=== PATIENT | female | born 1990 | race Caucasian/White ===

== ENCOUNTER 2022-02-11 11:52 | Outpatient (CLI) | payer BC, SELFPAY | END 2022-02-11 11:53 | disposition home or self-care (01) | PROVIDERS: PCP Physician Assistant Medical; Visit Provider Physician Assistant | DX: Z87.59 Personal history of other complications of pregnancy, childbirth and the puerperium (principal) | CPT/HCPCS: 84702 ==

== ENCOUNTER 2022-02-16 14:00 | Outpatient (CLI) | payer BC, SELFPAY ==
--- NOTE | 2022-02-16 14:00 | CRLHL7_ITS ---
For Patients: As a result of the Cures Act, medical imaging exams and procedure reports are released immediately into your electronic medical record. You may view this report before your referring provider. If you have questions, please contact your health care provider. INDICATION: First trimester scan, establish dates. COMPARISON: None. TECHNIQUE: Real-time brewer-scale imaging of the pelvis was performed. FINDINGS: Sonographic imaging demonstrates a single living intrauterine gestation. The embryo demonstrates a regular cardiac rate measuring 158 beats per minute. The embryo`s crown-rump length measurement of 1.4 cm corresponds to a gestational age of 7 weeks 4 days with a sonographic due date of 10/01/2022. There is a normal-appearing yolk sac. There are no gross abnormalities noted within the embryo at this early state of development. The gestational sac has a normal appearance. There is a 4 x 4 x 2 millimeter perigestational hemorrhage. The amount of fluid within the sac appears appropriate for gestational age. The cervix is closed. The myometrium appears normal. The ovaries are of normal size. Corpus luteal cyst right ovary measuring 1.9 x 1.3 x 1.6 cm there are no suspicious fluid collections noted in the cul-de-sac. IMPRESSION: Single living intrauterine with sonographic gestational age 7 weeks 4 days and sonographic due date of 10/01/2022. Dictated by Jose Pruitt MD @ 02/17/2022 10:56:15 AM (Electronically Signed)
== END 2022-02-16 14:01 | disposition home or self-care (01) ==
LOC: US 14:01
PROVIDERS: PCP Physician Assistant Medical; Visit Provider Physician Assistant
DX: Z34.91 Encounter for supervision of normal pregnancy, unspecified, first trimester (principal); Z3A.01 Less than 8 weeks gestation of pregnancy
CPT/HCPCS: 76817

== ENCOUNTER 2022-02-16 15:55 | Outpatient (CLI) | payer BC, SELFPAY ==
[2022-02-16 21:13] LABS: Hepatitis B Surface Antigen* Negative (Negative)
[2022-02-16 21:22] LABS: HIV 1/2/P24 Combo Screen* Negative (Negative)
[2022-02-16 21:30] LABS: Hepatitis C Virus Antibody* Negative (Negative)
[2022-02-18 15:30] LABS: Varicella-Zoster Virus Ab, IgG 90.7 IV
[2022-02-18 15:34] LABS: Rubella Antibody IgG 26.7 IU/mL
[2022-02-18 20:11] LABS: Rapid Plasma Reagin (RPR) Non Reactive (Non Reactive)
--- OUTSIDE RECORDS SUMMARY | 2022-03-10 15:56 | XMS_ITS | Encounter Summary ---
:1990 Author Organization [facility] Address [address] [place] [address] Care Team Providers Name Role Phone No Ref-Primary, Physician Primary Care Provider [phone] Encounter Details Date Type Department Care Team Description 07/21/2019 Travel Social History Tobacco Use Types Packs/Day Years Used Date Never Smoker Sex Assigned at Date Recorded Not on file documented as of this encounter Plan of Treatment Not on filedocumented as of this encounter Visit Diagnoses Not on filedocumented in this encounter Care Teams Triage Nurse Relationship Specialty Start Date End Date No Ref-Primary, Physician PCP - General 07/21/19 documented as of this encounter
--- OUTSIDE RECORDS SUMMARY | 2022-03-10 15:56 | XMS_ITS | Encounter Summary ---
:1990 Author Organization [facility] Address [address] [address] Care Team Providers Name Role Phone Nemesio Rush Primary Care Provider Unavailable Reason for Visit Reason Comments Follow-up, NOS Encounter Details Date Type Department Care Team Description 12/21/2019 Telemedicine Specialty [facility] Ginna Gandhi, Savita roesophageal reflux [address] [facility]ILDA PECK disease with esophagitis Clinic [address] (Primary Dx) [address] [place], [place] [id number] Social History Tobacco Use Types Packs/Day Years Used Date Smoking Tobacco: Former Smokeless Tobacco: Never Alcohol Use Standard Drinks/Week Comments Yes 0.8 (1 standard drink = 0.6 oz pure alco hol) social, maybe once a month Alcohol Habits Answer Date Recorded How often do you have a drink containing Not asked alcohol? How many drinks containing alcohol do you Not asked have on a typical day when you are drinking? How often do you have six or more drinks on Not asked one occasion? Comment: social, maybe once a month 12/21/2019 Sex Assigned at Date Recorded Not on file documented as of this encounter Progress Notes Ginna Gandhi, MATILDA PECK - 12/21/2019 9:20 AM CDT DIGESTIVE CARE VIDEO VISIT NOTE Patient Name: Juliette Gaming Date: 12/21/2019 Primary Care Provider: Clinician [facility] CC: Follow up GERD, med refill SUBJECTIVE: 29 y.o. female with a history of GERD with esophagitis, depression and unspecified connective tissue disorder had a scheduled video visit today due to COVID-19 restrictions. Provider was in a private home office. Patient was in her living room with no other people present. Quality of video and audio was excellent. Patient has been on PPI ever since her upper endoscopy in 2017 in which she was found to have grade a esophagitis and no evidence of H pylori. She reports she currently takes her omeprazole daily in the morning before breakfast and only takes the 2nd dose if she is going to have high acid meal or if she has breakthrough symptoms. She reports that if she controls her diet, she rarely needs the 2nd dose. She has never attempted to wean to Pepcid and she denies any dysphagia, odynophagia or melena. Patient reports her joint symptoms started 1st before college and she is currently on Plaquenil. Consuelo uses NSAIDs and reports her joint pain is under good control between plaque 1 now and Tylenolalthough she did break her arm this past winter and had been on NSAIDs for short period of time. Patient does report she did need more PPI/2nd day dosing at that time. PAST MEDICAL HISTORY: Past Medical History: Diagnosis Date ??? Depression (HRC) ??? Dry mouth ??? Gastric reflux ??? Hypercholesterolemia ??? Joint disorder ??? Joint pain saw rheum, on plaquenil ??? Major depressive disorder, single episode, moderate (HRC) 02/07/2010 situational Past Surgical History: Procedure Laterality Date ??? COLONOSCOPY 2015 ??? EXTRACT, WISDOM/SINGLE TOOTH ??? UPPER GI ENDOSCOPY 2017 gastritis CURRENT MEDICATIONS: etonogestrel (NEXPLANON) 68 MG implant, Inject 68 mg subcutaneously continuous., Disp: , Rfl: fexofenadine (PATRICIA) 180 MG tablet, Take 180 mg by mouth daily as needed for Other., Disp: , Rfl: fluticasone (FLONASE) 50 MCG/ACT nasal solution, APPLY OR INSTILL 1 SPRAY INTO BOTH NOSTRILS DAILY.,Disp: 48 g, Rfl: 1 hydroxychloroquine (PLAQUENIL) 200 MG tablet, Take 1 Tablet by mouth daily. MUST HAVE PLAQUENIL EYE EXAM FOR FURTHER REFILLS, Disp: 90 Tablet, Rfl: 3 omeprazole (PRILOSEC) 20 MG capsule, TAKE 1 CAPSULE BY MOUTH TWICE DAILY BEFORE MEALS. TAKE 30 TO 60MINUTES BEFORE BREAKFAST AND EVENING MEAL., Disp: 180 Capsule, Rfl: 1 No current facility-administered medications on file as of 12/21/2019. ALLERGIES/SENSITIVITIES: No Known Allergies FAMILY HISTORY: No family history of GI diseases or malignancies. SOCIAL HISTORY: Tobacco use: Denies Alcohol use: Rare REVIEW OF SYSTEMS: GENERAL: Denies any unintentional weight loss, fevers, chills, dysphagia, odynphagia, melena or hematochezia. HEENT: Negative. CARDIAC: No chest pain or palpitations. PULMONARY: No shortness of breath or cough. MUSCULOSKELETAL: Chronic arthralgias DERMATOLOGIC: Denies any new skin rashes, juandice or pruritis. GENITOURINARY: Denies any dysuria, frequency, dark urine, hematuria or incontinence. NEUROLOGIC: Denies any headaches, weakness, focal numbness or confusion/altered mental status. GASTROINTESTINAL: See HPI ENDOCRINE: No thyroid or endocrine dysfunction known to patient. LYMPH: No bruising, bleeding or lymphadenopathy. PSYCHOLOGIC: No psychologic or psychiatric problems. Remainder of 12 point review of systems is otherwise negative. IMPRESSION: GERD Patient with history of significant GERD and evidence of grade a esophagitis on previous EGD reportsshe usually has good control of her acid reflux on once daily PPI only rarely needing to take the 2nd day dosing. She has never attempted to wean to Pepcid and she does attempt lifestyle modifications with decreased in spicy foods, citrus foods and limiting NSAIDs. We also discussed small frequent meals and not eating within a few hours of bedtime to also improve overall reflux. We discussed that attempting to wean to Pepcid would be ideal but if she hot as breakthrough reflux, would continue on once daily PPI. Would recommend she take calcium and vitamin-D while on PPI and have a yearly magnesium lab level checked. We did discuss the recent literature regarding PPI use under reason we would like to wean down to an H2 nora if possible. Patient is agreeable to above plan. She agrees to attempt to wean down to Pepcid and will be given a2 week prescription. If that works for her, will give her a prescription for Pepcid, if this does not work, go back to omeprazole. PLAN/RECOMMENDATIONS: 1. Trial of BID Pepcid. 2. Check a mag level. 3. Patient given the phone number to clinic for symptom update. If the Pepcid works will give her prescription for this, if not she can go back on omeprazole. 4. If she is going back on omeprazole, would recommend a daily calcium/vitamin-D supplement. 5. Reviewed antireflux precautions including avoiding spicy foods, chocolate, alcohol, caffeine and smoking. Discussed small frequent meals, no eating within three hours of bedtime and sleeping with the HOB slightly elevated. Total time of this video visit was 10 minutes in which greater than 50% of the visit was spent in counseling and coordination of care for GERD. Ginna Gandhi APRN. MATILDA [facility] [phone] documented in this encounter Plan of Treatment Not on filedocumented as of this encounter Visit Diagnoses Diagnosis Gastroesophageal reflux disease with eso phagitis - Primary documented in this encounter Care Teams Fur Vault Attendant Relationship Specialty Start Date End Date Victor Manuel Clinician PCP - General 11/22/[address] [place], [place] [address] documented as of this encounter
--- OUTSIDE RECORDS SUMMARY | 2022-03-10 15:56 | XMS_ITS | Encounter Summary ---
:1990 Author Organization [facility] Address [address], [place] [address] Care Team Providers Name Role Phone [facility], Clinician Primary Care Provider Unavailable Reason for Visit Reason Comments Video Visit Follow-up Encounter Details Date Type Department Care Team Description 12/11/2019 Telemedicine Tennyson Merlin Dacosta MD Undifferentiated connective tissue disea se (HRC); Rheumatology [address] [place] [address] High risk medication use [address] [place] [address] [phone] Social History Tobacco Use Types Packs/Day Years Used Date Smoking Tobacco: Former Smokeless Tobacco: Never Alcohol Use Standard Drinks/Week Comments Yes 0.8 (1 standard drink = 0.6 oz pure alco hol) soc Alcohol Habits Answer Date Recorded How often do you have a drink containing alcohol? Not asked How many drinks containing alcohol do you have on a typical Not asked day when you are drinking? How often do you have six or more drinks on one occasion? No t asked Comment: soc 05/26/2013 Sex Assigned at Date Recorded Not on file documented as of this encounter Progress Notes Merlin Dacosta MD - 12/11/2019 9:30 AM CDT Rheumatology Follow up Note This is a video visit. In the context of recent development with Coronavirus 19 the decision was made to schedule a video visit instead of an office visit. HPI: Juliette Gaming is a 29 y.o. female with medical history as stated below including history of undifferentiated connective tissue disease. Reviewing previous medical records, patient was previouslyseen by Dr. Winn in 2013 with a clinical presentation of generalized arthralgia, positive MELISSA and elevated inflammatory markers. She responded well to systemic prednisone and was started on [id number] mg twice daily which later on was lowered to 200 mg daily. Last time she was seen by Dr. Jiang and at that time it was felt that her disease was under control and stable. The decision was made to continue the Plaquenil 200 mg daily as a maintenance therapy. Patient is schedule today for follow-upa year and half later. She has been happy with the outcome so far from Plaquenil. Denies any skin rash, no sicca symptoms, no oral ulcers, no sun sensitivity, no Raynaud's phenomena. Sometimes morning stiffness lasting up to 1/2 hour. Does not take anything for pain. Denies any chest pain or shortnessof breath. ROS: Denies any fevers or chills. No chest pain or shortness of breath. No sicca symptoms, no oral ulcers, no Raynaud's phenomena. No skin rash, no sun sensitivity. The rest of review of systems is negative or as stated per history of present illness. Patient Active Problem List Diagnosis ??? Chronic rhinitis ??? Cough ??? Contraceptive surveillance ??? Insomnia ??? Abnormal TSH ??? Familial hyperlipidemia ??? Undifferentiated connective tissue disease (HRC) ??? Cervical cancer screening ??? High risk medication use Past Medical History: Diagnosis Date ??? Depression (HRC) ??? Dry mouth ??? Gastric reflux ??? Hypercholesterolemia ??? Joint disorder ??? Joint pain saw rheum, on plaquenil ??? Major depressive disorder, single episode, moderate (HRC) 02/07/2010 situational Past Surgical History: Procedure Laterality Date ??? COLONOSCOPY 2015 ??? EXTRACT, WISDOM/SINGLE TOOTH ??? UPPER GI ENDOSCOPY 2017 gastritis Outpatient Encounter Medications as of 12/11/2019 Medication Sig Dispense Refill ??? etonogestrel (NEXPLANON) 68 MG implant Inject 68 mg subcutaneously continuous. ??? fexofenadine (PATRICIA) 180 MG tablet Take 180 mg by mouth daily as needed for Other. ??? fluticasone (FLONASE) 50 MCG/ACT nasal solution APPLY OR INSTILL 1 SPRAY INTO BOTH NOSTRILS DAILY. 48 g 1 ??? hydroxychloroquine (PLAQUENIL) 200 MG tablet Take 1 Tablet by mouth daily. MUST HAVE PLAQUENIL EYE EXAM FOR FURTHER REFILLS 90 Tablet 3 ??? omeprazole (PRILOSEC) 20 MG capsule TAKE 1 CAPSULE BY MOUTH TWICE DAILY BEFORE MEALS. TAKE 30 TO60 MINUTES BEFORE BREAKFAST AND EVENING MEAL. 180 Capsule 1 ??? [DISCONTINUED] hydroxychloroquine (PLAQUENIL) 200 MG tablet Take 1 Tablet by mouth two times a day. MUST HAVE PLAQUENIL EYE EXAM FOR FURTHER REFILLS 60 Tablet 0 No facility-administered encounter medications on file as of 12/11/2019. No Known Allergies Social History Substance and Sexual Activity Alcohol Use Yes ??? Alcohol/week: 0.8 standard drinks ??? Types: 1 Standard drinks or equivalent per week Comment: soc Social History Tobacco Use Smoking Status Former Smoker Smokeless Tobacco Never Used EXAM General Appearance: Pleasant, alert, appropriate appearance for age. No acute distress HEENT Exam: Normocephalic, atraumatic, clear sclera. Neck Exam: Supple, no masses. Chest/Respiratory Exam: Patient breathing normally, no signs of distress. Musculoskeletal Exam: Normal muscle bulk. No signs of active synovitis visualized on video exam. No joint effusion. Full range of motion in all 4 extremities. Skin: no rash Neurologic Exam: Nonfocal, normal gross motor movement and coordination. No tremor. Lab: Lab Results Component Value Date WBC 6.9 04/19/2017 RBC 4.63 04/19/2017 Hemoglobin 12.1 04/19/2017 HCT 37.5 04/19/2017 MCV 81.0 04/19/2017 RDW 13.3 04/19/2017 Platelets 311 04/19/2017 Lab Results Component Value Date AST (SGOT) 27 02/23/2014 Lab Results Component Value Date Creatinine 0.69 05/03/2018 Assessment and Plan: Patient with longstanding history of undifferentiated connective tissue disease has been stable on current therapy with Plaquenil 200 mg daily. At this time there is a low suspicion for any active disease. The decision was made to continue current therapy of Plaquenil 200 mg daily since this has been beneficial for her. Recommend annual eye exam during the time on Plaquenil. Return to clinic in 1 year for follow-up or sooner if needed. Merlin Dacosta. Rheumatology [facility] documented in this encounter Plan of Treatment Not on filedocumented as of this encounter Visit Diagnoses Diagnosis Undifferentiated connective tissue disea se (HRC) Unspecified diffuse connective tissue di sease High risk medication use Encounter for long-term (current) use of other medications documented in this encounter Care Teams Insert Molding Operator Relationship Specialty Start Date End Date Victor Manuel, Clinician PCP - General 11/22/18 [address] [address] documented as of this encounter
--- OUTSIDE RECORDS SUMMARY | 2022-03-10 15:56 | XMS_ITS | Encounter Summary ---
:1990 Author Organization [facility] Address [address] [address] Care Team Providers Name Role Phone [facility], Clinician Primary Care Provider Unavailable Reason for Visit Reason Comments Refill omeprazole (PRILOSEC) 20 MG capsule [Pharmacy Med Name: OMEPRAZOLE 20MG CAPSULES] Encounter Details Date Type Department Care Team Description 05/12/2019 Refill [facility] [address] , Refill (omeprazole [facility] ENGLISH INSTRUCTOR, GAS CHECK PAD MAKER (PRILOSEC) 20 MG capsule [address] [Pharmacy Med Name: [place] [address] [place], [place] OMEPRAZOLE 20MG [phone] [id number] CAPSULES]) [phone] (Wo rk) Social History Tobacco Use Types Packs/Day Years [...] on file documented as of this encounter Nursing Notes Gwen Bear, MAGO - 10/10/2019 4:13 PM CDT PA approved for omeprazole (PRILOSEC) 20 MG capsule. Pharmacy notified. Omari Muhammad APRN, GAS CHECK PAD MAKER - 05/12/2019 2:17 PM CDT Please call Juliette to have labs drawn to make sure she does not have any deficiencies from omeprazole use. Thank you. Omari Muhammad APRN, MATILDA 05/12/2019, 2:17 PM Interface, Out Surescripts Prov Query - 05/12/2019 2:09 PM CDT omeprazole (PRILOSEC) 20 MG capsule [Pharmacy Med Name: OMEPRAZOLE 20MG CAPSULES] GERD / PUD - PPI's -> The requested sig has changed from the last order. -> Refill x 3 months (courtesy refill. overdue for an office visit and Mg Level check) -> Calculate quantity and refills manually. They could not be estimated due to missing or unreadable information. Last qualifying visit: 05/03/2018 (in [facility] GASTRO[facility] with OMARI MUHAMMAD) Next scheduled visit: None Last ordered by OMARI MUHAMMAD: 05/03/2018 (374 days ago) QTY: 180, Refills: 3, Sig: take 1 capsule by mouth two times a day before meals. take 30-60 minutes before breakfast and evening meal (changed) Mg Level: 2.5 mg/dL on 05/03/2018 Powered by Zendrive, Reference: [id number], 05/12/2019 2:09:16 PM CDT, Pool: Jb Sahni Care Team ([id number]) ERTY MANAGEMENT SPECIALIST Interface, Out [employer] Prov Query - 05/12/2019 2:09 PM CDT The following lab order(s) may be associated with the Result Note below: MAGNESIUM Notes Recorded by Chrissie Acharya LPN on 05/03/2018 at 2:07 PM Results letter sent. Chrissie Acharya LPN 05/03/2018, 2:07 PM ------ Notes Recorded by Omari Muhammad APRN, GAS CHECK PAD MAKER on 05/03/2018 at 1:16 PM Juliette, Your electrolyte and magnesium levels are normal. Your vitamin D level is quite low which could be contributing to joint and muscle pain. Please take vitamin D and calcium supplements as we discussed during your visit. Please call for further questions or concerns. Omari Muhammad APRN, GAS CHECK PAD MAKER 05/03/2018, 1:16 PM ERTY MANAGEMENT SPECIALIST documented in this encounter Plan of Treatment Not on filedocumented as of this encounter Visit Diagnoses Diagnosis Current use of proton pump inhibitor - P rimary Gastroesophageal reflux disease, esophag itis presence not specified documented in this encounter Care Teams Product Managent Intern Relationship Specialty Start Date End Date Victor Manuel, Nemesio PCP - General 11/22/[address] [place] [address] documented as of this encounter
--- OUTSIDE RECORDS SUMMARY | 2022-03-10 15:56 | XMS_ITS | Encounter Summary ---
:1990 Author Organization [facility] Address [address] [address] Care Team Providers Name Role Phone [facility], Clinician Primary Care Provider Unavailable Reason for Visit Reason Comments Refill omeprazole (PRILOSEC) 20 MG capsule [Pharmacy Med Name: OMEPRAZOLE 20MG CAPSULES] Encounter Details Date Type Department Care Team Description 03/16/2020 Refill [facility] [address] Muhammad , Refill (omeprazole [facility] PEST LOCATOR, REAL ESTATE ECONOMIST (PRILOSEC) 20 MG capsule [address] [Pharmacy Med Name: [place] [address] [place], [place] OMEPRAZOLE 20MG [phone] [id number] [address]ES]) [phone] (Wo rk) Social History Tobacco Use Types [...] documented as of this encounter Nursing Notes Rani Chacon RN - 03/21/2020 10:13 AM CDT Called patient to discuss refill for Omeprazole. Patient reports trying to wean off of the Omeprazole: tried it for a couple of weeks and took the Pepcid. She said that the Pepcid wears off after 8 hours. Patient restarted Omeprazole once daily and Pepcid at bedtime. Ginna Gandhi APRN, CNP is out of office this week. Will send refill encounter to Irina Martinez PA-C to review and refill if appropriate. Rani Chacon RN 03/21/2020, 10:21 AM Jory Sequeira RN - 03/18/2020 3:15 PM CDT Called patient, left message for patient to call the digestive care clinic and ask to speak to a nurse Patient is overdue for magnesium lab, Order placed for magnesium level Patient was to wean off of omeprazole and try two weeks of Pepcid to see if this works for her reflux per Ginna Gandhi APRN, CNP telemedicine note from 12/21/2019 Jory Sequeira RN 03/18/2020, 3:19 PM Telemedicine 12/21/2019 IMPRESSION: GERD Patient with history of significant GERD and evidence of grade a esophagitis on previous EGD reportsshe usually has good control of her acid reflux on once daily PPI only rarely needing to take the 2nd day dosing. ?? She has never attempted to wean to [...] down to an H2 nora if possible. ?? Patient is agreeable to above plan. She agrees to attempt to wean down to Pepcid and will be given a2 week prescription. If that works for her, will give her a prescription for Pepcid, if this does not work, go back to omeprazole. ?? PLAN/RECOMMENDATIONS: 1. Trial of BID Pepcid. 2. [...] and sleeping with the HOB slightly elevated. ? Total time of this video visit was 10 minutes in which greater than 50% of the visit was spent in counseling and coordination of care for GERD. ?? Ginna Gandhi APRN. REAL ESTATE ECONOMIST Interface, Out Surescripts Prov Query - 03/16/2020 3:28 AM CDT omeprazole (PRILOSEC) 20 MG capsule [Pharmacy Med Name: OMEPRAZOLE 20MG CAPSULES] GERD / PUD - PPI's -> The requested sig has changed from the last order. -> Mg Level is overdue (performed 23 months ago, required every 12 months) Last qualifying visit: 12/21/2019 (in [facility] GASTROENTEROLOGY with GINNA GANDHI) Next scheduled visit: None Last ordered by OMARI MUHAMMAD R: 05/12/2019 (309 days ago) QTY: 180, Refills: 1, Sig: take 1 capsule by mouth twice daily before meals. take 30 to 60 minutes before breakfast and evening meal. (changed) Mg Level: 2.5 mg/dL on 05/03/2018 Powered by [employer]orank, Reference: [id number], 03/16/2020 3:28:36 AM CDT, Pool: Jb Sahni Care Team ([id number]) Interface, Out [facility] Query - 03/16/2020 3:28 AM CDT The following lab order(s) may be associated with the Result Note below: MAGNESIUM Notes Recorded by Chrissie Acharya LPN on 05/03/2018 at 2:07 PM Results letter sent. Chrissie Acharya LPN 05/03/2018, 2:07 PM ------ Notes Recorded by Omari Muhammad APRN, REAL ESTATE ECONOMIST on 05/03/2018 at 1:16 PM Juliette, Your electrolyte and magnesium levels are normal. Your vitamin D level is quite low which could be contributing to joint and muscle pain. Please take vitamin D and calcium supplements as we discussed during your visit. Please call for further questions or concerns. Omari Muhammad APRN, MATILDA 05/03/2018, 1:16 PM documented in this encounter Plan of Treatment Not on filedocumented as of this encounter Visit Diagnoses Diagnosis Gastroesophageal reflux disease, esophag itis presence not specified documented in this encounter Care Teams Skin Lifter Bacon Relationship Specialty Start Date End Date Victor Manuel, Clinician PCP - General 11/22/18 [address] [place] [address] documented as of this encounter
--- OUTSIDE RECORDS SUMMARY | 2022-03-10 15:56 | XMS_ITS | Encounter Summary ---
:1990 Author Organization [place] Address [facility] [place] [address] Care Team Providers Name Role Phone Lazarus Galeas MD Primary Care Provider [phone] Reason for Visit Reason Comments Urgent Care Head Injury Patient reports got knocked on ice playing hockey yesterday, this am neck hurts worse than yesterday, head hurts the same. Denies loss of consciousness, denies numbne ss/tingling of extremities. Encounter Details Date Type Department Care Team Description 11/24/2009 Office Visit [facility] W, Head C ontusion (Primary Dx); Urgent Care Tana AKINS Neck Pain [address] [place] [address] Social History Tobacco Use Types Packs/Day Years Used Date Never Smoker Sex Assigned at Date Recorded Not on file documented as of this encounter Last Filed Vital Signs Vital Sign Reading Time Taken Comments Blood Pressure 106/65 11/24/2009 11:04 AM CDT Pulse 98 11/24/2009 11:04 AM CDT Temperature 36.4 ??C (97.6 ??F) 11/24/2009 11:04 AM CDT Respiratory Rate - - Oxygen Saturation - - Inhaled Oxygen Concentration - - Weight 53.5 kg (118 lb) 11/24/2009 11:04 AM CDT Height 158.8 cm (5' 2.5) 11/24/2009 11:04 AM CDT Body Mass Index 21.24 11/24/2009 11:04 AM CDT Body Mass Index Percentile 48.24 % 11/24/2009 11:04 AM C DT Growth Chart: CDC (Girls, 2-20 Years) documented in this encounter Progress Notes Fox Duarte - 11/24/2009 11:30 AM CDT HPI 19 year old female injured playing hockey yesterday. Patient was wearing a helmet when another player hit her causing her to fall backwards and hit the back of her head on the ice. Denies loss of consciousness, blurred vision, nausea or emesis. Patient states she has had a mild concussion in the past. Patient played only a little bit of the rest of the hockey game. Headache and neck pain persists today. Patient denies any amnesia or trouble concentrating. Headache and neck pain intensity if mild to moderate. Past Medical History: Denies chronic problem Review of Systems Constitutional: Negative. HENT: Positive for neck pain. Negative for hearing loss, ear pain, nosebleeds, congestion, sore throat and tinnitus. Eyes: Negative. Respiratory: Negative. Cardiovascular: Negative. Gastrointestinal: Negative. Negative for nausea and vomiting. Musculoskeletal: Positive for back pain. Skin: Negative. Neurological: Positive for headaches. Negative for dizziness, sensory change, focal weakness and loss of consciousness. All other systems reviewed and are negative. Physical Exam Nursing note and vitals reviewed. Constitutional: She is oriented to person, place, and time and well-developed, well-nourished, and in no distress. HENT: Head: Normocephalic. Right Ear: Tympanic membrane and ear canal normal. Left Ear: Tympanic membrane and ear canal normal. Nose: Nose normal. Mouth/Throat: Oropharynx is clear and moist. Mild local tenderness posterior skull. Eyes: Conjunctivae and extraocular motions are normal. Pupils are equal, round, and reactive to light. Neck: Normal range of motion. Neck supple. Bilateral paracervical and trapezius muscle tenderness with palpation. Cardiovascular: Normal rate and regular rhythm. Pulmonary/Chest: Effort normal and breath sounds normal. She exhibits no tenderness. Abdominal: Soft. Bowel sounds are normal. No tenderness. Musculoskeletal: Normal range of motion. Neurological: She is alert and oriented to person, place, and time. She has normal reflexes. No cranial nerve deficit. Skin: Skin is warm and dry. C-spine x-ray: within normal limits Assessment: Head contusion Neck/upper back strain Plan: Conservative cares. No physical exertion until at least 24 hours symptom free (neurologically). Warned of second impact syndrome. Follow up with primary MD if symptoms persist. Check official radiology report. If acutely worsens, to emergency department sooner. documented in this encounter Nursing Notes 11/24/2009 10:35 AM CDT >> FARA Thibodeaux Nov 24, 2009 11:06 AM Patient presents with: Urgent Care Head Injury - Patient reports got knocked on ice playing hockey yesterday, this am neck hurts worsethan yesterday, head hurts the same. Denies loss of consciousness, denies numbness/tingling of extremities. Initial BP 106/65 Pulse 98 Temp(Src) 97.6 ??F (36.4 ??C) (Oral) Ht 5' 2.5 (1.588 m) Wt 118 lb (53.524 kg) Estimated Body mass index is 21.24 kg/(m^2) as calculated from the following: Height as of this encounter: 5' 2.5(1.588 m). Weight as of this encounter: 118 lb(53.524 kg).. BP completed using cuff size: regular Fara Mcintosh RN documented in this encounter Plan of Treatment Not on filedocumented as of this encounter Procedures Procedure Name Priority Date/Time Associated Diagnosis Comme nts X-RAY CERV SPINE Routine 11/24/2009 Neck Pain Results for this 2-3 VIEWS procedure are i n the results section . documented in this encounter Results X-RAY CERV SPINE 2 VW (11/24/2009) Anatomical Region Laterality Modality Other Narrative This result has an attachment that is no t available. Fox Duarte MD GENERAL IMAGING documented in this encounter Visit Diagnoses Diagnosis Head contusion - Primary Contusion of face, scalp, and neck excep t eye(s) Neck pain Cervicalgia documented in this encounter Care Teams General Production Manager Relationship Specialty Start Date End Date Lazarus Galeas MD PCP - General 10/07/08 07/19/19 [id number] [facility] [place] [id number] documented as of this encounter
--- OUTSIDE RECORDS SUMMARY | 2022-03-10 15:56 | XMS_ITS | Clinical Summary ---
:1990 [facility] Address [address] [place] [address] Care Team Providers Name Role Phone Victor Manuel, Clinician Primary Care Provider Unavailable Source Comments You are receiving this document as you are listed as the primary care provider,follow-up provider, or the patient has been referred to you for consultation.This is in compliance with the Medicare and Medicaid EHR Incentive Program,which states Providers who transition their patient to another setting of careor provider of care or refers their patient to another provider of care shouldprovide summarycare record for each transition of care or referral. [facility] Allergies No known active allergies Medications Medication Sig Dispensed Refills Start Date End Date Status fexofenadine (PATRICIA) Take 180 mg by 0 Active 180 MG tablet mouth daily as needed for Other. fluticasone (FLONASE) 50 APPLY OR 48 g 1 03/22/2017 Active MCG/ACT nasal solution INSTILL 1 SPRAY INTO BOTH NOSTRILS DAILY. hydroxychloroquine Take 1 Tablet 90 Tablet 3 12/11/2019 Active (PLAQUENIL) 200 MG by mouth daily. tabletIndications: MUST HAVE Undifferentiated PLAQUENIL EYE connective tissue EXAM FOR disease (HRC), High risk FURTHER REFILLS medication use famotidine (PEPCID) 20 TAKE 1 TABLET 180 Tablet 3 01/11/2020 Active MG tablet BY MOUTH TWICE DAILY omeprazole (PRILOSEC) 20 Take 1 Capsule 90 Capsule 0 0 Active MG capsuleIndications: by mouth daily Gastroesophageal reflux before disease, esophagitis breakfast. presence not specified Active Problems Problem Noted Date High risk medication use 05/26/2018 Cervical cancer screening 04/07/2017 Overview: 2013 NILM 2017 ASCUS, HPV negative 26 y.o. Plan: annual Pap d/t Plaquenil rx Undifferentiated connective tissue disease 05/25/2016 Abnormal TSH 12/14/2013 Familial hyperlipidemia 12/14/2013 Insomnia 02/18/2011 Contraceptive surveillance 07/29/2010 Chronic rhinitis 12/23/2004 Cough 12/23/2004 Resolved Problems Problem Noted Date Resolved Date Major depressive disorder, single episode, moderate 02/08/20 10 10/08/2011 Hypercholesterolemia 12/14/2013 Immunizations Name Administration Dates Next Due 4vHPV (Gardasil) 11/18/2007, 07/13/2007, 05/05/2007 DTaP 02/23/1997, 02/12/1993, 01/10/1992, 1991, 1991 Flu Vac (3+ yrs) 05/23/2008 HepA Adult (19+ yrs) 12/14/2013 HepB, Unspecified Formulation 11/19/1995, 02/12/1993, 1991 Influenza IIV4 (Quadrivalent) 0.5mL 05/26/2018, 04/19/2017, 04/02/2015, ([id number]) 05/10/2014, 05/26/2013 Influenza Vaccine (3+years) ([facility] 04/22/2009 Clinic) Influenza, Unspecified Formulation 05/03/2011 MCV4 (Menactra) 05/05/2007 MMR 03/12/2004, 10/21/1992 OPV, Trivalent (Orimune or tOPV) 02/23/1997, 02/12/1993, 03/1992, 1991 Pfizer (Comirnaty) COVID-19, 12+ Yrs 09/10/2020, 08/20/2020 Purple Top Td 03/12/2004 Tdap 10/08/2011 Varicella 05/16/2009, 11/19/1995 Family History Medical History Relation Name Comments Anxiety Father Other Father Possible lactose intolerance Hyperlipidemia Mother Coronary Artery Disease Maternal Grandfather d [place] in his 40s Other Maternal Grandmother arthritis Alzheimer's Paternal Grandfather Asthma Paternal Grandfather Coronary Artery Disease Paternal Grandfather Glaucoma Paternal Grandmother Cancer, Breast Negative Family History Cancer, Colon Negative Family History Cancer, Ovary Negative Family History Macular Degeneration Negative Family History Retinal Detachment Negative Family History Relation Name Status Comments Father Alive Mother Alive Brother Alive Maternal Grandfather (Age 45) [place] Maternal Grandmother (Age ? age) pancre atic ca Paternal Grandfather Alive Paternal Grandmother Alive Social History Tobacco Use Types Packs/Day Years [...] Assigned at Date Recorded Not on file Last Filed Vital Signs Vital Sign Reading Time Taken Comments Blood Pressure 122/47 05/26/2018 8:32 AM CDT Pulse 90 05/26/2018 8:32 AM CDT Temperature 36.9 ??C (98.5 ??F) 05/03/2018 8:12 AM CDT Respiratory Rate 16 04/28/2017 8:46 AM CDT Oxygen Saturation 100% 07/29/2017 3:05 PM PHYSICAL THERAPY PROFESSOR Inhaled Oxygen Concentration - - Weight 90.3 kg (199 lb) 05/26/2018 8:32 AM CDT Height 160 cm (5' 3) 05/26/2018 8:32 AM CDT Body Mass Index 35.25 05/26/2018 8:32 AM CDT Plan of Treatment Health Maintenance Due Date Last Done Comments HIV Screening (Preventive 2007 Services) Pap 03/26/2018 03/26/2017, 05/26/2013 Adult Preventive Visit 03/26/2019 03/26/2017, 05/26/2013, 12/16/2011, Additional history exists COVID-19 Vaccine (3 - 02/07/2021 09/10/2020, 08/20/2020 Booster for Pfizer series) DTaP/Tdap/Td (7 - Tdap) 10/07/2021 10/08/2011, 03/12/2004, 03/12/2004, Additional history exists Influenza (#1) 2022 06/30/2021, 05/26/2018, 04/19/2017, Additional history exists Zoster/Shingles (1 of 2) 2041 HepB Completed 11/19/1995, 02/12/1993, 07/02/1992 IPV (Polio) Completed 02/23/1997, 02/12/1993, 1991, Additional history exists MCV4 Aged Out 05/05/2007 No longer eligib le based on patient 's age to complete this topic HepA Completed 12/14/2013, 11/21/2012 Hep C Screening (Preventive Completed 02/23/2014 Services) HPV Vaccine Completed 10/20/2021, 11/18/2007, 07/13/2007, Additional history exists Hib Aged Out No longer eligib le based on patient 's age to complete this topic Pneumococcal Aged Out No longer eligib le based on patient 's age to complete this topic Insurance Payer Benefit Subscriber ID Effective Phone Address Type Plan / Dates Group VICTOR MANUEL [facility] [id number] 2015-Pres C ommercial DENTAL PLAN [facility] ent DENTAL BC[facility] [id number] 2020-Pres [address] om[address] ent [id number] [place] [address] Care Teams Sr. Payroll Processor Relationship Specialty Start Date End Date Victor Manuel Clinician PCP - General 11/22/[address] [place] [address]
--- OUTSIDE RECORDS SUMMARY | 2022-03-10 15:56 | XMS_ITS | Encounter Summary ---
:1990 Author Organization [facility] Address [address] [place] [address] Care Team Providers Name Role Phone No Ref-Primary, Physician Primary Care Provider [phone] Reason for Referral Diagnostic Imaging CT Scan (Routine) - Closed Specialty Diagnoses / Procedures Referred By Contact Refer red To Contact Radiology. Diagnoses Fracture of left olecranon process Sandy Vanegas MD Ct Scan Procedures CT Elbow Left w/o Contrast [facility] [address] [facility] [address] [place] [phone] Fax: Referral ID Status Reason Start Date Expiration Date Visits Requ ested Visits Authorized [id number] Closed 07/20/2019 07/19/2020 1 1 UTER FORENSIC EXAMINER Reason for Visit Diagnostic Imaging CT Scan (Routine) - Closed Specialty Diagnoses / Procedures Referred By Contact Refer red To Contact Radiology. Diagnoses Fracture of left olecranon process Sandy Vanegas MD Ct Scan Procedures CT Elbow Left w/o Contrast [facility] [address] [facility] [address] [place] [phone] Fax: Referral ID Status Reason Start Date Expiration Date Visits Requ ested Visits Authorized [id number] Closed 07/20/2019 07/19/2020 1 1 Encounter Details Date Type Department Care Team Description 07/21/[address] [facility] Sandy Vanegas of left [facility] MD Lilia olecranon process [address] [place], [place] [facility] [address] [phone] [address] [place], [place] [id number] Social History Tobacco Use Types Packs/Day Years Used Date Never Smoker Sex Assigned at Date Recorded Not on file documented as of this encounter Medications at Time of Discharge Medication Sig Dispensed Refills Start Date End Date NEW MED control pill, 0 doesn't know name ondansetron (ZOFRAN ODT) Take 1 tablet (4 mg) 10 tablet 0 1 09/19/2018 4 MG ODT tab by mouth every 8 hours as needed for nausea oxyCODONE-acetaminophen Take 1-2 tablets by 12 tablet 0 (PERCOCET) 5-325 MG mouth every 4 hours tablet as needed for pain ibuprofen (ADVIL/MOTRIN) Take 1 tablet (600 60 tablet 0 08/18/2019 600 MG tablet mg) by mouth every 6 hours as needed for moderate pain or fever documented as of this encounter Plan of Treatment Not on filedocumented as of this encounter Procedures Procedure Name Priority Date/Time Associated Diagnosis Comme nts CT ELBOW LEFT W/O Routine 07/21/2019 8:12 AM Fracture of left Results for this CONTRAST COMPUTER FORENSIC EXAMINER olecranon process procedure are in the results section. documented in this encounter Results CT Elbow Left w/o Contrast (07/21/2019 8:12 AM COMPUTER FORENSIC EXAMINER) Anatomical Region Laterality Modality Left Elbow, SUBRAD CT MSK, UMP CT MSK, RAD CT Computed Tomography Specimen (Source) Anatomical Location Collection Method / Collectio n Time Received Time / Laterality Volume Impressions 07/21/2019 12:01 PM COMPUTER FORENSIC EXAMINER IMPRESSION: Redemonstrated are the transverse fracture at the base of the olecranon process which shows no sig nificant displacement, oblique fracture lateral epicondyle, mildly disp laced coronoid fracture, minimally displaced fracture lateral mar gin radial head. No significant change. 3-D reconstructions are provided. ALEXANDRU OATES MD Narrative 07/21/2019 12:01 [address] FORENSIC EXAMINER CT ELBOW LEFT WITHOUT CONTRAST 07/21/2019 8:12 AM HISTORY: Evaluate left elbow fracture. F racture of left olecranon process. TECHNIQUE: Axial scans were performed th rough the left elbow with 3-D reconstruction. Radiation dose for this scan was reduced using automated exposure control, adjustment o f the mA and/or kV according to patient size, or iterative reconstruc tion technique. COMPARISON: CT left elbow from 9. Procedure Note Alexandru Oates MD - 07/21/2019Formattin g of this note might be different from the original. CT ELBOW LEFT WITHOUT CONTRAST 9 8:12 AM HISTORY: Evaluate left elbow fracture. F racture of left olecranon process. TECHNIQUE: Axial scans were performed th rough the left elbow with 3-D reconstruction. Radiation dose for this scan was reduced using automated exposure control, adjustment o f the mA and/or kV according to patient size, or iterative reconstruc tion technique. COMPARISON: CT left elbow from 9. IMPRESSION: Redemonstrated are the trans verse fracture at the base of the olecranon process which shows no sig nificant displacement, oblique fracture lateral epicondyle, mildly disp laced coronoid fracture, minimally displaced fracture lateral mar gin radial head. No significant change. 3-D reconstructions are provided. ALEXANDRU OATES MD Sandy Vanegas MD IMG CT ORDERABLES documented in this encounter Visit Diagnoses Diagnosis Fracture of left olecranon process Closed fracture of olecranon process of ulna documented in this encounter Care Teams Print Producer Relationship Specialty Start Date End Date No Ref-Primary, Physician PCP - General 07/21/19 documented as of this encounter
--- OUTSIDE RECORDS SUMMARY | 2022-03-10 15:56 | XMS_ITS | Clinical Summary ---
:1990 Author Organization [place] Address [address] [place] [address] Care Team Providers Name Role Phone No Ref-Primary, Physician Primary Care Provider [phone] Allergies No known active allergies Medications Medication Sig Dispensed Refills Start Date End Date Status NEW MED control 0 Active pill, doesn't know name ondansetron (ZOFRAN Take 1 tablet (4 10 tablet 0 07/19/2019 Active ODT) 4 MG ODT tab mg) by mouth every 8 hours as needed for nausea oxyCODONE-acetaminophe Take 1-2 tablets 12 tablet 0 07/19/2019 Active n (PERCOCET) 5-325 MG by mouth every 4 tablet hours as needed for pain Social History Tobacco Use Types Packs/Day Years Used Date Never Smoker Sex Assigned at Date Recorded Not on file Last Filed Vital Signs Vital Sign Reading Time Taken Comments Blood Pressure 162/92 07/19/2019 1:30 PM MEDIA RELATIONS ASSOCIATE Pulse 97 07/19/2019 1:30 PM MEDIA RELATIONS ASSOCIATE Temperature 36.4 ??C (97.5 ??F) 07/19/2019 8:22 AM MEDIA RELATIONS ASSOCIATE Respiratory Rate 18 07/19/2019 12:30 PM MEDIA RELATIONS ASSOCIATE Oxygen Saturation 99% 07/19/2019 1:30 PM MEDIA RELATIONS ASSOCIATE Inhaled Oxygen Concentration - - Weight 87.2 kg (192 lb 3.2 oz) 07/19/2019 10:31 AM MEDIA RELATIONS ASSOCIATE Height 158.8 cm (5' 2.5) 11/24/2009 11:04 AM CDT Body Mass Index 34.59 11/24/2009 11:04 AM CDT Plan of Treatment Health Maintenance Due Date Last Done Comments ADVANCE CARE PLANNING 1991 ANNUAL REVIEW OF HM ORDERS 1991 PREVENTIVE CARE VISIT 1991 COVID-19 Vaccine (#1) 01/10/1992 DTAP/TDAP/TD IMMUNIZATION 2002 02/23/1997, 02/12/1993 , (6 - Tdap) 01/10/1992, Additional history exists HIV SCREENING 2006 HEPATITIS C SCREENING 2009 PAP 2012 PHQ-2 (once per calendar 08/02/2021 year) INFLUENZA VACCINE (#1) 2022 05/26/2018, 04/19/2017, 03/31/2016, Additional history exists HEPATITIS B IMMUNIZATION Completed 11/19/1995, 02/12/1993, 07/02/1992 IPV IMMUNIZATION Aged Out No longer eligi ble based on patient 's age to complete this topic MENINGITIS IMMUNIZATION Aged Out No longe r eligible based on patient 's age to complete this topic Pneumococcal Vaccine: Aged Out No longer eligible Pediatrics (0 to 5 Years) based on patient's age and At-Risk Patients (6 to to co mplete this topic 64 Years) Insurance Payer Benefit Plan / Subscriber ID Effective Dates Phone Addre ss Type Group BCBS [place] [id number] 2018-[place]elo [phone] [address] [address] Indemnity t 0 [place] [address] Care Teams Burlap Worker Relationship Specialty Start Date End Date No Ref-Primary, Physician PCP - General 07/21/19
--- OUTSIDE RECORDS SUMMARY | 2022-03-10 15:56 | XMS_ITS | Encounter Summary ---
:1990 Author Organization [facility] Address [address] [place] [address] Care Team Providers Name Role Phone [facility], Clinician Primary Care Provider Unavailable Reason for Visit Reason Comments SKIN LESION Left upper back mole has fal lamonte off, spot mid back possibly removed. Encounter Details Date Type Department Care Team Description 11/14/2021 Procedure Visit [facility] [address] IN LESION (Left Dermatology MD Oma upper back mole has [address] fal lamonte off, spot [address] back possibly [place], [place] re moved. ) [phone] Social History Tobacco Use Types Packs/Day Years [...] documented as of this encounter Progress Notes Ana Elder MD - 11/14/2021 11:15 AM CDT Chief Complaint Patient presents with ??? SKIN LESION Left upper back mole has fallen off, spot mid back possibly removed. History of Present Illness: Juliette Gaming is a 31 y.o. female here for follow- up, we had discussedremoving a mole on the left upper back, the spot has since fallen off and resolved entirely. She would like a mole on her right back removed today as it is intermittently irritated. Past Medical History: No history of skin cancer. She recently suffered a miscarriage. Medications: The patient has a current medication list which includes the following prescription(s): famotidine, fexofenadine, fluticasone propionate, hydroxychloroquine, and omeprazole. Allergies: The patient has No Known Allergies. Physical Exam: General: Well appearing female in no acute distress, alert and oriented x 3, normal affect. Skin: Noresidual nevus or seborrheic keratosis on the left upper back. On the right back there is an exophytic brown papule. Assessment and Plan: 1. Neoplasm of skin (HRC) Objective Right Upper Back: 8 mm brown papule. Shave removal (No CPT) Lesion diameter (cm): 0.8 Informed consent: discussed and consent obtained Timeout: patient name, date of , surgical site, and procedure verified Procedure prep: Patient was prepped and draped in usual sterile fashion Prep type: Isopropyl alcohol Anesthesia: the lesion was anesthetized in a standard fashion Anesthetic: 1% lidocaine w/ epinephrine 1-100,000 local infiltration Instrument used: flexible razor blade Hemostasis achieved with: pressure and aluminum chloride Outcome: patient tolerated procedure well Post-procedure details: sterile dressing applied and wound care instructions given Dressing type: petrolatum and bandage Specimen 1 - Surgical Path, Dermatology Clinical Impression: irritated nevus Return to clinic as needed, asked her to call if the lesion on the left back reoccurs. Ana Elder MD - 11/14/2021 11:15 AM CDT Please call with benign result, no further treatment needed. documented in this encounter Plan of Treatment Not on filedocumented as of this encounter Procedures Procedure Name Priority Date/Time Associated Comments Diagnosis EPIDERMAL / DERMAL Routine 11/14/2021 11:11 Neoplasm of skin R esults for this SHAVING AM CDT (HRC) procedure are i n the results section. SURGICAL PATHOLOGY, Routine 11/14/2021 11:11 Neoplasm of skin Results for this DERMATOLOGY AM CDT (HRC) procedure are i n the results section. documented in this encounter Results Shave removal (No CPT) (11/14/2021 11:11 AM CDT) Narrative EXTERNAL RESULTS - 11/14/2021 11:11 AM C DT Lesion diameter (cm): ??0.8 Informed consent: discussed and consent obtained ?? Timeout: patient name, date of , corey rgical site, and procedure verified ?? Procedure prep: ??Patient was prepped an d draped in usual sterile fashion Prep type: ??Isopropyl alcohol Anesthesia: the lesion was anesthetized in a standard fashion ?? Anesthetic: ??1% lidocaine w/ epinephrin e 1-100,000 local infiltration Instrument used: flexible razor blade ?? Hemostasis achieved with: pressure and a luminum chloride ?? Outcome: patient tolerated procedure wel l ?? Post-procedure details: sterile dressing applied and wound care instructions given ?? Dressing type: petrolatum and bandage ?? Ana Elder MD DERM PROCEDURE ORDERABLES Performing Organization Address City/State/ZIP Code Phon e Number EXTERNAL RESULTS Surgical Path, Dermatology (11/14/2021 11:11 AM CDT) Component Value Ref Test Analysis Performed At [facility] gist Range Method Time Signature Case Report Surgical Pathology Report ? Case: [id number] ? 11/20/2021 [facility] [address] Authorizing Provider: ??Ana Brush MD ? Collected: ? 11/14/2021 1111 ? 2:58 PM DERMATO LOGY Ordering Location: ? [facility] 3800 ? Received: ?11/14/2021 1348 ? CDT ? Dermatology ? Pathologist: ? Urmila Arita MD ? Specimen: ?Skin, Right U pper Back ? FINAL A. Skin, Right Upper Back, shave: 2021 [facility] 3800 Electronically DIAGNOSIS - Compound nevus, extending to the edges of the specimen. 2:58 PM DERMATOLOGY signed by CDT Urmila Arita MD on 11/20/2021 at 2:58 PM Clinical Clinical Impression: irritated nevus [facility] 3800 Information 2:58 PM DERMATOLOGY CDT Microscopic Microscopic 11/20/2021 [facility] 3800 Description examination is 2:58 PM DERMATOLOGY performed. CDT Special Stains A portion of the 11/20/2021 [facility] 380 0 technical 2:58 PM DERMATOLOGY staining was CDT performed at [facility], [address] [place] [address]. The professional interpretation was performed at [facility]. Gross A: 11/20/2021 [facility] 3800 Description Received in formalin, labele d with the patient's name and Skin, Right Upper Back is a 8 x 5 x 2 mm shave biopsy of skin. The specimen is marked with camelia ink, bisected, and submitted entirely in one cassette. NW 2:58 PM DERMATOLOGY CDT Embedded 11/20/2021 [facility] 3800 Images 2:58 PM DERMATOLOGY CDT Specimen Anatomical Collection Method Collection Time Receive d Time (Source) Location / / Volume Laterality Skin (Skin) 11/14/2021 11:11 11/14/2021 1:48 AM CDT PM CDT Comment: Clinical Impression: irritated nevus Ana Elder MD LAB PATHOLOGY Performing Organization Address City/State/ZIP Code Phon e Number [facility] [address] DERMATOLOGY [address] [place], [place] [address] documented in this encounter Visit Diagnoses Diagnosis Neoplasm of skin (HRC) - Primary Neoplasm of unspecified nature of bone, soft tissue, and skin documented in this encounter Care Teams Loss Prevention Agent Relationship Specialty Start Date End Date [facility], Clinician PCP - General 11/22/18 [address] [place] [address] documented as of this encounter
--- OUTSIDE RECORDS SUMMARY | 2022-03-10 15:56 | XMS_ITS | Encounter Summary ---
:1990 Author Organization [facility] Address [address], [place] [address] Care Team Providers Name Role Phone [facility], Clinician Primary Care Provider Unavailable Reason for Visit Reason Comments Refill Encounter Details Date Type Department Care Team Description 02/10/2021 Refill [place] [facility] Merlin Pearl MD Refill [id number] [employer] [facility] [address] [place] [address] [place] [address] [phone] (Wo rk) Social History Tobacco Use Types [...] documented as of this encounter Nursing Notes Allison Valencia LPN - 02/10/2021 3:59 PM CDT Last telemedicine visit dated 12/11/19; continue Plaquenil 200 mg/d. Last renewed same day. Patient was recommended to return to clinic in one year; no future appointment has been set. documented in this encounter Plan of Treatment Not on filedocumented as of this encounter Visit Diagnoses Diagnosis Undifferentiated connective tissue disea se (HRC) Unspecified diffuse connective tissue di sease High risk medication use Encounter for long-term (current) use of other medications documented in this encounter Care Teams Distributor Sales Consultant Relationship Specialty Start Date End Date Victor Manuel Clinician PCP - General 11/22/[address] [place] [address] documented as of this encounter
--- OUTSIDE RECORDS SUMMARY | 2022-03-10 15:56 | XMS_ITS | Encounter Summary ---
:1990 Author Organization [facility] Address [address] [place] [id number] Care Team Providers Name Role Phone Lazarus Galeas MD Primary Care Provider + [phone] Reason for Visit Reason Comments Fall Arm Injury Encounter Details Date Type Department Care Team Description [facility] of left elbow, initial e ncounter; [facility] Emergency Dep t [facility] Closed dislocation of left e lbow, initial encounter; [address] [place] Fall, initial encounter; [place], [place] [address] [place] d displaced fracture of head of left radius, initial encounter; [id number] EPI 100 Displaced fracture of lateral condyle of left humerus, initial encounter for closed fracture [phone] [place], [place] [id number] (Wo rk) Social History Tobacco Use Types Packs/Day Years Used Date Never Smoker Sex Assigned at Date Recorded Not on file documented as of this encounter Last Filed Vital Signs Vital Sign Reading Time Taken Comments Blood Pressure 162/92 07/19/2019 1:30 PM RN SUPPORT SERVICES Pulse 97 07/19/2019 1:30 PM RN [facility] Temperature 36.4 ??C (97.5 ??F) 07/19/2019 8:22 AM RN [facility]PPORT SERVICES Respiratory Rate 18 07/19/2019 12:30 PM RN SUPPORT SERVICES Oxygen Saturation 99% 07/19/2019 1:30 PM RN [facility]PPORT SERVICES Inhaled Oxygen Concentration - - Weight 87.2 kg (192 lb 3.2 oz) 07/19/2019 10:31 AM RN SUPPORT SERVICES Height - - Body Mass Index 34.59 11/24/2009 11:04 AM CDT documented in this encounter Discharge Instructions Discharge InstructionsRebel Brantley MD - 07/19/2019 11:59 AM CST Discharge Instructions Splint Care You had a splint put on today to help protect your injury and help it heal. Splints are used to treat things like strains, sprains, large cuts, and fractures (broken bones). Splints are temporary and are designed to allow for swelling. Be sure your splint is not too tight! If you splint is too tight, it may cause loss of blood supply.Signs of your splint being too tight include: your arm or leg hurting a lot more; your fingers or toes getting numb, cold, pale or blue; or your child is crying, fussing or seeming restless. Generally, every Emergency Department visit should have a follow-up clinic visit with either a primary or a specialty clinic/provider. Please follow-up as instructed by your emergency provider today. Return to the Emergency Department right away if: You have increased pain or pressure around the injury. You have numbness, tingling, or cool, pale, or blue toes or fingers past the injury. Your child is more fussy than normal, crying a lot, or restless. Your splint becomes soft, breaks, or is wet. Your splint begins to smell bad. Your splint is cutting into your skin. Home care: Keep the injured area above the level of your heart while laying or sitting down. This will help decrease the swelling and the pain. Keep the splint dry. Do not put objects down or inside the splint. If there is an elastic bandage (Jimbo?? wrap) holding the splint on this may be loosened slightly to relieve pressure or pain. If pain continues return to the Emergency Department right away. Do not remove your splint by yourself unless told to by your provider. Follow-up: Sometimes the splint put on in the Emergency Department needs to be changed once the swelling has gone down and a more permanent cast needs to be placed. This is usually done by a bone specialist provider (Orthopedist). Follow the instructions given to you by your provider today. If you were given a prescription for medicine here today, be sure to read all of the information (including the package insert) that comes with your prescription. This will include important information about the medicine, its side effects, and any warnings that you need to know about. The pharmacist who fills the prescription can provide more information and answer questions you may have about the medicine. If you have questions or concerns that the pharmacist cannot address, please call or return to the Emergency Department. Remember that you can always come back to the Emergency Department if you are not able to see your regular provider in the amount of time listed above, if you get any new symptoms, or if there is anything that worries you. Opioid Medication Information You have been given a prescription for an opioid (narcotic) pain medicine and/or have received a pain medicine while here in the Emergency Department. These medicines can make you drowsy or impaired. You must not drive, operate dangerous equipment, or engage in any other dangerous activities while taking these medications. If you drive while taking these medications, you could be arrested for drivingunder the influence (DUI). Do not drink any alcohol while you are taking these medications. Opioid pain medications can cause addiction. If you have a history of chemical dependency of any type, you are at a higher risk of becoming addicted to pain medications. Only take these prescribed medications to treat your pain when all other options have been tried. Take it for as short a time and asfew doses as possible. Store your pain pills in a secure place, as they are frequently stolen and provide a dangerous opportunity for children or visitors in your house to start abusing these powerful medications. We will not replace any lost or stolen medicine. If you do not finish your medication, it is a good idea to get rid of it but please do not flush it down the toilet. Please dispose of the remaining medication at a local pharmacy or law enforcement facility. The [place] [employer] has additional information on medication disposal: http s://www.reexaminer.[facility].la.us/living-green/hmgzkevp-ncuxdqid-xrytonmcdas. Many prescription pain medications contain Tylenol?? (acetaminophen), including Vicodin??, Tylenol #3??, Corona??, Lortab??, and Percocet??. You should not take any extra pills of Tylenol?? if you are using these prescription medications or you can get very sick. Do not ever take more than 3000 mg of acetaminophen in any 24 hour period. All opioids tend to cause constipation. Drink plenty of water and eat foods that have a lot of fiber, such as fruits, vegetables, prune juice, apple juice and high fiber cereal. Take a laxative if you don???t move your bowels at least every other day. Miralax??, Milk of Magnesia, Colace??, or Senna?? can be used to keep you regular. Discharge Instructions Procedural Sedation During your visit today you had Procedural Sedation which is the process used to give you medications in order to make you comfortable or relaxed while a painful or difficult procedure is performed. This might have been a wound repair, fracture reduction (???setting a broken bone?? ), relocation of a dislocated joint, or other procedure. The medications used for Procedural Sedation are generally very short-acting so you are being discharged at a time when it is most likely that the medications have completely left your body. It is possible that the medication could cause some persistent symptoms like nausea, drowsiness, dizziness, clumsiness/poor balance, or poor judgment. As a result, please do not drive, operate machinery/tools, ordo anything else that requires judgment or coordination for the rest of the day. This could include climbing ladders or other heights, swimming/bathing, exercising, bicycling, or other similar activities. If you are feeling back to normal, you may resume normal activities the following day. Generally, every Emergency Department visit should have a follow-up clinic visit with either a primary or a specialty clinic/provider. Please follow-up as instructed by your emergency provider today. Return to the Emergency Department right away if: You have difficulty breathing. Your friends or family feel that you are too sleepy/sedated. You have repeated vomiting. Home care: Do not drink alcohol or take sedating (sleeping) medications. Take pain medications only as instructed by your provider. Begin with a light diet (like clear liquids) and add more foods as your stomach tolerates. If you have vomiting, return to clear liquids. Follow-up: Follow-up was recommended based on the condition that you received Procedural Sedation for; follow-up according to the instructions you received from your provider today. If you were given a prescription for medicine here today, be sure to read all of the information (including the package insert) that comes with your prescription. This will include important information about the medicine, its side effects, and any warnings that you need to know about. The pharmacist who fills the prescription can provide more information and answer questions you may have about the medicine. If you have questions or concerns that the pharmacist cannot address, please call or return to the Emergency Department. Remember that you can always come back to the Emergency Department if you are not able to see your regular provider in the amount of time listed above, if you get any new symptoms, or if there is anything that worries you. SUPPORT SERVICES AttachmentsThe following attachments cannot be sent through Care Everywhere. Elbow Dislocation (Taiwanese)Elbow Fracture (Taiwanese)documented in this encounter Medications at Time of Discharge [...] or fever documented as of this encounter ED Notes Yvette Shaw - 07/19/2019 12:35 PM CST Pt ambulated to restroom. Steady on feet. SUPPORT SERVICES Ellen Regalado - 07/19/2019 10:50 AM CST Bed: ED32 Expected date: 07/19/19 Expected time: Means of arrival: Comments: RM19 Trell Alba RN - 07/19/2019 8:21 AM CST Pt arrives with L arm pain after fall this morning. Pt slipped on ice, fell forward down 3 steps andlanded on L arm. Pain in forearm and elbow, no obvious deformity. Pt placed in sling in triage for comfort. CMS intact. SUPPORT SERVICES Rebel Brantley MD - 07/19/2019 8:07 AM CSTAssociated Order(s): -Fracture History Chief Complaint: Fall and Arm Injury The history is provided by the patient. Juliette Gaming is a right-handed, 29 year old female who presents for evaluation of a left arm injury. This morning, the patient slipped on ice, fell down three stairs, and landed on her left arm. Shedid not hit her head. Since the fall, pain has been persistent in the left elbow. There is no pain in the humerus, forearm, chest, or abdomen but there is soreness in the shoulder and a scrape on the knee. She also denies any numbness. She has not eaten since yesterday. The patient also reports a history of nausea with narcotic pain medication. Allergies: No known drug allergies. Medications: The patient is currently on no regular medications. Past Medical History: The patient denies any significant past medical history. Past Surgical History: Endoscopy Dental extractions. Family History: No past pertinent family history. Social History: Marital Status: Single [1] Presents to the ED with fiance. Negative for tobacco use. Review of Systems Musculoskeletal: Left elbow pain Neurological: Negative for numbness. All other systems reviewed and are negative. Physical Exam Patient Vitals for the past 24 hrs: BP Temp Temp src Pulse Heart Rate Resp SpO2 Weight 07/19/19 1330 (!) 162/92 -- -- 97 -- -- 99 % -- 07/19/19 1315 (!) 162/87 -- -- -- -- -- -- -- 07/19/19 1230 (!) 156/84 -- -- 89 87 18 98 % -- 07/19/19 1206 -- -- -- -- 94 20 95 % -- 07/19/19 1205 -- -- -- -- -- 20 95 % -- 07/19/19 1205 (!) 151/89 -- -- 92 -- -- -- -- 07/19/19 1201 -- -- -- -- -- 20 97 % -- 07/19/19 1200 (!) 146/77 -- -- -- 100 22 95 % -- 07/19/19 1156 -- -- -- -- -- 18 97 % -- 07/19/19 1155 (!) 143/72 -- -- 86 83 -- 100 % -- 07/19/19 1150 (!) 143/65 -- -- 96 91 17 99 % -- 07/19/19 1149 -- -- -- -- -- 18 99 % -- 07/19/19 1145 139/62 -- -- 99 98 -- 99 % -- 07/19/19 1142 132/74 -- -- 97 98 25 99 % -- 07/19/19 1139 129/62 -- -- 100 98 25 96 % -- 07/19/19 1138 -- -- -- -- -- 16 -- -- 07/19/19 1138 -- -- -- -- 98 23 100 % -- 07/19/19 1136 (!) 144/80 -- -- 93 -- -- 93 % -- 07/19/19 1133 (!) 153/81 -- -- -- 100 16 94 % -- 07/19/19 1133 (!) 153/81 -- -- 100 105 15 100 % -- 07/19/19 1130 (!) 151/90 -- -- 99 85 24 -- -- 07/19/19 1122 -- -- -- -- -- -- 96 % -- 07/19/19 1119 (!) 154/76 -- -- -- 90 22 -- -- 07/19/19 1105 -- -- -- -- 85 18 -- -- 07/19/19 1103 (!) 149/76 -- -- 85 -- -- 100 % -- 07/19/19 1031 -- -- -- -- -- -- -- 87.2 kg (192 lb 3.2 oz) 07/19/19 0822 (!) 130/103 97.5 ??F (36.4 ??C) Temporal -- 91 18 100 % -- Physical Exam General: Resting comfortably on the gurney Head: The scalp, face, and head appear normal Eyes: The pupils are normal Conjunctivae and sclera appear normal ENT: The nose is normal Ears/pinnae are normal Neck: Normal range of motion CV: RRR Resp: Clear to ascultation bilaterally. MS: Left Elbow: The humerus is non-tender The olecranon is tender The lateral supracondylar regions is tender There is no obvious clinical effusion There is pain with Pronation and Supination There is pain with Flexion and Extension The radial head and neck are non-tender The proximal ulnar is non-tender and there is no step off Distal Hand Exam: The finger flexors (FDS/FDP) are intact The finger extensors are intact The thumb exam is normal, including: Adduction, abduction, flexion, extension, opposition There are no sensory deficits Median, Ulnar, and Radial nerve function is normal Radial artery pulsations are normal Capillary refill is normal Skin: No rash or lesions noted. Neuro: Speech is normal and fluent Psych: Awake. Alert. Normal affect. Appropriate interactions Emergency Department Course Imaging: Radiographic findings were communicated with the patient who voiced understanding of the findings. XR Elbow, 2 views, Left: There is a transverse fracture of the olecranon approximately 3 cm from its proximal end. There is a few millimeter of widening of the fracture line. There is also a small nondisplaced fracture along the radial aspect of the radial head involving the articular surface. A just over 1 cm bone fragment is seen adjacent to the lateral humeral condyle also representing a fracture. There is a large joint effusion. No other abnormality is noted, as per radiology. CT Elbow Left w/o IV contrast: Reduced left elbow dislocation with the following periarticular fractures: 1. Olecranon base nondisplaced fracture. 2. Coronoid process fracture. 3. Lateral epicondylar base fracture, minimally displaced, likely including the lateral collateral ligament attachment. Radiocapitellar alignment is grossly normal. 4. Radial head lateral margin minimally displaced fracture, as per radiology. [facility] -Fracture Date/Time: 07/19/2019 10:14 AM Performed by: Rebel Brantley MD Authorized by: Rebel Brantley MD ED EVALUATION: Assessment Time: 07/19/2019 10:14 AM I have performed an Emergency Department Evaluation including taking a history and physical examination, this evaluation will be documented in the electronic medical record for this ED encounter. Provisional Diagnosis: Left olecranon fracture and dislocation ASA Class: Class 1- healthy patient NPO Status: yes UNIVERSAL PROTOCOL Site Marked: NA Prior Images Obtained and Reviewed: Yes Required items: Required blood products, implants, devices and special equipment available Patient identity confirmed: Verbally with patient, arm band, provided demographic data and hospital-assigned identification number Patient was reevaluated immediately before administering moderate or deep sedation or anesthesia Confirmation Checklist: Patient's identity using two indicators, relevant allergies, procedure was appropriate and matched the consent or emergent situation and correct equipment/implants were available Time out: Immediately prior to the procedure a time out was called [place] Protocol: the [employer] [place] Protocol was followed Preparation: Patient was prepped and draped in usual sterile fashion INJURY Injury location: Elbow Elbow injury location: L elbow PRE PROCEDURE ASSESSMENT Neurological function: diminished Distal perfusion: normal Range of motion: reduced SEDATION Patient Sedated: Yes Sedation: Propofol Vital signs: Vital signs monitored during sedation ANESTHESIA (see MAR for exact dosages) Anesthesia method: None PROCEDURE DETAILS: Manipulation performed: yes Skeletal traction used: yes Reduction successful: yes X-ray confirmed reduction: yes Immobilization: Splint Splint type: Long arm Supplies used: Ortho-Glass POST PROCEDURE ASSESSMENT Neurological function: normal Distal perfusion: normal Range of motion: unchanged PROCEDURE Patient Tolerance: Patient tolerated the procedure well with no immediate complications Describe Procedure: Patient positioned in supine position. Procedural anesthesia was utilized, see above. The arm was grasped with the elbow maintained at 90 degrees. Gentle longitudinal traction was applied and the elbow was reduced back into the glenoid fossa. The neurovascular exam was normal before and after reduction attempt. The patient tolerated the procedure well, there were no complications. Length of time physician/provider present for 1:1 monitoring during sedation: 10 Long arm Splint Placement I placed a long arm orthoglass splint to the patient's left upper extremity after the above reduction. Afterwards, I checked and adjusted the fit to ensure proper positioning. Patient was more comfortable with splint in place. Sensation and circulation are intact after splint placement. Interventions: 0856 Ibuprofen, 800 mg, PO 1124 Zofran, 4 mg, IV injection 1134 Propofol, 90 mg, IV 1137 Propofol, 30 mg, IV 1300 NS 1L IV 1340 Percocet, 1 tablet, PO Emergency Department Course: Nursing notes and vitals reviewed. 0907: I performed an exam of the patient as documented above. The patient was sent for an elbow x-ray while in the emergency department, results above. 0944: I consulted with HECTOR Bone from [facility] orthopedics, regarding the patient's history and presentation here in the emergency department. 0946: I rechecked the patient and discussed the results of her workup thus far. 1010: I spoke with Jeana from ortho again regarding the plan for reduction. She recommends a CT afterwards. 1126: I performed the elbow reduction with the C-arm x-ray, as described in the above procedure note. This was successful. 1151: I updated the ortho team after the successful reduction. The patient was sent for an elbow CT while in the emergency department, results above. 1330: I rechecked the patient and discussed discharge instructions. Findings and plan explained to the Patient. Patient discharged home with instructions regarding supportive care, medications, and reasons to return. The importance of close follow-up was reviewed. The patient was prescribed ibuprofen, Percocet, and Zofran. I personally reviewed the imaging results with the Patient and answered all related questions prior to discharge. Impression & Plan Medical Decision Making: Patient is a 29-year-old female who presents after a fall with injury to her left elbow. She is right-hand dominant. Patient's elbow x-ray does show a transverse fracture of the olecranon. There is also a small nondisplaced fracture along the radial aspect of the radial head involving the articular berna face. There is a significant large joint effusion I suspect due to the intra- articular nature of theradial head fracture. There is also a 1 cm bone fragment seen adjacent to the lateral humeral condyle likely representing a fracture of the humerus. Ultimately, there appears to be a dislocation of that left elbow as well. I discussed the case with [facility] orthopedic Jeana Emery PA-C on behalfof Dr. Vanegas with hand orthopedics. We elected to move forward with a closed reduction and procedural sedation. Please see my notes. Successful closed reduction of the dislocated fractured left elbow. Patient placed in a long-arm splint per procedure note. Patient sent for CT imaging of the left elbow for preoperative planning. Likely follow-up in clinic tomorrow with Dr. Vanegas and likely surgeryas early as Wednesday. Will be sent home with pain medication and splint precautions. Patient was able to tolerate oral intake well prior to discharge. Discharged home in care of . Diagnosis: ICD-10-CM 1. Closed fracture of left elbow, initial encounter S42.402A 2. Closed dislocation of left elbow, initial encounter S53.105A 3. Fall, initial encounter W19.XXXA 4. Closed displaced fracture of head of left radius, initial encounter S52.122A 5. Displaced fracture of lateral condyle of left humerus, initial encounter for closed fracture S42.452A Disposition: discharged to home Discharge Medications: Discharge Medication List as of 07/19/2019 1:55 PM START taking these medications Details ibuprofen (ADVIL/MOTRIN) 600 MG tablet Take 1 tablet (600 mg) by mouth every 6 hours as needed for moderate pain or fever, Disp-60 tablet, R-0, Local Print ondansetron (ZOFRAN ODT) 4 MG ODT tab Take 1 tablet (4 mg) by mouth every 8 hours as needed for nausea, Disp-10 tablet, R-0, Local Print oxyCODONE-acetaminophen (PERCOCET) 5-325 MG tablet Take 1-2 tablets by mouth every 4 hours as neededfor pain, Disp-12 tablet, R-0, Local Print Scribe Disclosure: I, Valerie Brito, am serving as a scribe on 07/19/2019 at 9:38 AM to personally document services performed by Rebel Brantley MD based on my observations and the provider's statements to me. 07/19/2019 [facility] EMERGENCY DEPARTMENT Rebel Brantley MD 07/19/197 SUPPORT SERVICES documented in this encounter Plan of Treatment Not on filedocumented as of this encounter Procedures Procedure Name Priority Date/Time Associated Comments Diagnosis CT ELBOW LEFT W/O STAT 07/19/2019 1:32 PM Resu lts for this CONTRAST RN SUPPORT SERVICES procedure are i n the results section. XR SURGERY JANIS STAT 07/19/2019 11:47 AM Resul ts for this FLUORO LESS THAN 5 RN SUPPORT SERVICES procedure are in MIN W STILLS the results section. XR ELBOW LT 2 VW STAT 07/19/2019 9:34 AM Resul ts for this RN SUPPORT SERVICES procedure are i n the results section. ED ORTHOPEDIC INJURY Routine 07/19/2019 8:07 AM R esults for this TREATMENT - FRACTURE RN SUPPORT SERVICES procedu re are in the results section. documented in this encounter Results CT Elbow Left w/o Contrast (07/19/2019 1:32 PM RN SUPPORT SERVICES) Anatomical Region Laterality Modality Left Elbow, SUBRAD CT MSK, UMP CT MSK, RAD CT Computed Tomography Specimen (Source) Anatomical Location Collection Method / Collectio n Time Received Time / Laterality Volume Impressions 07/19/2019 2:54 PM RN SUPPORT SERVICES IMPRESSION: Reduced left elbow dislocation with the following periarticular fractures: 1. Olecranon base nondisplaced fracture. 2. Coronoid process fracture. 3. Lateral epicondylar base fracture, mi nimally displaced, likely including the lateral collateral ligamen t attachment. Radiocapitellar alignment is grossly normal. 4. Radial head lateral margin minimally displaced fracture. BLAYNE SANCHEZ MD Narrative 07/19/2019 2:[address] ELBOW LEFT WITHOUT CONTRAST July 19, 2019 1:32 PM HISTORY: Elbow trauma, fracture known or suspected, x-ray insufficient. Left elbow fracture/disloc ation, now reduced. Preoperative planning. COMPARISON: 07/19/2019 radiographs demon strating fracture/dislocation at the left elbow. TECHNIQUE: Radiation dose for this scan was reduced using automated exposure control, adjustment of the mA a nd/or kV according to patient size, or iterative reconstruction techni que. FINDINGS: Since the prior radiographs, t he elbow dislocation has been reduced. Multiple fractures are noted ab out the elbow. There is a transverse fracture at the base of the o lecranon process, minimally displaced. There is a fracture of the co racoid process, slightly distally displaced. There is also a frac ture at the base of the lateral malleolus likely including the l ateral collateral ligament attachment.There is also a minimally dis placed fracture along the lateral margin of the radial head. Howev er, radiocapitellar alignment appears to be grossly normal. Procedure Note Blayne Sanchez MD - 07/19/2019Formatt ing of this note might be different from the original. CT ELBOW LEFT WITHOUT CONTRAST July 19, 2019 1:32 PM HISTORY: Elbow trauma, fracture known or suspected, x-ray insufficient. Left elbow fracture/disloc ation, now reduced. Preoperative planning. COMPARISON: 07/19/2019 radiographs demon strating fracture/dislocation at the left elbow. TECHNIQUE: Radiation dose for this scan was reduced using automated exposure control, adjustment of the mA a nd/or kV according to patient size, or iterative reconstruction techni que. FINDINGS: Since the prior radiographs, t he elbow dislocation has been reduced. Multiple fractures are noted ab out the elbow. There is a transverse fracture at the base of the o lecranon process, minimally displaced. There is a fracture of the co racoid process, slightly distally displaced. There is also a frac ture at the base of the lateral malleolus likely including the l ateral collateral ligament attachment.There is also a minimally dis placed fracture along the lateral margin of the radial head. Howev er, radiocapitellar alignment appears to be grossly normal. IMPRESSION: Reduced left elbow dislocati on with the following periarticular fractures: 1. Olecranon base nondisplaced fracture. 2. Coronoid process fracture. 3. Lateral epicondylar base fracture, mi nimally displaced, likely including the lateral collateral ligamen t attachment. Radiocapitellar alignment is grossly normal. 4. Radial head lateral margin minimally displaced fracture. BLAYNE SANCHEZ MD Rebel Brantley MD IMG CT ORDERABLES XR Surgery JANIS L/T 5 Min Fluoro w Stills (07/19/2019 11:47 AM RN SUPPORT SERVICES) Anatomical Region Laterality Modality Abdomen/Pelvis Radio Fluoroscopy Specimen (Source) Anatomical Location Collection Method / Collectio n Time Received Time / Laterality Volume Impressions 07/19/2019 12:43 PM RN SUPPORT SERVICES IMPRESSION: Intraoperative fluoroscopic spot image of the elbow demonstrating multiple fractures. Refer to operative report for additional details. MEGHANN OTOOLE MD Narrative 07/19/2019 12:43 PM RN SUPPORT SERVICES SURGERY C-ARM FLUORO LESS THAN 5 MIN W STILLS July 19, 2019 11:47 AM HISTORY: Mini C-arm - left elbow. COMPARISON: X-ray 07/19/2019. Procedure Note Meghann Otoole MD - 07/19/2019F ormatting of this note might be different from the original. SURGERY C-ARM FLUORO LESS THAN 5 MIN W S TILLS July 19, 2019 11:47 AM HISTORY: Mini C-arm - left elbow. COMPARISON: X-ray 07/19/2019. IMPRESSION: Intraoperative fluoroscopic spot image of the elbow demonstrating multiple fractures. Refer to operative report for additional details. MEGHANN OTOOLE MD Rebel Brantley MD IMG DIAGNOSTIC IMAGING ORDER HOLLY Elbow XR, 2 views, left (07/19/2019 9:34 AM RN SUPPORT SERVICES) Anatomical Region Laterality Modality Elbow, Left Elbow Left Computed Radiography Specimen (Source) Anatomical Location Collection Method / Collectio n Time Received Time / Laterality Volume Impressions 07/19/2019 12:04 PM RN SUPPORT SERVICES IMPRESSION: There is a transverse fracture of the olecranon approximately 3 cm from its proximal end . There is a few millimeter of widening of the fracture line. There is also a small nondisplaced fracture along the radial aspect of the radial head involving the articular surface. A just over 1 cm bone fragment is seen adjacent to the lateral humeral condyle also represe nting a fracture. There is a large joint effusion. No other abnormali ty is noted. ZION JUAN MD Narrative 07/19/2019 12:04 PM RN SUPPORT SERVICES LEFT ELBOW TWO VIEWS ??07/19/2019 9:34 AM HISTORY: Pain, swelling, fall. COMPARISON: None. Procedure Note Zion Juan MD - 07/19/2019Fo rmatting of this note might be different from the original. LEFT ELBOW TWO VIEWS 07/19/2019 9:34 AM HISTORY: Pain, swelling, fall. COMPARISON: None. IMPRESSION: There is a transverse fractu re of the olecranon approximately 3 cm from its proximal end . There is a few millimeter of widening of the fracture line. There is also a small nondisplaced fracture along the radial aspect of the radial head involving the articular surface. A just over 1 cm bone fragment is seen adjacent to the lateral humeral condyle also represe nting a fracture. There is a large joint effusion. No other abnormali ty is noted. ZION JUAN MD Rebel Brantley MD IMG DIAGNOSTIC IMAGING ORDER [place]LLY -Fracture (07/19/2019 8:07 AM RN SUPPORT SERVICES) Narrative Rebel Brantley MD - 07/19/2019 8:07 AM CS T Rebel Brantley MD ? 07/19/2019 ??9:36 PM [facility] -Fracture Date/Time: 07/19/2019 10:14 AM Performed by: Rebel Brantley MD Authorized by: Rebel Brantley MD ED EVALUATION: ?Assessment Time: 07/19/2019 10:14 AM ??I have performed an Emergency Departm ent Evaluation including taking a history and physical examination, this e valuation will be documented in the electronic medical record for this E D encounter. ??Provisional Diagnosis: Left olecranon fracture and dislocation ??ASA Class: Class 1- healthy patient ??NPO Status: yes UNIVERSAL PROTOCOL Site Marked: NA Prior Images Obtained and Reviewed: ??Ye s Required items: Required blood products, implants, devices and special equipment available ?? Patient identity confirmed: ??Verbally w ith patient, arm band, provided demographic data and hospital-assigned i dentification number Patient was reevaluated immediately befo re administering moderate or deep sedation or anesthesia Confirmation Checklist: ??Patient's iden tity using two indicators, relevant allergies, procedure was appropriate and matched the consent or emergent situation and correct equipment/implants were available Time out: Immediately prior to the proce dure a time out was called ?? [place] Protocol: the Joint Commission [place] Protocol was followed ?? Preparation: Patient was prepped and jose manuel ped in usual sterile fashion ?? INJURY ?Injury location: ??Elbow ??Elbow injury location: ??L elbow PRE PROCEDURE ASSESSMENT ?Neurological function: diminished ?Distal perfusion: normal ?Range of motion: reduced ?? SEDATION Patient Sedated: Yes ?? Sedation: ??Propofol Vital signs: Vital signs monitored durin g sedation ?? ANESTHESIA (see MAR for exact dosages) ?Anesthesia method: ??None PROCEDURE DETAILS: ??Manipulation performed: yes ?Skeletal traction used: yes ?Reduction successful: yes ?X-ray confirmed reduction: yes ?Immobilization: ??Splint ??Splint type: ??Long arm ??Supplies used: ??Ortho-Glass POST PROCEDURE ASSESSMENT ?Neurological function: normal ?Distal perfusion: normal ?Range of motion: unchanged ?? PROCEDURE Patient Tolerance: ??Patient tolerated t he procedure well with no immediate complications Describe Procedure: Patient positioned i n supine position. ??Procedural anesthesia was utilized, see above. ??Th e arm was grasped with the elbow maintained at 90 degrees. ??Gentle longi tudinal traction was applied and the elbow was reduced back into the becca oid fossa. ??The neurovascular exam was normal before and after reduction at tempt. ??The patient tolerated the procedure well, there were no complicati ons. ?? Length of time physician/provider presen t for 1:1 monitoring during sedation: 10 Rebel Brantley MD PROCEDURE/MINOR SURGICAL ORD ERABLES documented in this encounter Visit Diagnoses Diagnosis Closed fracture of left elbow, initial e ncounter Closed dislocation of left elbow, initia l encounter Fall, initial encounter Closed displaced fracture of head of lef t radius, initial encounter Displaced fracture of lateral condyle of left humerus, initial encounter for closed fracture documented in this encounter Administered Medications Inactive Administered Medications - up to 3 most recent administrations Medication Order MAR Action Action Date Dose Rate Site 0.9% sodium chloride BOLUS New Bag 07/19/2019 1:00 PM RN SUPPORT SERVICES 1,000 mLs 1000 mL/hr Intravenous, 1,000 mL, ONCE, at 1,000 mL/hr, Administer over 1 Hours, On Wed07/19/19 at 1015, For 1 dose ibuprofen (ADVIL/MOTRIN) tablet 800 mg Given 07/19/2019 8:56 AM RN SUPPORT SERVICES 800 mg 800 mg, Oral, ONCE, On Wed07/19/19 at 0848, For 1 dose naloxone (NARCAN) injection 0.1-0.4 mg 0.1-0.4 mg, Intravenous, EVERY 2 MIN PRN , opioid reversal, Starting on Wed07/19/19 at 1013, For respiratory rate LESS than or EQUAL to 8. Partial reversal dose: 0.1 mg titrated q 2 minutes for Analgesia Si de Effects Monitoring Sedation Level of 3 (frequently drowsy, arousable, drifts to sleep during conversation).Full reversal dose: 0.4 mg bolus for Analgesia Side Effects Monitori ng Sedation Level of 4 (somnolent, minimal or no response to st imulation). For ordered IV doses 0.1-2mg give IVP. Give each 0.4mg over 15 second s in emergency situations. For non-emergent situations further dilute in 9mL of NS to facilitate t itration of response. ondansetron (ZOFRAN) 2 MG/ML injection Given 07/19/2019 11:24 AM RN SUPPORT SERVICES 4 mg Starting on Wed07/19/19 at 1119, For 1 dose, MS. NAKUL Aguilar : cabinet override Irritant. For ordered IV doses 0.1-4 mg, give IV Push undiluted over 2-5 minutes. oxyCODONE-acetaminophen (PERCOCET) 5-325 MG Given 07/02 1:40 PM RN SUPPORT SERVICES 1 tablet per tablet 1 tablet 1 tablet, Oral, ONCE, On Wed07/19/19 at 1335, For 1 dose, Maximum acetaminophen dose from all sources= 75 mg/kg/day not to exceed 4 grams propofol (DIPRIVAN) 200 MG/20ML injectio n Given 07/19/2019 11:34 AM RN SUPPORT SERVICES 90 mg Starting on Wed07/19/19 at 1051, For 1 dose, Yosiprabhu, MS. MOTA : cabinet override propofol (DIPRIVAN) injection 10 mg/mL v ial Given 07/19/2019 11:37 AM RN SUPPORT SERVICES 30 mg 9 mg (rounded from 8.72 mg = 0.1 mg/kg ? 87.2 kg), Intravenous, EVERY 1 MIN PRN, sedation, Starting on Wed07/19/19 at 1014, IV push every 30-60 seconds to maintain sedation. Provider must be present. For non-intubated patients follow propofol sedation policy. sodium chloride 0.9% infusion at 125 mL/hr, Intravenous, CONTINUOUS, A dminister after the bolus., Starting on Wed07/19/19 at 1115, Until Wed07/19/19 at 1614 documented in this encounter Active and Recently Administered Medications Times are shown in RN SUPPORT SERVICES. Scheduled Medication Order 07/17/2019 07/18/2019 07/19/2019 0.9% sodium chloride BOLUS (COMPLETED) 1300 (New Bag - Provider: Joselin Love RN)1340 (Stopped - Provider: Joselin Love RN) Intravenous, 1,000 mL, ONCE, at 1,000 mL /hr, Administer over 1 Hours, Wed07/19/19 at 1015, For 1 dose ibuprofen (ADVIL/MOTRIN) tablet 800 mg (COMPLETED) 0856 (Given - Provider: Kiley Lindquist RN) 800 mg, Oral, ONCE, Wed07/19/19 at 0848, For 1 dose oxyCODONE-acetaminophen (PERCOCET) 5-325 MG per tablet 1 tablet (COMPLETED) 1340 (Given - Provider: Joselin Love RN) 1 tablet, Oral, ONCE, Wed07/19/19 at 13 35, For 1 dose, Maximum acetaminophen dose from all sources= 75 mg/kg/day not to exceed 4 grams propofol (DIPRIVAN) injection 10 mg/mL vial 1015 (Canceled Entry - Provider: Orders Generic Provider - Comment: Automatically canceled at discontinue of medication order) 87 mg (rounded from 87.2 mg = 1 mg/kg ? 87.2 kg), Intravenous, ONCE, Wed07/19/19 at 1015, For 1 dose, Split dose into 20-40 mg increments and give IV push every 10 seconds until induction. Provider mu st be present. For non-intubated patients follow propofol sedati on policy. Continuous Medication Order 07/17/2019 07/18/2019 07/19/2019 sodium chloride 0.9% infusion 11 15 (Canceled Entry - Provider: Orders Generic Provider - Comment: Automatically canceled at discontinue of medication order) at 125 mL/hr, Intravenous, CONTINUOUS, A dminister after the bolus., Starting Wed07/19/19 at 1115, Until Wed07/19/19 at 1614 PRN Medication Order 07/17/2019 07/18/2019 07/19/2019 naloxone (NARCAN) injection 0.1-0.4 mg 0.1-0.4 mg, Intravenous, EVERY 2 MIN PRN , opioid reversal, Starting Wed07/19/19 at 1013, For respiratory rate LESS than or EQUAL to 8. Partial reversal dose: 0.1 mg titrated q 2 minutes for Analgesia S tania Effects Monitoring Sedation Level of 3 (frequently drowsy, arousable, drifts to sleep during conversation).Full reversal dose: 0.4 mg bolus for Analgesia Side Effects Monitoring Sedation Level of 4 (somnolent, minimal or no response to st imulation). For ordered IV doses 0.1-2mg give IVP. Give each 0.4mg over 15 seconds in emergency situations. For non- emergent situations further dilute in 9mL of NS to facilitate titration of response. propofol (DIPRIVAN) injection 10 mg/mL vial 1137 (Given - Provider: Lucie Crystal RN) 9 mg (rounded from 8.72 mg = 0.1 mg/kg ? 87.2 kg), Intravenous, EVERY 1 MIN PRN, Starting Wed07/19/19 at 1014, sedation, IV push every 30-60 seconds to maintain sedation. Provider must be present. For non-intubated patients follow propofol sedation policy. No Frequency Medication Order 07/17/2019 07/18/2019 07/19/2019 ondansetron (ZOFRAN) 2 MG/ML injection (COMPLETED) 1124 (Given - Provider: Lucie Crystal, MARIIA) Starting Wed07/19/19 at 1119, For 1 dos e, Lauren Jesus MOTA : cabinet override Irritant. For ordered IV doses 0.1-4 mg, give IV Push undiluted over 2-5 minutes. propofol (DIPRIVAN) 200 MG/20ML injection (COMPLETED) 1134 (Given - Provider: Lucie Crystal RN) Starting Wed07/19/19 at 1051, For 1 dose, MS. NAKUL Aguilar : cabin et override documented in this encounter Care Teams Chute Boss Relationship Specialty Start Date End Date Lazarus Galeas MD PCP - General 10/07/08 07/19/19 [address] [facility] [address] documented as of this encounter
--- OUTSIDE RECORDS SUMMARY | 2022-03-10 15:56 | XMS_ITS | Encounter Summary ---
:1990 Author Organization [facility] Address [address], [place] [address] Care Team Providers Name Role Phone [facility], Clinician Primary Care Provider Unavailable Reason for Visit Reason Comments Refill famotidine (PEPCID) 20 MG ta blet [Pharmacy Med Name: FAMOTIDINE 20MG TABLETS] Encounter Details Date Type Department Care Team Description 01/11/2020 Refill [facility] [address], Refill (famotidine [facility] CONGRESSIONAL ASSISTANT, HUMANITIES INSTRUCTOR (PEPCID) 20 MG tablet [address] [Pharmacy Med Name: [place] [address] [place], [place] FAMOTIDINE 20MG [phone] [id number] TABLETS]) [phone] (Wo rk) Social History Tobacco Use Types [...] documented as of this encounter Nursing Notes Nadia Garces RN - 01/11/2020 10:52 AM CDT Refilled per standing order protocol Nadia Garces RN 01/11/2020, 10:52 AM Interface, Out Granular Prov Query - 01/11/2020 3:30 AM CDT famotidine (PEPCID) 20 MG tablet [Pharmacy Med Name: FAMOTIDINE 20MG TABLETS] GERD / PUD - H2 Blockers & Carafate -> Refill x 12 months, qty: 180, refills: 3 (until due for an office visit) Last qualifying visit: 12/21/2019 (in [facility] with GINNA GANDHI) Next scheduled visit: None Last ordered by GINNA GANDHI: 12/21/2019 (21 days ago) QTY: 28, Refills: 0, Sig: take 1 tablet bymouth two times a day. (changed but equivalent) Powered by [employer], Reference: [id number], 01/11/2020 3:30:24 AM CDT, Pool: Oksana Chacko Care Team ([id number]) documented in this encounter Plan of Treatment Not on filedocumented as of this encounter Visit Diagnoses Not on filedocumented in this encounter Care Teams Uniform Maker Relationship Specialty Start Date End Date [facility], Clinician PCP - General 11/22/18 [address] [place] [address] documented as of this encounter
--- OUTSIDE RECORDS SUMMARY | 2022-03-10 15:56 | XMS_ITS | Encounter Summary ---
:1990 Author Organization [facility] Address [address], [place] [address] Care Team Providers Name Role Phone [facility], Clinician Primary Care Provider Unavailable Reason for Visit Reason Comments Refill Encounter Details Date Type Department Care Team Description 08/15/2019 Refill [facility] Patience Quiros MD Refill [address] [facility] [address] [place] [address] [place] [address] [phone] (Wo rk) Social History Tobacco Use Types [...] documented as of this encounter Nursing Notes Bethanie Trinh RN - 08/16/2019 10:20 AM CST Per Last eye exam 06-15-2018 No ophthalmoscopic evidence of ocular toxicity L SANDER Lee Ann Hodges LPN - 08/15/2019 12:16 PM CST Patient scheduled an appointment with Dr Dacosta 09-21-19 in 1V. She will schedule eye exam at [facility] this week.. L SANDER Bethanie Trinh, MARIIA - 08/15/2019 11:50 AM CST LV 05-26-2018 [facility] None Last eye exam 06-15-2018 Last office visit - to follow up in 1 year Nurse left message for patient to return call. Patient needs a [facility] and an eye exam L SANDER documented in this encounter Plan of Treatment Not on filedocumented as of this encounter Visit Diagnoses Diagnosis Undifferentiated connective tissue disea se (HRC) Unspecified diffuse connective tissue di sease High risk medication use Encounter for long-term (current) use of other medications documented in this encounter Care Teams Journal Box Inspector Relationship Specialty Start Date End Date [place] Manuel, Clinician PCP - General 11/22/[address] [address] documented as of this encounter
--- OUTSIDE RECORDS SUMMARY | 2022-03-10 15:56 | XMS_ITS | Encounter Summary ---
:1990 Author [facility] Address [address] [address] Care Team Providers Name Role Phone Needs Pcp, Assignment Primary Care Provider Reason for Visit Reason Comments Eye Exam Consult/Transfer Care (Routine) - Closed Specialty Diagnoses / Procedures Referred By Contact Refer red To Contact Diagnoses Undifferentiated connective tissue disease (HRC) High risk medication use Patience Jiang MD [address] [place] [address] Referral ID Status Reason Start Date Expiration Date Visits Requ ested Visits Authorized [id number] Closed 05/26/2018 08/25/2019 1 1 Encounter Details Date Type Department Care Team Description 06/15/2018 Office Visit Deep Bailey, Encounter for eye exam due to high risk medication (Primary Dx); Ophthalmology OD Long-term use of Plaquenil; [address] [address] [address] [facility]; [place] [address] [place], [place] Ptosis, congenital, bilatera l [phone] (Wo rk) Social History Tobacco Use Types [...] documented as of this encounter Progress Notes Deep Cisneros, OD - 06/15/2018 8:10 AM CST REVIEW: ?? Juliette presents for an eye exam to monitor for any adverse ocular changes associated with daily use of a high risk medication, Hydroxychloroquine (Plaquenil). Personally reviewed HPI notes, medical history, medications, and allergies GENERAL MEDICAL OBSERVATION: ?? Patient is alert, cooperative, pleasant, and appears basically healthy ASSESSMENT: No ophthalmoscopic evidence of ocular toxicity such as an abnormal appearance to the macular retinalpigmented epithelium associated with Hydroxychloroquine ?? Brief history: ?? Started March 2018, 400 mg/day for 3 years then 200 mg/day for the last year, cumulative dose: 515 grams ?? Last HVF and OCT: May 2017 - all normal findings ?? Essentially emmetropia In both eyes ?? 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 Discussed findings ?? Self monitor for changes as well as annual eye exams for look for asymptomatic changes ?? Order for both eyes: ?? HVF 10-2 ?? OCT: ?? Macula Cube [id number] ?? HD 1 line 100x ?? HD 21 line ?? Spectacle prescription not necessary, not recommended, and not writtent to patient ?? 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
--- OUTSIDE RECORDS SUMMARY | 2022-03-10 15:56 | XMS_ITS | Encounter Summary ---
:1990 Author Organization [facility] Address [address] [place] [address] Care Team Providers Name Role Phone [facility], Clinician Primary Care Provider Unavailable Reason for Visit Reason Comments SKIN LESION Back changing mole Encounter Details Date Type Department Care Team Description 09/25/2021 Office Visit [facility] [address], Jeb ltiple benign melanocytic nevi of upper and lower extremities and trunk (Primary Dx); Dermatology Lentigines; [address] orrheic keratosis; [address] [place] [address] [phone] (Wo rk) Social History Tobacco Use Types [...] encounter Progress Notes Ana Elder MD - 09/25/2021 8:30 AM CST Chief Complaint Patient presents with ??? SKIN LESION Back changing mole History of Present Illness: Juliette Gaming is a 31 y.o. female here for evaluation of a spot of concern on the left back. Last exam [address] Watkins. She has noticed that this mole is more irritated. She also has a long-standing nevus posterior to her left ear, no history of change. She requests askin cancer screening today. She is 8 weeks . Past Medical History: No history of skin cancer. Medications: The patient has a current medication list which includes the following prescription(s): famotidine, fexofenadine, fluticasone propionate, hydroxychloroquine, and omeprazole. Allergies: The patient has No Known Allergies. Physical Exam: General: Well appearing female in no acute distress, alert and oriented x 3, normal affect. Skin: Full exam today. notable findings include: - Brown, well demarcated, even-colored macules in photodistributed areas. - Bright red 1-3 mm papules are noted. - Scattered uniformly colored, bland, symmetrical brown macules and papules noted. No features specific for melanoma on exam today. - Brown, stuck-on appearing papules are visualized on the trunk. Left upper back with a exophytic 1 cm papule. Left postauricular region with uniform brown plaque, no heterogeneity noted. Assessment and Plan: 1. Sun damaged skin/chronic photodamage and benign skin lesions (nevi, angiomas, lentigines, seborrheic keratoses). Reviewed importance of OTC sunscreen, reviewed warning signs of skin cancer, return to clinic if anyconcerns. Reviewed lesions examined today appear benign. 2. Congenital nevus, left postauricular region. Asked her to monitor this for growth or change. 3. Symptomatic nevus, left upper back. Recommended shave removal with plain lidocaine. Will be rescheduled for her 2nd trimester of . Recommended skin cancer screening every 2-3 years. 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
--- OUTSIDE RECORDS SUMMARY | 2022-03-10 15:56 | XMS_ITS | Encounter Summary ---
:1990 Author Organization [facility] Address [address] [address] Care Team Providers Name Role Phone [facility], Clinician Primary Care Provider Unavailable Reason for Visit Reason Onset Date Comments Refill 08/12/2020 omeprazole (PRILOSEC ) 20 MG capsule Encounter Details Date Type Department Care Team Description 08/12/2020 Refill [facility] [address], Refill (omeprazole [facility] PA-Elisa (PRILOSEC) [address] capsule) [place] [address] [place], [place] [id number] (Wo rk) Social History Tobacco Use Types [...] documented as of this encounter Nursing Notes Interface, Out Surescripts Prov Query - 08/12/2020 9:25 AM CST omeprazole (PRILOSEC) 20 MG capsule GERD / PUD - PPI's -> Mg Level is overdue (performed 28 months ago, required every 12 months) Last qualifying visit: 12/21/2019 (in [facility] with PIPO GUZMÁN) Next scheduled visit: None Last ordered by SHANNON MARTINEZ J: 03/26/2020 (139 days ago) QTY: 90, Refills: 0, Sig: take 1 capsule by mouth daily before breakfast. (unchanged) Mg Level: 2.5 mg/dL on 05/03/2018 Powered by [employer], Reference: [id number], 08/12/2020 9:25:22 AM EMAIL ENGINEER, Pool: Juan Arevalo Care Team ([id number]) L ENGINEER Interface, Out Surescripts Prov Query - 08/12/2020 9:25 AM CST The following lab order(s) may be associated with the Result Note below: MAGNESIUM Notes Recorded by Chrissie Acharya LPN on 05/03/2018 at 2:07 PM Results letter sent. Chrissie Acharya LPN 05/03/2018, 2:07 PM ------ Notes Recorded by Kaitlyn Muhammad, BREAST TRIMMER, FLEXOGRAPHIC PRESS HELPER on 05/03/2018 at 1:16 PM Juliette, Your electrolyte and magnesium levels are normal. Your vitamin D level is quite low which could be contributing to joint and muscle pain. Please take vitamin D and calcium supplements as we discussed during your visit. Please call for further questions or concerns. Kaitlyn Muhammad APRN, FLEXOGRAPHIC PRESS HELPER 05/03/2018, 1:16 PM L ENGINEER documented in this encounter Plan of Treatment Not on filedocumented as of this encounter Visit Diagnoses Not on filedocumented in this encounter Care Teams Geotechnician Relationship Specialty Start Date End Date Victor Manuel Clinician PCP - General 11/22/[address] [place] [address] [place] [address] documented as of this encounter
--- OUTSIDE RECORDS SUMMARY | 2022-03-10 15:56 | XMS_ITS | Encounter Summary ---
:1990 Author Organization [facility] Address [address] [place] [address] Care Team Providers Name Role Phone Lazarus Galeas MD Primary Care Provider [phone] Encounter Details Date Type Department Care Team Description 07/19/2019 Travel Social History Tobacco Use Types Packs/Day Years Used Date Never Smoker Sex Assigned at Date Recorded Not on file documented as of this encounter Plan of Treatment Not on filedocumented as of this encounter Visit Diagnoses Not on filedocumented in this encounter Care Teams Funeral Pre Arrangement Counselor Relationship Specialty Start Date End Date Lazarus Galeas MD PCP - General 10/07/08 07/19/19 [address] [facility] [place] [address] documented as of this encounter
--- OUTSIDE RECORDS SUMMARY | 2022-03-10 15:56 | XMS_ITS | Encounter Summary ---
:1990 Author Organization [facility] Address [address], [place] [address] Care Team Providers Name Role Phone [facility], Clinician Primary Care Provider Unavailable Reason for Visit Reason Comments MONITORING HIGH-RISK MEDICATION Encounter Details Date Type Department Care Team Description 03/19/2020 Office Visit Rakesh Goldberg, Encounter for eye exam due to high risk medication (Primary Dx); Ophthalmology OD Ptosis, congenital, bilateral [address] [facility] [address] [place] [address] [address] [phone] [place] [address] (Wo rk) Social History Tobacco Use Types [...] documented as of this encounter Progress Notes Rakesh Purdy, OD - 03/19/2020 12:15 PM CDT General medical assessment: Patient is alert. Basically healthy. Assessment: ICD-10-CM 1. Encounter for eye exam due to high risk medication Z79.899 2. 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 Discussed findings with patient. 2. No Rx needed. 3. Return to clinic in 1 year(s) or as needed. HVF 10-2 and OCT tests next year. 1) Plaquenil use: No evidence of toxicity. 200 mg/day Started Started March 2015, 400 mg/day for 3 years then 200 mg/day for the past year Cumulative Dose: ~675 No kidney disease. No liver disease HVF - last 05/2017 sd-OCT - 05/2017 Fundus Autofluorescence - none She understands the low risk of retinal toxicity and the importance of continued monitoring. documented in this encounter Plan of Treatment Not on filedocumented as of this encounter Visit Diagnoses Diagnosis Encounter for eye exam due to high risk medication - Primary Ptosis, congenital, bilateral Congenital ptosis of eyelid documented in this encounter Care Teams Collection Officer Relationship Specialty Start Date End Date Victor Manuel Clinician PCP - General 11/22/18 [address] [facility] [address] [place], [place] [address] documented as of this encounter
--- OUTSIDE RECORDS SUMMARY | 2022-03-10 15:56 | XMS_ITS | Encounter Summary ---
:[address] [facility] Address [address] [address] Care Team Providers Name Role Phone Needs Pcp, Assignment Primary Care Provider Reason for Referral Consult/Transfer Care (Routine) - Closed Specialty Diagnoses / Procedures Referred By Contact Refer red To Contact Diagnoses Undifferentiated connective tissue disease (HRC) High risk medication use Patience Jiang MD [address] [place] [address] Referral ID Status Reason Start Date Expiration Date Visits Requ ested Visits Authorized [id number] Closed 05/26/2018 08/25/2019 1 1 Scheduling Instructions Your provider has recommended an appoint ment with [facility]. You may call [phone] to schedule your appoi ntment. If you do not schedule an appointment within the next 1 to 3 business days, we will call you. Reason for Visit Reason Comments CONSULT Encounter Details Date Type Department Care Team Description 05/26/2018 Initial Consult Patience Plummer Undiffer entiated connective tissue disease (HRC) (Primary Dx); Rheumatology MD Tanja Needs flu shot; [address] [place] [address] [facility] High [place] [address] [phone] Social History Tobacco Use Types Packs/Day Years [...] Pulse 90 05/26/2018 8:32 AM CDT Temperature - - Respiratory Rate - - Oxygen Saturation - - Inhaled Oxygen Concentration - - Weight 90.3 kg (199 lb) 05/26/2018 8:32 AM CDT Height 160 cm (5' 3) 05/26/2018 8:32 AM CDT Body Mass Index 35.25 05/26/2018 8:32 AM CDT documented in this encounter Patient Instructions Patient InstructionsPatience Jiang MD - 05/26/2018 8:45 AM CDT Update your eye exam. documented in this encounter Progress Notes Patience Jiang MD - 05/26/2018 8:45 AM CDT Rheumatology New Patient/Consult Note Referral: PATIENT SELF REFERRAL, [place] [address] Chief Complaint Patient presents with ??? CONSULT Additional concerns: HPI: The patient is a 27 y.o. 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 She was initially seen by Dr. Winn in January 2014. She was noted to have an elevated ESR about 40 and a positive MELISSA at that time. Her symptoms involved polyarthralgias without synovitis. There is no oral/nasal/genital ulceration, pleurisy, Raynaud's or photosensitivity. She was placed on prednisone 10 mg daily for a trial with benefit. This was subsequently tapered to 5 mg daily and hydroxychloroquine was started in March 2014. She also underwent a GI workup for IBS type symptoms. By May 2016,hydroxychloroquine was reduced to 200 mg daily given overall improvements with the formulation. Of note, at the time of her initial consultation, additional serologies were obtained and were normal including antibodies to Villarreal, Jami-1, SSA, SSB, SCL 70, double-stranded DNA and CCP. She reports today for establishment of care following Dr. Winn's [facility]. She states that she has done well since her last visit with rheumatology roughly a year ago. She admits that she is overdue for her eye exam. She is planning on having this updated in the coming weeks. She has continued on hydroxychloroquine 20 mg daily. She is tolerating the medication and denies any known side effects. She remains with some residual stiffness rather than pain about her wrists and knees predominantly. Symptoms are present in the morning for several minutes. Denies any interval flares of joint pain norany persistent swollen joints. In the interval period, she denies any new oral/nasal/genital ulcerations, pleurisy, Raynaud's phenomenon or photosensitivity. She is interested in getting the flu shot today. Rates her pain at a 1/10 today. Denies any interval changes to her health her symptoms otherwise. She lives in [place] with her boyfriend and dog. They are saving up for their own house. She is doing night school through [employer]. Her goal is to become a marriage and family counselor. 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 She enjoys walking her dog with her boyfriend and herfree time. She will consume alcohol on social occasions but otherwise does not consume alcohol. Denies any ongoing tobacco or drug use. Her brother has vitiligo and her father and paternal grandmother have osteoarthritis. Her mother lives in [place]. Her father lives locally. She has 1 biologic brother and several step siblings. Surgical history includes wisdom teeth removal. Patient Active Problem List Diagnosis ??? Chronic rhinitis ??? Cough ??? Contraceptive surveillance ??? Insomnia ??? Abnormal TSH (HRC) ??? Familial hyperlipidemia (HRC) ??? Undifferentiated connective tissue disease (HRC) ??? Cervical cancer screening Past Medical History: Diagnosis Date ??? Depression (HRC) ??? Dry mouth ??? Gastric reflux ??? Hypercholesterolemia ??? Joint disorder ??? Joint pain saw rheum, on plaquenil ??? Major depressive disorder, single episode, moderate (HRC) 02/07/2010 situational Past Surgical History: Procedure Laterality Date ??? COLONOSCOPY 2016 ??? EXTRACT, WISDOM/SINGLE TOOTH ??? UPPER GI ENDOSCOPY 2017 gastritis Outpatient Encounter Prescriptions as of 05/26/2018 Medication Sig Dispense Refill ??? etonogestrel (NEXPLANON) 68 MG implant Inject 68 mg subcutaneously continuous. ??? fexofenadine (PATRICIA) 180 MG tablet Take 180 mg by mouth daily as needed for Other. ??? fluticasone (FLONASE) 50 MCG/ACT nasal solution APPLY OR INSTILL 1 SPRAY INTO BOTH NOSTRILS DAILY. 48 g 1 ??? hydroxychloroquine (PLAQUENIL) 200 MG tablet TAKE 1 TAB BY MOUTH TWO TIMES A DAY. 180 Tab 1 ??? omeprazole (PRILOSEC) 20 MG capsule Take 1 Capsule by mouth two times a day before meals. Take 30-60 minutes before breakfast and evening meal 180 Capsule 3 No facility-administered encounter medications on file as of 05/26/2018. No Known Allergies History Alcohol Use ??? 0.5 oz/week ??? 1 Standard drinks or equivalent per week Comment: soc History Smoking Status ??? Former Smoker Smokeless Tobacco ??? Never Used ROS: Comprehensive review of systems form filled out by the patient for today's visit was reviewed, sent to SDOC, and is as noted above and/or notable for: EXAM Blood pressure 122/47, pulse 90, height 5' 3 (1.6 m), weight 199 lb (90.3 kg). General: NAD Eyes: Externally clear Mouth: Moist mucus membranes, no ulcers Lymph: No cervical or groin adenopathy was noted Chest: CTA Heart: RRR, no M/R/G Abdomen: BS present, soft, non-tender, no palpable HSM Musculoskeletal: All 4 limbs were examined. The joint exam was negative for synovitis, deformity, tenderness, deformity with the exception of: 0 tender and 0 swollen joints. Complete musculoskeletal exam performed and without appreciable synovitis, tenderness to palpation or reduced range of motion. Neurologic: Sensation and strength grossly intact throughout Cutaneous: no rashes Psych: affect normal Pain score & Rapid 3 score: see flow sheet if these were completed. Lab: Lab Results Component Value Date/Time WBC 6.9 04/19/2017 0854 RBC 4.63 04/19/2017 0854 Hemoglobin 12.1 04/19/2017 0854 HCT 37.5 04/19/2017 0854 MCV 81.0 04/19/2017 0854 RDW 13.3 04/19/2017 0854 Platelets 311 04/19/2017 0854 Lab Results Component Value Date/Time AST (SGOT) 27 02/23/2014 1340 Lab Results Component Value Date/Time Creatinine 0.69 05/03/2018 0840 See additional labs in HPI above. Imaging: None relevant for review. Assessment/Plan: 1. Undifferentiated connective tissue disease manifest with arthralgias, elevated inflammatory markers and MELISSA positivity of 1:160, in remission on hydroxychloroquine 200 mg daily 2. High risk medication use 3. Anxiety 4. GERD, improved on omeprazole 5. GI ulceration discovered in September 2017 Rapid 3 of 1.3 At today's visit with Juliette, we discussed her findings on exam and history suggestive of remission with the current regimen. This argues for continuing hydroxychloroquine at the reduced dose of 200 mgdaily. She agrees with this approach. She was reminded that she is due for her eye exam and we will refer her to ophthalmology. She was provided their number to schedule at her convenience. Given her recent finding of GI ulceration in September 2017, she was advised to use Tylenol for joint pain when needed. She does so rarely. We discussed the option update her laboratory evaluations today. However, she is doing quite well, she preferred to consider repeating them at her next visit or earlier as needed. This is reasonable. Anew prescription for hydroxychloroquine will be provided today. We will plan to see her in another year, earlier as needed. Will administer the flu shot today for health maintenance. Contact information for Katt Andrea PA-C, was given as she is available in [place] on Mondays,depending on my clinic availability. Return to clinic in 1 year, earlier as needed. Total time 40 minutes with over 21 minutes spent in patient education and counseling. Thank you for involving me in the care of your patient. I will continue to follow. Please do not hesitate to contact my office with any questions. This note created with voice recognition software and may contain typographical errors. documented in this encounter Plan of Treatment Scheduled Referrals Name Type Priority Associated Diagnoses Order S chedule Ophthalmology Referral Routine Undifferentiated Ordered: Consult-Adult/Peds connective tissue dise ase 05/26/2018 ([facility]) High risk medication use documented as of this encounter Visit Diagnoses Diagnosis Undifferentiated connective tissue disea se ([facility]) - Primary Unspecified diffuse connective tissue di sease Needs flu shot Need for prophylactic vaccination and in oculation against influenza High risk medication use Encounter for long-term (current) use of other medications documented in this encounter Care Teams Central Supply Tech Relationship Specialty Start Date End Date Needs Pcp, Assignment PCP - General 05/26/18 11/21/18 [place] [address] documented as of this encounter
--- OUTSIDE RECORDS SUMMARY | 2022-03-10 15:56 | XMS_ITS | Encounter Summary ---
:1990 Author Organization [facility] Address [address], [place] [address] Care Team Providers Name Role Phone [facility], Clinician Primary Care Provider Unavailable Reason for Visit Reason Comments Refill Encounter Details Date Type Department Care Team Description 11/07/2019 Refill [facility] Patience Quiros MD Refill [address] [facility] [address] [place] [address] [place] [address] [phone] (Wo rk) Social History Tobacco Use Types [...] documented as of this encounter Nursing Notes Zo Morgan - 12/06/2019 2:38 PM CDT Patient scheduled for 12/11/19 Melly Moreno - 11/27/2019 4:47 PM CDT LM for pt to return call. Katt Andrea PA-C - 11/23/2019 3:48 PM CDT Please see EAO response from initial refill request on 11/07/2019. Please call patient with this information again. Thank you. Ilene So - 11/23/2019 3:45 PM CDT Received another fax from pharmacy requesting a response to the request for Hyroxychloroquine. Please advise pharmacy with approval or denial. Melly Moreno - 11/08/2019 3:25 PM CDT LM for pt to return call. Libra Carrillo PA-C - 11/07/2019 10:02 AM CDT This patient agreed to appointment and eye exam back in August and did not follow through. It wouldbe reasonable to wait until her visit with Dr. Dacosta for refill of this medication so they can discuss eye exams and need for regular follow-up. If he has openings, it would be reasonable also to reschedule her for a phone/video consult SOONER since she has not yet seen Dr. Dacosta. You may need to check with him first documented in this encounter Plan of Treatment Not on filedocumented as of this encounter Visit Diagnoses Diagnosis Undifferentiated connective tissue disea se (HRC) Unspecified diffuse connective tissue di sease High risk medication use Encounter for long-term (current) use of other medications documented in this encounter Care Teams Cotton Farmworker Relationship Specialty Start Date End Date [facility], Clinician PCP - General 11/22/18 [address] [address] documented as of this encounter
--- OUTSIDE RECORDS SUMMARY | 2022-03-10 15:57 | XMS_ITS | Encounter Summary ---
:1990 [facility] Address [address] [address] Care Team Providers Name Role Phone Unavailable Primary Care Provider Unavailable Reason for Visit Reason Comments Refill fluticasone (FLONASE) 50 MCG /ACT nasal solution [Pharmacy Med Name: FLUTICASONE PROP 50 MCG SPRA Y] Encounter Details Date Type Department Care Team Description 08/31/2016 [facility] Marvin Alvarez, Quiana ll (fluticasone Practice SOLID SURFACE FABRICATOR, DNP (FLONASE) 50 MCG/ACT [address] nasal solution [place], [place] [address] [place] [address] [Pharmacy Med Name: [phone] (Wo rk) FLUTICASONE PROP 50 MCG SPRAY]) Social History Tobacco Use Types Packs/Day Years Used Date Smoking Tobacco: Former Smokeless Tobacco: Never Comments: only smoked occ Alcohol Use Standard Drinks/Week Comments Yes 0.8 [...] documented as of this encounter Nursing Notes Zandra Bartholomew RN - 09/01/2016 10:51 AM CST per standing order Zandra Bartholomew RN TS TRAINER Caden, Out Appiny Query - 08/31/2016 5:53 PM CST fluticasone (FLONASE) 50 MCG/ACT nasal solution [Pharmacy Med Name: FLUTICASONE PROP 50 MCG SPRAY] Protocol: Allergy - Nasal Steroids -> Refill x 3 months (courtesy refill. overdue for an office visit) -> Calculate quantity and refills manually. They could not be estimated due to missing or unreadable information. Last qualifying visit: 07/30/2015 (in Family Practice) Next scheduled visit: None Last ordered by MARVIN ALVAREZ M: 07/30/2015 (398 days ago) QTY: 16, Refills: 11, Sig: apply or instill 1 spray into both nostrils daily. (unchanged) Powered by [employer], Reference: [id number], 08/31/2016 5:53:22 PM SPORTS TRAINER, Pool: TAMEKA REFILL RN ([id number]) TS TRAINER documented in this encounter Plan of Treatment Not on filedocumented as of this encounter Visit Diagnoses Not on filedocumented in this encounter
--- OUTSIDE RECORDS SUMMARY | 2022-03-10 15:57 | XMS_ITS | Encounter Summary ---
:1990 Author Organization [facility] Address [address], [place] [address] Care Team Providers Name Role Phone Unavailable Primary Care Provider Unavailable Reason for Visit Reason Comments Refill ranitidine (ZANTAC) 150 MG t ablet [Pharmacy Med Name: RANITIDINE 150 MG TABLET] Encounter Details Date Type Department Care Team Description 07/02/2016 Refill [facility] [address] Elaine Shultz MD Refill (ranitidine [facility] [address] [facility] (ZANTAC) 150 MG tablet [address] [place] [address] [Pharmacy [place]: [place] [address] RANITIDINE 150 MG [phone] TABLET]) Social History Tobacco Use Types Packs/Day Years [...] documented as of this encounter Nursing Notes Edith Vázquez RN - 07/02/2016 8:47 AM CST per standing order Edith Vázquez RN DRILL OPERATOR HELPER Interface, Out [address] Query - 07/02/2016 1:28 AM CST ranitidine (ZANTAC) 150 MG tablet [Pharmacy Med Name: RANITIDINE 150 MG TABLET] Protocol: H2 Blockers -> Refill x 3 months (until due for an office visit) Last qualifying visit: 07/30/2015 (in Family Practice) Next scheduled visit: None Last ordered by ELAINE SHULTZ L: 04/08/2016 (85 days ago) QTY: 90, Refills: 1, Sig: take 1 tablet by mouth every morning. may take an additional dose at bedtime if needed (unchanged) Powered by [employer], Reference: [id number], 07/02/2016 1:28:57 AM CORE DRILL OPERATOR HELPER, Pool: TAMEKA BATISTA RN ([id number]) DRILL OPERATOR HELPER documented in this encounter Plan of Treatment Not on filedocumented as of this encounter Visit Diagnoses Not on filedocumented in this encounter
--- OUTSIDE RECORDS SUMMARY | 2022-03-10 15:57 | XMS_ITS | Encounter Summary ---
:1990 Author Organization [facility] Address [address], [place] [address] Care Team Providers Name Role Phone Unavailable Primary Care Provider Unavailable Reason for Visit Reason Comments ROUTINE HEALTH MAINTENANCE Encounter Details Date Type Department Care Team Description 03/26/2017 Office Visit [facility] Chaya Bautista P [facility] (Primary Dx); Obstetrics and MD Family planning, subdermal contraceptive checking/reinsertion/removal Gynecology [id number] [address] [place] [address] [id number] Social History Tobacco Use Types Packs/Day Years Used Date Smoking Tobacco: Some Days Smokeless Tobacco: Never Comments: social smoker Alcohol Use Standard Drinks/Week Comments Yes 0.8 [...] Sign Reading Time Taken Comments Blood Pressure 111/77 03/26/2017 10:32 AM CDT Pulse 78 03/26/2017 10:32 AM CDT Temperature - - Respiratory Rate - - Oxygen Saturation - - Inhaled Oxygen Concentration - - Weight 87.5 kg (193 lb) 03/26/2017 10:32 AM CDT Height 156.8 cm (5' 1.75) 03/26/2017 10:32 AM CDT Body Mass Index 35.59 03/26/2017 10:32 AM CDT documented in this encounter Patient Instructions Patient InstructionsCaroline Cantrell LPN - 03/26/2017 10:20 AM CDT Images from the original note were not included. Learning About Control: The Implant What is the implant? The implant is used to prevent . It's a thin gerda about the size of a matchstick that is inserted under the skin (subdermal) on the inside of your arm. The implant releases the hormone progestin to prevent . Progestin prevents in these ways: It thickens the mucus in the cervix. This makes it hard for sperm to travel into the uterus.It also thins the lining of the uterus, which makes it harder for a fertilized egg to attach to the uterus. Progestin can sometimes stop the ovaries from releasing an egg each month (ovulation). The implant prevents for 3 years. Once it is put in, you don't have to do anything else toprevent . The implant can only be inserted and removed by your doctor or another trained health professional. These procedures can be done in your doctor's office and only take a few minutes. Your doctor numbs the area and injects the implant under your skin. No cuts are made in your skin.To remove the implant, your doctor numbs the area, makes a small cut in the skin, and pulls the implant out. How well does it work? The implant works very well. Fewer than 1 woman out of 100 has an unplanned . Be sure to tell your doctor about any health problems you have or medicines you take. He or she can help you choose the control method that is right for you. What are the advantages of the implant? ?? The implant is one of the most effective methods of control. ?? It prevents for up to 3 years. You don't have to worry about control for this time. ?? It's safe to use while . ?? The implant doesn't contain estrogen. So you can use it if you don't want to take estrogen or can't take estrogen because you have certain health problems or concerns. ?? It may reduce heavy bleeding and cramping. ?? It's convenient. It is always providing control and cannot be seen. You don't need to remember to take a pill or get a shot. You don't have to interrupt sex to protect against . What are the disadvantages of the implant? ?? The implant doesn't protect against sexually transmitted infections (STIs), such as herpes or HIV/AIDS. If you aren't sure if your sex partner might have an STI, use a condom to protect against infection. ?? It may cause irregular periods, or you may have spotting between periods. You may also stop getting a period. Some women see having no period as an advantage. ?? It may cause mood changes, less interest in sex, or weight gain. ?? You have to see a doctor to have an implant inserted and removed. Where can you learn more? 1. Go to Pets are family too/[employer] or [employer]. 2. Enter F276 in the search box. Current as of: October 15, 2016 Content Version: 11.3 ?? [id number] [employer]. Well Visit, Ages 18 to 50: Care Instructions Your Care Instructions Physical exams can help you stay healthy. Your doctor has checked your overall health and may have suggested ways to take good care of yourself. He or she also may have recommended tests. At home, you can help prevent illness with healthy eating, regular exercise, and other steps. Follow-up care is a wolff part of your treatment and safety. Be sure to make and go to all appointments, and call your doctor if you are having problems. It's also a good idea to know your test results and keep a list of the medicines you take. How can you care for yourself at home? ?? Reach and stay at a healthy weight. This will lower your risk for many problems, such as obesity,diabetes, heart disease, and high blood pressure. ?? Get at least 30 minutes of physical activity on most days of the week. Walking is a good choice. You also may want to do other activities, such as running, swimming, cycling, or playing tennis or team sports. Discuss any changes in your exercise program with your doctor. ?? Do not smoke or allow others to smoke around you. If you need help quitting, talk to your doctor about stop-smoking programs and medicines. These can increase your chances of quitting for good. ?? Talk to your doctor about whether you have any risk factors for sexually transmitted infections (STIs). Having one sex partner (who does not have STIs and does not have sex with anyone else) is a good way to avoid these infections. ?? Use control if you do not want to have children at this time. Talk with your doctor about the choices available and what might be best for you. ?? Protect your skin from too much sun. When you're outdoors from 10 a.m. to 4 p.m., stay in the shade or cover up with clothing and a hat with a wide brim. Wear sunglasses that block UV rays. Even when it's cloudy, put broad-spectrum sunscreen (SPF 30 or higher) on any exposed skin. ?? See a dentist one or two times a year for checkups and to have your teeth cleaned. ?? Wear a seat belt in the car. ?? Drink alcohol in moderation, if at all. That means no more than 2 drinks a day for men and 1 drink a day for women. Follow your doctor's advice about when to have certain tests. These tests can spot problems early. For everyone ?? Cholesterol. Have the fat (cholesterol) in your blood tested after age 20. Your doctor will tell you how often to have this done based on your age, family history, or other things that can increase your risk for heart disease. ?? Blood pressure. Have your blood pressure checked during a routine doctor visit. Your doctor will tell you how often to check your blood pressure based on your age, your blood pressure results, and other factors. ?? Vision. Talk with your doctor about how often to have a glaucoma test. ?? Diabetes. Ask your doctor whether you should have tests for diabetes. ?? Colon cancer. Have a test for colon cancer at age 50. You may have one of several tests. If you are younger than 50, you may need a test earlier if you have any risk factors. Risk factors include whether you already had a precancerous polyp removed from your colon or whether your parent, brother, si ster, or child has had colon cancer. For women ?? Breast exam and mammogram. Talk to your doctor about when you should have a clinical breast exam and a mammogram. Medical experts differ on whether and how often women under 50 should have these tests. Your doctor can help you decide what is right for you. ?? Pap test and pelvic exam. Begin Pap tests at age 21. A Pap test is the best way to find cervical cancer. The test often is part of a pelvic exam. Ask how often to have this test. ?? Tests for sexually transmitted infections (STIs). Ask whether you should have tests for STIs. Youmay be at risk if you have sex with more than one person, especially if your partners do not wear condoms. For men ?? Tests for sexually transmitted infections (STIs). Ask whether you should have tests for STIs. Youmay be at risk if you have sex with more than one person, especially if you do not wear a condom. ?? Testicular cancer exam. Ask your doctor whether you should check your testicles regularly. ?? Prostate exam. Talk to your doctor about whether you should have a blood test (called a PSA test)for prostate cancer. Experts differ on whether and when men should have this test. Some experts suggest it if you are older than 45 and are -Honduran or have a father or brother who got prostatecancer when he was younger than 65. When should you call for help? Watch closely for changes in your health, and be sure to contact your doctor if you have any problems or symptoms that concern you. Where can you learn more? 1. Go to Pets are family too/[employer] or [employer]. 2. Enter P072 in the search box. Current as of: February 18, 2016 Content Version: 11.3 ?? [id number] [employer]. After insertion of Nexplanon, you might feel some mild soreness or tenderness at the insertion site.It should not last more than a day or two and should not interfere with you usual activities. If youhave pain or bleeding at the insertion site that does not resolve in a day or two, please call your clinic. Expect your menstrual periods to become irregular and unpredictable throughout the time you are using the Nexplanon. The device must be removed three years after insertion. It may be removed sooner if you wish. Please call your clinic at [facility] [address] [place], [place] [id number] Dept: [phone] Loc: [phone] if you notice signs of infection or have any concerns. documented in this encounter Progress Notes Chaya Bautista MD - 03/26/2017 10:20 AM CDT HPI Juliette Gaming is a 26 y.o. Para 0 woman who presents for preventive health examination. Current concerns: 1. Nexplanon due for removal by . Plan removal and replacement today. Menses are more spotting in the 3rd year of the Nexplanon, but nothing bad enough to d/c the method. Sexual activity: sexually active with male partner. Chlamydia (no units) Date Value 05/26/2013 Negative GC (N. gonorrhoeae) (no units) Date Value 05/26/2013 Negative Hemoglobin (g/dl) Date Value 02/23/2014 11.7 (L) Normal: 12-17 Contraception: Nexplanon. Calcium: 2 dairy/day and an ensure Exercise: Walking occasionally. Estimated body mass index is 35.59 kg/(m^2) as calculated from the following: Height as of this encounter: 5' 1.75 (1.568 m). Weight as of this encounter: 193 lb (87.5 kg). Screening Tests: Pap: 05/2013 NILM Declines gc/ct, no new partner for 6 years. The medical, surgical, social and family histories were reviewed and updated. ROS Eyes: negative Ears/Nose/Throat: negative Respiratory: negative Cardiovascular: negative Gastrointestinal: heartburn, abd pain Genitourinary: negative Musculoskeletal: joint pain, sees rheum Neurologic: negative Endocrine: negative Psychosocial: negative PE BP 111/77 Pulse 78 Ht 5' 1.75 (1.568 m) Wt 193 lb (87.5 kg) LMP 03/15/2017 BMI 35.59 kg/m2 General appearance: stated age, healthy, alert, in no distress, cooperative, smiling, well nourished, obese Oropharynx: negative Skin: Skin color, texture, turgor normal. No rashes or lesions. Neck: negative Lungs: Clear to auscultation without rales or rhonchi Heart: negative Breasts: Inspection negative. No nipple discharge or bleeding. No masses or tenderness Abdomen: Abdomen soft, non-tender without masses or organomegaly Legs: No edema Pelvic Examination:EGBUS within normal limits, vagina well rugated, normal cervix without lesions, polyps or tenderness, nulliparous os, uterus anteverted, uterus normal size, shape, consistency, no mass or tenderness and adnexa normal in size without mass or tenderness. ASSESMENT: Preventive evaluation and examination. Nexplanon removal and re-insertion PLAN: 1. Pap collected. Declines gc/ct. 2. Nexplanon removal/replacement, see note below. 3. RTC 1 yr and PRN. Reviewed: contraception/family planning, osteoporosis prevention and regular exercise. Chaya Bautista MD PROCEDURE Juliette Gaming is a 26 y.o. old female who presents for removal and reinsertion of the Nexplanon contraceptive gerda. She has been counseled regarding the risks, benefits and alternatives to Nexplanon. She has no contradictions to Nexplanon. Her questions have been answered. She wishes to proceed with the removal/reinsertion today. Pt has an active Nexplanon. The inner side of the left upper arm was painted with betadine and infiltrated with 2.5 ml of 0.5% marcaine. A skin incision was made at the distal end parallel to the gerda. The gerda was then grasped with a forcep and easily removed. The full Nexplanon tract was further infiltrated with an additional 2.5 ml of 0.5% marcaine. The new Nexplanon gerda was inserted according to the manufacturers instructionswithout complications. The gerda was palpable under the skin after the insertion. Skin glue and pressure dressing applied. Pt tolerated procedure with minimal discomfort. Juliette Gaming given post-insertion instructions. She understands that her menstrual periods are expected to become irregular and unpredictable throughout the time she is using the Nexplanon. She understands that the device must be removed at the end of three years and may be removed sooner if she wishes. She was instructed to call the clinic if signs of infection or with any other concerns. Chaya Bautista MD 03/26/2017, 11:01 AM documented in this encounter Plan of Treatment Not on filedocumented as of this encounter Procedures Procedure Name Priority Date/Time Associated Diagnosis Comme nts HPV, HIGH RISK Routine 03/26/2017 3:58 PM Results for this CDT procedure are i n the results section. PAP TEST, ROUTINE Routine 03/26/2017 3:58 PM Preventative heal th Results for this CDT care procedure are i n the results section. documented in this encounter Results HPV, High Risk (03/26/2017 3:58 PM CDT) Component Value Ref Test Analysis Performed At [facility] TagCash Range Method Time Signature HPV RESULT Negative NEG [facility] [place] [place] [facility] Comments (NOTE) [facility] [place] [place] The Jennifer HPV Test is a qualitative in vitro test for the detection LABORATORIES of Human Papillomavirus in [facility] patient specimens. The t est utilizes amplification of target DNA by Polymerase Chain Angela ction (PCR) and nucleic acid hybridization for the detection of 14 high-risk (HR) HPV types. The assay tests for high risk type s 16, 18, 31, 33, 35, 39, 45, 51, 52, 56, 58, 59, 66 and 68. Testing performed at: This test was developed and its performance characteristics determined by [facility]. ??It has not been cleared or approved by the U.S. Food and Drug Administration. ??The FDA has determined that such clearance or approval is not necessary. ??This test is used for clinical purposes. ??It should not be regar ded as investigational or for research. ??This laboratory is certif ied under the Clinical Laboratory Improvement Amendments of 1988 (CLIA -88) as qualified to perform high complexity testing. Specimen Anatomical Collection Method Collection Time Receive d Time (Source) Location / / Volume Laterality 03/26/2017 3:58 PM 7 4:01 CDT PM CDT Narrative [facility] [place] [place] [facility] - 04/09/2017 8:20 AM C DT Performed at [facility] , [address] [place] [id number] Chaya Bautista MD LAB_1 Performing Organization Address City/State/ZIP Code Phon e Number [facility] [phone] Pap Test, Routine (03/26/2017 3:58 PM CDT) Component Value Ref Test Analysis Performed At [facility] [employer] Development Method Time Signature Cytology, (NOTE) [facility] [place] [place] Pap Airworthiness Safety Inspector Cytology Report LABORATORI ES Patient Name: JULIETTE GAMING Taken: 03/26/2017 Received: 03/29/2017 Reported: 04/07/2017 Physician(s): CHAYA BAUTISTA ?Source of Specimen Pap Test, Routine Cervical/Endocervical: ?Specimen Adequacy ?Satisfactory for evaluation. ??Endocervical component present. ? Final Cytologic Interpretation/Result EPITHELIAL CELL ABNORMALITIES Atypical squamous cells, undetermined significance (ASC-US) . Human Papilloma Virus Ancillary Testing Specimen sent for HPV testing as requested by provider; sepa rate report to follow *Electronically Signed Out By* ? MD Yvette Mckee (ASCP) ? Pap Smear History Date of Last Menstrual Period: 03/15/2017 ?? Microscopic Description Microscopic examination is performed. [facility] Department of Pathology [address] [place] [address] ??[phone] Specimen Anatomical Collection Method Collection Time Receive d Time (Source) Location / / Volume Laterality 03/26/2017 3:58 PM 7 CDT 12:00 PM CDT Chaya Bautista MD LAB_1 Performing Organization Address City/State/ZIP Code Phon e Number [facility] [phone] documented in this encounter Visit Diagnoses Diagnosis Preventative health care - Primary Routine general medical examination at a health care facility Family planning, subdermal contraceptive checking/reinsertion/removal Surveillance of previously prescribed im plantable subdermal contraceptive documented in this encounter Administered Medications Inactive Administered Medications - up to 3 most recent administrations Medication Order MAR Action Action Date Dose Rate Site etonogestrel (NEXPLANON) Given 03/26/2017 11:28 AM CDT 68 mg Left Arm implant 68 mg 68 mg, Subcutaneous, ONCE, On Wed03/26/17 at 1130, For 1 dose documented in this encounter
--- OUTSIDE RECORDS SUMMARY | 2022-03-10 15:57 | XMS_ITS | Encounter Summary ---
:1990 Author Organization [facility] Address [address] [address] Care Team Providers Name Role Phone Unavailable Primary Care Provider Unavailable Reason for Visit Reason Comments Dental Conversion [facility] EDR to [place] convers ion Encounter Details Date Type Department Care Team Description 01/07/2017 Dental Conversion [facility] [place] [facility] Pedro Oconnor, Dentistry DDS [address] [place] [address] [place], [place] [address] Social History Tobacco Use Types Packs/Day Years [...] on file documented as of this encounter Discharge Summaries Interface, In Edr Dental Conversion - 05/07/2017 12:00 AM CDT EDR Pt Notes: prefers not to have 438 documented in this encounter Miscellaneous Notes Miscellaneous - Interface, In Edr Dental Conversion - 03/27/2008 12:00 AM CDT 03/27/2008: SNC/NS Notification: Can't get off work documented in this encounter Plan of Treatment Not on filedocumented as of this encounter Visit Diagnoses Not on filedocumented in this encounter
--- OUTSIDE RECORDS SUMMARY | 2022-03-10 15:57 | XMS_ITS | Encounter Summary ---
:1990 [facility] Address [address] [place] [address] Care Team Providers Name Role Phone Unavailable Primary Care Provider Unavailable Reason for Visit Reason Comments Plaquenil Check Pt here for annual exam due to plaquenil, MATT Dr. Travis, pt denies any changes in vision , no concerns with eyes, uses OTC allergy drops for itching and rednes s. Encounter Details Date Type Department Care Team Description 04/14/2016 Office Visit [facility] Tony Travis Inflam matory polyarthropathy (HRC) (Primary Dx); [facility] OD Long-term use of Plaquenil [address] [place] [address] [place], [place] [phone] [id number] Social History Tobacco Use Types Packs/Day Years [...] on file documented as of this encounter Patient Instructions Patient InstructionsTony Travis, OD - 04/14/2016 8:45 AM CDT Your eyes look healthy! Return in 1 year for 10-2 visual field and eye exam documented in this encounter Progress Notes Tony Travis, OD - 04/14/2016 8:59 AM CDT HPI Chief Complaint Patient presents with ??? Plaquenil Check Pt here for annual exam due to plaquenil, MATT Dr. Travis, pt denies any changes in vision, noconcerns with eyes, uses OTC allergy drops for itching and redness. 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 Tony Travis, AFTAB documented in this encounter Plan of Treatment Not on filedocumented as of this encounter Visit Diagnoses Diagnosis Inflammatory polyarthropathy (HRC) - Felicia webb Unspecified inflammatory polyarthropathy Long-term use of Plaquenil documented in this encounter
--- OUTSIDE RECORDS SUMMARY | 2022-03-10 15:57 | XMS_ITS | Encounter Summary ---
:1990 Author Organization Counts include 234 beds at the [facility] Address [address] [address] Care Team Providers Name Role Phone Unavailable Primary Care Provider Unavailable Reason for Referral Procedure/Equipment (Routine) - Closed Specialty Diagnoses / Procedures Referred By Contact Refer red To Contact Diagnoses Gastroesophageal reflux disease, esophagitis presence not specified Lorrie Bhat APRN, WOOD FENCE INSTALLER [address] [place] [address] Referral ID Status Reason Start Date Expiration Date Visits Requ ested Visits Authorized [id number] Closed 08/06/2016 11/05/2017 1 1 Scheduling Instructions Your provider [facility] You may call [phone] to schedule yo ur appointment. If you prefer, a oracle apex developer will contact you within the next 3 in days to assist you in setting up this appointment. We suggest you call your [employer] insurance company about your coverage and benefits for this appointment. GER OB Reason for Visit Reason Comments Revisit Encounter Details Date Type Department Care Team Description 08/06/2016 Office Visit [facility] Mian Bhat oesophageal reflux [address] [facility] Lorrie Soto APRN, diseas e, esophagitis Clinic WOOD FENCE INSTALLER presence not specified [address] (Primary Dx) [place] [address] [place], [place] [phone] [id number] Social History Tobacco Use Types Packs/Day Years [...] Sign Reading Time Taken Comments Blood Pressure 105/67 08/06/2016 8:37 AM MANAGER OB Pulse 78 08/06/2016 8:37 AM MANAGER OB Temperature 36.7 ??C (98 ??F) 08/06/2016 8:37 AM MANAGER OB Respiratory Rate - - Oxygen Saturation - - Inhaled Oxygen Concentration - - Weight 83 kg (183 lb) 08/06/2016 8:37 AM MANAGER OB Height 154.9 cm (5' 1) 08/06/2016 8:37 AM MANAGER OB Body Mass Index 34.58 08/06/2016 8:37 AM MANAGER OB documented in this encounter Patient Instructions Patient InstructionsLorrie Bhat APRN, MATILDA - 08/06/2016 9:03 AM MANAGER OB Stop Zantac Start Omeprazole---a prescription was sent to your pharmacy Stool test--start Omeprazole after you collect stool specimen Upper endoscopy if H pylori negative and symptoms persist Your follow up appointment with Dr. Stone Palacio is scheduled for November 06 at 11:00 am. Nothing to eat or drink after midnight. Must have a local [place] truck driver to drive you home. Follow up Your follow up appointment with Lorrie Ferrari NP is scheduled for November 13 at 8:20 am. If you have any questions or concerns, please call [facility] at [phone]. Lorrie Ferrari APRN, WOOD FENCE INSTALLER GER OB documented in this encounter Progress Notes Lorrie Bhat APRN, MATILDA - 08/06/2016 9:06 AM CST GASTROENTEROLOGY FOLLOWUP NOTE DATE OF SERVICE: 08/06/2016 Juliette Gaming is a 26 y.o. old female who is here for a follow-up appointment. HISTORY OF PRESENTING ILLNESS: I have seen her previously in 2013 regarding abdominal pain and diarrhea. She had a colonoscopy which was normal and random biopsies were unremarkable. Biopsies of the terminal ileum were also unremarkable. She reports that her bowel pattern is normal lately. She does not have any diarrhea or constipation. No hematochezia or melena. She does not have lower abdominal pain. Her bigger concern is ongoing heartburn and acid reflux. She has been taking Zantac 150 mg twice aday for the past couple of years and continues to have acid reflux/regurgitation on a daily basis. She has increased symptoms on an empty stomach and also while lying flat. She has mild dysphagia however this is not a new problem and drinking liquids with solids seems to help. She has epigastric pain which occurs on an empty stomach. She does not have any nausea or vomiting. She has not had any unintentional weight loss. Cinnamon seems to be a trigger. Fatty meats and also raw vegetables are triggers for increased reflux. She has not had any fevers or chills. She continues to follow with rheumatology for her inflammatory polyarthropathy. She is taking Plaquenil and a regular basis. She does not have any ongoing arthralgias. CRP has been normal. She takes nonsteroidal anti-inflammatory drugs on a rare basis. PMH/PSH: Unremarkable Social history she is single. 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 No tobacco use. Minimal alcohol use. Family history: Unremarkable REVIEW OF SYSTEMS: The remainder of complete review of systems is negative. MEDICATIONS: Patient has a current medication list which includes the following prescription(s): fluticasone, hydroxychloroquine, omeprazole, psyllium-calcium, and ranitidine. ALLERGIES: Review of patient's allergies indicates no known allergies. PHYSICAL EXAM: Patient is alert, awake, oriented and in no acute distress. BP 105/67 mmHg Pulse 78 Temp(Src) 98 ??F (36.7 ??C) (Tympanic) Ht 5' 1 (1.549 m) Wt 183 lb (83.008 kg) BMI 34.60 kg/m2 HEAD: Atraumatic EYES: Non-icteric NECK: Supple, no thyromegaly CHEST: Clear to auscultation CVS: Regular rate and rhythm ABDOMEN: Bowel sounds are normal. No abdominal bruit. Soft, non-tender, no organomegaly or mass palpable. SKIN: No obvious rashes. EXTREMITIES: No cyanosis, clubbing, edema or koilonychia on right and left upper extremity. No pre-tibial pitting edema. ASSESSMENT AND PLAN: 26 year old female with GERD. Persistent symptoms despite daily H2 nora. Will check stool for Helicobacter pylori antigen. We reviewed antireflux measures today. Recommend stopping Zantac and starting omeprazole but she was advised to wait on starting this until she collects her stool specimen. If Helicobacter pylori testing is positive, we will treat accordingly. If negative, and symptoms persist, recommend upper endoscopy for further evaluation. Of note, she reports that she had nausea and vomiting after her colonoscopy and felt it was related to medications. We will note this in her chart andshe may be given an antiemetic prior to her next procedure. She was scheduled for return visit to discuss response to treatment and results of testing. Lorrie Ferrari APRN, MATILDA 08/06/2016, 9:06 AM GER OB documented in this encounter Plan of Treatment Scheduled Referrals Name Type Priority Associated Diagnoses Order S chedule EGD (Endoscopy) Referral Routine Gastroesophageal reflux O rdered: 08/06/2016 disease, esophagitis presenc e not specified documented as of this encounter Results H. Pylori Antigen Feces (08/10/2016 8:26 AM MANAGER OB) Component Value Ref Test Analysis Performed At [facility] Range Method Time Signature H Pylori [facility] Result LABORATORIES H Pylori (NOTE) [facility] Result HELICOBACTER PYLORI AG, EIA, STOOL ?? LABORATORIES ?? MICRO NUMBER: ?[id number] TEST STATUS: ? FINAL SPECIMEN SOURCE: ?? STOOL SPECIMEN QUALITY: ??ADEQUATE RESULT: ?Not Detected ?Antimicrobials, proton pump in hibitors, and ?bismuth preparations inhibit H . pylori and ?ingestion up to two week s prior to testing may ?cause false negative results. If clinically ?indicated the test shoul d be repeated on a new ?specimen obtained two weeks after discontinuing ?treatment. Test performed at [facility] [address], [place] ??[address] Director: MELVA SOTO MD Specimen Anatomical Collection Method Collection Time Receive d Time (Source) Location / / Volume Laterality Stool specimen 08/10/2016 8:26 AM 017 8:30 (specimen) MANAGER OB AM MANAGER OB Lorrie Bower APRN, WOOD FENCE INSTALLER LAB_1 Performing Organization Address City/State/ZIP Code Phon e Number [facility] [phone] documented in this encounter Visit Diagnoses Diagnosis Gastroesophageal reflux disease, esophag itis presence not specified - Primary documented in this encounter
--- OUTSIDE RECORDS SUMMARY | 2022-03-10 15:57 | XMS_ITS | Encounter Summary ---
:1990 Author Organization [facility] Address [address] [place] [address] Care Team Providers Name Role Phone [facility], Clinician Primary Care Provider Unavailable Encounter Details Date Type Department Care Team Description 09/30/2016 Refill Order [facility] [address] Elaine Shultz MD [facility] [address] [place] [address] [place] [address] [phone] Social History Tobacco Use Types Packs/Day Years [...] documented as of this encounter Nursing Notes Trenton West CMA - 09/30/2016 7:52 AM CST Letter sent to pt. Trenton West CMA 09/30/2016, 7:52 AM NSICS ANALYST documented in this encounter Plan of Treatment Not on filedocumented as of this encounter Visit Diagnoses Diagnosis Encounter for long-term (current) use of medications - Primary Encounter for long-term (current) use of other medications documented in this encounter Care Teams Registered Dental Assistant Relationship Specialty Start Date End Date Nemesio Rush PCP - General 11/22/[address] [place] [address] documented as of this encounter
--- OUTSIDE RECORDS SUMMARY | 2022-03-10 15:57 | XMS_ITS | Encounter Summary ---
:1990 Author Organization [facility] Address [address], [place] [address] Care Team Providers Name Role Phone Unavailable Primary Care Provider Unavailable Reason for Visit Reason Comments Refill fluticasone (FLONASE) 50 MCG /ACT nasal solution Encounter Details Date Type Department Care Team Description 09/28/2017 Refill [place] Eduarda Guy MD Refill (fluticasone Practice [address] (FLONASE) 50 MCG/ACT [address] [place] [address] nasal solution ) [place], [place] [address] [phone] Social History Tobacco Use Types Packs/Day Years [...] documented as of this encounter Nursing Notes Sandra Ortega - 09/29/2017 3:41 PM CST Medication Refill - Overdue Visit Patient called back. She is no longer coming here for care (due to insurance coverage). She will contact pharmacy and set up an appt with a new PCP in her network. Please remove pended medication. Thank you, Sandra Ortega ORATE EXECUTIVE CHEF Sandra Ortega - 09/29/2017 3:40 PM CST Medication Refill - Overdue Visit Called patient, was: Unable to reach patient 1st call attempted. Left message to call back. Sandra Ortega ORATE EXECUTIVE CHEF Indira Gomez RN - 09/29/2017 2:28 PM CST Further Assistance Needed on Refill from Youth Services Specialist Patient is overdue for Office visit. A qualifying visit was not found within the last 2 years. Please call patient to schedule a Office Visit and document using .MIKAL. After attempting to schedule patient: Indira Gomez RN 09/29/2017, 2:28 PM Please route to: Clinician/Care Team [place]ron ORATE EXECUTIVE CHEF Caden, Matti Choiscriadam Prov Query - 09/28/2017 11:45 AM CST fluticasone (FLONASE) 50 MCG/ACT nasal solution [Pharmacy Med Name: FLUTICASONE PROP 50 MCG SPRAY] Allergy - Nasal Steroids -> A qualifying visit was not found within the last 2 years. Last qualifying visit: None Next scheduled visit: None Last ordered by SHRADDHA MATUTE L: 03/22/2017 (190 days ago) QTY: 48, Refills: 1, Sig: apply or instill 1 spray into both nostrils daily. (unchanged) Powered by [employer], Reference: [id number], 09/28/2017 11:45:41 AM CORPORATE EXECUTIVE CHEF, Pool: TAMEKA BATISTA RN ([id number]) ORATE EXECUTIVE CHEF documented in this encounter Plan of Treatment Not on filedocumented as of this encounter Visit Diagnoses Not on filedocumented in this encounter
--- OUTSIDE RECORDS SUMMARY | 2022-03-10 15:57 | XMS_ITS | Encounter Summary ---
:1990 Author Organization [facility] Address [address] [place] [address] Care Team Providers Name Role Phone Unavailable Primary Care Provider Unavailable Reason for Referral Dental (Routine) - Closed Specialty Diagnoses / Procedures Referred By Contact Refer red To Contact Diagnoses S/P skin biopsy Madison Kirk DDS [address] [place] [address] Referral ID Status Reason Start Date Expiration Date Visits Requ ested Visits Authorized [id number] Closed 06/04/2017 09/03/2018 1 1 Scheduling Instructions Your provider has recommended an appoint ment with an oral surgeon within [facility]. You may c all one of the clinics below to schedule an appointment. If you prefer, a ticket scheduler will contact you within the next 3 business days to assist you in setting up this ap pointment. [place] - [phone] [facility] [phone] [place] [phone] Reason for Visit Reason Comments Dental Hygiene hot and cold sensitivity lr premolar area Encounter Details Date Type Department Care Team Description 06/04/2017 Office Visit [place] Myranda Guido ental Hygiene (hot Dentistry I, RDH and cold sensitivity [address] [facility] lr premolar area) [place] [address] [phone] Social History Tobacco Use Types Packs/Day Years [...] Sign Reading Time Taken Comments Blood Pressure 107/65 06/04/2017 7:44 AM CDT Pulse 86 06/04/2017 7:44 AM CDT Temperature - - Respiratory Rate - - Oxygen Saturation - - Inhaled Oxygen Concentration - - Weight - - Height - - Body Mass Index - - documented in this encounter Patient Instructions Patient InstructionsMyranda Frankel I, [facility] - 06/04/2017 7:40 AM CDT Your next hygiene recall is due 06/04/2018 YOUR PERSONAL DENTAL RISK REPORT Caries (Tooth Decay) Risk Periodontal (Gum Disease) Risk Oral Cancer Risk High Moderate X Low This exam High Moderate Low X This exam Elevated Low X This exam Your risk level: Moderate Your risk level: Low Congratulations. The results of your dental risk assessment indicate you are at low risk for gum disease. Making healthy life style choices including brushing twice a day; daily flossing and not using tobacco should help you maintain this low risk. Your risk level: Low Congratulations. The results of your dental risk assessment indicate you are at low risk for oral cancer. Making healthy life style choices such as not using tobacco and low to moderate alcohol use should help you maintain this low risk. We look forward to seeing you at your next. Caries (Tooth Decay) Risk Periodontal (Gum Disease) Risk Oral Cancer Risk Your risk factors Your risk factors Your risk factors 1 to 2 caries in last 3 years How to reduce your risk Recall at 6-12 months Daily rinsing of fluoride product purchased at [facility] orother retail store Rinse with fluoride rinse once or twice daily at times other than when brushing Application of a concentrated fluoride product to the teeth in the clinic to assist in remineralization How to reduce your risk How to reduce your risk documented in this encounter Progress Notes Madison Kirk DDS - 06/04/2017 7:40 AM CDT ORAL LESION NOTE S: Patient's description of the lesion: unknown Time present: unknown Pain on 1-10 pain scale: 0 Bleeding: no Change in size: n/a Has it previously been biopsied: no O: Location: hard palate between 4-5 4 mm from gingival margin. Size: single, multiple single 3x3mm Color: skin colored Shape: circular Texture: pedunculated Border appearance: Associated cervical lymphadenopathy no Images made: no A: Differential Diagnosis: hpv P: Plan: OS referral for biopsy RECALL EXAM NOTE Chief Complaint Patient presents with ??? Dental Hygiene hot and cold sensitivity lr premolar area Chart Review ?? Reviewed health history, dental history, problem list, periodontal charting and radiographs with the patient Soft tissue, head and neck examination ?? Lips: normal ?? Tongue: normal ?? Palate: normal ?? Throat: normal ?? Floor of the mouth: normal ?? Mucosa: normal ?? Head and neck: normal TMD Evaluation ?? Palpation pain: none ?? Joint sounds: none ?? Pain with range of motion: none Occlusal examination unchanged Cosmetic concerns ?? Patient???s perception: acceptable ?? Dentist???s perception: acceptable Treatment Review and Follow-up ?? Dental Findings: were described to the patient and they did express understanding. ?? Treatment options and prognosis: were discussed ?? Informed patient consent: was obtained after all questions were answered. ?? Recommended Recall Examination: 6 months Recall prophy: 6 months ?? Planned Recall Examination: 12 months Recall prophy: 12 months Madison Kirk DDS 06/04/2017, 8:06 AM Myranda Frankel RDH - 06/04/2017 7:40 AM CDT PROPHY NOTE Collaborative Agreement: ?? Patient consents to have charting and prophylaxis by the dental hygienist performed with the understanding that this care is not a substitute for examination by a dentist. Presentation ?? Oral Hygiene: normal ?? Plaque: localized; moderate; supra-gingival ?? Calculus:localized; light; supra-gingival and mandibular anterior ?? Stain: none ?? Bleeding: none ?? Gingival tissue: normal ?? Mucogingival concerns: absent Activities ?? Treatment included: hand scale, essential selective polishing and flossed all contacts Patient Education ?? Discussion topics: diet modification and intraoral/perioral piercings Also discussed pain associate with clenching and grinding. Placed duraflor for sensitivity and for decalcification on #[address]. Remineralization counseling ?? Patient's readiness for change is: preparation ?? Caries risk factors to be addressed: sensitivity ?? Patient has not been compliant with previous recommendations to address caries risk ?? Reviewed: reviewed remineralization and reviewed diet ?? Procedures: applied fluoride ?? Today these health education materials were distributed: None ?? Prescriptions for pharmacy and/or over the counter products: OTC Fluoride ?? Follow up plan: Completed dental procedures in this visit There are no completed dental procedures in this visit. Myranda Frankel 06/04/2017, 11:30 AM documented in this encounter Plan of Treatment Scheduled Orders Name Type Priority Associated Order Schedule Diagnoses PROPHYLAXIS-ADULT Dental Procedures Routine 1 Occ urrences RECALL starting 2019 TOPICAL FLUORIDE Dental Procedures Routine 1 Occu rrences VARNISH starting 2019 PERIODIC ORAL Dental Procedures Routine 1 Occurre nces EVALUATION starting 2019 [id number] Dental Procedures Routine 1 Oc currences starting 2019 Scheduled Referrals Name Type Priority Associated Diagnoses Order S chedule Oral Surgery Consult Referral Routine S/P skin biopsy Orde red: 06/04/2017 documented as of this encounter Procedures Procedure Name Priority Date/Time Associated Diagnosis Comme nts PROPHYLAXIS-ADULT Routine 06/04/2017 11:32 AM Routine health RECALL CDT maintenance PERIODIC ORAL Routine 06/04/2017 11:32 AM Routine health EVALUATION CDT maintenance TOPICAL FLUORIDE Routine 06/04/2017 11:32 AM Routine health VARNISH CDT maintenance 18 O EXISTING SEALANT Routine 06/04/2017 7:52 AM E1 CDT 15 O EXISTING SEALANT Routine 06/04/2017 7:52 AM E1 CDT 31 O EXISTING SEALANT Routine 06/04/2017 7:51 AM E1 CDT 15 EXISTING SEALANT E1 Routine 08/23/2007 12:00 AM MARINE STEAM FITTER HELPER 31 EXISTING SEALANT E1 Routine 08/23/2007 12:00 AM MARINE STEAM FITTER HELPER 30 EXISTING SEALANT E1 Routine 08/23/2007 12:00 AM MARINE STEAM FITTER HELPER 2 EXISTING SEALANT E1 Routine 08/23/2007 12:00 AM MARINE STEAM FITTER HELPER 18 EXISTING SEALANT E1 Routine 08/23/2007 12:00 AM MARINE STEAM FITTER HELPER 14 EXISTING SEALANT E1 Routine 08/23/2007 12:00 AM MARINE STEAM FITTER HELPER 3 EXISTING SEALANT E1 Routine 08/23/2007 12:00 AM MARINE STEAM FITTER HELPER 19 O EXISTING COMPOSITE Routine 08/23/2007 12:00 AM FILLING MARINE STEAM FITTER HELPER documented in this encounter Visit Diagnoses Diagnosis S/P skin biopsy - Primary Routine health maintenance Routine general medical examination at a health care facility Visit for periodic health examination Unspecified general medical examination Dental caries on smooth surface limited to enamel Dental caries of smooth surface Disease of the oral soft tissues Other and unspecified diseases of the or al soft tissues Gingivitis, chronic, non-plaque induced Chronic gingivitis, non-plaque induced Caries of dentin Dental caries extending into dentine documented in this encounter
--- OUTSIDE RECORDS SUMMARY | 2022-03-10 15:57 | XMS_ITS | Encounter Summary ---
:1990 Author Organization [facility] Address [address] [place] [address] Care Team Providers Name Role Phone Unavailable Primary Care Provider Unavailable Reason for Visit Reason Comments Oral Surgical Services lesion consult, incidental f inding Dental (Routine) - Closed Specialty Diagnoses / Procedures Referred By Contact Refer red To Contact Diagnoses S/P skin biopsy Madison Kirk DDS [address] [place] [address] Referral ID Status Reason Start Date Expiration Date Visits Requ ested Visits Authorized [id number] Closed 06/04/2017 09/03/2018 1 1 Encounter Details Date Type Department Care Team Description 07/29/2017 Office Visit [facility] Brent Amos, Oral Surgical Services [address] light DDS (lesion consult, [place] [address] incidental finding) [phone] [place], [place] [id number] Social History Tobacco Use Types Packs/Day Years [...] Sign Reading Time Taken Comments Blood Pressure 119/68 07/29/2017 3:05 PM SAXOPHONE ASSEMBLER Pulse 75 07/29/2017 3:05 PM SAXOPHONE ASSEMBLER Temperature - - Respiratory Rate - - Oxygen Saturation 100% 07/29/2017 3:05 PM SAXOPHONE ASSEMBLER Inhaled Oxygen Concentration - - Weight - - Height - - Body Mass Index - - documented in this encounter Progress Notes Brent Amos, MATEUSZS - 07/29/2017 3:00 PM CST ORAL SURGERY CONSULT NOTE NAME: Juliette Gaming : 1990 DOS: 07/29/2017 REFERRAL: Madison Kirk PRIMARY PHYSICIAN: Elaine Shultz MD CHIEF COMPLAINT: Chief Complaint Patient presents with ??? Oral Surgical Services lesion consult ID: [id number] y.o. female, ASA 2 PAST MEDICAL HISTORY: Past Medical History: Diagnosis Date ??? Depression (HRC) ??? Dry mouth ??? Gastric reflux ??? Hypercholesterolemia ??? Joint disorder ??? Joint pain saw rheum, on plaquenil ??? Major depressive disorder, single episode, moderate (HRC) 02/07/2010 situational PROBLEM LIST: Patient Active Problem List Diagnosis ??? Chronic rhinitis ??? Cough ??? Contraceptive surveillance ??? Insomnia ??? Abnormal TSH (HRC) ??? Familial hyperlipidemia (HRC) ??? Undifferentiated connective tissue disease (HRC) ??? Cervical cancer screening MEDS: Outpatient Prescriptions as of 07/29/2017: etonogestrel (NEXPLANON) 68 MG implant Inject 68 mg subcutaneously continuous. Disp: Rfl: fexofenadine (PATRICIA) 180 MG tablet Take 180 mg by mouth daily as needed for Other. Disp: Rfl: fluticasone (FLONASE) 50 MCG/ACT nasal solution APPLY OR INSTILL 1 SPRAY INTO BOTH NOSTRILS DAILY. Disp: 48 g Rfl: 1 hydroxychloroquine (PLAQUENIL) 200 MG tablet TAKE 1 TAB BY MOUTH TWO TIMES A DAY. Disp: 180 Tab Rfl:2 omeprazole (PRILOSEC) 20 MG capsule Take 1 Cap by mouth two times a day before meals. Take 30-60 minutes before breakfast and evening meal Disp: 180 Cap Rfl: 3 No current facility-administered medications on file as of 07/29/2017. ALLERGIES: Review of patient's allergies indicates no known allergies. PAST SURGICAL HISTORY: Past Surgical History: Procedure Laterality Date ??? COLONOSCOPY 2016 ??? EXTRACT, WISDOM/SINGLE TOOTH ??? UPPER GI ENDOSCOPY 2017 gastritis -No surgical or anesthetic complications. (no family history of GA complications) SOCIAL HISTORY: 1. Tobacco: History Smoking Status ??? Former Smoker Smokeless Tobacco ??? Never Used 2. Alcohol: History Alcohol Use ??? 0.5 oz/week ??? 1 Standard drinks or equivalent per week Comment: soc 3. Drug use: History Drug Use No Vitals: 07/29/17 1505 BP: 119/68 Pulse: 75 EXAMINATION: -VITAL SIGNS:BP 119/68 Pulse 75 SpO2 100% ??? PAIN: 0/10 ??? HEENT: There is no cervical lymphadenopathy, masses, or trismus. There is no pain to palpation of the bilateral TMJs or muscles of mastication. -TMJ: The TMJs have normal range of motion and are without clicks, pops, or crepitus. ??? AIRWAY: Mallampati 1 ??? INTRAORALLY, the patient has good oral hygiene. The occlusion is in maximum intercuspation. The floor mouth is soft and nontender. There are no intraoral soft tissue lesions noted. The right palatal gingiva near teeth 4, 5 has a small 3-4 mm, pink, raised, round, soft lesion ASSESSMENT: Juliette Gaming is a 27 y.o. female, ASA 2, with fibroma right palatal area 4, 5. PLAN: Discussed with Juliette her treatment options including observation. Juliette has decided on leaving it as. CONSENT: Reviewed treatment options including no treatment. Risks associated with procedure were discussed with the patient including: Pain, swelling, bleeding, infection, damage to adjacent teeth/softtissue, need for additional procedures, and unforeseen complications. Questions were invited and answered and the patient elected to proceed with treatment as planned. Brent Amos DDS 07/29/2017, 4:51 PM This note was dictated with the aid of [employer]ged[employer] voice recognition software and may contain word substitution or spelling errors. Completed dental procedures in this visit There are no completed dental procedures in this visit. PHONE ASSEMBLER documented in this encounter Plan of Treatment Not on filedocumented as of this encounter Visit Diagnoses Diagnosis Fibroma - Primary Other benign neoplasm of connective and other soft tissue of unspecified site documented in this encounter
--- OUTSIDE RECORDS SUMMARY | 2022-03-10 15:57 | XMS_ITS | Encounter Summary ---
:1990 Author Organization [facility] Address [address] [place] [address] Care Team Providers Name Role Phone Unavailable Primary Care Provider Unavailable Encounter Details Date Type Department Care Team Description 04/19/2017 Telephone [facility] Orlando Lester MD [address] [place], [place] [address] Social History Tobacco Use Types Packs/Day Years Used Date Smoking Tobacco: Former Smokeless Tobacco: Never Comments: social smoker Alcohol [...] documented as of this encounter Nursing Notes Rajwinder Garcia LPN - 04/20/2017 8:28 AM CDT Spoke with patient and she verbalized understanding. Rajwinder Garcia LPN Shikha Son LPN - 04/20/2017 8:24 AM CDT Called and left message for client to return phone call. Awaiting return call. Shikha Son LPN Orlando Mckinley MD - 04/19/2017 3:37 PM CDT Blood tests normal Except inflammation tests. Still up sligthly, but better. No change in plans. TH documented in this encounter Plan of Treatment Not on filedocumented as of this encounter Visit Diagnoses Not on filedocumented in this encounter
--- OUTSIDE RECORDS SUMMARY | 2022-03-10 15:57 | XMS_ITS | Encounter Summary ---
:1990 [facility] Address [address] [place] [address] Care Team Providers Name Role Phone Unavailable Primary Care Provider Unavailable Encounter Details Date Type Department Care Team Description 08/10/2016 Lab Visit [facility] Gastroesophageal reflux [address] disease, [place] [address] not specified [phone] Social History Tobacco Use Types Packs/Day Years [...] documented as of this encounter Progress Notes Terri Knott, RN - 08/11/2016 3:52 PM SHOE SINGER Quick Note: Result letter mailed to patient. Terri Knott LPN 08/11/2016, 3:52 PM SINGER Lorrie Bhat, TAX SERVICES PROFESSIONAL, TRIMMING MACHINE SET UP OPERATOR - 08/11/2016 2:37 PM SHOE SINGER Quick Note: H pylori stool test is negative. Please continue to follow the recommendations as discussed in the clinic. Lorrie Ferrari APRN, MATILDA SINGER documented in this encounter Plan of Treatment Not on filedocumented as of this encounter Procedures Procedure Name Priority Date/Time Associated Diagnosis Comme nts H. PYLORI ANTIGEN Routine 08/10/2016 8:26 Gastroesophageal ref lux Results for this FECES AM SHOE SINGER disease, esophagitis procedu re are in presence not specified the r esults section. documented in this encounter Results H. Pylori Antigen Feces (08/10/2016 8:26 AM SHOE SINGER) Component Value Ref Test Analysis Performed At [facility] Range Method Time Signature H Pylori [facility] Result LABORATORIES H Pylori (NOTE) [facility] Result HELICOBACTER PYLORI AG, EIA, STOOL ?? LABORATORIES ?? MICRO NUMBER: ?[id number] TEST STATUS: ? FINAL SPECIMEN SOURCE: ?? STOOL SPECIMEN QUALITY: ??ADEQUATE RESULT: ?Not Detected ?Antimicrobials, proton pump in hibitors, and ?bismuth preparations inhibit H . pylori and ?ingestion up to two week s prior to testing may ?cause false negative results. If clinically ?indicated the test shoul d be repeated on a new ?specimen obtained two weeks after discontinuing ?treatment. Test performed at [facility] [address] ??[id number] Director: MELVA SOTO MD Specimen Anatomical Collection Method Collection Time Receive d Time (Source) Location / / Volume Laterality Stool specimen 08/10/2016 8:26 AM 017 8:30 (specimen) SHOE SINGER AM SHOE SINGER Lorrie Bower APRN, MATILDA LAB_1 Performing Organization Address City/State/ZIP Code Phon e Number [facility] [phone] documented in this encounter Visit Diagnoses Diagnosis Gastroesophageal reflux disease, esophag itis presence not specified documented in this encounter
--- OUTSIDE RECORDS SUMMARY | 2022-03-10 15:57 | XMS_ITS | Encounter Summary ---
:1990 Author Organization [facility] Address [address], [place] [address] Care Team Providers Name Role Phone Unavailable Primary Care Provider Unavailable Reason for Visit Reason Comments Refill Encounter Details Date Type Department Care Team Description 11/09/2016 Refill [facility] [address] Bower, Refill [facility] C T TECH, EDIPHONE OPERATOR [address] [place] [address] [place] [address] [phone] (Wo rk) Social History Tobacco Use Types [...] documented as of this encounter Nursing Notes Junie Acuna, RN - 11/09/2016 2:33 PM CDT Medication was refilled on 11/02/16. Called [facility] pharmacy,spoke to a pharmacy staff member who affirmed that it was indeed refilled on 11/02/16 and to disregard the request. Junie Acuna RN 11/09/2016, 2:33 PM documented in this encounter Plan of Treatment Not on filedocumented as of this encounter Visit Diagnoses Not on filedocumented in this encounter
--- OUTSIDE RECORDS SUMMARY | 2022-03-10 15:57 | XMS_ITS | Encounter Summary ---
:1990 Author Organization [facility] Address [address] [address] Care Team Providers Name Role Phone Unavailable Primary Care Provider Unavailable Reason for Visit Reason Comments Skin Check Encounter Details Date Type Department Care Team Description 07/09/2017 Office Visit [facility] Lexi Watkins Mult iple melanocytic nevi (Primary Dx); [address] [facility] MD Screening for malignant neoplasm of skin ; [address] [place] [address] [place] [phone] Social History Tobacco Use Types Packs/Day Years [...] as of this encounter Patient Instructions Patient InstructionsEvie Fischer LPN - 07/09/2017 12:45 PM CST I recommend diligent sun protection (including sunscreen SPF 30 or higher, hat, sunglasses, long sleeved clothing, avoidance of tanning beds, avoidance of sun between 10 am and 4 pm), monthly self skinexam, and return to clinic as needed for any new or changing growths. GE RELEASE MANAGER documented in this encounter Progress Notes Lexi Watkins MD - 07/09/2017 12:45 PM CST Subjective: Juliette Gaming is a 26 y.o. old female who presents for skin check Status: New Referred by: SELF, A REFERRAL Patient presents today to have her moles looked at. None are new or changing. None are symptomatic. She is careful with sun protection. No personal history of skin cancer or atypical nevi. She has noticed a skin tag on right axilla. Not symptomatic. Cutaneous ROS: History of blistering sunburns: no History of tanning bed use: no Sun protection habits: SPF Personal history of skin cancer: no History of other skin conditions: no PMH: has a past medical history of Depression (HRC); Dry mouth; Gastric reflux; Hypercholesterolemia; Joint disorder; Joint pain; and Major depressive disorder, single episode, moderate (HRC) (02/07/2010). Current Outpatient Prescriptions Medication Sig Dispense Refill ??? etonogestrel (NEXPLANON) [...] MOUTH TWO TIMES A DAY. 180 Tab 2 ??? omeprazole (PRILOSEC) 20 MG capsule Take 1 Cap by mouth two times a day before meals. Take 30-60minutes before breakfast and evening meal 180 Cap 3 No current facility-administered medications for this visit. Allergies: has No Known Allergies. Family history of melanoma: No. 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 Full skin examination was performed of the patient's scalp, face, neck, chest, abdomen, back, right and left upper extremities including the hands, buttocks, and right and left lower extremities including the feet. Examination of genitalia deferred. Laboy type II skin with minimal actinic damage. There are scattered evenly pigmented alexis-brown symmetric macules consistent with benign melanocytic nevi on the trunk and extremities, some with slight clinical atypia but uniform with respect to each other. There is a flesh-colored pedunculated papule consistent with a skin tag on the right axilla. Assessment/Plan: 1. Multiple melanocytic nevi 2. Skin cancer screening I recommend diligent sun protection (including sunscreen SPF 30 or higher, hat, sunglasses, long sleeved clothing, avoidance of tanning beds, avoidance of sun between 10 am and 4 pm), monthly self skinexam, and return to clinic as needed for any new or changing growths. The A,B,C,D,E's of melanoma were discussed in written and verbal form. 3. Skin tag, right axilla Currently asymptomatic. Discussed options for removal. Recommend observation This note was created using speech-recognition software and may contain unintended word substitutions. GE RELEASE MANAGER documented in this encounter Plan of Treatment Not on filedocumented as of this encounter Visit Diagnoses Diagnosis Multiple melanocytic nevi - Primary Screening for malignant neoplasm of skin Screening for malignant neoplasm of the skin Skin tag Unspecified hypertrophic and atrophic co ndition of skin documented in this encounter
--- OUTSIDE RECORDS SUMMARY | 2022-03-10 15:57 | XMS_ITS | Encounter Summary ---
:1990 Author Organization [facility] Address [address] [place] [address] Care Team Providers Name Role Phone Unavailable Primary Care Provider Unavailable Reason for Referral Consult/Transfer Care (Routine) - Closed Specialty Diagnoses / Procedures Referred By Contact Refer red To Contact Diagnoses Encounter for long-term (current) [place] [address] [address] [facility] [place] [address] 3 Referral ID Status Reason Start Date Expiration Date Visits Requ ested Visits Authorized [id number] Closed 03/19/2017 04/19/2017 1 1 Scheduling Instructions Your provider has recommended you to fol low up with your Primary Literacy Consultant. If you are currently seeing a [facility] provider for your primary care needs, a change management administrator will contact you within the nd xt 3 business days to assist you in setting up this appointment. To schedule your ap pointment you may call [phone]. We suggest you call your [employer] about your coverage and benefits for this service. Encounter Details Date Type Department Care Team Description 03/19/2017 Refill Order [facility] [place] Practice [address] [address] [place] [address] [place] [address] [phone] Social History Tobacco Use Types Packs/Day Years [...] of this encounter Nursing Notes Interface, Out Eco Cuizine Prov Query - 03/19/2017 9:12 AM CDT SCHEDULE THE FOLLOWING: - OFFICE VISIT BY: Now (Due as of 07/24/2016 for fluticasone (FLONASE) 50 MCG/ACT nasal solution) - LAST QUALIFYING VISIT IN FAMILY PRACTICE: 07/30/2015 - NEXT SCHEDULED VISIT: None - NEXT LAB APPOINTMENT: None We recently received a refill request on one of your medications. While reviewing your chart, we noticed that you are going to be due for a visit with your provider within the next 3 months. You can schedule your appointment online at [employer] or by calling the appointment center at the phone number listed above. Thank you for choosing [facility]. Lissy Renner RN [facility] Nurses Powered by [employer], Reference: [id number], 03/19/2017 9:12:50 AM CDT, Pool: TAMEKA BATISTA RN ([id number]) documented in this encounter Plan of Treatment Scheduled Referrals Name Type Priority Associated Diagnoses Order S donna Primary Care Follow-Up Referral Routine Encounter for long -term Ordered: 03/19/2017 (current) use of medications documented as of this encounter Visit Diagnoses Diagnosis Encounter for long-term (current) use of medications - Primary Encounter for long-term (current) use of other medications documented in this encounter
--- OUTSIDE RECORDS SUMMARY | 2022-03-10 15:57 | XMS_ITS | Encounter Summary ---
:1990 Author Organization [facility] Address [address] [place] [address] Care Team Providers Name Role Phone Unavailable Primary Care Provider Unavailable Encounter Details Date Type Department Care Team Description 05/04/2017 [facility] Visit [facility] Undi fferentiated connective [facility] tissue disease (HRC) [address] (Primary Dx) [place] [address] Social History Tobacco Use Types Packs/Day Years [...] documented as of this encounter Progress Notes Fara Crowell COA - 05/04/2017 8:16 AM CDT Visual Field: Visual Field 10-[address] Travis for DX undifferentiated connective tissue disease with high risk medication use performed by HERBERT Quiroga Patient currently taking the following drops: No drops No need to call with results - patient seeing provider today. HERBERT Quiroga documented in this encounter Plan of Treatment Not on filedocumented as of this encounter Visit Diagnoses Diagnosis Undifferentiated connective tissue disea se (HRC) - Primary Unspecified diffuse connective tissue di sease documented in this encounter
--- OUTSIDE RECORDS SUMMARY | 2022-03-10 15:57 | XMS_ITS | Encounter Summary ---
:1990 Author Organization [facility] Address [address] [place] [address] Care Team Providers Name Role Phone Unavailable Primary Care Provider Unavailable Reason for Visit Reason Onset Date Comments Refill 01/28/2017 OMEPRAZOLE Encounter Details Date Type Department Care Team Description 01/28/2017 Refill [facility] [address] Dex hBat (OMEPRAZOLE) [facility] Lorrie M, AGILE DEVELOPER, NUTRITION COUNSELOR [address] [place] [address] [place] [address] [phone] (Wo rk) Social History Tobacco Use Types [...] documented as of this encounter Nursing Notes Kiley Jacobsen - 02/16/2017 10:48 AM CDT Prior Authorization for Omeprazole 20mg has been approved through [employer]. Approval is granted for/until February 11, 2018 with approval number n/a. Patient has been contacted to inform them of PA approval and to determine their choice for receiving the prescription. Left voicemail message with patient to inform them of PA approval on 02/16/17. Kiley Ash RN - 01/28/2017 3:17 PM CDT Refilled per standing orders. Kiley Ash RN 01/28/2017, 3:18 PM Tien Cary LPN - 01/28/2017 11:27 AM CDT Last office visit: 11/13/2016 Next office visit: None Requested Medication: Omeprazole Last refill: 11/13/2016 #60 x2 refill Patient requests 90 day supply Notes from previous visit: 26-year-old female with gastroesophageal reflux disease. Recommend increasing omeprazole to twice a day. She may use Zantac as needed at bedtime. We reviewed antireflux measures. I have encouraged her to continue to follow closely and contact us in a couple of weeks with an update on her symptoms. Consider changing to a different PPI and esophageal manometry and pH study in the future. Routed to RN for Lorrie Ferrari NP for advisement per protocol. Tien Cary LPN 01/28/2017, 11:27 AM documented in this encounter Plan of Treatment Not on filedocumented as of this encounter Visit Diagnoses Not on filedocumented in this encounter
--- OUTSIDE RECORDS SUMMARY | 2022-03-10 15:57 | XMS_ITS | Encounter Summary ---
:1990 Author [facility] Address [address] [address] Care Team Providers Name Role Phone Unavailable Primary Care Provider Unavailable Reason for Visit Reason Comments Routine Eye Exam Pt here for routine eye exam , MATT 04/14/2016, DVA and NVA OU stable, Fatige/tired eyes OU at time s, No dryness, Generic Antihistamine/Redness Reliev er gtt OU prn Spring/Fall for itching/redness. Plaquenil Check Plaquenil 200 mg daily x 6 m onths, 400 mg x 1 year previously, pt taking for connective tissue disease Encounter Details Date Type Department Care Team Description 05/04/2017 Office Visit [facility] Tony Travis Undiff erentiated connective tissue disease (HRC) (Primary Dx); [address] [facility] OD Long-term use of Plaquenil; [address] Myopia of right eye; [place] [address] [place], [place] Regular astigmatism of left eye [phone] Social History Tobacco Use Types Packs/Day Years [...] this encounter Patient Instructions Patient InstructionsTony Travis, AFTAB - 05/04/2017 8:20 AM CDT Your eyes look healthy and stable. Use Ketotifen Fumarate drops twice daily during allergy season (Alaway and Zatidor are common brands) Return 1 year for 10-2,OCT, and eye exam documented in this encounter Progress Notes Tony Travis OD - 05/04/2017 2:01 PM CDT HPI Chief Complaint Patient presents with ??? Routine Eye Exam Pt here for routine eye exam, MATT 04/14/2016, DVA and NVA OU stable, Fatige/tired eyes OU at times,No dryness, Generic Antihistamine/Redness Reliever gtt OU prn Spring/Fall for itching/redness. ??? Plaquenil Check Plaquenil 200 mg daily x 6 months, 400 mg x 1 year previously, pt taking for connective tissue disease History Reviewed Today's rooming note, PMH, ROS, Family History, Social History, Surgical History, Meds, Allergies, Vitals and Relevant Results Patient displays normal affect and orientation with no signs of distress 10-2 OD: Reliable, no plaquenil defects OS: Reliable, no plaquenil defects Assessment 1) Undifferentiated connective tissue disease -plaquenil 2.29 mg/kg/day x 6 mo, double that dose for 1 year prior -low risk, no sign of toxicity 2) Myopia OD, Astigmatism OS Plan Spectacle Prescription given Return to clinic in 1 year(s) for HVF, OCT, eye exam. Tony Travis, AFTAB documented in this encounter Nursing Notes Fara Crowell COA - 05/04/2017 8:20 AM CDT Visual Field: Interpretation: 10-2 Performed by HERBERT Quiroga for dx undifferenticated connective tissue diease with high risk medication use documented in this encounter Plan of Treatment Not on filedocumented as of this encounter Visit Diagnoses Diagnosis Undifferentiated connective tissue disea se (HRC) - Primary Unspecified diffuse connective tissue di sease Long-term use of Plaquenil Myopia of right eye Myopia Regular astigmatism of left eye Regular astigmatism documented in this encounter
--- OUTSIDE RECORDS SUMMARY | 2022-03-10 15:57 | XMS_ITS | Encounter Summary ---
:1990 Author Organization [facility] Address [address] [place] [address] Care Team Providers Name Role Phone Victor Manuel Clinician Primary Care Provider Unavailable Encounter Details Date Type Department Care Team Description 11/06/2016 Consent for [facility] Department RH INFORM ED CONSENT Procedure/Treatment RECORD Social History Tobacco Use Types Packs/Day Years [...] on filedocumented in this encounter Care Teams Guyline Operator Relationship Specialty Start Date End Date Nemesio Rush PCP - General 11/22/[address] [place] [id number] documented as of this encounter
--- OUTSIDE RECORDS SUMMARY | 2022-03-10 15:57 | XMS_ITS | Encounter Summary ---
:1990 Author Organization [facility] Address [address] [address] Care Team Providers Name Role Phone Unavailable Primary Care Provider Unavailable Reason for Visit Reason Comments Refill hydroxychloroquine (PLAQUENI L) 200 MG tablet [Pharmacy Med Name: HYDROXYCHLOROQUINE 200 MG TA B] Encounter Details Date Type Department Care Team Description 03/01/2017 Refill [facility] [address] Orlando Mckinley (hydroxychloroquine Rheumatology [facility] MD Charles (PLAQUENIL) [address] [facility] [Pharmacy Med Name: [place] [address] HYDROXYCHLOROQUINE 200 MG [phone] TAB]) Social History Tobacco Use Types Packs/Day Years [...] Notes Interface, Out Surescripts Prov Query - 03/01/2017 12:38 AM CDT hydroxychloroquine (PLAQUENIL) 200 MG tablet [Pharmacy Med Name: HYDROXYCHLOROQUINE 200 MG TAB] Protocol: Hydroxychloroquine -> The requested medication was previously set to Print by an non-prescriber. -> Ensure the patient had an Eye Exam in the last 12 months. -> The requested sig has changed from the last order. -> Refill x 3 months (until due for an office visit) Last qualifying visit: 05/25/2016 (in Rheumatology) Next scheduled visit: 04/19/2017 (in Rheumatology) Last ordered by ORLANDO MCKINLEY: 05/25/2016 (280 days ago as Print on 05/25/2016 by ORLANDO MCKINLEY), Sig: take 1 tab by mouth daily. (changed) Powered by [employer], Reference: [id number], 03/01/2017 12:38:52 AM CDT, Pool: Arlen Perry Care Team ([id number]) documented in this encounter Plan of Treatment Not on filedocumented as of this encounter Visit Diagnoses Not on filedocumented in this encounter
--- OUTSIDE RECORDS SUMMARY | 2022-03-10 15:57 | XMS_ITS | Encounter Summary ---
:1990 Author Organization [facility] Address [address], [place] [address] Care Team Providers Name Role Phone Unavailable Primary Care Provider Unavailable Reason for Visit Reason Comments Refill hydroxychloroquine (PLAQUENI L) 200 MG tablet [Pharmacy Med Name: HYDROXYCHLOROQUINE 200 MG TA B] Encounter Details Date Type Department Care Team Description 06/04/2016 Refill [facility] [address] Mckinley (hydroxychloroquine Rhe[facility] MD Charles (PLAQUENIL) 200 MG tablet 401 [facility] [Pharmacy Med Name: [place] [address] HYDROXYCHLOROQUINE 200 MG [phone] TAB]) Social History Tobacco Use Types Packs/Day [...] Notes Interface, Out Surescripts Prov Query - 06/04/2016 5:46 PM CDT hydroxychloroquine (PLAQUENIL) 200 MG tablet [Pharmacy Med Name: HYDROXYCHLOROQUINE 200 MG TAB] Protocol: Hydroxychloroquine -> The patient is requesting refills too soon, the current prescription is due to run out on 05/20/2017. -> Ensure the patient had an Eye Exam in the last 12 months. -> Refill x 12 months (until due for an office visit) Last qualifying visit: 05/25/2016 (in Rheumatology) Next scheduled visit: None Last ordered by ORLANDO MCKINLEY M: 05/25/2016 (10 days ago) QTY: 90, Refills: 3, Sig: take 1 tab by mouth daily. (changed) Powered by [employer], Reference: [id number], 06/04/2016 5:46:21 PM CDT, Pool: Arlen Perry Care Team ([id number]) documented in this encounter Plan of Treatment Not on filedocumented as of this encounter Visit Diagnoses Not on filedocumented in this encounter
--- OUTSIDE RECORDS SUMMARY | 2022-03-10 15:57 | XMS_ITS | Encounter Summary ---
:1990 Author Organization [facility] Address [address] [place] [address] Care Team Providers Name Role Phone [facility], Clinician Primary Care Provider Unavailable Encounter Details Date Type Department Care Team Description 07/02/2016 [facility] 435 Elaine Shultz MD [facility] [address] [address]OPEZ [address] [place] [address] [place] [address] [phone] Social History Tobacco Use Types Packs/Day Years [...] encounter Nursing Notes [place] West CMA - 07/02/2016 8:40 AM CST Letter sent to pt. [place] West CMA 07/02/2016, 8:40 AM MAINTENANCE documented in this encounter Plan of Treatment Not on filedocumented as of this encounter Visit Diagnoses Diagnosis Encounter for long-term (current) use of medications - Primary Encounter for long-term (current) use of other medications documented in this encounter Care Teams Director [facility] Relationship Specialty Start Date End Date Nemesio Rush PCP - General 11/22/[address] [place] [address] documented as of this encounter
--- OUTSIDE RECORDS SUMMARY | 2022-03-10 15:57 | XMS_ITS | Encounter Summary ---
:1990 Author Organization [facility] Address [address], [place] [address] Care Team Providers Name Role Phone Unavailable Primary Care Provider Unavailable Reason for Visit Reason Comments Revisit Encounter Details Date Type Department Care Team Description 11/13/2016 Office Visit [facility] Mian Bhat oesophageal reflux [address] [facility] Lorrie Soto APRN, diseas e with esophagitis Clinic NOVELTY [employer] (Primary Dx) [address] [place] [address] [place], [place] [phone] Social History Tobacco Use Types Packs/Day Years [...] Sign Reading Time Taken Comments Blood Pressure 107/73 11/13/2016 8:14 AM CDT Pulse 80 11/13/2016 8:14 AM CDT Temperature 36.2 ??C (97.2 ??F) 11/13/2016 8:14 AM CDT Respiratory Rate 16 11/13/2016 8:14 AM CDT Oxygen Saturation - - Inhaled Oxygen Concentration - - Weight 83.9 kg (185 lb) 11/13/2016 8:14 AM CDT Height 156.2 cm (5' 1.5) 11/13/2016 8:14 AM CDT Body Mass Index 34.39 11/13/2016 8:14 AM CDT documented in this encounter Patient Instructions Patient InstructionsLorrie Bhat APRN, CNP - 11/13/2016 8:44 AM CDT Increase Omeprazole to two times a day. Take 30-60 minutes before breakfast and evening meal You may use Zantac as needed at bedtime Follow anti reflux measures Please contact us with an update in a couple weeks Call with questions or concerns [phone] option #3. Lorrie Ferrari APRN, CNP documented in this encounter Progress Notes Lorrie Bhat APRN, CNP - 11/13/2016 8:58 AM CDT GASTROENTEROLOGY FOLLOWUP NOTE DATE OF SERVICE: 11/13/2016 Juliette Gaming is a 26 y.o. old female who is here for a follow-up appointment regarding gastroesophageal reflux disease. HISTORY OF PRESENTING ILLNESS: She recently had an upper endoscopy and was noted to have esophagitis. Biopsies of the esophagus were unremarkable. Biopsies of the stomach showed chronic gastritis without activity, negative Helicobacter pylori and biopsies of the duodenum were unremarkable. She has been taking omeprazole once a day and finds that it does not work as well as Zantac. She has difficulty swallowing the capsule which is not a new problem for her. She breaks it opened instead. She reports that by dinnertime, medication seems to be wearing off and she has more problems with acid regurgitation/reflux. She is drinking a cold or cup of coffee usually once a day. Previously she was drinking 2-3 times a day. She is avoiding spicy foods and greasy foods. She also is avoiding overeating. No nausea or vomiting. No abdominal pain. No black or bloody stools. She is not losing weight. She does nottake nonsteroidal anti- inflammatory drugs. Helicobacter pylori antigen negative REVIEW OF SYSTEMS: Arthralgias are well-controlled with plaque were normal. The remainder of complete review of systems is negative. MEDICATIONS: Patient has a current medication list which includes the following prescription(s): fexofenadine, fluticasone, hydroxychloroquine, and omeprazole. ALLERGIES: Review of patient's allergies indicates no known allergies. PHYSICAL EXAM: Patient is alert, awake, oriented and in no acute distress. BP 107/73 mmHg Pulse 80 Temp(Src) 97.2 ??F (36.2 ??C) (Tympanic) Resp 16 Ht 5' 1.5 (1.562 m) Wt 185 lb (83.915 kg) BMI 34.39 kg/m2 HEAD: Atraumatic EYES: Non-icteric Results for orders placed or performed in visit on 12/16/11 HEMOGRAM/PLTS Result Value Ref Range WBC 5.0 4.0 - 11.0 k/ul RBC 4.20 4.0 - 5.2 M/ul Hemoglobin 11.7 (L) 12.0 - 16.0 g/dl HCT 35.7 (L) 36.0 - 46.0 % MCV 85.0 80 - 100 fl MCH 27.9 26 - 34 pg MCHC 32.8 32 - 36 g/dl RDW 12.7 11.5 - 14.5 % Platelets 285 150 - 450 k/ul Results for orders placed or performed in visit on 02/23/14 HEMOGRAM/PLTS/DIFF [3656] Result Value Ref Range WBC 8.6 4.0 - 11.0 k/ul RBC 4.21 4.0 - 5.2 M/ul Hemoglobin 11.7 (L) 12.0 - 16.0 g/dl HCT 35.4 (L) 36.0 - 46.0 % MCV 84.1 80 - 100 fl MCH 27.8 26 - 34 pg MCHC 33.1 32 - 36 g/dl RDW 12.9 11.5 - 14.5 % Platelets 353 150 - 450 k/ul PMN/Band 69 % Lymph 24 % Emmet 6 % Eos 1 % Baso 0 % PMN Absolute 5.9 1.8 - 7.7 k/ul Lymph Absolute 2.1 1.0 - 4.8 k/ul Emmet Absolute 0.5 0.1 - 0.7 k/ul Eos Absolute 0.1 0.0 - 0.5 k/ul Baso Absolute 0.0 0.0 - 0.2 k/ul Immature Gran 0 % Imm Gran Absolute 0.0 0 k/ul ASSESSMENT AND PLAN: 26-year-old female with gastroesophageal reflux disease. Recommend increasing omeprazole to twice a day. She may use Zantac as needed at bedtime. We reviewed antireflux measures. I have encouraged her to continue to follow closely and contact us in a couple of weeks with an update on her symptoms. Consider changing to a different PPI and esophageal manometry and pH study in the future. Lorrie Ferrari APRN, MATILDA 11/13/2016, 8:58 AM documented in this encounter Plan of Treatment Not on filedocumented as of this encounter Visit Diagnoses Diagnosis Gastroesophageal reflux disease with eso phagitis - Primary documented in this encounter
--- OUTSIDE RECORDS SUMMARY | 2022-03-10 15:57 | XMS_ITS | Encounter Summary ---
:1990 Author Organization [facility] Address [address], [place] [address] Care Team Providers Name Role Phone Unavailable Primary Care Provider Unavailable Reason for Visit Reason Comments Refill Encounter Details Date Type Department Care Team Description 11/01/2016 Refill [facility] [address] Oma Bhat, Refill [facility] IN HOME AIDE, ACCREDITED LEGAL SECRETARY [address] [place] [address] [place] [address] [phone] (Wo rk) Social History Tobacco Use Types [...] encounter Nursing Notes Nadia Garces RN - 11/02/2016 9:44 AM CDT Refill request for Prilosec Last OV 08/06/16 with Denise Bower Future appt 11/06/16 with Hakeem for EGD and 11/13/16 with Lorrie Bower ASSESSMENT AND PLAN: ?? 26 year old female with GERD.?? Persistent symptoms despite daily H2 nora.?? Will check stool forHelicobacter pylori antigen.?? We reviewed antireflux measures today.?? Recommend stopping Zantac and starting omeprazole but she was advised to wait on starting this until she collects her stool specimen.?? If Helicobacter pylori testing is positive, we will treat accordingly.?? If negative, and symptoms persist, recommend upper endoscopy for further evaluation.?? Of note, she reports that she had nausea and vomiting after her colonoscopy and felt it was related to medications.?? We will note this in her chart and she may be given an antiemetic prior to her next procedure.?? She was scheduled for return visit to discuss response to treatment and results of testing.?? Lorrie Ferrari, IN HOME AIDE, ACCREDITED LEGAL SECRETARY?? 08/06/2016, 9:06 AM Refilled Prilosec per S.O. Protocol Nadia Garces RN 11/02/2016, 9:46 AM documented in this encounter Plan of Treatment Not on filedocumented as of this encounter Visit Diagnoses Not on filedocumented in this encounter
--- OUTSIDE RECORDS SUMMARY | 2022-03-10 15:57 | XMS_ITS | Encounter Summary ---
:1990 [facility] Address [address] [address] Care Team Providers Name Role Phone Unavailable Primary Care Provider Unavailable Reason for Visit Reason Comments APPOINTMENT REQUEST Encounter Details Date Type Department Care Team Description 10/05/2017 Telephone [facility] 401 Marcia Medeiros APPOINTMENT REQUEST Rheumatology Clinic MD Letty [address] [place] [address]. [address] [place] [address] [place], [place] [phone] (Wo rk) Social History Tobacco Use Types [...] documented as of this encounter Nursing Notes Latoya Gamble CMA - 10/05/2017 11:43 AM CST Cancel error for TE. D PREVENTION ANALYST documented in this encounter Plan of Treatment Not on filedocumented as of this encounter Visit Diagnoses Not on filedocumented in this encounter
--- OUTSIDE RECORDS SUMMARY | 2022-03-10 15:57 | XMS_ITS | Encounter Summary ---
:1990 Author Organization [facility] Address [address] [address] Care Team Providers Name Role Phone Unavailable Primary Care Provider Unavailable Reason for Visit Reason Comments Refill ranitidine Encounter Details Date Type Department Care Team Description 11/21/2016 Refill [facility] 435 Elaine Matute MD Refill (ranitidine) [facility] [address] [address]OPE[address] [facility] [place] [address] [place] [address] [phone] Social History Tobacco Use Types Packs/Day Years [...] Notes Interface, Out Surescripts Prov Query - 11/21/2016 5:42 PM CDT raNITIdine (ZANTAC) 150 MG tablet [Pharmacy Med Name: RANITIDINE 150 MG TABLET] Protocol: H2 Blockers -> This medication was discontinued on 11/06/2016 by CIARAN QUINTANILLA -> An office visit is overdue (performed 16 months ago, required every 12 months). Last qualifying visit: 07/30/2015 (in Family Practice) Next scheduled visit: None Last ordered by ELAINE MATUTE L: 09/30/2016 (52 days ago) QTY: 90, Refills: 0, Sig: take 1 tablet by mouth every morning. may take an additional dose at bedtime if needed (unchanged) Powered by [employer], Reference: [id number], 11/21/2016 5:42:30 PM CDT, [place]: TAMEKA BATISTA RN ([id number]) documented in this encounter Plan of Treatment Not on filedocumented as of this encounter Visit Diagnoses Not on filedocumented in this encounter
--- OUTSIDE RECORDS SUMMARY | 2022-03-10 15:57 | XMS_ITS | Encounter Summary ---
:1990 Author Organization 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 [place], [place] [id number] Social History Tobacco Use Types Packs/Day [...] Sign Reading Time Taken Comments Blood Pressure 96/66 05/03/2018 8:12 AM CDT Pulse 82 05/03/2018 8:12 AM CDT Temperature 36.9 ??C (98.5 ??F) 05/03/2018 8:12 AM CDT Respiratory Rate - - Oxygen Saturation - - Inhaled Oxygen Concentration - - Weight 90.4 kg (199 lb 6.4 oz) 05/03/2018 8:12 AM CDT Height - - Body Mass Index 37.68 04/28/2017 8:46 AM CDT documented in this encounter Patient Instructions Patient InstructionsKaitlyn Muhammad APRN, CNP - 05/03/2018 8:00 AM CDT Please see lab for blood draw. Please continue to take omeprazole daily with second dose as needed. Please start taking calcium and vitamin D supplement daily while taking omeprazole. You can try Vitafusion calcium and vitamin D gummies if calcium and vitamin D upset your stomach. Please try to avoid NSAIDs such as ibuprofen, aspirin, or Aleve. If you cannot avoid them, please make sure you are taking them with food. Please follow up in 1 year. Please call for further questions or concerns. You have been placed on Kaitlyn Muhammad NP wait list for May 2019. When the schedule does becomeavailable a letter will be sent to you in the mail. If you have any questions please call, . Kaitlyn Muhammad APRN, CNP 05/03/2018, 8:28 AM If you have any questions or concerns, please call [facility] at [phone]. documented in this encounter Progress Notes Kaitlyn Muhammad APRN, CNP - 05/03/2018 8:00 AM CDT CHIEF COMPLAINT Juliette Gaming is a 27 y.o. female who presents for follow up of previous visit for GERD HISTORY OF PRESENT ILLNESS Juliette is a very pleasant 26 y.o. female who is here for follow up from a previous visit in April of 2017 for GERD. She was initially seen by Lorrie Beavers???cesario Bueno for her symptoms. At that timeshe was having symptoms of acid reflux including epigastric pain and mild difficulty swallowing. At the time of her previous follow up in October of 2016 she was on omeprazole once a day with zantac as needed and this was mildly controlling her symptoms but not at the desired level. She was especially noticing symptoms around dinnertime when the medication seemed to be wearing off. An upper endoscopy showed esophagitis as well as chronic gastritis. Biopsies were negative for h.pylori and otherwise unremarkable. With her follow up appointment in April Juliette reported feeling well. She stated her symptoms were much better controlled since increasing the frequency of omeprazole to twice a day. She was no longer experiencing reflux symptoms and only required the zantac when she forgot to take the omeprazole.She was not experiencing nausea, vomiting, reflux symptoms, diarrhea, constipation, unintentional weight loss, melena, or hematochezia. Following this visit, she was recommended to take omeprazole twice per day as well as calcium and vitamin D to prevent bone loss with halfway PPI use. Today Juliette states she is doing well. She had been able to wean herself down to omeprazole once perday shortly after her last visit. She had an episode back in September in which she had abdominal pain and was seen in urgent care. Her ultrasound was negative at that time and it was suspected pain wasfrom an ulcer. Juliette notes increased stress, coffee intake, and ibuprofen use at that time. She wasgiven carafate liquid and increased her omeprazole use to twice per day for about one month. Pain resolved and she was able to wean herself back to taking omeprazole once per day. She is currently taking omeprazole once per day with an occasional second dose for increased reflux symptoms. She has not been taking calcium or vitamin D because they upset her stomach. She is otherwise doing well with no other GI questions or concerns. Past Medical History: Diagnosis Date ??? Depression ([facility]) ??? Dry mouth ??? Gastric reflux ??? Hypercholesterolemia ??? Joint disorder ??? Joint pain saw rheum, on plaquenil ??? Major depressive disorder, single episode, moderate ([facility]) 02/07/2010 situational Past Surgical History: Procedure Laterality Date ??? COLONOSCOPY 2015 ??? EXTRACT, WISDOM/SINGLE TOOTH ??? UPPER GI ENDOSCOPY 2016 gastritis Family History Problem Relation Age of Onset ??? Hyperlipidemia Mother ??? Other Father Possible lactose intolerance ??? Anxiety Father ??? Glaucoma Paternal Grandmother ??? Coronary Artery Disease Paternal Grandfather ??? Alzheimer's Paternal Grandfather ??? Asthma Paternal Grandfather ??? Other Maternal Grandmother arthritis ??? Coronary Artery Disease Maternal Grandfather [place] in his 40s ??? Cancer, Breast Negative Family History ??? Cancer, Colon Negative Family History ??? Cancer, Ovary Negative Family History ??? Macular Degeneration Negative Family History ??? Retinal Detachment Negative Family History Social History Social History ??? Marital status: Significant Other/Partner Spouse name: N/A ??? Number of children: N/A ??? Years of education: N/A Occupational History ??? 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 Student Social History Main Topics ??? Smoking status: Former Smoker ??? Smokeless tobacco: Never Used ??? Alcohol use 0.5 oz/week 1 Standard drinks or equivalent per week Comment: soc ??? Drug use: No ??? Sexual activity: Yes Partners: Male control/ protection: Implant Comment: Nexplanon inserted 03/26/2017 Other Topics Concern ??? Not on file Social History Narrative Outpatient Medications Prior to Visit Medication Sig Dispense Refill ??? etonogestrel (NEXPLANON) [...] and evening meal 180 Cap 3 No facility-administered medications prior to visit. REVIEW OF SYSTEMS Skin: negative Eyes: negative Ears/Nose/Throat: negative Respiratory: negative Cardiovascular: negative Gastrointestinal: as stated in HPI, otherwise negative Genitourinary: negative Musculoskeletal: joint pain currently being worked up with rheumatology Neurologic: negative Psychiatric: negative Hematologic/Lymphatic/Immunologic: negative Endocrine: negative PHYSICAL EXAMINATION BP 96/66 Pulse 82 Temp 98.5 ??F (36.9 ??C) (Tympanic) Wt 199 lb 6.4 oz (90.4 kg) BMI 37.68 kg/m2 General appearance: stated age, healthy, alert, in no distress Skin: Skin color, texture, turgor normal. No rashes or lesions. Neck: negative, Neck supple. No adenopathy. Thyroid symmetric, normal size. Back: Back symmetric, no curvature. ROM normal. No CVA tenderness. Lungs: Clear to auscultation without rales or rhonchi, Good diaphragmatic excursion. Lungs clear. Heart: PMI normal. No lifts, heaves, or thrills. RRR. No murmurs, clicks or rubs Abdomen: Abdomen soft, non-tender without masses or organomegaly Extremities: Extremities normal. No deformities, edema, or skin discoloration Musculoskeletal: Spine ROM normal. Muscular strength intact. Peripheral pulses: radial=4/4, femoral=4/4, popliteal=4/4, dorsalis pedis=4/4, Neuro: Gait normal. Reflexes normal and symmetric. Sensation grossly intact. ASSESSMENT/PLAN GERD - improved Chronic gastritis Current use of PPI I am pleased to see Juliette is doing well. I suspect abdominal pain she experienced in September was secondary to an ulcer as she endorsed increased NSAID use, caffeine intake, and stress at that time, and her symptoms resolved with carafate and increasing omeprazole to twice per day. She was recommended to attempt to decrease NSAID use; however this may be difficult as she has joint pain for which sheis being worked up with rheumatology. She was told if she has to take NSAIDs to make sure she is taking them sparingly and with food. Labs were drawn to assess kidney function, magnesium, calcium, and vitamin D levels with halfway PPI use. She was told to try calcium and vitamin D gummies to see if this bothered her stomach less than the traditional supplements. She was asked to follow up in 1 yearand call for further questions or concerns. Kaitlyn Muhammad APRN, BUSINESS CENTER MANAGER 05/03/2018, 9:14 AM documented in this encounter Nursing Notes Fara Bennett - 05/03/2018 8:00 AM CDT Sent to [facility] through [facility], [place] [id number] Fara Bennett - 05/03/2018 8:00 AM CDT Per call to [employer] [facility] still in process, response expected by 05/23 Fara Bennett - 05/03/2018 8:00 AM CDT Prior Authorization for omeprazole 20 mg has been approved through [employer] insurance. Approval is granted for/until na with approval number na. Faxed the approval to the pharmacy with a note to call the patient when the medication is ready. documented in this encounter Plan of Treatment Not on filedocumented as of this encounter Results Magnesium (05/03/2018 8:40 AM CDT) athologist Signature Magnesium 2.5 1.6 - 2.6 [facility] mg/dl Specimen Anatomical Collection Method Collection Time Receive d Time (Source) Location / / Volume Laterality 05/03/2018 8:40 AM 8 8:41 CDT AM CDT Narrative [facility] - 05/03/2018 12:42 PM CDT Performed at [facility], [address] [place] [address] ??[id number] Kaitlyn Muhammad APRN, BUSINESS CENTER MANAGER LAB_1 Performing Organization Address City/State/ZIP Code Phon e Number [facility] [phone] (ABNORMAL) Vitamin D 25-Hydroxy, Total (05/03/2018 8:40 AM CDT) Analysis Performed At Patho logist Time Signature Vitamin 16 (L) 30 - 80 [facility] D,25-OH, Tot ng/mL [facility]IES Comment: Deficiency: ??< 20 ng/mL Insufficiency: ??20-29 ng/mL Optimum Level: ??30-80 ng/mL Possible Toxicity: > 80 ng/mL Specimen Anatomical Collection Method Collection Time Receive d Time (Source) Location / / Volume Laterality 05/03/2018 8:40 AM 8 8:41 CDT AM CDT Narrative [facility] - 05/03/2018 1:02 PM C DT Performed at [facility], [address] [place] [address] ??[id number] Kaitlyn Muhammad APRN, CNP LAB_1 Performing Organization Address [facility] Phon e Number [facility] [phone] Basic Metabolic Panel (05/03/2018 8:40 AM CDT) [facility] Signature Sodium 139 136 - 145 [facility] mmol/L [facility] Potassium 3.9 3.5 - 5.1 [facility] mmol/L [facility] Chloride 105 98 - 109 [facility] mmol/L [facility] CO2 26 20 - 29 [facility] mmol/L [facility] Anion Gap 8 7 - 16 [facility] (calc.) mmol/L [facility] Glucose 95 70 - 180 [facility] mg/dl [facility] Calcium 9.8 8.4 - 10.4 [facility] mg/dl [facility] BUN 10 7 - 26 [facility] mg/dl [facility] Creatinine 0.69 0.55 - [facility] 1.02 mg/dl [facility] GFR, Estimated >60 >60 [facility] ml/min/1.7 [facility] 3m2 GFR, Est., If >60 >60 [facility] Black ml/min/1.7 [facility] 3m2 Specimen Anatomical Collection Method Collection Time Receive d Time (Source) Location / / Volume Laterality 05/03/2018 8:40 AM 8 8:41 CDT AM CDT Narrative [facility] - 05/03/2018 12:42 PM CDT Performed at [facility], [address] [place] [address] ??[phone] Kaitlyn Muhammad APRN, CNP LAB_1 Performing Organization Address [facility] Phon e Number [facility] [phone] documented in this encounter Visit Diagnoses Diagnosis Gastroesophageal reflux disease, esophag itis presence not specified - Primary Chronic gastritis without bleeding, unsp ecified gastritis type Current use of proton pump inhibitor Gastroesophageal reflux disease, esophag itis presence not specified Chronic gastritis without bleeding, unsp ecified gastritis type documented in this encounter
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
--- OUTSIDE RECORDS SUMMARY | 2022-03-10 15:57 | XMS_ITS | Encounter Summary ---
:1990 Author Organization [facility] Address [address] [place] [address] Care Team Providers Name Role Phone Unavailable Primary Care Provider Unavailable Encounter Details Date Type Department Care Team Description 04/28/2017 Lab Visit [facility] Specialty Gas troesophageal reflux Center 435 Laborator y disease, esophagitis [address] presence not specified [place], [place] [id number] Social History Tobacco Use Types Packs/Day Years [...] documented as of this encounter Progress Notes Rani Chacon RN - 04/28/2017 3:42 PM CDT Result letter sent. Rani Chacon RN 04/28/2017, 3:42 PM Kaitlyn Mason APRN, LEAD ACCOUNTANT - 04/28/2017 1:55 PM CDT Juliette, Your vitamin D level is quite low. I recommend taking at least 800 to 1000 units of vitamin D3 per day and following up with your primary care provider in 3 months to monitor vitamin D levels. Please call for further questions or concerns. Kaitlyn Mason APRN, CNP 04/28/2017, 1:54 PM documented in this encounter Plan of Treatment Not on filedocumented as of this encounter Procedures Procedure Name Priority Date/Time Associated Diagnosis Comme nts VITAMIN D Routine 04/28/2017 9:13 Gastroesophageal reflux R esults for this 25-HYDROXY, TOTAL AM CDT disease, esophagitis pr ocedure are in presence not specified the r esults section. MAGNESIUM Routine 04/28/2017 9:13 Gastroesophageal reflux R esults for this AM CDT disease, esophagitis procedu re are in presence not specified the r esults section. documented in this encounter Results (ABNORMAL) Vitamin D 25-Hydroxy, Total (04/28/2017 9:13 AM CDT) Analysis Performed At Patho logist Time Signature Vitamin 17 (L) 30 - 80 [facility] D,25-OH, Tot ng/mL LABORATORIES Comment: Deficiency: ??< 20 ng/mL Insufficiency: ??20-29 ng/mL Optimum Level: ??30-80 ng/mL Possible Toxicity: > 80 ng/mL Specimen Anatomical Collection Method Collection Time Receive d Time (Source) Location / / Volume Laterality 04/28/2017 9:13 AM 7 9:21 CDT AM CDT Narrative [facility] - 04/28/2017 1:29 PM C DT Performed at [facility], [address] [place] [address] ??[id number] Kaitlyn Muhammad APRN, CNP LAB_1 Performing Organization Address City/State/ZIP Code Phon e Number [facility] [phone] Magnesium (04/28/2017 9:13 AM CDT) P athologist Signature Magnesium 2.3 1.6 - 2.6 [facility] mg/dl Specimen Anatomical Collection Method Collection Time Receive d Time (Source) Location / / Volume Laterality 04/28/2017 9:13 AM 7 9:21 CDT AM CDT Narrative [facility] - 04/28/2017 12:58 PM CDT Performed at [facility], [address] [place] [address] ??[id number] Kaitlyn Muhammad APRN, CNP LAB_1 Performing Organization Address City/State/ZIP Code Phon e Number [facility] [phone] documented in this encounter Visit Diagnoses Diagnosis Gastroesophageal reflux disease, esophag itis presence not specified documented in this encounter
--- OUTSIDE RECORDS SUMMARY | 2022-03-10 15:57 | XMS_ITS | Encounter Summary ---
:1990 Author Organization [facility] Address [address] [place] [address] Care Team Providers Name Role Phone Unavailable Primary Care Provider Unavailable Reason for Visit Reason Comments Refill raNITIdine (ZANTAC) 150 MG t ablet [Pharmacy Med Name: RANITIDINE 150 MG TABLET] Encounter Details Date Type Department Care Team Description 09/30/2016 Refill [facility] [address] Elaine Shultz MD Refill (raNITIdine [facility] [id number] JC SALDANA (ZANTAC) 150 MG tablet 435 [place] [address] [Pharmacy Med Name: [place] [address] RANITIDINE 150 MG [phone] TABLET]) Social History Tobacco Use Types Packs/Day [...] as of this encounter Nursing Notes Edith Ivan RN - 09/30/2016 9:14 AM CST per standing order Edith Ivan RN GOUGER Interface, Out Nitro PDF Query - 09/30/2016 1:40 AM CST raNITIdine (ZANTAC) 150 MG tablet [Pharmacy Med Name: RANITIDINE 150 MG TABLET] Protocol: H2 Blockers -> Refill x 3 months (courtesy refill. overdue for an office visit) -> Calculate quantity and refills manually. They could not be estimated due to missing or unreadable information. Last qualifying visit: 07/30/2015 (in Family Practice) Next scheduled visit: None Last ordered by ELAINE SHULTZ L: 07/02/2016 (90 days ago) QTY: 90, Refills: 0, Sig: take 1 tablet by mouth every morning. may take an additional dose at bedtime if needed (unchanged) Powered by [employer], Reference: [id number], 09/30/2016 1:40:51 AM ANNETTE, [place]: TAMEKA BATISTA RN ([id number]) GOUGER documented in this encounter Plan of Treatment Not on filedocumented as of this encounter Visit Diagnoses Not on filedocumented in this encounter
--- OUTSIDE RECORDS SUMMARY | 2022-03-10 15:57 | XMS_ITS | Encounter Summary ---
:1990 Author Organization [facility] Address [address] [address] Care Team Providers Name Role Phone Unavailable Primary Care Provider Unavailable Reason for Visit Reason Comments ROUTINE, FOLLOW-UP Encounter Details Date Type Department Care Team Description 05/25/2016 Office Visit [facility] Orlando Mckinley 401 Rhe[facility] [place] [facility] (Primary Dx) [address] [place] [address] Social History Tobacco Use Types Packs/Day [...] Sign Reading Time Taken Comments Blood Pressure 113/66 05/25/2016 8:21 AM CDT Pulse 85 05/25/2016 8:21 AM CDT Temperature - - Respiratory Rate - - Oxygen Saturation - - Inhaled Oxygen Concentration - - Weight 79.6 kg (175 lb 6.4 oz) 05/25/2016 8:21 AM CDT Height - - Body Mass Index 32.34 05/10/2014 1:41 PM CDT documented in this encounter Patient Instructions Patient InstructionsOrlando Mckinley MD - 05/25/2016 8:30 AM CDT Cut plaquenilHCQ to once a day Keep GI appt Return 6 months documented in this encounter Progress Notes Orlando Mckinley MD - 05/25/2016 9:12 AM CDT Patient comes today for follow-up of her ill-defined connective tissue process. She is had arthralgias never any synovitis. Serologically [place] but had slight elevations of sedimentation rate and CRP. She had nearly complete response to low-dose prednisone and we switched her to Plaquenil two years ago and she has had a good response she has no further arthralgias she feels good. She has had some various gastrointestinal complaints that a been partially worked up so far nothing defined but she missed a few appointments. She has an upcoming appointment scheduled. She has had no rashes no photosensitivity no pleuritic symptoms. Current Outpatient Prescriptions Medication Sig Dispense Refill ??? fluticasone (AKA FLONASE) 50 MCG/ACT nasal solution Apply or instill 1 [place] into both nostrils daily. 16 g 11 ??? hydroxychloroquine (PLAQUENIL) 200 MG tablet Take 1 Tab by mouth daily. 90 Tab 3 ??? Psyllium-Calcium (FIBER PLUS CALCIUM OR) ??? ranitidine (ZANTAC) 150 MG tablet TAKE 1 TABLET BY MOUTH EVERY MORNING. MAY TAKE AN ADDITIONAL DOSE AT BEDTIME IF NEEDED 90 Tab 1 No current facility-administered medications for this visit. Elbows wrists MCPs PIPs knees unremarkable she has no rashes oropharynx no lesions This juncture she is doing well on Plaquenil alone. We will taper her to one tablet daily. Recommended she keep her follow-up with gastroenterology. She could have a low-grade occult inflammatory boweldisease that might be associated with this. I will see her back in six months. She has had her flu shot documented in this encounter Plan of Treatment Not on filedocumented as of this encounter Visit Diagnoses Diagnosis Undifferentiated connective tissue disea se ([facility]) - Primary Unspecified diffuse connective tissue di sease documented in this encounter
--- OUTSIDE RECORDS SUMMARY | 2022-03-10 15:57 | XMS_ITS | Encounter Summary ---
:1990 Author Organization [facility] Address [address] [place] [address] Care Team Providers Name Role Phone Unavailable Primary Care Provider Unavailable Encounter Details Date Type Department Care Team Description 05/03/2018 Lab Visit [facility] Specialty Gas troesophageal reflux disease, esophagitis presence not specified; Center [address] Chronic gastritis without bl eeding, unspecified gastritis type [address] [place] [address] Social History Tobacco Use Types [...] documented as of this encounter Progress Notes Chrissie Acharya LPN - 05/03/2018 2:07 PM CDT Results letter sent. Chrissie Acharya LPN 05/03/2018, 2:07 PM Kaitlyn Muhammad, QA AUDITOR, CAN TENDER - 05/03/2018 1:16 PM CDT Juliette, Your electrolyte and magnesium levels are normal. Your vitamin D level is quite low which could be contributing to joint and muscle pain. Please take vitamin D and calcium supplements as we discussed during your visit. Please call for further questions or concerns. Kaitlyn Muhammad APRN, MATILDA 05/03/2018, 1:16 PM documented in this encounter Plan of Treatment Not on filedocumented as of this encounter Procedures Procedure Name Priority Date/Time Associated Diagnosis Comme nts VITAMIN D Routine 05/03/2018 8:40 Gastroesophageal reflux R esults for this 25-HYDROXY, TOTAL AM CDT disease, esophagitis pr ocedure are in presence not spe cified the results Chronic gastritis section. without bleeding, unspecified gastritis type BASIC METABOLIC Routine 05/03/2018 8:40 Gastroesophageal reflu x Results for this PANEL AM CDT disease, esophagitis procedu re are in presence not spe cified the results Chronic gastritis section. without bleeding, unspecified gastritis type MAGNESIUM Routine 05/03/2018 8:40 Gastroesophageal reflux R esults for this AM CDT disease, esophagitis procedu re are in presence not spe cified the results Chronic gastritis section. without bleeding, unspecified gastritis type documented in this encounter Results Magnesium (05/03/2018 8:40 AM CDT) athologist Signature Magnesium 2.5 1.6 - 2.6 [facility] mg/dl Specimen Anatomical Collection Method Collection Time Receive d Time (Source) Location / / Volume Laterality 05/03/2018 8:40 AM 8 8:41 CDT AM CDT Narrative [facility] - 05/03/2018 12:42 PM CDT Performed at [facility], [address] [place] [address] ??[id number] Kaitlyn Muhammad APRN, CNP LAB_1 Performing Organization Address City/State/ZIP Code Phon e Number [facility] [phone] (ABNORMAL) Vitamin D 25-Hydroxy, Total (05/03/2018 8:40 [...] 05/03/2018 1:02 PM C DT Performed at [facility], [address] [place] [address] ??[id number] Kaitlyn Muhammad APRN, CAN TENDER LAB_1 Performing Organization Address [facility] Phon e Number [facility] [phone] Basic Metabolic Panel (05/03/2018 8:40 AM CDT) Analysis Performed At Patho logist Time Signature Sodium 139 136 - 145 [...] - 05/03/2018 12:42 PM CDT Performed at [facility], [address] [place] [address] ??[id number] Kaitlyn Muhammad APRN CAN TENDER LAB_1 Performing Organization Address [facility] Phon e Number [facility] [phone] documented in this encounter Visit Diagnoses Diagnosis Gastroesophageal reflux disease, esophag itis presence not specified Chronic gastritis without bleeding, unsp ecified gastritis type documented in this encounter
--- OUTSIDE RECORDS SUMMARY | 2022-03-10 15:57 | XMS_ITS | Encounter Summary ---
:1990 [facility] Address [address] [place] [address] Care Team Providers Name Role Phone Unavailable Primary Care Provider Unavailable Reason for Visit Reason Comments Refill fluticasone (FLONASE) 50 MCG /ACT nasal solution [Pharmacy Med Name: FLUTICASONE PROP 50 MCG SPRA Y] Encounter Details Date Type Department Care Team Description 03/19/2017 [facility] Marvin Alvarez, Quiana ll (fluticasone Practice RECOVERY RN, DNP (FLONASE) 50 MCG/ACT [address] nasal solution [place], [place] [address] [place] [address] [Pharmacy Med Name: [phone] (Wo rk) FLUTICASONE PROP 50 MCG SPRAY]) [...] as of this encounter Nursing Notes Zandra James - 03/22/2017 9:45 AM CDT Medication Refill - Overdue Visit Called patient, was: successful in reaching patient We recently received a refill request on one of your medications. Your clinician would like to see you for a(n): office visit Patient declined to schedule due to: [facility] for [facility] 03/26 Please route to: Care Team Bayron Lola Jefferson RN - 03/19/2017 10:05 AM CDT Patient is overdue for office visit. Please call and schedule patient. Lola Jefferson RN Interface, Out Surescripts Prov Query - 03/19/2017 9:12 AM CDT fluticasone (FLONASE) 50 MCG/ACT nasal solution [Pharmacy Med Name: FLUTICASONE PROP 50 MCG SPRAY] Protocol: Allergy - Nasal Steroids -> An office visit is overdue (performed 20 months ago, required every 12 months). Last qualifying visit: 07/30/2015 (in Family Practice) Next scheduled visit: None Last ordered by MARVIN ALVAREZ M: 09/01/2016 (199 days ago) QTY: 48, Refills: 0, Sig: apply or instill 1 spray into both nostrils daily. (unchanged) Powered by [employer], Reference: [id number], 03/19/2017 9:12:50 AM Bayron REYES: TAMEKA BATISTA RN ([id number]) documented in this encounter Plan of Treatment Not on filedocumented as of this encounter Visit Diagnoses Not on filedocumented in this encounter
--- OUTSIDE RECORDS SUMMARY | 2022-03-10 15:57 | XMS_ITS | Encounter Summary ---
:1990 Author Organization [facility] Address [address], [place] [address] Care Team Providers Name Role Phone [facility], Clinician Primary Care Provider Unavailable Encounter Details Date Type Department Care Team Description 09/28/2017 Refill Order [facility] Eduarda Shultz MD [facility] [address] [address] [place] [address] [place], [place] [address] [phone] Social History Tobacco Use Types Packs/Day Years [...] encounter Nursing Notes Trenton West CMA - 09/30/2017 8:46 AM CST Reviewed and pt notified. Trenton West CMA 09/30/2017, 8:46 AM R HOUSE ENGINEER documented in this encounter Plan of Treatment Not on filedocumented as of this encounter Visit Diagnoses Diagnosis Encounter for long-term (current) use of medications - Primary Encounter for long-term (current) use of other medications documented in this encounter Care Teams Principle Industrial Hygienist Relationship Specialty Start Date End Date Nemesio Rush PCP - General 11/22/[address] [address] documented as of this encounter
--- OUTSIDE RECORDS SUMMARY | 2022-03-10 15:57 | XMS_ITS | Encounter Summary ---
:1990 Author Organization [facility] Address [address] [place] [address] Care Team Providers Name Role Phone Unavailable Primary Care Provider Unavailable Encounter Details Date Type Department Care Team Description 04/19/2017 Lab Visit Specialty Center Undiffer entiated connective Laboratory tissue disease (HRC) [address] [place] [address] Social History Tobacco Use Types [...] Name Priority Date/Time Associated Diagnosis Comme nts CREATININE / GFR Routine 04/19/2017 8:54 Undifferentiated Resu lts for this AM CDT connective tissue procedure are in disease (HR) the results section. COMPLETE BLOOD Routine 04/19/2017 8:54 Undifferentiated Result s for this COUNT-NO DIFF AM CDT connective tissue procedure are in disease (HRC) the results section. UA MICRO IF Routine 04/19/2017 8:54 Undifferentiated Results for this AM CDT connective tissue procedure are in disease (HRC) the results section. C-REACTIVE PROTEIN Routine 04/19/2017 8:54 Undifferentiated Re sults for this AM CDT connective tissue procedure are in disease (HRC) the results section. UA MICRO Routine 04/19/2017 8:54 Results for this AM CDT procedure are i n the results section. ESR Routine 04/19/2017 8:54 Undifferentiated Results for this AM CDT connective tissue procedure are in disease (HRC) the results section. documented in this encounter Results UA MICRO (04/19/2017 8:54 AM CDT) P athologist Signature RBC'S 4-7 0 - 3 /hpf [facility] WBC'S 3-5 0 - 5 /hpf [facility] Epith, Many /hpf [facility] Bact Many [facility] Casts 0 /lpf [facility] Specimen Anatomical Collection Method Collection Time Receive d Time (Source) Location / / Volume Laterality 04/19/2017 8:54 AM 7 8:57 CDT AM CDT [place] Mckinley MD LAB_1 Performing Organization Address City/State/ZIP Code Phon e Number [facility] [phone] (ABNORMAL) C-Reactive Protein (04/19/2017 8:54 AM CDT) Patholo gist Method Time Signature C-Reactive 1.2 (H) 0.0 - 0.7 [facility] mg/dL [facility] Comment: Note: results are expressed in mg/dL. Specimen Anatomical Collection Method Collection Time Receive d Time (Source) Location / / Volume Laterality 04/19/2017 8:54 AM 7 8:57 CDT AM CDT Narrative [facility] - 04/19/2017 12:48 PM CDT Performed at [facility], [address] [place] [address] ??[phone] [place] Mckinley MD LAB_1 Performing Organization Address City/State/ZIP Code Phon e Number [facility] [phone] (ABNORMAL) ESR (04/19/2017 8:54 AM CDT) P athologist Signature ESR 42 (H) 0 - 20 [facility] mm/hr Specimen Anatomical Collection Method Collection Time Receive d Time (Source) Location / / Volume Laterality 04/19/2017 8:54 AM 7 8:57 CDT AM CDT Narrative [facility] - 04/19/2017 3:14 PM C DT Performed at [facility], [address] [place] [address] ??[id number] [place] Mckinley MD LAB_1 Performing Organization Address [facility]/[facility] Phon e Number [facility] [phone] (ABNORMAL) UA Micro If (04/19/2017 8:54 AM CDT) [facility] gist Method Time Signature Urine Color Yellow [facility] Urine Clarity Hazy [facility] Sp Gr 1.025 1.005 - [facility] 1[facility]030 [facility] Leuk Sml (A) NEG [facility] Nitr Negative NEG [facility] pH 6.0 4.5 - 8.0 [facility] Prot Negative NEG mg/dl [facility] Gluc Negative NEG [facility] Ket Negative NEG [facility] Urob 0.2 0.2 - 1.0 [facility] EU/dl [facility] Bili Negative NEG [facility] Blood Sml (A) NEGTR [facility] Specimen Anatomical Collection Method Collection Time Receive d Time (Source) Location / / Volume Laterality 04/19/2017 8:54 AM 7 8:57 CDT AM CDT [place] Mckinley MD LAB_1 Performing Organization Address [facility] Phon e Number [facility] [phone] Creatinine / GFR (04/19/2017 8:54 AM CDT) Analysis Performed At [facility] logist Time Signature Creatinine 0.68 0.55 - [facility] 1.02 mg/dl [facility] GFR, Estimated >60 >60 [facility] ml/min/1.7 [facility] 3m2 GFR, Est., If >60 >60 [facility] Black ml/min/1.7 [facility] 3m2 Specimen Anatomical Collection Method Collection Time Receive d Time (Source) Location / / Volume Laterality 04/19/2017 8:54 AM 7 8:57 CDT AM CDT Narrative [facility] - 04/19/2017 12:48 PM CDT Performed at [facility], [address] [place] [address], [place] ??[phone] [place] Mckinley MD LAB_1 Performing Organization Address City/[facility]/ZIP Code Phon e Number [facility] [phone] Complete Blood Count-No Diff (04/19/2017 8:54 AM CDT) P athologist Signature WBC 6.9 4.0 - 11.0 [facility] k/ul RBC 4.63 4.0 - 5.2 [facility] M/ul Hemoglobin 12.1 12.0 - 16.0 [facility] g/dl HCT 37.5 36.0 - 46.0 [facility] % MCV 81.0 80 - 100 fl [facility] MCH 26.1 26 - 34 pg [facility] MCHC 32.3 32 - 36 [facility] g/dl RDW 13.3 11.5 - 14.5 [facility] % Platelets 311 150 - 450 [facility] k/ul Specimen Anatomical Collection Method Collection Time Receive d Time (Source) Location / / Volume Laterality 04/19/2017 8:54 AM 7 8:57 CDT AM CDT Narrative [facility] - 04/19/2017 1:12 PM C DT Performed at [facility], [address] [place] [address] ??[id number] [place] Mckinley MD LAB_1 Performing Organization Address City/[facility]/ZIP Code Phon e Number [facility] [phone] documented in this encounter Visit Diagnoses Diagnosis Undifferentiated connective tissue disea se (HRC) Unspecified diffuse connective tissue di sease documented in this encounter
--- OUTSIDE RECORDS SUMMARY | 2022-03-10 15:57 | XMS_ITS | Encounter Summary ---
:1990 Author Organization [facility] Address [address], [place] [address] Care Team Providers Name Role Phone Unavailable Primary Care Provider Unavailable Reason for Visit Reason Comments Revisit Encounter Details Date Type Department Care Team Description 04/28/2017 Office Visit [facility] Kaitlyn Muhammad oesophageal reflux disease, esophagitis presence not specified (Primary Dx); [address] [facility], TERRITORY SALES PROFESSIONAL, RECORD TESTER Current use of proton pump inhibitor Clinic [address] [place] [address] [phone] Social History Tobacco Use Types Packs/Day Years [...] Sign Reading Time Taken Comments Blood Pressure 112/82 04/28/2017 8:46 AM CDT Pulse 79 04/28/2017 8:46 AM CDT Temperature 37 ??C (98.6 ??F) 04/28/2017 8:46 AM CDT Respiratory Rate 16 04/28/2017 8:46 AM CDT Oxygen Saturation - - Inhaled Oxygen Concentration - - Weight 87.5 kg (193 lb) 04/28/2017 8:46 AM CDT Height 154.9 cm (5' 1) 04/28/2017 8:46 AM CDT Body Mass Index 36.47 04/28/2017 8:46 AM CDT documented in this encounter Patient Instructions Patient InstructionsKaitlyn Mason APRN, CNP - 04/28/2017 8:40 AM CDT Please see lab for blood draw. Please continue to take omeprazole twice a day and zantac as needed as previously prescribed. Please start taking calcium citrate and vitamin D to prevent bone loss with group home omeprazole use. Please follow up in 6 months and call for further questions or concerns. Your follow up appointment with Kaitlyn Mason NP is scheduled for WednesdayOctober 26 at 8:40 am. If your appointment needs to be cancel or reschedule please call [phone]. Kaitlyn Mason APRN, CNP 04/28/2017, 8:56 AM If you have any questions or concerns, please call [facility] at [phone]. documented in this encounter Progress Notes Kaitlyn Mason APRN, CNP - 04/28/2017 8:40 AM CDT CHIEF COMPLAINT Juliette Gaming is a 26 y.o. female who presents for follow up of previous visit for GERD on 11/13/16 HISTORY OF PRESENT ILLNESS Juliette is a very pleasant 26 y.o. female who is here for follow up from an office visit with Lorrie Hardin CNP from 11/13/16 for GERD. At that time she as having symptoms of acid reflux. She had also had epigastric pain and mild difficulty swallowing. At the time of her last follow up she was onomeprazole once a day with zantac as needed and this was mildly controlling her symptoms but not at the desired level. She was especially noticing symptoms around dinnertime when the medication seemed to be wearing off. An upper endoscopy showed esophagitis. Biopsies were negative for h.pylori and otherwise unremarkable. Today Juliette is feeling well. She states her symptoms are much better controlled since increasing the frequency of omeprazole to twice a day. She is no longer experiencing reflux symptoms and only requires the zantac when she forgets to take the omeprazole. She is not experiencing nausea, vomiting, reflux symptoms, diarrhea, constipation, unintentional weight loss, melena, or hematochezia. Past Medical History: Diagnosis Date ??? Hypercholesterolemia ??? Joint pain saw rheum, on plaquenil ??? Major depressive disorder, single episode, moderate (HRC) 02/07/2010 situational Past Surgical History: Procedure Laterality Date ??? COLONOSCOPY 2015 ??? EXTRACT, WISDOM/SINGLE TOOTH ??? UPPER GI ENDOSCOPY 2017 gastritis Family History Problem Relation Age of Onset ??? Hyperlipidemia Mother ??? Other Father Possible lactose intolerance ??? Anxiety Father ??? Coronary Artery Disease Paternal Grandfather ??? Alzheimer's Paternal Grandfather ??? Asthma Paternal Grandfather ??? Other Maternal Grandmother arthritis ??? Coronary Artery Disease Maternal Grandfather [place] in his 40s ??? Cancer, Breast Negative Family History ??? Cancer, Colon Negative Family History ??? Cancer, Ovary Negative Family History Outpatient Medications Prior to Visit Medication Sig [...] to visit. REVIEW OF SYSTEMS Skin: negative Respiratory: negative Cardiovascular: negative Gastrointestinal: as stated in HPI, otherwise negative Genitourinary: negative Musculoskeletal: negative Neurologic: negative Psychiatric: negative PHYSICAL EXAMINATION BP 112/82 Pulse 79 Temp 98.6 ??F (37 ??C) (Tympanic) Resp 16 Ht 5' 1 (1.549 m) Wt 193 lb (87.5 kg) BMI 36.47 kg/m2 General appearance: stated age, healthy, alert, in no distress Skin: Skin color, texture, turgor normal. No rashes or lesions. Neck: negative, Neck supple. No adenopathy. Thyroid symmetric, normal size. Lungs: Clear to auscultation without rales or rhonchi, Good diaphragmatic excursion. Lungs clear. Heart: PMI normal. No lifts, heaves, or thrills. RRR. No murmurs, clicks or rubs Abdomen: Abdomen soft, non-tender without masses or organomegaly Extremities: Extremities normal. No deformities, edema, or skin discoloration Musculoskeletal: Muscular strength intact. Peripheral pulses: negative Neuro: Gait normal. ASSESSMENT/PLAN GERD - well controlled Juliette states her symptoms are well controlled with omeprazole at twice a day. We discussed trying to wean her off this frequency, however Juliette feels so well at this point we decided to keep her on the current dose and frequency for another 6 months and discuss weaning at her 6 month follow up appointment. She was asked to take calcium citrate and vitamin D while she is on omeprazole to prevent bone loss. Magnesium and vitamin D levels were drawn to assess for deficiencies with group home PPI use. She was asked to follow up in 6 months and to call for further questions or concerns. Kaitlyn Mason APRN, MATILDA 04/28/2017, 9:21 AM documented in this encounter Plan of Treatment Not on filedocumented as of this encounter Results (ABNORMAL) Vitamin D 25-Hydroxy, [...] 04/28/2017 1:29 PM C DT Performed at [facility], [address] [place] [id number] Kaitlyn Muhammad APRN, CNP LAB_1 Performing Organization Address [facility] Phon e Number [facility] [phone] Magnesium (04/28/2017 9:13 AM CDT) athologist Signature Magnesium 2.3 1.6 - 2.6 [facility] mg/dl Specimen Anatomical Collection Method Collection Time Receive d Time (Source) Location / / Volume Laterality 04/28/2017 9:13 AM 7 9:21 CDT AM CDT Narrative [facility] - 04/28/2017 12:58 PM CDT Performed at [facility], [address] [place] [address] ??[id number] Kaitlyn Muhammad APRN, CNP LAB_1 Performing Organization Address [facility] Phon e Number [facility] [phone] documented in this encounter Visit Diagnoses Diagnosis Gastroesophageal reflux disease, esophag itis presence not specified - Primary Current use of proton pump inhibitor Gastroesophageal reflux disease, esophag itis presence not specified documented in this encounter
--- OUTSIDE RECORDS SUMMARY | 2022-03-10 15:57 | XMS_ITS | Encounter Summary ---
:1990 Author Organization [facility] Address [address], [place] [address] Care Team Providers Name Role Phone Unavailable Primary Care Provider Unavailable Reason for Visit Reason Comments Revisit SHOT,FLU Encounter Details Date Type Department Care Team Description 04/19/2017 Office Visit [facility] Orlando Mckinley ferentiated connective tissue disease (HRC) (Primary Dx); 401 Rheumatology MD Charles Encounter for immunization Clinic [address] [place] [address] Social History Tobacco Use Types [...] Sign Reading Time Taken Comments Blood Pressure 99/64 04/19/2017 8:24 AM CDT Pulse 83 04/19/2017 8:24 AM CDT Temperature - - Respiratory Rate 17 04/19/2017 8:24 AM CDT Oxygen Saturation - - Inhaled Oxygen Concentration - - Weight 88.5 kg (195 lb 3.2 oz) 04/19/2017 8:24 AM CDT Height - - Body Mass Index 35.99 03/26/2017 10:32 AM CDT documented in this encounter Patient Instructions Patient InstructionsOrlando Mckinley MD - 04/19/2017 8:00 AM CDT Blood tests today,, will call with results Continue plaquenil HCQ once a day See EYE Doctor for plaquenil checks Return [address] Medeiros documented in this encounter Progress Notes Orlando Mckinley MD - 04/19/2017 8:00 AM CDT Patient comes today for follow up of her low-grade undifferentiated connective tissue disease. She presented several years ago with symptoms suggestive of fibromyalgia but she did not have tender points. On repeating her sedimentation rate and CRP they are both further elevated from previous values nosedimentation rate over 40. Her serologies other than a nonspecific MELISSA were entirely unremarkable including IRVIN DNA rheumatoid factors.( She responded nicely to Plaquenil and we have left her on it and she is on once a day she states sheis basically asymptomatic she has had no further evolution of symptoms she has had no rashes photosensitivity. She said no pleurisy no hematologic problems Her intercurrent health has been unremarkable Current Outpatient Prescriptions Medication Sig Dispense Refill [...] No current facility-administered medications for this visit. Skin reveals no rash no periungual erythema, joints showed elbows wrists MCPs PIPs knees and ankles quiet no synovitis no edema. Chest is clear to auscultation Assessment mild undifferentiated process are stable now after several years. She is doing well so I will leave her on Plaquenil. Update eye exam. Update labs today. Return six months documented in this encounter Plan of Treatment Not on filedocumented as of this encounter Results (ABNORMAL) C-Reactive Protein (04/19/2017 8:54 AM CDT) [facility] Method Time Signature C-Reactive 1.2 (H) 0.0 - 0.7 [facility] Protein mg/dL LAB[facility]ATORIES Comment: Note: results are expressed in mg/dL. Specimen Anatomical Collection Method Collection Time Receive d Time (Source) Location / / Volume Laterality 04/19/2017 8:54 AM 7 8:57 CDT AM CDT Narrative [facility] - 04/19/2017 12:48 PM CDT Performed at [address] ??[id number] Orlando Mckinley MD LAB_1 Performing Organization Address City/[facility] Code Phon e Number [facility] [phone] (ABNORMAL) ESR (04/19/2017 8:54 AM CDT) athologist Signature ESR 42 (H) 0 - 20 [facility] mm/hr Specimen Anatomical Collection Method Collection Time Receive d Time (Source) Location / / Volume Laterality 04/19/2017 8:54 AM 7 8:57 CDT AM CDT Narrative [facility] - 04/19/2017 3:14 PM C DT Performed at [facility], [address] [place] [address] ??[id number] Orlando Mckinley MD LAB_1 Performing Organization Address City/[facility]/ZIP Code Phon e Number [facility] [phone] (ABNORMAL) UA Micro If (04/19/2017 8:54 AM CDT) [facility] Method Time Signature Urine Color Yellow [facility] [...] City/State/ZIP Code Phon e Number [facility] [phone] Creatinine / GFR (04/19/2017 8:54 AM CDT) Analysis Performed At Patho logist Time Signature Creatinine 0.68 0.55 - [facility] 1.02 mg/dl LAB[facility]IES GFR, Estimated >60 >60 [facility] ml/min/1.7 LABORATORIES 3m2 GFR, Est., If >60 >60 [facility] Black ml/min/1.7 LABORATORIES 3m2 Specimen Anatomical Collection Method Collection Time Receive d Time (Source) Location / / Volume Laterality 04/19/2017 8:54 AM 7 8:57 CDT AM CDT Narrative [facility] - 04/19/2017 12:48 PM CDT Performed at [facility], [address] [place] [address] ??[phone] Orlando Mckinley MD LAB_1 Performing Organization Address City/State/ZIP Code Phon e Number [facility] [phone] Complete Blood Count-No Diff (04/19/2017 8:54 AM [...] 04/19/2017 1:12 PM C DT Performed at [facility], [address] [place] [address] ??[id number] Orlando Mckinley MD LAB_1 Performing Organization Address City/State/ZIP Code Phon e Number [facility] [phone] documented in this encounter Visit Diagnoses Diagnosis Undifferentiated connective tissue disea se (HRC) - Primary Unspecified diffuse connective tissue di sease Encounter for immunization Need for other specified prophylactic va ccination against single bacterial disease Undifferentiated connective tissue disea se (HRC) Unspecified diffuse connective tissue di sease documented in this encounter
--- OUTSIDE RECORDS SUMMARY | 2022-03-10 15:57 | XMS_ITS | Encounter Summary ---
:1990 Author Organization [facility] Address [address] [address] Care Team Providers Name Role Phone Unavailable Primary Care Provider Unavailable Reason for Visit Reason Comments Refill hydroxychloroquine (PLAQUENI L) 200 MG tablet [Pharmacy Med Name: HYDROXYCHLOROQUINE 200 MG TA B] Encounter Details Date Type Department Care Team Description 12/13/2017 Refill [facility] 401 Orlando Mckinley (hydroxychloroquine Rheumatology Clinic MD Charles (PLAQUENIL) 200 MG tablet 401 [facility] [Pharmacy Med Name: [place] [address] HYDROXYCHLOROQUINE 200 MG [phone] TAB]) Social History Tobacco Use Types Packs/Day [...] Notes Interface, Out Surescripts Prov Query - 12/13/2017 1:19 AM CDT hydroxychloroquine (PLAQUENIL) 200 MG tablet [Pharmacy Med Name: HYDROXYCHLOROQUINE 200 MG TAB] Hydroxychloroquine -> Ensure the patient had an Eye Exam in the last 12 months. -> Refill x 6 months, qty: 180, refills: 1 (until due for an office visit) Last qualifying visit: 04/19/2017 (in Rheumatology) Next scheduled visit: None Last ordered by ORLANDO MCKINLEY M: 03/01/2017 (287 days ago) QTY: 180, Refills: 2, Sig: take 1 tab by mouth two times a day. (unchanged) Powered by [employer], Reference: [id number], 12/13/2017 1:19:13 AM CDT, Pool: Arlen Perry Care Team ([id number]) documented in this encounter Plan of Treatment Not on filedocumented as of this encounter Visit Diagnoses Not on filedocumented in this encounter
--- OUTSIDE RECORDS SUMMARY | 2022-03-10 15:58 | XMS_ITS | Encounter Summary ---
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 [place] [address] [place] [address] [phone] (Wo rk) Social History Tobacco Use Types [...] documented as of this encounter Nursing Notes Karen Gimenez RN - 03/18/2015 11:31 AM CDT PPI filled per standing order. Auto pharm escript refill request. Karen Gimenez RN 03/18/2015, 11:31 AM documented in this encounter Plan of Treatment Not on filedocumented as of this encounter Visit Diagnoses Not on filedocumented in this encounter
--- OUTSIDE RECORDS SUMMARY | 2022-03-10 15:58 | XMS_ITS | Encounter Summary ---
:1990 Author Organization [facility] Address [address] [place] [address] Care Team Providers Name Role Phone Unavailable Primary Care Provider Unavailable Reason for Visit Reason Comments Encounter Details Date Type Department Care Team Description 02/04/2015 Telephone [facility] 401 Orlando Mckinley MD Rheumatology Clinic [address] [place] [address] Social History Tobacco Use Types Packs/Day Years [...] documented as of this encounter Nursing Notes Kathya Alba LPN - 02/11/2015 9:14 AM CDT Message given to patient understanding was voiced. Kathya Alba LPN Zandra Gr LPN - 02/08/2015 10:10 AM CDT Message left to call back. Zandra Gr LPN Nova Broussard LPN - 02/06/2015 3:09 PM CDT Message left tor patient to call. Nova Broussard LPN Rajwinder Garcia LPN - 02/04/2015 4:00 PM CDT Left message for patient to return call. Rajwinder Garcia LPN Orlando Mckinley MD - 02/04/2015 3:53 PM CDT Labs overall look good, just one inflammatory test up, the other normal. Would not change plans based on this. TH documented in this encounter Plan of Treatment Not on filedocumented as of this encounter Visit Diagnoses Not on filedocumented in this encounter
--- OUTSIDE RECORDS SUMMARY | 2022-03-10 15:58 | XMS_ITS | Encounter Summary ---
:1990 Author Organization [facility] Address [address] [address] Care Team Providers Name Role Phone Unavailable Primary Care Provider Unavailable Reason for Visit Reason Comments Follow-up, NOS IMMUNIZATIONS Encounter Details Date Type Department Care Team Description 05/10/2014 Office [facility] Orlando Mckinley for immunization (Primary Dx); 401 Rheumatology MD Charles Unspecified inflammatory polyarthropathy Clinic [place] [address] [facility] [place] [address] Social History Tobacco Use Types [...] Sign Reading Time Taken Comments Blood Pressure 102/65 05/10/2014 1:41 PM CDT Pulse 83 05/10/2014 1:41 PM CDT Temperature - - Respiratory Rate - - Oxygen Saturation - - Inhaled Oxygen Concentration - - Weight 71.2 kg (157 lb) 05/10/2014 1:41 PM CDT Height 156.8 cm (5' 1.75) 05/10/2014 1:41 PM CDT Body Mass Index 28.95 05/10/2014 1:41 PM CDT documented in this encounter Patient Instructions Patient InstructionsOrlando Mckinley MD - 05/10/2014 1:50 PM CDT Continue plaquenil HCQ twice a day Continue taper of prednisone as planned Tylenol as needed Return 6 months documented in this encounter Progress Notes Orlando Mckinley MD - 05/10/2014 2:01 PM CDT Patient comes today for follow-up. She has had a seronegative arthralgia elevated sedimentation ratewith a question of inflammatory bowel disease currently under evaluation. We gave her a trial of prednisone she felt significantly better and now after two months of Plaquenil down to 5 mg of prednisone feeling definitely better as well. Her gastrointestinal evaluation is still in process. Current Outpatient Prescriptions Medication Sig ??? hydroxychloroquine (AKA PLAQUENIL) 200 MG tablet Take 1 Tab by mouth two times a day. ??? predniSONE (AKA DELTASONE) 5 MG tablet Take 5 mg by mouth daily. ??? Psyllium-Calcium (FIBER PLUS CALCIUM OR) ??? ranitidine (AKA ZANTAC) 150 MG tablet Take every morning. May take an additional dose at bedtimeif needed Elbows wrists MCPs PIPs unremarkable skin unremarkable. Continue Plaquenil continue prednisone taper. She will continue her gastrointestinal evaluation for inflammatory bowel disease. Return six months documented in this encounter Plan of Treatment Not on filedocumented as of this encounter Visit Diagnoses Diagnosis Encounter for immunization - Primary Need for other specified prophylactic va ccination against single bacterial disease 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
--- OUTSIDE RECORDS SUMMARY | 2022-03-10 15:58 | XMS_ITS | Encounter Summary ---
:1990 Author Organization [facility] Address [address] [place] [address] Care Team Providers Name Role Phone Unavailable Primary Care Provider Unavailable Encounter Details Date Type Department Care Team Description 02/27/2016 Notes/Orders [facility] Elaine Shultz, En counter for 401 Rheumatology long-term (current) Clinic [address] J[address] LOPEZ use of medications [address] (Primary Dx) [place] [address] [place], [place] [phone] Social History Tobacco Use Types Packs/Day Years [...] Notes Interface, Out Surescripts Prov Query - 02/27/2016 1:15 AM CDT SCHEDULE THE FOLLOWING: - OFFICE VISIT BY: Now (Due as of 01/26/2016 for hydroxychloroquine (AKA PLAQUENIL) 200 MG tablet) - LAST QUALIFYING VISIT IN RHEUMATOLOGY: 01/31/2015 - NEXT SCHEDULED VISIT: None - NEXT LAB APPOINTMENT: None Powered by [employer], Reference: [id number], 02/27/2016 1:15:49 AM CDT, Pool: Leslie Zendejasvladimir Montiel ([id number]) Y DUMP DRIVER documented in this encounter Plan of Treatment Not on filedocumented as of this encounter Visit Diagnoses Diagnosis Encounter for long-term (current) use of medications - Primary Encounter for long-term (current) use of other medications documented in this encounter
--- OUTSIDE RECORDS SUMMARY | 2022-03-10 15:58 | XMS_ITS | Encounter Summary ---
:1990 Author Organization [facility] Address [address] [place] [address] Care Team Providers Name Role Phone Victor Manuel Clinician Primary Care Provider Unavailable Encounter Details Date Type Department Care Team Description 05/28/2014 Consent for [facility] Department RH INFORM ED [...] on filedocumented in this encounter Care Teams Railroad Car Loader Relationship Specialty Start Date End Date Nemesio Rush PCP - General 11/22/[address] [place] [address] documented as of this encounter
--- OUTSIDE RECORDS SUMMARY | 2022-03-10 15:58 | XMS_ITS | Encounter Summary ---
:1990 Author Organization [facility] Address [address] [place] [address] Care Team Providers Name Role Phone Unavailable Primary Care Provider Unavailable Reason for Visit Reason Comments Consult, New Patient Dr. Winn referring Consult/Transfer Care (Routine) - Closed Specialty Diagnoses / Procedures Referred By Contact Refer red To Contact Orlando Mckinley M D [place] Referral ID Status Reason Start Date Expiration Date Visits Requ ested Visits Authorized [id number] Closed 03/05/2014 06/04/2015 1 1 Encounter Details Date Type Department Care Team Description 04/12/2014 [facility] Visit [facility] Zoey Bower, Abdom inal pain, generalized (Primary Dx); [facility] Lorrie M, PIANO PLAYER, Acid r eflux; Clinic ELECTRIC MOTOR CONTROL ASSEMBLER Elevated C-reactive protein (CRP); [address] [place] [address] [place], [place] [phone] [facility] Social History Tobacco Use Types Packs/Day Years [...] Sign Reading Time Taken Comments Blood Pressure 130/78 04/12/2014 12:52 PM CDT Pulse 84 04/12/2014 12:52 PM CDT Temperature 37.1 ??C (98.8 ??F) 04/12/2014 12:52 PM CDT Respiratory Rate - - Oxygen Saturation - - Inhaled Oxygen Concentration - - Weight 70.3 kg (155 lb) 04/12/2014 12:52 PM CDT Height 156.8 cm (5' 1.75) 04/12/2014 12:52 PM CDT Body Mass Index 28.58 04/12/2014 12:52 PM CDT documented in this encounter Patient Instructions Patient InstructionsLorrie Bhat APRN, CNP - 04/12/2014 1:34 PM CDT Please get your blood work done today 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 Follow up in clinic with Lorrie Hardin NP , scheduled on WednesdayJuly 04 at 11:15am [address] We will contact you with results and recommendations If you have any questions or concerns, please call the [facility] at [phone]. documented in this encounter Progress Notes Lorrie Bhat APRN, CNP - 04/12/2014 1:42 PM CDT GASTROENTEROLOGY CONSULT NOTE DATE OF SERVICE: 04/12/2014 HISTORY OF PRESENTING ILLNESS: Juliette Gaming is a 23 yr old female here for a consultation at the request of Dr. Orlando Mckinley for evaluation abdominal pain. She reports that since she was a baby,she had digestive issues. Her mom took her to see a senior audit manager when she was a child. There was no clear diagnosis apparently. She states that she would always cry after eating. She states that she always has had a sensitive stomach. She has acid reflux/regurgitation that has been going on for at least the last 6 months. She takes Tums and mints which do help some. She does not have dysphagia. She has abdominal pain, both upper and lower abdominal pain which is worse after eating. She has nausea, particularly on an empty stomach. She usually has one to 2 diarrhea stools per day. No bloody or black tarry stools. She has not had any unintentional weight loss. No fevers or chills. She is seeing rheumatology for joint pains, in her wrists, knees and ankles. She was diagnosed with undifferentiated connective tissue disease. She has recently been taking plaquenil and prednisone lately. Prednisone dose was as high as 10 mg per day. Currently she has tapered to 7.5 mg per day. She reports thather joint pains have improved significantly. She also believes that she is having less diarrhea and less abdominal pain. She indicates that she is lactose intolerance and generally avoids lactose but will occasionally use Lactaid if she consumes lactose. She has been aware of this for the past 3 years. She did get frequent canker sores as a child which she related to having braces. She has a history of elevated CRP, most recently 2.9 and elevated sedimentation rate, most recently 43, hemoglobin 11.7with a normal MCV. REVIEW OF SYSTEMS: The remainder of complete review of systems is negative. PAST MEDICAL HISTORY: The patient has a past medical history of Hypercholesterolemia and Major depressive disorder, single episode, moderate (02/07/2010). PAST SURGICAL HISTORY: has past surgical history that includes extract, wisdom/single tooth. MEDICATIONS: Patient has a current medication list which includes the following prescription(s): hydroxychloroquine, prednisone, psyllium-calcium, and ranitidine. ALLERGIES: Review of patient's allergies indicates no known allergies. SOCIAL HISTORY: She is single. She is currently living with her parents. She graduated from college last spring with a degree in psychology. 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 FAMILY HISTORY: No gastrointestinal related diseases or malignancies. Brother has vitiligo PHYSICAL EXAM: BP 130/78 Pulse 84 Temp(Src) 98.8 ??F (37.1 ??C) (Tympanic) Ht 5' 1.75 (1.568 m) Wt 155 lb (70.308 kg) BMI 28.60 kg/m2 LMP 03/13/2014 Pleasant female in no acute distress. HEENT: Anicteric sclera Pulmonary: Clear to auscultation. No crackles or rales noted. Cardiovascular: Regular rate and rhythm, no murmur or gallop noted. Abdomen: Soft, flat, non-tender to palpation. Normal bowel sounds. No hepatosplenomegaly. Psych: Normal speech, affect and memory. Neurologic: Grossly intact. Alert and oriented Extremity exam: No edema ASSESSMENT AND PLAN: 23-year-old female with abdominal pain, loose stools, possible IBS however withelevated CRP and sed rate and arthralgias, need to consider the possibility of underlying inflammatory bowel disease, more likely Crohn's disease. She is also having fairly significant acid reflux. Will check Helicobacter pylori and start her on Zantac. We will do blood testing for celiac disease. Consider EGD, colonoscopy or imaging such as CTE or MRE. We will contact her with lab results. Lorrie Ferrari CNP 04/12/2014, 1:42 PM documented in this encounter Plan of Treatment Not on filedocumented as of this encounter Results (ABNORMAL) IRON PROFILE (IRON,TIBC,%SAT.(CALC)) (04/12/2014 1:44 PM CDT) [facility] gist Method Time Signature Iron 76 37 - 170 [facility] mcg/dl [facility] TIBC 453 (H) 240 - 430 [facility] mcg/dl [facility] % Saturation, 17 15 - 50 % [facility] calc. [facility] Specimen Anatomical Collection Method Collection Time Receive d Time (Source) Location / / Volume Laterality 04/12/2014 1:44 PM 4 1:47 CDT PM CDT Narrative [facility] - 04/12/2014 8:05 PM C DT Performed at [facility], [address] [place] [phone] Lorrie Bower APRN, CNP LAB_1 Performing Organization Address City/State/ZIP Code Phon e Number [facility] [phone] FERRITIN (04/12/2014 1:44 PM CDT) athologist Signature Ferritin 20 10 - 120 [facility] ng/ml Specimen Anatomical Collection Method Collection Time Receive d Time (Source) Location / / Volume Laterality 04/12/2014 1:44 PM 4 1:47 CDT PM CDT Narrative [facility] - 04/12/2014 8:05 PM C DT Performed at [facility], [address] [place] [phone] Lorrie Bower APRN, MATILDA LAB_1 Performing Organization Address [facility] Phon e Number [facility] [phone] CELIAC DISEASE PANEL AND IGA(IF NEEDED) (04/12/2014 1:44 PM CDT) Component Value Ref Test Analysis Performed At [facility] [employer] Range Method Time Signature TTG 1 0 - 6 [facility] Antibody, U/mL LAB[facility]ATORIES IgA TTG IgA (NOTE) [facility] Interpreta. TTG IgA ? Interpretation LAB[facility]ATORIES VALUE ? of Test Results 0-6 ? Negative 7-10 ?Equivocal >10 ? Positive Specimen Anatomical Collection Method Collection Time Receive d Time (Source) Location / / Volume Laterality 04/12/2014 1:44 PM 4 1:47 CDT PM CDT Narrative [facility] - 04/13/2014 12:34 PM CDT Performed at [facility], [address] [place] [phone] Lorrie Bower APRN, MATILDA LAB_1 Performing Organization Address [facility] Phon e Number [facility] [phone] H. PYLORI IGG (04/12/2014 1:44 PM CDT) [facility] [employer] Method Time Signature H. pylori IgG Negative NEG [facility] Specimen Anatomical Collection Method Collection Time Receive d Time (Source) Location / / Volume Laterality 04/12/2014 1:44 PM 4 1:47 CDT PM CDT Narrative [facility] - 04/13/2014 3:02 PM C DT Performed at [facility], [address] [place] [address] ??[phone] Lorrie Bower APRN, ELECTRIC MOTOR CONTROL ASSEMBLER LAB_1 Performing Organization Address City/State/ZIP Code Phon e Number [facility] [phone] documented in this encounter Visit Diagnoses Diagnosis Abdominal pain, generalized - Primary Acid reflux Esophageal reflux Elevated C-reactive protein (CRP) Loose stools Abnormal feces documented in this encounter
--- OUTSIDE RECORDS SUMMARY | 2022-03-10 15:58 | XMS_ITS | Encounter Summary ---
:1990 [facility] Address [address], [place] [address] Care Team Providers Name Role Phone Unavailable Primary Care Provider Unavailable Reason for Visit Reason Comments Refill Encounter Details Date Type Department Care Team Description 02/17/2015 [facility]ill [facility] 401 Orlando Mckinley MD Refill Rheumatology Clinic [address] [place] [address] Social History Tobacco Use Types Packs/Day Years [...] Notes Interface, Out Surescripts Prov Query - 02/17/2015 1:57 PM CDT hydroxychloroquine (AKA PLAQUENIL) 200 MG tablet [Pharmacy Med Name: HYDROXYCHLOROQUINE 200 MG TAB] - WARNING: Ensure the patient had an Eye Exam in the last 12 months. - REFILL: 12 months (if warnings resolved) - PROTOCOL: Hydroxychloroquine - RATIONALE: This refill should last until the patient is due for an office visit. - LAST QUALIFYING VISIT IN RHEUMATOLOGY: 01/31/2015 - NEXT SCHEDULED VISIT IN RHEUMATOLOGY: 08/06/2015 - LAST REFILLED ON: 03/13/2014, QTY: 180, Refills: 3, Sig: take 1 tab by mouth two times a day. (unchanged) Powered by [employer], Reference: [id number], 02/17/2015 1:57:47 PM CDT, Pool: [facility] Team ([id number]) documented in this encounter Plan of Treatment Not on filedocumented as of this encounter Visit Diagnoses Not on filedocumented in this encounter
--- OUTSIDE RECORDS SUMMARY | 2022-03-10 15:58 | XMS_ITS | Encounter Summary ---
:1990 Author Organization [facility] Address [address] [place] [address] Care Team Providers Name Role Phone Unavailable Primary Care Provider Unavailable Encounter Details Date Type Department Care Team Description 02/23/2014 Orders Only [facility] Screening for thyroid disord er (Primary Dx); [address] [facility] [place]. S. Pain in joint, multiple site s [place], [place] [address] Social History Tobacco Use Types [...] Procedure Name Priority Date/Time Associated Comments Diagnosis ANTI SS-B (LA) Routine 02/23/2014 1:40 PM Pain in joint, Resul ts for this CDT multiple sites procedure are in the results section. ANTI SS-A (RO) Routine 02/23/2014 1:40 PM Pain in joint, Resul ts for this CDT multiple sites procedure are in the results section. CREATININE / GFR Routine 02/23/2014 1:40 PM Pain in joint, Res ults for this CDT multiple sites procedure are in the results section. ANTI-CCP AB Routine 02/23/2014 1:40 PM Pain in joint, Results for this CDT multiple sites procedure are in the results section. SM AND SM/GLUING CREW LEADER Routine 02/23/2014 1:40 PM Pain in joint, Result s for this ANTIBODIES CDT multiple sites procedure are in the results section. COMPLETE BLOOD Routine 02/23/2014 1:40 PM Pain in joint, Resul ts for this COUNT-W/DIFF CDT multiple sites procedure are in the results section. UA MICRO IF Routine 02/23/2014 1:40 PM Pain in joint, Results for this CDT multiple sites procedure are in the results section. RHEUMATOID FACTOR, Routine 02/23/2014 1:40 PM Pain in joint, R esults for this QUANT CDT multiple sites procedure are in the results section. DNA DOUBLE STRANDED Routine 02/23/2014 1:40 PM Pain in joint, Results for this ANTIBODY CDT multiple sites procedure are in the results section. AUTOABY TO JO1 AG Routine 02/23/2014 1:40 PM Pain in joint, Re sults for this CDT multiple sites procedure are in the results section. HEPATITIS C ANTIBODY, Routine 02/23/2014 1:40 PM Pain in joint , Results for this WITH REFLEX CDT multiple sites procedure are in the results section. AUTOABY TO SCL 70 AG Routine 02/23/2014 1:40 PM Pain in joint, Results for this CDT multiple sites procedure are in the results section. LYME ANTIBODY (REFLEX Routine 02/23/2014 1:40 PM Pain in joint , Results for this TO LYME CONFIRMATORY CDT multiple sites proce prettye are in PANEL) the results section. C-REACTIVE PROTEIN Routine 02/23/2014 1:40 PM Pain in joint, R esults for this CDT multiple sites procedure are in the results section. ALT (SGPT) Routine 02/23/2014 1:40 PM Pain in joint, Results for this CDT multiple sites procedure are in the results section. AST Routine 02/23/2014 1:40 PM Pain in joint, Results for this CDT multiple sites procedure are in the results section. CALCIUM Routine 02/23/2014 1:40 PM Pain in joint, Results for this CDT multiple sites procedure are in the results section. UA MICRO Routine 02/23/2014 1:40 PM Results f or this CDT procedure are i n the results section. ESR Routine 02/23/2014 1:40 PM Pain in joint, Results for this CDT multiple sites procedure are in the results section. documented in this encounter Results UA MICRO (02/23/2014 1:40 PM CDT) P athologist Signature RBC'S 0-3 0 - 3 /hpf [facility] WBC'S 0-2 0 - 5 /hpf [facility] Epith, Occ /hpf [facility] Squamous [facility] Bact Mod [facility] Casts 0 /lpf [facility] Specimen Anatomical Collection Method Collection Time Receive d Time (Source) Location / / Volume Laterality 02/23/2014 1:40 PM 4 1:53 CDT PM CDT Narrative [facility] - 02/23/2014 2:00 PM C DT Performed at [facility], [address] [place] [address] ??[phone] Orlando Mckinley MD LAB_1 Performing Organization Address City/State/ZIP Code Phon e Number [facility] [phone] DNA DOUBLE STRANDED ANTIBODY (02/23/2014 1:40 PM CDT) Component Value Ref Test Analysis Performed At Patholo gist Range Method Time Signature dsDNA 6 0 - 24 [facility] Antibody IU [facility] dsDNA Ab (NOTE) [facility] Interpreta. ds-DNA Ab ? Interpretation [facility] VALUE ? of Test Results 0-24 ?? IU ?Negative 25-30 ??IU ?Borderline Positive 30-60 ??IU ?Low Positive 60-200 IU ?Positive > 200 ??IU ?Strong Positive This is a test that requires interpretation by your provider and does not necessarily indicate that you have a specific disea se. Specimen Anatomical Collection Method Collection Time Receive d Time (Source) Location / / Volume Laterality 02/23/2014 1:40 PM 4 1:53 CDT PM CDT Narrative [facility] - 02/27/2014 2:39 PM C DT Performed at [facility], [address] [place] [address] ??[phone] Orlando Mckinley MD LAB_1 Performing Organization Address [facility]/ZIP Code Phon e Number [facility] [phone] RHEUMATOID FACTOR, QUANT(aka RFQ) [[id number]] (02/23/2014 1:40 PM CDT) P athologist Signature Quant. Rheum. <9 0 - 11 [facility] Factor IU/ml [facility] Specimen Anatomical Collection Method Collection Time Receive d Time (Source) Location / / Volume Laterality 02/23/2014 1:40 PM 4 1:53 CDT PM CDT Narrative [facility] - 02/23/2014 4:13 PM C DT Performed at [facility], [address] [place] [address] ??[phone] Orlando Mckinley MD LAB_1 Performing Organization Address [facility]/ZIP Code Phon e Number [facility] [phone] LYME ANTIBODY [[id number]] (02/23/2014 1:40 PM CDT) P athologist Signature Lyme Antibody 0.38 0 - 0.74 [facility] OD Ratio [facility] Comment: Negative Specimen Anatomical Collection Method Collection Time Receive d Time (Source) Location / / Volume Laterality 02/23/2014 1:40 PM 4 1:53 CDT PM CDT Narrative MG [facility] - 02/26/2014 12:08 PM CDT Performed at [facility], [address] [place] [address] ??[phone] Orlando Mckinley MD LAB_1 Performing Organization Address [facility]/ZIP Code Phon e Number [facility] [phone] ANTI SS-A (RO) (02/23/2014 1:40 PM CDT) Patholo gist Method Time Signature Anti-SSA (Ro) <0.3 0 - 6.9 [facility] result U/mL [facility] Anti-SSA (NOTE) [facility] Interpreta. Anti-SSA (Ro) ?Interpretation LAB[facility]IES VALUE ?of Test Results 0-6.9 ? Negative 7.0-10.0 ?Equivocal >10.0 ? Positive Specimen Anatomical Collection Method Collection Time Receive d Time (Source) Location / / Volume Laterality 02/23/2014 1:40 PM 4 1:53 CDT PM CDT Narrative [facility] - 02/26/2014 11:03 AM CDT Performed at [facility], [address] [place] [address] ??[phone] Orlando Mckinley MD LAB_1 Performing Organization Address [facility] Phon e Number [facility] [phone] ANTI SS-B (LA) (02/23/2014 1:40 PM CDT) [facility] Method Time Signature Anti-SSB (La) <0.3 0 - 6.9 [facility] Result U/mL [facility] Anti-SSB (NOTE) [facility] Interpreta. Anti-SSB (La) ?Interpretation LAB[facility]IES VALUE ?of Test Results 0-6.9 ? Negative 7.0-10.0 ?Equivocal >10.0 ? Positive Specimen Anatomical Collection Method Collection Time Receive d Time (Source) Location / / Volume Laterality 02/23/2014 1:40 PM 4 1:53 CDT PM CDT Narrative [facility] - 02/26/2014 11:03 AM CDT Performed at [facility], [address] [place] [address] ??[phone] Orlando Mckinley MD LAB_1 Performing Organization Address [facility] Phon e Number [facility] [phone] AUTOABY TO JO1 AG (02/23/2014 1:40 PM CDT) Component Value Ref Test Analysis Performed At [facility] Range Method Time Signature DAKOTA-1 Antibody <1.0 NEG [facility] Reference range: <1.0 NEG LABO RATORIES Unit: AI DAKOTA-1 Antibody (NOTE) [facility] Test performed at [facility] [address] ??[phone] Director: MELVA SOTO MD Specimen Anatomical Collection Method Collection Time Receive d Time (Source) Location / / Volume Laterality 02/23/2014 1:40 PM 4 1:53 CDT PM CDT Orlando Mckinley MD LAB_1 Performing Organization Address City/[facility] Code Phon e Number [facility] [phone] AUTOABY TO SCL 70 AG (02/23/2014 1:40 PM CDT) [facility] Method Time Signature SCL-70 Ab <1.0 NEG [facility] Reference range: <1.0 NEG LAB[facility]ATORIES Unit: AI SCL-70 Ab (NOTE) [facility] Test performed at [facility] [address] ??[phone] Director: MELVA OSTO MD Specimen Anatomical Collection Method Collection Time Receive d Time (Source) Location / / Volume Laterality 02/23/2014 1:40 PM 4 1:53 CDT PM CDT Orlando Mckinley MD LAB_1 Performing Organization Address [facility] Phon e Number [facility] [phone] SM AND SM/GLUING CREW LEADER ANTIBODIES (02/23/2014 1:40 PM CDT) Component Value Ref Test Analysis Performed At [facility] Range Method Time Signature Sm Antibody <1.0 NEG [facility] Reference range: <1.0 NEG LAB[facility] Unit: AI Sm/GLUING CREW LEADER <1.0 NEG [facility] Antibody Reference range: <1.0 NEG LAB[facility] Unit: AI Sm/GLUING CREW LEADER (NOTE) [facility] Antibody [facility] Test performed at [facility] [address] ??[phone] Director: MELVA SOTO MD Specimen Anatomical Collection Method Collection Time Receive d Time (Source) Location / / Volume Laterality 02/23/2014 1:40 PM 4 1:53 CDT PM CDT Orlando Mckinley MD LAB_1 Performing Organization Address City/[facility] Code Phon e Number [facility] [phone] (ABNORMAL) C-REACTIVE PROTEIN(aka CRP) [[id number]] (02/23/2014 1:40 PM CDT) Patholo gist Method Time Signature C-Reactive 2.9 (H) 0.0 - 0.9 [facility] Protein mg/dl [facility] Comment: Note: results are expressed in mg/dL. Specimen Anatomical Collection Method Collection Time Receive d Time (Source) Location / / Volume Laterality 02/23/2014 1:40 PM 4 1:53 CDT PM CDT Narrative [facility] - 02/23/2014 4:13 PM C DT Performed at [facility], [address] [place] [address] ??[phone] Orlando Mckinley MD LAB_1 Performing Organization Address [facility] Phon e Number [facility] [phone] CCP AB [[id number]] (02/23/2014 1:40 PM CDT) P athologist Signature Anti-CCP 1 0 - 6 U/ml [facility] Antibody [facility] Comment: INTERPRETATION OF RESULTS NEGATIVE ? <7 EQUIVOCAL ?7-10 POSITIVE ? >10 Specimen Anatomical Collection Method Collection Time Receive d Time (Source) Location / / Volume Laterality 02/23/2014 1:40 PM 4 1:53 CDT PM CDT Narrative [facility] - 02/26/2014 11:03 AM CDT Performed at [facility], [address] [place] [address] ??[phone] Orlando Mckinley MD LAB_1 Performing Organization Address City/[facility] Phon e Number [facility] [phone] CREATININE / GFR [[id number]] (02/23/2014 1:40 PM CDT) Analysis Performed At Patho logist Time Signature Creatinine 0.52 0.52 - [facility] 1.04 mg/dl LAB[facility] GFR, Estimated >60 >60 [facility] ml/min/1.7 LAB[facility] 3m2 GFR, Est., If >60 >60 [facility] Black ml/min/1.7 LAB[facility]ATORIES 3m2 Specimen Anatomical Collection Method Collection Time Receive d Time (Source) Location / / Volume Laterality 02/23/2014 1:40 PM 4 1:53 CDT PM CDT Narrative [facility] - 02/23/2014 4:13 PM C DT Performed at [facility], [address] [place] [address] ??[phone] Orlando Mckinley MD LAB_1 Performing Organization Address [facility]/ZIP Code Phon e Number [facility] [phone] CALCIUM [0109] (02/23/2014 1:40 PM CDT) athologist Signature Calcium 10.1 8.4 - 10.2 [facility] mg/dl Specimen Anatomical Collection Method Collection Time Receive d Time (Source) Location / / Volume Laterality 02/23/2014 1:40 PM 4 1:53 CDT PM CDT Narrative [facility] - 02/23/2014 4:13 PM C DT Performed at [facility], [address] [place] [address] ??[phone] Orlando Mckinley MD LAB_1 Performing Organization Address [facility] Phon e Number [facility] [phone] ALT (SGPT) [0129] (02/23/2014 1:40 PM CDT) athologist Signature ALT (SGPT) 20 0 - 69 U/L [facility] Specimen Anatomical Collection Method Collection Time Receive d Time (Source) Location / / Volume Laterality 02/23/2014 1:40 PM 4 1:53 CDT PM CDT Narrative [facility] - 02/23/2014 4:13 PM C DT Performed at [facility], [address] [place] [address] ??[phone] Orlando Mckinley MD LAB_1 Performing Organization Address City/[facility]/ZIP Code Phon e Number [facility] [phone] AST [0128] (02/23/2014 1:40 PM CDT) P athologist Signature AST (SGOT) 27 0 - 66 U/L [facility] Specimen Anatomical Collection Method Collection Time Receive d Time (Source) Location / / Volume Laterality 02/23/2014 1:40 PM 4 1:53 CDT PM CDT Narrative [facility] - 02/23/2014 4:13 PM C DT Performed at [facility], [address] [place] [address] ??[phone] Orlando Mckinley MD LAB_1 Performing Organization Address [facility] Phon e Number [facility] [phone] HEPATITIS C AB(aka ANTI-HCV) [[id number]] (02/23/2014 1:40 PM CDT) [facility] [employer] Method Time Signature Anti-HCV Negative (Non NEGNR [facility] Reactive) LABORATORIES Comment: Does Not Rule Out Infection wit h HCV Specimen Anatomical Collection Method Collection Time Receive d Time (Source) Location / / Volume Laterality 02/23/2014 1:40 PM 4 1:53 CDT PM CDT Narrative [facility] - 02/26/2014 12:15 PM CDT Performed at [facility], [address] [place] [address] ??[phone] Orlando Mckinley MD LAB_1 Performing Organization Address [facility] Phon e Number [facility] [phone] (ABNORMAL) UA MICRO IF [3307] (02/23/2014 1:40 PM CDT) [facility] Method Time Signature Urine Color Yellow [facility] Urine Clarity Clear [facility] Sp Gr 1.010 1.005 - [facility] 1.030 [facility] Leuk Tr (A) NEG [facility] Nitr Negative NEG [facility] pH 6.0 4.5 - 8.0 [facility] Prot Negative NEG mg/dl [facility] Gluc Negative NEG [facility] Ket Negative NEG [facility] Urob 0.2 0.2 - 1.0 [facility] EU/dl [facility] Bili Negative NEG [facility] Blood Tr (A) NEG [facility] Specimen Anatomical Collection Method Collection Time Receive d Time (Source) Location / / Volume Laterality 02/23/2014 1:40 PM 4 1:53 CDT PM CDT Narrative [facility] - 02/23/2014 1:59 PM C DT Performed at [facility], [address] [place] [address] ??[phone] Orlando Mckinley MD LAB_1 Performing Organization Address City/State/ZIP Code Phon e Number [facility] [phone] (ABNORMAL) HEMOGRAM/PLTS/DIFF [[id number]] (02/23/2014 1:40 PM CDT) [facility] Method Time Signature WBC 8.6 4.0 - [facility] 11.0 k/ul LAB[facility] RBC 4.21 4.0 - 5.2 [facility] M/ul [facility] Hemoglobin 11.7 (L) 12.0 - [facility] 16.0 g/dl [facility] HCT 35.4 (L) 36.0 - [facility] 46.0 % LAB[facility] MCV 84.1 80 - 100 [facility] fl [facility] MCH 27.8 26 - 34 [facility] pg [facility] MCHC 33.1 32 - 36 [facility] g/dl [facility] RDW 12.9 11.5 - [facility] 14.5 % LAB[facility] Platelets 353 150 - 450 [facility] k/ul [facility] PMN/Band 69 % [facility] Lymph 24 % [facility] Randall 6 % [facility] Eos 1 % [facility] Baso 0 % [facility] Neutrophil 5.9 1.8 - 7.7 [facility] Absolute k/ul [facility] Lymph Absolute 2.1 1.0 - 4.8 [facility] k/ul [facility] Randall Absolute 0.5 0.1 - 0.7 [facility] k/ul [facility] Eos Absolute 0.1 0.0 - 0.5 [facility] k/ul [facility] Baso Absolute 0.0 0.0 - 0.2 [facility] k/ul [facility] Immature Gran 0 % [facility] Imm Gran 0.0 0 k/ul [facility] Absolute [facility] Specimen Anatomical Collection Method Collection Time Receive d Time (Source) Location / / Volume Laterality 02/23/2014 1:40 PM 4 1:53 CDT PM CDT Narrative [facility] - 02/23/2014 3:50 PM C DT Performed at [facility], [address] [place] [address] ??[phone] Orlando Mckinley MD LAB_1 Performing Organization Address City/State/ZIP Code Phon e Number [facility] [phone] (ABNORMAL) ESR [0017] (02/23/2014 1:40 PM CDT) P athologist Signature ESR 43 (H) 0 - 20 [facility] mm/hr Specimen Anatomical Collection Method Collection Time Receive d Time (Source) Location / / Volume Laterality 02/23/2014 1:40 PM 4 1:53 CDT PM CDT Narrative [facility] - 02/23/2014 4:49 PM C DT Performed at [facility], [address] [place] [address] ??[phone] Orlando Mckinley MD LAB_1 Performing Organization Address City/State/ZIP Code Phon e Number [facility] [phone] documented in this encounter Visit Diagnoses Diagnosis Screening for thyroid disorder - Primary Pain in joint, multiple sites documented in this encounter
--- OUTSIDE RECORDS SUMMARY | 2022-03-10 15:58 | XMS_ITS | Encounter Summary ---
:1990 [facility] Address [address] [address] Care Team Providers Name Role Phone Unavailable Primary Care Provider Unavailable Reason for Visit Reason Comments Refill Encounter Details Date Type Department Care Team Description 07/28/2014 Refill [facility] [address] [place], [facility] BOARDING MOTHER, SHREDDING MACHINE KNIFE CHANGER [address] [place] [address] [place] [address] [phone] (Wo rk) Social History Tobacco Use Types [...] documented as of this encounter Nursing Notes Chrissie Paniagua LPN - 07/30/2014 8:11 AM CST Zantac refilled per protocol. Chrissie Paniagua LPN 07/30/2014 8:11 AM ER DIE CUTTING MACHINE OPERATOR documented in this encounter Plan of Treatment Not on filedocumented as of this encounter Visit Diagnoses Not on filedocumented in this encounter
--- OUTSIDE RECORDS SUMMARY | 2022-03-10 15:58 | XMS_ITS | Encounter Summary ---
:1990 Author Organization [facility] Address [address] [place] [address] Care Team Providers Name Role Phone Unavailable Primary Care Provider Unavailable Encounter Details Date Type Department Care Team Description 01/31/2015 [facility] Arthralgia [address] [place] [address] Social History Tobacco Use Types [...] Procedure Name Priority Date/Time Associated Comments Diagnosis ANTI-CCP AB Routine 01/31/2015 8:38 AM Arthralgia Results f or this CDT procedure are i n the results section. RHEUMATOID FACTOR, Routine 01/31/2015 8:38 AM Arthralgia Res ults for this QUANT CDT procedure are i n the results section. C-REACTIVE PROTEIN Routine 01/31/2015 8:38 AM Arthralgia Res ults for this CDT procedure are i n the results section. TSH, SENSITIVE (WITH Routine 01/31/2015 8:38 AM Arthralgia R esults for this REFLEX) CDT procedure are i n the results section. ESR Routine 01/31/2015 8:38 AM Arthralgia Results f or this CDT procedure are i n the results section. documented in this encounter Results CCP-AB (01/31/2015 8:38 AM CDT) athologist Signature Anti-CCP <1 0 - 6 U/ml [facility] Antibody [facility] Comment: INTERPRETATION OF RESULTS NEGATIVE ? <7 EQUIVOCAL ?7-10 POSITIVE ? >10 Specimen Anatomical Collection Method Collection Time Receive d Time (Source) Location / / Volume Laterality 01/31/2015 8:38 AM 5 8:43 CDT AM CDT Narrative [facility] - 02/04/2015 2:05 PM C DT Performed at [facility], [address] [place] [address] ??[phone] Orlando Mckinley MD LAB_1 Performing Organization Address City/[facility] Code Phon e Number [facility] [phone] RHEUMATOID FACTOR, QUANT (01/31/2015 8:38 AM CDT) athologist Signature Quant. Rheum. <9 0 - 11 [facility] Factor IU/ml [facility] Specimen Anatomical Collection Method Collection Time Receive d Time (Source) Location / / Volume Laterality 01/31/2015 8:38 AM 5 8:43 CDT AM CDT Narrative [facility] - 01/31/2015 1:19 PM C DT Performed at [facility], [address] [place] [address] ??[phone] Orlando Mckinley MD LAB_1 Performing Organization Address City/State/ZIP Code Phon e Number [facility] [phone] TSH, SENSITIVE with FT4, FT3 (if needed) (01/31/2015 8:38 AM CDT) athologist Signature TSH, with 2.293 0.300 - [facility] Reflex 5.000 LAB[facility]ATORIES uIU/ml Specimen Anatomical Collection Method Collection Time Receive d Time (Source) Location / / Volume Laterality 01/31/2015 8:38 AM 5 8:43 CDT AM CDT Narrative [facility] - 01/31/2015 1:31 PM C DT Performed at [facility], [address] [place] [address] ??[phone] Orlando Mckinley MD LAB_1 Performing Organization Address City/[facility] Phon e Number [facility] [phone] C-REACTIVE PROTEIN (01/31/2015 8:38 AM CDT) athologist Signature C-Reactive 0.8 0.0 - 0.9 [facility] Protein mg/dl [facility] Comment: Note: results are expressed in mg/dL. Specimen Anatomical Collection Method Collection Time Receive d Time (Source) Location / / Volume Laterality 01/31/2015 8:38 AM 5 8:43 CDT AM CDT Narrative [facility] - 01/31/2015 1:19 PM C DT Performed at [facility], [address] [place] [address] ??[phone] Orlando Mckinley MD LAB_1 Performing Organization Address [facility] [place] [facility] Phon e Number [facility] [phone] (ABNORMAL) ESR (01/31/2015 8:38 AM CDT) athologist Signature ESR 33 (H) 0 - 20 [facility] mm/hr Specimen Anatomical Collection Method Collection Time Receive d Time (Source) Location / / Volume Laterality 01/31/2015 8:38 AM 5 8:43 CDT AM CDT Narrative [facility] - 01/31/2015 2:59 PM C DT Performed at [facility], [address] [place] [address] ??[phone] Orlando Mckinley MD LAB_1 Performing Organization Address [facility] [place] [facility] Phon e Number [facility] [phone] documented in this encounter Visit Diagnoses Diagnosis Arthralgia Pain in joint, site unspecified documented in this encounter
--- OUTSIDE RECORDS SUMMARY | 2022-03-10 15:58 | XMS_ITS | Encounter Summary ---
:1990 [facility] Address [address] [place] [address] Care Team Providers Name Role Phone Unavailable Primary Care Provider Unavailable Reason for Visit Reason Comments EXAM,ROUTINE michelle 7 years ago, no DVA or N VA changes denies irritation and pain. Takes seasonal allergy OTC d rops. Plaquenil Check Had 10-2 today. on plaquenil for about a year. Consult/Transfer Care (Routine) - Closed Specialty Diagnoses / Procedures Referred By Contact Refer red To Contact Optometry Orlando Mckinley [facility] [place] [address] [place] [address] Phone: Fax: Referral ID Status Reason Start Date Expiration Date Visits Requ ested Visits Authorized [id number] Closed 01/31/2015 05/01/2016 1 1 Encounter Details Date Type Department Care Team Description 03/29/2015 Office Visit [facility] Tony Travis, Unspec ified inflammatory polyarthropathy (Primary Dx); [facility] Encounter for long-term (current) use of other medications [address] [address] [place], [place] [phone] Social History Tobacco Use Types Packs/Day Years [...] documented as of this encounter Progress Notes Tony Travis, OD - 03/29/2015 8:54 AM CDT HPI Chief Complaint Patient presents with ??? EXAM,ROUTINE michelle 7 years ago, no DVA or NVA changes denies irritation and pain. Takes seasonal allergy OTC drops. ??? Plaquenil Check Had 10-2 today. on plaquenil for about a year. History Reviewed Today's rooming note, PMH, ROS, Family History, Social History, Surgical History, Meds, Allergies, Vitals and Relevant Results Patient displays normal affect and orientation with no signs of distress Assessment 1) 400 mg Plaquenil X 1 yr for unspecified inflammatory polyarthropathy -no ocular side effects Plan Return to clinic in 1 year(s) for OCT and eye exam. RTC sooner with any vision change Tony Travis, AFTAB documented in this encounter Plan of Treatment Not on filedocumented as of this encounter Visit Diagnoses Diagnosis Unspecified inflammatory polyarthropathy ([facility]) - Primary Unspecified inflammatory polyarthropathy Encounter for long-term (current) use of other medications documented in this encounter
--- OUTSIDE RECORDS SUMMARY | 2022-03-10 15:58 | XMS_ITS | Encounter Summary ---
:1990 Author Organization [facility] Address [address] [place] [address] Care Team Providers Name Role Phone Unavailable Primary Care Provider Unavailable Reason for Visit Reason Comments Refill ranitidine (ZANTAC) 150 MG t ablet [Pharmacy Med Name: RANITIDINE 150 MG TABLET] Encounter Details Date Type Department Care Team Description 04/07/2016 Refill [facility] [address] Elaine Shultz MD Refill (ranitidine [facility] [address] JC SALDANA (ZANTAC) 150 MG tablet [address] [place] [address] [Pharmacy Med Name: [place] [address] RANITIDINE 150 MG [phone] TABLET]) Social History Tobacco Use Types Packs/Day [...] encounter Nursing Notes Zandra Bartholomew RN - 04/08/2016 9:40 AM CDT per standing order Zandra Bartholomew RN Interface, Out [employer] Query - 04/07/2016 1:26 PM CDT ranitidine (ZANTAC) 150 MG tablet [Pharmacy Med Name: RANITIDINE 150 MG TABLET] Protocol: H2 Blockers -> Refill x 6 months (until due for an office visit) Last qualifying visit: 07/30/2015 (in Family Practice) Next scheduled visit: None Last ordered: 09/30/2015 (190 days ago) QTY: 90, Refills: 3, Sig: take every morning. may take an additional dose at bedtime if needed (changed) Powered by [employer], Reference: [id number], 04/07/2016 1:26:12 PM CDT, Pool: TAMEKA BATISTA RN ([id number]) documented in this encounter Plan of Treatment Not on filedocumented as of this encounter Visit Diagnoses Not on filedocumented in this encounter
--- OUTSIDE RECORDS SUMMARY | 2022-03-10 15:58 | XMS_ITS | Encounter Summary ---
:1990 [facility] Address [address] [address] Care Team Providers Name Role Phone Unavailable Primary Care Provider Unavailable Reason for Visit Reason Comments CONSULT Nexplanon Encounter Details Date Type Department Care Team Description 04/05/2014 Office Visit [facility] Chaya Armando I nsertion of Obstetrics and MD implantable subdermal Gynecology [address] [address]OPEZ contraceptive (Primary [address] [place], [place] Dx) [place] [address] [phone] Social History Tobacco Use Types Packs/Day Years [...] as of this encounter Patient Instructions Patient InstructionsChaya Armando MD - 04/05/2014 1:18 PM CDT You may remove the brown wrap/bandage ~2PM on 04/06/14 and the small adhesive bandage ~2PM on 04/08/14. After insertion of Implanon or Nexplanon, you might feel some mild soreness or tenderness at the insertion site. It should not last more than a day or two and should not interfere with you usual activities. If you have pain or bleeding at the insertion site that does not resolve in a day or two, please call your clinic. Expect your menstrual periods to become irregular and unpredictable throughout the time you are using the Implanon or Nexplanon. The device must be removed three years after insertion. It may be removed sooner if you wish. 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 Was using OCP's at that time. Was seen by her PCP, who recommended an estrogen-free method for contraception. She was seen here and given options, was leaning toward Andreia, Nexplanon or depo provera. Was given 3mo more of her OCP until made a decision. Here today to discuss. Today, she has given it some thought and would like to get Nexplanon. We reviewed the r/b/a and common ae's of Nexplanon. She is currently on OCP's. Last IC was before her LMP. Currently, she has 1 or2 active pills left this pack. She is on no medications for her hyperlipidemia, but is on 2 meds forsome arthralgias, being evaluated by rheumatology. OBJECTIVE: Last menstrual period 03/13/2014. See procedure note below. >50% of the appt was spent in face to face counseling, total visit time was >15 min. ASSESSMENT: 23 yr old P0 with hyperlipidemia, to discuss alternative BC method PLAN: 1. Insert nexplanon, d/c OCP. See note below. Chaya Armando MD 04/05/2014, 12:58 PM Juliette Gaming, presents for insertion of the Nexplanon contraceptive gerda. She has been counseled regarding the risks, benefits and alternatives to Nexplanon. She has no contradictions to Nexplanon. Her questions have been answered. She signed the consent form and wishes to proceed with the insertiontoday. Pt is currently using oral contraceptives and has not missed any pills this month The inner side of the left upper arm was painted with betadine and infiltrated with 2.5 ml of 0.5% lidocaine. The Nexplanon gerda was inserted according to the manufacturers instructions without complications. The gerda was palpable under the skin after the insertion. Juliette Gaming was given post-insertion instructions. She understands that her menstrual periods are expected to become irregular and unpredictable throughout the time she is using the Nexplanon. She understands that the device must be removed at the end of three years and may be removed sooner if she wishes. She was instructed to return in 4-6 weeks for a follow up visit. Lot number [id number] Chaya Armando MD documented in this encounter Plan of Treatment Not on filedocumented as of this encounter Visit Diagnoses Diagnosis Insertion of implantable subdermal contr aceptive - Primary documented in this encounter
--- OUTSIDE RECORDS SUMMARY | 2022-03-10 15:58 | XMS_ITS | Encounter Summary ---
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
--- OUTSIDE RECORDS SUMMARY | 2022-03-10 15:58 | XMS_ITS | Encounter Summary ---
:1990 [facility] Address [address], [place] [address] Care Team Providers Name Role Phone Unavailable Primary Care Provider Unavailable Reason for Visit Reason Comments LAB RESULTS Discuss lab results that aliyah healy done in September. Encounter Details Date Type Department Care Team Description 12/14/2013 Office Visit Elaine López Fam ilichristine hyperlipidemia (Primary Dx); Practice Abnormal [facility] [address] [place] [address] [place] [phone] Social History Tobacco Use Types Packs/Day Years [...] Sign Reading Time Taken Comments Blood Pressure 120/80 12/14/2013 12:08 PM CDT Pulse 88 12/14/2013 12:08 PM CDT Temperature - - Respiratory Rate - - Oxygen Saturation - - Inhaled Oxygen Concentration - - Weight 68 kg (150 lb) 12/14/2013 12:08 PM CDT Height - - Body Mass Index 27.66 05/26/2013 10:49 AM CDT documented in this encounter Patient Instructions Patient Elaine Farrell MD - 12/14/2013 12:21 PM CDT Images from the original note were not included. High Cholesterol: After Your Visit Cholesterol is a type of fat in your blood. It is needed for many body functions, such as making newcells. Cholesterol is made by your body and also comes from food you eat. High cholesterol means that you have too much of the fat in your blood. LDL and HDL are part of your total cholesterol. LDL is the bad cholesterol that builds up inside the blood vessel tellez, making them too narrow. This reduces the flow of blood and can cause a heart attack or stroke. HDL is the good cholesterol that helps clear bad cholesterol from the body. You want your good cholesterol to be high and your bad cholesterol to be low. If you do this, you can reduce your chance of having a heart attack or a stroke. You can improve your cholesterol levels by eating less animal and trans fat and more vegetables. Getting regular exercise can also help. But for some people, cholesterol problems run in the family. If changes in diet and exercise don't improve your cholesterol levels, we will discuss using medicine. How can you care for yourself at home? ?? Eat a variety of foods every day. Good choices include fruits, vegetables, whole grains (like oatmeal), dried beans and peas, nuts and seeds, soy products (like tofu), and fat-free or low-fat dairy products. ?? Replace butter, margarine, and hydrogenated or partially hydrogenated oils with olive and canola oils. (Canola oil margarine without trans fat is fine.) ?? Replace red meat with fish, poultry, and soy protein (like tofu). ?? Limit processed and packaged foods like chips, crackers, and cookies. ?? Bake, broil, or steam foods instead of frying them. ?? Limit foods high in cholesterol, such as egg yolks. ?? Be physically active. Exercise increases your HDL, or good cholesterol level. Get at least 30 minutes of exercise on most days of the week. Walking is a good choice. You also may want to do other activities, such as running, swimming, cycling, or playing tennis or team sports. ?? Stay at a healthy weight or lose weight by making the changes in eating and physical activity presented above. Losing just a small amount of weight, even 5 to 10 pounds, can reduce your risk for having a heart attack or stroke. When should you call for help? Watch closely for changes in your health, and be sure to contact my care team if: ?? You need more help controlling your cholesterol. Where can you learn more? Go to ilab/[facility] and enter I865 in the search box. Last Revised: October 20, 2011 ?? [id number] [employer]. 05-14 Learning About High Cholesterol What is high cholesterol? Cholesterol is a type of fat in your blood. It is needed for many body functions, such as making newcells. Cholesterol is made by your body. It also comes from food you eat. There are different types of cholesterol. One type is LDL. This is the bad type. It builds up inside the blood vessel tellez and makes them too narrow. This reduces the flow of blood and can cause a heart attack or stroke. Another type is HDL. This is the good type. It helps clear bad cholesterol from the body. You want your HDL cholesterol to be high and your LDL cholesterol to be low. If you do this, you canreduce your chances of a heart attack or a stroke. High cholesterol has no symptoms. You may first find out that you have it when you are diagnosed with a problem caused by high cholesterol, such as a heart problem. How can you prevent high cholesterol? ?? Eat heart-healthy foods. ?? Eat fruits, vegetables, whole grains (like oatmeal), dried beans and peas, nuts and seeds, soy products (like tofu), and fat-free or low-fat dairy products. ?? Replace butter, margarine, and hydrogenated or partially hydrogenated oils with olive and canola oils. (Canola oil margarine without trans fat is fine.) ?? Replace red meat with fish, poultry, and soy protein (like tofu). ?? Limit processed and packaged foods like chips, crackers, and cookies. ?? Be active. Exercise can improve your cholesterol level. Get at least 30 minutes of exercise on most days of the week. Walking is a good choice. You also may want to do other activities, such as running, swimming, cycling, or playing tennis or team sports. ?? Stay at a healthy weight. ?? Don't smoke. Quitting smoking can help raise your good cholesterol. If you need help quitting, talk to your doctor about stop-smoking programs and medicines. These can increase your chances of quitting for good. How is high cholesterol treated? ?? Your doctor will suggest some lifestyle changes. For example, your doctor may ask you to eat healthy foods, quit smoking, lose weight, and be more active. ?? You may have to take medicine. Follow-up care is a wolff part of your treatment and safety. Be sure to make and go to all appointments, and call your doctor if you are having problems. It's also a good idea to know your test results and keep a list of the medicines you take. Where can you learn more? Go to ilab/[facility] and enter Q621 in the search box. Last Revised: September 21, 2012 ?? [id number] [employer]. Thyroid-Stimulating Hormone (TSH) Test: About This Test What is it? A thyroid-stimulating hormone (TSH) test is one of several blood tests used to check for thyroid gland problems. TSH causes the thyroid gland to make other important hormones that help control your body's metabolism. Why is this test done? This test is done to: ?? Find out whether the thyroid gland is working properly. ?? Find out if a problem with the thyroid is causing symptoms such as tiredness, weight gain, or weight loss. ?? Keep track of how well thyroid treatment is working. How can you prepare for the test? ?? In general, you don???t need to prepare before having this test. Your doctor may give you some specific instructions. What happens during the test? ?? A health professional takes a sample of your blood. What else should you know about the test? ?? This test may be done at the same time as tests to measure other thyroid hormones. ?? Your results will include an explanation of what a normal result is. This is called a reference range. It is just a guide. Your doctor will evaluate your results based on your health and other factors. This means that a value that falls outside the normal values listed may still be normal for you. How long does the test take? ?? The test will take a few minutes. What happens after the test? ?? You will probably be able to go home right away. ?? You can go back to your usual activities right away. Follow-up care is a wolff part of your treatment and safety. Be sure to make and go to all appointments, and call your doctor if you are having problems. It's also a good idea to keep a list of the medicines you take. Ask your doctor when you can expect to have your test results. Where can you learn more? Go to ilab/[facility] and enter K551 in the search box. Last Revised: December 16, 2012 ?? [id number] [employer]. Low Cholesterol, Low Saturated Fat, Low Total Fat Diet (Less than 300 milligrams cholesterol) CHOOSE AVOID Beverages ?? Coffee, tea, decaffeinated coffee, grain-based beverages ?? Skim milk including fluid, powdered and evaporated skim, skim buttermilk and chocolate skim milk made w/cocoa ?? Fruit juices & fruit drinks, vegetable juices, carbonated beverages ?? Whole milk and whole milk products, including fluids, condensed, evaporated and chocolate whole milk, 2% milk, 1 % milk ?? Malted milk, milkshakes, eggnogs Breads ?? Whole grain products are best ?? Most breads including enriched white bread, white, wheat, rye, raisin, oatmeal, Nepali, Belarusian and Rwandan muffin bread ?? Rwandan muffins, plain dinner rolls, hard rolls, hamburger and hot dog rolls ?? Saltines, matzo, michael crackers ?? Baked products and quick breads made with egg whites, egg substitutes or allowed whole eggs, skimmilk and allowed fats ?? Egg and cheese breads. Commercially prepared sweetrolls, donuts, muffins, biscuits, pancakes and waffles ?? Variety alliance party crackers, such as Ritz and HiHo's Cereals ?? Whole grain products are best ?? All cooked and dry cereals, except those omitted. ?? Use cereals containing OatBran (and no hydrogenated fats) frequently ?? Most commercially prepared granola cereals (read labels) ?? Cereals containing coconut. Cereals containing hydrogenated vegetable or animal fats. Desserts ?? Fruits of all kinds. Fruit ices, sherbets, gelatins, meringues, angelfood cake (including mixes) ?? Cakes, pies, cookies, frostings and puddings made with eggwhites, egg substitutes or allowed whole eggs; skim milk & allowed fats ?? Ice cream; ice milk ?? Commercially prepared cakes, pies, cookies, frostings, pudding or mixes for these products ?? Any dessert containing whole milk products, egg yolk, chocolate, coconut, saturated or hydrogenated vegetable and animal fats Fats ?? Polyunsaturated vegetable oils. Choose from the following oils: Canola, corn, cottonseed, safflower, sesame, soybean and sunflower oils Margarines prepared from the above oils or a combination of the above oils First ingredient on the label should be a liquid oil ?? Commercial mayonnaise or salad dressings, prepared from allowed oils without cheese or sour cream ?? Polyunsaturated cream substitutes. [place] and peanut oils may be used ?? Coconut, palm, palm kernel oils ?? Margarine made with unspecified fats ?? Margarine in which the first ingredient on the label is not an oil ?? Butter, lard, shortenings ?? Creams, including half & half, whipping and sour cream ?? Nondairy cream substitutes, both powered and liquid ?? Nondairy whipped toppings and nondairy sour cream substituted ?? Salad dressings made of unknown oils, sour cream or cheese Fruits ?? All fruits and fruit juices ?? None Meats/Meat Substitutes ?? Limit to 5-7 ounces of cooked meat per day. Choose from lean-appearing, easily trimmed beef, pork, ham, veal, zuleta, chicken, turkey, game hens ?? Freshwater and ocean fish. Shellfish, including clams, crab, lobster, oysters, scallops and shrimp ?? Three egg yolks per week ?? Peanut butter (non-hydrogenated preferred) DESIRED ?? Egg whites, commercial egg substitutes, containing no cholesterol ?? Soy protein meat substitutes ?? Dried peas and beans ?? Low fat, low cholesterol cheeses ?? Skim milk yogurt ?? Prime grade meats. Heavily marbled or fatty meats; hot dogs, sausage, olivo, lunch meats, 30% fat ground beef, goose or duck ?? Organ meats, including liver, kidney, sweetbreads, heart, brain ?? Pre-prepared frozen and canned meats and main dishes ?? More than three egg yolks per week ?? All cheese except those allowed ?? Whole and 2% milk yogurts Potatoes and Substitutes ?? All potatoes, rice, pasta prepared without fats ?? Commercially fried potatoes and pre-prepared products containing omitted fats, cream sauces and cheese sauces ?? Egg noodles Soups ?? Broth, boullion, dehydrated soups, homemade broth soups with fat removed ?? Homemade cream soups made with skim milk ?? All others Sweets (Use these foods in limited amounts) ?? Sugars and syrups ?? Pure sugar candy such as gumdrops, hard candy, jelly beans, marshmallows, non-chocolate mints ?? Jam, jelly, honey, marmalade ?? All candy containing chocolate, coconut, butter, hydrogenated fator buttered syrups Vegetables ?? Any fresh, canned or frozen vegetables ?? Vegetables commercially prepared in butter, cream or cheese sauces ?? Deep-fried vegetables Misc ?? All seasonings and condiments ?? Gravy made with fat-free broth ?? Cream sauces made with allowed ingredients ?? [place] ?? Use nuts in moderation, except those omitted ?? Gravy containing fat ?? Chocolate, chocolate substitutes ?? Coconut, macadamia nuts, cashews ?? Read labels for food containing saturated fats Special Notes: ?? Bake, broil, steam or stew all meets without the addition of fat. DO NOT MEDRANO FOODS! ?? Read labels. Avoid convenience foods containing greater than 5 gms of fat per serving ?? Avoid fast foods. ?? documented in this encounter Progress Notes Elaine Shultz MD - 12/14/2013 4:22 PM CDT This office note has been dictated. Elaine Shultz MD Elaine Shultz MD - 12/14/2013 12:00 AM CDT DATE OF SERVICE: 12/14/2013 SUBJECTIVE: This is a 23-year-old female present in the clinic today to discuss about her abnormal test results. 1. Hyperlipidemia. Has been diagnosed recently. The patient had a physical exam and her lipid has been checked which showed a significantly elevated LDL of 235, normal HDL, and triglyceride. Previously, her lipid profile has been checked back in 2011 and has been pretty much the same. She has a very strong family history of hyperlipidemia. Her mother has been diagnosed with hyperlipidemia at early age, too. The patient states that lately her diet was poor. She gained some weight, too. 2. Abnormal TSH level. Recently the patient's TSH level has been checked which has been mildly elevated, 6.1. Previous not available for review, never been done before. She is not aware about family history of thyroid disease. Generally feeling well. States that lately has weight gain, but her diet was poor, has a lot of stress in her life due to school. Otherwise, no other problem. PHYSICAL EXAM: Vital Signs: Blood pressure 120/80, heart rate 88. General: Not in acute distress. Overweight. Neck: Supple. Lungs: Clear bilaterally. Heart: Regular rhythm. Abdomen: Soft, nontender. No hepatosplenomegaly. Extremities: Lower extremities without any edema. ASSESSMENT AND PLAN: 23-year-old female with a few medical problems. 1. Hyperlipidemia. Discussed with the patient about abnormal test result. More likely familial. Discussed about treatment options which including treatment with lipid-lowering agent, diet, lifestyle modification, weight loss. The rogelio ent would like to discuss with her family first about the options, but definitely she will start with diet, lifestyle modification. Explained to the patient that more likely because of the familial hyperlipidemia she definitely will need treatment with statin. Recommend to check liver function test jeyson alexander. 2. Abnormal TSH level. Recommend check T3 and T4 today. Depending on what result we get, decide about next step. The patient is asymptomatic right now, may monitor closely. She understood, agreed with plan. Elaine Shultz MD GLK:tdm Dictated: 12/14/2013 16:25:25 Transcribed: 12/15/2013 07:01:06 Job: [id number] Doc: [id number] cc: documented in this encounter Plan of Treatment Not on filedocumented as of this encounter Results FREE T4 (12/14/2013 12:34 PM CDT) athologist Signature T4, Free 1.0 0.8 - 2.2 [facility] ng/dl Specimen Anatomical Collection Method Collection Time Receive d Time (Source) Location / / Volume Laterality 12/14/2013 12:34 12/14/2013 PM CDT 12:36 PM CDT Narrative [facility] - 12/14/2013 5:10 PM C DT Performed at [facility], [address] [place] [address] ??[id number] Elaine Shultz MD LAB_1 Performing Organization Address City/[facility] Phon e Number [facility] [phone] T3, FREE, SERUM (12/14/2013 12:34 PM CDT) athologist Signature T3,Free 4.5 2.8 - 5.2 [facility] pg/ml Specimen Anatomical Collection Method Collection Time Receive d Time (Source) Location / / Volume Laterality 12/14/2013 12:34 12/14/2013 PM CDT 12:36 PM CDT Narrative [facility] - 12/14/2013 5:10 PM C DT Performed at [facility], [address] [place] [address] ??[id number] Elaine Shultz MD LAB_1 Performing Organization Address City/[facility] Phon e Number [facility] [phone] ALT (SGPT) (12/14/2013 12:34 PM CDT) athologist Signature ALT (SGPT) 31 0 - 69 U/L [facility] Specimen Anatomical Collection Method Collection Time Receive d Time (Source) Location / / Volume Laterality 12/14/2013 12:34 12/14/2013 PM CDT 12:36 PM CDT Narrative [facility] - 12/14/2013 4:52 PM C DT Performed at [facility], [address] [place] [address] ??[id number] Elaine Shultz MD LAB_1 Performing Organization Address City/[facility]/ZIP Code Phon e Number [facility] [phone] AST (12/14/2013 12:34 PM CDT) athologist Signature AST (SGOT) 44 0 - 66 U/L [facility] Specimen Anatomical Collection Method Collection Time Receive d Time (Source) Location / / Volume Laterality 12/14/2013 12:34 12/14/2013 PM CDT 12:36 PM CDT Narrative [facility] - 12/14/2013 4:52 PM C DT Performed at [facility], [address] [place] [address] ??[id number] Elaine Shultz MD LAB_1 Performing Organization Address City/State/ZIP Code Phon e Number [facility] [phone] documented in this encounter Visit Diagnoses Diagnosis Familial hyperlipidemia - Primary Other and unspecified hyperlipidemia Abnormal TSH Other abnormal clinical finding Hypercholesterolemia Pure hypercholesterolemia Abnormal TSH Other abnormal clinical finding Screening, iron deficiency anemia Screening for iron deficiency anemia documented in this encounter
--- OUTSIDE RECORDS SUMMARY | 2022-03-10 15:58 | XMS_ITS | Encounter Summary ---
:1990 Author Organization [facility] Address [address], [place] [address] Care Team Providers Name Role Phone Unavailable Primary Care Provider Unavailable Reason for Visit Reason Comments Refill hydroxychloroquine (AKA PLAQ UENIL) 200 MG tablet [Pharmacy Med Name: HYDROXYCHLOROQUINE 200 MG TA B] Encounter Details Date Type Department Care Team Description 02/27/2016 Refill [facility] [address] (hydroxychloroquine [facility] MD Letty (AKA PLAQUENIL) [address] tablet [Pharmacy Med Name: [place] [address] [place], [place] HYDROXYCHLOROQUINE 200 MG [phone] [id number] TAB]) Social History Tobacco Use Types Packs/Day [...] documented as of this encounter Nursing Notes Shikha Son LPN - 03/03/2016 9:05 AM CDT Called and spoke c client. Client verbalizes understanding. Last visual field done 03/2015. Client will schedule f/u c Dr. Mckinley and opthalmology. Client transferred to appointment center to make future appointments. Please fill rx to listed pharmacy. Shikha Son LPN Shikha Son LPN - 02/27/2016 10:48 AM CDT Called and left message for client to return phone call. Awaiting return call. Shikha oSn LPN Ladi Linton MD - 02/27/2016 10:35 AM CDT She had not been seen for a year. She did not show to appt 08/06/2015. Is she still taking plaquenil? When was her last eye exam? She needs to schedule follow up with Dr. Mckinley first, and then I will refill the plaquenil. Ladi Linton MD Interface, Out Surescripts Prov Query - 02/27/2016 1:15 AM CDT hydroxychloroquine (AKA PLAQUENIL) 200 MG tablet [Pharmacy Med Name: HYDROXYCHLOROQUINE 200 MG TAB] - WARNING: Ensure the patient had an Eye Exam in the last 12 months. - REFILL: 3 months (if warnings resolved) - PROTOCOL: Hydroxychloroquine - RATIONALE: This is a courtesy refill. Patient is overdue for an office visit. This will be the last refill authorized by the protocol. - LAST QUALIFYING VISIT IN RHEUMATOLOGY: 01/31/2015 - NEXT SCHEDULED VISIT: None - LAST REFILLED ON: 05/27/2015, QTY: 180, Refills: 2, Sig: take 1 tab by mouth two times a day. (changed but equivalent) Powered by [employer], Reference: [id number], 02/27/2016 1:15:49 AM CDT, Pool: Leslietremaine Montiel ([id number]) documented in this encounter Plan of Treatment Not on filedocumented as of this encounter Visit Diagnoses Not on filedocumented in this encounter
--- OUTSIDE RECORDS SUMMARY | 2022-03-10 15:58 | XMS_ITS | Encounter Summary ---
:1990 [facility] Address [address] [address] Care Team Providers Name Role Phone Unavailable Primary Care Provider Unavailable Reason for Visit Reason Comments Encounter Details Date Type Department Care Team Description 02/27/2014 Telephone [facility] [address] Orlando Mckinley MD [facility] [address] [place] [address] Social History Tobacco Use Types Packs/Day Years [...] encounter Nursing Notes Shikha Son LPN - 02/27/2014 3:23 PM CDT Called and gave message to client. Client verbalizes understanding of message. Denies any questions or concerns at this time. Client transferred to appointment center to make future appointment. Shikha Son LPN Orlando Mckinley MD - 02/27/2014 3:15 PM CDT All the labs are normal, except the 2 non specific ones that suggest inflammation, but we dont see any. See me in next several weeks to discus.. TH documented in this encounter Plan of Treatment Not on filedocumented as of this encounter Visit Diagnoses Not on filedocumented in this encounter
--- OUTSIDE RECORDS SUMMARY | 2022-03-10 15:58 | XMS_ITS | Encounter Summary ---
:1990 Author [facility] Address [address] [place] [address] Care Team Providers Name Role Phone Unavailable Primary Care Provider Unavailable Reason for Visit Consult/Transfer Care (Routine) - Closed Specialty Diagnoses / Procedures Referred By Contact Refer red To Contact Optometry Orlando Mckinley [facility] [place] [address] [place] [address] Phone: Fax: Referral ID Status Reason Start Date Expiration Date Visits Requ ested Visits Authorized [id number] Closed 01/31/2015 05/01/2016 1 1 Encounter Details Date Type Department Care Team Description 03/29/2015 Office Visit [facility] [address] for long-term Ophthalmology Clinic (current) use of other [address] medications (Primary Dx) [place], [place] [phone] Social History Tobacco Use Types Packs/Day Years [...] documented as of this encounter Progress Notes Bria Prince COMT - 03/29/2015 8:15 AM CDT Visual Field: Visual Field 10-[address] Travis for DX plaquenil therapy performed by CHERISE Lomeli Patient currently taking the following drops: none No need to call with results - patient seeing provider today. CHERISE Lomeli documented in this encounter Plan of Treatment Scheduled Referrals Name Type Priority Associated Diagnoses Order [facility] OPTHALMOLOGY Referral Routine Ordered: 2014 documented as of this encounter Visit Diagnoses Diagnosis Encounter for long-term (current) use of other medications - Primary documented in this encounter
--- OUTSIDE RECORDS SUMMARY | 2022-03-10 15:58 | XMS_ITS | Encounter Summary ---
:1990 Author Organization [facility] Address [address] [place] [address] Care Team Providers Name Role Phone Unavailable Primary Care Provider Unavailable Reason for Visit Procedure/Equipment (Routine) - Closed Specialty Diagnoses / Procedures Referred By Contact Refer red To Contact Lorrie Bhat APRN, CNP [address] [place] [address] Referral ID Status Reason Start Date Expiration Date Visits Requ ested Visits Authorized [id number] Closed 05/01/2014 07/31/2015 1 1 Encounter Details Date Type Department Care Team Description 05/28/2014 Procedure Visit [facility] Christina Palacio, [facility] [address] [facility] [address] [place] [address] [address] [place], [place] [address] Social History Tobacco Use [...] documented as of this encounter Progress Notes Stone Palacio MD - 05/29/2014 3:27 PM CDT Quick Note: Normal biopsies from terminal ileum (last portion of small bowel) and colon. No evidence for Crohn's disease, ulcerative colitis or microscopic colitis. Rec: - RTC with PMD, Lorrie Hardin NP as scheduled Stone Palacio MD 05/29/2014, 3:27 PM Stone Palacio MD - 05/28/2014 3:42 PM CDT CC: Colonoscopy HPI: Patient here for colonoscopy. Patient has a history of Diarrhea. PMH: Reviewed PSH: Reviewed Social Hx: Reviewed Allergies: Reviewed Medications: Reviewed Family History: Reviewed (No history of colon cancer) Review of Systems: Pertinent ROS done. Exam: Alert, awake and oriented. Vitals: See Provation nursing notes. Head and Neck: Examined Chest: Clear to auscultation. No wheezes or rales. CVS: Regular, rate, rhythm. Abdomen: Abdomen soft, non-tender without masses or organomegaly. Extremities: Examined ASA: P2 A patient with mild systemic dz Plan: Colonoscopy Potential risks and complications of procedure have been discussed with patient. Stone Palacio MD 05/28/2014, 3:42 PM documented in this encounter Plan of Treatment Not on filedocumented as of this encounter Procedures Procedure Name Priority Date/Time Associated Diagnosis Comme nts COLONOSCOPY Routine 05/28/2014 3:47 PM Screen for colon Resul ts for this CDT cancer procedure are i n the results section . SURGICAL PATH Routine 05/28/2014 7:00 AM Screen for colon Resu lts for this CDT cancer procedure are i n the results section . documented in this encounter Results COLONOSCOPY [[id number]] (05/28/2014 3:47 PM CDT) Specimen (Source) Anatomical Collection Method Collection Time Re ceived Time Location / / Volume Laterality 05/28/2014 3:47 PM CDT Narrative [facility] - 05/28/2014 4:16 PM CDT Indications: ? Chronic diarrhea Providers: ? Stone king MD, Billy Martinez RN Referring MD: ?Elaine Swain ba, MD Medicines: ? Fentanyl IV 15 0 mcgs, Versed/Midazolam IV 3 mgs Complications: ? No immediate com plications. Estimated [...] to ? auscultat ion. CV Examination: normal. ? - ASA Gra de Assessment: II [...] re-assessed ? after the procedure. ? After I o btained informed consent, the scope was ? passed un lamar direct vision. Prior to sedation, ? patient i dentity and procedure was reverified. ? Throughou t the procedure, the patient's blood ? pressure, pulse, and oxygen saturations were ? monitored continuously. The Colonoscope was ? introduce d through the anus and advanced to the ? terminal ileum, with identification of the ? appendice al orifice and IC valve. The colonoscopy was ? performed without difficulty. The patient tolerated ? the proce dure well. The quality of the bowel ? preparati on was good. Findings: ? The terminal ileum appeared cherise l. Biopsies were taken with a cold ? forceps for histology. ? Normal mucosa was found in the en tire colon. Biopsies were taken with ? a cold forceps from the entire co quirino for evaluation of microscopic ? colitis. Impression: ?- The examined portion of the ileum was normal. ? Biopsied. ? - Normal mucosa in the entire examined colon. ? Biopsied. Recommendation: ?- High fiber t. ? - Await p athology results. ? - Return to referring physician as previously ? scheduled . Procedure Code(s): ?? --- Professional - -- ? 52850, Co lonoscopy, flexible, proximal to splenic ? flexure; with biopsy, single or multiple Diagnosis Code(s): ?? --- Professional - -- ? 787.91, D iarrhea CPT copyright 2013 [employer]. All rights reserved. The codes documented in this report are preliminary and upon hand loom weaver review may be revised to meet current complianc e requirements. Attending Participation: Stone Palacio MD 05/28/2014 4:16 PM Number of Addenda: 0 Note Initiated On: 05/28/2014 3:47 PM Procedure Note Stone Palacio MD - 05/28/2014Formatt ing of this note might be different from the original. Indications: Chronic diarrhea Providers: Stone Palacio MD, Billy Martinez RN Referring MD: Elaine Shultz MD Medicines: Fentanyl IV 150 mcgs, Versed/ Midazolam IV 3 mgs Complications: No immediate complication s. Estimated blood [...] Examination: clear to auscultation. CV Examination: normal. - ASA Grade Assessment: II - A [...] wa s re-assessed after the procedure. After I obtained informed consent, the scope was passed under direct vision. Prior to se dation, patient identity and procedure was reve rified. Throughout the procedure, the patient's blood pressure, pulse, and oxygen saturations were monitored continuously. The Colonoscope was introduced through the anus and advance d to the terminal ileum, with identification of the appendiceal orifice and IC valve. The c olonoscopy was performed without difficulty. The patie nt tolerated the procedure well. The quality of the bowel preparation was good. Findings: The terminal ileum appeared normal. Bio psies were taken with a cold forceps for histology. Normal mucosa was found in the entire c olon. Biopsies were taken with a cold forceps from the entire colon fo r evaluation of microscopic colitis. Impression: - The examined portion of th e ileum was normal. Biopsied. - Normal mucosa in the entire examined colon. Biopsied. Recommendation: - High fiber diet. - Await pathology results. - Return to referring physician as prev iously scheduled. Procedure Code(s): --- Professional --- 60988, Colonoscopy, flexible, proximal to splenic flexure; with biopsy, single or multipl e Diagnosis Code(s): --- Professional --- 787.91, Diarrhea CPT copyright 2013 [employer]. All rights reserved. The codes documented in this report are preliminary and upon hand loom weaver review may be revised to meet current complianc e requirements. Attending Participation: Stone Palacio MD 05/28/2014 4:16 PM Number of Addenda: 0 Note Initiated On: 05/28/2014 3:47 PM Stone Palacio MD DIGESTIVE CARE Performing Organization Address City/State/ZIP Code Phon e Number [facility] [place], [place] Surgical Path - Colonoscopy (05/28/2014 7:00 AM CDT) [facility] gist Method Time Signature Histology (NOTE) [facility] Final Report [facility] Patient Name: JULIETTE GAMING Taken: 05/28/2014 Received: 05/28/2014 Reported: 05/29/2014 Physician(s): STONE PALACIO ([id number]) ? Final Pathologic Diagnosis A. Terminal ileum, biopsy -- No diagnostic abnormality B. Colon, random, biopsy -- No diagnostic abnormality Electronically Signed Out By ? Libra Oscar MD ??([id number] ) Procedures/Addenda Clinical History Diarrhea Gross Description A. ??The specimen is received in formalin and labeled with t he patient's name and A. ??The specimen consists of a 0.2 cm alexis-white irregular shaped soft tissue fragment. ??The specimen is barbara tered and entirely submitted in one cassette. B. ??The specimen is received in formalin and labeled with t he patient's name and B. ??The specimen consists of six alexis-w ariana irregular soft tissue fragments averaging 0.1 cm. ??The spec imen is filtered and entirely submitted in one cassette. ??js jds/05/28/2014 Microscopic Description Microscopic examination is performed on two slides. ?? ejaa/05/29/2014 Libra Oscar MD ??([id number] ) [facility] Department of Pathology [address] [place] [address] ??[id number] Specimen Anatomical Collection Method Collection Time Receive d Time (Source) Location / / Volume Laterality COLON STRUCTURE / 05/28/2014 7:00 AM 05/03 6:19 Unknown CDT PM CDT COLON STRUCTURE / 05/28/2014 7:00 AM 05/03 6:19 Unknown CDT PM CDT Stone Palacio MD LAB_1 Performing Organization Address City/State/ZIP Code Phon e Number [address] [address] documented in this encounter Visit Diagnoses Diagnosis Screen for colon cancer - Primary Special screening for malignant neoplasm s, colon documented in this encounter
--- OUTSIDE RECORDS SUMMARY | 2022-03-10 15:58 | XMS_ITS | Encounter Summary ---
:1990 [facility] [address] [address] Care Team Providers Name Role Phone Unavailable Primary Care Provider Unavailable Reason for Visit Reason Comments Refill Encounter Details Date Type Department Care Team Description 09/03/2015 Refill [facility] [address] Juan Ramon Cole MD Refill [facility] [address] [place] [address] [place] [address] [phone] Social History Tobacco Use Types Packs/Day Years [...] Notes Interface, Out Surescripts Prov Query - 09/03/2015 1:06 PM CST hydroxychloroquine (AKA PLAQUENIL) 200 MG tablet [Pharmacy Med Name: HYDROXYCHLOROQUINE 200 MG TAB] - WARNING #1: The patient should have outstanding refills for this medication until 11/23/2015. - WARNING #2: Ensure the patient had an Eye Exam in the last 12 months. - REFILL: 6 months (if warnings resolved) - PROTOCOL: Hydroxychloroquine - RATIONALE: This refill should last until the patient is due for an office visit. - LAST QUALIFYING VISIT IN RHEUMATOLOGY: 01/31/2015 - NEXT SCHEDULED VISIT: None - LAST REFILLED ON: 05/27/2015, QTY: 180, Refills: 2, Sig: take 1 tab by mouth two times a day. (unchanged) Powered by [employer], Reference: [id number], 09/03/2015 1:06:26 PM Bayron BRYANT: Kelsey Sandoval Care Team ([id number]) TTE documented in this encounter Plan of Treatment Not on filedocumented as of this encounter Visit Diagnoses Not on filedocumented in this encounter
--- OUTSIDE RECORDS SUMMARY | 2022-03-10 15:58 | XMS_ITS | Encounter Summary ---
:1990 Author Organization [facility] Address [address] [address] Care Team Providers Name Role Phone Unavailable Primary Care Provider Unavailable Reason for Visit Reason Comments CONSULT Encounter Details Date Type Department Care Team Description 02/23/2014 Office Visit [place] Orlando Valle Pain in joint, multiple site s (Primary Dx); [address] Michael Soto MD Positive MELISSA (antinuclear antibody) [place], [place] [address] [address] [phone] Social History Tobacco Use Types Packs/Day Years [...] Sign Reading Time Taken Comments Blood Pressure 108/67 02/23/2014 1:14 PM CDT Pulse 86 02/23/2014 1:14 PM CDT Temperature - - Respiratory Rate - - Oxygen Saturation - - Inhaled Oxygen Concentration - - Weight 68.7 kg (151 lb 6.4 oz) 02/23/2014 1:14 PM CDT Height 156.8 cm (5' 1.75) 02/23/2014 1:14 PM CDT Body Mass Index 27.92 02/23/2014 1:14 PM CDT documented in this encounter Patient Instructions Patient InstructionsOrlando Mckinley MD - 02/23/2014 1:34 PM CDT Blood tests today Will call about 1 week with results documented in this encounter Progress Notes Orlando Mckinley MD - 02/23/2014 1:39 PM CDT Chief Complaint: The patient is sent by Dr. Elder Curtis for evaluation of arthralgias and positive antinuclear antibody Present Illness: Pleasant 23-year-old generally healthy woman who for the past four years has had arthralgias in wrists shoulders knees occasionally ankles. Worse with use better with rest. No particular morning stiffness. Has not noticed any swelling. Tends to wax and wane. Does not take anything forit. She does have some fatigability never feels refreshed this is been long- standing. No unusual headaches. Some slight patchiness of her stomach no menstrual cramps of significance She denies any other symptoms. Specifically she has no history of rash photosensitivity Raynauds pleurisy or pericarditis, bleeding or clotting disorders or miscarriages. No history of renal hematologic or neurologic disorder. 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 Norgestimate-Eth Estradiol (SPRINTEC 28) 0.25-35 MG-MCG tablet Take 1 Tab by mouth daily. ??? Psyllium-Calcium (FIBER PLUS CALCIUM OR) Allergies: No Known Allergies ROS: Except as above, the rest of a 10 point ROS is negative Exam: Ye moves about comfortably. Conjunctiva sclera unremarkable fundus unremarkable oropharynx adequate mucosal moisture no lymphadenopathy or sialadenopathy no thyromegaly. Chest clear auscultation. Skin reveals no rash no periungual erythema no psoriasiform lesions. Shoulders elbows wrists MCPs PIPs hips knees ankles full motion without synovitis. She is minimally hypermobile fingers but not the rest of elbows with the knees. Deep tendon reflexes are symmetric and brisk her strength is normal. Labs two years ago demonstrated negative rheumatoid factor but slight elevation of sedimentation rate and CRP. She has had recently a positive MELISSA 08/02/1958 Assessment: Low-grade arthralgias with normal exam. The MELISSA really does not correlate with any clinical symptoms. However given her complaints of previous elevated sedimentation rate and CRP and the lack of tender points we will go ahead and do some further laboratory evaluation. This has somewhat of a little fibromyalgia look however I will call her with results documented in this encounter Plan of Treatment Not on filedocumented as of this encounter Results DNA DOUBLE STRANDED ANTIBODY (02/23/2014 1:40 PM CDT) Component Value Ref Test Analysis Performed At [facility] Range Method Time Signature dsDNA 6 0 - 24 MG Antibody IU LABORATORIES dsDNA Ab (NOTE) [facility] Interpreta. ds-DNA Ab ? Interpretation LABORATORIES VALUE [...] PM 4 1:53 CDT PM CDT Narrative [facility] - 02/27/2014 2:39 PM C DT Performed at [facility], [address] [place] [address] ??[phone] Orlando Mckinley MD LAB_1 Performing Organization Address City/State/ZIP Code Phon e Number [facility]IES [phone] RHEUMATOID FACTOR, QUANT(aka RFQ) [3025] (02/23/2014 1:40 PM CDT) athologist Signature Quant. Rheum. <9 0 - 11 [facility] Factor IU/ml LABORATORIES Specimen Anatomical Collection Method Collection Time Receive d Time (Source) Location / / Volume Laterality 02/23/2014 1:40 PM 4 1:53 CDT PM CDT Narrative [facility] - 02/23/2014 4:13 PM C DT Performed at [facility], [address] [place] [address] ??[phone] Orlando Mckinley MD LAB_1 Performing Organization Address [facility] Phon e Number [facility] [phone] LYME ANTIBODY [0537] (02/23/2014 1:40 PM CDT) athologist Signature Lyme Antibody 0.38 0 - 0.74 [facility] OD Ratio LABORATORIES Comment: Negative Specimen Anatomical Collection Method Collection Time Receive d Time (Source) Location / / Volume Laterality 02/23/2014 1:40 PM 4 1:53 CDT PM CDT Narrative [facility] - 02/26/2014 12:08 PM CDT Performed at [facility], [address] [place] [address] ??[phone] Orlando Mckinley MD LAB_1 Performing Organization Address [facility] Phon e Number [facility] [phone] ANTI SS-A (RO) (02/23/2014 1:40 PM CDT) [facility] gist Method Time Signature Anti-SSA (Ro) <0.3 0 - 6.9 [facility] result U/mL LABORATORIES Anti-SSA (NOTE) [facility] Interpreta. Anti-SSA (Ro) ?Interpretation LABORATORIES VALUE ?of Test Results 0-6.9 ? Negative 7.0-10.0 ?Equivocal >10.0 ? Positive Specimen Anatomical Collection Method Collection Time Receive d Time (Source) Location / / Volume Laterality 02/23/2014 1:40 PM 4 1:53 CDT PM CDT Narrative [facility] - 02/26/2014 11:03 AM CDT Performed at [facility], [address] [place] [address] ??[phone] Orlando Mckinley MD LAB_1 Performing Organization Address [facility] Phon e Number [facility] [phone] ANTI SS-B (LA) (02/23/2014 1:40 PM CDT) [facility] Method Time Signature Anti-SSB (La) <0.3 0 - 6.9 [facility] Result U/mL LABORATORIES Anti-SSB (NOTE) [facility] Interpreta. Anti-SSB (La) ?Interpretation LABORATORIES VALUE ?of Test Results 0-6.9 ? Negative 7.0-10.0 ?Equivocal >10.0 ? Positive Specimen Anatomical Collection Method Collection Time Receive d Time (Source) Location / / Volume Laterality 02/23/2014 1:40 PM 4 1:53 CDT PM CDT Narrative [facility] - 02/26/2014 11:03 AM CDT Performed at [facility], [address] [place] [address] ??[phone] Orlando Mckinley MD LAB_1 Performing Organization Address City/[facility] Phon e Number [facility] [phone] AUTOABY TO JO1 AG (02/23/2014 1:40 PM CDT) Component Value Ref Test Analysis Performed At [facility] Range Method Time Signature DAKOTA-1 Antibody <1.0 NEG [facility] Reference range: <1.0 NEG LABO RATORIES Unit: AI DAKOTA-1 Antibody (NOTE) [facility] Test performed at [place] [address] ??[phone] Director: MELVA SOTO MD Specimen Anatomical Collection Method Collection Time Receive d Time (Source) Location / / Volume Laterality 02/23/2014 1:40 PM 4 1:53 CDT PM CDT Orlando Mckinley MD LAB_1 Performing Organization Address City/[facility]/ZIP Code Phon e Number [facility] [phone] AUTOABY TO SCL 70 AG (02/23/2014 1:40 PM CDT) [facility] Method Time Signature SCL-70 Ab <1.0 NEG [facility] Reference range: <1.0 NEG LABO RATORIES Unit: AI SCL-70 Ab (NOTE) [facility] Test performed at [place] [address] ??[phone] Director: MELVA SOTO MD Specimen Anatomical Collection Method Collection Time Receive d Time (Source) Location / / Volume Laterality 02/23/2014 1:40 PM 4 1:53 CDT PM CDT Orlando Mckinley MD LAB_1 Performing Organization Address [facility] Phon e Number [facility] [phone] SM AND SM/BOOTS AND SHOES SUPERVISOR ANTIBODIES (02/23/2014 1:40 PM CDT) Component Value Ref Test Analysis Performed At [facility] Range Method Time Signature Sm Antibody <1.0 NEG [facility] Reference range: <1.0 NEG LABO RATORIES Unit: AI Sm/BOOTS AND SHOES SUPERVISOR <1.0 NEG [facility] Antibody Reference range: <1.0 NEG LABO RATORIES Unit: AI Sm/BOOTS AND SHOES SUPERVISOR (NOTE) [facility] Antibody LAB[facility] Test performed at [place] [address] ??[phone] Director: MELVA SOTO MD Specimen Anatomical Collection Method Collection Time Receive d Time (Source) Location / / Volume Laterality 02/23/2014 1:40 PM 4 1:53 CDT PM CDT Orlando Mckinley MD LAB_1 Performing Organization Address City/[facility]/ZIP Code Phon e Number [facility] [phone] (ABNORMAL) C-REACTIVE PROTEIN(aka CRP) [0236] (02/23/2014 1:40 PM CDT) [facility] Method Time Signature C-Reactive 2.9 (H) 0.0 - 0.9 [facility] Protein mg/dl LABORATORIES Comment: Note: results are expressed in mg/dL. Specimen Anatomical Collection Method Collection Time Receive d Time (Source) Location / / Volume Laterality 02/23/2014 1:40 PM 4 1:53 CDT PM CDT Narrative [facility] - 02/23/2014 4:13 PM C DT Performed at [facility], [address] [place] [address] ??[phone] Orlando Mckinley MD LAB_1 Performing Organization Address [facility] Phon e Number [facility] [phone] CCP AB [4287] (02/23/2014 1:40 PM CDT) [...] - 02/26/2014 11:03 AM CDT Performed at [facility], [address] [place] [address] ??[phone] Orlando Mckinley MD LAB_1 Performing Organization Address [facility] Phon e Number [facility] [phone] CREATININE / GFR [3711] (02/23/2014 1:40 PM [...] 02/23/2014 4:13 PM C DT Performed at [facility], [address] [place] [address] ??[phone] Orlando Mckinley MD LAB_1 Performing Organization Address City/[facility]/ZIP Code Phon e Number [facility] [phone] CALCIUM [0109] (02/23/2014 1:40 PM CDT) P athologist Signature Calcium 10.1 8.4 - 10.2 [facility] mg/dl Specimen Anatomical Collection Method Collection Time Receive d Time (Source) Location / / Volume Laterality 02/23/2014 1:40 PM 4 1:53 CDT PM CDT Narrative [facility] - 02/23/2014 4:13 PM C DT Performed at [facility], [address] [place] [address] ??[phone] Orlando Mckinley MD LAB_1 Performing Organization Address [facility]/ZIP Code Phon e Number [facility] [phone] ALT (SGPT) [0129] (02/23/2014 1:40 PM CDT) athologist Signature ALT (SGPT) 20 0 - 69 U/L [facility] Specimen Anatomical Collection Method Collection Time Receive d Time (Source) Location / / Volume Laterality 02/23/2014 1:40 PM 4 1:53 CDT PM CDT Narrative [facility] - 02/23/2014 4:13 PM C DT Performed at [facility], [address] [place] [address] ??[phone] Orlando Mckinley MD LAB_1 Performing Organization Address City/[facility] Phon e Number [facility] [phone] AST [0128] (02/23/2014 1:40 PM CDT) athologist Signature AST (SGOT) 27 0 - 66 U/L [facility] Specimen Anatomical Collection Method Collection Time Receive d Time (Source) Location / / Volume Laterality 02/23/2014 1:40 PM 4 1:53 CDT PM CDT Narrative [facility] - 02/23/2014 4:13 PM C DT Performed at [facility], [address] [place] [address] ??[phone] Orlando Mckinley MD LAB_1 Performing Organization Address City/[facility]/ZIP Code Phon e Number [facility] [phone] HEPATITIS C AB(aka ANTI-HCV) [0982] (02/23/2014 1:40 PM CDT) [facility] Method Time Signature Anti-HCV Negative (Non NEGNR [facility] Reactive) LABORATORIES Comment: Does Not Rule Out Infection wit h HCV Specimen Anatomical Collection Method Collection Time Receive d Time (Source) Location / / Volume Laterality 02/23/2014 1:40 PM 4 1:53 CDT PM CDT Narrative [facility] - 02/26/2014 12:15 PM CDT Performed at [facility], [address] [place] [address] ??[phone] Orlando Mckinley MD LAB_1 Performing Organization Address [facility] Code Phon e Number [facility] [phone] (ABNORMAL) UA MICRO IF [3307] (02/23/2014 1:40 PM CDT) [facility] Method Time Signature Urine Color Yellow [...] 02/23/2014 1:59 PM C DT Performed at [facility], [address] [place] [address] ??[phone] Orlando Mckinley MD LAB_1 Performing Organization Address City/[facility]/ZIP Code Phon e Number [facility] [phone] (ABNORMAL) HEMOGRAM/PLTS/DIFF [3656] (02/23/2014 1:40 PM CDT) Patholo gist Method Time Signature WBC 8.6 4.0 - [...] [facility] Lymph 24 % [facility] Benson 6 % [facility] Eos 1 % [facility] Baso 0 % [facility] Neutrophil 5.9 1.8 - 7.7 [facility] Absolute k/ul LABORATORIES Lymph Absolute 2.1 1.0 - 4.8 [facility] k/ul LAB[facility] Benson Absolute 0.5 0.1 - 0.7 [facility] k/ul [...] 02/23/2014 3:50 PM C DT Performed at [facility], [address] [place] [address] ??[phone] Orlando Mckinley MD LAB_1 Performing Organization Address City/State/ZIP Code Phon e Number [facility] [phone] (ABNORMAL) ESR [0017] (02/23/2014 1:40 PM CDT) P athologist Signature ESR 43 (H) 0 - 20 [facility] mm/hr Specimen Anatomical Collection Method Collection Time Receive d Time (Source) Location / / Volume Laterality 02/23/2014 1:40 PM 4 1:53 CDT PM CDT Narrative MG LAB[facility]ATORIES - 02/23/2014 4:49 PM C DT Performed at [facility], [address] [place] [address] ??[phone] Orlando Mckinley MD LAB_1 Performing Organization Address City/State/ZIP Code Phon e Number [facility] [phone] documented in this encounter Visit Diagnoses Diagnosis Pain in joint, multiple sites - Primary Positive MELISSA (antinuclear antibody) Other and unspecified nonspecific immuno logical findings Screening for thyroid disorder - Primary Pain in joint, multiple sites documented in this encounter
--- OUTSIDE RECORDS SUMMARY | 2022-03-10 15:58 | XMS_ITS | Encounter Summary ---
:1990 Author Organization [facility] Address [address] [address] Care Team Providers Name Role Phone Unavailable Primary Care Provider Unavailable Reason for Visit Reason Onset Date Comments FYI 03/13/2014 Encounter Details Date Type Department Care Team Description 03/13/2014 Telephone [facility] [address] Orlando Mckinley MD [facility] [address] [place] [address] Social History Tobacco Use Types Packs/Day Years [...] encounter Nursing Notes Shikha Son LPN - 03/13/2014 11:27 AM CDT Called and spoke c client. Client verbalizes understanding. Requests rx be sent to listed pharmacy. Client will call appointment center at later time to schedule 4 month f/u appointment. 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 Twice a day,and cut prednisone by 1/2 tab in 3 weeks and every 3 weeks See me in 4 months. WHat pharmacy? TH Jessika Hermosillo - 03/13/2014 9:26 AM CDT Patient left message on phone that she was to call back and let the Dr know how he is doing after starting prednisone. He states it took away a lot of his pain but still having pain in shoulder. Statesit did not take away all of the pain. documented in this encounter Plan of Treatment Not on filedocumented as of this encounter Visit Diagnoses Not on filedocumented in this encounter
--- OUTSIDE RECORDS SUMMARY | 2022-03-10 15:58 | XMS_ITS | Encounter Summary ---
:1990 Author Organization [facility] Address [address] [place] [address] Care Team Providers Name Role Phone Unavailable Primary Care Provider Unavailable Reason for Referral Procedure/Equipment (Routine) - Closed Specialty Diagnoses / Procedures Referred By Contact Refer red To Contact Caio Bhat APRN, CNP [address] [place] [address] Referral ID Status Reason Start Date Expiration Date Visits Requ ested Visits Authorized [id number] Closed 05/01/2014 07/31/2015 1 1 Scheduling Instructions [facility] provider [facility] You may call [phone] to schedule yo ur appointment. If you prefer, a hearing healthcare practitioner will contact you within the next 3 busin ess days to assist you in setting up this appointment. Reason for Visit Reason Onset Date Comments RESULTS, TEST 04/26/2014 Encounter Details Date Type Department Care Team Description 04/26/2014 Telephone [facility] Oma Jaramillo RESULTS, TEST [facility] Soto C[facility] [address] [facility] [address] [place] [address] [place] [address] [phone] (Wo rk) Social History Tobacco Use Types [...] documented as of this encounter Nursing Notes Lashon Kwok RN - 05/01/2014 11:57 AM CDT Juliette called back, message relayed. - yes, zantac is helping - agreed to schedule the colonoscopy; call transferred to gi scheduling Lashon Kwok RN 05/01/2014 11:59 AM Caio Bhat APRN, MATILDA - 04/26/2014 4:47 PM CDT Called patient. Left message. All labs are normal. Recommend colonoscopy to evaluate for IBD. Also wondering how she has been doing with Zantac? Is it helping reflux? Caio Ferrari, MATILDA Lashon Kwok RN - 04/26/2014 2:47 PM CDT Pt had iron panel, ferritin, h pylori and celiac panel drawn on 04/12/14. Waiting for results note. Thanks. Lashon Kwok RN 04/26/2014 2:47 PM Fanny Mallory - 04/26/2014 11:48 AM CDT What test are you calling about: Lab results Who ordered it: caio mckeon [facility] done[facility] When did you have it done: 04-12-14 If a prescription is needed, would you like it filled at our [facility]??? pharmacy? no [[employer] Professional/Appt Center: Was the pharmacy entered into the Preferred Pharmacy field? Yes] Is it okay to leave detailed message on your voicemail? [phone] [[employer] Professional/Appt Center: If this call is after 3 p.m., communicate to patient: If we are not able to get back to you by the end of the day and your symptoms worsen please contact the Careline] [[employer] Professional: Inform patient that if they are active with online patient services they can receive their results online (only available for 12 years and younger and 18 years and older)] documented in this encounter Plan of Treatment Scheduled Referrals Name Type Priority Associated Diagnoses Order S chedule COLONOSCOPY-DIAGNOSTIC Referral Routine Order ed: 05/01/2014 documented as of this encounter Visit Diagnoses Not on filedocumented in this encounter
--- OUTSIDE RECORDS SUMMARY | 2022-03-10 15:58 | XMS_ITS | Encounter Summary ---
:1990 [facility] Address [address], [place] [address] Care Team Providers Name Role Phone Unavailable Primary Care Provider Unavailable Reason for Visit Reason Comments Ear Pain one week Encounter Details Date Type Department Care Team Description 07/30/2015 Office Visit Dayanara Dixon, Derik healy suppurative otitis media of right ear without spontaneous rupture of tympanic membrane, recurrence not specified (Primary Dx); Practice MARKETING DIRECTOR, DNP Acute serous otitis media of left ear, r ecurrence not specified [address] Rogelio Lloyd [place] [address] [place] [address] (Wo rk) Social History Tobacco Use Types [...] Sign Reading Time Taken Comments Blood Pressure 124/73 07/30/2015 8:16 AM ALLERGY SPECIALIST Pulse 81 07/30/2015 8:16 AM ALLERGY SPECIALIST Temperature 36.7 ??C (98.1 ??F) 07/30/2015 8:16 AM ALLERGY SPECIALIST Respiratory Rate - - Oxygen Saturation - - Inhaled Oxygen Concentration - - Weight 74.8 kg (165 lb) 07/30/2015 8:16 AM ALLERGY SPECIALIST Height - - Body Mass Index 30.42 05/10/2014 1:41 PM CDT documented in this encounter Patient Instructions Patient InstructionsDayanara Grubbs APRN, DNP - 07/30/2015 8:34 AM ALLERGY SPECIALIST - Take the antibiotic twice daily with food for 10 days - Use Flonase, 1 spray each nostril, daily - If still experiencing decreased hearing, fullness, or ear pain after completing antibiotic, returnto clinic RGY SPECIALIST documented in this encounter Progress Notes Dayanara Grubbs APRN, DNP - 07/30/2015 8:18 AM CST HISTORICAL: Chief Complaint Patient presents with ??? Ear Pain one week Concerns: URI Symptoms for 1 week(s) Are you having any of the following symptoms: Congestion? YES had a virus 1-2 weeks ago, those symptoms improving Dental pain? no Facial pain? no Headache? no Colored nasal discharge? no Ear pain - left? YES Ear pain - right? YES - worse on right than left Sore throat? YES drainage Fever? no Dizziness? no Cough? no Chest pain? no Short of breath? no Wheezing? no History Smoking status ??? Former Smoker Smokeless tobacco ??? Never Used Comment: only smoked occ Juliette Gaming is a 25 y.o. old female being evaluated today for bilateral ear pain, right > left. She had a viral URI 1-2 weeks ago with congestion, sore throat - these symptoms have mostly resolved, but ear pain has worsened. 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 Also notes some muffled hearing, fullness, and popping/crackling in ears.Denies drainage. Denies fever. Problem list, allergies, medication list reviewed and updated. OBSERVED: BP 124/73 mmHg Pulse 81 Temp(Src) 98.1 ??F (36.7 ??C) Wt 165 lb (74.844 kg) LMP (LMP Unknown) GENERAL: appears alert, oriented x4. No acute distress. Well-groomed and making appropriate eye contact. HEENT: Head is atraumatic. Eyes: PERRLA. Sclera white, conjunctiva pink. No drainage, crusting, or excessive tearing. Ears: L TM pearly brewer with visible bony landmarks, serous effusion noted. R TM pink, bulging, distorted light reflex - slight ecchymosis noted between 6:00 and 9:00 on TM. Nose: turbinates pink, no swelling or rhinorrhea. Facial and maxillary sinuses non-tender to palpation. Throat: Oropharynx pink, moist without tonsillar exudate or lesions. Tonsils +2 - +3. Good dentition. No submandibular, tonsillar, or cervical lymphadenopathy. CARDIOVASCULAR: regular rate and rhythm, normal S1 and S2 without murmur or click. No peripheral edema. Peripheral pulses +3 bilaterally. RESPIRATORY: Symmetric chest excursion, breathing non-labored. Clear to auscultation bilaterally, non-diminished, no wheezes or rales. ASSESSMENT/PLAN: ICD-10-CM 1. Acute suppurative otitis media of right ear without spontaneous rupture of tympanic membrane, recurrence not specified H66.001 amoxicillin (AKA AMOXIL) 500 MG capsule 2. Acute serous otitis media of left ear, recurrence not specified H65.02 fluticasone (AKA FLONASE) 50 MCG/ACT nasal solution - Amoxicillin for R TM. Bruising presumed from Q-tips - instructed her to stop using. - Flonase for congestion, serous effusion - Comfort measures at home - RTC if no improvement or if symptoms worsen See patient instructions for addnl details. Dayanara Grubbs APRN, DNP, 07/30/2015, 11:20 AM RGY SPECIALIST documented in this encounter Plan of Treatment Not on filedocumented as of this encounter Visit Diagnoses Diagnosis Acute suppurative otitis media of right ear without spontaneous rupture of tympanic membrane, recurrence not specified - [facility] Acute serous otitis media of left ear, r ecurrence not specified documented in this encounter
--- OUTSIDE RECORDS SUMMARY | 2022-03-10 15:58 | XMS_ITS | Encounter Summary ---
:1990 [facility] Address [address], [place] [address] Care Team Providers Name Role Phone Unavailable Primary Care Provider Unavailable Reason for Visit Reason Comments Refill Encounter Details Date Type Department Care Team Description 10/06/2014 Refill [facility] [address], Refill [facility] FLIGHT RADIO OPERATOR, PRODUCTION BOW MAKER [address] [place] [address] [place] [address] [phone] (Wo rk) Social History Tobacco Use Types [...] encounter Nursing Notes Chrissie Paniagua LPN - 10/08/2014 1:02 PM CDT Zantac refilled per protocol. Chrissie Paniagua LPN 10/08/2014 1:02 PM documented in this encounter Plan of Treatment Not on filedocumented as of this encounter Visit Diagnoses Not on filedocumented in this encounter
--- OUTSIDE RECORDS SUMMARY | 2022-03-10 15:58 | XMS_ITS | Encounter Summary ---
:1990 [facility] Address [address] [address] Care Team Providers Name Role Phone Unavailable Primary Care Provider Unavailable Reason for Visit Reason Comments Refill Encounter Details Date Type Department Care Team Description 05/27/2015 Refill [facility] [address] Juan Ramon Cole MD Refill [facility] [address] [place] [address] [place] [address] [phone] Social History Tobacco Use Types Packs/Day Years [...] Notes Interface, Out Surescripts Prov Query - 05/27/2015 1:08 AM CDT hydroxychloroquine (AKA PLAQUENIL) 200 MG tablet [Pharmacy Med Name: HYDROXYCHLOROQUINE 200 MG TAB] - WARNING: Ensure the patient had an Eye Exam in the last 12 months. - REFILL: 9 months (if warnings resolved) - PROTOCOL: Hydroxychloroquine - RATIONALE: This refill should last until the patient is due for an office visit. - LAST QUALIFYING VISIT IN RHEUMATOLOGY: 01/31/2015 - NEXT SCHEDULED VISIT IN RHEUMATOLOGY: 08/06/2015 - LAST REFILLED ON: 02/18/2015, QTY: 180, Refills: 0, Sig: take 1 tab by mouth two times a day. (unchanged) Powered by [employer]ome [id number], Reference: [id number], 05/27/2015 1:08:20 AM CDT, Pool: Kelsey Sandoval [facility] Team ([id number]) documented in this encounter Plan of Treatment Not on filedocumented as of this encounter Visit Diagnoses Not on filedocumented in this encounter
--- OUTSIDE RECORDS SUMMARY | 2022-03-10 15:58 | XMS_ITS | Encounter Summary ---
:1990 Author [facility] Address [address] [address] Care Team Providers Name Role Phone Unavailable Primary Care Provider Unavailable Reason for Visit Reason Comments Refill Encounter Details Date Type Department Care Team Description 09/30/2015 Refill [facility] [address] Lori Bedolla MD Ref[facility] [address] [place] [address] [place] [address] [phone] Social History Tobacco Use Types Packs/Day Years [...] documented as of this encounter Nursing Notes Yuliana Perez MD - 09/30/2015 11:25 AM CST Will send to her PCP. Yuliana Perez MD SION CONTROLLER Noelle Bryant RN - 09/30/2015 11:00 AM CST Unable to fill per standing orders, pt has not been seen at GI clinic since 2013 by Lorrie Ferrari NP Last visit ASSESSMENT AND PLAN: 23-year-old female with abdominal [...] We will contact her with lab results. -to GI MD buttonhole marker to review and advise. Noelle Bryant RN SION CONTROLLER documented in this encounter Plan of Treatment Not on filedocumented as of this encounter Visit Diagnoses Not on filedocumented in this encounter
--- OUTSIDE RECORDS SUMMARY | 2022-03-10 15:58 | XMS_ITS | Encounter Summary ---
:1990 Author Organization [facility] Address [address] [place] [address] Care Team Providers Name Role Phone Unavailable Primary Care Provider Unavailable Reason for Referral Consult/Transfer Care (Routine) - Closed Specialty Diagnoses / Procedures Referred By Contact Refer red To Contact Optometry Orlando Mckinley M D Aw [facility] [address] [place] [address] Phone: Fax: Referral ID Status Reason Start Date Expiration Date Visits Requ ested Visits Authorized [id number] Closed 01/31/2015 05/01/2016 1 1 Scheduling Instructions Your provider [facility] You may call [phone] to schedule your a ppointment. If you prefer, a fish farm manager will contact you within the next 3 business d ays to assist you in setting up this appointment. Reason for Visit Reason Comments Revisit Encounter Details Date Type Department Care Team Description 01/31/2015 Office Visit [facility] [address] Orlando Mckinley rthralgia (Primary Rheumatology Clinic MD Charles Dx) [address] [place] [address] Social History Tobacco Use Types Packs/Day Years [...] Sign Reading Time Taken Comments Blood Pressure 108/71 01/31/2015 8:18 AM CDT Pulse 78 01/31/2015 8:18 AM CDT Temperature - - Respiratory Rate 16 01/31/2015 8:18 AM CDT Oxygen Saturation - - Inhaled Oxygen Concentration - - Weight 70 kg (154 lb 6.4 oz) 01/31/2015 8:18 AM CDT Height - - Body Mass Index 28.47 05/10/2014 1:41 PM CDT documented in this encounter Patient Instructions Patient InstructionsOrlando Mckinley MD - 01/31/2015 8:30 AM CDT Blood tests today Stay on HCQplaquenil Tylenol if needed Continue good exercise Make EYE appt for plaquenil check Return 6 months documented in this encounter Progress Notes Orlando Mckinley MD - 01/31/2015 8:43 AM CDT Patient comes today for follow-up. She developed some polyarthralgia but never objective synovitis elevated sedimentation rate CRP negative serologies and response to steroid. We put her on Plaquenil the year ago and she does quite well. She is tapered herself off of prednisone. Less than 10 minutes of morning stiffness. She had some gastrointestinal complaints and lower gastrointestinal endoscopy was negative biopsies negative she has an upper scheduled but has not yet done that. Current Outpatient Prescriptions Medication Sig ??? hydroxychloroquine (AKA PLAQUENIL) 200 MG tablet Take 1 Tab by mouth two times a day. ??? Psyllium-Calcium (FIBER PLUS CALCIUM OR) ??? ranitidine (AKA ZANTAC) 150 MG tablet TAKE EVERY MORNING. MAY TAKE AN ADDITIONAL DOSE AT BEDTIMEIF NEEDED She doing some regular exercise since finds this helpful. Elbows wrists MCPs PIPs knees ankles without synovitis tender points negative no rashes no psoriasiform lesions. Polyarthralgia with elevated acute phase reactants doing better. We will update labs today continue Plaquenil Tylenol as needed. Return six months. documented in this encounter Plan of Treatment Scheduled Referrals Name Type Priority Associated Diagnoses Order S chedule OPTHALMOLOGY Referral Routine Ordered: 2014 documented as of this encounter Results CCP-AB (01/31/2015 8:38 AM [...] 02/04/2015 2:05 PM C DT Performed at [facility], [address] [place] [address] ??[id number] Orlando Mckinley MD LAB_1 Performing Organization Address City/[facility] [[email or web address]] Code Phon e Number [facility] [phone] RHEUMATOID FACTOR, QUANT (01/31/2015 8:38 AM CDT) athologist Signature Quant. Rheum. <9 0 - 11 [facility] Factor IU/ml LAB[facility] Specimen Anatomical Collection Method Collection Time Receive d Time (Source) Location / / Volume Laterality 01/31/2015 8:38 AM 5 8:43 CDT AM CDT Narrative [facility] - 01/31/2015 1:19 PM C DT Performed at [facility], [address] [place] [address] ??[id number] Orlando Mckinley MD LAB_1 Performing Organization Address City/[facility]/ZIP Code Phon e Number [facility] [phone] TSH, SENSITIVE with FT4, FT3 (if needed) (01/31/2015 8:38 AM CDT) athologist [facility] TSH, with 2.293 0.300 - [facility] Reflex 5.000 LABORATORIES uIU/ml Specimen Anatomical Collection Method Collection Time Receive d Time (Source) Location / / Volume Laterality 01/31/2015 8:38 AM 5 8:43 CDT AM CDT Narrative [facility] - 01/31/2015 1:31 PM C DT Performed at [facility], [address] [place] [address] ??[id number] Orlando Mckinley MD LAB_1 Performing Organization Address City/[facility] Phon e Number [facility] [phone] C-REACTIVE PROTEIN (01/31/2015 8:38 AM CDT) [facility] C-Reactive 0.8 0.0 - 0.9 [facility] Protein mg/dl LAB[facility]ATORIES Comment: Note: results are expressed in mg/dL. Specimen Anatomical Collection Method Collection Time Receive d Time (Source) Location / / Volume Laterality 01/31/2015 8:38 AM 5 8:43 CDT AM CDT Narrative [facility] - 01/31/2015 1:19 PM C DT Performed at [facility], [address] [place] [address] ??[id number] Orlando Mckinley MD LAB_1 Performing Organization Address [facility] Phon e Number [facility] [phone] (ABNORMAL) ESR (01/31/2015 8:38 AM CDT) athologist [facility] ESR 33 (H) 0 - 20 [facility] mm/hr Specimen Anatomical Collection Method Collection Time Receive d Time (Source) Location / / Volume Laterality 01/31/2015 8:38 AM 5 8:43 CDT AM CDT Narrative [facility] - 01/31/2015 2:59 PM C DT Performed at [facility], [address] [place] [address] ??[phone] Orlando Mckinley MD LAB_1 Performing Organization Address [facility] Phon e Number [facility] [phone] documented in this encounter Visit Diagnoses Diagnosis Arthralgia - Primary Pain in joint, site unspecified Arthralgia Pain in joint, site unspecified documented in this encounter
--- OUTSIDE RECORDS SUMMARY | 2022-03-10 15:58 | XMS_ITS | Encounter Summary ---
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 documented in this encounter Results TSH, SENSITIVE (WITH REFLEX)[0191] - Clinics ONLY (02/23/2014 1:40 PM CDT) athologist Signature TSH, with 2.366 0.300 - [facility] Reflex 5.000 LABORATORIES uIU/ml Specimen Anatomical Collection Method Collection Time Receive d Time (Source) Location / / Volume Laterality 02/23/2014 1:40 PM 4 1:59 CDT PM CDT Narrative [facility] - 02/23/2014 4:34 PM C DT Performed at [facility], [address] [place] [address] ??[id number] Marysol Vitale APRN, VB DEVELOPER LAB_1 Performing Organization Address City/State/ZIP Code Phon e Number [facility] [phone] documented in this encounter Visit Diagnoses Diagnosis Screening for thyroid disorder documented in this encounter
--- OUTSIDE RECORDS SUMMARY | 2022-03-10 15:58 | XMS_ITS | Encounter Summary ---
:1990 Author Organization [facility] Address [address], [place] [address] Care Team Providers Name Role Phone Unavailable Primary Care Provider Unavailable Reason for Referral Consult/Transfer Care (Routine) - Closed Specialty Diagnoses / Procedures Referred By Contact Refer red To Contact Orlando Mckinley M D [place] Referral ID Status Reason Start Date Expiration Date Visits Requ ested Visits Authorized [id number] Closed 03/05/2014 06/04/2015 1 1 Scheduling Instructions Your provider has recommended an appoint ment with [facility]. You may call [phone] to schedule yo ur appointment. If you prefer, a receptionist scheduler will contact you within the next 3 in days to assist you in setting up this appointment. Reason for Visit Reason Comments ROUTINE, FOLLOW-UP Encounter Details Date Type Department Care Team Description 03/05/2014 Office Visit Specialty Center Orlando Mckinley ferentiated 401 Rheumatology [facility] [place] (Primary Dx) [address] [place] [address] Social History Tobacco Use Types [...] Sign Reading Time Taken Comments Blood Pressure 100/58 03/05/2014 9:21 AM CDT Pulse 86 03/05/2014 9:21 AM CDT Temperature - - Respiratory Rate - - Oxygen Saturation - - Inhaled Oxygen Concentration - - Weight 68.7 kg (151 lb 6.4 oz) 03/05/2014 9:21 AM CDT Height - - Body Mass Index 27.92 02/23/2014 1:14 PM CDT documented in this encounter Patient Instructions Patient InstructionsOrlando Mckinley MD - 03/05/2014 9:39 AM CDT Prednisone 2 tabs every am Call me in 1 week with progress report Set up GI consultation Return visit 2 months documented in this encounter Progress Notes Orlando Mckinley MD - 03/05/2014 9:49 AM CDT Patient comes today for follow-up. We saw her for evaluation of polyarthralgias fatigability elevated sedimentation rate. Her complex was suggestive of fibromyalgia but she did not have tender points. On repeating her sedimentation rate and CRP they are both further elevated from previous values no sed imentation rate over 40. Her serologies other than a nonspecific MELISSA were entirely unremarkable including IRVIN DNA rheumatoid factors. Current Outpatient Prescriptions Medication Sig ??? Norgestimate-Eth Estradiol (SPRINTEC 28) 0.25-35 MG-MCG tablet Take 1 Tab by mouth daily. ??? predniSONE (AKA DELTASONE) 5 MG tablet Take 2 Tabs by mouth daily. ??? 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 She complains of some gastrointestinal symptoms little more suggestive of irritable bowel but one would wonder whether she could have some occult inflammatory bowel disease. Last for gastrointestinal evaluation. I put her on an empiric trial forone week of prednisone at 10 mg and she will call me in one week with a response. We could consider putting her on Plaquenil in the meantime if she has a positive response and I will see her back in two months. Discussed and answered questions. Total time 20 minutes all of which was spent counseling regarding care documented in this encounter Plan of Treatment Scheduled Referrals Name Type Priority Associated Diagnoses [facility] Referral Routine Ordered: CONSULT-ADULTS documented as of this encounter Visit Diagnoses Diagnosis Undifferentiated connective tissue disea se ([facility]) - Primary Unspecified diffuse connective tissue di sease documented in this encounter
--- OUTSIDE RECORDS SUMMARY | 2022-03-10 15:58 | XMS_ITS | Encounter Summary ---
:1990 Author Organization [facility] Address [address], [place] [address] Care Team Providers Name Role Phone Unavailable Primary Care Provider Unavailable Encounter Details Date Type Department Care Team Description 12/14/2013 Orders Only [facility] Hypercholesterolemia; [address] Abnormal TSH; Rogelio Lloyd [place] 5543 3 Screening, iron deficiency a nemia [phone] Social History Tobacco Use Types Packs/Day Years [...] documented as of this encounter Progress Notes Elaine Shultz MD - 12/15/2013 8:11 AM CDT Quick Note: Normal lab,recheck TSH AT 3 MONTH. ELAINE SHULTZ MD documented in this encounter Plan of Treatment Not on filedocumented as of this encounter Procedures Procedure Name Priority Date/Time Associated Diagnosis Comme nts HEMOGLOBIN, BLOOD Routine 12/14/2013 12:35 Screening, iron def iciency Results for this PM CDT anemia procedure are i n the results section. T3, FREE Routine 12/14/2013 12:34 Abnormal TSH Results for this PM CDT procedure are i n the results section. FREE T4 Routine 12/14/2013 12:34 Abnormal TSH Results for this PM CDT procedure are i n the results section. ALT (SGPT) Routine 12/14/2013 12:34 Hypercholesterolemia Res ults for this PM CDT procedure are i n the results section. AST Routine 12/14/2013 12:34 Hypercholesterolemia Res ults for this PM CDT procedure are i n the results section. documented in this encounter Results HEMOGLOBIN, BLOOD (12/14/2013 12:35 PM CDT) athologist Signature Hemoglobin 12.9 12.0 - 16.0 [facility] g/dl Specimen Anatomical Collection Method Collection Time Receive d Time (Source) Location / / Volume Laterality 12/14/2013 12:35 12/14/2013 PM CDT 12:36 PM CDT Narrative [facility] - 12/14/2013 3:46 PM C DT Performed at [facility], [address] [place] [address] ??[phone] Marysol Vitale APRN, MATILDA LAB_1 Performing Organization Address [facility] Phon e Number [facility] [phone] FREE T4 (12/14/2013 12:34 PM CDT) athologist Signature T4, Free 1.0 0.8 - 2.2 [facility] ng/dl Specimen Anatomical Collection Method Collection Time Receive d Time (Source) Location / / Volume Laterality 12/14/2013 12:34 12/14/2013 PM CDT 12:36 PM CDT Narrative [facility] - 12/14/2013 5:10 PM C DT Performed at [facility], [address] [place] [address] ??[phone] Elaine Shultz MD LAB_1 Performing Organization Address [facility]/ZIP Code Phon e Number [facility] [phone] T3, FREE, SERUM (12/14/2013 12:34 PM CDT) athologist Signature T3,Free 4.5 2.8 - 5.2 [facility] pg/ml Specimen Anatomical Collection Method Collection Time Receive d Time (Source) Location / / Volume Laterality 12/14/2013 12:34 12/14/2013 PM CDT 12:36 PM CDT Narrative [facility] - 12/14/2013 5:10 PM C DT Performed at [facility], [address] [place] [address] ??[phone] Elaine Shultz MD LAB_1 Performing Organization Address City/State/ZIP Code Phon e Number [facility] [phone] ALT (SGPT) (12/14/2013 12:34 PM CDT) athologist Signature ALT (SGPT) 31 0 - 69 U/L [facility] Specimen Anatomical Collection Method Collection Time Receive d Time (Source) Location / / Volume Laterality 12/14/2013 12:34 12/14/2013 PM CDT 12:36 PM CDT Narrative [facility] - 12/14/2013 4:52 PM C DT Performed at [facility], [address] [place] [address] ??[phone] Elaine Shultz MD LAB_1 Performing Organization Address City/[facility]/ZIP Code Phon e Number [facility] [phone] AST (12/14/2013 12:34 PM CDT) athologist Signature AST (SGOT) 44 0 - 66 U/L [facility] Specimen Anatomical Collection Method Collection Time Receive d Time (Source) Location / / Volume Laterality 12/14/2013 12:34 12/14/2013 PM CDT 12:36 PM CDT Narrative [facility] - 12/14/2013 4:52 PM C DT Performed at [facility], [address] [place] [address] ??[phone] Elaine Shultz MD LAB_1 Performing Organization Address City/State/ZIP Code Phon e Number [facility] [phone] documented in this encounter Visit Diagnoses Diagnosis Hypercholesterolemia Pure hypercholesterolemia Abnormal TSH Other abnormal clinical finding Screening, iron deficiency anemia Screening for iron deficiency anemia documented in this encounter
--- OUTSIDE RECORDS SUMMARY | 2022-03-10 15:59 | XMS_ITS | Encounter Summary ---
:1990 Author Organization [facility] Address [address] [place] [address] Care Team Providers Name Role Phone Unavailable Primary Care Provider Unavailable Encounter Details Date Type Department Care Team Description 03/19/2010 Emergency Room External to [facility], DYSURIA S UPRAPUBIC Provider DISCOMFORT Social History Tobacco Use Types Packs/Day Years Used Date Smoking Tobacco: Never Alcohol Use Standard Drinks/Week Comments No 0 (1 standard drink = 0.6 oz pure alcoho l) Sex Assigned at Date Recorded Not on file documented as of this encounter Progress Notes Interface, In Chrtscr And Scan - 04/12/2010 9:36 AM CDT documented in this encounter Plan of Treatment Not on filedocumented as of this encounter Visit Diagnoses Not on filedocumented in this encounter
--- OUTSIDE RECORDS SUMMARY | 2022-03-10 15:59 | XMS_ITS | Encounter Summary ---
:1990 Author [facility] Address [address] [place] [address] Care Team Providers Name Role Phone Justina Santiago MD Primary Care Provider Unavailable Encounter Details Date Type Department Care Team Description 03/07/2009 Emergency Room External to [facility], Provider ITCHING Social History Tobacco Use Types Packs/Day Years Used Date Smoking Tobacco: Never Alcohol Use Standard Drinks/Week Comments Not Asked 0 (1 standard drink = 0.6 oz pure alcoho l) Sex Assigned at Date Recorded Not on file documented as of this encounter Progress Notes Interface, In Chrtscr And Scan - 03/18/2009 2:53 PM CDT documented in this encounter Plan of Treatment Not on filedocumented as of this encounter Visit Diagnoses Not on filedocumented in this encounter Care Teams Head Animal Trainer Relationship Specialty Start Date End Date Justina Santiago MD PCP - General 04/25/07 02/03/10 documented as of this encounter
--- OUTSIDE RECORDS SUMMARY | 2022-03-10 15:59 | XMS_ITS | Encounter Summary ---
:1990 Author Organization [facility] Address [address] [address] Care Team Providers Name Role Phone Jack, Justina Kowalski MD Primary Care Provider Unavailable Reason for Visit Reason Comments IMMUNIZATIONS HPV #2 Encounter Details Date Type Department Care Team Description 07/13/2007 Office Visit [facility] Vac cination-Viral Department Disease (Primary Dx) [address] [place], [place] [address] Social History Tobacco Use Types Packs/Day Years Used Date Smoking Tobacco: Never Alcohol Use Standard Drinks/Week Comments Not Asked 0 (1 standard drink = 0.6 oz pure alcoho l) Sex Assigned at Date Recorded Not on file documented as of this encounter Progress Notes Zo Swan - 07/13/2007 8:50 AM CST Juliette Gaming here for injection(s). ordered per SO. See orders. Contraindications and side effects discussed with mother and patient mother and patient verbalized understanding of risks, possible side effects, and benefits of the injection and gave permission to administer the stated immunization(s). No precautions or contraindications noted. Tolerated injection well. See immunization/injection report for administration documentation. Zo Swan LPN 07/13/2007 8:50 AM AL LATHE OPERATOR documented in this encounter Plan of Treatment Not on filedocumented as of this encounter Visit Diagnoses Diagnosis Need for prophylactic vaccination and in oculation against other viral diseases(V04.89) - Primary Need for prophylactic vaccination and in oculation against other viral diseases documented in this encounter Care Teams Director Design Relationship Specialty Start Date End Date Justina Santiago MD PCP - General 04/25/07 02/03/10 documented as of this encounter
--- OUTSIDE RECORDS SUMMARY | 2022-03-10 15:59 | XMS_ITS | Encounter Summary ---
:1990 [facility] Address [address] [place] [address] Care Team Providers Name Role Phone Unavailable Primary Care Provider Unavailable Reason for Visit Reason Comments Refill Encounter Details Date Type Department Care Team Description 02/22/2013 Refill [facility] Samm Braden MD Refill Obstetrics and Gynec ology [address] [address] [place] [address] [place], [place] [address] [phone] Social History Tobacco Use Types Packs/Day Years Used Date Smoking Tobacco: Never Smokeless Tobacco: Never Alcohol Use Standard Drinks/Week Comments No 0 (1 standard drink = 0.6 oz pure alcoho l) Sex Assigned at Date Recorded Not on file documented as of this encounter Nursing Notes Tracy Weiss RN - 02/22/2013 2:40 PM CDT Telephone Information: RHM was due 12/12. Patient is advised to schedule RHM. Tracy Weiss RN documented in this encounter Plan of Treatment Not on filedocumented as of this encounter Visit Diagnoses Not on filedocumented in this encounter
--- OUTSIDE RECORDS SUMMARY | 2022-03-10 15:59 | XMS_ITS | Encounter Summary ---
:1990 Author Organization [facility] Address [address], [place] [address] Care Team Providers Name Role Phone Unavailable Primary Care Provider Unavailable Reason for Visit Reason Onset Date Comments REFERRAL REQUEST 10/13/2013 Encounter Details Date Type Department Care Team Description 10/13/2013 Telephone [facility] Marysol Vitale, REFERRAL REQUEST Obstetrics and Gynec ology CUTTING SUPERVISOR, TOOL [place]ITH [address] [place], [place] [address] Social History Tobacco Use Types [...] documented as of this encounter Nursing Notes Brooke Linder RN - 10/13/2013 8:52 AM CDT Pt needs orders for fasting lab work faxed to [phone]. Orders on chart per Evie Vitale. Faxed to number given by pt. Pt informed and given fax number to have results sent here. Brooke Linder RN 8:58 AM Javan Hightower - 10/13/2013 8:20 AM CDT What referral/order is being requested: Needing document stating needs labs done. Why is the referral/order needed: will not draw blood at [facility] unless pt has written documentation. Is it okay to leave detailed message on your voicemail? yes [Backend Python Developer/Appt Center: If this call is after 3 p.m., communicate to patient: If we are not able to get back to you by the end of the day and your symptoms worsen please contact the Careline] [Backend Python Developer: Please inform patient that a referral does not guarantee insurance coverage. Patients should call the member services number on the back of their insurance ID card to understand whatcoverage for the services they are requesting.] documented in this encounter Plan of Treatment Not on filedocumented as of this encounter Results TSH, SENSITIVE (WITH REFLEX)[0191] - Clinics ONLY (02/23/2014 1:40 PM CDT) athologist Signature TSH, with 2.366 0.300 - [facility]000 [facility] uIU/ml Specimen Anatomical Collection Method Collection Time Receive d Time (Source) Location / / Volume Laterality 02/23/2014 1:40 PM 4 1:59 CDT PM CDT Narrative [facility] - 02/23/2014 4:34 PM C DT Performed at [facility], [address] [place] [address] ??[phone] Marysol Vitale CUTTING SUPERVISOR, TOOL SMITH LAB_1 Performing Organization Address City/State/ZIP Code Phon e Number [facility] [phone] HEMOGLOBIN, BLOOD (12/14/2013 12:35 PM CDT) athologist Signature Hemoglobin 12.9 12.0 - 16.0 [facility] g/dl Specimen Anatomical Collection Method Collection Time Receive d Time (Source) Location / / Volume Laterality 12/14/2013 12:35 12/14/2013 PM CDT 12:36 PM CDT Narrative [facility] - 12/14/2013 3:46 PM C DT Performed at [facility], [address] [place] [address] ??[phone] Marysol Vitale APRN, CNP LAB_1 Performing Organization Address City/State/ZIP Code Phon e Number [facility] [phone] documented in this encounter Visit Diagnoses Diagnosis Hypercholesterolemia - Primary Pure hypercholesterolemia Screening for thyroid disorder Screening for diabetes mellitus Screening, iron deficiency anemia Screening for iron deficiency anemia Hypercholesterolemia Pure hypercholesterolemia Abnormal TSH Other abnormal clinical finding Screening, iron deficiency anemia Screening for iron deficiency anemia Screening for thyroid disorder documented in this encounter
--- OUTSIDE RECORDS SUMMARY | 2022-03-10 15:59 | XMS_ITS | Encounter Summary ---
:1990 Author Organization [facility] Address [address] [place] [address] Care Team Providers Name Role Phone Jack, Justina Kowalski MD Primary Care Provider Unavailable Encounter Details Date Type Department Care Team Description 07/13/2007 Orders Only [facility] Routine or Child [address] [facility] [place] [address] Social History Tobacco Use Types Packs/Day Years Used Date Smoking Tobacco: Never Alcohol Use Standard Drinks/Week Comments Not Asked 0 (1 standard drink = 0.6 oz pure alcoho l) Sex Assigned at Date Recorded Not on file documented as of this encounter Plan of Treatment Not on filedocumented as of this encounter Procedures Procedure Name Priority Date/Time Associated Diagnosis Comme nts COMPLETE BLOOD Routine 07/13/2007 7:42 AM Routine or Re sults for this COUNT-NO DIFF BUS DRIVER SUPERVISOR Child Health Check procedur e are in the results section. LIPID PANEL, FAST > Routine 07/13/2007 7:42 AM Routine or Results for this 12 HOUR BUS DRIVER SUPERVISOR Child Health Check procedure are in the results section. documented in this encounter Results (ABNORMAL) HEMOGRAM/PLTS (07/13/2007 7:42 AM BUS DRIVER SUPERVISOR) P athologist Signature WBC 5.5 4.0 - 11.0 [facility] k/ul RBC 4.30 4.1 - 5.1 [facility] M/ul Hemoglobin 11.4 (L) 12.0 - [facility] 16.0 g/dl HCT 35.6 (L) 36.0 - [facility] 46.0 % MCV 82.7 78 - 98 fl [facility] MCH 26.5 25 - 35 pg [facility] MCHC 32.1 32 - 36 % [facility] RDW 14.3 11.5 - [facility] 14.5 % Platelets 310 150 - 450 [facility] k/ul Specimen Anatomical Collection Method Collection Time Receive d Time (Source) Location / / Volume Laterality 07/13/2007 7:42 AM 7 7:43 BUS DRIVER SUPERVISOR AM BUS DRIVER SUPERVISOR Justina Santiago MD LAB_1 Performing Organization Address City/[facility] Phon e Number [facility] [phone] [facility] [address] [address] CHOLESTEROL LIPID PANEL FAST >12HR (07/13/2007 7:42 AM BUS DRIVER SUPERVISOR) P athologist Signature Cholesterol 198 <200 mg/dl [facility] Triglyceride 93 <200 mg/dl [facility] HDL 55 >35 mg/dl [facility] LDL, Calc. 124 mg/dl [facility] Hours Fasting 12 hours [facility] Specimen Anatomical Collection Method Collection Time Receive d Time (Source) Location / / Volume Laterality 07/13/2007 7:42 AM 7 7:43 BUS DRIVER SUPERVISOR AM BUS DRIVER SUPERVISOR Justina Santiago MD LAB_1 Performing Organization Address City/[facility] Phon e Number [facility] [phone] [facility] [address] [address] documented in this encounter Visit Diagnoses Diagnosis Routine infant or child health check documented in this encounter Care Teams Roofer Helper Vinyl Coating Relationship Specialty Start Date End Date Justina Santiago MD PCP - General 04/25/07 02/03/10 documented as of this encounter
--- OUTSIDE RECORDS SUMMARY | 2022-03-10 15:59 | XMS_ITS | Encounter Summary ---
:1990 Author [facility] Address [address] [address] Care Team Providers Name Role Phone Unavailable Primary Care Provider Unavailable Reason for Visit Reason Comments ROUTINE HEALTH MAINTENANCE Encounter Details Date Type Department Care Team Description 12/16/2011 Office Visit [facility] Marysol Vitale general medical examination at a health care facility (Primary Dx); Obstetrics and L, CISCO, MATILDA Screening exa mination for venereal disease; Gynecology Contraceptive surveillance [address] [place], [place] [address] Social History Tobacco Use Types Packs/Day Years Used Date Smoking Tobacco: Never Smokeless Tobacco: Never Alcohol Use Standard Drinks/Week Comments No 0 (1 standard drink = 0.6 oz pure alcoho l) Sex Assigned at Date Recorded Not on file documented as of this encounter Last Filed Vital Signs Vital Sign Reading Time Taken Comments Blood Pressure 128/62 12/16/2011 1:35 PM CDT Pulse 89 12/16/2011 1:35 PM CDT Temperature - - Respiratory Rate - - Oxygen Saturation - - Inhaled Oxygen Concentration - - Weight 61.7 kg (136 lb) 12/16/2011 1:35 PM CDT Height 154.9 cm (5' 1) 12/16/2011 1:35 PM CDT Body Mass Index 25.7 12/16/2011 1:35 PM CDT documented in this encounter Progress Notes Marysol Vitale APRN, MATILDA - 12/16/2011 1:52 PM CDT SUBJECTIVE: Juliette Gaming is an 21 yr woman who presents for a preventative exam. Menses are: regular and predictable Current contraception: oral contraceptives: combination History of abnormal Pap smear: no Family history of uterine or ovarian cancer: no History of abnormal mammogram: not applicable Family history of breast cancer: no Sexual activity:monogamous in a stable relationship-new x 8 months Calcium intake: adequate thru diet Exercise:exercises vigorously 5-7 times a week.training for a 5 K. Domestic Violence Concerns:denies any concern Review Of Systems Ears/Nose/Throat: negative Respiratory: negative Cardiovascular: elevated lipids Gastrointestinal: negative Genitourinary: negative Eyes: negative Endo: negative Heme: negative Muscular Skeletal: c/o joint pains in both knees and wrists for several yrs- worse lately/no swellingsxs Neuro: negative Psych: negative Skin: negative OBJECTIVE: BP 128/62 Pulse 89 Ht 5' 1 (1.549 m) Wt 136 lb (61.689 kg) BMI 25.70 kg/m2 LMP 11/30/2011 General appearance: stated age, healthy, alert, in no distress Skin: Skin color, texture, turgor normal. No rashes or lesions. Neck: Neck supple. No adenopathy. Thyroid symmetric, normal size. Lungs: clear to auscultation, no wheezes or rales Heart: PMI normal. No lifts, heaves, or thrills. RRR. No murmurs, clicks or rubs Breasts: Inspection negative. No nipple discharge or bleeding. No masses or tenderness Abdomen: Abdomen soft, non-tender without masses or organomegaly Pelvic: Pap test not done. Negative findings: external genitalia normal, Bartholin's glands, urethra, Woodway's glands negative, vaginal mucosa normal, cervix clear, normal sized uterus, adnexae negative. 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 Marysol Vitale CNP documented in this encounter Plan of Treatment Not on filedocumented as of this encounter Procedures Procedure Name Priority Date/Time Associated Diagnosis Comme nts CHLAMYDIA & GC (14 Routine 12/16/2011 3:33 PM Screening Res ults for this YEARS AND OLDER) CDT examination for procedur e are in venereal disease the results section. documented in this encounter Results CHLAMYDIA & GC (12/16/2011 3:33 PM CDT) P athologist Signature Chlamydia Negative [facility] Comment: Test Performed by Inside Sales Administrator Mediated Amplification GC (N. gonorrhoeae) Negative [facility] Comment: Test Performed by Inside Sales Administrator Mediated Amplification Source Cervix [facility] Specimen Anatomical Collection Method Collection Time Receive d Time (Source) Location / / Volume Laterality 12/16/2011 3:33 PM 2 3:34 CDT PM CDT Marysol Vitale APRN, CNP LAB_1 Performing Organization Address City/State/ZIP Code Phon e Number [facility] [phone] [address] documented in this encounter Visit Diagnoses Diagnosis Routine general medical examination at [facility] facility - Primary Routine general medical examination at a [facility] care facility Screening examination for venereal disea se Contraceptive surveillance Contraceptive surveillance, unspecified documented in this encounter
--- OUTSIDE RECORDS SUMMARY | 2022-03-10 15:59 | XMS_ITS | Encounter Summary ---
:1990 [facility] Address [address] [place] [address] Care Team Providers Name Role Phone Victor Manuel Clinician Primary Care Provider Unavailable Encounter Details Date Type Department Care Team Description 12/16/2011 Correspondence None Inactive, Provider MED EQU IPMENT PROOF OF DELIVERY Social History Tobacco Use Types Packs/Day Years Used Date Smoking Tobacco: Never Smokeless Tobacco: Never Alcohol Use Standard Drinks/Week Comments No 0 (1 standard drink = 0.6 oz pure alcoho l) Sex Assigned at Date Recorded Not on file documented as of this encounter Progress Notes Inactive, Provider - 12/16/2011 12:00 AM CDT documented in this encounter Plan of Treatment Not on filedocumented as of this encounter Visit Diagnoses Not on filedocumented in this encounter Care Teams Solution Mixer Relationship Specialty Start Date End Date Nemesio Rush PCP - General 11/22/[address] [place] [address] documented as of this encounter
--- OUTSIDE RECORDS SUMMARY | 2022-03-10 15:59 | XMS_ITS | Encounter Summary ---
:1990 Author [facility] Address [address] [place] [address] Care Team Providers Name Role Phone JackJustina grant MD Primary Care Provider Unavailable Reason for Visit Reason Comments SHOT,FLU Encounter Details Date Type Department Care Team Description 05/23/2008 Office Visit [facility] Need for Prophylactic [address] [place] [address] Inoculation Against [phone] Influenza (Prim jean Dx) Social History Tobacco Use Types Packs/Day Years Used Date Smoking Tobacco: Never Alcohol Use Standard Drinks/Week Comments Not Asked 0 (1 standard drink = 0.6 oz pure alcoho l) Sex Assigned at Date Recorded Not on file documented as of this encounter Nursing Notes 05/23/2008 8:20 AM CDT >> AYLEEN RAMÍREZ CMA WedMay 23, 2008 9:47 AM LABS DONE AYLEEN RAMÍREZ CMA 05/23/2008, 9:47 AM documented in this encounter Plan of Treatment Not on filedocumented as of this encounter Visit Diagnoses Diagnosis Need for prophylactic vaccination and in oculation against influenza - Primary documented in this encounter Care Teams Manager Hotel Relationship Specialty Start Date End Date Justina Santiago MD PCP - General 04/25/07 02/03/10 documented as of this encounter
--- OUTSIDE RECORDS SUMMARY | 2022-03-10 15:59 | XMS_ITS | Encounter Summary ---
:1990 Author Organization [employer] Address [address], [place] [address] Care Team Providers Name Role Phone Unavailable Primary Care Provider Unavailable Reason for Visit Reason Comments DEPRESSION follow up Encounter Details Date Type Department Care Team Description 02/25/2010 Office Visit Elaine López Maj or Depressive Practice MD Disorder, Single [address] Episode, Moderate [place], [place] [address] [address] (Primary Dx) [phone] [place] [address] (Wo rk) Social History Tobacco Use Types Packs/Day Years Used Date Smoking Tobacco: Never Alcohol Use Standard Drinks/Week Comments Not Asked 0 (1 standard drink = 0.6 oz pure alcoho l) Sex Assigned at Date Recorded Not on file documented as of this encounter Last Filed Vital Signs Vital Sign Reading Time Taken Comments Blood Pressure 100/60 02/25/2010 2:07 PM CDT Pulse 76 02/25/2010 2:07 PM CDT Temperature - - Respiratory Rate - - Oxygen Saturation - - Inhaled Oxygen Concentration - - Weight 53.5 kg (118 lb) 02/25/2010 2:07 PM CDT Height - - Body Mass Index - - documented in this encounter Progress Notes Elaine Shultz - 02/25/2010 2:24 PM CDT This office note has been dictated. Elaine Shultz MD Elaine Shultz - 02/25/2010 12:00 AM CDT This is an 19-year-old female present in the clinic today to follow up with her major depression. HISTORY OF PRESENT ILLNESS: The patient has been seen in the clinic back on February 06; at that time we started treatment with Zoloft. In the beginning, the patient has been a little bit drowsy, but after a while her side effect completely resolved. Because of no significant improvement with 25 mg, the patient doubled her dose approximately one week ago and currently she has been taking 50 mg. She still continued to follow up with a psychologist on a regular basis, which has been helpful. Overall she feels approximately 20% of the improvement. Her symptom became more mild. She still continued to get intermittent suicidal thoughts, but no plan. It seems right now she can manage her symptom better. She tries to keep her busy. PHYSICAL EXAM: Vital signs: Normal. Not in acute distress. Well groomed, answer to question appropriately. Denies any hallucination, delusion. Denies any suicidal thought or ideation. Judgment and insight intact. PHQ-9 score today is 8. ASSESSMENT AND PLAN: Fcqsnakg-beul-vuj female to follow up with major depression, moderate. 1. Will continue 50 mg of Zoloft and in 7 to 10 days may increase to 75 if no improvement. 2. Will continue to follow up with psychologist on a regular basis. 3. Should be seen immediately if suicidal thought or ideation will develop, otherwise follow up with us between two and three weeks. P / A tdy cc: documented in this encounter Plan of Treatment Not on filedocumented as of this encounter Visit Diagnoses Diagnosis Major depressive disorder, single episod e, moderate ([facility]) - Primary Major depressive disorder, single episod e, moderate documented in this encounter
--- OUTSIDE RECORDS SUMMARY | 2022-03-10 15:59 | XMS_ITS | Encounter Summary ---
:1990 Author Organization [facility] Address [address] [place] [address] Care Team Providers Name Role Phone Unavailable Primary Care Provider Unavailable Encounter Details Date Type Department Care Team Description 10/31/2013 Orders Only Rogelio Lloyd [facility] Marysol Vitale [facility] L, TRANSIT WORKER, DIAGNOSTIC ASSISTANT examination, [address] unspecified (Primary [place] [address] 3 Dx) [phone] Social History Tobacco Use Types Packs/Day Years [...] Name Priority Date/Time Associated Diagnosis Comme nts LIPID PANEL AND Routine 10/13/2013 9:24 AM Laboratory Result s for this DIRECT LDL(IF CDT examination, procedure are in NEEDED) unspecified the results section. LDL CHOLESTEROL, Routine 10/13/2013 9:24 AM Laboratory Resul ts for this DIRECT MEASURED CDT examination, procedure ar e in unspecified the results section. TSH, SENSITIVE Routine 10/13/2013 9:24 AM Laboratory Results for this CDT examination, procedure are i n unspecified the results section. HEMOGLOBIN, BLOOD Routine 10/13/2013 9:24 AM Laboratory Resu lts for this CDT examination, procedure are i n unspecified the results section. GLUCOSE - FASTING > Routine 10/13/2013 9:24 AM Laboratory Re sults for this 8 HRS FASTING CDT examination, procedure are in unspecified the results section. documented in this encounter Results (ABNORMAL) TSH, SENSITIVE (10/13/2013 9:24 AM CDT) athologist Signature TSH, Sensitive 6.10 (A) 0.34 - EXTERNAL 5.60 RESULTS MIU/ML Comment: PERFORMED AT [facility] [place], [place] Specimen (Source) Anatomical Collection Method Collection Time Re ceived Time Location / / Volume Laterality 10/13/2013 9:24 AM CDT Marysol Vitale APRN, MATILDA LAB_1 Performing Organization Address [facility]/ZIP Code Phon e Number EXTERNAL RESULTS (ABNORMAL) LIPID PANEL AND DIRECT LDL(IF NEEDED) (10/13/2013 9:24 AM CDT) athologist Signature Cholesterol 342 (A) 0.0 - 200.0 EXTERNAL MG/DL RESULTS Comment: PERFORMED AT [facility] [place], [place] Triglyceride 193 30.0 - 200.0 MG/DL EXTERNAL RESULTS Comment: PERFORMED AT [place], [place] HDL 68 (A) 40 - 60 MG/DL EXTERNAL RESULTS Comment: PERFORMED AT [place], [place] LDL, Calc. 235 (A) 0 - 99 MG/DL EXTERNAL RESULTS Comment: PERFORMED AT [place], [place] Specimen (Source) Anatomical Collection Method Collection Time Re ceived Time Location / / Volume Laterality 10/13/2013 9:24 AM CDT Marysol Vitale APRN, CNP LAB_1 Performing Organization Address City/[facility]/ZIP Code Phon e Number EXTERNAL RESULTS (ABNORMAL) LDL CHOLESTEROL, DIRECT MEASURED (10/13/2013 9:24 AM CDT) athologist Signature LDL, Direct 263 (A) 0 - 99 EXTERNAL MG/DL RESULTS Comment: PERFORMED AT [facility] [place], [place] Specimen (Source) Anatomical Collection Method Collection Time Re ceived Time Location / / Volume Laterality 10/13/2013 9:24 AM CDT Marysol Vitale APRN, CNP LAB_1 Performing Organization Address [facility] Phon e Number EXTERNAL RESULTS HEMOGLOBIN, BLOOD (10/13/2013 9:24 AM CDT) athologist Signature Hemoglobin 12.6 12.0 - 16.0 EXTERNAL GM/DL RESULTS Comment: PERFORMED AT [facility] [place], [place] Specimen (Source) Anatomical Collection Method Collection Time Re ceived Time Location / / Volume Laterality 10/13/2013 9:24 AM CDT Marysol Vitale APRN, CNP LAB_1 Performing Organization Address [facility] Phon e Number EXTERNAL RESULTS GLUCOSE - FASTING > 8 HRS FASTING (V77.1) (10/13/2013 9:24 AM CDT) athologist Signature Glucose 90 70 - 99 EXTERNAL MG/DL RESULTS Comment: PERFORMED AT [facility] [place], [place] Specimen (Source) Anatomical Collection Method Collection Time Re ceived Time Location / / Volume Laterality 10/13/2013 9:24 AM CDT Marysol Vitale APRN, CNP LAB_1 Performing Organization Address [facility] Phon e Number EXTERNAL RESULTS documented in this encounter Visit Diagnoses Diagnosis Laboratory examination, unspecified - Pr imary documented in this encounter
--- OUTSIDE RECORDS SUMMARY | 2022-03-10 15:59 | XMS_ITS | Encounter Summary ---
:1990 Author Organization [facility] Address [address], [place] [address] Care Team Providers Name Role Phone Unavailable Primary Care Provider Unavailable Reason for Visit Reason Comments ROUTINE HEALTH MAINTENANCE Encounter Details Date Type Department Care Team Description 05/26/2013 Office Visit [facility] Nlie Meraz general medical examination at health care facility (Primary Dx); Obstetrics and L, DROP WIRE BUILDER, STEM LEAD FORMER Screening for malignant neoplasm of the cervix; Gynecology Screening examination for ve nereal disease; [address] Elevated lipids [place], [place] [address] Social History Tobacco Use Types [...] Sign Reading Time Taken Comments Blood Pressure 110/60 05/26/2013 10:49 AM CDT Pulse - - Temperature - - Respiratory Rate - - Oxygen Saturation - - Inhaled Oxygen Concentration - - Weight 60.8 kg (134 lb) 05/26/2013 10:49 AM CDT Height 156.8 cm (5' 1.75) 05/26/2013 10:49 AM CDT Body Mass Index 24.71 05/26/2013 10:49 AM CDT documented in this encounter Progress Notes Nile Vitale, DROP WIRE BUILDER, STEM LEAD FORMER - 05/26/2013 10:58 AM CDT SUBJECTIVE: Juliette Gaming is an 22 yr woman who presents for a preventative exam. Menses are: regular and predictable Current contraception: oral contraceptives: combination History of abnormal Pap smear: not applicable Family history of uterine or ovarian cancer: no History of abnormal mammogram: not applicable Family history of breast cancer: no Sexual activity:monogamous in a stable relationship Calcium intake: adequate Exercise:does some activities which elevate heart rate several times a week. Domestic Violence Concerns:denies any concern Review Of Systems Ears/Nose/Throat: negative Respiratory: negative Cardiovascular: negative Gastrointestinal: negative Genitourinary: negative Eyes: negative Endo: negative Heme: negative Muscular Skeletal: cont'd ocass jt pain Neuro: negative Psych: negative Skin: negative OBJECTIVE: BP 110/60 Ht 5' 1.75 (1.568 m) Wt 134 lb (60.782 kg) BMI 24.72 kg/m2 LMP 05/21/2013 General appearance: stated age, healthy, alert, in no distress Skin: Skin color, texture, turgor normal. No rashes or lesions. Neck: negative Lungs: clear to auscultation, no wheezes or rales Heart: PMI normal. No lifts, heaves, or thrills. RRR. No murmurs, clicks or rubs Breasts: Inspection negative. No nipple discharge or bleeding. No masses or tenderness Abdomen: Abdomen soft, non-tender without masses or organomegaly Pelvic: Pap test done. Negative findings: external genitalia normal, Bartholin's glands, urethra, Bent's glands negative, vaginal mucosa normal, cervix clear, normal sized uterus, adnexae negative. Rectal Exam:rectal not indicated by age criteria and lack of symptoms ASSESSMENT: Satisfactory annual management liaison exam Pt had seen FP prov last yr for jt pain -+ MELISSA-was ref to rheumatology and hasn't been seen yet OCPs working well for BC-wishes to renew Elevated lipids 2011-see lab result PLAN: Pap smear Genprobe Pt will sched appt w a Regulation Supervisor as rec by Dr Shultz-gave #s Re:elevated lipids-quite high in 2011.Needs to RTC for fasting labs:lipids,tsh,fbs and rech hgb.If lipids cont to be very elevated will need to D/C ocps or would rec she see her PMD for mgt and control-therefore rx for OCPs renewed just x 3 months for now,giving her time to get back for labs and see PMD if elevated .[She states she goes to college in [place] and is diff to sched appt -will try for Dec when on break] UTD on vaccines Flu vaccine today RTC in one year for Preventative exam and call if concerns PE: Reviewed health maintenance including diet, regular exercise and periodic exams. Nile Vitale CNP Rajwinder Anne CMA - 05/26/2013 10:48 AM CDT Pre-visit planning Does patient want a senior courtroom clerk present during exam? No PARA 0000 Health Maintenance history: PAP SMEAR NEVER Health Maintenance history: GC CHLAMYDIA AGE 26 AND UNDER 12/2011 neg Health Maintenance history: LIPID SCREENING 10/2011 371/68 Trig 168 ldl 269 History of Abnormal Pap? No Immunizations up to date? Yes Tdap 10/08/11 Signature for DAFNE ESTEVEZ [] Today's visit: Chief Complaint Patient presents with ??? ROUTINE HEALTH MAINTENANCE Do you need any refills? Yes: ocp's PARA: Patient's last menstrual period was 05/21/2013. BP Readings from Last 1 Encounters: 12/16/11 127/73 Rajwinder Anne CMA documented in this encounter Plan of Treatment Not on filedocumented as of this encounter Procedures Procedure Name Priority Date/Time Associated Diagnosis Comme nts CHLAMYDIA & GC (14 Routine 05/26/2013 4:30 PM Screening Res ults for this YEARS AND OLDER) CDT examination for procedur e are in venereal disease the results section. PAP TEST, ROUTINE Routine 05/26/2013 4:30 PM Screening for Res ults for this CDT malignant neoplasm procedure are in of the cervix the results section. documented in this encounter Results CHLAMYDIA & GC (05/26/2013 4:30 PM CDT) P athologist Signature Source Cervix [facility] Chlamydia Negative NEG [facility] Comment: Test Performed by Recreational Vehicle Repairer Mediated Amplification GC (N. gonorrhoeae) Negative [facility] Comment: Test Performed by Recreational Vehicle Repairer Mediated Amplification Specimen Anatomical Collection Method Collection Time Receive d Time (Source) Location / / Volume Laterality 05/26/2013 4:30 PM 3 4:35 CDT PM CDT Narrative [facility] - 05/29/2013 2:20 PM C DT Performed at [facility], [address] [place] [address] ??[id number] Nile Vitale DROP WIRE BUILDER, STEM LEAD FORMER LAB_1 Performing Organization Address City/State/ZIP Code Phon e Number [facility] [phone] PAP TEST, ROUTINE (05/26/2013 4:30 PM CDT) Component Value Ref Test Analysis Performed At Patholo gist Range Method Time Signature Cytology (NOTE) [facility] Cytology Report [facility] Patient Name: JULIETTE GAMING Taken: 05/26/2013 Received: 05/29/2013 Reported: 06/08/2013 Physician(s): NILE VITALE ([id number]) ?Source of Specimen Pap Test, Routine Cervical/Endocervical: ?Specimen Adequacy ?Satisfactory for evaluation. ??Endocervical component present. ? Final Cytologic Interpretation/Result NEGATIVE FOR INTRAEPITHELIAL LESION OR MALIGNANCY (NILM) ?Other Cytologic Findings Inflammation Electronically Signed Out By ELISHA Johnson (ASCP) ELISHA Johnson (ASCP) ? Pap Smear History Date of Last Menstrual Period: 05/21/2013 ?? Microscopic Description Microscopic examination is performed. [facility] Department of Pathology [address] [place] [address] ??[id number] Specimen Anatomical Collection Method Collection Time Receive d Time (Source) Location / / Volume Laterality 05/26/2013 4:30 PM 3 9:22 CDT AM CDT Nile Vitale APRN, [facility]IL[facility] LAB_1 Performing Organization Address City/State/ZIP Code Phon e Number [facility] [phone] documented in this encounter Visit Diagnoses Diagnosis Routine general medical examination at [facility] facility - Primary Routine general medical examination at a [facility] facility Screening for malignant neoplasm of the cervix Screening examination for venereal disea se Elevated lipids ([facility]) Other and unspecified hyperlipidemia documented in this encounter
--- OUTSIDE RECORDS SUMMARY | 2022-03-10 15:59 | XMS_ITS | Encounter Summary ---
:1990 Author Organization [facility] Address [address], [place] [address] Care Team Providers Name Role Phone Unavailable Primary Care Provider Unavailable Reason for Visit Reason Comments Refill Encounter Details Date Type Department Care Team Description 12/09/2010 Refill [facility] Elaine Latham MD Refill [address] [facility] [address] [place], [place] [address] [address] [place] [address] [phone] (Wo rk) Social History Tobacco Use Types Packs/Day Years Used Date Smoking Tobacco: Never Alcohol Use Standard Drinks/Week Comments No 0 (1 standard drink = 0.6 oz pure alcoho l) Sex Assigned at Date Recorded Not on file documented as of this encounter Nursing Notes Zandra Bartholomew RN - 12/09/2010 1:13 PM CDTApproved Prescriptions: Disp Refills sertraline (AKA ZOLOFT) 50 MG tablet 135 [id number]: TAKE 1.5 TABLETS BY MOUTH DAILY.Authorizing Provider: ELAINE MATUTE User: ZANDRA BARTHOLOMEW Zandra Bartholomew RN - 12/09/2010 1:13 PM CDT Refilled per standing orders. Zandra Bartholomew R.N. documented in this encounter Plan of Treatment Not on filedocumented as of this encounter Visit Diagnoses Not on filedocumented in this encounter
--- OUTSIDE RECORDS SUMMARY | 2022-03-10 15:59 | XMS_ITS | Encounter Summary ---
:1990 Author Organization [facility] Address [address] [place] [address] Care Team Providers Name Role Phone Unavailable Primary Care Provider Unavailable Reason for Referral Consult/Transfer Care - Closed Specialty Diagnoses / Procedures Referred By Contact Refer red To Contact [place] [address] Referral ID Status Reason Start Date Expiration Date Visits Requ ested Visits Authorized [id number] Closed 12/23/2011 1 1 Scheduling Instructions [facility] provider [facility] You may call [phone] to schedule your a ppointment. If you prefer, a mascara molder will contact you within the next 3 business d ays to assist you in setting up this appointment. Reason for Visit Reason Onset Date Comments LAB RESULTS 12/22/2011 Encounter Details Date Type Department Care Team Description 12/22/2011 Telephone Rogelio Palma P Elaine Latham MD LAB RESULTS [id number] [address] [place] [address] [phone] (Wo rk) Social History Tobacco Use Types Packs/Day Years Used Date Smoking Tobacco: Never Smokeless Tobacco: Never Alcohol Use Standard Drinks/Week Comments No 0 (1 standard drink = 0.6 oz pure alcoho l) Sex Assigned at Date Recorded Not on file documented as of this encounter Nursing Notes Dafne Thornton LPN - 12/23/2011 4:05 PM CDT Notified pt. She would like a referral for Business Developer. She agrees to start Iron and recheck in 12 weeks. Dafne Thornton LPN - 12/22/2011 11:21 AM CDT Left message to return call. Dafne Thornton LPN - 12/22/2011 9:52 AM CDT Message copied by DAFNE THORNTON on WedDecember 22, 2011 9:52 AM ------ Message from: ELAINE MATUTE Created: WedDecember 21, 2011 10:26 AM Mildly abnormal labs,recommended Rheumatology consult and supplement with IRON 1T DAILY,RECHECK at 12 week. Elaine Matute MD documented in this encounter Plan of Treatment Scheduled Referrals Name Type Priority Associated Diagnoses Order [facility] RHEUMATOLOGY Referral Routine Ordered: 2011 CONSULT-ADULTS documented as of this encounter Visit Diagnoses Diagnosis Arthralgia - Primary Pain in joint, site unspecified documented in this encounter
--- OUTSIDE RECORDS SUMMARY | 2022-03-10 15:59 | XMS_ITS | Encounter Summary ---
:1990 Author Organization [facility] Address [address] [place] [address] Care Team Providers Name Role Phone Justina Santiago MD Primary Care Provider Unavailable Encounter Details Date Type Department Care Team Description 04/22/2009 [facility] Nursing [address] [place] [address] [id number] Social History Tobacco Use Types Packs/Day Years Used Date Smoking Tobacco: Never Alcohol Use Standard Drinks/Week Comments Not Asked 0 (1 standard drink = 0.6 oz pure alcoho l) Sex Assigned at Date Recorded Not on file documented as of this encounter Plan of Treatment Not on filedocumented as of this encounter Visit Diagnoses Not on filedocumented in this encounter Care Teams Floorleader Relationship Specialty Start Date End Date Justina Santiago MD PCP - General 04/25/07 02/03/10 documented as of this encounter
--- OUTSIDE RECORDS SUMMARY | 2022-03-10 15:59 | XMS_ITS | Encounter Summary ---
:1990 Author Organization [facility] Address [address] [place] [address] Care Team Providers Name Role Phone Justina Santiago MD Primary Care Provider Unavailable Reason for Visit Reason Onset Date Comments LAB TESTS, NOS 07/08/2007 Encounter Details Date Type Department Care Team Description 07/08/2007 Telephone Existence [facility] Justina Santiago MD LAB TESTS, NOS [address] [place], [place] [address] Social History Tobacco Use Types Packs/Day Years Used Date Smoking Tobacco: Never Alcohol Use Standard Drinks/Week Comments Not Asked 0 (1 standard drink = 0.6 oz pure alcoho l) Sex Assigned at Date Recorded Not on file documented as of this encounter Nursing Notes Ree [place] - 07/08/2007 2:24 PM CST Patient scheduled for a Lab Only Visit on 07/13/07 and the lab orders have . Please Cancel or Extend the existing orders if they are still needed. (Highlight the order, click on one of the following icons, Cancel or Extend) Place any new orders as Future orders. After modifying the Orders, please route this Telephone Encounter to the following pool:cn. OPEDIC MECHANIC documented in this encounter Plan of Treatment Not on filedocumented as of this encounter Visit Diagnoses Not on filedocumented in this encounter Care Teams Nautical Instrument Mechanic Relationship Specialty Start Date End Date Justina Santiago MD PCP - General 04/25/07 02/03/10 documented as of this encounter
--- OUTSIDE RECORDS SUMMARY | 2022-03-10 15:59 | XMS_ITS | Encounter Summary ---
:1990 Author Organization [facility] Address [address], [place] [address] Care Team Providers Name Role Phone Unavailable Primary Care Provider Unavailable Reason for Visit Reason Onset Date Comments Refill 05/27/2010 Encounter Details Date Type Department Care Team Description 05/27/2010 Refill [facility] Elaine Latham MD Refill [id number] [facility] [address] [place], [place] [address] [address] [place], [place] [id number] (Wo rk) Social History Tobacco Use Types Packs/Day Years Used Date Smoking Tobacco: Never Alcohol Use Standard Drinks/Week Comments No 0 (1 standard drink = 0.6 oz pure alcoho l) Sex Assigned at Date Recorded Not on file documented as of this encounter Nursing Notes Elaine Shultz - 05/27/2010 6:07 PM CDT Approved Prescriptions: Disp Refills sertraline (AKA ZOLOFT) 50 MG tablet 30 Tab 1 Sig: Take 1 Tab by mouth daily. Authorizing Provider: ELAINE SHULTZ Silvia Smith RN - 05/27/2010 5:23 PM CDT Pending Prescriptions: Disp Refills sertraline (AKA ZOLOFT) 50 MG tablet 30 Tab Sig: Take 1 Tab by mouth daily. Silvia Smith RN - 05/27/2010 5:23 PM CDT RN is unable to fill, because it does not meet medication refill standing order criteria. No Standing Orders Exist RN is unable to fill. Last office visit: 03-13-10 Please review for refill. Ayleen Blanca - 05/27/2010 8:46 AM CDT Last fill on 04/23/10 for a quantity of 30 documented in this encounter Plan of Treatment Not on filedocumented as of this encounter Visit Diagnoses Diagnosis Major depressive disorder, single episod e, moderate ([facility]) Major depressive disorder, single episod e, moderate documented in this encounter
--- OUTSIDE RECORDS SUMMARY | 2022-03-10 15:59 | XMS_ITS | Encounter Summary ---
:1990 [facility] Address [address], [place] [address] Care Team Providers Name Role Phone Unavailable Primary Care Provider Unavailable Reason for Visit Reason Comments Control Consult high cholesterol Encounter Details Date Type Department Care Team Description 12/14/2013 Office Visit [facility] Chaya Armando C ontraception (Primary Obstetrics and MD Dx) Gynecology [address] [place] [id number] [phone] Social History Tobacco Use Types Packs/Day Years [...] Sign Reading Time Taken Comments Blood Pressure 107/68 12/14/2013 1:04 PM CDT Pulse 84 12/14/2013 1:04 PM CDT Temperature - - Respiratory Rate - - Oxygen Saturation - - Inhaled Oxygen Concentration - - Weight 68.6 kg (151 lb 4 oz) 12/14/2013 1:04 PM CDT Height - - Body Mass Index 27.89 05/26/2013 10:49 AM CDT documented in this encounter Patient Instructions Patient InstructionsChaya Armando MD - 12/14/2013 1:27 PM CDT Call [phone] to schedule insertion of Nexplanon or Andreia. documented in this encounter Progress Notes Chaya Armando MD - 12/14/2013 1:12 PM CDT VIDEOGAME DESIGNER Office Note Chief Complaint: Needs to change control SUBJECTIVE: 23 yr old P0, recently dx with very high cholesterol. PCP recommended estrogen- free method. Currently on OCP's for contraception. Has never used any other form of contraception. She is interested in Nexplanon. Discussed r/b/a and common AE's of Nexplanon, as well as depo provera, Andreia and Mirena, andParagard. OBJECTIVE: BP 107/68 Pulse 84 Wt 151 lb 4 oz (68.607 kg) LMP 12/10/2013 >50% of the appt was spent in face to face counseling, total visit time was >25 min. ASSESSMENT: 23 yr old P0 needing change in contraception. PLAN: 1. Refill for 3mo given for OCP, until pt makes decision re: new control. 2. Pt wavering between Nexplanon and Andreia. Advised insertion can be done anytime in her cycle, and then stop the OCP after insertion. Chaya Armando MD 12/14/2013, 1:12 PM documented in this encounter Plan of Treatment Not on filedocumented as of this encounter Visit Diagnoses Diagnosis Contraception - Primary Unspecified contraceptive management documented in this encounter
--- OUTSIDE RECORDS SUMMARY | 2022-03-10 15:59 | XMS_ITS | Encounter Summary ---
:1990 [facility] Address [address] [place] [address] Care Team Providers Name Role Phone Jack, Justina Kowalski MD Primary Care Provider Unavailable Reason for Visit Reason Onset Date Comments COUGH 05/19/2009 Encounter Details Date Type Department Care Team Description 05/19/2009 Telephone Careline Unknown, Physician COUGH [address] [place], [place] [address] [place] [address] [phone] (Wo rk) Social History Tobacco Use Types Packs/Day Years Used Date Smoking Tobacco: Never Alcohol Use Standard Drinks/Week Comments Not Asked 0 (1 standard drink = 0.6 oz pure alcoho l) Sex Assigned at Date Recorded Not on file documented as of this encounter Nursing Notes Nico Gregory - 05/19/2009 6:57 PM CDT Mother has concern that child has flu like symptoms today She started feeling ill 2 days ago with a cough Fever was noted today, temp today is 99.8 with Ibuprofin She did not seem to have a fever yesterday she has body aches She is coughing a lot, c/o chest hurting when she coughs Like her muscles are sore Pain is in the sternal area,and was relieved by taking Ibuprofin In adults, emergency warning signs that need urgent medical attention include: ?? Acute respiratory distress noted with severe dyspnea and/or wheezing Temp > 103??F Pain or pressure in the chest or abdomen Sudden dizziness Sudden onset of confusion Severe or persistent vomiting Does patient have any of these symptoms? No. Does patient complain of having flu-like symptoms that improved but then returned with fever and worse cough? (Pneumonia usually develops later in the flu cycle. Patients will start to improve then relapse.) No. Is the patient experiencing a combination of at least 3 flu symptoms - either fever/chills and two or more of the following flu symptoms or NO fever/chills and 3 or more of the following flu symptoms? ?? Extreme fatigue Muscle aches Headache Cough Sore throat Yes. What is the date of onset? 05/17 Does patient have any of these underlying medical conditions? ?? Immunocompromised due to illness, medication, chemotherapy, or HIV/AIDS Asthma Chronic respiratory disease Diabetes Morbid obesity (BMI >40) Heart disease Neurologic disorder that would compromise respiratory function such as muscular dystrophy or ALS No. Home treatment is appropriate for patients with mild to moderate symptoms who are not in these risk groups. Patient has been advised of the following: ?? Increase fluid intake. Rest, rest, rest. Antipyretics for fever control and body aches. Warm salt water gargles for sore throat. ?? They are contagious until at least 24 hours after fever is gone without the use of antipyretics. To notify the clinic if their symptoms worsen, fail to improve, or improve but then return. Pt/caller instructed to call back or seek care for worsening symptoms, no improvement seen in 4 days, sx of dehydration, dyspnea, relapse of flu symptoms Caller understands and agrees with this plan Nico Gregory RN Leanne Zimmerman - 05/19/2009 6:34 PM CDT Does the patient currently have [employer] insurance? Yes Which care system is the patient affiliated with? [facility] Situation:pt has fever ,body aches and vomited yesterday. A nurse will call you back within the next hour. If you have not heard from a nurse, please feel free to call us back at [phone] and state that you are waiting for a callback. documented in this encounter Plan of Treatment Not on filedocumented as of this encounter Visit Diagnoses Not on filedocumented in this encounter Care Teams Aircraft Electrician Relationship Specialty Start Date End Date Justina Santiago MD PCP - General 04/25/07 02/03/10 documented as of this encounter
--- OUTSIDE RECORDS SUMMARY | 2022-03-10 15:59 | XMS_ITS | Encounter Summary ---
:1990 Author [facility] Address [address] [place] [address] Care Team Providers Name Role Phone Unavailable Primary Care Provider Unavailable Reason for Visit Reason Onset Date Comments QUESTIONS, GENERAL 10/10/2013 Encounter Details Date Type Department Care Team Description 10/10/2013 Telephone [email or web address] Unknown, Ph ysician QUESTIONS, GENERAL Obstetrics and Gynec ology [address] [address] [place], [place] [id number] [phone] (Wo rk) Social History Tobacco Use Types [...] documented as of this encounter Nursing Notes Marysol Vitale, CISCO, FLOUR DISTRIBUTOR - 10/17/2013 9:28 AM CDT Pt was called back-she needs to make appt w FP provider for abnl TSH[hypothyroid range] and elevatedlipids.Explained she needs to get her lipids managed to be able to continue OCPs-gave 3 mo for now to hold her and give enough time for appts.She will contact me after she has been to FP provider..Marysol Vitale NP 10/17/2013, 9:30 AM Brooke Linder RN - 10/13/2013 2:27 PM CDT TSH is 6.10 HBG is 12.6 Glucose is 90 Lipid Panel Cholesterol 342, HDL 68, Triglyceride 193, LDL 235, LDL direct 263. Pt is asking for OCP refill, please advise. Brooke Linder, RN 2:31 PM Tracy Weiss RN - 10/10/2013 2:38 PM CDT Patient is given our fax #. States she will be having blood drawn 10/12/13. Tracy Weiss, MARIIA Heather Purdy - 10/10/2013 2:23 PM CDT Patient would like to speak to his either provider or nurse Name of patient's provider: Marysol Vitale Summarize the patient's question or concern: PT WILL HAVE HER CHOLESTEROL CHECKED AT A CLINIC IN [place] AND THEN HAVE THE RESULTS SENT TO [facility] SO SHE CAN GET HER BC REFILLED Is it okay to leave detailed message on your voicemail? YES If after 3pm, can this wait until tomorrow? YES Heather Purdy documented in this encounter Plan of Treatment Not on filedocumented as of this encounter Visit Diagnoses Not on filedocumented in this encounter
--- OUTSIDE RECORDS SUMMARY | 2022-03-10 15:59 | XMS_ITS | Encounter Summary ---
:1990 Author Organization [facility] Address [address] [place] [address] Care Team Providers Name Role Phone Justina Santiago MD Primary Care Provider Unavailable Encounter Details Date Type Department Care Team Description 07/21/2007 Correspondence External to [facility] Social History Tobacco Use Types Packs/Day Years Used Date Smoking Tobacco: Never Alcohol Use Standard Drinks/Week Comments Not Asked 0 (1 standard drink = 0.6 oz pure alcoho l) Sex Assigned at Date Recorded Not on file documented as of this encounter Progress Notes GARTH OLIVAS PROVIDER - 07/21/2007 12:00 AM SAFETY ADVISOR documented in this encounter Plan of Treatment Not on filedocumented as of this encounter Visit Diagnoses Not on filedocumented in this encounter Care Teams Exhauster Relationship Specialty Start Date End Date Justina Santiago MD PCP - General 04/25/07 02/03/10 documented as of this encounter
--- OUTSIDE RECORDS SUMMARY | 2022-03-10 15:59 | XMS_ITS | Encounter Summary ---
:1990 Author Organization [facility] Address [address] [place] [address] Care Team Providers Name Role Phone Unavailable Primary Care Provider Unavailable Reason for Visit Reason Comments STOMACH PROBLEM noticed she get sick, bloate d after eating large amt of dairy Encounter Details Date Type Department Care Team Description 10/08/2011 Office Visit Paul Lopez MD Dairy product intolerance (Primary Dx); Practice [address] Bloating; [address] [facility] [address] Hypercholesterolemia; SLICK Francois [address] Vaccin for DTP [phone] (Wo rk) Social History Tobacco Use Types Packs/Day Years Used Date Smoking Tobacco: Never Smokeless Tobacco: Never Alcohol Use Standard Drinks/Week Comments No 0 (1 standard drink = 0.6 oz pure alcoho l) Sex Assigned at Date Recorded Not on file documented as of this encounter Last Filed Vital Signs Vital Sign Reading Time Taken Comments Blood Pressure 118/70 10/08/2011 10:08 AM UNIVERSITY ADMINISTRATIVE ASSISTANT Pulse 80 10/08/2011 10:08 AM UNIVERSITY ADMINISTRATIVE ASSISTANT Temperature - - Respiratory Rate - - Oxygen Saturation - - Inhaled Oxygen Concentration - - Weight 60.8 kg (134 lb) 10/08/2011 10:08 AM UNIVERSITY ADMINISTRATIVE ASSISTANT Height - - Body Mass Index 24.71 03/06/2010 4:05 PM CDT documented in this encounter Patient Instructions Patient Paul Solomon MD - 10/10/2011 3:54 PM CST Should you have any questions or concerns, please call my office at [phone], or have a follow-up visit to discuss further. Thank you for letting me serve you. Thank you for visiting [facility]. To contact the clinic directly, please call [phone]. To schedule the appointment(s), please call [phone] or online at [email or web address]. If you need urgent medical help after clinic hours or on weekends, please call: CareLine [phone], or call 911 if any life threatening condition. Paul Taveras MD ERSITY ADMINISTRATIVE ASSISTANT documented in this encounter Progress Notes Paul Taveras MD - 10/13/2011 12:53 AM CDT DATE OF SERVICE: 10/08/2011 SUBJECTIVE: The patient is a 21-year-old female in for lactose intolerance concern. She also had family history of high cholesterol. She is worried about high cholesterol and wants to check her current cholesterollevel. Patient told me for quite a while she has had abdominal bloating and then nausea after drink a big glass of milk or eat some ice cream. Sometimes she also complaining of itching along with those symptoms even. Because of that, she is worried about possible lactose intolerance. She wants some lab test to confirm she has this problem for not. She told me her father had trouble after drink milk. So she is worried that her father has lactose intolerance. She also told me a few of her family member was found to have high cholesterol. Because of that her mother asked her come here to have cholesterol checked. She did have cholesterol checked in 2006. That test showed her total cholesterol, LDL and triglyceride all normal at that time. At that time she was only 17 years old. Now she is 21. She knows high cholesterol is not good for people's heart and vessel. Patient also due for Tdap today. PLAN: 1. Her symptoms indicated most likely patient has dairy product intolerance. There is slight chance she may have allergy to milk. Because lactose intolerance mainly based on the clinical presentation. [facility] has eliminated lab test for this intolerance concern[facility], he confirmed that our system has no lab test for lactose intolerance available anymore. I explained to patient this kind of situation. I told her if she is really concerned about lactose intolerance, she should try a small amount milk every day and gradually desensitize the body and will increase her tolerance to dairy products. Unless she really has allergy to milk product then she should totally avoid dairy products. But as I said the chance for allergy probably is small. To rule out severe dairy product intolerance problem, I ordered CBC and metabolic panel to make sure she has no anemia, no electrolyte imbalance problem. Those results came back everything looks fine. Her glucose level normal 76, fasting. Hemoglobin 13.1. So the worst scenario for this patient likely is dairy product intolerance. 2. For cholesterol concern, I did order a fasting lipid profile for her. The result came back. Her total cholesterol 371, triglyceride 168, LDL 269, HDL of 68. The results did show patient has mixed hyperlipidemia. LDL 269 particularly concerning. I sent a message to patient and asked her to come backto discuss further about her cholesterol concern. I think she certainly should try diet control. Herweight is very high LDL number there is a chance she probably has genetic reason there. If that is the case, she certainly should benefit from early use of statin medicine to decrease her cholesterol and decrease the development of vascular disease in the future for her. 3. Offered Tdap immunization, accepted. Paul Taveras MD MS:clf/clr Paul Taveras MD - 10/10/2011 3:58 PM CST Chief Complaint Patient presents with ??? STOMACH PROBLEM noticed she get sick, bloated after eating large amt of dairy SUBJECTIVE: Please see the dictation for detail. Review of Systems: No fever, cough, short of breath. No chest pain or back pain. No diarrhea or constipation. No dysuria or urinary frequency change. No headache, nausea or vomiting. All other ROS unremarkable. Past Medical History Diagnosis Date ??? Hypercholesterolemia ??? Major depressive disorder, single episode, moderate 02/07/2010 Past Surgical History Procedure Date ??? Extract, wisdom/single tooth Patient Active Problem List Diagnoses Code ??? CHRONIC RHINITIS 472.0 ??? COUGH 786.2 ??? Contraceptive surveillance V25.40B ??? Insomnia 780.52A ??? Hypercholesterolemia 272.0H Allergy: Review of patient's allergies indicates no known allergies. Outpatient prescriptions prior to encounter Medication Sig Dispense Refill ??? Norgestimate-Eth Estradiol (SPRINTEC 28) 0.25-35 MG-MCG tablet Take 1 Tab by mouth daily. 84 Tab3 ??? sertraline (AKA ZOLOFT) 50 MG tablet TAKE 1.5 TABLETS BY MOUTH DAILY. 135 Tab 1 Family History Problem Relation Age of Onset ??? Other Father Possible lactose intolerance Family Status Relation Status Age ??? Mother Alive ??? Father Alive ??? Brother Alive History Social History ??? Marital Status: Single Spouse Name: N/A Number of Children: N/A ??? Years of Education: N/A Occupational History ??? Not on file. Social History Main Topics ??? Smoking status: Never Smoker ??? Smokeless tobacco: Never Used ??? Alcohol Use: No ??? Drug Use: No ??? Sexually Active: Yes -- Male partner(s) Other Topics Concern ??? Not on file Social History Narrative ??? No narrative on file OBJECTIVE: BP 118/70 Pulse 80 Wt 134 lb (60.782 kg) General appearance: Alert, NAD, cooperative Head: normal cephalic Eyes: PERRL, EOMs intact, conjunctiva clear bilaterally Ears: TMs clear with LR intact bilateral,Ext canals patent without inflammation bilateral Nose: normal Oropharynx: normal Neck: supple,without masses Chest: clear to auscultation without rales or wheezes,satisfactory aeration Cardiovascular: S1, S2 without murmur, RSR,normal pulses Abdomen: soft, without masses, distention or organomegaly,bowel sounds intact Back: Back symmetric, no curvature. ROM normal. No CVA tenderness. Extremities: free of edema Lymph: without significant adenopathy Skin: Skin color, texture, turgor normal, No rashes or lesions. Neuro:Gait normal. Reflexes normal and symmetric. Sensation grossly intact. Today or Recent Lab(s): Orders Only on 10/08/2011 Component Value Range Status ??? WBC (k/ul) 5.7 4.0-11.0 Final ??? RBC (M/ul) 4.75 4.0-5.2 Final ??? HGB (g/dl) 13.1 12.0-16.0 Final ??? HCT (%) 40.0 36.0-46.0 Final ??? MCV (fl) 84.0 80-100 Final ??? MCH (pg) 27.6 26-34 Final ??? MCHC (g/dl) 32.8 32-36 Final ??? RDW (%) 11.2* 11.5-14.5 Final ??? PLTS (k/ul) 326 150-450 Final ??? VITAMIN D, 25-OH, TOT (ng/mL) 21.3* 30-80 Final ??? CHOLESTEROL (mg/dl) 371* 0-199 Final ??? TRIGLYCERIDE (mg/dl) 168* 0-149 Final ? ? HDL (mg/dl) 68 >40- Final ??? LDL, CALC. (mg/dl) 269* 0-129 Final ??? NON HDL CHOL, CALC (mg/dl) 303 Final ??? HOURS FASTING (hours) 12 Final ??? ALT (SGPT) (U/L) 15 0-69 Final ??? AST (SGOT) (U/L) 22 0-55 Final ??? BUN (mg/dl) 16 7-20 Final ??? SODIUM (mmol/L) 136 135-145 Final ??? POTASSIUM (mmol/L) 4.5 3.5-5.3 Final ??? CHLORIDE (mmol/L) 102 95-106 Final ??? CO2 (mmol/L) 25 22-30 Final ??? GLUCOSE,FASTING (mg/dl) 76 70-100 Final ??? HOURS FASTING (hours) 12 Final ??? CREATININE (mg/dl) 0.58 0.52-1.04 Final ? ? GFR, ESTIMATED (ml/min/1.73m2) >60.0 >60- Final ? ? GFR EST IF (ml/min/1.73m2) >60.0 >60- Final ??? CALCIUM (mg/dl) 10.1 8.4-10.2 Final ??? ANION GAP (CALC.) (mmol/L) 9 7-16 Final ASSESSMENT/PLAN: Dairy product intolerance - Cancel: CELIAC DISEASE PANEL AND IGA(IF NEEDED); Future - HEMOGRAM/PLTS; Future - Cancel: GLUCOSE - FASTING > 8 HRS FASTING; Future - BASIC METABOLIC PANEL,FASTING; Future Bloating - HEMOGRAM/PLTS; Future - VITAMIN D 25-HYDROXY, TOTAL (V77.99); Future - ALT (SGPT); Future - AST; Future - BASIC METABOLIC PANEL,FASTING; Future Hypercholesterolemia - LIPID PANEL AND DIRECT LDL(IF NEEDED); Future Vaccin for dtp - Tdap 7+ Yrs, one dose only (V06.1) Paul Taveras MD (THIS IS PART OF THE VISITING NOTE FOR THIS VISIT, THE REST PLEASE SEE DICTATED NOTE FOR DETAIL) ERSITY ADMINISTRATIVE ASSISTANT documented in this encounter Plan of Treatment Not on filedocumented as of this encounter Results BASIC METABOLIC PANEL,FASTING (10/08/2011 11:07 AM UNIVERSITY ADMINISTRATIVE ASSISTANT) Analysis Performed At Patho logist Time Signature BUN 16 7 - 20 [facility] mg/dl Sodium 136 135 - 145 [facility] mmol/L Potassium 4.5 3.5 - 5.3 [facility] mmol/L Chloride 102 95 - 106 [facility] mmol/L CO2 25 22 - 30 [facility] mmol/L Glucose 76 70 - 100 [facility] mg/dl Hours Fasting 12 hours [facility] Creatinine 0.58 0.52 - [facility] 1.04 mg/dl GFR, Estimated >60.0 >60 [facility] ml/min/1.7 3m2 GFR, Est., If >60.0 >60 [facility] Black ml/min/1.7 3m2 Calcium 10.1 8.4 - 10.2 [facility] mg/dl Anion Gap 9 7 - 16 [facility] (calc.) mmol/L Specimen Anatomical Collection Method Collection Time Receive d Time (Source) Location / / Volume Laterality 10/08/2011 11:07 10/08/2011 AM UNIVERSITY ADMINISTRATIVE ASSISTANT 11:08 AM UNIVERSITY ADMINISTRATIVE ASSISTANT Paul Taveras MD LAB_1 Performing Organization Address City/State/ZIP Code Phon e Number [facility] [phone] [facility] [address] [address] AST (10/08/2011 11:07 AM UNIVERSITY ADMINISTRATIVE ASSISTANT) athologist Signature AST (SGOT) 22 0 - 55 U/L [facility] Specimen Anatomical Collection Method Collection Time Receive d Time (Source) Location / / Volume Laterality 10/08/2011 11:07 10/08/2011 AM UNIVERSITY ADMINISTRATIVE ASSISTANT 11:08 AM UNIVERSITY ADMINISTRATIVE ASSISTANT Paul Taveras MD LAB_1 Performing Organization Address [facility] Phon e Number [facility] [phone] [address] ALT (SGPT) (10/08/2011 11:07 AM UNIVERSITY ADMINISTRATIVE ASSISTANT) athologist Signature ALT (SGPT) 15 0 - 69 U/L [facility] Specimen Anatomical Collection Method Collection Time Receive d Time (Source) Location / / Volume Laterality 10/08/2011 11:07 10/08/2011 AM UNIVERSITY ADMINISTRATIVE ASSISTANT 11:08 AM UNIVERSITY ADMINISTRATIVE ASSISTANT Paul Taveras MD LAB_1 Performing Organization Address [facility] Phon e Number [facility] [phone] [address] (ABNORMAL) LIPID PANEL AND DIRECT LDL(IF NEEDED) (10/08/2011 11:07 AM UNIVERSITY ADMINISTRATIVE ASSISTANT) [facility] Method Time Signature Cholesterol 371 (H) 0 - 199 [facility] mg/dl Triglyceride 168 (H) 0 - 149 [facility] mg/dl HDL 68 >40 mg/dl [facility] LDL, Calc. 269 (H) 0 - 129 [facility] mg/dl Non HDL Chol, 303 mg/dl [facility] Calc Comment: Non HDLC goal is 30 mg/dl above the patient's desired LDLC goal. Hours Fasting 12 hours [facility] Specimen Anatomical Collection Method Collection Time Receive d Time (Source) Location / / Volume Laterality 10/08/2011 11:07 10/08/2011 AM UNIVERSITY ADMINISTRATIVE ASSISTANT 11:08 AM UNIVERSITY ADMINISTRATIVE ASSISTANT Paul Taveras MD LAB_1 Performing Organization Address [facility] Phon e Number [facility] [phone] [phone] (ABNORMAL) VITAMIN D 25-HYDROXY, TOTAL (V77.99) (10/08/2011 11:07 AM UNIVERSITY ADMINISTRATIVE ASSISTANT) [facility] gist Method Time Signature Vitamin 21.3 (L) 30 - 80 [facility] D,25-OH, Tot ng/mL Comment: Deficiency: ??< 20 ng/mL Insufficiency: ??20-29 ng/mL Optimum Level: ??30-80 ng/mL Possible Toxicity: > 80 ng/mL Performed at [facility] Specimen Anatomical Collection Method Collection Time Receive d Time (Source) Location / / Volume Laterality 10/08/2011 11:07 10/08/2011 AM UNIVERSITY ADMINISTRATIVE ASSISTANT 11:09 AM UNIVERSITY ADMINISTRATIVE ASSISTANT Paul Taveras MD LAB_1 Performing Organization Address [facility] Phon e Number [facility] [phone] [phone] (ABNORMAL) HEMOGRAM/PLTS (10/08/2011 11:07 AM UNIVERSITY ADMINISTRATIVE ASSISTANT) athologist Signature WBC 5.7 4.0 - 11.0 [facility] k/ul RBC 4.75 4.0 - 5.2 [facility] M/ul Hemoglobin 13.1 12.0 - [facility] 16.0 g/dl HCT 40.0 36.0 - [facility] 46.0 % MCV 84.0 80 - 100 [facility] fl MCH 27.6 26 - 34 pg [facility] MCHC 32.8 32 - 36 [facility] g/dl RDW 11.2 (L) 11.5 - [facility] 14.5 % Platelets 326 150 - 450 [facility] k/ul Specimen Anatomical Collection Method Collection Time Receive d Time (Source) Location / / Volume Laterality 10/08/2011 11:07 10/08/2011 AM UNIVERSITY ADMINISTRATIVE ASSISTANT 11:08 AM UNIVERSITY ADMINISTRATIVE ASSISTANT Paul Taveras MD LAB_1 Performing Organization Address [facility] Phon e Number [facility] [phone] [address] documented in this encounter Visit Diagnoses Diagnosis Dairy product intolerance - Primary Other specified intestinal malabsorption Bloating Flatulence, eructation, and gas pain Hypercholesterolemia Pure hypercholesterolemia Need for prophylactic vaccination with c ombined [id number] (DTP) vaccine documented in this encounter
--- OUTSIDE RECORDS SUMMARY | 2022-03-10 15:59 | XMS_ITS | Encounter Summary ---
:1990 Author Organization [facility] Address [address], [place] [address] Care Team Providers Name Role Phone Unavailable Primary Care Provider Unavailable Reason for Visit Reason Onset Date Comments Lab Orders Needed 10/04/2011 Encounter Details Date Type Department Care Team Description 10/04/2011 Telephone [facility] Eduarda Shultz MD Lab Orders Needed [facility] [address] [address] [place] [address] [place], [place] [address] [phone] Social History Tobacco Use Types Packs/Day Years Used Date Smoking Tobacco: Never Alcohol Use Standard Drinks/Week Comments No 0 (1 standard drink = 0.6 oz pure alcoho l) Sex Assigned at Date Recorded Not on file documented as of this encounter Nursing Notes Etelvina Reddy RN - 10/05/2011 3:03 PM CST Patient states she thinks she might be lactose intolerant and would like to find out. Patient notified she should schedule an appointment to be seen. Transferred to schedule. Etelvina Reddy RN IC TECHNICIAN Brisa Hooper - 10/05/2011 2:27 PM CST Pt returned call IC TECHNICIAN Etelvina Reddy, RN - 10/05/2011 8:34 AM CST Why is patient requesting these labs? Any symptoms? Left message to call back. Etelvina Reddy RN IC TECHNICIAN Jossy Mack - 10/04/2011 4:22 PM CST Referral/Order Request Questions: What referral/order is being requested?: GLUCOSE, LIPIDS, LACTOSE INTOLERANT, GLUTEN Why is the referral/order needed?: BLOOD TESTS Is it okay to leave detailed message on your voicemail?: YES If after 3pm, can this wait until tomorrow?: YES Pt told, A referral does not guarantee insurance coverage. Please call the member services number on the back of your insurance ID card to understand what coverage you will have for the services you are requesting. IC TECHNICIAN documented in this encounter Plan of Treatment Not on filedocumented as of this encounter Visit Diagnoses Not on filedocumented in this encounter
--- OUTSIDE RECORDS SUMMARY | 2022-03-10 15:59 | XMS_ITS | Encounter Summary ---
:[address] [facility] Address [address] [place] [address] Care Team Providers Name Role Phone Justina Santiago MD Primary Care Provider Unavailable Reason for Visit Reason Onset Date Comments Medication Questions 05/22/2009 [facility] Encounter Details Date Type Department Care Team Description 05/22/2009 Telephone [facility] Justina Santiago, Medication Questions [id number] Jani Gipson MD (BCP) [place], [place] [address] Social History Tobacco Use Types Packs/Day Years Used Date Smoking Tobacco: Never Alcohol Use Standard Drinks/Week Comments Not Asked 0 (1 standard drink = 0.6 oz pure alcoho l) Sex Assigned at Date Recorded Not on file documented as of this encounter Nursing Notes Jessika Astudillo - 05/22/2009 12:42 PM CDT parent informed of information below. Will call back if any other questions or concerns. Justina Santiago - 05/22/2009 10:47 AM CDT She should start them on the Wednesday after her next period starts. Take one every day and she will have her period when she is taking the last 7 pills which are a different color. When one pack is finished, start a new pack the next day. Zandra James - 05/22/2009 10:34 AM CDT Doesn't understand directions on how to take BCP- When to start them. Zandra James documented in this encounter Plan of Treatment Not on filedocumented as of this encounter Visit Diagnoses Not on filedocumented in this encounter Care Teams Title Insurance Sales Representative Relationship Specialty Start Date End Date Justina Santiago MD PCP - General 04/25/07 02/03/10 documented as of this encounter
--- OUTSIDE RECORDS SUMMARY | 2022-03-10 15:59 | XMS_ITS | Encounter Summary ---
:1990 Author Organization [facility] Address [address], [place] [address] Care Team Providers Name Role Phone Unavailable Primary Care Provider Unavailable Reason for Visit Reason Comments MEDICATION CHECK refill Encounter Details Date Type Department Care Team Description 07/29/2010 Office Visit Elaine López Maj or depressive disorder, single episode, moderate (Primary Dx); Practice MD Contraceptive surveillance [address] Rogelio Lloyd [facility] [address] [place] [phone] Social History Tobacco Use Types Packs/Day Years Used Date Smoking Tobacco: Never Alcohol Use Standard Drinks/Week Comments No 0 (1 standard drink = 0.6 oz pure alcoho l) Sex Assigned at Date Recorded Not on file documented as of this encounter Last Filed Vital Signs Vital Sign Reading Time Taken Comments Blood Pressure 104/54 07/29/2010 4:48 PM MICROSOFT ARCHITECT Pulse 80 07/29/2010 4:48 PM MICROSOFT ARCHITECT Temperature - - Respiratory Rate - - Oxygen Saturation - - Inhaled Oxygen Concentration - - Weight 58.5 kg (129 lb) 07/29/2010 4:48 PM MICROSOFT ARCHITECT Height - - Body Mass Index 23.79 03/06/2010 4:05 PM CDT documented in this encounter Progress Notes Elaine Shultz MD - 07/30/2010 10:53 AM MICROSOFT ARCHITECT DATE OF SERVICE: 07/29/2010 This is a 20-year-old female presenting in the clinic today to followup recurring depression and refill of contraception. PROBLEM 1: Major depression. The patient has been diagnosed with depression back in January. She has been seen in the clinic by me on several times and we started treatment with Zoloft. Unfortunately, the patient did not follow up with us because she moved to a different town for college. She has come back for vacation and right now and presents for followup. She states that lately she is feeling significantly better. No side effects from Zoloft. She still continues periodically has at times has some suicidal thoughts but she never will hurt herself. She has a lot of support from her friends and fromher family. Lately, the patient has not seen a counselor. In the past it has been pretty helpful. Denies any illicit drugs. No alcohol use. No smoking. PROBLEM 2: Contraception. The patient has been taking control since 2008. No side effects from the medication. She is sexually active with one partner right now. No Pap smear was done in the past. No STD. The patient denied any side effects from the control. PHYSICAL EXAMINATION: Vital signs: Normal. General: Answers to questions appropriately. Denied any hallucinations, delusions. Denied any suicidal plan right now. Occasionally gets some suicidal ideation. PHQ-9 score today is 10. ASSESSMENT AND PLAN: 20-year-old female with 2 medical concerns. 1. Major depression: Discussed in detail. I would recommend to increase the Zoloft from 50 to 75 mg in the next 2 weeks and if no improvement may consider doubling the dose. Also, encouraged to come back for counseling on a regular basis. Followup with us in approximately 4 weeks. 2. Contraception: I will refill the control for the patient. She will come back for Pap smearat age 22. Elaine Shultz MD GLK:bjr Dictated: 07/29/2010 17:10:41 Transcribed: 07/30/2010 08:46:13 Job: [id number] Doc: [id number] cc: OSOFT ARCHITECT Elaine Shultz MD - 07/29/2010 5:10 PM CST This office note has been dictated. Elaine Shultz MD OSOFT ARCHITECT documented in this encounter Plan of Treatment Not on filedocumented as of this encounter Visit Diagnoses Diagnosis Major depressive disorder, single episod e, moderate ([facility]) - Primary Major depressive disorder, single episod e, moderate Contraceptive surveillance Contraceptive surveillance, unspecified documented in this encounter
--- OUTSIDE RECORDS SUMMARY | 2022-03-10 15:59 | XMS_ITS | Encounter Summary ---
:1990 Author Organization [facility] Address [address], [place] [address] Care Team Providers Name Role Phone Unavailable Primary Care Provider Unavailable Reason for Visit Reason Comments BLEEDING, BREAKTHROUGH Encounter Details Date Type Department Care Team Description 03/06/2010 Office Visit [facility] Chaya Armando M etrorrhagia (Primary Obstetrics and MD Dx) Gynecology [address] [place], [place] [phone] Social History Tobacco Use Types Packs/Day Years Used Date Smoking Tobacco: Never Alcohol Use Standard Drinks/Week Comments No 0 (1 standard drink = 0.6 oz pure alcoho l) Sex Assigned at Date Recorded Not on file documented as of this encounter Last Filed Vital Signs Vital Sign Reading Time Taken Comments Blood Pressure 110/70 03/06/2010 4:05 PM CDT Pulse - - Temperature - - Respiratory Rate - - Oxygen Saturation - - Inhaled Oxygen Concentration - - Weight 52.6 kg (116 lb) 03/06/2010 4:05 PM CDT Height 156.8 cm (5' 1.75) 03/06/2010 4:05 PM CDT Body Mass Index 21.39 03/06/2010 4:05 PM CDT Body Mass Index Percentile 49.17 % 03/06/2010 4:05 PM CD T Growth Chart: CDC (Girls, 2-20 Years) documented in this encounter Progress Notes Chaya Armando - 03/06/2010 4:26 PM CDT ORTHOPEDIC RADIOLOGIC TECHNOLOGIST Office Note Chief Complaint: Intermenstrual bleeding on OCP's. SUBJECTIVE: 19 yr old P0 was seen by her cold press operator in 05/2009. She was requesting contraception at that time.She was having regular monthly menses. She was started on generic Alesse. Since starting the pill, she gets a normal period during the placebo week of pills, but also gets some dark brown bleeding/spott ing during the second week of pills. She gets cramping with that bleeding as well. Also, she c/o bloating and cramping during the placebo week of pills when she is menstruating. Denies any abdominal pain vaginal symptoms. She will be going to college later this month. OBJECTIVE: BP 110/70 Ht 5' 1.75 (1.568 m) Wt 116 lb (52.617 kg) LMP 03/05/2010 >50% of the appt was spent in face to face counseling, total visit time was >20 min. ASSESSMENT: 19 yr old P0 with IMB on OCP's. PLAN: 1. Will switch to a higher estrogen dose pill to decrease the mid cycle spotting. Advised there may be other side effects, such as nausea, breast tenderness, and cramping. 2. Advised use of ibuprofen and midol or pamprin during her period to ameliorate her sx of bloating and cramping during the placebo week. 3. Pt to f/u this May for refills and for RHM, either with the OB clinic or with her PCP. Chaya Armando MD 03/06/2010, 4:22 PM documented in this encounter Plan of Treatment Not on filedocumented as of this encounter Visit Diagnoses Diagnosis Metrorrhagia - Primary documented in this encounter
--- OUTSIDE RECORDS SUMMARY | 2022-03-10 15:59 | XMS_ITS | Encounter Summary ---
:1990 Author Organization [facility] Address [address] [place] [address] Care Team Providers Name Role Phone Unassigned, Provider Primary Care Provider Unavailable Encounter Details Date Type Department Care Team Description 07/16/2006 Correspondence None Unknown, Physici an CONSENT AND RELEASE [address] [place] [address] (Wo rk) Social History Tobacco Use Types Packs/Day Years Used Date Smoking Tobacco: Never Alcohol Use Standard Drinks/Week Comments Not Asked 0 (1 standard drink = 0.6 oz pure alcoho l) Sex Assigned at Date Recorded Not on file documented as of this encounter Progress Notes Unknown, Physician - 07/16/2006 12:00 AM 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
--- OUTSIDE RECORDS SUMMARY | 2022-03-10 15:59 | XMS_ITS | Encounter Summary ---
:1990 Author Organization [facility] Address [address] [address] Care Team Providers Name Role Phone Unavailable Primary Care Provider Unavailable Reason for Visit Reason Comments DEPRESSION Encounter Details Date Type Department Care Team Description 02/06/2010 Office Visit Elaine López, or Depressive Practice MD Disorder, Single [address] Episode, [place] [address] (Primary Dx) [phone] [place] [address] (Wo rk) Social History Tobacco Use Types Packs/Day Years Used Date Smoking Tobacco: Never Alcohol Use Standard Drinks/Week Comments Not Asked 0 (1 standard drink = 0.6 oz pure alcoho l) Sex Assigned at Date Recorded Not on file documented as of this encounter Last Filed Vital Signs Vital Sign Reading Time Taken Comments Blood Pressure 102/60 02/06/2010 11:14 AM CDT Pulse 88 02/06/2010 11:14 AM CDT Temperature - - Respiratory Rate - - Oxygen Saturation - - Inhaled Oxygen Concentration - - Weight 54.9 kg (121 lb) 02/06/2010 11:14 AM CDT Height - - Body Mass Index - - documented in this encounter Patient Instructions Patient InstructionsElaine Shultz - 02/06/2010 11:27 AM CDT Depression When you are depressed, your mood is sad and few things seem interesting or pleasurable. It can affect your appetite and contribute to weight loss or gain. You may sleep more or less. People with depression often feel restless and yet tired at the same time. Often, it is hard to concentrate or make decisions, especially the decision to get up and do something. Feelings of worthlessness, helplessness and guilt may be present. People with depression often feel like being by themselves and find it hardto be around others. Thoughts of are common, and you may even think about suicide. Treatment - Cognitive Behavioral Therapy (CBT) CBT focuses on current issues and the symptoms of depression versus focusing on a person???s past history. CBT for depression involves: ?? Increasing Activity Since a major feature of depression is feeling tired, passive, and without motivation, behavioral activation (or increasing activity) directly combats depression and the ways it has interfered with life. ?? Changing Depressed Thinking People with depression often have consistent patterns of thinking that contribute to depression. They also have ideas or rules, called ???core beliefs?? that keep them depressed. In CBT, the patient and therapist work together to identify depressive thinking. In therapynew, more effective ways of thinking are developed to help the patient successfully adapt. We call this ???cognitive restructuring?? . ?? Enhancing Problem-Solving Skills Depression often limits a person???s ability to see different solutions to life???s problems. Having unresolved problems adds to depression. This can lead to a downward spiral. Building on behavioral activation and cognitive restructuring, the patient and therapist begin to brainstorm possible solutions and learn specific problem-solving strategies. ?? Relapse Prevention Although someone may have recovered from depression, they are often at high risk for a relapse. Relapse prevention focuses on developing better self-awareness, specific skills, and a plan to maintain the improvements and intercept depression if it begins to return. Getting Help - If you believe you are suffering from depression, please contact the [facility] to schedule an appointment. documented in this encounter Progress Notes Elaine Shultz - 02/07/2010 9:45 AM CDT This office note has been dictated. Elaine Shultz MD Elaine Shultz - 02/06/2010 12:00 AM CDT This is an 19-year-old female present in the clinic today with the main concern of depression. HISTORY OF PRESENT ILLNESS: This, in general, a pretty healthy female states that in a long time she suffered from depression, which has been progressively getting worse in the last month. The patient has been seeing psychologist for several months right now, which has been helpful, but her psychologist recommended to discuss with her primary physician about the treatment for the worsening of depression. She states that in the last couple of weeks she is feeling more depressed, she is feeling down almost all the time, occasionally she got some suicidal thought, but the patient really does not have any plan. Usually, the thought is coming if she is alone at home. The patient states that it has been no more stress than usual. She graduated from the high school and she is planning to go to the college. The patient is not sure really what she wants to do. In general, she is pretty healthy. She does not smoke, no alcohol, no drug. She stays together with her family. Family has been supportive. She is very close with her mom. The patient denies any family history of depression. The patient is thinking that behavioral health consult has been helpful, but right now she needs a little bit more help to go through her depression. PHYSICAL EXAM: Normal. Not in acute distress. Well groomed, answers to question appropriately. Denies any hallucination, delusion. Denies any suicidal thought or ideation. Judgment and insight intact. PHQ-9 score today is 17. ASSESSMENT AND PLAN: Vnzpbkch-llju-pal female with major depression, moderate. 1. Had a long conversation about the treatment option. 2. Information about the crisis line was given. The patient should be seen immediately if suicidal thought or ideation. 3. Continue counseling on a regular basis. 4. We will start treatment with Zoloft 25 mg. After five-seven days if no improvement, the patient can double the dose. 5. Follow up with us in two weeks or any time if worsening or new symptom develops. More than 45 minutes spent with the patient, most of the time with counseling, answering of the question. A / P tdy cc: documented in this encounter Plan of Treatment Not on filedocumented as of this encounter Visit Diagnoses Diagnosis Major depressive disorder, single episod e, moderate ([facility]) - Primary Major depressive disorder, single episod e, moderate documented in this encounter
--- OUTSIDE RECORDS SUMMARY | 2022-03-10 15:59 | XMS_ITS | Encounter Summary ---
:1990 Author Organization [facility] Address [address] [place] [address] Care Team Providers Name Role Phone Unavailable Primary Care Provider Unavailable Reason for Visit Reason Comments MEDICATION CHECK follow up on Zoloft. LAB TESTS, NOS Pt due for Chlamydia MEDICATION CHECK refill pended Encounter Details Date Type Department Care Team Description 02/18/2011 Office Visit Elaine López Maj or depressive disorder, single episode, moderate (Primary Dx); Practice MD Screening for STDs (sexually transmitted diseases); [address] Contraceptive surveillance; [address] [place] [address] [address] [phone] [id number] Social History Tobacco Use Types Packs/Day Years Used Date Smoking Tobacco: Never Alcohol Use Standard Drinks/Week Comments No 0 (1 standard drink = 0.6 oz pure alcoho l) Sex Assigned at Date Recorded Not on file documented as of this encounter Last Filed Vital Signs Vital Sign Reading Time Taken Comments Blood Pressure 106/62 02/18/2011 1:40 PM CDT Pulse 80 02/18/2011 1:40 PM CDT Temperature - - Respiratory Rate - - Oxygen Saturation - - Inhaled Oxygen Concentration - - Weight 58.1 kg (128 lb) 02/18/2011 1:40 PM CDT Height - - Body Mass Index 23.6 03/06/2010 4:05 PM CDT documented in this encounter Patient Instructions Patient InstructionsElaine Shultz MD - 02/18/2011 1:54 PM CDT Sleeping Hygiene Your Personal Habits: Fix a bedtime and an awakening time. Do not be one of those patients who allows bedtime and awakening time to drift. The body gets used to falling asleep a a certain time, but only if this is relatively fixed. Even if you are retired or not working, this is an essential component of good sleeping habits. Avoid napping during the day. If you nap throughout the day, it is no wonder that you will not be able to sleep at night. The late afternoon for most people is a sleepy time. Many people will take a nap at that time. This is generally not a bad thing to do, provided you limit the nap to 30-45 minutes and can fall sleep well at night. Avoid alcohol 4-6 hours before bedtime. Many people believe that alcohol helps them sleep. While alcohol has an immediate sleep-inducing effect, a few hours later as the alcohol levels in your blood start to fall, there is a stimulant or wake-up effect. Avoid caffeine 4-6 hours before bedtime. This includes caffeinated beverages such as coffee, tea andmany sodas, as well as chocolate, so be careful. Avoid heavy, spicy, or sugary food 4-6 hours before bedtime. These can affect your ability to stay asleep. Exercise regularly, but not right before bed. Regular exercise, particularly in the afternoon, can help deepen sleep. Strenuous exercise within the 2 hours before bedtime, however, can decrease your ability to fall asleep. Your Sleeping Environment: Use comfortable bedding. Uncomfortable bedding can prevent good sleep. Evaluate whether or not this is a source of your problem, and make appropriate changes. Find a comfortable temperature setting for sleeping and keep the room well ventilated. If your bedroom is too cold or too hot, it can keep you awake. A cool (not cold) bedroom is often most conducive to sleep. Block out all distracting noise, and eliminate as much light as possible. [place] the bed for sleep and sex. Don't use the bed as an office, workroom or recreation room. Let your body know that the bed is associated with sleeping. Getting Ready For Bed: Try a light snack before bed. Warm milk and foods high in the amino acid tryptophan, such as bananas, may help you to sleep. Practice relaxation techniques before bed. Relaxation techniques such as yoga, deep breathing and others may help relieve anxiety and reduce muscle tension. Don't take your worries to bed. Leave your worries about job, scool, daily life, etc., behind when you go to bed. Some people find it useful to assign a worry period during he evening or late afternoon to deal with these issues. Establish a pre-sleep ritual. Pre-sleep rituals, such as a warm bath or a few minutes of reading, can help you sleep. Getting into your favorite sleeping position. If you don't fall asleep within 15-30 minutes, get up,go into another room, and read until sleepy. Getting Up in the Middle of the Night: Most people wake up one or two times a night for various reasons. If you find that you get up i nthemiddle of the night and cannot get back to sleep within 15-20 minutes, then do not remain in bed trying hard to sleep. Get out of bed. Leave the bedroom. Read, have a light snack, do some quite activity, or take a bath. You will generally find that you can get back to sleep 20 minutes or so later. Do not perform challenging or engaging activity such as office work, housework, etc. Do not watch television. A Word About Television: Many people fall asleep with the television on in their room. Watching television before bedtime is often a bad idea. Television is a very engaging medium that tends to keep people up. We generally recommend that the television not be on in the bedroom. At the appropriate bedtime, the TV should be turned off and the patient should go to sleep. Some people find that the radio helps them go to sleep. Since radio is a less engaging medium than TV, this is probably a good idea. Other Factors: Serveral physical factors are known to upset sleep. These include arthritis, acid reflux with heartburn, menstruation, headaches and hot flashes. Psychological and mental health problems like depression, anxiety and stress are often associated with sleeping difficulty. In many cases, difficulty staying asleep may be the only presenting sign of depression. A physician should be consulted about these issues to help determine the problem and the best treatment. Many medications can cause sleeplessness as a side effect. Ask your doctor or pharmacist if medications you are taking can lead to sleeplessness. To help overall improvement in sleep patterns, your doctor may prescribe sleep medications for short-term relief of a sleep problem. The decision to take sleeping aids is a medical one to be made in the context of your overall health picture. Always follow the advise of your physician and other healthcare professionals. The goal is to rediscover how to sleep naturally. documented in this encounter Progress Notes Elaine Shultz MD - 02/19/2011 9:49 PM CDT DATE OF SERVICE: 02/18/2011 SUBJECTIVE: This is a 20-year-old female present in the clinic today to discuss about several medical problems. 1. Major depression. The patient has been diagnosed with major depression for a long period of time, and the last time she had been seen in the clinic back in 07/2010. At that time we decided to increase her Zoloft. She is supposed to take 75 mg right now. She states that in the last several months she missed a lot of doses. Usually she has been taking it a couple times a week. The patient states that when she forgot to take her medication, she did not have any withdrawal symptoms. Generally, she is doing very well. Denied any suicidal thoughts or ideation. The patient is wondering about the possibility to discontinue taking her medication. She stays at home right now. It has been a little bit stressful, but she is planning to move into her own apartment in 1 month and go back to school and looking forward to it. Occasionally she drinks some alcohol. No drugs. No smoking. 2. Insomnia. Has a long history of insomnia. Since high school, the patient has been taking yvwd-uze-kvhwnvi melatonin, which seemed to help in the beginning, but lately it has not helped significantly. The patient usually goes to sleep at 6:00 or 5:00 a.m. and sleeps until 2:00 p.m. and often finds it very difficult to fall asleep. The patient never took any prescription medication for sleeping. 3. Contraception. The patient would like to get a refill of her Sprintec, which she has been takingon a regular basis without any side effects. The patient denied any abnormal vaginal bleeding or pain. Overall, feeling very well. PHYSICAL EXAMINATION: Vital Signs: Blood pressure 106/62. Heart rate 80. General: Not in acute distress. Psych: Well groomed. Answers to questions appropriately. Denied any hallucinations, delusions. Denied any suicidal thought or ideation. Judgment and insight intact. PHQ-9 score is 9 today. ASSESSMENT AND PLAN: 20-year-old female, followup with several medical problems. 1. Major depression. Because the patient missed multiple doses and no withdrawal symptoms, decided to discontinue the Zoloft and monitor her symptoms closely. If the patient became symptomatic, shouldcontact us immediately or follow up. Discussed with the patient about the high risk for reoccurrenceof depression. Should be seen soon if it reoccurs. 2. Insomnia. Discussed in detail about sleep hygiene. Information was given. Recommend to avoid anysleeping aids, except may get a trial of tghy-cpc-osrxgpk Tylenol PM or Aleve PM to regulate sleep cycle in the beginning. 3. Contraception. Refill of Sprintec. Recommend a Pap smear at age 22. Also will screen the patient for Chlamydia. Agreed with the plan. Elaine Shultz MD GLK:radha Dictated: 02/18/2011 14:17:05 Transcribed: 02/19/2011 09:21:10 Job: [id number] Doc: [id number] cc: Elaine Shultz MD - 02/18/2011 1:57 PM CDT This office note has been dictated. Elaine Shultz MD documented in this encounter Plan of Treatment Not on filedocumented as of this encounter Procedures Procedure Name Priority Date/Time Associated Diagnosis Comme nts CHLAMYDIA, URINE Routine 02/18/2011 2:01 PM Screening for STDs Results for this (14 YEARS AND CDT (sexually procedure are in OLDER) transmitted the results diseases) section. documented in this encounter Results CHLAMYDIA, URINE (02/18/2011 2:01 PM CDT) [facility] Method Time Signature C.trachomatis Negative [facility] , Urine Comment: Test Performed by Software Quality Engineer Mediated Amplification Specimen Anatomical Collection Method Collection Time Receive d Time (Source) Location / / Volume Laterality Urine specimen 02/18/2011 2:01 PM 011 2:04 (specimen) CDT PM CDT Elaine Shultz MD LAB_1 Performing Organization Address City/State/ZIP Code Phon e Number [facility] [phone] [facility] [address] [place] [id number] documented in this encounter Visit Diagnoses Diagnosis Major depressive disorder, single episod e, moderate ([facility]) - Primary Major depressive disorder, single episod e, moderate Screening for STDs (sexually transmitted diseases) Screening examination for venereal disea se Contraceptive surveillance Contraceptive surveillance, unspecified Insomnia Insomnia, unspecified documented in this encounter
--- OUTSIDE RECORDS SUMMARY | 2022-03-10 15:59 | XMS_ITS | Encounter Summary ---
:1990 Author Organization [facility] Address [address] [place] [address] Care Team Providers Name Role Phone Justina Santiago MD Primary Care Provider Unavailable Reason for Referral Specialty Diagnoses / Procedures Referred By Contact Refer red To Contact Justina Santiago MD [facility] [address] [place] [id number] Referral ID Status Reason Start Date Expiration Date Visits Requ ested Visits Authorized Reason for Visit Reason Comments WELL CHILD EXAM seen a while ago for back an d shoulder pain and it still bugs her from time to time. Encounter Details Date Type Department Care Team Description 05/05/2007 Office Visit Rogelio Lloyd Pediatri Justina Santiago, Routine Infant or Child Heal th Check (Primary Dx); [id number] Jani Gipson MD Vaccin 1 Bacteria NEC; SLICK [place] 5543 3 Need Vaccination-Viral Disea se; [phone] Back Pain Social History Tobacco Use Types Packs/Day Years Used Date Smoking Tobacco: Never Alcohol Use Standard Drinks/Week Comments Not Asked 0 (1 standard drink = 0.6 oz pure alcoho l) Sex Assigned at Date Recorded Not on file documented as of this encounter Last Filed Vital Signs Vital Sign Reading Time Taken Comments Blood Pressure 100/60 05/05/2007 3:00 PM CDT Pulse - - Temperature 36.6 ??C (97.9 ??F) 05/05/2007 3:00 PM CDT Respiratory Rate - - Oxygen Saturation - - Inhaled Oxygen Concentration - - Weight 46.3 kg (102 lb) 05/05/2007 3:00 PM CDT Height 154.3 cm (5' 0.75) 05/05/2007 3:00 PM CDT Body Mass Index 19.43 05/05/2007 3:00 PM CDT Body Mass Index Percentile 37.38 % 05/05/2007 3:00 PM CD T Growth Chart: [facility] (Girls, 2-20 Years) documented in this encounter Patient Instructions Patient Wbwyvjfjlnvm74/04/2007 3:01 PM CDT It has been a pleasure attending to Juliette's health maintenance needs today. documented in this encounter Progress Notes Justina Santiago - 05/05/2007 3:01 PM CDT S> Juliette Gaming is a 16 yr female who presents accompanied by her mother for routine childcare center director. PARENTAL/PATIENT CONCERNS: occasional back and shoulder pain, no known injury SCHOOL Name: [employer] Grade: 10th Success: b's SPORTS/RECREATION/ACTIVITIES Sports: hockey Exercise: sedentary habits Cardiovascular Risk: family history of high cholesterol: mom Extracurricular Activities: none Recreation/Hobbies/TV: 3 hours/day screen time I have reviewed and updated the family, past and surgical history. DAILY ACTIVITIES Nutrition: well balanced and varied diet, adequate milk intake Sleep: adequate sleep Dental Care: last dental visit within 6 months brushes daily DEVELOPMENTAL ASSESSMENT: FAMILY/RELATIONSHIPS/COMMUNITY Current Living Situation: lives with parent(s) Family: no problems identified Peer: sociable Abuse: absent Mental Health Issues: None Active Support/Resources: none ENVIRONMENTAL RISKS Tuberculosis Screening: Not indicated ----- REVIEW OF SYSTEMS: Detailed review of systems including constitutional, skin, eyes, ENT, resp, CVS, GI & , revealed no abnormality except as detailed above. Menstrual History (if applicable): menses monthly REQUIRED TESTING: Hemoglobin Prior Hgb: HGB (g/dl) Date Value 03/12/2004 13.4 Hemoglobin test required?: No. Kidney/Bladder Screening: Prior Urine: No results found for this basename: uleuk Urinalysis required?: No ----- O> BP 100/60 Temp (Src) 97.9 ??F (36.6 ??C) (Tympanic) Ht 5' 0.75 (1.543 m) Wt 102 lb (46.27 kg) Normal Abnormal GENERAL: X HEENT: Head: X Eyes/Nose: X Ears: X Mouth/Pharynx: X NECK: X LYMPHATICS: X LUNGS: X CV: X ABDOMEN: X : X MS: X NEURO: X SKIN: X VISION: Objective exam completed. No problems found. and Subjective assessment. No problems found Visual acuity screening: performed and documented in nurse's note. HEARING:Objective exam completed. No problems found. and Subjective assessment. No problems found Audiogram passed. JALEESA STAGING: BREASTS 4: areola and papilla form second mound above rest of breast PUBIC HAIR 4: adult-type hair, covers less area than adults, no spread to medial surface of A> Healthy young adolescent. Shoulder and back pain, referred to PT P> Per orders and patient instructions. Counseling: Immunizations: Discussed risks, benefits and side effects of immunizations given today. Social: peer pressure Parenting: increased autonomy in decision making Nutrition: age specific nutritional needs Play and communication: organized sports/regular exercise and appropriate use of TV/video games (total Screen Time) Health: sexual exploration Dental: Reinforced benefits of daily dental care. Emphasized need for annual dental exam by a licensed dentist Safety: no safety issues identified. Sexuality: the following issues were discussed: safe sex/abstinence education Follow-up: Next preventive health care visit in 2 years Justina Santiago - 05/05/2007 12:00 AM CDT documented in this encounter Nursing Notes 05/05/2007 3:00 PM CDT >> Jessika Astudillo CMA [facility] May 05, 2007 3:[address] Santiago has given the verbal ok to give immunizations to this patient. Please see immunization documentation for additional information. Jessika Astudillo CMA >> Jessika Astudillo CMA [facility] May 05, 2007 3:01 PM Eye exam: L: 20/ 20, R: 20/ 20 Lenses: NO documented in this encounter Plan of Treatment Not on filedocumented as of this encounter Results (ABNORMAL) HEMOGRAM/PLTS (07/13/2007 7:42 AM CONFIGURATOR) athologist Signature WBC 5.5 4.0 - 11.0 [facility] k/ul RBC 4.30 4.1 - 5.1 [facility] M/ul Hemoglobin 11.4 (L) 12.0 - [facility] 16.0 g/dl HCT 35.6 (L) 36.0 - [facility] 46.0 % MCV 82.7 78 - 98 fl [facility] MCH 26.5 25 - 35 pg [facility] MCHC 32.1 32 - 36 % [facility] RDW 14.3 11.5 - [facility] 14.5 % Platelets 310 150 - 450 [facility] k/ul Specimen Anatomical Collection Method Collection Time Receive d Time (Source) Location / / Volume Laterality 07/13/2007 7:42 AM 7 7:43 CONFIGURATOR AM CONFIGURATOR Justina Santiago MD LAB_1 Performing Organization Address City/[facility]/[place]IP [facility] Phon e Number [facility] [phone] [address] CHOLESTEROL LIPID PANEL FAST >12HR (07/13/2007 7:42 AM CONFIGURATOR) athologist Signature Cholesterol 198 <200 mg/dl [facility] Triglyceride 93 <200 mg/dl [facility] HDL 55 >35 mg/dl [facility] LDL, Calc. 124 mg/dl [facility] Hours Fasting 12 hours [facility] Specimen Anatomical Collection Method Collection Time Receive d Time (Source) Location / / Volume Laterality 07/13/2007 7:42 AM 7 7:43 CONFIGURATOR AM CONFIGURATOR Justina Santiago MD LAB_1 Performing Organization Address [facility] Phon e Number [facility] [phone] [facility] [address] [place] [phone] documented in this encounter Visit Diagnoses Diagnosis Routine or child health check - P rimary Need for other specified prophylactic va ccination against single bacterial disease Need for prophylactic vaccination and in oculation against other viral diseases(V04.89) Need for prophylactic vaccination and in oculation against other viral diseases Back pain Backache, unspecified documented in this encounter Care Teams Supervisor Solder Making Relationship Specialty Start Date End Date Justina Santiago MD PCP - General 04/25/07 02/03/10 documented as of this encounter
--- OUTSIDE RECORDS SUMMARY | 2022-03-10 15:59 | XMS_ITS | Encounter Summary ---
:1990 Author Organization [facility] Address [address] [address] Care Team Providers Name Role Phone Unassigned, Provider Primary Care Provider Unavailable Reason for Visit Reason Comments BACK PAIN, LOW no known injury. started chaka ting on wednesday. Encounter Details Date Type Department Care Team Description 02/25/2007 Office Visit Rogelio Lloyd Pediatri cs Justina Santiago, Back Pain (Primary Dx) [address] [place] [address] Social History Tobacco Use Types Packs/Day Years Used Date Smoking Tobacco: Never Alcohol Use Standard Drinks/Week Comments Not Asked 0 (1 standard drink = 0.6 oz pure alcoho l) Sex Assigned at Date Recorded Not on file documented as of this encounter Last Filed Vital Signs Vital Sign Reading Time Taken Comments Blood Pressure - - Pulse - - Temperature - - Respiratory Rate - - Oxygen Saturation - - Inhaled Oxygen Concentration - - Weight 46.3 kg (102 lb) 02/25/2007 2:20 PM CDT Height 154.9 cm (5' 1) 02/25/2007 2:20 PM CDT Body Mass Index 19.27 02/25/2007 2:20 PM CDT Body Mass Index Percentile 36.43 % 02/25/2007 2:20 PM CD T Growth Chart: [facility] (Girls, 2-20 Years) documented in this encounter Progress Notes Justina Santiago - 02/25/2007 2:47 PM CDT SUBJECTIVE: Juliette Gaming is a 16 yr female who presents today for evaluation of back pain. The pain started 4 day(s) ago, not associated with any specific event, but she has been taking a summer gym class and had hockey camp. Since then the pain comes and goes. The pain is located in the lower back without radiation. Associated symptoms include: none. Alleviating factors include: lying down and rest. Aggravating factors include: sitting and running. Psychosocial stressors include: none. OBJECTIVE: Normal features of the exam: gait normal, heel and toe walking intact, deep tendon reflexes at kneesand ankles +2, spine nontender to palpation, sacroiliac areas nontender, sensation intact at medial,dorsal, and lateral aspects of the feet, strength normal throughout and straight leg raising negative on both legs. Abnormal features of the exam: none. ASSESSMENT: Acute Low Back Pain PLAN: Back pain education given, back exercises recommended and ibuprofen. X-rays, CT, and MRI not indicated. Follow-up if worse or not improving. documented in this encounter Plan of Treatment Not on filedocumented as of this encounter Visit Diagnoses Diagnosis Back pain - Primary Backache, unspecified documented in this encounter Care Teams Child Abuse Worker Relationship Specialty Start Date End Date Unassigned, Provider PCP - General 05/05/00 04/24/[address] [place] [id number] documented as of this encounter
--- OUTSIDE RECORDS SUMMARY | 2022-03-10 15:59 | XMS_ITS | Encounter Summary ---
:1990 Author Organization [facility] Address [address], [place] [address] Care Team Providers Name Role Phone Unavailable Primary Care Provider Unavailable Reason for Visit Reason Comments MEDICATION CHECK Encounter Details Date Type Department Care Team Description 03/13/2010 Office Visit Elaine López, or Depressive Practice MD Disorder, [facility] [address] Episode, Mod[place] [address] [address] (Primary Dx) [phone] [place], [place] [address] (Wo rk) Social History Tobacco Use Types Packs/Day Years Used Date Smoking Tobacco: Never Alcohol Use Standard Drinks/Week Comments No 0 (1 standard drink = 0.6 oz pure alcoho l) Sex Assigned at Date Recorded Not on file documented as of this encounter Last Filed Vital Signs Vital Sign Reading Time Taken Comments Blood Pressure 110/66 03/13/2010 4:10 PM CDT Pulse 70 03/13/2010 4:10 PM CDT Temperature - - Respiratory Rate - - Oxygen Saturation - - Inhaled Oxygen Concentration - - Weight 53.6 kg (118 lb 4 oz) 03/13/2010 4:10 PM CDT Height - - Body Mass Index 21.8 03/06/2010 4:05 PM CDT Body Mass Index Percentile 54.15 % 03/13/2010 4:10 PM CD T Growth Chart: [facility] (Girls, 2-20 Years) documented in this encounter Progress Notes Elaine Shultz - 03/13/2010 4:56 PM CDT This office note has been dictated. Elaine Shultz MD Elaine Shultz - 03/13/2010 12:00 AM CDT This is an 19-year-old female present in the clinic today to follow up with her major depression. HISTORY OF PRESENT ILLNESS: This is an 19-year-old female has been seen in the clinic since February 06 when she has been diagnosed with major depression. We started treatment with Zoloft and she got a significant improvement. She has been taking 50 mg since last visit on February 25. She states that she is doing significantly better. Her PHQ-9 score today is 8. She still continued to get occasionally suicidal thought, but no plan. She follows up with a psychologist on a weekly basis. She feels more happy right now and her family member noticed a big difference. The patient states that next week she is going to [place] and she will start college and she is very excited about this and looking forward. She is not planning to come back here in maybe about one month. She is planning to find a psychologist and a physician over there. PHYSICAL EXAM: Vital signs: Normal. Not in acute distress. Well groomed, answer to question appropriately. Denies any hallucination, delusion. Got some suicidal thought, but no plan. PHQ-9 score is 8 today and CATHRYN-7 score today is 7. ASSESSMENT AND PLAN: [id number] female to follow up with major depression. 1. Discussed it. We will continue 50 mg of Zoloft. The patient will move to the different town right now. She will try to establish care over there with an M.D. and with a psychologist. Will call us immediately or should be seen immediately in the ER if worsening of the suicidal thought. Seems the patient understood, did agree with the plan. P / A tdy cc: documented in this encounter Plan of Treatment Not on filedocumented as of this encounter Visit Diagnoses Diagnosis Major depressive disorder, single episod e, moderate (HRC) - Primary Major depressive disorder, single episod e, moderate documented in this encounter
--- OUTSIDE RECORDS SUMMARY | 2022-03-10 15:59 | XMS_ITS | Encounter Summary ---
:1990 Author Organization [facility] Address [address] [place] [address] Care Team Providers Name Role Phone Unavailable Primary Care Provider Unavailable Encounter Details Date Type Department Care Team Description 10/08/2011 Orders Only [place] [facility] Dairy product intolerance; [address] Bloating; Rogelio Lloyd [place] [address] Hypercholesterolemia [phone] Social History Tobacco Use Types Packs/Day Years Used Date Smoking Tobacco: Never Smokeless Tobacco: Never Alcohol Use Standard Drinks/Week Comments No 0 (1 standard drink = 0.6 oz pure alcoho l) Sex Assigned at Date Recorded Not on file documented as of this encounter Plan of Treatment Not on filedocumented as of this encounter Procedures Procedure Name Priority Date/Time Associated Diagnosis Comme nts BASIC METABOLIC Routine 10/08/2011 11:07 Dairy product i ntolerance Results for this PANEL,FASTING AM BRAND EXECUTIVE Bloating procedure are in the results section. LIPID PANEL AND Routine 10/08/2011 11:07 Hypercholesterolemia Results for this DIRECT LDL(IF AM BRAND EXECUTIVE procedure are in NEEDED) the results section. VITAMIN D Routine 10/08/2011 11:07 Bloating Results for this 25-HYDROXY, TOTAL AM BRAND EXECUTIVE procedure are in the results section. COMPLETE BLOOD Waiting 10/08/2011 11:07 Dairy product i ntolerance Results for this COUNT-NO DIFF AM BRAND EXECUTIVE Bloating procedure are in the results section. ALT (SGPT) Routine 10/08/2011 11:07 Bloating Results for this AM BRAND EXECUTIVE procedure are i n the results section. AST Routine 10/08/2011 11:07 Bloating Results for this AM BRAND EXECUTIVE procedure are i n the results section. documented in this encounter Results BASIC METABOLIC PANEL,FASTING (10/08/2011 11:07 AM BRAND EXECUTIVE) Analysis Performed At Patho logist Time Signature [...] / Volume Laterality 10/08/2011 11:07 10/08/2011 AM BRAND EXECUTIVE 11:08 AM BRAND EXECUTIVE Paul Taveras MD LAB_1 Performing Organization Address [facility] Phon e Number [facility] [phone] [address] AST (10/08/2011 11:07 AM BRAND EXECUTIVE) athologist [facility] AST (SGOT) 22 0 - 55 U/L [facility] Specimen Anatomical Collection Method Collection Time Receive d Time (Source) Location / / Volume Laterality 10/08/2011 11:07 10/08/2011 AM BRAND EXECUTIVE 11:08 AM BRAND EXECUTIVE Paul Taveras MD LAB_1 Performing Organization Address [facility] Phon e Number [facility] [phone] [address] ALT (SGPT) (10/08/2011 11:07 AM BRAND EXECUTIVE) athologist Signature ALT (SGPT) 15 0 - 69 U/L [facility] Specimen Anatomical Collection Method Collection Time Receive d Time (Source) Location / / Volume Laterality 10/08/2011 11:07 10/08/2011 AM BRAND EXECUTIVE 11:08 AM BRAND EXECUTIVE Paul Taveras MD LAB_1 Performing Organization Address [facility] Phon e Number [facility] [employer] [phone] [facility] [address] [place] [phone] (ABNORMAL) LIPID PANEL AND DIRECT LDL(IF NEEDED) (10/08/2011 11:07 AM BRAND EXECUTIVE) [facility] Method Time Signature Cholesterol 371 (H) 0 - 199 [facility] mg/dl Triglyceride 168 (H) 0 - 149 [facility] mg/dl HDL 68 >40 mg/dl [facility] LDL, Calc. 269 (H) 0 - 129 [facility] mg/dl Non HDL Chol, 303 mg/dl [facility] Calc Comment: Non HDLC goal is 30 mg/dl above the patient's desired LDLC goal. Hours Fasting 12 hours [facility] Specimen Anatomical Collection Method Collection Time Receive d Time (Source) Location / / Volume Laterality 10/08/2011 11:07 10/08/2011 AM BRAND EXECUTIVE 11:08 AM BRAND EXECUTIVE Paul Taveras MD LAB_1 Performing Organization Address [facility] Phon e Number [facility] [employer] [phone] [address] (ABNORMAL) VITAMIN D 25-HYDROXY, TOTAL (V77.99) (10/08/2011 11:07 AM BRAND EXECUTIVE) [facility] Method Slick Signature Vitamin 21.3 (L) 30 - 80 [facility] D,25-OH, Tot ng/mL Comment: Deficiency: ??< 20 ng/mL Insufficiency: ??20-29 ng/mL Optimum Level: ??30-80 ng/mL Possible Toxicity: > 80 ng/mL Performed at [facility] Specimen Anatomical Collection Method Collection Time Receive d Time (Source) Location / / Volume Laterality 10/08/2011 11:07 10/08/2011 AM BRAND EXECUTIVE 11:09 AM BRAND EXECUTIVE Paul Taveras MD LAB_1 Performing Organization Address [facility] Phon e Number [facility] [employer] [phone] [address] (ABNORMAL) HEMOGRAM/PLTS (10/08/2011 11:07 AM BRAND EXECUTIVE) athologist Signature WBC 5.7 4.0 - 11.0 [facility] k/ul RBC 4.75 4.0 - 5.[address] [facility] M/ul Hemoglobin 13.1 12.0 - [facility] 16.0 g/dl HCT 40.0 36.0 - [facility] 46.0 % MCV 84.0 80 - 100 [facility] fl MCH 27.6 26 - 34 pg [facility] MCHC 32.8 32 - 36 [facility] g/dl RDW 11.2 (L) 11.5 - [facility] 14.5 % Platelets 326 150 - 450 [facility] k/ul Specimen Anatomical Collection Method Collection Time Receive d Time (Source) Location / / Volume Laterality 10/08/2011 11:07 10/08/2011 AM BRAND EXECUTIVE 11:08 AM BRAND EXECUTIVE Paul Taveras MD LAB_1 Performing Organization Address [facility] Phon e Number [facility] [employer] [phone] [phone] documented in this encounter Visit Diagnoses Diagnosis Dairy product intolerance Other specified intestinal malabsorption Bloating Flatulence, eructation, and gas pain Hypercholesterolemia Pure hypercholesterolemia documented in this encounter
--- OUTSIDE RECORDS SUMMARY | 2022-03-10 15:59 | XMS_ITS | Encounter Summary ---
:1990 [facility] Address [address] [place] [address] Care Team Providers Name Role Phone Unavailable Primary Care Provider Unavailable Reason for Visit Reason Comments JOINT PAIN knees and wrists. Labs Needed follow up on Vit D. Pt is du e for follow up cholest., but she is not fasting. Encounter Details Date Type Department Care Team Description 12/16/2011 Office Visit Elaine López, Carl hralgia (Primary Dx); Practice Abnormal laboratory test [address] [place]elio [place] [address] [place] [address] (Wo rk) Social History Tobacco Use Types Packs/Day Years Used Date Smoking Tobacco: Never Smokeless Tobacco: Never Alcohol Use Standard Drinks/Week Comments No 0 (1 standard drink = 0.6 oz pure alcoho l) Sex Assigned at Date Recorded Not on file documented as of this encounter Last Filed Vital Signs Vital Sign Reading Time Taken Comments Blood Pressure 127/73 12/16/2011 2:27 PM CDT Pulse 80 12/16/2011 2:27 PM CDT Temperature - - Respiratory Rate - - Oxygen Saturation - - Inhaled Oxygen Concentration - - Weight 60.8 kg (134 lb) 12/16/2011 2:27 PM CDT Height - - Body Mass Index 25.32 12/16/2011 1:35 PM CDT documented in this encounter Patient Instructions Patient InstructionsElaine Shultz, MD - 12/16/2011 2:44 PM CDT Images from the original note were not included. Arthritis: After Your Visit Your Care Instructions Arthritis, also called osteoarthritis, is a breakdown of the cartilage that cushions your joints. When the cartilage wears down, your bones rub against each other. This causes pain and stiffness. Many people have some arthritis as they age. Arthritis most often affects the joints of the spine, hands, hips, knees, or feet. You can take simple measures to protect your joints, ease your pain, and help you stay active. Follow-up care is a wolff part of your treatment and safety. Be sure to make and go to all appointments, and call your doctor if you are having problems. It???s also a good idea to know your test resultsand keep a list of the medicines you take. How can you care for yourself at home? ?? Stay at a healthy weight. Being overweight puts extra strain on your joints. ?? Talk to your doctor or physical therapist about exercises that will help ease joint pain. ?? Stretch. You may enjoy gentle forms of yoga to help keep your joints and muscles flexible. ?? Walk instead of jog. Other types of exercise that are less stressful on the joints include ridinga bicycle, swimming, or water exercise. ?? Lift weights. Strong muscles help reduce stress on your joints. Stronger thigh muscles, for example, take some of the stress off of the knees and hips. Learn the right way to lift weights so you do not make joint pain worse. ?? Take your medicines exactly as prescribed. Call your doctor if you think you are having a problemwith your medicine. ?? Take pain medicines exactly as directed. ?? If the doctor gave you a prescription medicine for pain, take it as prescribed. ?? If you are not taking a prescription pain medicine, ask your doctor if you can take an [id number] medicine. ?? Use a cane, crutch, walker, or another device if you need help to get around. These can help restyour joints. You also can use other things to make life easier, such as a higher toilet seat and padded handles on kitchen utensils. ?? Do not sit in low chairs, which can make it hard to get up. ?? Put heat or cold on your sore joints as needed. Use whichever helps you most. You also can take turns with hot and cold packs. ?? Apply heat 2 or 3 times a day for 20 to 30 minutes--using a heating pad, hot shower, or hot pack--to relieve pain and stiffness. ?? Put ice or a cold pack on your sore joint for 10 to 20 minutes at a time. Put a thin cloth between the ice and your skin. ?? Your doctor may suggest you try the supplements glucosamine and chondroitin. They are part of what makes up normal cartilage. Tell your doctor if you have diabetes, allergies to shellfish, or if youtake warfarin (Coumadin). When should you call for help? Call your doctor now or seek immediate medical care if: ?? You have sudden swelling, warmth, or pain in any joint. ?? You have joint pain and a fever or rash. ?? You have such bad pain that you cannot use a joint. Watch closely for changes in your health, and be sure to contact your doctor if: ?? You have mild joint symptoms that continue even with more than 6 weeks of care at home. ?? You have stomach pain or other problems with your medicine. Where can you learn more? Go to [employer] and enter Z807 in the search box. ?? [id number] [employer]. Content Version: 9.2.016345; Last Revised: November 10, 2010 Patellofemoral Pain Syndrome: After Your Visit Your Care Instructions Patellofemoral pain syndrome is pain in the front of the knee caused by overuse, weak thigh muscles (quadriceps), or a problem with the way the kneecap moves. Extra weight may also cause this syndrome.The patella is the kneecap, and the femur is the thighbone. Some people may have pain in the front of the knee from a condition called chondromalacia, in which the underside of the knee cartilage wearsdown and frays. Cartilage is a rubbery tissue that cushions joints. In some cases, the kneecap does not move, or track, in a normal way. You may have knee pain when yourun, walk down hills or steps, or do another activity. Sitting for a long time also can cause knee pain. Your knee pain may get better with medicines for pain and swelling and exercises to make your quadriceps stronger. Losing weight, if you need to, may also help with pain. Follow-up care is a wolff part of your treatment and safety. Be sure to make and go to all appointments, and call your doctor if you are having problems. It???s also a good idea to know your test resultsand keep a list of the medicines you take. How can you care for yourself at home? ?? Take anti-inflammatory medicines to reduce pain and swelling. These include ibuprofen (Advil, Motrin) and naproxen (Aleve). Read and follow all instructions on the label. ?? Rest and protect your knee. Take a break from activities that cause pain, such as long periods ofsitting or kneeling. ?? Put ice or a cold pack on your knee for 10 to 20 minutes after activity. Put a thin cloth betweenthe ice and your skin. ?? If your doctor recommends an elastic bandage, sleeve, or other type of support for your knee, wear it as directed. ?? If your knee is not swollen, you can put moist heat, a heating pad, or a warm cloth on your knee.After several days of rest, you can begin gentle exercise of your knee. ?? Reach and stay at a healthy weight. Being overweight puts stress on your knees. ?? Wear athletic shoes that offer good support, especially if you run. ?? Use shoe inserts, or orthotics, if they help reduce your knee pain. Many drugstores and shoe stores sell them. ?? See a physical therapist to learn more exercises and stretches to make your legs stronger. When should you call for help? Watch closely for changes in your health, and be sure to contact your doctor if: ?? Your knee pain does not get better or gets worse. Where can you learn more? Go to [employer] and enter U786 in the search box. ?? [id number] [employer]. Content Version: 9.2.523840; Last Revised: May 08, 2011 documented in this encounter Progress Notes Elaine Shultz MD - 12/16/2011 3:07 PM CDT This office note has been dictated. Elaine Shultz MD Elaine Shultz MD - 12/16/2011 12:00 AM CDT DATE OF SERVICE: 12/16/2011 CHIEF COMPLAINT: This is a 21-year-old female present in the clinic today with the main concern of joint pain. HISTORY OF THE PRESENT PROBLEM: This is a generally a pretty healthy female who states that in the last couple of months she has intermittent pain involving her both knees and both wrist area. Usually,it is aggravated by physical activity. The patient has had a lot of injuries in the past, she plays hockey. Denied any bone damage in the past. No swelling. No skin abnormalities. No morning stiffness.No fevers. No chills. No personal or family history of arthritis. The patient did not use any treatment for it. Denied any other symptoms. Generally, feeling well. Also, the patient has been diagnosed with low vitamin D level back in September and she started supplements with 2000 of vitamin D daily. Overall feeling well. PHYSICAL EXAMINATION: Vital Signs: Blood pressure 127/73, heart rate 80. General: Not in acute distress. Lungs: Clear bilaterally. Heart: Regular rhythm. Abdomen: Soft, nontender. No hepatosplenomegaly. Extremities: Exam of the lower extremities does not reveal any abnormalities. Exam of both wrists and both knees is unremarkable. Rest of the joint exam unremarkable. Skin Exam: Unremarkable too. ASSESSMENT AND PLAN: 21-year-old female with arthralgia, decrease of vitamin D level. 1. Arthralgia. Discussed about the differential diagnosis. To rule out systemic disease, recommend to check CBC, MELISSA, RF, C-reactive protein and sedimentation rate. Depending on what kind of results weget, we will contact the patient about further recommendation. May consider starting physical therapy and also ice, light activity. Information about patellofemoral syndrome was given to the patient. More likely, her pain in the knee is related to a femoral problem. Information about exercise was given too. Definitely, if worsening or new symptoms, should come back for reevaluation otherwise will contact us to get test results. 2. Regarding decrease of the vitamin D level, I think it is to early to recheck. Recommend to recheck around 12 weeks after the patient started to take the supplement. Agreed with the plan. Elaine Shultz MD GLK:kda Dictated: 12/16/2011 15:07:10 Transcribed: 12/17/2011 09:43:25 Job: [id number] Doc: [id number] cc: documented in this encounter Plan of Treatment Not on filedocumented as of this encounter Results (ABNORMAL) ESR (12/16/2011 2:57 PM CDT) P athologist Signature ESR 28 (H) 0 - 20 [facility] mm/hr Specimen Anatomical Collection Method Collection Time Receive d Time (Source) Location / / Volume Laterality 12/16/2011 2:57 PM 2 2:59 CDT PM CDT Elaine Shultz MD LAB_1 Performing Organization Address [facility] Phon e Number [facility] [employer] [phone] [address] (ABNORMAL) C-REACTIVE PROTEIN (12/16/2011 2:57 PM CDT) [facility] gist Method Time Signature C-Reactive 1.5 (H) 0.0 - 0.9 [facility] Protein mg/dl Comment: Note: results are expressed in mg/dL. Specimen Anatomical Collection Method Collection Time Receive d Time (Source) Location / / Volume Laterality 12/16/2011 2:57 PM 2 2:59 CDT PM CDT Elaine Shultz MD LAB_1 Performing Organization Address [facility] Phon e Number [facility] [employer] [phone] [phone] RHEUMATOID FACTOR, QUANT (12/16/2011 2:57 PM CDT) P athologist Signature Quant. Rheum. <9 0 - 11 [facility] Factor IU/ml Specimen Anatomical Collection Method Collection Time Receive d Time (Source) Location / / Volume Laterality 12/16/2011 2:57 PM 2 2:59 CDT PM CDT Elaine Shultz MD LAB_1 Performing Organization Address [facility] Phon e Number [facility] [phone] [phone] (ABNORMAL) MELISSA SCREEN (12/16/2011 2:57 PM CDT) [facility] gist Method Time Signature MELISSA Screen Positive NEG [facility] (A) Comment: This is a test that requires interpretat ion by your provider and does not necessarily indicate that you have a specific disease. Specimen Anatomical Collection Method Collection Time Receive d Time (Source) Location / / Volume Laterality 12/16/2011 2:57 PM 2 2:59 CDT PM CDT Elaine Shultz MD LAB_1 Performing Organization Address [facility] Phon e Number [facility] [phone] [address] (ABNORMAL) HEMOGRAM/PLTS (12/16/2011 2:57 PM CDT) athologist Signature WBC 5.0 4.0 - 11.0 [facility] k/ul RBC 4.20 4.0 - 5.2 [facility] M/ul Hemoglobin 11.7 (L) 12.0 - [facility] 16.0 g/dl HCT 35.7 (L) 36.0 - [facility] 46.0 % MCV 85.0 80 - 100 [facility] fl MCH 27.9 26 - 34 pg [facility] MCHC 32.8 32 - 36 [facility] g/dl RDW 12.7 11.5 - [facility] 14.5 % Platelets 285 150 - 450 [facility] k/ul Specimen Anatomical Collection Method Collection Time Receive d Time (Source) Location / / Volume Laterality 12/16/2011 2:57 PM 2 2:59 CDT PM CDT Elaine Shultz MD LAB_1 Performing Organization Address [facility] Phon e Number [facility] [phone] [address] VITAMIN D 25-HYDROXY, TOTAL (V77.99) (12/16/2011 2:57 PM CDT) athologist Signature Vitamin 31.3 30 - 80 [facility] D,25-OH, Tot ng/mL Comment: Deficiency: ??< 20 ng/mL Insufficiency: ??20-29 ng/mL Optimum Level: ??30-80 ng/mL Possible Toxicity: > 80 ng/mL Performed at [facility] Specimen Anatomical Collection Method Collection Time Receive d Time (Source) Location / / Volume Laterality 12/16/2011 2:57 PM 2 2:58 CDT PM CDT Elaine Shultz MD LAB_1 Performing Organization Address [facility] Phon e Number [facility] [employer] [phone] [address] documented in this encounter Visit Diagnoses Diagnosis Arthralgia - Primary Pain in joint, site unspecified Abnormal laboratory test Other abnormal clinical finding documented in this encounter
--- OUTSIDE RECORDS SUMMARY | 2022-03-10 15:59 | XMS_ITS | Encounter Summary ---
:1990 Author Organization [facility] Address [address] [facility] [place] [address] Care Team Providers Name Role Phone Unassigned, Provider Primary Care Provider Unavailable Reason for Visit Reason Comments Follow-up, NOS Concussion on 07/10/06 at hoc [employer] game, still BENDER, sensitive to sound and light Encounter Details Date Type Department Care Team Description 07/16/2006 Office Visit Rogelio Lloyd Family Alex Carrillo, Head Injury (Primary Practice MD Dx) [address] [place], [place] [address] [address] [place], [place] [phone] [id number] Social History Tobacco Use Types Packs/Day Years Used Date Smoking Tobacco: Never Alcohol Use Standard Drinks/Week Comments Not Asked 0 (1 standard drink = 0.6 oz pure alcoho l) Sex Assigned at Date Recorded Not on file documented as of this encounter Last Filed Vital Signs Vital Sign Reading Time Taken Comments Blood Pressure 96/60 07/16/2006 9:20 AM J[employer]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 She was knocked down and her helmuted head snapped back andstruck the ice on the occipital Area. She was not knocked unconscious but had immediate bad headache, and she may have some amnesia for events immediately following the injury. Since then she has not had nausea but continues to have a headache and light and sound sensitivity. No prior head injuries atall, and no history of meningitis or other Brain traumas or inflammation. OBJECTIVE: BP 96/60 Wt 102 lbs (46.267 kg) Alert awake and oriented, responds briskly and appropriately to questions follows all commands/requests without hesitaition. Cranil nn II-XII wnl including visual velez by confrontation Motor and sensory exams normal Romberg, tandem gait normal. TMS normal no blood behind drum ASSESSMENT: mild concussion, post-tramatic headache PLAN: May Do dry land conditioning , skating drills and other drills but avoid activities with risk of contact ie games and scrimmages until headache gone or until 2 weeks post injury. Letter written May take ibuprofen 400 mg po QID. Alex Carrillo MD OR WEB DEVELOPER documented in this encounter Plan of Treatment Not on filedocumented as of this encounter Visit Diagnoses Diagnosis Head injury - Primary Head injury, unspecified documented in this encounter Care Teams Grave Cleaner Relationship Specialty Start Date End Date Unassigned, Provider PCP - General 05/05/00 04/24/[address] [place] [id number] documented as of this encounter
--- OUTSIDE RECORDS SUMMARY | 2022-03-10 15:59 | XMS_ITS | Encounter Summary ---
:1990 Author Organization [facility] Address [address] [place] [address] Care Team Providers Name Role Phone Unavailable Primary Care Provider Unavailable Encounter Details Date Type Department Care Team Description 12/16/2011 Orders Only [place] [facility] [facility] Abnormal laboratory test; [address] [place] [address] Social History Tobacco Use Types Packs/Day Years Used Date Smoking Tobacco: Never Smokeless Tobacco: Never Alcohol Use Standard Drinks/Week Comments No 0 (1 standard drink = 0.6 oz pure alcoho l) Sex Assigned at Date Recorded Not on file documented as of this encounter Progress Notes Elaine Shultz MD - 12/21/2011 10:26 AM CDT Quick Note: Mildly abnormal labs,recommended Rheumatology consult and supplement with IRON 1T DAILY,RECHECK at 12 week. Elaine Shultz MD documented in this encounter Plan of Treatment Not on filedocumented as of this encounter Procedures Procedure Name Priority Date/Time Associated Comments Diagnosis VITAMIN D Routine 12/16/2011 2:57 PM Abnormal laboratory Re sults for this 25-HYDROXY, TOTAL CDT test procedure are in the results section. COMPLETE BLOOD Routine 12/16/2011 2:57 PM Arthralgia Results for this COUNT-NO DIFF CDT procedure are in the results section. RHEUMATOID FACTOR, Routine 12/16/2011 2:57 PM Arthralgia Res ults for this QUANT CDT procedure are i n the results section. C-REACTIVE PROTEIN Routine 12/16/2011 2:57 PM Arthralgia Res ults for this CDT procedure are i n the results section. MELISSA, QUANT (TITER) Routine 12/16/2011 2:57 PM Res ults for this CDT procedure are i n the results section. MELISSA SCREEN Routine 12/16/2011 2:57 PM Arthralgia Results f or this CDT procedure are i n the results section. ESR Routine 12/16/2011 2:57 PM Arthralgia Results f or this CDT procedure are i n the results section. documented in this encounter Results (ABNORMAL) MELISSA, QUANT (TITER) (12/16/2011 2:57 PM CDT) athologist Signature MELISSA Titer 1:160 (A) L160 [facility] Comment: Speckled Pattern This is a test that requires interpretat ion by your provider and does not necessarily indicate that you have a specific disease. Specimen Anatomical Collection Method Collection Time Receive d Time (Source) Location / / Volume Laterality 12/16/2011 2:57 PM 2 2:59 CDT PM CDT Elaine Shultz MD LAB_1 Performing Organization Address City/[facility] Phon e Number [facility] [employer] [phone] [phone] (ABNORMAL) ESR (12/16/2011 2:57 PM CDT) athologist Signature ESR 28 (H) 0 - 20 [facility] mm/hr Specimen Anatomical Collection Method Collection Time Receive d Time (Source) Location / / Volume Laterality 12/16/2011 2:57 PM 2 2:59 CDT PM CDT Elaine Shultz MD LAB_1 Performing Organization Address [facility] Phon e Number [facility] [employer] [phone] [facility] [address] [place] [phone] (ABNORMAL) C-REACTIVE PROTEIN (12/16/2011 2:57 PM CDT) [facility] Method Time Signature C-Reactive 1.5 (H) 0.0 - 0.9 [facility] Protein mg/dl Comment: Note: results are expressed in mg/dL. Specimen Anatomical Collection Method Collection Time Receive d Time (Source) Location / / Volume Laterality 12/16/2011 2:57 PM 2 2:59 CDT PM CDT Elaine Shultz MD LAB_1 Performing Organization Address [facility] Phon e Number [facility] [employer] [phone] [phone] RHEUMATOID FACTOR, QUANT (12/16/2011 2:57 PM CDT) athologist Signature Quant. Rheum. <9 0 - 11 [facility] Factor IU/ml Specimen Anatomical Collection Method Collection Time Receive d Time (Source) Location / / Volume Laterality 12/16/2011 2:57 PM 2 2:59 CDT PM CDT Elaine Shultz MD LAB_1 Performing Organization Address [facility] Phon e Number [facility] [employer] [phone] [phone] (ABNORMAL) MELISSA SCREEN (12/16/2011 2:57 PM CDT) [facility] Method Time Signature MELISSA Screen Positive [facility]G [facility] (A) Comment: This is a test that requires interpretat ion by your provider and does not necessarily indicate that you have a specific disease. Specimen Anatomical Collection Method Collection Time Receive d Time (Source) Location / / Volume Laterality 12/16/2011 2:57 PM 2 2:59 CDT PM CDT Elaine Shultz MD LAB_1 Performing Organization Address [facility] Phon e Number [facility] [employer] [phone] [phone] (ABNORMAL) HEMOGRAM/PLTS (12/16/2011 2:57 PM CDT) athologist Signature WBC 5.0 4.0 - 11.0 [facility] k/ul RBC 4.20 4.0 - 5.2 [facility] M/ul Hemoglobin 11.7 (L) 12.0 - [facility] 16.0 g/dl HCT 35.7 (L) 36.0 - [facility] 46.0 % MCV 85.0 80 - 100 [facility] fl MCH 27.9 26 - 34 pg [facility] MCHC 32.8 32 - 36 [facility] g/dl RDW 12.7 11.5 - [facility] 14.5 % Platelets 285 150 - 450 [facility] k/ul Specimen Anatomical Collection Method Collection Time Receive d Time (Source) Location / / Volume Laterality 12/16/2011 2:57 PM 2 2:59 CDT PM CDT Elaine Shultz MD LAB_1 Performing Organization Address [facility] Phon e Number [facility] [phone] [address] VITAMIN D 25-HYDROXY, TOTAL (V77.99) (12/16/2011 2:57 PM CDT) athologist Signature Vitamin 31.3 30 - 80 [facility] D,25-OH, Tot ng/mL Comment: Deficiency: ??< 20 ng/mL Insufficiency: ??20-29 ng/mL Optimum Level: ??30-80 ng/mL Possible Toxicity: > 80 ng/mL Performed at [facility] Specimen Anatomical Collection Method Collection Time Receive d Time (Source) Location / / Volume Laterality 12/16/2011 2:57 PM 2 2:58 CDT PM CDT Elaine Shultz MD LAB_1 Performing Organization Address [facility] Phon e Number [employer] [phone] [address] documented in this encounter Visit Diagnoses Diagnosis Abnormal laboratory test Other abnormal clinical finding Arthralgia Pain in joint, site unspecified documented in this encounter
--- OUTSIDE RECORDS SUMMARY | 2022-03-10 15:59 | XMS_ITS | Encounter Summary ---
:1990 Author Organization [facility] Address [address] [place] [address] Care Team Providers Name Role Phone Justina Santiago MD Primary Care Provider Unavailable Encounter Details Date Type Department Care Team Description 04/20/2009 Emergency [facility], [facility] Social History Tobacco Use Types Packs/Day Years Used Date Smoking Tobacco: Never Alcohol Use Standard Drinks/Week Comments Not Asked 0 (1 standard drink = 0.6 oz pure alcoho l) Sex Assigned at Date Recorded Not on file documented as of this encounter Progress Notes Interface, In Chrtscr And Scan - 05/02/2009 8:57 AM CDT documented in this encounter Plan of Treatment Not on filedocumented as of this encounter Visit Diagnoses Not on filedocumented in this encounter Care Teams Pearler Relationship Specialty Start Date End Date Justina Santiago MD PCP - General 04/25/07 02/03/10 documented as of this encounter
--- OUTSIDE RECORDS SUMMARY | 2022-03-10 15:59 | XMS_ITS | Encounter Summary ---
:1990 [facility] Address [address] [place] [address] Care Team Providers Name Role Phone Justina Santiago MD Primary Care Provider Unavailable Reason for Visit Reason Comments CONSULT birthcontrol consult. Encounter Details Date Type Department Care Team Description 05/16/2009 Office Visit Justina Pacheco, Contr ol (Primary Dx); Pediatrics Need for Prophylactic Vaccin ation and Inoculation Against Varicella; [address] Screening [place] [address] Social History Tobacco Use Types Packs/Day Years Used Date Smoking Tobacco: Never Alcohol Use Standard Drinks/Week Comments Not Asked 0 (1 standard drink = 0.6 oz pure alcoho l) Sex Assigned at Date Recorded Not on file documented as of this encounter Last Filed Vital Signs Vital Sign Reading Time Taken Comments Blood Pressure 114/58 05/16/2009 3:21 PM CDT Pulse - - Temperature - - Respiratory Rate - - Oxygen Saturation - - Inhaled Oxygen Concentration - - Weight 54 kg (119 lb) 05/16/2009 3:21 PM CDT Height - - Body Mass Index - - documented in this encounter Progress Notes Justina Santiago - 05/20/2009 4:26 PM CDT Juliette is here to discuss starting control pills. She is sexually active with a single partner. Her mother is aware that she is sexually active and agrees with her plan to start OCPs. She has consistently used condoms. No symptoms of STD. She is generally very healthy. She denies use of tobacco.LMP 3 weeks ago, normal. Alert teen in NAD HEENT: Eyes: PERRL, EOMI. conjunctivae clear. Nose: clear. Oropharynx: posterior pharynx clear, tonsils not enlarged, no exudate. mmm. Neck: supple without adenopathy. Lungs: CTA Heart: RRR without murmur Abd: soft without hepatosplenomegaly or mass IMP: 18 year old who desires oral contraceptives PLAN: Begin Alealan. Discussed use of OCPs UPT and urine chlamydia negative Follow up in 1 year, sooner prn. documented in this encounter Nursing Notes 05/16/2009 3:15 PM CDT >> Jessika Astudillo CMA [facility] May 16, 2009 3:[address] Santiago has given the verbal ok to give immunizations to this patient prior to immunizations beinggiven. Physician discussed risks, benefits and side effects of the immunizations given today. Ordershave been entered for documentation and billing purposes. Vaccine Information Sheets were handed to patient. Please see immunization documentation for additional information. Jessika Astudillo CMA documented in this encounter Plan of Treatment Not on filedocumented as of this encounter Procedures Procedure Name Priority Date/Time Associated Diagnosis Comme nts TEST Routine 05/16/2009 4:05 PM Screening Results for this (URINE) CDT procedure are i n the results section. CHLAMYDIA (14 YEARS Routine 05/16/2009 4:05 PM Screening Re sults for this AND OLDER) CDT procedure are i n the results section. documented in this encounter Results CHLAMYDIA (05/16/2009 4:05 PM CDT) P athologist Signature Chlamydia Negative NEG [facility] Comment: Test Performed by Precision Thread Grinder Operator Mediated Amplification Source Urine [facility] Specimen Anatomical Collection Method Collection Time Receive d Time (Source) Location / / Volume Laterality 05/16/2009 4:05 PM 9 4:09 CDT PM CDT Justina Santiago MD LAB_1 Performing Organization Address City/State/ZIP Code Phon e Number [facility] [employer] [facility] [phone] [phone] TEST (URINE) (05/16/2009 4:05 PM CDT) Component Value Ref Test Analysis Performed At [facility] Range Method Time Signature HCG, Urine Negative [facility] Negative = <25 mIU/ml If is suspected, suggest repeat in 48-72 hours or confirm results with a quantitative hCG test. Specimen Anatomical Collection Method Collection Time Receive d Time (Source) Location / / Volume Laterality Urine specimen 05/16/2009 4:05 PM 009 4:09 (specimen) CDT PM CDT Justina Santiago MD LAB_1 Performing Organization Address City/State/ZIP Code Phon e Number [facility] [phone] [phone] documented in this encounter Visit Diagnoses Diagnosis control - Primary Unspecified contraceptive management Need for prophylactic vaccination and in oculation against varicella Screening Screening for unspecified condition documented in this encounter Care Teams Tool Grinder Operator Relationship Specialty Start Date End Date Justina Santiago MD PCP - General 04/25/07 02/03/10 documented as of this encounter
--- OUTSIDE RECORDS SUMMARY | 2022-03-10 15:59 | XMS_ITS | Encounter Summary ---
:1990 [facility] Address [address] [place] [address] Care Team Providers Name Role Phone Unavailable Primary Care Provider Unavailable Reason for Visit Reason Comments Refill Encounter Details Date Type Department Care Team Description 10/15/2012 Refill [facility] Marysol Vitale APRN, Refill Obstetrics and Gynec ology [facility] [address] [place], [place] [address] Social History Tobacco Use Types Packs/Day Years Used Date Smoking Tobacco: Never Smokeless Tobacco: Never Alcohol Use Standard Drinks/Week Comments No 0 (1 standard drink = 0.6 oz pure alcoho l) Sex Assigned at Date Recorded Not on file documented as of this encounter Nursing Notes Renetta Braden MD - 10/15/2012 8:03 AM CDT 6 months supply sent. Renetta Braden MD documented in this encounter Plan of Treatment Not on filedocumented as of this encounter Visit Diagnoses Not on filedocumented in this encounter
--- OUTSIDE RECORDS SUMMARY | 2022-03-10 16:00 | XMS_ITS | Encounter Summary ---
:1990 Author Organization [facility] Address [address] [place] [address] Care Team Providers Name Role Phone Unassigned, Provider Primary Care Provider Unavailable Reason for Visit Reason Comments WELL CHILD EXAM Encounter Details Date Type Department Care Team Description 03/12/2004 Office Visit Rogelio Lloyd Pediatri Justina Rodriguez, ROUTINE CHILD HEALTH EXAM (P rimary Dx); [id number] Jani Gipson MD VACCINE [id number] ; Rogelio Lloyd [place] [address] VACCINE FOR TETANUS + DIPHTH ERIA [phone] Social History Tobacco Use Types Packs/Day Years Used Date Smoking Tobacco: Never Assessed Sex Assigned at Date Recorded Not on file documented as of this encounter Last Filed Vital Signs Vital Sign Reading Time Taken Comments Blood Pressure 100/60 03/12/2004 9:24 AM CDT Pulse 76 03/12/2004 9:24 AM CDT Temperature - - Respiratory Rate - - Oxygen Saturation - - Inhaled Oxygen Concentration - - Weight 36.4 kg (80 lb 3.2 oz) 03/12/2004 9:24 AM CDT Height 147.3 cm (4' 10) 03/12/2004 9:24 AM CDT Body Mass Index 16.76 03/12/2004 9:24 AM CDT Body Mass Index Percentile 23.36 % 03/12/2004 9:24 AM CD T Growth Chart: [facility] (Girls, 2-20 Years) documented in this encounter Patient Instructions Patient Kvoqydputzzg30/11/2004 9:00 AM CDT It has been a pleasure attending to your child's health maintenance needs today. documented in this encounter Progress Notes 03/12/2004 9:00 AM CDT S> Juilette Gaming is a 13 yr female who presents accompanied by her mother for routine care. History is obtained from mother. PARENTAL CONCERNS: absent Concerns about vision: None Concerns about hearing/speech: None ----- Patient's family history None on file Family history of visual abnormalities absent Family history of hearing disability or loss absent ----- HEALTH HISTORY Recent history of: Injury none Illness: none Surgery none Hospitalization: age 2 with dehydration Dental: Last dental visit within 6 months Brushes daily Cardiovascular Risk: none, family history of early cardiac (<50 for males, <65 for females), family history of high cholesterol: mother's family, mother's father of [place] age 42 Exercise: adequate} Recreation/Hobbies/TV: does not read daily Tobacco/Alcohol/Drugs: not asked Menstrual History (if applicable): not applicable Sexual Activity: not sexually active Self-Examination: Not discussed Current Living Situation: lives with both parents (nuclear family) Care After School: no adult supervision Environmental Risks: none. REQUIRED TESTING: Hemoglobin Prior Hgb: No results found for this basename: HGB Hemoglobin test required?: yes Tuberculosis Screening: High Risk factors: No risk factors Tb Test Required?: No Kidney/Bladder Screening: (If Leuk positive/negative, urinalysis was done on this date: No results found for this basename: ULEUK Urinalysis required? No Chlamydia Screening: Required: Deferred Domestic Violence Screenin. In the past year the patient has been hit, kicked, pushed or otherwise hurt or mistreated by someone important to her. (NO) 2. In the past year, has the patient has been insulted, threatened, felt afraid or humiliated by someone important to her. (NO) 3. If yes, how does this affect the child? 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 No problems identified. Eye: System reviewed. No problems identified Ears: System reviewed. No problems identified Nose: System reviewed. No concerns. Throat: System reviewed. No concerns. Skin: System reviewed. No concerns. C-V: System reviewed. No concerns., normal activity level Respiratory: System reviewed. No problems identified. GI: system reviewed. No problems identified. : system reviewed. No problems identified. Neuromuscular: System reviewed. No concerns. Miscellaneous: The rest of the complete review of systems was negative. ----- O> BP 100/60 Pulse 76 Ht 4' 10 (1.47m) Wt 80 lbs 3 oz (36.4kg) GENERAL: well-developed, well-nourished child who behaves age appropriately. SKIN: supple, free of lesions HEENT: Head: normocephalic Eyes: no abnormalities detected Ears: external canals and tympanic membranes free of lesions or abnormalities Nose: Nostrils patent without discharge, septum midline Mouth: mucosa without lesions, no dental abnormalities found Pharynx: posterior palate and posterior pharyngeal wall normal, tonsils present, not enlarged, no exudate, uvula normal NECK: normal, supple and thyroid normal size, non-tender, without nodularity CHEST: symmetric, no deformities LUNGS: clear to auscultation, no wheezes, no rales or ronchi CV: regular rate and rhythm, normal S1 and S2 without murmur or click ABDOMEN: soft, without masses, distention or organomegaly, bowel sounds intact : genitals not examined PELVIC EXAM: not performed or not indicated. MS: full range of motion, all joints no spinal abnormalities normal gait scoliosis screening passed NEURO: speech normal, mental status intact, gait normal, muscle tone normal VISION: Objective exam completed. No problems found. Visual acuity screening: performed and documented in nurse's note., Right 20/20-2 and Left 20/20-1 HEARING:Subective assessment. No problems found Rcik Breast Stage 3: breast mound enlarged; increased palpable glandular tissue A> Healthy Adolescent family history of high cholesterol and early [place] P> Per orders. will check cholesterol and hb today Counseling: Social: increased responsibility Parenting: positive input from family Nutrition: age specific nutritional needs , nutritious snacks and calcium intake Play and communication: organized sports/regular exercise Health: adequate rest at night and exercise Dental: Reinforced need for regular brushing and flossing. Safety: seat belts Follow-up: Next well-child visit in 2 years documented in this encounter Plan of Treatment Not on filedocumented as of this encounter Procedures Procedure Name Priority Date/Time Associated Diagnosis Comme nts HEMOGLOBIN, BLOOD Routine 03/12/2004 10:10 AM Routine Child He alth Results for this CDT Exam procedure are i n the results section. CHOLESTEROL, TOTAL Routine 03/12/2004 10:10 AM Routine Child H ealth Results for this AND HDL CDT Exam procedure are i n the results section. documented in this encounter Results HEMOGLOBIN, BLOOD (03/12/2004 10:10 AM CDT) athologist Signature Hemoglobin 13.4 12.0 - 16.0 [facility] g/dl Specimen Anatomical Collection Method Collection Time Receive d Time (Source) Location / / Volume Laterality 03/12/2004 10:10 03/12/2004 AM CDT 10:11 AM CDT Justina Santiago MD LAB_1 Performing Organization Address City/[facility]/ZIP [facility] Phon e Number [facility] [phone] [facility] [address] [place] [phone] (ABNORMAL) CHOLESTEROL, TOTAL AND HDL (03/12/2004 10:10 AM CDT) athologist Signature Cholesterol 222 (H) <200 mg/dl [facility] HDL 51 >35 mg/dl [facility] Specimen Anatomical Collection Method Collection Time Receive d Time (Source) Location / / Volume Laterality 03/12/2004 10:10 03/12/2004 AM CDT 10:11 AM CDT Justina Santiago MD LAB_1 Performing Organization Address [facility] Phon e Number [facility] [phone] [phone] documented in this encounter Visit Diagnoses Diagnosis Routine or child health check - P rimary Need for prophylactic vaccination with m [id number] (MMR) vaccine Need for Td vaccine Need for prophylactic vaccination with t etanus-diphtheria (Td) documented in this encounter Care Teams Product Evangelist Relationship Specialty Start Date End Date Unassigned, Provider PCP - General 05/05/00 04/24/[address] [place] [id number] documented as of this encounter
--- OUTSIDE RECORDS SUMMARY | 2022-03-10 16:00 | XMS_ITS | Encounter Summary ---
:1990 [facility] Address [address] [place] [address] Care Team Providers Name Role Phone Unassigned, Provider Primary Care Provider Unavailable Reason for Visit Reason Comments Sore Throat for a couple days, has heada jose and stomach ache for the last 2-3 days, no fever BACK PAIN, LOW has had lower back pain off and on for the last 2 months Encounter Details Date Type Department Care Team Description 10/31/2004 Office Visit Lyle Loredo, ACUTE URI NOS (Primary Dx); Practice MD ACUTE PHARYNGITIS(SORE THROAT); [address] [place] [address] [place], [place] [phone] [id number] Social History Tobacco Use Types Packs/Day Years Used Date Smoking Tobacco: Never Alcohol Use Standard Drinks/Week Comments Not Asked 0 (1 standard drink = 0.6 oz pure alcoho l) Sex Assigned at Date Recorded Not on file documented as of this encounter Last Filed Vital Signs Vital Sign Reading Time Taken Comments Blood Pressure - - Pulse - - Temperature 36.1 ??C (97 ??F) 10/31/2004 1:35 PM CUPOLA MELTING SUPERVISOR Respiratory Rate - - Oxygen Saturation - - Inhaled Oxygen Concentration - - Weight 40.8 kg (90 lb) 10/31/2004 1:35 PM CUPOLA MELTING SUPERVISOR Height - - Body Mass Index - - documented in this encounter Progress Notes 10/31/2004 1:20 PM CUPOLA MELTING SUPERVISOR SUBJECTIVE: Juliette Gaming is a 14 yr old female who presents with concerns about upper respiratory infection symptoms. Symptoms include congestion, sore throat and headache and stomach ache. Onset 3 day(s), unchanged since that time. currently menstruating. PMH, social history, current medications and allergies are reviewed. OBJECTIVE: Temp (Src) 97 (Oral) Wt 90 lbs (40.8kg) General appearance: stated age, healthy, alert, in no distress Ears: R TM - WNL: pearly, giang with good light reflex, L TM - WNL: pearly, giang with good light reflex Nose: normal Oropharynx: normal Neck: supple and no adenopathy Lungs: clear to auscultation without any rales or rhonchi bilaterally Heart: regular rate and rhythm back exam is neg for abnls incl neg scoliosis screen rst neg ASSESSMENT: Acute URI back pain PLAN: Discussed with patient etiology of URI or common cold is most likely viral and doesn't require antibiotics. They are advised that symptoms of an uncomplicated URI can last up to 7-10 days. I recommended: 1) Symptomatic treatment with fluids, vaporizer, acetaminophen or ibuprofen for pain/fever if tolerated. 2) OTC cold medications (if tolerated). 3) Recheck as needed for persistence, worsening, appearance of new symptoms within the next week. 4) Discontinue smoking (if applicable). 5) Frequent hand washing. Patient/family verbalizes understanding of plan. Lyle Orozco MD documented in this encounter Nursing Notes 10/31/2004 1:20 PM CST >> LYLE OROZCO 10/31/2004 1:55 pm if rst is neg can go Lyle Orozco MD documented in this encounter Plan of Treatment Not on filedocumented as of this encounter Procedures Procedure Name Priority Date/Time Associated Diagnosis Comme nts STREP GRP A, RAPID Waiting 10/31/2004 1:38 PM Acute Res ults for this SCREEN CUPOLA MELTING SUPERVISOR Pharyngitis(Sore procedure a re in Throat) the results section. documented in this encounter Results STREP GRP A, RAPID SCREEN (10/31/2004 1:38 PM CUPOLA MELTING SUPERVISOR) [facility] Method Time Signature Patient Home None [employer] Phone # Patient Work None [facility] # Grp A Rapid Negative [facility]G [facility] Screen Grp A Culture Negative [facility]G [facility] Final Specimen Anatomical Collection Method Collection Time Receive d Time (Source) Location / / Volume Laterality 10/31/2004 1:38 PM 5 1:39 CUPOLA MELTING SUPERVISOR PM CUPOLA MELTING SUPERVISOR Lyle Orozco MD LAB_1 Performing Organization Address City/State/ZIP Code Phon e Number [facility] [phone] [facility] [address] [phone] documented in this encounter Visit Diagnoses Diagnosis Acute upper respiratory infections of un specified site - Primary Acute pharyngitis Backache, unspecified documented in this encounter Care Teams Mediation Commissioner Relationship Specialty Start Date End Date Unassigned, Provider PCP - General 05/05/00 04/24/07 [address] [place] [address] documented as of this encounter
--- OUTSIDE RECORDS SUMMARY | 2022-03-10 16:00 | XMS_ITS | Encounter Summary ---
:1990 Author Organization [facility] Address [address] [place] [address] Care Team Providers Name Role Phone Unassigned, Provider Primary Care Provider Unavailable Reason for Visit Reason Onset Date Comments QUESTIONS, GENERAL 07/12/2006 Encounter Details Date Type Department Care Team Description 07/12/2006 Telephone Rogelio Lloyd Family Unknown, Phys ician QUESTIONS, field return repairer [address] [address] [facility] [place] [phone] (Wo rk) Social History Tobacco Use Types Packs/Day Years Used Date Smoking Tobacco: Never Alcohol Use Standard Drinks/Week Comments Not Asked 0 (1 standard drink = 0.6 oz pure alcoho l) Sex Assigned at Date Recorded Not on file documented as of this encounter Nursing Notes Chrissie Perez - 07/12/2006 4:49 PM CST Pt received head injury at hockey game on Sat.07/10/06. Not seen by anyone except by medical management trainer of hockey team. No loss of consciousness. No lump on head. Dull head ache that is controlled with OTC Ibuprofen. Some sensitivity to light. Juliette is out of hockey practice or games for 1 week. Discussed with Dad head injury guidelines per nurse guidelines and Dad denies any STAT symptoms. Discussed with Dad symptoms of worsening head injury and Dad voices understanding of these. Call or return to clinic prn if these symptoms worsen, fail to improve as anticipated, or if new symptoms develop. Chrissie Perez RN ETIC COUNSELOR Pebbles Ashton - 07/12/2006 3:50 PM CST Daughter was injured in a hockey game,Sat 07-10-06; she had grade 1 concussion. Has questions ?? ETIC COUNSELOR documented in this encounter Plan of Treatment Not on filedocumented as of this encounter Visit Diagnoses Not on filedocumented in this encounter Care Teams Forestry Technical Officer Relationship Specialty Start Date End Date Unassigned, Provider PCP - General 05/05/00 04/24/[address] [place] [address] documented as of this encounter
--- OUTSIDE RECORDS SUMMARY | 2022-03-10 16:00 | XMS_ITS | Encounter Summary ---
:1990 Author Organization [facility] Address [address], [place] [address] Care Team Providers Name Role Phone Unassigned, Provider Primary Care Provider Unavailable Reason for Visit Reason Comments CONSULT allergy Encounter Details Date Type Department Care Team Description 12/23/2004 Office Visit [facility] DEYANIRA Willis RHINITIS; [address] Michael Gilmore MD COUGH [place], [place] [address] Social History Tobacco Use Types Packs/Day Years Used Date Smoking Tobacco: Never Alcohol Use Standard Drinks/Week Comments Not Asked 0 (1 standard drink = 0.6 oz pure alcoho l) Sex Assigned at Date Recorded Not on file documented as of this encounter Last Filed Vital Signs Vital Sign Reading Time Taken Comments Blood Pressure 108/56 12/23/2004 2:19 PM CDT Pulse 84 12/23/2004 2:19 PM CDT Temperature - - Respiratory Rate - - Oxygen Saturation - - Inhaled Oxygen Concentration - - Weight 41.2 kg (90 lb 12.8 oz) 12/23/2004 2:19 PM CDT Height 151.1 cm (4' 11.5) 12/23/2004 2:19 PM CDT Body Mass Index 18.03 12/23/2004 2:19 PM CDT Body Mass Index Percentile 35.84 % 12/23/2004 2:19 PM CD T Growth Chart: [facility] (Girls, 2-20 Years) documented in this encounter Progress Notes 12/23/2004 2:30 PM CDT AUTHOR: MANDO WILLIS ALLERGY EVALUATION (NEW PATIENT) SUBJECTIVE: This 14 y/o, w/f, who was born in and has lived in [place], was apparently self- referred to our allergy clinic for the evaluation of her nasal problem. She is here with her mother today. Her history was obtained via her mother. The onset of her problem was about 5 years ago. From the beginning it has been perennial with spring exacerbation. Her main problem (chief complaint) is nasal congestion, which is accompanied by sarah-orbital pain. She denies itchy nose, sneezing and ocular symptoms such as itchy and watery eyes. She also complains of plugged ears. There seems to be no apparent precipitating factor for her problem. In the past Flonase was somewhat effective but it no longer worked. Sudafed and Tylenol work to some extent. She has been coughing with some SOB. Exercise and sometimes cold air and laughing trigger coughing.The problem is mild. R.O.S.: Constitutional; no fever, chills or weight loss. Eyes; no itchy or watery eyes. ENT; occasional plugging. GI; no nausea or vomiting. CV; no chest pain or cyanosis. ; no burning or frequency. M/S; no joint pain, redness or swelling. Integument; no itchy or dry skin. Neuro; no tremor or dizziness. Endo; no hot flashes or excessive sweating. No known drug allergy. No chronic illness such as diabetes mellitus or seizure disorder. No major operation. Family History: negative for hay fever, bronchial asthma and atopic dermatitis. Environment: The patient has lived in the present house apartment for 4 years. It is equipped with a forced air heating system and a central air conditioner. There is a carpet, feather pillows and a regular mattress in the bedroom. Animals: one dog. Her father also has dogs. She does not develop any immediate reaction on exposure to animals. Social History: There is no one who smokes in the house. OBJECTIVE: BP 108/56 Pulse 84 Ht 4' 11.5 (1.51m) Wt 90 lbs 13 oz (41.2kg) General Appearance; in no acute distress, alert Eyes; conjunctivae clear, LASHAUN ENT; nose showed slightly swollen nasal membranes with a small amount of clear discharge, throat noinjection or swelling, neck supple with no tenderness, mass or thyromegaly, ears TM intact with normal light reflection Lung; clear without wheezing, rales or rhonchi and with good breath sound Heart; S1 plus S2 without murmur Abdomen; flat, soft, no tenderness, no organomegaly Heme/Lymph; no lymphadenopathy in cervical area Skin; warm and well-perfused. Neuro; speech normal, mental status intact, muscle tone normal Psych; no sign of hyperactivity Allergy Skin Test: prick test; negative to all allergens applied with a positive histamine control. intradermal skin test; negative to dust mite(DF), dust mite(DP), mixed trees and mixed mold with a negative diluent control. ASSESSMENT: Problem 1. Chronic rhinitis. Her problem is non-allergic. Her history is not strongly suggestive ofallergic rhinitis and Today's skin test was negative. Drastic weather changes and other non-specificirritants may trigger her problem. Problem 2. Cough. Her history is suggestive of airway hyperresponsiveness. The problem is mild enough to require no medication at this time. PLAN: 1. Sudafed p.r.n. 2. Benadryl p.r.n. It is warned that conventional antihistamines may cause drowsiness. 3. Nasonex 2 sprays to each nostril once a day. 4. RTC p.r.n. or if coughing gets worse. Mando Willis MD 6:38 PM 12/23/2004 Mando Willis - 12/23/2004 12:00 AM CDT documented in this encounter Nursing Notes 12/23/2004 2:30 PM CDT >> ALISA THORNTON 12/23/2004 2:55 pm Allergy skin testing done Completed per physician's orders. Alisa Thornton, RN 2:55 PM 12/23/2004 >> SHIRLEY TURNER 12/23/2004 2:20 pm Juliette Gaming is here today for Allergy Department visit. Phone #: [phone]. Spirometry/Peakflow done-NO. No current outpatient prescriptions on file. Shirley Turner LPN, 2:19 PM, 12/23/2004 documented in this encounter Plan of Treatment Not on filedocumented as of this encounter Visit Diagnoses Diagnosis Chronic rhinitis Cough documented in this encounter Care Teams Therapeutic Specialist Relationship Specialty Start Date End Date Unassigned, Provider PCP - General 05/05/00 04/24/[address] [place] [address] documented as of this encounter
--- OUTSIDE RECORDS SUMMARY | 2022-03-10 16:00 | XMS_ITS | Encounter Summary ---
:1990 Author Organization [facility] Address [address] [place] [address] Care Team Providers Name Role Phone Unassigned, Provider Primary Care Provider Unavailable Encounter Details Date Type Department Care Team Description 05/10/2006 Correspondence [place] Justina Santiago, PHYSICAL EXAM/ [facility] [address] [place], [place] [address] Social History Tobacco Use Types Packs/Day Years Used Date Smoking Tobacco: Never Alcohol Use Standard Drinks/Week Comments Not Asked 0 (1 standard drink = 0.6 oz pure alcoho l) Sex Assigned at Date Recorded Not on file documented as of this encounter Progress Notes Justina Santiago - 05/10/2006 12:00 AM CDT documented in this encounter Plan of Treatment Not on filedocumented as of this encounter Visit Diagnoses Not on filedocumented in this encounter Care Teams Underwriting Technician Relationship Specialty Start Date End Date Unassigned, Provider PCP - General 05/05/00 04/24/07 [address] [place] [address] documented as of this encounter
--- OUTSIDE RECORDS SUMMARY | 2022-03-10 16:00 | XMS_ITS | Encounter Summary ---
:1990 Author Organization [facility] Address [address] [place] [address] Care Team Providers Name Role Phone Unassigned, Provider Primary Care Provider Unavailable Encounter Details Date Type Department Care Team Description 12/23/2004 Correspondence None Hp Viviana, Provider consent to release Social History Tobacco Use Types Packs/Day Years Used Date Smoking Tobacco: Never Alcohol Use Standard Drinks/Week Comments Not Asked 0 (1 standard drink = 0.6 oz pure alcoho l) Sex Assigned at Date Recorded Not on file documented as of this encounter Progress Notes Dax Michelle, Provider - 12/23/2004 12:00 AM CDT documented in this encounter Plan of Treatment Not on filedocumented as of this encounter Visit Diagnoses Not on filedocumented in this encounter Care Teams Environmental Research Scientist Relationship Specialty Start Date End Date Unassigned, Provider PCP - General 05/05/00 04/24/[address] [place] [address] documented as of this encounter
--- OUTSIDE RECORDS SUMMARY | 2022-03-10 16:00 | XMS_ITS | Encounter Summary ---
:1990 Author Organization [facility] Address [address] [place] [address] Care Team Providers Name Role Phone Unassigned, Provider Primary Care Provider Unavailable Reason for Visit Reason Comments FEVER ABDOMINAL PAIN Encounter Details Date Type Department Care Team Description 09/17/2000 Telephone Careline Ayleen Barker, FEVER; ABDOMINAL PAIN [address] Leanne Pérez, RN [place], [place] [address] [facility] [phone] [place] [address] Social History Tobacco Use Types Packs/Day Years Used Date Smoking Tobacco: Never Assessed Sex Assigned at Date Recorded Not on file documented as of this encounter Nursing Notes 09/17/2000 11:59 PM TRANSMISSION AND COORDINATION ENGINEER >> LEANNE BARKER WedSep 17, 2000 5:23 PM >> COMPLETED ON WedSep 17, 2000 5:42 PM >> CALL RECEIVED. Contact: merna maya [phone] TRIAGE REFERENCE: FEVER - PEDS CNG (c) 1998 STAT SX PED FEVER: can arouse, not confused or hyperirritable,, no resp. distress or stiff neck, nopurpura, none per guideline ASSESSMENT: duration (onset today, 0700 today temp was 102 orally. temp unknown now, have been tylen ol- last tylenol given was 12;30pm today. ), other symptoms: cough , nasal drainage, - no wheezing o r s/sx resp diff or distress, stomach ache- generalized, tender to the touch, no urinary sx, slightback pain, I & O (fluid intake today total is 10 oz, urination total today is 2 times- last vo id was 12; 30pm. no diarrhea). sore throat, able to swallow, slight dizziness. no rash. no diff walking. pt alert and interactive. PMH: (healthy, not diabetic) Current meds: (none) Med Allergies: (nkda) Weight: ( unknown) plan: 5:[address] frandy berrios - NO SUB DOC, as screen writer advised pt eval tonite, and mom wou ld like [facility] eval tonite 5:[address] berrios cb and VO = pt eval at [facility] tonite 5:41 PM cb to mom and informed of VO per dr. berrios. mom wants to bring pt to [facility]. note faxed to same. documented in this encounter Plan of Treatment Not on filedocumented as of this encounter Visit Diagnoses Not on filedocumented in this encounter Care Teams Shift Production Supervisor Relationship Specialty Start Date End Date Unassigned, Provider PCP - General 05/05/00 04/24/[address] [place] [address] documented as of this encounter
--- OUTSIDE RECORDS SUMMARY | 2022-03-10 16:00 | XMS_ITS | Encounter Summary ---
:1990 Author Organization [facility] Address [address] [place] [address] Care Team Providers Name Role Phone Unassigned, Provider Primary Care Provider Unavailable Reason for Visit Reason Onset Date Comments INJURY, NOS 07/14/2006 head Encounter Details Date Type Department Care Team Description 07/14/2006 Telephone Access [facility], Justina Kowalski MD IN [facility], NOS (head) Practice [address] [place], [place] [address] Social History Tobacco Use Types Packs/Day Years Used Date Smoking Tobacco: Never Alcohol Use Standard Drinks/Week Comments Not Asked 0 (1 standard drink = 0.6 oz pure alcoho l) Sex Assigned at Date Recorded Not on file documented as of this encounter Nursing Notes Jessika Astudillo - 07/16/2006 8:07 AM CST She still has a headache and sensitive to sound. The symptoms are getting less. Got conflicting advice from trainers at school. One said she should stay off ice until she has no sx, other states that headache is normal and that she can go on the ice for short time. Patient transferred to switchboard receptionist to set up appt. SIZER Jessika Astudillo - 07/15/2006 2:31 PM CST Left message to call back. SIZER Jessika Astudillo - 07/14/2006 5:01 PM CST Left message to call back. SIZER Justina Santiago - 07/14/2006 4:54 PM CST She does not need to come in if she is free of symptoms. SIZER Eliza Malik - 07/14/2006 9:07 AM CST Recieved a mild concussion on Sat. In hockey. Does she need to come in. Eliza Malik SIZER documented in this encounter Plan of Treatment Not on filedocumented as of this encounter Visit Diagnoses Not on filedocumented in this encounter Care Teams Tooling Specialist Relationship Specialty Start Date End Date Unassigned, Provider PCP - General 05/05/00 04/24/[address] [place] [address] documented as of this encounter
--- OUTSIDE RECORDS SUMMARY | 2022-03-10 16:00 | XMS_ITS | Encounter Summary ---
:1990 Author Organization [facility] Address [address] [place] [address] Care Team Providers Name Role Phone Unavailable Primary Care Provider Unavailable Reason for Visit Reason Comments Dysphagia SORE THROAT,NURSE Encounter Details Date Type Department Care Team Description 06/16/1998 Telephone Careline Kristal Fuentes Dysphagia; SORE [address] L, WARDROBE CONSULTANT, SAILING OFFICER THROAT,NURSE [place], [place] [address] [phone] [place] [address] Social History Tobacco Use Types Packs/Day Years Used Date Smoking Tobacco: Never Assessed Sex Assigned at Date Recorded Not on file documented as of this encounter Nursing Notes 06/16/1998 11:59 PM GASTROENTEROLOGY TEACHER >> KRISTAL FUENTES 06/16/1998 10:14 am 10:14 AM okay to go to [facility] per Dr. Suarez, mom told >> CALL RECEIVED. Contact: [phone] mom mac >> KRISTAL FUENTES 06/16/1998 10:06 am STAT SX: no breathing difficulty and can swallow; onset was gradual ASSESSMENT: Duration (1d), dysphagia (y), symptoms: (swollen tonsils and throat red), fever (n), hx of strep: (n), exposure to strept: (n), cold sx: (n). tries not to swallow because painful, drinking fluids, swallowed fruit 10:[address] Suarez documented in this encounter Plan of Treatment Not on filedocumented as of this encounter Visit Diagnoses Not on filedocumented in this encounter
--- OUTSIDE RECORDS SUMMARY | 2022-03-10 16:00 | XMS_ITS | Encounter Summary ---
:1990 Author Organization [facility] Address [address] [place] [address] Care Team Providers Name Role Phone Unassigned, Provider Primary Care Provider Unavailable Encounter Details Date Type Department Care Team Description 03/12/2004 Correspondence None Unknown, Physici an IMMUNIZATIONS [address] [place], [place] [address] (Wo rk) Social History Tobacco Use Types Packs/Day Years Used Date Smoking Tobacco: Never Assessed Sex Assigned at Date Recorded Not on file documented as of this encounter Progress Notes Unknown, Physician - 03/12/2004 12:00 AM CDT documented in this encounter Plan of Treatment Not on filedocumented as of this encounter Visit Diagnoses Not on filedocumented in this encounter Care Teams Log Rafter Relationship Specialty Start Date End Date Unassigned, Provider PCP - General 05/05/00 04/24/07 [address] [place] [address] documented as of this encounter
== END 2022-02-16 15:56 | disposition home or self-care (01) ==
LOC: NFLDREF 15:56
PROVIDERS: PCP Physician Assistant Medical; Visit Provider Physician Assistant
DX: Z34.91 Encounter for supervision of normal pregnancy, unspecified, first trimester (principal); Z3A.01 Less than 8 weeks gestation of pregnancy
CPT/HCPCS: 86592; 86703; 86762; 86787; 86803; 86850; 86900; 86901; 87086; 87340; 87491

== ENCOUNTER 2022-04-17 16:44 | Outpatient (CLI) | payer BC, SELFPAY ==
--- OUTSIDE RECORDS SUMMARY | 2022-04-17 16:47 | XMS_ITS | Clinical Summary ---
:1991 Author [facility] Address [address] [place] [address] Care Team Providers Name Role Phone Victor [...] for each transition of care or referral. [facility] Allergies No known active allergies Medications Medication [...] Influenza IIV4 (Quadrivalent) 0.5mL 05/26/2018, 04/19/2017, 04/02/2015, ([id number]) 05/10/2014, 05/26/2013 Influenza Vaccine (3+years) ([place] [...] Mother Coronary Artery Disease Maternal Grandfather d [place] in his 40s Other Maternal Grandmother arthritis Alzheimer's Paternal Grandfather Asthma Paternal Grandfather Coronary Artery Disease Paternal Grandfather Glaucoma Paternal Grandmother Cancer, Breast Negative Family History Cancer, Colon Negative Family History Cancer, Ovary Negative Family History Macular Degeneration Negative Family History Retinal Detachment Negative Family History Relation Name Status Comments Father Alive Mother Alive Brother Alive Maternal Grandfather (Age 45) [place] Maternal Grandmother (Age ? age) pancre atic [...] CDT Oxygen Saturation 100% 07/29/2017 3:05 PM ADOBE MAKER Inhaled Oxygen Concentration - - Weight 90.3 [...] Type Plan / Dates Group VICTOR MANUEL [facility] [id number] 2015-Pres C ommercial DENTAL PLAN [facility] ent DENTAL BCBS [facility] [id number] 2020-Pres [address] ommercial 1 ent [address] [place] [address] Care Teams Change Director Relationship Specialty Start Date End Date Victor Manuel Clinician PCP - General 11/22/[address] [place] [address]
--- OUTSIDE RECORDS SUMMARY | 2022-04-17 16:47 | XMS_ITS | Encounter Summary ---
:1990 Author Organization [facility] Address [address], [place] [address] Care Team Providers Name Role Phone [facility], Clinician Primary Care Provider Unavailable Reason for Visit Reason Onset Date Comments Refill 08/12/2020 omeprazole (PRILOSEC ) 20 MG capsule Encounter Details Date Type Department Care Team Description 08/12/2020 Refill [facility] [address], Refill (omeprazole [facility] PA-Elisa (PRILOSEC) [address] capsule) [place] [address] [place], [place] [id number] (Wo rk) Social History Tobacco Use Types [...] Level: 2.5 mg/dL on 05/03/2018 Powered by [employer], Reference: [id number], 08/12/2020 9:25:22 AM HOTEL ASSOCIATE, Pool: Juan Arevalo Care Team ([id number]) L ASSOCIATE Interface, Out Surescripts Prov Query - 08/12/2020 9:25 AM CST The following lab order(s) may be associated with the Result Note below: MAGNESIUM Notes Recorded by Chrissie Acharya LPN on 05/03/2018 at 2:07 PM Results letter sent. Chrissie Acharya LPN 05/03/2018, 2:07 PM ------ Notes Recorded by Kaitlyn Muhammad, OPERATIONAL RISK MANAGER, ART PSYCHOTHERAPIST OR THERAPIST on 05/03/2018 at 1:16 PM Juliette, Your electrolyte and magnesium levels are normal. Your vitamin D level is quite low which could be contributing to joint and muscle pain. Please take vitamin D and calcium supplements as we discussed during your visit. Please call for further questions or concerns. Kaitlyn Muhammad APRN, ART PSYCHOTHERAPIST OR THERAPIST 05/03/2018, 1:16 PM L ASSOCIATE documented in this encounter Plan of Treatment Not on filedocumented as of this encounter Visit Diagnoses Not on filedocumented in this encounter Care Teams Customs Compliance Director Relationship Specialty Start Date End Date Victor Manuel Clinician PCP - General 11/22/[address] [place] [address] [place] [address] documented as of this encounter
--- OUTSIDE RECORDS SUMMARY | 2022-04-17 16:47 | XMS_ITS | Encounter Summary ---
:1990 Author Organization [facility] Address [address] [address] Care Team Providers Name Role Phone [facility], Clinician Primary Care Provider Unavailable Reason for Visit Reason Comments MONITORING HIGH-RISK MEDICATION Encounter Details Date Type Department Care Team Description 03/19/2020 Office Visit Rakesh Goldberg, Encounter for eye exam due to high risk medication (Primary Dx); Ophthalmology OD Ptosis, congenital, bilateral [address] [facility] [address] [place] [address] [address] [phone] [place] [address] (Wo rk) Social History Tobacco [...] eyelid documented in this encounter Care Teams Staff Development Educator Relationship Specialty Start Date End Date Victor Manuel Clinician PCP - General 11/22/[address] [address] [place], [place] [address] documented as of this encounter
--- OUTSIDE RECORDS SUMMARY | 2022-04-17 16:47 | XMS_ITS | Encounter Summary ---
:1990 Author Organization [facility] Address [address] [address] Care Team Providers Name Role Phone [facility], Clinician Primary Care Provider Unavailable Reason for Visit Reason Comments Refill famotidine (PEPCID) 20 MG ta blet [Pharmacy Med Name: FAMOTIDINE 20MG TABLETS] Encounter Details Date Type Department Care Team Description 01/11/2020 Refill [facility] [address], Refill (famotidine [facility] PERINATAL TECH, AGING ROOM HAND (PEPCID) 20 MG tablet [address] [Pharmacy [place] Name: [place] [address] [place], [place] FAMOTIDINE 20MG [phone] [id number] TABLETS]) [phone] (Wo rk) Social History Tobacco Use Types [...] Garces RN 01/11/2020, 10:52 AM Interface, Out [employer] Prov Query - 01/11/2020 3:30 AM CDT [...] a day. (changed but equivalent) Powered by [employer], Reference: [id number], 01/11/2020 3:30:24 AM CDT, Pool: Oksana Chacko Care Team ([id number]) documented in this encounter Plan of Treatment Not on filedocumented as of this encounter Visit Diagnoses Not on filedocumented in this encounter Care Teams Middle [employer] French Teacher Relationship Specialty Start Date End Date [facility], Clinician PCP - General 11/22/18 [address] [place] [address] documented as of this encounter
--- OUTSIDE RECORDS SUMMARY | 2022-04-17 16:47 | XMS_ITS | Encounter Summary ---
:1990 Author Organization [facility] Address [address] [address] Care Team Providers Name Role Phone [facility], Clinician Primary Care Provider Unavailable Reason for Visit Reason Comments Refill Encounter Details Date Type Department Care Team Description 08/15/2019 Refill [facility] Patience Quiros MD Refill [address] [facility] [address] [place] [address] [place] [address] [phone] (Wo rk) Social History Tobacco Use Types [...] 06-15-2018 No ophthalmoscopic evidence of ocular toxicity CRIB SUPERVISOR Lee Ann Hodges LPN - 08/15/2019 12:16 PM CST Patient scheduled an appointment with Dr Dacosta 09-21-19 in 1V. She will schedule eye exam at [facility] this week.. CRIB SUPERVISOR Bethanie Trinh, MARIIA - 08/15/2019 11:50 AM CST LV 05-26-2018 FV None Last eye exam 06-15-2018 Last office visit - to follow up in 1 year Nurse left message for patient to return call. Patient needs a FV and an eye exam CRIB SUPERVISOR documented in this encounter Plan of Treatment Not on filedocumented as of this encounter Visit Diagnoses Diagnosis Undifferentiated connective tissue disea se (HRC) Unspecified diffuse connective tissue di sease High risk medication use Encounter for long-term (current) use of other medications documented in this encounter Care Teams Interactive Developer Relationship Specialty Start Date End Date Victor Manuel, Clinician PCP - General 11/22/18 [address] [place] [address] documented as of this encounter
--- OUTSIDE RECORDS SUMMARY | 2022-04-17 16:47 | XMS_ITS | Encounter Summary ---
:1990 Author [facility] Address [address], [place] [address] Care Team Providers Name Role Phone Unavailable Primary Care Provider Unavailable Reason for Visit Reason Comments APPOINTMENT REQUEST Encounter Details Date Type Department Care Team Description 10/05/2017 Telephone Specialty Center [address] Marcia Medeiros APPOINTMENT REQUEST Rheumatology Clinic MD Letty [address] [place] [address]. [address] [place] [address] [place], [place] [phone] (Wo rk) Social History Tobacco Use Types [...] 11:43 AM CST Cancel error for TE. EKEEPER/LAUNDRY ASSISTANT documented in this encounter Plan of Treatment Not on filedocumented as of this encounter Visit Diagnoses Not on filedocumented in this encounter
--- OUTSIDE RECORDS SUMMARY | 2022-04-17 16:47 | XMS_ITS | Encounter Summary ---
:1990 Author Organization [facility] Address [address], [place] [address] Care Team Providers Name Role Phone Unavailable Primary Care Provider Unavailable Reason for Visit Reason Comments Refill hydroxychloroquine (PLAQUENI L) 200 MG tablet [Pharmacy Med Name: HYDROXYCHLOROQUINE 200 MG TA B] Encounter Details Date Type Department Care Team Description 12/13/2017 Refill [facility] 401 Orlando Mckinley (hydroxychloroquine Rheumatology Clinic MD Charles (PLAQUENIL) 200 MG tablet 401 [facility] [Pharmacy Med Name: [place] [address] HYDROXYCHLOROQUINE 200 MG [phone] TAB]) Social History Tobacco Use Types Packs/Day [...] two times a day. (unchanged) Powered by [employer], Reference: [id number], 12/13/2017 1:19:13 AM CDT, Pool: Arlen Perry Care Team ([id number]) documented in this encounter Plan of Treatment Not on filedocumented as of this encounter Visit Diagnoses Not on filedocumented in this encounter
--- OUTSIDE RECORDS SUMMARY | 2022-04-17 16:47 | XMS_ITS | Encounter Summary ---
:1990 Author Organization [facility] Address [address] [place] [address] Care Team Providers Name Role Phone Unavailable Primary Care Provider Unavailable Encounter Details Date Type Department Care Team Description 05/03/2018 Lab Visit [facility] Specialty Gas troesophageal reflux disease, esophagitis presence not specified; Center [address] Laborator y Chronic gastritis without bl eeding, unspecified gastritis type [address] [place] [address] Social History Tobacco Use Types [...] Acharya LPN 05/03/2018, 2:07 PM Kaitlyn Muhammad, ACID STRENGTH INSPECTOR, PERFORMANCE MAKEUP ARTIST - 05/03/2018 1:16 PM CDT Juliette, Your [...] - 05/03/2018 12:42 PM CDT Performed at [facility], [address] [place] [address] ??[id number] Kaitlyn Muhammad APRN, CNP LAB_1 Performing Organization Address City/State/ZIP Code Phon e Number [facility] [phone] (ABNORMAL) Vitamin D 25-Hydroxy, Total (05/03/2018 8:40 [...] 05/03/2018 1:02 PM C DT Performed at [facility], [address] [place] [address] ??[id number] Kaitlyn Muhammad APRN, PERFORMANCE MAKEUP ARTIST LAB_1 Performing Organization Address [facility] Phon e Number [facility] [phone] Basic Metabolic Panel (05/03/2018 8:40 AM CDT) [...] - 05/03/2018 12:42 PM CDT Performed at [facility], [address] [place] [address] ??[id number] Kaitlyn Muhammad APRN PERFORMANCE MAKEUP ARTIST LAB_1 Performing Organization Address [facility] Phon e Number [facility] [phone] documented in this encounter Visit Diagnoses Diagnosis Gastroesophageal reflux disease, esophag itis presence not specified Chronic gastritis without bleeding, unsp ecified gastritis type documented in this encounter
--- OUTSIDE RECORDS SUMMARY | 2022-04-17 16:47 | XMS_ITS | Encounter Summary ---
:1990 Author Organization [facility] Address [address] [place] [address] Care Team Providers Name Role Phone [facility], Clinician Primary Care Provider Unavailable Reason for Visit Reason Comments SKIN LESION Left upper back mole has fal lamonte off, spot mid back possibly removed. Encounter Details Date Type Department Care Team Description 11/14/2021 Procedure Visit [facility] [address] [place] LESION (Left Dermatology MD Oma upper back mole has [address] [place] fal lamonte off, spot mid [address] back possibly [place], [place] re moved. ) [id number] Social History Tobacco Use Types Packs/Day Years [...] Value Ref Test Analysis Performed At [facility] gist Range Method Time Signature Case Report Surgical Pathology Report ? Case: [id number] ? 11/20/2021 [facility] [address] Authorizing Provider: ??Ana Brush MD ? Collected: ? 11/14/2021 1111 ? 2:58 PM DERMATO LOGY Ordering Location: ? [facility] 3800 ? Received: ?11/14/2021 1348 ? CDT ? Dermatology ? Pathologist: ? Urmila Arita MD ? Specimen: ?Skin, Right U pper Back ? FINAL A. Skin, Right Upper Back, shave: 2021 [facility] 3800 Electronically DIAGNOSIS - Compound nevus, extending to the edges of the specimen. 2:58 PM DERMATOLOGY signed by CDT Urmila Arita MD on 11/20/2021 at 2:58 PM Clinical Clinical Impression: irritated nevus [facility] 3800 Information 2:58 PM DERMATOLOGY CDT Microscopic Microscopic 11/20/2021 [facility] 3800 Description examination is 2:58 PM DERMATOLOGY performed. CDT Special Stains A portion of the 11/20/2021 [facility] 380 0 technical 2:58 PM DERMATOLOGY staining was CDT performed at [facility], [address] [place] [address]. The professional interpretation was performed at [facility]. Gross A: 11/20/2021 [facility] 3800 Description Received in formalin, labele d with the patient's name and Skin, Right Upper Back is a 8 x 5 x 2 mm shave biopsy of skin. The specimen is marked with camelia ink, bisected, and submitted entirely in one cassette. 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
--- OUTSIDE RECORDS SUMMARY | 2022-04-17 16:47 | XMS_ITS | Encounter Summary ---
:1990 Author Organization [facility] Address [address], [place] [address] Care Team Providers Name Role Phone [facility], Clinician Primary Care Provider Unavailable Reason for Visit Reason Comments Refill omeprazole (PRILOSEC) 20 MG capsule [Pharmacy Med Name: OMEPRAZOLE 20MG CAPSULES] Encounter Details Date Type Department Care Team Description 05/12/2019 Refill [facility] 435 Omari Muhammad R , Refill (omeprazole [facility] FUSE CUP EXPANDER, CHIP MACHINE OPERATOR (PRILOSEC) 20 MG capsule [address] [Pharmacy Med Name: [place] [address] [place], [place] OMEPRAZOLE 20MG [phone] CAPSULES]) [phone] (Wo rk) Social History Tobacco Use Types [...] MG capsule. Pharmacy notified. Omari Muhammad APRN, CHIP MACHINE OPERATOR - 05/12/2019 2:17 PM CDT Please call [...] Level: 2.5 mg/dL on 05/03/2018 Powered by [employer], Reference: [id number], 05/12/2019 2:09:16 PM CDT, Pool: Jb Sahni Care Team ([id number]) IAL COLLECTIONS LIBRARIAN Interface, Out [employer] Prov Query - 05/12/2019 2:09 PM CDT The following lab order(s) may be associated with the Result Note below: MAGNESIUM Notes Recorded by Chrissie Acharya LPN on 05/03/2018 at 2:07 PM Results letter sent. Chrissie Acharya LPN 05/03/2018, 2:07 PM ------ Notes Recorded by Omari Muhammad APRN, CHIP MACHINE OPERATOR on 05/03/2018 at 1:16 PM Juliette, Your electrolyte and magnesium levels are normal. Your vitamin D level is quite low which could be contributing to joint and muscle pain. Please take vitamin D and calcium supplements as we discussed during your visit. Please call for further questions or concerns. Omari Muhammad APRN, CHIP MACHINE OPERATOR 05/03/2018, 1:16 PM IAL COLLECTIONS LIBRARIAN documented in this encounter Plan of Treatment Not on filedocumented as of this encounter Visit Diagnoses Diagnosis Current use of proton pump inhibitor - P rimary Gastroesophageal reflux disease, esophag itis presence not specified documented in this encounter Care Teams Stationary Boiler Fireman Relationship Specialty Start Date End Date Victor Manuel, Nemesio PCP - General 11/22/18 [address] [place] [address] documented as of this encounter
--- OUTSIDE RECORDS SUMMARY | 2022-04-17 16:47 | XMS_ITS | Encounter Summary ---
:1990 [facility] Address [address], [place] [address] Care Team Providers Name Role Phone Needs Pcp, Assignment Primary Care Provider Reason for Referral Consult/Transfer Care (Routine) - Closed Specialty Diagnoses / Procedures Referred By Contact Refer red To Contact Diagnoses Undifferentiated connective tissue disease (HRC) High risk medication use Patience Jiang MD [address] [place] [address] Referral ID Status Reason Start Date Expiration Date Visits Requ ested Visits Authorized [id number] Closed 05/26/2018 08/25/2019 1 1 Scheduling Instructions Your provider has recommended an appoint ment with Amina Reed [facility]. You may call [phone] to schedule your appoi ntment. If you do not schedule an appointment within the next 1 to 3 business days, we will call you. Reason for Visit Reason Comments CONSULT Encounter Details Date Type Department Care Team Description 05/26/2018 Initial Consult Patience Plummer Undiffer entiated connective tissue disease (HRC) (Primary Dx); Rheumatology MD Tanja Needs flu shot; [address] [facility] High [place] [address] [phone] Social History Tobacco Use Types Packs/Day Years [...] New Patient/Consult Note Referral: PATIENT SELF REFERRAL, [place] [address] Chief Complaint Patient presents with ??? CONSULT [...] for establishment of care following Dr. Winn's half-way. She states that she has done well [...] health her symptoms otherwise. She lives in [place] with her boyfriend and dog. They are saving up for their own house. She is doing night school through [employer]. Her goal is to become a marriage and family counselor. 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 She enjoys walking her dog with her boyfriend and herfree time. She will consume alcohol on social occasions but otherwise does not consume alcohol. Denies any ongoing tobacco or drug use. Her brother has vitiligo and her father and paternal grandmother have osteoarthritis. Her mother lives in [place]. Her father lives locally. She has 1 [...] was given as she is available in [place] on Mondays,depending on my clinic availability. Return [...] Ordered: Consult-Adult/Peds connective tissue dise ase 05/26/2018 ([facility]) High risk medication use documented as of this encounter Visit Diagnoses Diagnosis Undifferentiated connective tissue disea se ([facility]) - Primary Unspecified diffuse connective tissue di sease Needs flu shot Need for prophylactic vaccination and in oculation against influenza High risk medication use Encounter for long-term (current) use of other medications documented in this encounter Care Teams Fuel Yard Operator Relationship Specialty Start Date End Date Needs Pcp, Assignment PCP - General 05/26/18 11/21/18 [place] [address] documented as of this encounter
--- OUTSIDE RECORDS SUMMARY | 2022-04-17 16:47 | XMS_ITS | Encounter Summary ---
:1990 Author [facility] Address [address] [address] Care Team Providers Name Role Phone Needs Pcp, Assignment Primary Care Provider Reason for Visit Reason Comments Eye Exam Consult/Transfer Care (Routine) - Closed Specialty Diagnoses / Procedures Referred By Contact Refer red To Contact Diagnoses Undifferentiated connective tissue disease (HRC) High risk medication use Patience Jiang MD [address] [place] [address] Referral ID Status Reason Start Date Expiration Date Visits Requ ested Visits Authorized [id number] Closed 05/26/2018 08/25/2019 1 1 Encounter Details Date Type Department Care Team Description 06/15/2018 Office Visit Deep Bailey, Encounter for eye exam due to high risk medication (Primary Dx); Ophthalmology OD Long-term use of Plaquenil; [address] [address] [address] Emmetropia; [place] [address] [place], [place] Ptosis, congenital, bilatera l [phone] (Wo rk) Social History Tobacco Use Types [...] HVF 10-2 ?? OCT: ?? Macula Cube [id number] ?? HD 1 line 100x ?? HD 21 line ?? Spectacle prescription not necessary, not recommended, and not writtent to patient ?? Return for comprehensive eye and Hydroxychloroquine eye health assessment in 1 year or as needed DER MACHINE KNIFE SETTER documented in this encounter Plan of Treatment Not on filedocumented as of this encounter Visit Diagnoses Diagnosis Encounter for eye exam due to high risk medication - Primary Long-term use of Plaquenil Emmetropia Screening for other eye conditions Ptosis, congenital, bilateral Congenital ptosis of eyelid documented in this encounter Care Teams Oven Builder Relationship Specialty Start Date End Date Needs Pcp, Assignment PCP - General 05/26/18 11/21/18 [place] [address] documented as of this encounter
--- OUTSIDE RECORDS SUMMARY | 2022-04-17 16:47 | XMS_ITS | Encounter Summary ---
:1990 Author Organization [facility] Address [address] [address] Care Team Providers Name Role Phone [facility], Clinician Primary Care Provider Unavailable Reason for Visit Reason Comments Video Visit Follow-up Encounter Details Date Type Department Care Team Description 12/11/2019 Telemedicine [place] Merlin Dacosta MD Undifferentiated connective tissue disea se (HRC); Rheumatology [address] [place] [address] High risk medication use [address] [place] [address] [phone] Social History Tobacco Use Types Packs/Day Years [...] to systemic prednisone and was started on [id number] mg twice daily which later on was [...] or sooner if needed. Merlin Dacosta. Rheumatology [facility] documented in this encounter Plan of Treatment Not on filedocumented as of this encounter Visit Diagnoses Diagnosis Undifferentiated connective tissue disea se (HRC) Unspecified diffuse connective tissue di sease High risk medication use Encounter for long-term (current) use of other medications documented in this encounter Care Teams Marine Transport Professionals Relationship Specialty Start Date End Date Victor Manuel, Clinician PCP - General 11/22/[address] [address] documented as of this encounter
--- OUTSIDE RECORDS SUMMARY | 2022-04-17 16:47 | XMS_ITS | Encounter Summary ---
:1990 Author Organization [facility] Address [address] [place] [address] Care Team Providers Name Role Phone [facility], Clinician Primary Care Provider Unavailable Reason for Visit Reason Comments SKIN LESION Back changing mole Encounter Details Date Type Department Care Team Description 09/25/2021 Office Visit [facility] [address], Jeb ltiple benign melanocytic nevi of upper and lower extremities and trunk (Primary Dx); Dermatology Lentigines; [address] Jin orrheic keratosis; [address] [place] [address] [phone] (Wo rk) Social History Tobacco Use Types [...] Recommended skin cancer screening every 2-3 years. UP WORKER documented in this encounter Plan of Treatment Not on filedocumented as of this encounter Visit Diagnoses Diagnosis Multiple benign melanocytic nevi of uppe r and lower extremities and trunk - Primary Lentigines Other dyschromia Seborrheic keratosis Other seborrheic keratosis [place] hemangioma Nevus, non-neoplastic documented in this encounter Care Teams Director River Restoration Relationship Specialty Start Date End Date Victor Manuel, Clinician PCP - General 11/22/[address] [address] documented as of this encounter
--- OUTSIDE RECORDS SUMMARY | 2022-04-17 16:48 | XMS_ITS | Encounter Summary ---
:1990 Author Organization [facility] Address [address], [place] [address] Care Team Providers Name Role Phone Unavailable Primary Care Provider Unavailable Reason for Visit Reason Comments Refill Encounter Details Date Type Department Care Team Description 11/01/2016 Refill [facility] [address] Oma Bhat, Refill [facility] SHOE HANDLER, PROGRAMS ASSISTANT [address] [place] [address] [place] [address] [phone] (Wo rk) Social History Tobacco Use Types [...] treatment and results of testing.?? Lorrie Ferrari, SHOE HANDLER, PROGRAMS ASSISTANT?? 08/06/2016, 9:06 AM Refilled Prilosec per S.O. Protocol Nadia Garces RN 11/02/2016, 9:46 AM documented in this encounter Plan of Treatment Not on filedocumented as of this encounter Visit Diagnoses Not on filedocumented in this encounter
--- OUTSIDE RECORDS SUMMARY | 2022-04-17 16:48 | XMS_ITS | Encounter Summary ---
:1990 Author Organization [facility] Address [address], [place] [address] Care Team Providers Name Role Phone Unavailable Primary Care Provider Unavailable Reason for Visit Reason Comments Revisit Encounter Details Date Type Department Care Team Description 04/28/2017 Office Visit [facility] Kaitlyn Muhammad oesophageal reflux disease, esophagitis presence not specified (Primary Dx); [address] [facility], [facility] ADVISORS, GLOBAL HUMAN RESOURCES DIRECTOR Current use of proton pump inhibitor Clinic [address] [place] [phone] Social History Tobacco Use Types Packs/Day Years [...] vitamin D to prevent bone loss with penitentiary omeprazole use. Please follow up in 6 months and call for further questions or concerns. Your follow up appointment with Kaitlyn Mason NP is scheduled for WednesdayOctober 26 at 8:40 am. If your appointment needs to be cancel or reschedule please call [phone]. Kaitlyn Mason APRN, CNP 04/28/2017, 8:56 AM If you have any questions or concerns, please call [facility] at [phone]. documented in this encounter Progress Notes Kaitlyn [...] were drawn to assess for deficiencies with penitentiary PPI use. She was asked to follow [...] 04/28/2017 1:29 PM C DT Performed at [facility], [address] [place] [address] ??[id number] Kaitlyn Muhammad APRN, CNP LAB_1 Performing Organization Address [facility] Phon e Number [facility] [phone] Magnesium (04/28/2017 9:13 AM CDT) athologist Signature Magnesium 2.3 1.6 - 2.6 [facility] mg/dl Specimen Anatomical Collection Method Collection Time Receive d Time (Source) Location / / Volume Laterality 04/28/2017 9:13 AM 7 9:21 CDT AM CDT Narrative [facility] - 04/28/2017 12:58 PM CDT Performed at [facility], [address] [place] [address] ??[id number] Kaitlyn Muhammad APRN, CNP LAB_1 Performing Organization Address [facility] Phon e Number [facility] [phone] documented in this encounter Visit Diagnoses Diagnosis Gastroesophageal reflux disease, esophag itis presence not specified - Primary Current use of proton pump inhibitor Gastroesophageal reflux disease, esophag itis presence not specified documented in this encounter
--- OUTSIDE RECORDS SUMMARY | 2022-04-17 16:48 | XMS_ITS | Encounter Summary ---
:1990 Author Organization [facility] Address [address] [place] [address] Care Team Providers Name Role Phone Unavailable Primary Care Provider Unavailable Encounter Details Date Type Department Care Team Description 04/19/2017 Lab Visit Special[facility] Center Undiffer entiated connective Laboratory tissue disease (HRC) [address] [place] [address] Social History Tobacco Use Types [...] City/State/ZIP Code Phon e Number [facility] [phone] (ABNORMAL) C-Reactive Protein (04/19/2017 8:54 AM CDT) Patholo gist Method Time Signature C-Reactive 1.2 (H) 0.0 - 0.7 [facility] Protein mg/dL LAB[facility]ATORIES Comment: Note: results are expressed in mg/dL. Specimen Anatomical Collection Method Collection Time Receive d Time (Source) Location / / Volume Laterality 04/19/2017 8:54 AM 7 8:57 CDT AM CDT Narrative [facility] - 04/19/2017 12:48 PM CDT Performed at [facility], [address] [place] [address] ??[phone] Orlando Mckinley MD LAB_1 Performing Organization Address City/State/ZIP Code Phon e Number [facility] [phone] (ABNORMAL) ESR (04/19/2017 8:54 AM CDT) P athologist Signature ESR 42 (H) 0 - 20 [facility] mm/hr Specimen Anatomical Collection Method Collection Time Receive d Time (Source) Location / / Volume Laterality 04/19/2017 8:54 AM 7 8:57 CDT AM CDT Narrative [facility] - 04/19/2017 3:14 PM C DT Performed at [facility], [address] [place] [address] ??[id number] Orlando Mckinley MD LAB_1 Performing Organization Address [facility] Phon e Number [facility] [phone] (ABNORMAL) UA Micro If (04/19/2017 8:54 AM CDT) [facility] gist Method Time Signature Urine Color Yellow [...] Orlando Mckinley MD LAB_1 Performing Organization Address [facility] Phon e Number [facility] [phone] Creatinine / GFR (04/19/2017 8:54 AM CDT) Analysis Performed At [facility] logist Time Signature Creatinine 0.68 0.55 - [facility] 1.02 mg/dl LABORATORIES GFR, Estimated >60 >60 [facility] ml/min/1.7 LABORATORIES 3m2 GFR, Est., If >60 >60 [facility] Black ml/min/1.7 LABORATORIES 3m2 Specimen Anatomical Collection Method Collection Time Receive d Time (Source) Location / / Volume Laterality 04/19/2017 8:54 AM 7 8:57 CDT AM CDT Narrative [facility] - 04/19/2017 12:48 PM CDT Performed at [facility], [address] [place] [address], [place] ??[address] Orlando Mckinley MD LAB_1 Performing Organization Address City/[facility]/ZIP Code Phon e Number [facility] [phone] Complete Blood Count-No Diff (04/19/2017 8:54 AM [...] 04/19/2017 1:12 PM C DT Performed at [facility], [address] [place] [address] ??[address] Orlando Mckinley MD LAB_1 Performing Organization Address City/[facility]/ZIP Code Phon e Number [facility] [phone] documented in this encounter Visit Diagnoses Diagnosis Undifferentiated connective tissue disea se (HRC) Unspecified diffuse connective tissue di sease documented in this encounter
--- OUTSIDE RECORDS SUMMARY | 2022-04-17 16:48 | XMS_ITS | Encounter Summary ---
:1990 Author Organization [facility] Address [address] [place] [address] Care Team Providers Name Role Phone Unavailable Primary Care Provider Unavailable Reason for Visit Reason Comments Refill raNITIdine (ZANTAC) 150 MG t ablet [Pharmacy Med Name: RANITIDINE 150 MG TABLET] Encounter Details Date Type Department Care Team Description 09/30/2016 Refill [facility] 435 Elaine Shultz MD Refill (raNITIdine [facility] [address] [address] SALDA[address] (ZANTAC) 150 MG tablet 435 [place] [address] [Pharmacy Med Name: [place] [address] RANITIDINE 150 MG [phone] TABLET]) Social History Tobacco Use Types Packs/Day [...] CST per standing order Edith Ivan RN INED RAILWAY OPERATOR Interface, Out [email or web address] Query - 09/30/2016 1:40 AM CST raNITIdine [...] at bedtime if needed (unchanged) Powered by [employer], Reference: [id number], 09/30/2016 1:40:51 AM ANNETTE, [place]: TAMEKA BATISTA RN ([id number]) INED RAILWAY OPERATOR documented in this encounter Plan of Treatment Not on filedocumented as of this encounter Visit Diagnoses Not on filedocumented in this encounter
--- OUTSIDE RECORDS SUMMARY | 2022-04-17 16:48 | XMS_ITS | Encounter Summary ---
:1990 Author Organization [facility] Address [address], [place] [address] Care Team Providers Name Role Phone Unavailable Primary Care Provider Unavailable Reason for Visit Reason Comments Refill hydroxychloroquine (PLAQUENI L) 200 MG tablet [Pharmacy Med Name: HYDROXYCHLOROQUINE 200 MG TA B] Encounter Details Date Type Department Care Team Description 03/01/2017 Refill [facility] 401 Orlando Mckinley (hydroxychloroquine Rheumatology [facility] MD Charles (PLAQUENIL) 200 MG tablet 401 [facility] [Pharmacy Med Name: [place] [address] HYDROXYCHLOROQUINE 200 MG [phone] TAB]) Social History Tobacco Use Types Packs/Day [...] tab by mouth daily. (changed) Powered by [employer], Reference: [id number], 03/01/2017 12:38:52 AM CDT, Pool: Arlen Perry Care Team ([id number]) documented in this encounter Plan of Treatment Not on filedocumented as of this encounter Visit Diagnoses Not on filedocumented in this encounter
--- OUTSIDE RECORDS SUMMARY | 2022-04-17 16:48 | XMS_ITS | Encounter Summary ---
:1990 Author Organization [facility] Address [address] [place] [address] Care Team Providers Name Role Phone Unavailable Primary Care Provider Unavailable Encounter Details Date Type Department Care Team Description 04/28/2017 Lab Visit [facility] Specialty Gas troesophageal reflux Center 435 Laborator y disease, esophagitis [address] presence not specified [place], [place] [id number] Social History Tobacco Use Types Packs/Day Years [...] RN 04/28/2017, 3:42 PM Kaitlyn Mason APRN, SLICER MACHINE OPERATOR - 04/28/2017 1:55 PM CDT Juliette, Your [...] PM C DT Performed at [facility], [address] [place] [address] ??[address] Kaitlyn Muhammad APRN, CNP LAB_1 Performing Organization Address City/State/ZIP Code Phon e Number [facility] [phone] Magnesium (04/28/2017 9:13 AM CDT) P athologist Signature Magnesium 2.3 1.6 - 2.6 [facility] mg/dl Specimen Anatomical Collection Method Collection Time Receive d Time (Source) Location / / Volume Laterality 04/28/2017 9:13 AM 7 9:21 CDT AM CDT Narrative [facility] - 04/28/2017 12:58 PM CDT Performed at [facility], [address] [place] [address] ??[address] Kaitlyn Muhammad APRN, CNP LAB_1 Performing Organization Address City/State/ZIP Code Phon e Number [facility] [phone] documented in this encounter Visit Diagnoses Diagnosis Gastroesophageal reflux disease, esophag itis presence not specified documented in this encounter
--- OUTSIDE RECORDS SUMMARY | 2022-04-17 16:48 | XMS_ITS | Encounter Summary ---
:1990 Author Organization [facility] Address [address] [place] [address] Care Team Providers Name Role Phone Unavailable Primary Care Provider Unavailable Reason for Visit Procedure/Equipment (Routine) - Closed Specialty Diagnoses / Procedures Referred By Contact Refer red To Contact Diagnoses Gastroesophageal reflux disease, esophagitis presence not specified Lorrie Bhat, BOAT HOIST OPERATOR, DISSOLVER OPERATOR [address] [place] [address] Referral ID Status Reason Start Date Expiration Date Visits Requ ested Visits Authorized [id number] Closed 08/06/2016 11/05/2017 1 1 Encounter Details Date Type Department Care Team Description 11/06/2016 Procedure Visit [facility] Christina Palacio, Center Gastroenterol tomer AKINS 435 [facility] [address] [place] [address] [address] [place], [place] [address] Social History Tobacco Use [...] in this encounter Results GI UPPER ENDOSCOPY [[id number]] (11/06/2016 12:05 PM CDT) Specimen (Source) Anatomical [...] Code(s): ?? --- Professional - -- ? 75791, Es ophagogastroduodenoscopy, flexible, ? transoral ; with biopsy, single or multiple Diagnosis Code(s): ?? --- Professional - -- ? K21.0, Ga stro-esophageal reflux disease with ? esophagit is ? R10.13, E pigastric pain ? R13.10, D ysphagia, unspecified ? R12, Hear tburn ? R19.7, Di arrhea, unspecified CPT copyright 2016 [employer]. All rights reserved. The codes documented in this report are preliminary and upon contract processor review may be revised to meet current [...] pathology results. Procedure Code(s): --- Professional --- 75947, Esophagogastroduodenoscopy, flex ible, transoral; with biopsy, single or multi ple Diagnosis Code(s): --- Professional --- K21.0, Gastro-esophageal reflux disease with esophagitis R10.13, Epigastric pain R13.10, Dysphagia, unspecified R12, Heartburn R19.7, Diarrhea, unspecified CPT copyright 2016 [employer]. All rights reserved. The codes documented in this report are preliminary and upon contract processor review may be revised to meet current complianc e requirements. Attending Participation: Stone Palacio MD 11/06/2016 12:45:19 PM Number of Addenda: 0 Note Initiated On: 11/06/2016 12:05 PM Stone Palacio MD DIGESTIVE CARE Performing Organization Address City/State/ZIP Code Phon e Number GI (PROVATION) GI (PROVATION) [place], [place] Surgical Path - Endoscopy (11/06/2016 7:00 AM CDT) [facility] gist Method Time Signature Histology (NOTE) [...] hours, and not longer than 72 hours. [facility]2/11/06/2016 Microscopic Description Microscopic examination performed. [facility]11/09/2016 Brisa Crabtree MD [facility] Department of Pathology [address] [place] [address] ??[phone] Specimen Anatomical Collection Method Collection Time Receive [...] Organization Address City/State/ZIP Code Phon e Number [address] [address] documented in this encounter Visit Diagnoses Diagnosis Dysphagia, unspecified type [R13.10] - P rimary documented in this encounter Administered Medications Inactive Administered Medications - up to 3 most recent administrations Medication Order MAR Action Action Date Dose Rate Site eimxapoa-ylvllhdsfv-yfchazdgds Given 11/06/2016 12:30 PM CDT 2 S prays (EXACTACAIN,CETACAINE) 2-2-14 % spray 1-2 [place] 1-2 [place], Topical, PRN WITH PROCEDURES, Pain, Starting on [...]
--- OUTSIDE RECORDS SUMMARY | 2022-04-17 16:48 | XMS_ITS | Encounter Summary ---
:1990 Author Organization [facility] Address [address] [place] [address] Care Team Providers Name Role Phone Unavailable Primary Care Provider Unavailable Reason for Visit Reason Onset Date Comments Refill 01/28/2017 OMEPRAZOLE Encounter Details Date Type Department Care Team Description 01/28/2017 Refill [facility] 435 Dex Bhat (OMEPRAZOLE) [facility] Lorrie M, SUPERVISOR PURIFICATION, TINNER HELPER [address] [place] [address] [place] [address] [phone] (Wo rk) Social History Tobacco Use Types [...] for Omeprazole 20mg has been approved through [employer]. Approval is granted for/until February 11, 2018 [...]
--- OUTSIDE RECORDS SUMMARY | 2022-04-17 16:48 | XMS_ITS | Encounter Summary ---
:1990 Author Organization [facility] Address [address] [place] [address] Care Team Providers Name Role Phone Unavailable Primary Care Provider Unavailable Reason for Referral Consult/Transfer Care (Routine) - Closed Specialty Diagnoses / Procedures Referred By Contact Refer red To Contact Diagnoses Encounter for long-term (current) [place] [address] [address] [facility] [place] [address] Referral ID Status Reason Start Date Expiration Date Visits Requ ested Visits Authorized [id number] Closed 03/19/2017 04/19/2017 1 1 Scheduling Instructions Your provider has recommended you to fol low up with your Primary Mold Filler And Drainer. If you are currently seeing a [facility] provider for your primary care needs, a private eye will contact you within the ma xt 3 business days to assist you in setting up this appointment. To schedule your ap pointment you may call [phone]. We suggest you call your [employer] about your coverage and benefits for this service. Encounter Details Date Type Department Care Team Description 03/19/2017 Refill Order [place] [facility] [place] Practice [address] [address] [address] [place] [address] [place] [address] [phone] Social History Tobacco Use Types Packs/Day Years [...] of this encounter Nursing Notes Interface, Out [employer] Prov Query - 03/19/2017 9:12 AM CDT [...] You can schedule your appointment online at [employer] or by calling the appointment center at the phone number listed above. Thank you for choosing [employer]. Lissy Renner RN [facility] Refill Center Nurses Powered by [employer], Reference: [id number], 03/19/2017 9:12:50 AM CDT, Pool: TAMEKA BATISTA RN ([id number]) documented in this encounter Plan of Treatment [...]
--- OUTSIDE RECORDS SUMMARY | 2022-04-17 16:48 | XMS_ITS | Encounter Summary ---
:1990 Author [facility] Address [address] [address] Care Team Providers Name Role Phone Unavailable [...] [address] Myopia of right eye; [place] [address] [place] Regular astigmatism of left eye [phone] Social History Tobacco Use Types Packs/Day Years [...]
--- OUTSIDE RECORDS SUMMARY | 2022-04-17 16:48 | XMS_ITS | Encounter Summary ---
:1990 Author Organization [facility] Address [address] [place] [address] Care Team Providers Name Role Phone Unavailable Primary Care Provider Unavailable Reason for Referral Dental (Routine) - Closed Specialty Diagnoses / Procedures Referred By Contact Refer red To Contact Diagnoses S/P skin biopsy Madison Kirk DDS [address] [place] [address] Referral ID Status Reason Start Date Expiration Date Visits Requ ested Visits Authorized [id number] Closed 06/04/2017 09/03/2018 1 1 Scheduling Instructions Your provider has recommended an appoint ment with an oral surgeon within [facility] Clinics. You may c all one of the clinics below to schedule an appointment. If you prefer, a medical scheduler will contact you within the next 3 business days to assist you in setting up this ap pointment. [place] - [phone] [facility] [phone] [place] [phone] Reason for Visit Reason Comments Dental Hygiene hot and cold sensitivity lr premolar area Encounter Details Date Type Department Care Team Description 06/04/2017 Office Visit [facility] Myranda Guido ental Hygiene (hot Dentistry I, RDH and cold sensitivity [address] [facility] lr premolar area) [place] [address] [phone] Social History Tobacco Use Types Packs/Day Years [...] encounter Patient Instructions Patient InstructionsMyranda Frankel I, [facility] - 06/04/2017 7:40 AM CDT Your next [...] Routine 1 Occurre nces EVALUATION starting 2019 [id number] Dental Procedures Routine 1 Oc currences starting [...] EXISTING SEALANT E1 Routine 08/23/2007 12:00 AM STUDENT SERVICES COUNSELOR 31 EXISTING SEALANT E1 Routine 08/23/2007 12:00 AM STUDENT SERVICES COUNSELOR 30 EXISTING SEALANT E1 Routine 08/23/2007 12:00 AM STUDENT SERVICES COUNSELOR 2 EXISTING SEALANT E1 Routine 08/23/2007 12:00 AM STUDENT SERVICES COUNSELOR 18 EXISTING SEALANT E1 Routine 08/23/2007 12:00 AM STUDENT SERVICES COUNSELOR 14 EXISTING SEALANT E1 Routine 08/23/2007 12:00 AM STUDENT SERVICES COUNSELOR 3 EXISTING SEALANT E1 Routine 08/23/2007 12:00 AM STUDENT SERVICES COUNSELOR 19 O EXISTING COMPOSITE Routine 08/23/2007 12:00 AM FILLING STUDENT SERVICES COUNSELOR documented in this encounter Visit Diagnoses Diagnosis [...]
--- OUTSIDE RECORDS SUMMARY | 2022-04-17 16:48 | XMS_ITS | Encounter Summary ---
:1990 Author Organization [facility] Address [address] [place] [address] Care Team Providers Name Role Phone Unavailable Primary Care Provider Unavailable Reason for Visit Reason Comments Refill fluticasone (FLONASE) 50 MCG /ACT nasal solution [Pharmacy Med Name: FLUTICASONE PROP 50 MCG SPRA Y] Encounter Details Date Type Department Care Team Description 03/19/2017 [facility] Marvin Alvarez, Quiana ll (fluticasone Practice SIGHTSEEING GUIDE, DNP (FLONASE) 50 MCG/ACT [address] [address] [address] nasal solution [place], [place] [address] [place] [address] [Pharmacy Med Name: [phone] (Wo rk) FLUTICASONE PROP 50 MCG SPRAY]) [...] due to: Already has an appt [facility] 03/26 Please route to: Care Team Bayron [...] into both nostrils daily. (unchanged) Powered by [employer], Reference: [id number], 03/19/2017 9:12:50 AM [place] REYES: TAMEKA BATISTA RN ([id number]) documented in this encounter Plan of Treatment Not on filedocumented as of this encounter Visit Diagnoses Not on filedocumented in this encounter
--- OUTSIDE RECORDS SUMMARY | 2022-04-17 16:48 | XMS_ITS | Encounter Summary ---
:1990 Author Organization [facility] Address [address] [place] [address] Care Team Providers Name Role Phone Victor [...] on filedocumented in this encounter Care Teams Electronic Design Engineer Relationship Specialty Start Date End Date Nemesio Rush PCP - General 11/22/[address] [place] [address] documented as of this encounter
--- OUTSIDE RECORDS SUMMARY | 2022-04-17 16:48 | XMS_ITS | Encounter Summary ---
:1990 Author Organization [facility] Address [address] [address] Care Team Providers Name Role Phone Unavailable Primary Care Provider Unavailable Reason for Visit Reason Comments Skin Check Encounter Details Date Type Department Care Team Description 07/09/2017 Office Visit Specialty Center Lexi Watkins Mult iple melanocytic nevi (Primary Dx); 401 Dermatology Clin ic MD Screening for malignant neoplasm of skin ; [address] [place] [address] [place], [place] [phone] [address] Social History Tobacco Use Types Packs/Day Years [...] needed for any new or changing growths. OARD INSTRUMENT REPAIRER documented in this encounter Progress Notes Lexi [...] history of melanoma: No. 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 OARD INSTRUMENT REPAIRER documented in this encounter Plan of Treatment Not on filedocumented as of this encounter Visit Diagnoses Diagnosis Multiple melanocytic nevi - Primary Screening for malignant neoplasm of skin Screening for malignant neoplasm of the skin Skin tag Unspecified hypertrophic and atrophic co ndition of skin documented in this encounter
--- OUTSIDE RECORDS SUMMARY | 2022-04-17 16:48 | XMS_ITS | Encounter Summary ---
:1990 [facility] Address [address] [address] Care Team Providers Name Role Phone Unavailable Primary Care Provider Unavailable Reason for Visit Reason Comments Ear Pain one week Encounter Details Date Type Department Care Team Description 07/30/2015 Office Visit Dayanara Dixon, Derik healy suppurative otitis media of right ear without spontaneous rupture of tympanic membrane, recurrence not specified (Primary Dx); Practice WARP TRUCKER, DNP Acute serous otitis media of left ear, r ecurrence not specified [address] [place] [address] [place] [address] (Wo rk) Social History Tobacco Use Types [...] Comments Blood Pressure 124/73 07/30/2015 8:16 AM CARPET REPAIRER Pulse 81 07/30/2015 8:16 AM CARPET REPAIRER Temperature 36.7 ??C (98.1 ??F) 07/30/2015 8:16 AM CARPET REPAIRER Respiratory Rate - - Oxygen Saturation - - Inhaled Oxygen Concentration - - Weight 74.8 kg (165 lb) 07/30/2015 8:16 AM CARPET REPAIRER Height - - Body Mass Index 30.42 05/10/2014 1:41 PM CDT documented in this encounter Patient Instructions Patient InstructionsDayanara Grubbs APRN, DNP - 07/30/2015 8:34 AM CARPET REPAIRER - Take the antibiotic twice daily with food for 10 days - Use Flonase, 1 spray each nostril, daily - If still experiencing decreased hearing, fullness, or ear pain after completing antibiotic, returnto clinic ET REPAIRER documented in this encounter Progress Notes Dayanara [...] Dayanara Grubbs APRN, DNP, 07/30/2015, 11:20 AM ET REPAIRER documented in this encounter Plan of Treatment Not on filedocumented as of this encounter Visit Diagnoses Diagnosis Acute suppurative otitis media of right ear without spontaneous rupture of tympanic membrane, recurrence not specified - [facility] Acute serous otitis media of left ear, r ecurrence not specified documented in this encounter
--- OUTSIDE RECORDS SUMMARY | 2022-04-17 16:48 | XMS_ITS | Encounter Summary ---
:1990 Author Organization [facility] Address [address] [place] [address] Care Team Providers Name Role Phone [facility], Clinician Primary Care Provider Unavailable Encounter Details Date Type Department Care Team Description 09/30/2016 Refill Order [facility] 435 Elaine Shultz MD [facility] [address] [address] [place] [address] [place] [address] [phone] Social History Tobacco Use Types Packs/Day Years [...] pt. [place] CMA 09/30/2016, 7:52 AM N ENGINEER documented in this encounter Plan of Treatment Not on filedocumented as of this encounter Visit Diagnoses Diagnosis Encounter for long-term (current) use of medications - Primary Encounter for long-term (current) use of other medications documented in this encounter Care Teams Wheat Inspector Relationship Specialty Start Date End Date Nemesio Rush PCP - General 11/22/18 [address] [place] [address] documented as of this encounter
--- OUTSIDE RECORDS SUMMARY | 2022-04-17 16:48 | XMS_ITS | Encounter Summary ---
:1990 Author [facility] Address [address] [place] [address] Care Team Providers Name Role Phone Unavailable Primary Care Provider Unavailable Encounter Details Date Type Department Care Team Description 08/10/2016 Lab Visit [facility] Gastroesophageal reflux [address] disease, [place] [address] not specified [phone] Social History Tobacco Use Types Packs/Day Years [...] Terri Knott, RN - 08/11/2016 3:52 PM FLOODPLAIN MANAGER Quick Note: Result letter mailed to patient. Terri Knott LPN 08/11/2016, 3:52 PM DPLAIN MANAGER Lorrie Bhat, RADIO REPAIRMAN, ROLLER HAND - 08/11/2016 2:37 PM FLOODPLAIN MANAGER Quick Note: H pylori stool test is negative. Please continue to follow the recommendations as discussed in the clinic. Lorrie Ferrari APRN, MATILDA DPLAIN MANAGER documented in this encounter Plan of Treatment Not on filedocumented as of this encounter Procedures Procedure Name Priority Date/Time Associated Diagnosis Comme nts H. PYLORI ANTIGEN Routine 08/10/2016 8:26 Gastroesophageal ref lux Results for this FECES AM FLOODPLAIN MANAGER disease, esophagitis procedu re are in presence not specified the r esults section. documented in this encounter Results H. Pylori Antigen Feces (08/10/2016 8:26 AM FLOODPLAIN MANAGER) Component Value Ref Test Analysis Performed At [facility] Range Method Time Signature H Pylori [facility] Result LABORATORIES H Pylori (NOTE) [facility] Result HELICOBACTER PYLORI AG, EIA, STOOL ?? LABORATORIES ?? MICRO NUMBER: ?[id number] TEST STATUS: ? FINAL SPECIMEN SOURCE: ?? STOOL SPECIMEN QUALITY: ??ADEQUATE RESULT: ?Not Detected ?Antimicrobials, proton pump in hibitors, and ?bismuth preparations inhibit H . pylori and ?ingestion up to two week s prior to testing may ?cause false negative results. If clinically ?indicated the test shoul d be repeated on a new ?specimen obtained two weeks after discontinuing ?treatment. Test performed at [facility] [address] ??[id number] Director: MELVA SOTO MD Specimen Anatomical Collection Method Collection Time Receive d Time (Source) Location / / Volume Laterality Stool specimen 08/10/2016 8:26 AM 017 8:30 (specimen) FLOODPLAIN MANAGER AM FLOODPLAIN MANAGER Lorrie Bower APRN, MATILDA LAB_1 Performing Organization Address City/State/ZIP Code Phon e Number [facility] [phone] documented in this encounter Visit Diagnoses Diagnosis Gastroesophageal reflux disease, esophag itis presence not specified documented in this encounter
--- OUTSIDE RECORDS SUMMARY | 2022-04-17 16:48 | XMS_ITS | Encounter Summary ---
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 (Primary Dx) [place] [address] Social History Tobacco Use Types Packs/Day Years [...]
--- OUTSIDE RECORDS SUMMARY | 2022-04-17 16:48 | XMS_ITS | Encounter Summary ---
:1990 Author Organization [facility] Address [address], [place] [address] Care Team Providers Name Role Phone Unavailable Primary Care Provider Unavailable Reason for Visit Reason Comments ROUTINE, FOLLOW-UP Encounter Details Date Type Department Care Team Description 05/25/2016 Office Visit Specialty Center Orlando Mckinley 401 Rheumatology MMD connective tissue disease Clinic [place] ([facility]) (Primary Dx) [address] [place] [address] Social History Tobacco Use Types [...] is had arthralgias never any synovitis. Serologically [place] but had slight elevations of sedimentation rate [...] MCG/ACT nasal solution Apply or instill 1 [place] into both nostrils daily. 16 g 11 [...]
--- OUTSIDE RECORDS SUMMARY | 2022-04-17 16:48 | XMS_ITS | Encounter Summary ---
:1990 Author Organization [facility] Address [address] [address] Care Team Providers Name Role Phone Unavailable Primary Care Provider Unavailable Reason for Referral Procedure/Equipment (Routine) - Closed Specialty Diagnoses / Procedures Referred By Contact Refer red To Contact Diagnoses Gastroesophageal reflux disease, esophagitis presence not specified Lorrie Bhat APRN, HEAVY MOBILE EQUIPMENT REPAIRER [address] [place] [address] Referral ID Status Reason Start Date Expiration Date Visits Requ ested Visits Authorized [id number] Closed 08/06/2016 11/05/2017 1 1 Scheduling Instructions Your provider has recommended an appoint ment with [facility]. You may call [phone] to schedule yo ur appointment. If you prefer, a scheduler conveyor will contact you within the next 3 in days to assist you in setting up this appointment. We suggest you call your [employer] insurance company about your coverage and benefits for this appointment. ENT CONSUMER MARKETER Reason for Visit Reason Comments Revisit Encounter Details Date Type Department Care Team Description 08/06/2016 [facility] Visit [facility] Mian Bhat oesophageal reflux [address] [facility] Lorrie Soto APRN, diseas e, esophagitis Clinic HEAVY MOBILE EQUIPMENT REPAIRER presence not specified [address] (Primary Dx) [place] [address] [place], [place] [phone] Social History Tobacco Use Types Packs/Day Years [...] Comments Blood Pressure 105/67 08/06/2016 8:37 AM PATIENT CONSUMER MARKETER Pulse 78 08/06/2016 8:37 AM PATIENT CONSUMER MARKETER Temperature 36.7 ??C (98 ??F) 08/06/2016 8:37 AM PATIENT CONSUMER MARKETER Respiratory Rate - - Oxygen Saturation - - Inhaled Oxygen Concentration - - Weight 83 kg (183 lb) 08/06/2016 8:37 AM PATIENT CONSUMER MARKETER Height 154.9 cm (5' 1) 08/06/2016 8:37 AM PATIENT CONSUMER MARKETER Body Mass Index 34.58 08/06/2016 8:37 AM PATIENT CONSUMER MARKETER documented in this encounter Patient Instructions Patient InstructionsLorrie Bhat APRN, MATILDA - 08/06/2016 9:03 AM PATIENT CONSUMER MARKETER Stop Zantac Start Omeprazole---a prescription was sent to your pharmacy Stool test--start Omeprazole after you collect stool specimen Upper endoscopy if H pylori negative and symptoms persist Your follow up appointment with Dr. Stone Palacio is scheduled for November 06 at 11:00 am. Nothing to eat or drink after midnight. Must have a catering driver to drive you home. Follow up Your follow up appointment with Lorrie Ferrari NP is scheduled for November 13 at 8:20 am. If you have any questions or concerns, please call [facility] at [phone]. Lorrie Ferrari APRN, HEAVY MOBILE EQUIPMENT REPAIRER ENT CONSUMER MARKETER documented in this encounter Progress Notes Lorrie [...] is single. 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 Pylori Antigen Feces (08/10/2016 8:26 AM PATIENT CONSUMER MARKETER) Component Value Ref Test Analysis Performed At [facility] Range Method Time Signature H Pylori [facility] Result LABORATORIES H Pylori (NOTE) [facility] Result HELICOBACTER PYLORI AG, EIA, STOOL ?? LABORATORIES ?? MICRO NUMBER: ?[id number] TEST STATUS: ? FINAL SPECIMEN SOURCE: ?? STOOL SPECIMEN QUALITY: ??ADEQUATE RESULT: ?Not Detected ?Antimicrobials, proton pump in hibitors, and ?bismuth preparations inhibit H . pylori and ?ingestion up to two week s prior to testing may ?cause false negative results. If clinically ?indicated the test shoul d be repeated on a new ?specimen obtained two weeks after discontinuing ?treatment. Test performed at [email or web address] [address], [place] ??[id number] Director: MELVA SOTO MD Specimen Anatomical Collection Method Collection Time Receive d Time (Source) Location / / Volume Laterality Stool specimen 08/10/2016 8:26 AM 017 8:30 (specimen) PATIENT CONSUMER MARKETER AM PATIENT CONSUMER MARKETER Lorrie Bower APRN, HEAVY MOBILE EQUIPMENT REPAIRER LAB_1 Performing Organization Address City/State/ZIP Code Phon e Number [facility] [phone] documented in this encounter Visit Diagnoses Diagnosis Gastroesophageal reflux disease, esophag itis presence not specified - Primary documented in this encounter
--- OUTSIDE RECORDS SUMMARY | 2022-04-17 16:48 | XMS_ITS | Encounter Summary ---
:1990 Author Organization [facility] Address [address], [place] [address] Care Team Providers Name Role Phone Unavailable Primary Care Provider Unavailable Reason for Visit Reason Comments Refill ranitidine Encounter Details Date Type Department Care Team Description 11/21/2016 Refill [facility] 435 Elaine Matute MD Refill (ranitidine) [facility] [address] [address] [facility] [place] [address] [place] [address] [phone] Social History Tobacco Use Types Packs/Day Years [...] at bedtime if needed (unchanged) Powered by [employer], Reference: [id number], 11/21/2016 5:42:30 PM CDT, Bayron: TAMEKA BATISTA RN ([id number]) documented in this encounter Plan of Treatment Not on filedocumented as of this encounter Visit Diagnoses Not on filedocumented in this encounter
--- OUTSIDE RECORDS SUMMARY | 2022-04-17 16:48 | XMS_ITS | Encounter Summary ---
:1990 Author Organization [facility] Address [address] [place] [address] Care Team Providers Name Role Phone Unavailable [...] [place] [address] [place] [address] [place], [place] [phone] Social History Tobacco Use Types Packs/Day Years [...]
--- OUTSIDE RECORDS SUMMARY | 2022-04-17 16:48 | XMS_ITS | Encounter Summary ---
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 [place] [address] [place], [place] [phone] Social History Tobacco Use Types Packs/Day Years [...] couple weeks Call with questions or concerns [phone] option #3. Lorrie Ferrari APRN, CNP documented [...] k/ul PMN/Band 69 % Lymph 24 % [place] 6 % Eos 1 % Baso 0 % PMN Absolute 5.9 1.8 - 7.7 k/ul Lymph Absolute 2.1 1.0 - 4.8 k/ul [place] Absolute 0.5 0.1 - 0.7 k/ul Eos [...]
--- OUTSIDE RECORDS SUMMARY | 2022-04-17 16:48 | XMS_ITS | Encounter Summary ---
:1990 Author Organization [facility] Address [address] [place] [address] Care Team Providers Name Role Phone Unavailable Primary Care Provider Unavailable Reason for Visit Reason Comments Refill ranitidine (ZANTAC) 150 MG t ablet [Pharmacy Med Name: RANITIDINE 150 MG TABLET] Encounter Details Date Type Department Care Team Description 04/07/2016 [facility]ill [facility] 435 Elaine Shultz MD Refill (ranitidine [facility] [address] [address] SALDANA (ZANTAC) 150 MG tablet [address] [place] [address] [Pharmacy Med Name: [place] [address] RANITIDINE 150 MG [phone] TABLET]) Social History Tobacco Use Types Packs/Day [...] standing order Zandra Bartholomew RN Interface, Out [employer] Query - 04/07/2016 1:26 PM CDT ranitidine [...] at bedtime if needed (changed) Powered by [employer], Reference: [id number], 04/07/2016 1:26:12 PM CDT, Pool: TAMEKA BATISTA RN ([id number]) documented in this encounter Plan of Treatment Not on filedocumented as of this encounter Visit Diagnoses Not on filedocumented in this encounter
--- OUTSIDE RECORDS SUMMARY | 2022-04-17 16:48 | XMS_ITS | Encounter Summary ---
:1990 Author Organization [facility] Address [address], [place] [address] Care Team Providers Name Role Phone Unavailable [...] [address] tablet [Pharmacy Med Name: [place] [address] [place] HYDROXYCHLOROQUINE 200 MG [phone] TAB]) Social History Tobacco Use Types Packs/Day [...] call. Awaiting return call. Shikha Son LPN Ladi Linton MD - 02/27/2016 10:35 [...] a day. (changed but equivalent) Powered by [employer] (formerly [employer]), Reference: [id number], 02/27/2016 1:15:49 AM CDT, Pool: Leslietremaine Montiel ([id number]) documented in this encounter Plan of Treatment Not on filedocumented as of this encounter Visit Diagnoses Not on filedocumented in this encounter
--- OUTSIDE RECORDS SUMMARY | 2022-04-17 16:48 | XMS_ITS | Encounter Summary ---
:1990 Author Organization [facility] Address [address] [address] Care Team Providers Name Role Phone Unavailable Primary Care Provider Unavailable Reason for Visit Reason Comments ROUTINE HEALTH MAINTENANCE Encounter Details Date Type Department Care Team Description 03/26/2017 Office Visit [facility] Chaya Bautista P [facility] (Primary Dx); Obstetrics and MD Family planning, subdermal contraceptive checking/reinsertion/removal Gynecology [address] [address] [place] [phone] Social History Tobacco Use Types Packs/Day Years [...] can you learn more? 1. Go to WeWork/Wandera or XYverify/Stamplay. 2. Enter F276 in the search box. Current as of: October 15, 2016 Content Version: 11.3 ?? [phone] [employer], Industry Dive. Well Visit, Ages 18 to 50: Care [...] you are older than 45 and are -Citizen Of [place] or have a father or brother who got prostatecancer when he was younger than 65. When should you call for help? Watch closely for changes in your health, and be sure to contact your doctor if you have any problems or symptoms that concern you. Where can you learn more? 1. Go to WeWork/Wandera or XYverify/Todacelllibrary. 2. Enter P072 in the search box. Current as of: February 18, 2016 Content Version: 11.3 ?? [phone] [employer], Incorporated. After insertion of Nexplanon, you might [...] you wish. Please call your clinic at [facility] Obstetrics And Gynecology [address] [place], [place] [address] Dept: [phone] Loc: [phone] if you notice signs of infection or [...] Component Value Ref Test Analysis Performed At [facility] [employer] Range Method Time Signature HPV RESULT Negative NEG [facility] Comments (NOTE) [facility] The Jennifer HPV Test is a qualitative [...] developed and its performance characteristics determined by [facility]. ??It has not been cleared or approved [...] PM 7 4:01 CDT PM CDT Narrative [facility] - 04/09/2017 8:20 AM C DT Performed at [facility] , [address] [place] [address] Chaya Bautista MD LAB_1 Performing Organization Address City/State/ZIP Code Phon e Number [facility] [phone] Pap Test, Routine (03/26/2017 3:58 PM CDT) Component Value Ref Test Analysis Performed At [facility] [employer] Method Time Signature Cytology, (NOTE) [facility] Pap Product Development Scientist Cytology Report LABORATORI ES Patient Name: JULIETTE [...] ?? Microscopic Description Microscopic examination is performed. [facility] Department of Pathology [address] [place] [id number] Specimen Anatomical Collection Method Collection Time Receive d Time (Source) Location / / Volume Laterality 03/26/2017 3:58 PM 7 CDT 12:00 PM CDT Chaya Bautista MD LAB_1 Performing Organization Address City/State/ZIP Code Phon e Number [facility] [phone] documented in this encounter Visit Diagnoses Diagnosis [...]
--- OUTSIDE RECORDS SUMMARY | 2022-04-17 16:48 | XMS_ITS | Encounter Summary ---
:1990 Author Organization [facility] Address [address] [place] [address] Care Team Providers Name Role Phone [facility], Clinician Primary Care Provider Unavailable Encounter Details Date Type Department Care Team Description 07/02/2016 Refill [facility] 435 Elaine Shultz MD [facility] [address] [address] [place] [address] [place] [address] [phone] Social History Tobacco Use Types Packs/Day Years [...] pt. [place] CMA 07/02/2016, 8:40 AM LOPMENTAL WRITING INSTRUCTOR documented in this encounter Plan of Treatment Not on filedocumented as of this encounter Visit Diagnoses Diagnosis Encounter for long-term (current) use of medications - Primary Encounter for long-term (current) use of other medications documented in this encounter Care Teams Graphic Production Artist Relationship Specialty Start Date End Date Nemesio Rush PCP - General 11/22/[address] [place] [address] documented as of this encounter
--- OUTSIDE RECORDS SUMMARY | 2022-04-17 16:48 | XMS_ITS | Encounter Summary ---
:1990 Author Organization [facility] Address [address], [place] [address] Care Team Providers Name Role Phone Unavailable Primary Care Provider Unavailable Reason for Visit Reason Comments Revisit SHOT,FLU Encounter Details Date Type Department Care Team Description 04/19/2017 Office Visit [facility] Orlando Mckinley ferentiated connective tissue disease (HRC) (Primary Dx); 401 Rheumatology MD Charles Encounter for immunization Clinic [address] [place] [address] Social History Tobacco Use Types [...] (ABNORMAL) C-Reactive Protein (04/19/2017 8:54 AM CDT) [facility] Method Time Signature C-Reactive 1.2 (H) 0.0 - 0.7 [facility] Protein mg/dL LABORATORIES Comment: Note: results are expressed in mg/dL. Specimen Anatomical Collection Method Collection Time Receive d Time (Source) Location / / Volume Laterality 04/19/2017 8:54 AM 7 8:57 CDT AM CDT Narrative [facility] - 04/19/2017 12:48 PM CDT Performed at [address] ??[address] Orlando Mckinley MD LAB_1 Performing Organization Address City/[facility] Code Phon e Number [facility] [phone] (ABNORMAL) ESR (04/19/2017 8:54 AM CDT) athologist Signature ESR 42 (H) 0 - 20 [facility] mm/hr Specimen Anatomical Collection Method Collection Time Receive d Time (Source) Location / / Volume Laterality 04/19/2017 8:54 AM 7 8:57 CDT AM CDT Narrative [facility] - 04/19/2017 3:14 PM C DT Performed at [facility], [address] [place] [address] ??[address] Orlando Mckinley MD LAB_1 Performing Organization Address City/[facility]/ZIP Code Phon e Number [facility] [phone] (ABNORMAL) UA Micro If (04/19/2017 8:54 AM CDT) [facility] Method Time Signature Urine Color Yellow [...] City/State/ZIP Code Phon e Number [facility] [phone] Creatinine / GFR (04/19/2017 8:54 AM CDT) [...] - 04/19/2017 12:48 PM CDT Performed at [facility], [address] [place] [address] ??[address] Orlando Mckinley MD LAB_1 Performing Organization Address City/State/ZIP Code Phon e Number [facility] [phone] Complete Blood Count-No Diff (04/19/2017 8:54 AM [...] 04/19/2017 1:12 PM C DT Performed at [facility], [address] [place] [address] ??[address] Orlando Mckinley MD LAB_1 Performing Organization Address City/State/ZIP Code Phon e Number [facility] [phone] documented in this encounter Visit Diagnoses Diagnosis Undifferentiated connective tissue disea se (HRC) - Primary Unspecified diffuse connective tissue di sease Encounter for immunization Need for other specified prophylactic va ccination against single bacterial disease Undifferentiated connective tissue disea se (HRC) Unspecified diffuse connective tissue di sease documented in this encounter
--- OUTSIDE RECORDS SUMMARY | 2022-04-17 16:48 | XMS_ITS | Encounter Summary ---
:1990 Author Organization [facility] Address [address] [place] [address] Care Team Providers Name Role Phone Unavailable Primary Care Provider Unavailable Encounter Details Date Type Department Care Team Description 02/27/2016 Notes/Orders [facility] Elaine Shultz, En counter for 401 Rheumatology long-term (current) Clinic [address] [address] use of medications [address] (Primary Dx) [place] [address] [place], [place] [phone] Social History Tobacco Use Types Packs/Day Years [...] - NEXT LAB APPOINTMENT: None Powered by [employer], Reference: [id number], 02/27/2016 1:15:49 AM CDT, Pool: Leslie Zendejasvladimir Montiel ([id number]) PROCESSING TECHNICIAN documented in this encounter Plan of Treatment Not on filedocumented as of this encounter Visit Diagnoses Diagnosis Encounter for long-term (current) use of medications - Primary Encounter for long-term (current) use of other medications documented in this encounter
--- OUTSIDE RECORDS SUMMARY | 2022-04-17 16:48 | XMS_ITS | Encounter Summary ---
:1990 Author Organization [facility] Address [address], [place] [address] Care Team Providers Name Role Phone Unavailable Primary Care Provider Unavailable Reason for Visit Reason Comments Refill fluticasone (FLONASE) 50 MCG /ACT nasal solution Encounter Details Date Type Department Care Team Description 09/28/2017 Refill [place] Eduarda Guy MD Refill (fluticasone Practice [address] (FLONASE) 50 MCG/ACT [address] [place] [address] nasal solution ) [place] [address] [phone] Social History Tobacco Use Types Packs/Day Years [...] remove pended medication. Thank you, Sandra Ortega R WINDER Sandra Ortega - 09/29/2017 3:40 PM CST Medication Refill - Overdue Visit Called patient, was: Unable to reach patient 1st call attempted. Left message to call back. Sandra Ortega R WINDER Indira Gomez RN - 09/29/2017 2:28 PM CST Further Assistance Needed on Refill from Operations Examiner Patient is overdue for Office visit. A qualifying visit was not found within the last 2 years. Please call patient to schedule a Office Visit and document using .MIKAL. After attempting to schedule patient: Indira Gomez RN 09/29/2017, 2:28 PM Please route to: Clinician/Care Team Bayron R WINDER Caden, Matti Choiscriadam Prov Query - 09/28/2017 [...] into both nostrils daily. (unchanged) Powered by [employer], Reference: [id number], 09/28/2017 11:45:41 AM PAPER WINDER, Pool: TAMEKA BATISTA RN ([id number]) R WINDER documented in this encounter Plan of Treatment Not on filedocumented as of this encounter Visit Diagnoses Not on filedocumented in this encounter
--- OUTSIDE RECORDS SUMMARY | 2022-04-17 16:48 | XMS_ITS | Encounter Summary ---
:1990 Author Organization [facility] Address [address], [place] [address] Care Team Providers Name Role Phone Unavailable Primary Care Provider Unavailable Reason for Visit Reason Comments Refill hydroxychloroquine (PLAQUENI L) 200 MG tablet [Pharmacy Med Name: HYDROXYCHLOROQUINE 200 MG TA B] Encounter Details Date Type Department Care Team Description 06/04/2016 [facility]ill [facility] 401 Orlando Mckinley (hydroxychloroquine Rheumatology Clinic MD Charles (PLAQUENIL) 200 MG tablet 401 [facility] [Pharmacy Med Name: [place] [address] HYDROXYCHLOROQUINE 200 MG [phone] TAB]) Social History Tobacco Use Types Packs/Day [...] tab by mouth daily. (changed) Powered by [employer], Reference: [id number], 06/04/2016 5:46:21 PM CDT, Pool: Arlen Perry Care Team ([id number]) documented in this encounter Plan of Treatment Not on filedocumented as of this encounter Visit Diagnoses Not on filedocumented in this encounter
--- OUTSIDE RECORDS SUMMARY | 2022-04-17 16:48 | XMS_ITS | Encounter Summary ---
:[address] [facility] [facility] Address [address] [address] Care Team Providers Name Role Phone Unavailable Primary Care Provider Unavailable Reason for Visit Reason Comments Refill Encounter Details Date Type Department Care Team Description 09/03/2015 Refill [facility] 401 Juan Ramon Cole MD Refill Rheumatology Clinic [address] [place] [address] [place] [address] [phone] Social History Tobacco Use Types Packs/Day Years [...] two times a day. (unchanged) Powered by [employer], Reference: [id number], 09/03/2015 1:06:26 PM Bayron BRYANT: Kelsey Sandoval Care Team ([id number]) TTE documented in this encounter Plan of Treatment Not on filedocumented as of this encounter Visit Diagnoses Not on filedocumented in this encounter
--- OUTSIDE RECORDS SUMMARY | 2022-04-17 16:48 | XMS_ITS | Encounter Summary ---
:1990 Author Organization [email or web address] Address [address] [place] [address] Care Team Providers Name Role Phone Unavailable Primary Care Provider Unavailable Encounter Details Date Type Department Care Team Description 04/19/[address] [facility] Orlando Lester MD [address] [place], [place] [address] Social History Tobacco Use Types [...]
--- OUTSIDE RECORDS SUMMARY | 2022-04-17 16:49 | XMS_ITS | Encounter Summary ---
:1990 Author Organization [facility] Address [address] [place] [address] Care Team Providers Name Role Phone Unavailable [...] Optometry Orlando Mckinley M D [facility] [address] [place] [address] Phone: Fax: Referral ID Status Reason Start Date Expiration Date Visits Requ ested Visits Authorized [id number] Closed 01/31/2015 05/01/2016 1 1 Encounter Details Date Type Department Care Team Description 03/29/2015 Office Visit [facility] Tony Travis, Unspec ified inflammatory polyarthropathy (Primary Dx); 401 Optometry Clinic OD Encounter for long-term (current) use of other medications [address] [place] [address] [place], [place] [phone] Social History Tobacco Use Types Packs/Day Years [...]
--- OUTSIDE RECORDS SUMMARY | 2022-04-17 16:49 | XMS_ITS | Encounter Summary ---
:1990 Author Organization [facility] Address [address] [place] [address] Care Team Providers Name Role Phone Unavailable Primary Care Provider Unavailable Reason for Visit Reason Comments Encounter Details Date Type Department Care Team Description 02/04/2015 Telephone Specialty Center 401 Orlando Mckinley MD Rheumatology Clinic [address] [place] [address] Social History Tobacco Use Types Packs/Day Years [...]
--- OUTSIDE RECORDS SUMMARY | 2022-04-17 16:49 | XMS_ITS | Encounter Summary ---
:1990 Author Organization [facility] Address [address] [place] [address] Care Team Providers Name Role Phone Unavailable Primary Care Provider Unavailable Encounter Details Date Type Department Care Team Description 01/31/2015 Orders Only Specialty Center Laboratory Arthralgia [address] [place] [address] Social History Tobacco Use Types [...] 02/04/2015 2:05 PM C DT Performed at [facility], [address] [place] [address] ??[phone] Orlando Mckinley MD LAB_1 Performing Organization Address City[facility] Code Phon e Number [facility] [phone] RHEUMATOID FACTOR, QUANT (01/31/2015 8:38 AM CDT) athologist Signature Quant. Rheum. <9 0 - 11 [facility] Factor IU/ml [facility] Specimen Anatomical Collection Method Collection Time Receive d Time (Source) Location / / Volume Laterality 01/31/2015 8:38 AM 5 8:43 CDT AM CDT Narrative [facility] - 01/31/2015 1:19 PM C DT Performed at [facility], [address] [place] [address] ??[phone] Orlando Mckinley MD LAB_1 Performing Organization Address City/State/ZIP Code Phon e Number [facility] [phone] TSH, SENSITIVE with FT4, FT3 (if needed) (01/31/2015 8:38 AM CDT) athologist Signature TSH, with 2.293 0.300 - [facility] Reflex 5.000 [facility] uIU/ml Specimen Anatomical Collection Method Collection Time Receive d Time (Source) Location / / Volume Laterality 01/31/2015 8:38 AM 5 8:43 CDT AM CDT Narrative [facility] - 01/31/2015 1:31 PM C DT Performed at [facility], [address] [place] [address] ??[phone] Orlando Mckinley MD LAB_1 Performing Organization Address [facility] [place] Phon e Number [facility] [phone] C-REACTIVE PROTEIN (01/31/2015 8:38 AM CDT) athologist Signature C-Reactive 0.8 0.0 - 0.9 [facility] Protein mg/dl [facility] Comment: Note: results are expressed in mg/dL. Specimen Anatomical Collection Method Collection Time Receive d Time (Source) Location / / Volume Laterality 01/31/2015 8:38 AM 5 8:43 CDT AM CDT Narrative [facility] - 01/31/2015 1:19 PM C DT Performed at [facility], [address] [place] [address] ??[phone] Orlando Mckinley MD LAB_1 Performing Organization Address [facility] [place] Phon e Number [facility] [phone] (ABNORMAL) ESR (01/31/2015 8:38 AM CDT) athologist Signature ESR 33 (H) 0 - 20 [facility] mm/hr Specimen Anatomical Collection Method Collection Time Receive d Time (Source) Location / / Volume Laterality 01/31/2015 8:38 AM 5 8:43 CDT AM CDT Narrative [facility] - 01/31/2015 2:59 PM C DT Performed at [facility], [address] [place] [address] ??[phone] Orlando Mckinley MD LAB_1 Performing Organization Address [facility] [place] Phon e Number [facility] [phone] documented in this encounter Visit Diagnoses Diagnosis Arthralgia Pain in joint, site unspecified documented in this encounter
--- OUTSIDE RECORDS SUMMARY | 2022-04-17 16:49 | XMS_ITS | Encounter Summary ---
:1990 Author Organization [facility] Address [address] [address] Care Team Providers Name Role Phone Unavailable Primary Care Provider Unavailable Reason for Visit Reason Comments Follow-up, NOS IMMUNIZATIONS Encounter Details Date Type Department Care Team Description 05/10/2014 Office Visit Specialty Center Orlando Mckinley for immunization (Primary Dx); 401 Rheumatology MD Charles Unspecified inflammatory polyarthropathy Clinic [place] 401 [facility] [place] [address] Social History Tobacco Use Types [...]
--- OUTSIDE RECORDS SUMMARY | 2022-04-17 16:49 | XMS_ITS | Encounter Summary ---
:1990 Author Organization [facility] Address [address] [place] [address] Care Team Providers Name Role Phone Unavailable Primary Care Provider Unavailable Reason for Referral Procedure/Equipment (Routine) - Closed Specialty Diagnoses / Procedures Referred By Contact Refer red To Contact Caio Bhat APRN, CNP [address] [place] [address] Referral ID Status Reason Start Date Expiration Date Visits Requ ested Visits Authorized [id number] Closed 05/01/2014 07/31/2015 1 1 Scheduling Instructions Your provider [facility]. You may call [phone] to schedule yo ur appointment. If you prefer, a production planner scheduler will contact you within the next 3 busin ess days to assist you in setting up this appointment. Reason for Visit Reason Onset Date Comments RESULTS, TEST 04/26/2014 Encounter Details Date Type Department Care Team Description 04/26/2014 Telephone [facility] Oma Jaramillo RESULTS, TEST [facility] CISCO Soto C[facility] [address] [place] [address] [place] [address] [phone] (Wo rk) Social History Tobacco Use Types [...] would you like it filled at our [facility]??? pharmacy? no [Rotoprinter/Appt Center: Was the pharmacy entered into the Preferred Pharmacy field? Yes] Is it okay to leave detailed message on your voicemail? [phone] [Rotoprinter/Appt Center: If this call is after 3 p.m., communicate to patient: If we are not able to get back to you by the end of the day and your symptoms worsen please contact the Careline] [Rotoprinter: Inform patient that if they are active [...]
--- OUTSIDE RECORDS SUMMARY | 2022-04-17 16:49 | XMS_ITS | Encounter Summary ---
:1990 Author Organization [facility] Address [address] [address] Care Team Providers Name Role Phone Unavailable Primary Care Provider Unavailable Reason for Visit Reason Comments Refill Encounter Details Date Type Department Care Team Description 03/18/2015 Refill [facility] 435 ZoeyOma Jackson, Refill [facility] SOAP GRINDER, TECHNICAL OPERATIONS SPECIALIST [address] [place] [address] [place] [address] [phone] (Wo rk) Social History Tobacco Use Types [...]
--- OUTSIDE RECORDS SUMMARY | 2022-04-17 16:49 | XMS_ITS | Encounter Summary ---
:1990 Author [facility] Address [address] [address] Care Team Providers Name Role Phone Unavailable Primary Care Provider Unavailable Reason for Visit Reason Comments Refill Encounter Details Date Type Department Care Team Description 05/27/2015 Refill [facility] 401 Juan Ramon Cole MD Refill Rheumatology Clinic [address] [place] [address] [place] [address] [phone] Social History Tobacco Use Types Packs/Day Years [...] two times a day. (unchanged) Powered by [employer], Reference: [id number], 05/27/2015 1:08:20 AM CDT, Pool: Kelsey Sandoval [facility] Team ([id number]) documented in this encounter Plan of Treatment Not on filedocumented as of this encounter Visit Diagnoses Not on filedocumented in this encounter
--- OUTSIDE RECORDS SUMMARY | 2022-04-17 16:49 | XMS_ITS | Encounter Summary ---
:1990 Author Organization [facility] Address [address], [place] [address] Care Team Providers Name Role Phone Unavailable Primary Care Provider Unavailable Reason for Referral Consult/Transfer Care (Routine) - Closed Specialty Diagnoses / Procedures Referred By Contact Refer red To Contact Orlando Mckinley M D [place] Referral ID Status Reason Start Date Expiration Date Visits Requ ested Visits Authorized [id number] Closed 03/05/2014 06/04/2015 1 1 Scheduling Instructions Your provider has recommended an appoint ment with [facility]. You may call [phone] to schedule yo ur appointment. If you prefer, a home care scheduler will contact you within the next 3 in days to assist you in setting up this appointment. Reason for Visit Reason Comments ROUTINE, FOLLOW-UP Encounter Details Date Type Department Care Team Description 03/05/2014 Office Visit Specialty Center Orlando Mckinley ferentiated 401 Rheumatology MD Charles connective tissue disease Clinic [place] (Primary Dx) [address] [place] [address] Social History Tobacco Use Types [...] Name Type Priority Associated Diagnoses [facility] Referral Routine Ordered: CONSULT-ADULTS documented as of this encounter Visit Diagnoses Diagnosis Undifferentiated connective tissue disea se (HRC) - Primary Unspecified diffuse connective tissue di sease documented in this encounter
--- OUTSIDE RECORDS SUMMARY | 2022-04-17 16:49 | XMS_ITS | Encounter Summary ---
:1990 Author Organization [facility] Address [address] [place] [address] Care Team Providers Name Role Phone Unavailable Primary Care Provider Unavailable Reason for Visit Procedure/Equipment (Routine) - Closed Specialty Diagnoses / Procedures Referred By Contact Refer red To Contact Lorrie Bhat APRN, CNP [address] [place] [address] Referral ID Status Reason Start Date Expiration Date Visits Requ ested Visits Authorized [id number] Closed 05/01/2014 07/31/2015 1 1 Encounter Details Date Type Department Care Team Description 05/28/2014 Procedure Visit [facility] Specialty Christina Palacio, Center Gastroenter[facility] tomer AKINS [address] [facility] [address] [place] [address] [address] [place], [place] [address] Social History Tobacco Use [...] . documented in this encounter Results COLONOSCOPY [[id number]] (05/28/2014 3:47 PM CDT) Specimen (Source) Anatomical [...] Code(s): ?? --- Professional - -- ? 09878, Co lonoscopy, flexible, proximal to splenic ? flexure; with biopsy, single or multiple Diagnosis Code(s): ?? --- Professional - -- ? 787.91, D iarrhea CPT copyright 2013 [employer]. All rights reserved. The codes documented in this report are preliminary and upon automotive window tinter review may be revised to meet current [...] iously scheduled. Procedure Code(s): --- Professional --- 36803, Colonoscopy, flexible, proximal to splenic flexure; with biopsy, single or multipl e Diagnosis Code(s): --- Professional --- 787.91, Diarrhea CPT copyright 2013 [employer]. All rights reserved. The codes documented in this report are preliminary and upon automotive window tinter review may be revised to meet current complianc e requirements. Attending Participation: Stone Palacio MD 05/28/2014 4:16 PM Number of Addenda: 0 Note Initiated On: 05/28/2014 3:47 PM Stone Palacio MD DIGESTIVE CARE Performing Organization Address City/State/ZIP Code Phon e Number GI (PROVATION) GI (PROVATION) [place], [place] Surgical Path - Colonoscopy (05/28/2014 7:00 AM CDT) [facility] gist Method Time Signature Histology (NOTE) [facility] Final Report [facility] Patient Name: JULIETTE GAMING Taken: 05/28/2014 Received: 05/28/2014 Reported: 05/29/2014 Physician(s): STONE PALACIO ([id number]) ? Final Pathologic Diagnosis A. Terminal ileum, biopsy -- No diagnostic abnormality B. Colon, random, biopsy -- No diagnostic abnormality Electronically Signed Out By ? Libra Oscar MD ??([id number] ) Procedures/Addenda Clinical History Diarrhea Gross Description [...] two slides. ?? ejaa/05/29/2014 Libra Oscar MD ??([id number] ) [facility] Department of Pathology [address] [place] [address] ??[id number] Specimen Anatomical Collection Method Collection Time Receive d Time (Source) Location / / Volume Laterality COLON STRUCTURE / 05/28/2014 7:00 AM 05/03 6:19 Unknown CDT PM CDT COLON STRUCTURE / 05/28/2014 7:00 AM 05/03 6:19 Unknown CDT PM CDT Stone Palacio MD LAB_1 Performing Organization Address City/State/ZIP Code Phon e Number [address] [address] documented in this encounter Visit Diagnoses Diagnosis Screen for colon cancer - Primary Special screening for malignant neoplasm s, colon documented in this encounter
--- OUTSIDE RECORDS SUMMARY | 2022-04-17 16:49 | XMS_ITS | Encounter Summary ---
:1990 Author Organization [facility] Address [address] [place] [address] Care Team Providers Name Role Phone Unavailable Primary Care Provider Unavailable Reason for Referral Consult/Transfer Care (Routine) - Closed Specialty Diagnoses / Procedures Referred By Contact Refer red To Contact Optometry Orlando Mckinley M D Aw Optometry [address] [place] [address] Phone: Fax: Referral ID Status Reason Start Date Expiration Date Visits Requ ested Visits Authorized [id number] Closed 01/31/2015 05/01/2016 1 1 Scheduling Instructions Your provider [facility]. You may call [phone] to schedule your a ppointment. If you prefer, a zig zag stitcher will contact you within the next 3 business d ays to assist you in setting up this appointment. Reason for Visit Reason Comments Revisit Encounter Details Date Type Department Care Team Description 01/31/2015 Office Visit [facility] 401 Orlando Mckinley rthralgia (Primary Rheumatology Clinic MD Charles Dx) [address] [place] [address] Social History Tobacco Use Types Packs/Day Years [...] 02/04/2015 2:05 PM C DT Performed at [facility], [address] [place] [address] ??[phone] Orlando Mckinley MD LAB_1 Performing Organization Address City/[facility] Code Phon e Number [facility] [phone] RHEUMATOID FACTOR, QUANT (01/31/2015 8:38 AM CDT) athologist Signature Quant. Rheum. <9 0 - 11 [facility] Factor IU/ml [facility] Specimen Anatomical Collection Method Collection Time Receive d Time (Source) Location / / Volume Laterality 01/31/2015 8:38 AM 5 8:43 CDT AM CDT Narrative [facility] - 01/31/2015 1:19 PM C DT Performed at [facility], [address] [place] [address] ??[address] Orlando Mckinley MD LAB_1 Performing Organization Address City/[facility]/ZIP Code Phon e Number [facility] [phone] TSH, SENSITIVE with FT4, FT3 (if needed) (01/31/2015 8:38 AM CDT) athologist [facility] TSH, with 2.293 0.300 - [facility] Reflex 5.000 [facility] uIU/ml Specimen Anatomical Collection Method Collection Time Receive d Time (Source) Location / / Volume Laterality 01/31/2015 8:38 AM 5 8:43 CDT AM CDT Narrative [facility] - 01/31/2015 1:31 PM C DT Performed at [facility], [address] [place] [address] ??[phone] Orlando Mckinley MD LAB_1 Performing Organization Address City/[facility] Phon e Number [facility] [phone] C-REACTIVE PROTEIN (01/31/2015 8:38 AM CDT) [place] C-Reactive 0.8 0.0 - 0.9 [facility] Protein mg/dl [facility] Comment: Note: results are expressed in mg/dL. Specimen Anatomical Collection Method Collection Time Receive d Time (Source) Location / / Volume Laterality 01/31/2015 8:38 AM 5 8:43 CDT AM CDT Narrative [facility] - 01/31/2015 1:19 PM C DT Performed at [facility], [address] [place] [address] ??[phone] Orlando Mckinley MD LAB_1 Performing Organization Address [facility] Phon e Number [facility] [phone] (ABNORMAL) ESR (01/31/2015 8:38 AM CDT) athologist [facility] ESR 33 (H) 0 - 20 [facility] mm/hr Specimen Anatomical Collection Method Collection Time Receive d Time (Source) Location / / Volume Laterality 01/31/2015 8:38 AM 5 8:43 CDT AM CDT Narrative [facility] - 01/31/2015 2:59 PM C DT Performed at [facility], [address] [place] [address] ??[phone] Orlando Mckinley MD LAB_1 Performing Organization Address [facility] Phon e Number [facility] [phone] documented in this encounter Visit Diagnoses Diagnosis Arthralgia - Primary Pain in joint, site unspecified Arthralgia Pain in joint, site unspecified documented in this encounter
--- OUTSIDE RECORDS SUMMARY | 2022-04-17 16:49 | XMS_ITS | Encounter Summary ---
:1990 Author Organization [facility] Address [address] [place] [address] Care Team Providers Name Role Phone Victor [...] on filedocumented in this encounter Care Teams Advanced Nursing Professor Relationship Specialty Start Date End Date Nemesio Rush PCP - General 11/22/[address] [place] [address] documented as of this encounter
--- OUTSIDE RECORDS SUMMARY | 2022-04-17 16:49 | XMS_ITS | Encounter Summary ---
:1990 Author [facility] Address [address], [place] [address] Care Team Providers Name Role Phone Unavailable Primary Care Provider Unavailable Reason for Visit Reason Comments CONSULT Nexplanon Encounter Details Date Type Department Care Team Description 04/05/2014 Office Visit [facility] Chaya Armando I nsertion of Obstetrics and MD implantable subdermal Gynecology [address] [address] contraceptive (Primary [address] [place], [place] Dx) [place] [address] [phone] Social History Tobacco Use Types Packs/Day Years [...] Armando MD - 04/05/2014 12:58 PM CDT ADVERTISING COPY WRITER Office Note Chief Complaint: Discuss control SUBJECTIVE: [...] for a follow up visit. Lot number [id number] Chaya Armando MD documented in this encounter Plan of Treatment Not on filedocumented as of this encounter Visit Diagnoses Diagnosis Insertion of implantable subdermal contr aceptive - Primary documented in this encounter
--- OUTSIDE RECORDS SUMMARY | 2022-04-17 16:49 | XMS_ITS | Encounter Summary ---
:1990 Author [facility] Address [address], [place] [address] Care Team Providers Name Role Phone Unavailable Primary Care Provider Unavailable Reason for Visit Reason Comments Refill Encounter Details Date Type Department Care Team Description 10/06/2014 Refill [facility] [address] Jackson, Refill [facility] HAND DRILLER, BUSINESS PROCESS LEAD [address] [place] [address] [place] [address] [phone] (Wo rk) Social History Tobacco Use Types [...]
--- OUTSIDE RECORDS SUMMARY | 2022-04-17 16:49 | XMS_ITS | Encounter Summary ---
:1990 [facility] Address [address] [place] [address] Care Team Providers Name Role Phone Unavailable Primary Care Provider Unavailable Reason for Visit Consult/Transfer Care (Routine) - Closed Specialty Diagnoses / Procedures Referred By Contact Refer red To Contact Optometry Orlando Mckinley M D Aw Optometry [place] [address] [place] [address] Phone: Fax: Referral ID Status Reason Start Date Expiration Date Visits Requ ested Visits Authorized [id number] Closed 01/31/2015 05/01/2016 1 1 Encounter Details Date Type Department Care Team Description 03/29/2015 Office Visit Specialty Center [address] unter for long-term Ophthalmology Clinic (current) use of other [address] medications (Primary Dx) [place], [place] [phone] Social History Tobacco Use Types Packs/Day Years [...] Name Type Priority Associated Diagnoses Order S [facility] OPTHALMOLOGY Referral Routine Ordered: 2014 documented as of this encounter Visit Diagnoses Diagnosis Encounter for long-term (current) use of other medications - Primary documented in this encounter
--- OUTSIDE RECORDS SUMMARY | 2022-04-17 16:49 | XMS_ITS | Encounter Summary ---
:1990 Author Organization [facility] Address [address] [place] [address] Care Team Providers Name Role Phone Victor Manuel Clinician Primary Care Provider Unavailable Encounter Details Date Type Department Care Team Description 08/26/2014 Emergency Room External to [facility], Provider EAR PAIN Social History [...] on filedocumented in this encounter Care Teams Summer Intern Relationship Specialty Start Date End Date Nemesio Rush PCP - General 11/22/18 [address] [facility] [address] [place] [address] documented as of this encounter
--- OUTSIDE RECORDS SUMMARY | 2022-04-17 16:50 | XMS_ITS | Encounter Summary ---
:1990 [facility] Address [address] [address] Care Team Providers Name Role Phone Unavailable Primary Care Provider Unavailable Encounter Details Date Type Department Care Team Description 12/14/2013 Orders Only [place] [facility] Hypercholesterolemia; [address] Abnormal TSH; Rogelio [place] [address] Screening, iron deficiency a nemia [phone] Social History Tobacco Use Types Packs/Day Years [...] 12/14/2013 PM CDT 12:36 PM CDT Narrative [facility] - 12/14/2013 3:46 PM C DT Performed at [facility], [address] [place] [address] ??[phone] Marysol Vitale APRN, MATILDA LAB_1 Performing Organization Address [facility] Phon e Number [facility] [phone] FREE T4 (12/14/2013 12:34 PM CDT) athologist Signature T4, Free 1.0 0.8 - 2.2 [facility] ng/dl Specimen Anatomical Collection Method Collection Time Receive d Time (Source) Location / / Volume Laterality 12/14/2013 12:34 12/14/2013 PM CDT 12:36 PM CDT Narrative [facility] - 12/14/2013 5:10 PM C DT Performed at [facility], [address] [place] [address] ??[phone] Elaine Shultz MD LAB_1 Performing Organization Address [facility]/ZIP Code Phon e Number [facility] [phone] T3, FREE, SERUM (12/14/2013 12:34 PM CDT) athologist Signature T3,Free 4.5 2.8 - 5.2 [facility] pg/ml Specimen Anatomical Collection Method Collection Time Receive d Time (Source) Location / / Volume Laterality 12/14/2013 12:34 12/14/2013 PM CDT 12:36 PM CDT Narrative [facility] - 12/14/2013 5:10 PM C DT Performed at [facility], [address] [place] [address] ??[phone] Elaine Shultz MD LAB_1 Performing Organization Address City/State/ZIP Code Phon e Number [facility] [phone] ALT (SGPT) (12/14/2013 12:34 PM CDT) athologist Signature ALT (SGPT) 31 0 - 69 U/L [facility] Specimen Anatomical Collection Method Collection Time Receive d Time (Source) Location / / Volume Laterality 12/14/2013 12:34 12/14/2013 PM CDT 12:36 PM CDT Narrative [facility] - 12/14/2013 4:52 PM C DT Performed at [facility], [address] [place] [address] ??[phone] Elaine Shultz MD LAB_1 Performing Organization Address City/[facility]/ZIP Code Phon e Number [facility] [phone] AST (12/14/2013 12:34 PM CDT) athologist Signature AST (SGOT) 44 0 - 66 U/L [facility] Specimen Anatomical Collection Method Collection Time Receive d Time (Source) Location / / Volume Laterality 12/14/2013 12:34 12/14/2013 PM CDT 12:36 PM CDT Narrative [facility] - 12/14/2013 4:52 PM C DT Performed at [facility], [address] [place] [address] ??[phone] Elaine Shultz MD LAB_1 Performing Organization Address City/State/ZIP Code Phon e Number [facility] [phone] documented in this encounter Visit Diagnoses Diagnosis Hypercholesterolemia Pure hypercholesterolemia Abnormal TSH Other abnormal clinical finding Screening, iron deficiency anemia Screening for iron deficiency anemia documented in this encounter
--- OUTSIDE RECORDS SUMMARY | 2022-04-17 16:50 | XMS_ITS | Encounter Summary ---
:1990 Author Organization [facility] Address [address] [place] [address] Care Team Providers Name Role Phone Unavailable Primary Care Provider Unavailable Reason for Visit Reason Onset Date Comments QUESTIONS, GENERAL 10/10/2013 Encounter Details Date Type Department Care Team Description 10/10/2013 Telephone [facility] Hybrid Security Unknown, Ph ysician QUESTIONS, GENERAL Obstetrics and Gynec ology [address] [address] [address] [place], [place] [address] [phone] (Wo rk) Social History Tobacco Use Types [...] this encounter Nursing Notes Marysol Vitale, CISCO, ELECTRIC SHAVER MECHANIC - 10/17/2013 9:28 AM CDT Pt was [...] HER CHOLESTEROL CHECKED AT A CLINIC IN [place] AND THEN HAVE THE RESULTS SENT TO [...]
--- OUTSIDE RECORDS SUMMARY | 2022-04-17 16:50 | XMS_ITS | Encounter Summary ---
:1990 [facility] Address [address] [place] [address] Care Team Providers Name Role Phone Victor [...] on filedocumented in this encounter Care Teams Casting And Curing Operator Relationship Specialty Start Date End Date Nemesio Rush PCP - General 11/22/[address] [address] documented as of this encounter
--- OUTSIDE RECORDS SUMMARY | 2022-04-17 16:50 | XMS_ITS | Encounter Summary ---
:1990 Author Organization [facility] Address [address] [address] Care Team Providers Name Role Phone Unavailable Primary Care Provider Unavailable Reason for Visit Reason Comments ROUTINE HEALTH MAINTENANCE Encounter Details Date Type Department Care Team Description 12/16/2011 Office Visit [facility] Marysol Vitale general medical examination at a health care facility (Primary Dx); Obstetrics and L, CISCO, MATILDA Screening exa mination for venereal disease; Gynecology Contraceptive surveillance [address] [place], [place] [address] Social History Tobacco Use Types Packs/Day Years [...] findings: external genitalia normal, Bartholin's glands, urethra, Miguel Barrera's glands negative, vaginal mucosa normal, cervix clear, normal sized uterus, adnexae negative. 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 gonorrhoeae) Negative [facility] Comment: Test Performed by Code Enforcement Officer Mediated Amplification Source Cervix [facility] Specimen Anatomical Collection Method Collection Time Receive d Time (Source) Location / / Volume Laterality 12/16/2011 3:33 PM 2 3:34 CDT PM CDT Marysol Vitale APRN, CNP LAB_1 Performing Organization Address City/State/ZIP Code Phon e Number [facility] [phone] [address] documented in this encounter Visit Diagnoses Diagnosis Routine general medical examination at [facility] facility - Primary Routine general medical examination at a [facility] facility Screening examination for venereal disea se Contraceptive surveillance Contraceptive surveillance, unspecified documented in this encounter
--- OUTSIDE RECORDS SUMMARY | 2022-04-17 16:50 | XMS_ITS | Encounter Summary ---
:1990 Author Organization [facility] Address [address], [place] [address] Care Team Providers Name Role Phone Unavailable Primary Care Provider Unavailable Reason for Visit Reason Comments Encounter Details Date Type Department Care Team Description 02/27/2014 Telephone [facility] [address] Orlando Mckinley MD [facility] [address] [place] [address] Social History Tobacco Use Types Packs/Day Years [...]
--- OUTSIDE RECORDS SUMMARY | 2022-04-17 16:50 | XMS_ITS | Encounter Summary ---
:1990 [facility] Address [address], [place] [address] Care Team Providers Name Role Phone Unavailable Primary Care Provider Unavailable Reason for Visit Reason Comments Control Consult high cholesterol Encounter Details Date Type Department Care Team Description 12/14/2013 Office Visit [facility] Chaya Armando C ontraception (Primary Obstetrics and MD Dx) Gynecology [address] [place] [address] [phone] Social History Tobacco Use Types Packs/Day Years [...] MD - 12/14/2013 1:27 PM CDT Call [phone] to schedule insertion of Nexplanon or Andreia. documented in this encounter Progress Notes Chaya Armando MD - 12/14/2013 1:12 PM CDT LACING STRING CUTTER Office Note Chief Complaint: Needs to change [...]
--- OUTSIDE RECORDS SUMMARY | 2022-04-17 16:50 | XMS_ITS | Encounter Summary ---
:1990 Author [facility] Address [address] [place] [address] Care Team Providers Name Role Phone Unavailable Primary Care Provider Unavailable Encounter Details Date Type Department Care Team Description 03/19/2010 Emergency Room External to [facility], DYSURIA S UPRAPUBIC Provider DISCOMFORT Social [...]
--- OUTSIDE RECORDS SUMMARY | 2022-04-17 16:50 | XMS_ITS | Encounter Summary ---
:1990 Author Organization [facility] Address [address] [place] [address] Care Team Providers Name Role Phone Unavailable Primary Care Provider Unavailable Encounter Details Date Type Department Care Team Description 10/08/2011 Orders Only [facility] Dairy product intolerance; [address] Bloating; [place] [address] Hypercholesterolemia [phone] Social History Tobacco Use Types Packs/Day Years [...] i ntolerance Results for this PANEL,FASTING AM FUND DIRECTOR Bloating procedure are in the results section. LIPID PANEL AND Routine 10/08/2011 11:07 Hypercholesterolemia Results for this DIRECT LDL(IF AM FUND DIRECTOR procedure are in NEEDED) the results section. VITAMIN D Routine 10/08/2011 11:07 Bloating Results for this 25-HYDROXY, TOTAL AM FUND DIRECTOR procedure are in the results section. COMPLETE BLOOD Waiting 10/08/2011 11:07 Dairy product i ntolerance Results for this COUNT-NO DIFF AM FUND DIRECTOR Bloating procedure are in the results section. ALT (SGPT) Routine 10/08/2011 11:07 Bloating Results for this AM FUND DIRECTOR procedure are i n the results section. AST Routine 10/08/2011 11:07 Bloating Results for this AM FUND DIRECTOR procedure are i n the results section. documented in this encounter Results BASIC METABOLIC PANEL,FASTING (10/08/2011 11:07 AM FUND DIRECTOR) Analysis Performed At Patho logist Time Signature [...] / Volume Laterality 10/08/2011 11:07 10/08/2011 AM FUND DIRECTOR 11:08 AM FUND DIRECTOR Paul Taveras MD LAB_1 Performing Organization Address [facility] Phon e Number [facility] [phone] [address] AST (10/08/2011 11:07 AM FUND DIRECTOR) athologist [facility] AST (SGOT) 22 0 - 55 U/L [facility] Specimen Anatomical Collection Method Collection Time Receive d Time (Source) Location / / Volume Laterality 10/08/2011 11:07 10/08/2011 AM FUND DIRECTOR 11:08 AM FUND DIRECTOR Paul Taveras MD LAB_1 Performing Organization Address [facility] Phon e Number [facility] [phone] [address] ALT (SGPT) (10/08/2011 11:07 AM FUND DIRECTOR) athologist Signature ALT (SGPT) 15 0 - 69 U/L [facility] Specimen Anatomical Collection Method Collection Time Receive d Time (Source) Location / / Volume Laterality 10/08/2011 11:07 10/08/2011 AM FUND DIRECTOR 11:08 AM FUND DIRECTOR Paul Taveras MD LAB_1 Performing Organization Address [facility] Phon e Number [facility] [place] [phone] [facility] [address] [place] [address] (ABNORMAL) LIPID PANEL AND DIRECT LDL(IF NEEDED) (10/08/2011 11:07 AM FUND DIRECTOR) [facility] Method Time Signature Cholesterol 371 (H) 0 - 199 [email or web address] mg/dl Triglyceride 168 (H) 0 - 149 [facility] mg/dl HDL 68 >40 mg/dl [facility] LDL, Calc. 269 (H) 0 - 129 [email or web address] mg/dl Non HDL Chol, 303 mg/dl [facility] Calc Comment: Non HDLC goal is 30 mg/dl above the patient's desired LDLC goal. Hours Fasting 12 hours [facility] Specimen Anatomical Collection Method Collection Time Receive d Time (Source) Location / / Volume Laterality 10/08/2011 11:07 10/08/2011 AM FUND DIRECTOR 11:08 AM FUND DIRECTOR Paul Taveras MD LAB_1 Performing Organization Address [facility] Phon e Number [facility] [place] [phone] [address] (ABNORMAL) VITAMIN D 25-HYDROXY, TOTAL (V77.99) (10/08/2011 11:07 AM FUND DIRECTOR) [facility] Method [place] Signature Vitamin 21.3 (L) 30 - 80 [facility] D,25-OH, Tot ng/mL Comment: Deficiency: ??< 20 ng/mL Insufficiency: ??20-29 ng/mL Optimum Level: ??30-80 ng/mL Possible Toxicity: > 80 ng/mL Performed at [facility] Specimen Anatomical Collection Method Collection Time Receive d Time (Source) Location / / Volume Laterality 10/08/2011 11:07 10/08/2011 AM FUND DIRECTOR 11:09 AM FUND DIRECTOR Paul Taveras MD LAB_1 Performing Organization Address [facility] Phon e Number [facility] [place] [phone] [address] (ABNORMAL) HEMOGRAM/PLTS (10/08/2011 11:07 AM FUND DIRECTOR) athologist Signature WBC 5.7 4.0 - 11.0 [facility] k/ul RBC 4.75 4.0 - 5.2 [facility] M/ul Hemoglobin 13.1 12.0 - [facility] 16.0 g/dl HCT 40.0 36.0 - [facility] 46.0 % MCV 84.0 80 - 100 [facility] fl MCH 27.6 26 - 34 pg [facility] MCHC 32.8 32 - 36 [facility] g/dl RDW 11.2 (L) 11.5 - [facility] 14.5 % Platelets 326 150 - 450 [facility] k/ul Specimen Anatomical Collection Method Collection Time Receive d Time (Source) Location / / Volume Laterality 10/08/2011 11:07 10/08/2011 AM FUND DIRECTOR 11:08 AM FUND DIRECTOR Paul Taveras MD LAB_1 Performing Organization Address 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
--- OUTSIDE RECORDS SUMMARY | 2022-04-17 16:50 | XMS_ITS | Encounter Summary ---
:1990 Author Organization [facility] Address [address] [address] Care Team Providers Name Role Phone Unavailable Primary Care Provider Unavailable Reason for Visit Reason Comments MEDICATION CHECK Encounter Details Date Type Department Care Team Description 03/13/2010 Office Visit Elaine López, or Depressive Practice MD Disorder, [facility] [address] Episode, Moderate [place] [address] [address] (Primary Dx) [phone] [place], [place] [address] (Wo rk) Social History Tobacco Use Types [...] that next week she is going to [place] and she will start college and she [...] score today is 7. ASSESSMENT AND PLAN: Cvovilwr-twig-ilm female to follow up with major depression. [...]
--- OUTSIDE RECORDS SUMMARY | 2022-04-17 16:50 | XMS_ITS | Encounter Summary ---
:1990 Author Organization [facility] Address [address] [place] [address] Care Team Providers Name Role Phone Unavailable Primary Care Provider Unavailable Reason for Visit Reason Comments STOMACH PROBLEM noticed she get sick, bloate d after eating large amt of dairy Encounter Details Date Type Department Care Team Description 10/08/2011 Office Visit Paul Lopez MD Dairy product intolerance (Primary Dx); Practice [address] Bloating; [address] [facility] [address] Hypercholesterolemia; SLICK [place] [address] [place] Vaccin for DTP [phone] (Wo rk) Social History Tobacco Use Types Packs/Day Years Used Date Smoking Tobacco: Never Smokeless Tobacco: Never Alcohol Use Standard Drinks/Week Comments No 0 (1 standard drink = 0.6 oz pure alcoho l) Sex Assigned at Date Recorded Not on file documented as of this encounter Last Filed Vital Signs Vital Sign Reading Time Taken Comments Blood Pressure 118/70 10/08/2011 10:08 AM MICROFILM EQUIPMENT INSPECTOR Pulse 80 10/08/2011 10:08 AM MICROFILM EQUIPMENT INSPECTOR Temperature - - Respiratory Rate - - Oxygen Saturation - - Inhaled Oxygen Concentration - - Weight 60.8 kg (134 lb) 10/08/2011 10:08 AM MICROFILM EQUIPMENT INSPECTOR Height - - Body Mass Index 24.71 03/06/2010 4:05 PM CDT documented in this encounter Patient Instructions Patient Paul Solomon MD - 10/10/2011 3:54 PM CST Should you have any questions or concerns, please call my office at [phone], or have a follow-up visit to discuss further. Thank you for letting me serve you. Thank you for visiting [facility]. To contact the clinic directly, please call [phone]. To schedule the appointment(s), please call [phone] or online at [email or web address] If you need urgent medical help after clinic hours or on weekends, please call: CareLine [phone], or call 911 if any life threatening condition. Paul Taveras MD OFILM EQUIPMENT INSPECTOR documented in this encounter Progress Notes Paul [...] intolerance mainly based on the clinical presentation. [facility] has eliminated lab test for this intolerance concern. [facility], he confirmed that our [...] REST PLEASE SEE DICTATED NOTE FOR DETAIL) OFILM EQUIPMENT INSPECTOR documented in this encounter Plan of Treatment Not on filedocumented as of this encounter Results BASIC METABOLIC PANEL,FASTING (10/08/2011 11:07 AM MICROFILM EQUIPMENT INSPECTOR) Analysis Performed At Patho logist Time Signature [...] / Volume Laterality 10/08/2011 11:07 10/08/2011 AM MICROFILM EQUIPMENT INSPECTOR 11:08 AM MICROFILM EQUIPMENT INSPECTOR Paul Taveras MD LAB_1 Performing Organization Address City/State/ZIP Code Phon e Number [facility] [phone] [facility] [address] [address] AST (10/08/2011 11:07 AM MICROFILM EQUIPMENT INSPECTOR) athologist Signature AST (SGOT) 22 0 - 55 U/L [facility] Specimen Anatomical Collection Method Collection Time Receive d Time (Source) Location / / Volume Laterality 10/08/2011 11:07 10/08/2011 AM MICROFILM EQUIPMENT INSPECTOR 11:08 AM MICROFILM EQUIPMENT INSPECTOR Paul Taveras MD LAB_1 Performing Organization Address [facility] Phon e Number [employer] [phone] [address] ALT (SGPT) (10/08/2011 11:07 AM MICROFILM EQUIPMENT INSPECTOR) athologist Signature ALT (SGPT) 15 0 - 69 U/L [facility] Specimen Anatomical Collection Method Collection Time Receive d Time (Source) Location / / Volume Laterality 10/08/2011 11:07 10/08/2011 AM MICROFILM EQUIPMENT INSPECTOR 11:08 AM MICROFILM EQUIPMENT INSPECTOR Paul Taveras MD LAB_1 Performing Organization Address [facility] Phon e Number [employer] [phone] [address] (ABNORMAL) LIPID PANEL AND DIRECT LDL(IF NEEDED) (10/08/2011 11:07 AM MICROFILM EQUIPMENT INSPECTOR) [facility] Method Time Signature Cholesterol 371 (H) 0 - 199 [facility] mg/dl Triglyceride 168 (H) 0 - 149 [facility] mg/dl HDL 68 >40 mg/dl [facility] LDL, Calc. 269 (H) 0 - 129 [facility] mg/dl Non HDL Chol, 303 mg/dl [facility] Calc Comment: Non HDLC goal is 30 mg/dl above the patient's desired LDLC goal. Hours Fasting 12 hours [facility] Specimen Anatomical Collection Method Collection Time Receive d Time (Source) Location / / Volume Laterality 10/08/2011 11:07 10/08/2011 AM MICROFILM EQUIPMENT INSPECTOR 11:08 AM MICROFILM EQUIPMENT INSPECTOR Paul Taveras MD LAB_1 Performing Organization Address [facility] Phon e Number [employer] [phone] [phone] (ABNORMAL) VITAMIN D 25-HYDROXY, TOTAL (V77.99) (10/08/2011 11:07 AM MICROFILM EQUIPMENT INSPECTOR) [facility] gist Method Time Signature Vitamin 21.3 (L) 30 - 80 [facility] D,25-OH, Tot ng/mL Comment: Deficiency: ??< 20 ng/mL Insufficiency: ??20-29 ng/mL Optimum Level: ??30-80 ng/mL Possible Toxicity: > 80 ng/mL Performed at [facility] Specimen Anatomical Collection Method Collection Time Receive d Time (Source) Location / / Volume Laterality 10/08/2011 11:07 10/08/2011 AM MICROFILM EQUIPMENT INSPECTOR 11:09 AM MICROFILM EQUIPMENT INSPECTOR Paul Taveras MD LAB_1 Performing Organization Address [facility] Phon e Number [facility] [phone] [phone] (ABNORMAL) HEMOGRAM/PLTS (10/08/2011 11:07 AM MICROFILM EQUIPMENT INSPECTOR) athologist Signature WBC 5.7 4.0 - 11.0 [facility] k/ul RBC 4.75 4.0 - 5.2 [facility] M/ul Hemoglobin 13.1 12.0 - [facility] 16.0 g/dl HCT 40.0 36.0 - [facility] 46.0 % MCV 84.0 80 - 100 [facility] fl MCH 27.6 26 - 34 pg [facility] MCHC 32.8 32 - 36 [facility] g/dl RDW 11.2 (L) 11.5 - [facility] 14.5 % Platelets 326 150 - 450 [facility] k/ul Specimen Anatomical Collection Method Collection Time Receive d Time (Source) Location / / Volume Laterality 10/08/2011 11:07 10/08/2011 AM MICROFILM EQUIPMENT INSPECTOR 11:08 AM MICROFILM EQUIPMENT INSPECTOR Paul Taveras MD LAB_1 Performing Organization Address [facility] Phon e Number [facility] [phone] [address] documented in this encounter Visit Diagnoses Diagnosis Dairy product intolerance - Primary Other specified intestinal malabsorption Bloating Flatulence, eructation, and gas pain Hypercholesterolemia Pure hypercholesterolemia Need for prophylactic vaccination with c ombined zftywfgftp-qabjutv-myrohtkzh (DTP) vaccine documented in this encounter
--- OUTSIDE RECORDS SUMMARY | 2022-04-17 16:50 | XMS_ITS | Encounter Summary ---
:1990 [facility] Address [address] [place] [address] Care Team Providers Name Role Phone Unavailable Primary Care Provider Unavailable Reason for Visit Reason Comments JOINT PAIN knees and wrists. Labs Needed follow up on Vit D. Pt is du e for follow up cholest., but she is not fasting. Encounter Details Date Type Department Care Team Description 12/16/2011 Office Visit Elaine López, Carl hralgia (Primary Dx); Practice Abnormal laboratory test [address] [place] [address] [place] [address] (Wo rk) Social History Tobacco Use Types [...] your doctor if you can take an xnyi-izd-vifkwfo medicine. ?? Use a cane, crutch, walker, [...] Where can you learn more? Go to [employer] and enter Z807 in the search box. ?? [id number] [employer]. Content Version: 9.2.540350; Last Revised: November 10, 2010 Patellofemoral Pain [...] Where can you learn more? Go to [employer] and enter U786 in the search box. ?? [phone] [employer]. Content Version: 9.2.388808; Last Revised: May 08, 2011 documented in [...] Dictated: 12/16/2011 15:07:10 Transcribed: 12/17/2011 09:43:25 Job: [id number] Doc: [id number] cc: documented in this encounter Plan of Treatment Not on filedocumented as of this encounter Results (ABNORMAL) ESR (12/16/2011 2:57 PM CDT) P athologist Signature ESR 28 (H) 0 - 20 [facility] mm/hr Specimen Anatomical Collection Method Collection Time Receive d Time (Source) Location / / Volume Laterality 12/16/2011 2:57 PM 2 2:59 CDT PM CDT Elaine Shultz MD LAB_1 Performing Organization Address [facility] Phon e Number [facility] [employer] [phone] [address] (ABNORMAL) C-REACTIVE PROTEIN (12/16/2011 2:57 PM CDT) [facility] gist Method Time Signature C-Reactive 1.5 (H) 0.0 - 0.9 [facility] Protein mg/dl Comment: Note: results are expressed in mg/dL. Specimen Anatomical Collection Method Collection Time Receive d Time (Source) Location / / Volume Laterality 12/16/2011 2:57 PM 2 2:59 CDT PM CDT Elaine Shultz MD LAB_1 Performing Organization Address [facility] Phon e Number [facility] [employer] [phone] [phone] RHEUMATOID FACTOR, QUANT (12/16/2011 2:57 PM CDT) P athologist Signature Quant. Rheum. <9 0 - 11 [facility] Factor IU/ml Specimen Anatomical Collection Method Collection Time Receive d Time (Source) Location / / Volume Laterality 12/16/2011 2:57 PM 2 2:59 CDT PM CDT Elaine Shultz MD LAB_1 Performing Organization Address [facility] Phon e Number [facility] [phone] [phone] (ABNORMAL) MELISSA SCREEN (12/16/2011 2:57 PM CDT) [facility] gist Method Time Signature MELISSA Screen Positive [facility] (A) Comment: This is a test that requires interpretat ion by your provider and does not necessarily indicate that you have a specific disease. Specimen Anatomical Collection Method Collection Time Receive d Time (Source) Location / / Volume Laterality 12/16/2011 2:57 PM 2 2:59 CDT PM CDT Elaine Shultz MD LAB_1 Performing Organization Address [facility] Phon e Number [facility] [phone] [address] (ABNORMAL) HEMOGRAM/PLTS (12/16/2011 2:57 PM CDT) athologist Signature WBC 5.0 4.0 - 11.0 [facility] k/ul RBC 4.20 4.0 - 5.2 [facility] M/ul Hemoglobin 11.7 (L) 12.0 - [facility] 16.0 g/dl HCT 35.7 (L) 36.0 - [facility] 46.0 % MCV 85.0 80 - 100 [facility] fl MCH 27.9 26 - 34 pg [facility] MCHC 32.8 32 - 36 [facility] g/dl RDW 12.7 11.5 - [facility] 14.5 % Platelets 285 150 - 450 [facility] k/ul Specimen Anatomical Collection Method Collection Time Receive d Time (Source) Location / / Volume Laterality 12/16/2011 2:57 PM 2 2:59 CDT PM CDT Elaine Shultz MD LAB_1 Performing Organization Address [facility] Phon e Number [facility] [phone] [address] VITAMIN D 25-HYDROXY, TOTAL (V77.99) (12/16/2011 2:57 PM CDT) athologist Signature Vitamin 31.3 30 - 80 [facility] D,25-OH, Tot ng/mL Comment: Deficiency: ??< 20 ng/mL Insufficiency: ??20-29 ng/mL Optimum Level: ??30-80 ng/mL Possible Toxicity: > 80 ng/mL Performed at [facility] Specimen Anatomical Collection Method Collection Time Receive d Time (Source) Location / / Volume Laterality 12/16/2011 2:57 PM 2 2:58 CDT PM CDT Elaine Shultz MD LAB_1 Performing Organization Address [facility] Phon e Number [facility] [employer] [phone] [address] documented in this encounter Visit Diagnoses Diagnosis Arthralgia - Primary Pain in joint, site unspecified Abnormal laboratory test Other abnormal clinical finding documented in this encounter
--- OUTSIDE RECORDS SUMMARY | 2022-04-17 16:50 | XMS_ITS | Encounter Summary ---
:1990 Author Organization [facility] Address [address] [place] [address] Care Team Providers Name Role Phone Unavailable Primary Care Provider Unavailable Encounter Details Date Type Department Care Team Description 12/16/2011 Orders Only [place] [facility] Abnormal laboratory test; [address] Arthral[place], [place] [address] Social History Tobacco Use Types Packs/Day [...] Elaine Shultz MD LAB_1 Performing Organization Address [facility] Phon e Number [facility] [employer] [phone] [address] (ABNORMAL) ESR (12/16/2011 2:57 PM CDT) athologist Signature ESR 28 (H) 0 - 20 [facility] mm/hr Specimen Anatomical Collection Method Collection Time Receive d Time (Source) Location / / Volume Laterality 12/16/2011 2:57 PM 2 2:59 CDT PM CDT Elaine Shultz MD LAB_1 Performing Organization Address [facility] Phon e Number [facility] [employer] [phone] [facility] [address] [place] [address] (ABNORMAL) C-REACTIVE PROTEIN (12/16/2011 2:57 PM CDT) [facility] Method Time Signature C-Reactive 1.5 (H) 0.0 - 0.9 [facility] Protein mg/dl Comment: Note: results are expressed in mg/dL. Specimen Anatomical Collection Method Collection Time Receive d Time (Source) Location / / Volume Laterality 12/16/2011 2:57 PM 2 2:59 CDT PM CDT Elaine Shultz MD LAB_1 Performing Organization Address [facility] Phon e Number [facility] [employer] [phone] [address] RHEUMATOID FACTOR, QUANT (12/16/2011 2:57 PM CDT) athologist Signature Quant. Rheum. <9 0 - 11 [facility] Factor IU/ml Specimen Anatomical Collection Method Collection Time Receive d Time (Source) Location / / Volume Laterality 12/16/2011 2:57 PM 2 2:59 CDT PM CDT Elaine Shultz MD LAB_1 Performing Organization Address [facility] Phon e Number [facility] [employer] [phone] [address] (ABNORMAL) MELISSA SCREEN (12/16/2011 2:57 PM CDT) [facility] Method Time Signature MELISSA Screen Positive NEG [facility] (A) Comment: This is a test that requires interpretat ion by your provider and does not necessarily indicate that you have a specific disease. Specimen Anatomical Collection Method Collection Time Receive d Time (Source) Location / / Volume Laterality 12/16/2011 2:57 PM 2 2:59 CDT PM CDT Elaine Shultz MD LAB_1 Performing Organization Address [facility] Phon e Number [facility] [employer] [phone] [address] (ABNORMAL) HEMOGRAM/PLTS (12/16/2011 2:57 PM [...] Elaine Shultz MD LAB_1 Performing Organization Address [facility] Phon e Number [employer] [phone] [address] VITAMIN D 25-HYDROXY, TOTAL (V77.99) (12/16/2011 2:57 PM CDT) athologist Signature Vitamin 31.3 30 - 80 [facility] D,25-OH, Tot ng/mL Comment: Deficiency: ??< 20 ng/mL Insufficiency: ??20-29 ng/mL Optimum Level: ??30-80 ng/mL Possible Toxicity: > 80 ng/mL Performed at [facility] Specimen Anatomical Collection Method Collection Time Receive d Time (Source) Location / / Volume Laterality 12/16/2011 2:57 PM 2 2:58 CDT PM CDT Elaine Shultz MD LAB_1 Performing Organization Address [facility] Phon e Number [employer] [phone] [address] documented in this encounter Visit Diagnoses Diagnosis Abnormal laboratory test Other abnormal clinical finding Arthralgia Pain in joint, site unspecified documented in this encounter
--- OUTSIDE RECORDS SUMMARY | 2022-04-17 16:50 | XMS_ITS | Encounter Summary ---
:1990 Author Organization [facility] Address [address] [place] [address] Care Team Providers Name Role Phone Unavailable Primary Care Provider Unavailable Reason for Visit Reason Comments MEDICATION CHECK follow up on Zoloft. LAB TESTS, NOS Pt due for Chlamydia MEDICATION CHECK refill pended Encounter Details Date Type Department Care Team Description 02/18/2011 Office Visit Elaine López Maj or depressive disorder, single episode, moderate (Primary Dx); Practice MD Screening for STDs (sexually transmitted diseases); [address] [address] [address] Contraceptive surveillance; [address] [facility] [address] [address] [phone] Social History Tobacco Use Types Packs/Day Years [...] and eliminate as much light as possible. Braymer the bed for sleep and sex. Don't [...] high school, the patient has been taking mhuq-rzd-mhraufq melatonin, which seemed to help in the [...] aids, except may get a trial of dnug-dmp-wtgpsrt Tylenol PM or Aleve PM to regulate sleep cycle in the beginning. 3. Contraception. Refill of Sprintec. Recommend a Pap smear at age 22. Also will screen the patient for Chlamydia. Agreed with the plan. Elaine Shultz MD GLK:radha Dictated: 02/18/2011 14:17:05 Transcribed: 02/19/2011 09:21:10 Job: [id number] Doc: [id number] cc: Elaine Shultz MD - 02/18/2011 1:57 [...] Results CHLAMYDIA, URINE (02/18/2011 2:01 PM CDT) [facility] Method Time Signature C.trachomatis Negative NEG [facility] , Urine Comment: Test Performed by [employer] Civil [employer] Mediated Amplification Specimen Anatomical Collection Method Collection Time Receive d Time (Source) Location / / Volume Laterality Urine specimen 02/18/2011 2:01 PM 011 2:04 (specimen) CDT PM CDT Elaine Shultz MD LAB_1 Performing Organization Address City/State/ZIP Code Phon e Number [facility] [phone] [facility] [address] [place] [address] documented in this encounter Visit Diagnoses Diagnosis Major depressive disorder, single episod e, moderate ([facility]) - Primary Major depressive disorder, single episod e, moderate Screening for STDs (sexually transmitted diseases) Screening examination for venereal disea se Contraceptive surveillance Contraceptive surveillance, unspecified Insomnia Insomnia, unspecified documented in this encounter
--- OUTSIDE RECORDS SUMMARY | 2022-04-17 16:50 | XMS_ITS | Encounter Summary ---
:1990 Author Organization [facility] Address [address] [place] [address] Care Team Providers Name Role Phone Unavailable Primary Care Provider Unavailable Reason for Visit Reason Comments Refill Encounter Details Date Type Department Care Team Description 10/15/2012 Refill [facility] Marysol Vitale APRN, Refill Obstetrics and Gynec ology [facility] [address] [place], [place] [address] Social History Tobacco Use Types [...]
--- OUTSIDE RECORDS SUMMARY | 2022-04-17 16:50 | XMS_ITS | Encounter Summary ---
:1990 Author Organization [facility] Address [address] [address] Care Team Providers Name Role Phone Unavailable Primary Care Provider Unavailable Reason for Visit Reason Onset Date Comments Lab Orders Needed 10/04/2011 Encounter Details Date Type Department Care Team Description 10/04/2011 Telephone [facility] Eduarda Shultz MD Lab Orders Needed [facility] [address] [address] [place] [address] [place], [place] [address] [phone] Social History Tobacco Use Types Packs/Day Years [...] seen. Transferred to schedule. Etelvina Reddy RN NO SLOT SUPERVISOR Brisa Hooper - 10/05/2011 2:27 PM CST Pt returned call NO SLOT SUPERVISOR Etelvina Reddy, RN - 10/05/2011 8:34 AM CST Why is patient requesting these labs? Any symptoms? Left message to call back. Etelvina Reddy RN NO SLOT SUPERVISOR Jossy Mack - 10/04/2011 4:22 PM CST [...] have for the services you are requesting. NO SLOT SUPERVISOR documented in this encounter Plan of Treatment Not on filedocumented as of this encounter Visit Diagnoses Not on filedocumented in this encounter
--- OUTSIDE RECORDS SUMMARY | 2022-04-17 16:50 | XMS_ITS | Encounter Summary ---
:1990 Author [facility] Address [address] [place] [address] Care Team Providers Name Role Phone Unavailable Primary Care Provider Unavailable Reason for Visit Reason Comments Refill Encounter Details Date Type Department Care Team Description 02/22/2013 Refill [facility] Samm Braden MD Refill Obstetrics and Gynec ology [address] [address] [place] [address] [place], [place] [address] [phone] Social History Tobacco Use Types Packs/Day Years [...]
--- OUTSIDE RECORDS SUMMARY | 2022-04-17 16:50 | XMS_ITS | Encounter Summary ---
:1990 Author Organization [facility] Address [address], [place] [address] Care Team Providers Name Role Phone Unavailable Primary Care Provider Unavailable Reason for Visit Reason Comments LAB RESULTS Discuss lab results that aliyah healy done in September. Encounter Details Date Type Department Care Team Description 12/14/2013 Office Visit Elaine López Fam ilichristine hyperlipidemia (Primary Dx); Practice Abnormal TSH [address] [place] [address] [address] [phone] Social History Tobacco Use Types Packs/Day Years [...] Where can you learn more? Go to [employer] and enter I865 in the search box. Last Revised: October 20, 2011 ?? [phone] [employer]. 05-14 Learning About High Cholesterol What is [...] Where can you learn more? Go to [employer] and enter Q621 in the search box. Last Revised: September 21, 2012 ?? [phone] [employer]. Thyroid-Stimulating Hormone (TSH) Test: About This [...] Where can you learn more? Go to [employer] and enter K551 in the search box. Last Revised: December 16, 2012 ?? 9816-3497 [employer]. Low Cholesterol, Low Saturated Fat, Low [...] white bread, white, wheat, rye, raisin, oatmeal, Azeri, Vietnamese and Haitian muffin bread ?? Haitian muffins, plain dinner rolls, hard rolls, hamburger and hot dog rolls ?? Saltines, matzo, michael crackers ?? Baked products and quick breads made with egg whites, egg substitutes or allowed whole eggs, skimmilk and allowed fats ?? Egg and cheese breads. Commercially prepared sweetrolls, donuts, muffins, biscuits, pancakes and waffles ?? Variety libertarian crackers, such as Ritz and HiHo's Cereals [...] or sour cream ?? Polyunsaturated cream substitutes. [place] and peanut oils may be used ?? [...] Cream sauces made with allowed ingredients ?? Dickinson ?? Use nuts in moderation, except those [...] Dictated: 12/14/2013 16:25:25 Transcribed: 12/15/2013 07:01:06 Job: [id number] Doc: [id number] cc: documented in this encounter Plan of [...] 12/14/2013 5:10 PM C DT Performed at [facility], [address] [place] [address] ??[id number] Elaine Shultz MD LAB_1 Performing Organization Address City/[facility] Phon e Number [facility] [phone] T3, FREE, SERUM (12/14/2013 12:34 PM CDT) athologist Signature T3,Free 4.5 2.8 - 5.2 [facility] pg/ml Specimen Anatomical Collection Method Collection Time Receive d Time (Source) Location / / Volume Laterality 12/14/2013 12:34 12/14/2013 PM CDT 12:36 PM CDT Narrative [facility] - 12/14/2013 5:10 PM C DT Performed at [facility], [address] [place] [address] ??[id number] Elaine Shultz MD LAB_1 Performing Organization Address [facility] Phon e Number [facility] [phone] ALT (SGPT) (12/14/2013 12:34 PM CDT) athologist Signature ALT (SGPT) 31 0 - 69 U/L [facility] Specimen Anatomical Collection Method Collection Time Receive d Time (Source) Location / / Volume Laterality 12/14/2013 12:34 12/14/2013 PM CDT 12:36 PM CDT Narrative [facility] - 12/14/2013 4:52 PM C DT Performed at [facility], [address] [place] [address] ??[id number] Elaine Shultz MD LAB_1 Performing Organization Address City/[facility]/ZIP Code Phon e Number [facility] [phone] AST (12/14/2013 12:34 PM CDT) athologist Signature AST (SGOT) 44 0 - 66 U/L [facility] Specimen Anatomical Collection Method Collection Time Receive d Time (Source) Location / / Volume Laterality 12/14/2013 12:34 12/14/2013 PM CDT 12:36 PM CDT Narrative [facility] - 12/14/2013 4:52 PM C DT Performed at [facility], [address] [place] [address] ??[id number] Elaine Shultz MD LAB_1 Performing Organization Address City/State/ZIP Code Phon e Number [facility] [phone] documented in this encounter Visit Diagnoses Diagnosis Familial hyperlipidemia - Primary Other and unspecified hyperlipidemia Abnormal TSH Other abnormal clinical finding Hypercholesterolemia Pure hypercholesterolemia Abnormal TSH Other abnormal clinical finding Screening, iron deficiency anemia Screening for iron deficiency anemia documented in this encounter
--- OUTSIDE RECORDS SUMMARY | 2022-04-17 16:50 | XMS_ITS | Encounter Summary ---
:1990 Author Organization [email or web address] Address [address], [place] [address] Care Team Providers Name Role Phone Unavailable Primary Care Provider Unavailable Reason for Visit Reason Comments Refill Encounter Details Date Type Department Care Team Description 12/09/2010 Refill [facility] Elaine Latham MD Refill [address] [facility] [address] [place], [place] [address] [address] [place] [address] [phone] (Wo rk) Social History Tobacco Use Types Packs/Day Years Used Date Smoking Tobacco: Never Alcohol Use Standard Drinks/Week Comments No 0 (1 standard drink = 0.6 oz pure alcoho l) Sex Assigned at Date Recorded Not on file documented as of this encounter Nursing Notes Zandra Bartholomew RN - 12/09/2010 1:13 PM CDTApproved Prescriptions: Disp Refills sertraline (AKA ZOLOFT) 50 MG tablet 135 [id number]: TAKE 1.5 TABLETS BY MOUTH DAILY.Authorizing Provider: ELAINE MATUTE User: ZANDRA BARTHOLOMEW Zandra Bartholomew RN - 12/09/2010 1:13 PM CDT Refilled per standing orders. Zandra Bartholomew R.N. documented in this encounter Plan of Treatment Not on filedocumented as of this encounter Visit Diagnoses Not on filedocumented in this encounter
--- OUTSIDE RECORDS SUMMARY | 2022-04-17 16:50 | XMS_ITS | Encounter Summary ---
:1990 Author Organization [facility] Address [address] [place] [address] Care Team Providers Name Role Phone Unavailable Primary Care Provider Unavailable Encounter Details Date Type Department Care Team Description 02/23/2014 Orders Only [facility] Screening for thyroid disord er (Primary Dx); [address] [facility] Pain in joint, multiple site s [place], [place] [address] Social History Tobacco Use Types [...] are in the results section. SM AND SM/LOCOMOTIVE SUPERVISOR Routine 02/23/2014 1:40 PM Pain in joint, [...] 02/23/2014 2:00 PM C DT Performed at [facility], [address] [place] [address] ??[phone] Orlando Mckinley MD LAB_1 Performing Organization Address City/State/ZIP Code Phon e Number [facility] [phone] DNA DOUBLE STRANDED ANTIBODY (02/23/2014 1:40 PM [...] 02/27/2014 2:39 PM C DT Performed at [facility], [address] [place] [address] ??[phone] Orlando Mckinley MD LAB_1 Performing Organization Address [facility]/ZIP Code Phon e Number [facility] [phone] RHEUMATOID FACTOR, QUANT(aka RFQ) [3025] (02/23/2014 1:40 PM CDT) P athologist Signature Quant. Rheum. <9 0 - 11 [facility] Factor IU/ml LABORATORIES Specimen Anatomical Collection Method Collection Time Receive d Time (Source) Location / / Volume Laterality 02/23/2014 1:40 PM 4 1:53 CDT PM CDT Narrative [facility] - 02/23/2014 4:13 PM C DT Performed at [facility], [address] [place] [address] ??[phone] Orlando Mckinley MD LAB_1 Performing Organization Address [facility]/ZIP Code Phon e Number [facility] [phone] LYME ANTIBODY [[id number]] (02/23/2014 1:40 PM CDT) P athologist Signature Lyme Antibody 0.38 0 - 0.74 [facility] OD Ratio LAB[facility]ATOR[facility] Comment: Negative Specimen Anatomical Collection Method Collection Time Receive d Time (Source) Location / / Volume Laterality 02/23/2014 1:40 PM 4 1:53 CDT PM CDT Narrative MG LAB[facility]ATOR[facility] - 02/26/2014 12:08 PM CDT Performed at [facility], [address] [place] [address] ??[phone] Orlando Mckinley MD LAB_1 Performing Organization Address [facility]/ZIP Code Phon e Number [facility] [phone] ANTI SS-A (RO) (02/23/2014 1:40 PM CDT) [...] PM 4 1:53 CDT PM CDT Narrative [facility] - 02/26/2014 11:03 AM CDT Performed at [facility], [address] [place] [address] ??[phone] Orlando Mckinley MD LAB_1 Performing Organization Address [facility] Phon e Number [facility] [phone] ANTI SS-B ([place]) (02/23/2014 1:40 PM CDT) [facility] Method Time Signature Anti-SSB ([place]) <0.3 0 - 6.9 [facility] Result U/mL LABORATORIES Anti-SSB (NOTE) [facility] Interpreta. Anti-SSB ([place]) ?Interpretation LABORATORIES VALUE ?of Test Results 0-6.9 ? Negative 7.0-10.0 ?Equivocal >10.0 ? Positive Specimen Anatomical Collection Method Collection Time Receive d Time (Source) Location / / Volume Laterality 02/23/2014 1:40 PM 4 1:53 CDT PM CDT Narrative [facility] - 02/26/2014 11:03 AM CDT Performed at [facility], [address] [place] [address] ??[phone] Orlando Mckinley MD LAB_1 Performing Organization Address [facility] Phon e Number [facility] [phone] AUTOABY TO JO1 AG (02/23/2014 1:40 PM CDT) Component Value Ref Test Analysis Performed At [facility] Range Method Time Signature DAKOTA-1 Antibody <1.0 NEG [facility] Reference range: <1.0 NEG LABO RATORIES Unit: AI DAKOTA-1 Antibody (NOTE) [facility] Test performed at [facility] [address] ??[phone] Director: MELVA SOTO MD Specimen Anatomical Collection Method Collection Time Receive d Time (Source) Location / / Volume Laterality 02/23/2014 1:40 PM 4 1:53 CDT PM CDT Orlando Mckinley MD LAB_1 Performing Organization Address City/[facility] Code Phon e Number [facility] [phone] AUTOABY TO SCL 70 AG (02/23/2014 1:40 PM CDT) [facility] Method Time Signature SCL-70 Ab <1.0 NEG [facility] Reference range: <1.0 NEG LABO RATORIES Unit: AI SCL-70 Ab (NOTE) [facility] Test performed at [facility] [address] ??[phone] Director: MELVA SOTO MD Specimen Anatomical Collection Method Collection Time Receive d Time (Source) Location / / Volume Laterality 02/23/2014 1:40 PM 4 1:53 CDT PM CDT Orlando Mckinley MD LAB_1 Performing Organization Address [facility] Phon e Number [facility] [phone] SM AND SM/LOCOMOTIVE SUPERVISOR ANTIBODIES (02/23/2014 1:40 PM CDT) Component Value Ref Test Analysis Performed At [facility] Range Method Time Signature Sm Antibody <1.0 NEG [facility] Reference range: <1.0 NEG LABO RATORIES Unit: AI Sm/LOCOMOTIVE SUPERVISOR <1.0 NEG [facility] Antibody Reference range: <1.0 NEG LABO RATORIES Unit: AI Sm/LOCOMOTIVE SUPERVISOR (NOTE) [facility] Antibody [facility] Test performed at [facility] [address] ??[phone] Director: MELVA SOTO MD Specimen Anatomical Collection Method Collection Time Receive d Time (Source) Location / / Volume Laterality 02/23/2014 1:40 PM 4 1:53 CDT PM CDT Orlando Mckinley MD LAB_1 Performing Organization Address City/[facility] Code Phon e Number [facility] [phone] (ABNORMAL) C-REACTIVE PROTEIN(aka CRP) [[id number]] (02/23/2014 1:40 [...] 02/23/2014 4:13 PM C DT Performed at [facility], [address] [place] [address] ??[phone] Orlando Mckinley MD LAB_1 Performing Organization Address [facility] Phon e Number [facility] [phone] CCP AB [4287] (02/23/2014 1:40 PM CDT) [...] - 02/26/2014 11:03 AM CDT Performed at [facility], [address] [place] [address] ??[address] Orlando Mckinley MD LAB_1 Performing Organization Address City/[facility] Phon e Number [facility] [phone] CREATININE / GFR [3711] (02/23/2014 1:40 PM [...] 02/23/2014 4:13 PM C DT Performed at [facility], [address] [place] [address] ??[phone] Orlando Mckinley MD LAB_1 Performing Organization Address [facility]/ZIP Code Phon e Number [facility] [phone] CALCIUM [0109] (02/23/2014 1:40 PM CDT) athologist Signature Calcium 10.1 8.4 - 10.2 [facility] mg/dl Specimen Anatomical Collection Method Collection Time Receive d Time (Source) Location / / Volume Laterality 02/23/2014 1:40 PM 4 1:53 CDT PM CDT Narrative [facility] - 02/23/2014 4:13 PM C DT Performed at [facility], [address] [place] [address] ??[phone] Orlando Mckinley MD LAB_1 Performing Organization Address [facility] Phon e Number [facility] [phone] ALT (SGPT) [0129] (02/23/2014 1:40 PM CDT) athologist Signature ALT (SGPT) 20 0 - 69 U/L [facility] Specimen Anatomical Collection Method Collection Time Receive d Time (Source) Location / / Volume Laterality 02/23/2014 1:40 PM 4 1:53 CDT PM CDT Narrative [facility] - 02/23/2014 4:13 PM C DT Performed at [facility], [address] [place] [address] ??[phone] Orlando Mckinley MD LAB_1 Performing Organization Address City/[facility]/ZIP Code Phon e Number [facility] [phone] AST [0128] (02/23/2014 1:40 PM CDT) P athologist Signature AST (SGOT) 27 0 - 66 U/L [facility] Specimen Anatomical Collection Method Collection Time Receive d Time (Source) Location / / Volume Laterality 02/23/2014 1:40 PM 4 1:53 CDT PM CDT Narrative [facility] - 02/23/2014 4:13 PM C DT Performed at [facility], [address] [place] [address] ??[address] Orlando Mckinley MD LAB_1 Performing Organization Address [facility] Phon e Number [facility] [phone] HEPATITIS C AB(aka ANTI-HCV) [0982] (02/23/2014 1:40 PM CDT) [facility] Method Time Signature Anti-HCV Negative (Non NEGNR [facility] Reactive) LABORATORIES Comment: Does Not Rule Out Infection wit h HCV Specimen Anatomical Collection Method Collection Time Receive d Time (Source) Location / / Volume Laterality 02/23/2014 1:40 PM 4 1:53 CDT PM CDT Narrative [facility] - 02/26/2014 12:15 PM CDT Performed at [facility], [address] [place] [address] ??[phone] Orlando Mckinley MD LAB_1 Performing Organization Address [facility] Phon e Number [facility] [phone] (ABNORMAL) UA MICRO IF [3307] (02/23/2014 1:40 PM CDT) [facility] Method Time Signature Urine Color Yellow [...] 02/23/2014 1:59 PM C DT Performed at [facility], [address] [place] [address] ??[address] Orlando Mckinley MD LAB_1 Performing Organization Address City/State/ZIP Code Phon e Number [facility] [phone] (ABNORMAL) HEMOGRAM/PLTS/DIFF [3656] (02/23/2014 1:40 PM CDT) [facility] Method Time Signature WBC 8.6 4.0 - [...] [facility] Lymph 24 % [facility] [place] 6 % [facility] Eos 1 % [facility] Baso 0 % [facility] Neutrophil 5.9 1.8 - 7.7 [facility] Absolute k/ul LAB[facility]ATORIES Lymph Absolute 2.1 1.0 - 4.8 [facility] k/ul [facility] [place] Absolute 0.5 0.1 - 0.7 [facility] k/ul [...] 02/23/2014 3:50 PM C DT Performed at [facility], [address] [place] [address] ??[phone] Orlando Mckinley MD LAB_1 Performing Organization Address City/State/ZIP Code Phon e Number [facility] [phone] (ABNORMAL) ESR [0017] (02/23/2014 1:40 PM CDT) P athologist Signature ESR 43 (H) 0 - 20 [facility] mm/hr Specimen Anatomical Collection Method Collection Time Receive d Time (Source) Location / / Volume Laterality 02/23/2014 1:40 PM 4 1:53 CDT PM CDT Narrative [facility] - 02/23/2014 4:49 PM C DT Performed at [facility], [address] [place] [address] ??[address] Orlando Mckinlye MD LAB_1 Performing Organization Address City/State/ZIP Code Phon e Number [facility] [phone] documented in this encounter Visit Diagnoses Diagnosis Screening for thyroid disorder - Primary Pain in joint, multiple sites documented in this encounter
--- OUTSIDE RECORDS SUMMARY | 2022-04-17 16:50 | XMS_ITS | Encounter Summary ---
:1990 Author Organization [facility] Address [address] [place] [address] Care Team Providers Name Role Phone Unavailable Primary Care Provider Unavailable Encounter Details Date Type Department Care Team Description 10/31/2013 Orders Only Rogelio Lloyd [facility] Marysol Vitale [facility] L, MOWING MACHINE OPERATOR, PROFESSIONAL FIGHTER examination, [address] unspecified (Primary SLICK [place] 5543 3 Dx) [phone] Social History Tobacco Use Types Packs/Day Years [...] EXTERNAL 5.60 RESULTS MIU/ML Comment: PERFORMED AT [facility] [place], [place] Specimen (Source) Anatomical Collection Method Collection Time Re ceived Time Location / / Volume Laterality 10/13/2013 9:24 AM CDT Marysol Vitale APRN, MATILDA LAB_1 Performing Organization Address [facility]/ZIP Code Phon e Number EXTERNAL RESULTS (ABNORMAL) LIPID PANEL AND DIRECT LDL(IF NEEDED) (10/13/2013 9:24 AM CDT) athologist Signature Cholesterol 342 (A) 0.0 - 200.0 EXTERNAL MG/DL RESULTS Comment: PERFORMED AT [facility] [place], [place] Triglyceride 193 30.0 - 200.0 MG/DL EXTERNAL RESULTS Comment: PERFORMED AT [place], [place] HDL 68 (A) 40 - 60 MG/DL EXTERNAL RESULTS Comment: PERFORMED AT [place], [place] LDL, Calc. 235 (A) 0 - 99 MG/DL EXTERNAL RESULTS Comment: PERFORMED AT [place], [place] Specimen (Source) Anatomical Collection Method Collection Time Re ceived Time Location / / Volume Laterality 10/13/2013 9:24 AM CDT Marysol Vitale APRN, CNP LAB_1 Performing Organization Address City/[facility]/ZIP Code Phon e Number EXTERNAL RESULTS (ABNORMAL) LDL CHOLESTEROL, DIRECT MEASURED (10/13/2013 9:24 AM CDT) athologist Signature LDL, Direct 263 (A) 0 - 99 EXTERNAL MG/DL RESULTS Comment: PERFORMED AT [facility] [place], [place] Specimen (Source) Anatomical Collection Method Collection Time Re ceived Time Location / / Volume Laterality 10/13/2013 9:24 AM CDT Marysol Vitale APRN, CNP LAB_1 Performing Organization Address [facility] Phon e Number EXTERNAL RESULTS HEMOGLOBIN, BLOOD (10/13/2013 9:24 AM CDT) athologist Signature Hemoglobin 12.6 12.0 - 16.0 EXTERNAL GM/DL RESULTS Comment: PERFORMED AT [facility] [place], [place] Specimen (Source) Anatomical Collection Method Collection Time Re ceived Time Location / / Volume Laterality 10/13/2013 9:24 AM CDT Marysol Vitale APRN, CNP LAB_1 Performing Organization Address [facility] Phon e Number EXTERNAL RESULTS GLUCOSE - FASTING > 8 HRS FASTING (V77.1) (10/13/2013 9:24 AM CDT) athologist Signature Glucose 90 70 - 99 EXTERNAL MG/DL RESULTS Comment: PERFORMED AT [facility] [place], [place] Specimen (Source) Anatomical Collection Method Collection Time Re ceived Time Location / / Volume Laterality 10/13/2013 9:24 AM CDT Marysol Vitale APRN, CNP LAB_1 Performing Organization Address [facility] Phon e Number EXTERNAL RESULTS documented in this encounter Visit Diagnoses Diagnosis Laboratory examination, unspecified - Pr imary documented in this encounter
--- OUTSIDE RECORDS SUMMARY | 2022-04-17 16:50 | XMS_ITS | Encounter Summary ---
:1990 Author Organization [facility] Address [address], [place] [address] Care Team Providers Name Role Phone Unavailable Primary Care Provider Unavailable Reason for Visit Reason Comments ROUTINE HEALTH MAINTENANCE Encounter Details Date Type Department Care Team Description 05/26/2013 Office Visit [facility] Nile Meraz general medical examination at health care facility (Primary Dx); Obstetrics and L, WHITE SUGAR BOILER, DATA ANALYTICS ARCHITECT Screening for malignant neoplasm of the cervix; Gynecology Screening examination for ve nereal disease; [address] Elevated lipids [place], [place] [address] Social History Tobacco Use Types [...] in this encounter Progress Notes Nile Vitale, WHITE SUGAR BOILER, DATA ANALYTICS ARCHITECT - 05/26/2013 10:58 AM CDT SUBJECTIVE: Juliette [...] findings: external genitalia normal, Bartholin's glands, urethra, [place]'s glands negative, vaginal mucosa normal, cervix clear, normal sized uterus, adnexae negative. Rectal Exam:rectal not indicated by age criteria and lack of symptoms ASSESSMENT: Satisfactory annual complaint analyst exam Pt had seen FP prov last yr for jt pain -+ MELISSA-was ref to rheumatology and hasn't been seen yet OCPs working well for BC-wishes to renew Elevated lipids 2011-see lab result PLAN: Pap smear Genprobe Pt will sched appt w a Statistical Modeler as rec by Dr Shultz-gave #s Re:elevated [...] .[She states she goes to college in [place] and is diff to sched appt -will try for Dec when on break] UTD on vaccines Flu vaccine today RTC in one year for Preventative exam and call if concerns PE: Reviewed health maintenance including diet, regular exercise and periodic exams. Nile Vitale CNP Rajwinder Anne CMA - 05/26/2013 10:48 AM CDT Pre-visit planning Does patient want a clean room technician present during exam? No PARA 0000 Health [...] PM CDT) P athologist Signature Source Cervix [facility] Chlamydia Negative NEG [facility] Comment: Test Performed by [facility] Mediated Amplification GC (N. gonorrhoeae) Negative NEG [facility] AT[facility] Comment: Test Performed by [facility] Mediated Amplification Specimen Anatomical Collection Method Collection Time Receive d Time (Source) Location / / Volume Laterality 05/26/2013 4:30 PM 3 4:35 CDT PM CDT Narrative [facility] - 05/29/2013 2:20 PM C DT Performed at [facility], [address] [place] [address] ??[phone] Nile Vitale WHITE SUGAR BOILER, DATA ANALYTICS ARCHITECT LAB_1 Performing Organization Address City/State/ZIP Code Phon e Number [facility] [phone] PAP TEST, ROUTINE (05/26/2013 4:30 PM CDT) Component Value Ref Test Analysis Performed At Patholo gist Range Method Time Signature Cytology (NOTE) [facility] [employer] Bi Consultant Cytology Report LABORATORI ES Patient Name: JULIETTE GAMING Taken: 05/26/2013 Received: 05/29/2013 Reported: 06/08/2013 Physician(s): NILE VITALE ([id number]) ?Source of Specimen Pap Test, Routine Cervical/Endocervical: ?Specimen Adequacy ?Satisfactory for evaluation. ??Endocervical component present. ? Final Cytologic Interpretation/Result NEGATIVE FOR INTRAEPITHELIAL LESION OR MALIGNANCY (NILM) ?Other Cytologic Findings Inflammation Electronically Signed Out By ELISHA Johnson (ASCP) ELISHA Johnson (ASCP) ? Pap Smear History Date of Last Menstrual Period: 05/21/2013 ?? Microscopic Description Microscopic examination is performed. [facility] Department of Pathology [address] [place] [address] ??[id number] Specimen Anatomical Collection Method Collection Time Receive d Time (Source) Location / / Volume Laterality 05/26/2013 4:30 PM 3 9:22 CDT AM CDT Nile Vitale APRN, MATILDA LAB_1 Performing Organization Address City/State/ZIP Code Phon e Number [facility] [phone] documented in this encounter Visit Diagnoses Diagnosis Routine general medical examination at [facility] facility - Primary Routine general medical examination at a [facility] facility Screening for malignant neoplasm of the cervix Screening examination for venereal disea se Elevated lipids (HRC) Other and unspecified hyperlipidemia documented in this encounter
--- OUTSIDE RECORDS SUMMARY | 2022-04-17 16:50 | XMS_ITS | Encounter Summary ---
:1990 Author Organization [facility] Address [address], [place] [address] Care Team Providers Name Role Phone Unavailable Primary Care Provider Unavailable Reason for Visit Reason Comments CONSULT Encounter Details Date Type Department Care Team Description 02/23/2014 Office Visit [place] Orlando Valle Pain in joint, multiple site s (Primary Dx); [address] 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 ds-DNA Ab ? Interpretation LABORATORIES VALUE [...] PM 4 1:53 CDT PM CDT Narrative [facility]IES - 02/27/2014 2:39 PM C DT Performed at [facility], [address] [place] [address] ??[phone] Orlando Mckinley MD LAB_1 Performing Organization Address City/State/ZIP Code Phon e Number [facility] [phone] RHEUMATOID FACTOR, QUANT(aka RFQ) [[id number]] (02/23/2014 1:40 PM CDT) athologist Signature Quant. Rheum. <9 0 - 11 [facility] Factor IU/ml LABORATORIES Specimen Anatomical Collection Method Collection Time Receive d Time (Source) Location / / Volume Laterality 02/23/2014 1:40 PM 4 1:53 CDT PM CDT Narrative [facility] - 02/23/2014 4:13 PM C DT Performed at [facility], [address] [place] [address] ??[phone] Orlando Mckinley MD LAB_1 [address] [facility] Phon e Number [facility] [phone] LYME ANTIBODY [[id number]] (02/23/2014 1:40 PM CDT) athologist Signature Lyme Antibody 0.38 0 - 0.74 [facility] OD Ratio LABORATORIES Comment: Negative Specimen Anatomical Collection Method Collection Time Receive d Time (Source) Location / / Volume Laterality 02/23/2014 1:40 PM 4 1:53 CDT PM CDT Narrative [facility] - 02/26/2014 12:08 PM CDT Performed at [facility], [address] [place] [address] ??[phone] Orlando Mckinley MD LAB_1 Performing Organization Address [facility] Phon e Number [facility] [phone] ANTI SS-A (RO) (02/23/2014 1:40 PM CDT) [facility] gist Method Time Signature Anti-SSA (Ro) <0.3 0 - 6.9 [facility] result U/mL LABORATORIES Anti-SSA (NOTE) [facility] Interpreta. Anti-SSA (Ro) ?Interpretation LABORATORIES VALUE ?of Test Results 0-6.9 ? Negative 7.0-10.0 ?Equivocal >10.0 ? Positive Specimen Anatomical Collection Method Collection Time Receive d Time (Source) Location / / Volume Laterality 02/23/2014 1:40 PM 4 1:53 CDT PM CDT Narrative [facility] [place] - 02/26/2014 11:03 AM CDT Performed at [facility], [address] [place] [address] ??[phone] Orlando Mckinley MD LAB_1 Performing Organization Address [facility] Phon e Number [facility] [phone] ANTI SS-B (LA) (02/23/2014 1:40 PM CDT) [facility] Method Time Signature Anti-SSB (La) <0.3 0 - 6.9 [facility] Result U/mL LABORATORIES Anti-SSB (NOTE) [facility] Interpreta. Anti-SSB ([place]) ?Interpretation LABORATORIES VALUE ?of Test Results 0-6.9 ? Negative 7.0-10.0 ?Equivocal >10.0 ? Positive Specimen Anatomical Collection Method Collection Time Receive d Time (Source) Location / / Volume Laterality 02/23/2014 1:40 PM 4 1:53 CDT PM CDT Narrative [facility] [place] - 02/26/2014 11:03 AM CDT Performed at [facility], [address] [place] [address] ??[phone] Orlando Mckinley MD LAB_1 Performing Organization Address City/[facility] Phon e Number [facility] [phone] AUTOABY TO JO1 AG (02/23/2014 1:40 PM CDT) Component Value Ref Test Analysis Performed At [facility] Range Method Time Signature DAKOTA-1 Antibody <1.0 NEG [facility] Reference range: <1.0 NEG LABO RATORIES Unit: AI DAKOTA-1 Antibody (NOTE) [facility] Test performed at [facility] [employer] [address] ??[id number] Director: MELVA SOTO MD Specimen Anatomical Collection Method Collection Time Receive d Time (Source) Location / / Volume Laterality 02/23/2014 1:40 PM 4 1:53 CDT PM CDT Orlando Mckinley MD LAB_1 Performing Organization Address City/[facility]/ZIP Code Phon e Number [facility] [phone] AUTOABY TO SCL 70 AG (02/23/2014 1:40 PM CDT) [facility] Method Time Signature SCL-70 Ab <1.0 NEG [facility] Reference range: <1.0 NEG LABO RATORIES Unit: AI SCL-70 Ab (NOTE) [facility] Test performed at [facility] [address] ??[id number] Director: MELVA SOTO MD Specimen Anatomical Collection Method Collection Time Receive d Time (Source) Location / / Volume Laterality 02/23/2014 1:40 PM 4 1:53 CDT PM CDT Orlando Mckinley MD LAB_1 Performing Organization Address [facility] Phon e Number [facility] [phone] SM AND SM/ASSISTANT MAINTENANCE MANAGER ANTIBODIES (02/23/2014 1:40 PM CDT) Component Value Ref Test Analysis Performed At [facility] Range Method Time Signature Sm Antibody <1.0 NEG [facility] Reference range: <1.0 NEG LABO RATORIES Unit: AI Sm/ASSISTANT MAINTENANCE MANAGER <1.0 NEG [facility] Antibody Reference range: <1.0 NEG LABO RATORIES Unit: AI Sm/ASSISTANT MAINTENANCE MANAGER (NOTE) [facility] Antibody LAB[facility]ATORIES Test performed at [facility] [address] ??[phone] Director: MELVA SOTO MD Specimen Anatomical Collection Method Collection Time Receive d Time (Source) Location / / Volume Laterality 02/23/2014 1:40 PM 4 1:53 CDT PM CDT Orlando Mckinley MD LAB_1 Performing Organization Address City/[facility]/ZIP Code Phon e Number [facility] [phone] (ABNORMAL) C-REACTIVE PROTEIN(aka CRP) [[id number]] (02/23/2014 1:40 PM CDT) [facility] Method Time Signature C-Reactive 2.9 (H) 0.0 - 0.9 [facility] Protein mg/dl LABORATORIES Comment: Note: results are expressed in mg/dL. Specimen Anatomical Collection Method Collection Time Receive d Time (Source) Location / / Volume Laterality 02/23/2014 1:40 PM 4 1:53 CDT PM CDT Narrative [facility] - 02/23/2014 4:13 PM C DT Performed at [facility], [address] [place] [address] ??[phone] Orlando Mckinley MD LAB_1 Performing Organization Address [facility] Phon e Number [facility] [phone] CCP AB [4287] (02/23/2014 1:40 PM CDT) [...] - 02/26/2014 11:03 AM CDT Performed at [facility], [address] [place] [address] ??[phone] Orlando Mckinley MD LAB_1 Performing Organization Address [facility] Phon e Number [facility] [phone] CREATININE / GFR [3711] (02/23/2014 1:40 PM [...] 02/23/2014 4:13 PM C DT Performed at [facility], [address] [place] [address] ??[phone] Orlando Mckinley MD LAB_1 Performing Organization Address City/[facility]/ZIP Code Phon e Number [facility] [phone] CALCIUM [0109] (02/23/2014 1:40 PM CDT) P athologist Signature Calcium 10.1 8.4 - 10.2 [facility] mg/dl Specimen Anatomical Collection Method Collection Time Receive d Time (Source) Location / / Volume Laterality 02/23/2014 1:40 PM 4 1:53 CDT PM CDT Narrative [facility] - 02/23/2014 4:13 PM C DT Performed at [facility], [address] [place] [address] ??[phone] Orlando Mckinley MD LAB_1 Performing Organization Address [facility]/ZIP Code Phon e Number [facility] [phone] ALT (SGPT) [0129] (02/23/2014 1:40 PM CDT) athologist Signature ALT (SGPT) 20 0 - 69 U/L [facility] Specimen Anatomical Collection Method Collection Time Receive d Time (Source) Location / / Volume Laterality 02/23/2014 1:40 PM 4 1:53 CDT PM CDT Narrative [facility] - 02/23/2014 4:13 PM C DT Performed at [facility], [address] [place] [address] ??[phone] Orlando Mckinley MD LAB_1 Performing Organization Address City/[facility] Phon e Number [facility] [phone] AST [0128] (02/23/2014 1:40 PM CDT) athologist Signature AST (SGOT) 27 0 - 66 U/L [facility] Specimen Anatomical Collection Method Collection Time Receive d Time (Source) Location / / Volume Laterality 02/23/2014 1:40 PM 4 1:53 CDT PM CDT Narrative [facility] - 02/23/2014 4:13 PM C DT Performed at [facility], [address] [place] [address] ??[phone] Orlando Mckinley MD LAB_1 Performing Organization Address City/[facility]/ZIP Code Phon e Number [facility] [phone] HEPATITIS C AB(aka ANTI-HCV) [0982] (02/23/2014 1:40 PM CDT) [facility] Method Time Signature Anti-HCV Negative (Non NEGNR [facility] Reactive) LABORATORIES Comment: Does Not Rule Out Infection wit h HCV Specimen Anatomical Collection Method Collection Time Receive d Time (Source) Location / / Volume Laterality 02/23/2014 1:40 PM 4 1:53 CDT PM CDT Narrative [facility] - 02/26/2014 12:15 PM CDT Performed at [facility], [address] [place] [address] ??[phone] Orlando Mckinley MD LAB_1 Performing Organization Address [facility] Code Phon e Number [facility] [phone] (ABNORMAL) UA MICRO IF [3307] (02/23/2014 1:40 PM CDT) [facility] Method Time Signature Urine Color [...] 02/23/2014 1:59 PM C DT Performed at [facility], [address] [place] [address] ??[phone] Orlando Mckinley MD LAB_1 Performing Organization Address City/[facility]/ZIP Code Phon e Number [facility] [phone] (ABNORMAL) HEMOGRAM/PLTS/DIFF [3656] (02/23/2014 1:40 PM CDT) [...] [facility] Lymph 24 % [facility] Yates 6 % [facility] Eos 1 % [facility] Baso 0 % [facility] Neutrophil 5.9 1.8 - 7.7 [facility] Absolute k/ul LABORATORIES Lymph Absolute 2.1 1.0 - 4.8 [facility] k/ul LABORATORIES Yates Absolute 0.5 0.1 - 0.7 [facility] k/ul [...] 02/23/2014 3:50 PM C DT Performed at [facility], [address] [place] [address] ??[phone] Orlando Mckinley MD LAB_1 Performing Organization Address City/State/ZIP Code Phon e Number [facility] [phone] (ABNORMAL) ESR [0017] (02/23/2014 1:40 PM CDT) P athologist Signature ESR 43 (H) 0 - 20 [facility] mm/hr Specimen Anatomical Collection Method Collection Time Receive d Time (Source) Location / / Volume Laterality 02/23/2014 1:40 PM 4 1:53 CDT PM CDT Narrative MG LABORATORIES - 02/23/2014 4:49 PM C DT Performed at [facility], [address] [place] [address] ??[phone] Orlando Mckinley MD LAB_1 Performing Organization Address City/State/ZIP Code Phon e Number [facility] [phone] documented in this encounter Visit Diagnoses Diagnosis Pain in joint, multiple sites - Primary Positive MELISSA (antinuclear antibody) Other and unspecified nonspecific immuno logical findings Screening for thyroid disorder - Primary Pain in joint, multiple sites documented in this encounter
--- OUTSIDE RECORDS SUMMARY | 2022-04-17 16:50 | XMS_ITS | Encounter Summary ---
:1990 [facility] Address [address] [place] [address] Care Team Providers Name Role Phone Unavailable Primary Care Provider Unavailable Encounter Details Date Type Department Care Team Description 02/23/2014 Notes/Orders [facility] Marysol Vitale for thyroid Obstetrics and L, MARKETING PLANNER, GROUP CIO disorder Gynecology [address] [place], [place] [address] Social History Tobacco Use Types [...] 02/23/2014 4:34 PM C DT Performed at [facility], [address] [place] [address] ??[phone] Marysol Vitale APRN, GROUP CIO LAB_1 Performing Organization Address City/State/ZIP Code Phon e Number [facility] [phone] documented in this encounter Visit Diagnoses Diagnosis Screening for thyroid disorder documented in this encounter
--- OUTSIDE RECORDS SUMMARY | 2022-04-17 16:50 | XMS_ITS | Encounter Summary ---
:1990 Author Organization [facility] Address [address], [place] [address] Care Team Providers Name Role Phone Unavailable Primary Care Provider Unavailable Reason for Visit Reason Onset Date Comments REFERRAL REQUEST 10/13/2013 Encounter Details Date Type Department Care Team Description 10/13/2013 Telephone [facility] Marysol Vitale, REFERRAL REQUEST Obstetrics and Gynec ology PERFORMANCE INSTRUCTOR, DIESEL SERVICE APPRENTICE [address] [place], [place] [address] Social History Tobacco Use Types [...] orders for fasting lab work faxed to [phone]. Orders on chart per Evie Vitale. Faxed to number given by pt. Pt informed and given fax number to have results sent here. Brooke Linder RN 8:58 AM Javan Hightower - 10/13/2013 8:20 AM CDT What referral/order is being requested: Needing document stating needs labs done. Why is the referral/order needed: will not draw blood at [facility] unless pt has written documentation. Is it okay to leave detailed message on your voicemail? yes [[facility]/Appt Center: If this call is after 3 p.m., communicate to patient: If we are not able to get back to you by the end of the day and your symptoms worsen please contact the Careline] [[employer] Desk: Please inform patient that a referral does [...] 02/23/2014 4:34 PM C DT Performed at [facility], [address] [place] [address] ??[phone] Marysol Vitale PERFORMANCE INSTRUCTOR, DIESEL SERVICE APPRENTICE LAB_1 Performing Organization Address City/State/ZIP Code Phon e Number [facility] [phone] HEMOGLOBIN, BLOOD (12/14/2013 12:35 PM CDT) athologist Signature Hemoglobin 12.9 12.0 - 16.0 [facility] g/dl Specimen Anatomical Collection Method Collection Time Receive d Time (Source) Location / / Volume Laterality 12/14/2013 12:35 12/14/2013 PM CDT 12:36 PM CDT Narrative [facility] - 12/14/2013 3:46 PM C DT Performed at [facility], [address] [place] [address] ??[phone] Marysol Vitale APRN, CNP LAB_1 Performing Organization Address City/State/ZIP Code Phon e Number [facility] [phone] documented in this encounter Visit Diagnoses Diagnosis Hypercholesterolemia - Primary Pure hypercholesterolemia Screening for thyroid disorder Screening for diabetes mellitus Screening, iron deficiency anemia Screening for iron deficiency anemia Hypercholesterolemia Pure hypercholesterolemia Abnormal TSH Other abnormal clinical finding Screening, iron deficiency anemia Screening for iron deficiency anemia Screening for thyroid disorder documented in this encounter
--- OUTSIDE RECORDS SUMMARY | 2022-04-17 16:50 | XMS_ITS | Encounter Summary ---
:[address] [address] Address [address], [place] [address] Care Team Providers Name Role Phone Unavailable Primary Care Provider Unavailable Reason for Visit Reason Comments MEDICATION CHECK refill Encounter Details Date Type Department Care Team Description 07/29/2010 Office Visit Elaine López Maj or depressive disorder, single episode, moderate (Primary Dx); Practice MD Contraceptive surveillance [address] Rogelio Lloyd [facility] [address] [place] [phone] Social History Tobacco Use Types Packs/Day Years Used Date Smoking Tobacco: Never Alcohol Use Standard Drinks/Week Comments No 0 (1 standard drink = 0.6 oz pure alcoho l) Sex Assigned at Date Recorded Not on file documented as of this encounter Last Filed Vital Signs Vital Sign Reading Time Taken Comments Blood Pressure 104/54 07/29/2010 4:48 PM COAT OPERATOR Pulse 80 07/29/2010 4:48 PM COAT OPERATOR Temperature - - Respiratory Rate - - Oxygen Saturation - - Inhaled Oxygen Concentration - - Weight 58.5 kg (129 lb) 07/29/2010 4:48 PM COAT OPERATOR Height - - Body Mass Index 23.79 03/06/2010 4:05 PM CDT documented in this encounter Progress Notes Elaine Shultz MD - 07/30/2010 10:53 AM COAT OPERATOR DATE OF SERVICE: 07/29/2010 This is a [...] Dictated: 07/29/2010 17:10:41 Transcribed: 07/30/2010 08:46:13 Job: [id number] Doc: [id number] cc: OPERATOR Elaine Shultz MD - 07/29/2010 5:10 PM CST This office note has been dictated. Elaine Shultz MD OPERATOR documented in this encounter Plan of Treatment Not on filedocumented as of this encounter Visit Diagnoses Diagnosis Major depressive disorder, single episod e, moderate ([facility]) - Primary Major depressive disorder, single episod e, moderate Contraceptive surveillance Contraceptive surveillance, unspecified documented in this encounter
--- OUTSIDE RECORDS SUMMARY | 2022-04-17 16:51 | XMS_ITS | Encounter Summary ---
:1990 Author Organization [facility] Address [address] [place] [address] Care Team Providers Name Role Phone Jack, Justina Kowalski MD Primary Care Provider Unavailable Encounter Details Date Type Department Care Team Description 07/13/2007 Orders Only [facility] Routine or Child [address] [employer] Health [place] [address] Social History Tobacco Use Types [...] or Re sults for this COUNT-NO DIFF CELLULAR EQUIPMENT REPAIRER Child Health Check procedur e are in the results section. LIPID PANEL, FAST > Routine 07/13/2007 7:42 AM Routine or Results for this 12 HOUR CELLULAR EQUIPMENT REPAIRER Child Health Check procedure are in the results section. documented in this encounter Results (ABNORMAL) HEMOGRAM/PLTS (07/13/2007 7:42 AM CELLULAR EQUIPMENT REPAIRER) P athologist Signature WBC 5.5 4.0 - 11.0 [facility] k/ul RBC 4.30 4.1 - 5.1 [facility] M/ul Hemoglobin 11.4 (L) 12.0 - [facility] 16.0 g/dl HCT 35.6 (L) 36.0 - [facility] 46.0 % MCV 82.7 78 - 98 fl [facility] MCH 26.5 25 - 35 pg [facility] MCHC 32.1 32 - 36 % [facility] RDW 14.3 11.5 - [facility] 14.5 % Platelets 310 150 - 450 [facility] k/ul Specimen Anatomical Collection Method Collection Time Receive d Time (Source) Location / / Volume Laterality 07/13/2007 7:42 AM 7 7:43 CELLULAR EQUIPMENT REPAIRER AM CELLULAR EQUIPMENT REPAIRER Justina Santiago MD LAB_1 Performing Organization Address City/[facility] Phon e Number [facility] [phone] [facility] [address] [address] CHOLESTEROL LIPID PANEL FAST >12HR (07/13/2007 7:42 AM CELLULAR EQUIPMENT REPAIRER) P athologist Signature Cholesterol 198 <200 mg/dl [facility] Triglyceride 93 <200 mg/dl [facility] HDL 55 >35 mg/dl [facility] LDL, Calc. 124 mg/dl [facility] Hours Fasting 12 hours [facility] Specimen Anatomical Collection Method Collection Time Receive d Time (Source) Location / / Volume Laterality 07/13/2007 7:42 AM 7 7:43 CELLULAR EQUIPMENT REPAIRER AM CELLULAR EQUIPMENT REPAIRER Justina Santiago MD LAB_1 Performing Organization Address City/[facility] Phon e Number [facility] [phone] [facility] [address] [address] documented in this encounter Visit Diagnoses Diagnosis Routine infant or child health check documented in this encounter Care Teams Scrap Metal Processing Worker Relationship Specialty Start Date End Date Justina Santiago MD PCP - General 04/25/07 02/03/10 documented as of this encounter
--- OUTSIDE RECORDS SUMMARY | 2022-04-17 16:51 | XMS_ITS | Encounter Summary ---
:1990 Author Organization [facility] Address [address] [place] [address] Care Team Providers Name Role Phone Justina [...] on filedocumented in this encounter Care Teams Director Of Event Sales Relationship Specialty Start Date End Date Justina Santiago MD PCP - General 04/25/07 02/03/10 documented as of this encounter
--- OUTSIDE RECORDS SUMMARY | 2022-04-17 16:51 | XMS_ITS | Encounter Summary ---
:1990 [facility] Address [address] [place] [address] Care Team Providers Name Role Phone Unassigned, Provider Primary Care Provider Unavailable Encounter Details Date Type Department Care Team Description 05/10/2006 Correspondence [place] Justina Santiago, PHYSICAL EXAM/ [facility] [address] [place], [place] [address] Social History Tobacco Use Types [...] on filedocumented in this encounter Care Teams Internal Wholesaler Relationship Specialty Start Date End Date Unassigned, Provider PCP - General 05/05/00 04/24/07 [address] [place] [address] documented as of this encounter
--- OUTSIDE RECORDS SUMMARY | 2022-04-17 16:51 | XMS_ITS | Encounter Summary ---
:1990 Author Organization [facility] Address [address], [place] [address] Care Team Providers Name Role Phone Unavailable Primary Care Provider Unavailable Reason for Visit Reason Comments DEPRESSION Encounter Details Date Type Department Care Team Description 02/06/2010 Office Visit Elaine López, or Depressive Practice MD Disorder, Single [address] Episode, Mod[place], [place] [address] [address] (Primary Dx) [phone] [place] [address] (Wo rk) Social History Tobacco Use Types [...] are suffering from depression, please contact the [facility] to schedule an appointment. documented in this [...] score today is 17. ASSESSMENT AND PLAN: [id number] female with major depression, moderate. 1. Had [...] Major depressive disorder, single episod e, moderate ([facility]) - Primary Major depressive disorder, single episod e, moderate documented in this encounter
--- OUTSIDE RECORDS SUMMARY | 2022-04-17 16:51 | XMS_ITS | Encounter Summary ---
:1990 Author Organization [facility] Address [address] [place] [address] Care Team Providers Name Role Phone Justina Santiago MD Primary Care Provider Unavailable Encounter Details Date Type Department Care Team Description 04/22/2009 [facility] Nursing [address] [place] [address] [id number] Social History Tobacco Use Types Packs/Day Years Used Date Smoking Tobacco: Never Alcohol Use Standard Drinks/Week Comments Not Asked 0 (1 standard drink = 0.6 oz pure alcoho l) Sex Assigned at Date Recorded Not on file documented as of this encounter Plan of Treatment Not on filedocumented as of this encounter Visit Diagnoses Not on filedocumented in this encounter Care Teams Coater Hand Relationship Specialty Start Date End Date Justina Santiago MD PCP - General 04/25/07 02/03/10 documented as of this encounter
--- OUTSIDE RECORDS SUMMARY | 2022-04-17 16:51 | XMS_ITS | Encounter Summary ---
:1990 Author Organization [facility] Address [address] [place] [address] Care Team Providers Name Role Phone Justina Santiago MD Primary Care Provider Unavailable Reason for Visit Reason Onset Date Comments LAB TESTS, NOS 07/08/2007 Encounter Details Date Type Department Care Team Description 07/08/2007 Telephone [facility] Justina Santiago MD LAB [place] [address] [employer] [place], [place] [address] Social History Tobacco Use Types [...] this Telephone Encounter to the following pool:cn. ITY SYSTEM MANAGER documented in this encounter Plan of Treatment Not on filedocumented as of this encounter Visit Diagnoses Not on filedocumented in this encounter Care Teams Msws Relationship Specialty Start Date End Date Justina Santiago MD PCP - General 04/25/07 02/03/10 documented as of this encounter
--- OUTSIDE RECORDS SUMMARY | 2022-04-17 16:51 | XMS_ITS | Encounter Summary ---
:1990 Author Organization [facility] Address [address] [place] [address] Care Team Providers Name Role Phone Justina [...] GARTH OLIVAS PROVIDER - 07/21/2007 12:00 AM SPRING FORGER documented in this encounter Plan of Treatment Not on filedocumented as of this encounter Visit Diagnoses Not on filedocumented in this encounter Care Teams Certified Orthoptist Relationship Specialty Start Date End Date Justina Santiago MD PCP - General 04/25/07 02/03/10 documented as of this encounter
--- OUTSIDE RECORDS SUMMARY | 2022-04-17 16:51 | XMS_ITS | Encounter Summary ---
:1991 Author Organization [facility] Address [address] [place] [address] Care Team Providers Name Role Phone Unassigned, Provider Primary Care Provider Unavailable Reason for Visit Reason Onset Date Comments QUESTIONS, GENERAL 07/12/2006 Encounter Details Date Type Department Care Team Description 07/12/2006 Telephone Rogelio Lloyd Family Unknown, Phys ician QUESTIONS, neonatal social worker [address] [address] [email or web address] [place] [phone] (Wo rk) Social History Tobacco Use Types [...] Sat.07/10/06. Not seen by anyone except by assistive technology trainer of hockey team. No loss of [...] if new symptoms develop. Chrissie Perez RN BRIM IRONER Pebbles Ashton - 07/12/2006 3:50 PM CST Daughter was injured in a hockey game,Sat 07-10-06; she had grade 1 concussion. Has questions ?? BRIM IRONER documented in this encounter Plan of Treatment Not on filedocumented as of this encounter Visit Diagnoses Not on filedocumented in this encounter Care Teams Aircraft Landing Gear Inspector Relationship Specialty Start Date End Date Unassigned, Provider PCP - General 05/05/00 04/24/[address] [place] [address] documented as of this encounter
--- OUTSIDE RECORDS SUMMARY | 2022-04-17 16:51 | XMS_ITS | Encounter Summary ---
:1990 Author [facility] Address [address] [place] [address] Care Team Providers Name Role Phone Justina Santiago MD Primary Care Provider Unavailable Reason for Visit Reason Comments CONSULT birthcontrol consult. Encounter Details Date Type Department Care Team Description 05/16/2009 Office Visit Justina Pacheco, Contr ol (Primary Dx); Pediatrics Need for Prophylactic Vaccin ation and Inoculation Against Varicella; [address] [place] [address] Social History Tobacco Use Types Packs/Day [...] 3:15 PM CDT >> Jessika Astudillo CMA [facility] May 16, 2009 3:[address] Santiago [...] Negative [facility] Comment: Test Performed by Wrecking Crane Engine Operator Mediated Amplification Source Urine [facility] Specimen Anatomical Collection Method Collection Time Receive d Time (Source) Location / / Volume Laterality 05/16/2009 4:05 PM 9 4:09 CDT PM CDT Justina Santiago MD LAB_1 Performing Organization Address City/State/ZIP Code Phon e Number [facility] [phone] [phone] TEST (URINE) (05/16/2009 4:05 PM CDT) Component Value Ref Test Analysis Performed At [facility] Range Method Time Signature HCG, Urine Negative [facility] Negative = <25 mIU/ml If is suspected, suggest repeat in 48-72 hours or confirm results with a quantitative hCG test. Specimen Anatomical Collection Method Collection Time Receive d Time (Source) Location / / Volume Laterality Urine specimen 05/16/2009 4:05 PM 009 4:09 (specimen) CDT PM CDT Justina Santiago MD LAB_1 Performing Organization Address City/State/ZIP Code Phon e Number [facility] [phone] [phone] documented in this encounter Visit Diagnoses Diagnosis control - Primary Unspecified contraceptive management Need for prophylactic vaccination and in oculation against varicella Screening Screening for unspecified condition documented in this encounter Care Teams Marine Structural Designer Relationship Specialty Start Date End Date Justina Santiago MD PCP - General 04/25/07 02/03/10 documented as of this encounter
--- OUTSIDE RECORDS SUMMARY | 2022-04-17 16:51 | XMS_ITS | Encounter Summary ---
:1990 Author Organization [facility] Address [address] [address] Care Team Providers Name Role Phone Jack, Justina Kowalski MD Primary Care Provider Unavailable Reason for Visit Reason Comments IMMUNIZATIONS HPV #2 Encounter Details Date Type Department Care Team Description 07/13/2007 Office Visit [facility] Need Vac cination-Viral Department Disease (Primary Dx) [address] [place], [place] [address] Social History Tobacco Use Types [...] documentation. Zo Swan LPN 07/13/2007 8:50 AM ICIAN EXECUTIVE documented in this encounter Plan of Treatment Not on filedocumented as of this encounter Visit Diagnoses Diagnosis Need for prophylactic vaccination and in oculation against other viral diseases(V04.89) - Primary Need for prophylactic vaccination and in oculation against other viral diseases documented in this encounter Care Teams Slaughterer Religious Ritual Relationship Specialty Start Date End Date Justina Santiago MD PCP - General 04/25/07 02/03/10 documented as of this encounter
--- OUTSIDE RECORDS SUMMARY | 2022-04-17 16:51 | XMS_ITS | Encounter Summary ---
:1990 Author [facility] Address [address] [place] [address] Care Team Providers Name Role Phone Justina Santiago MD Primary Care Provider Unavailable Reason for Visit Reason Onset Date Comments Medication Questions 05/22/2009 [facility] Encounter Details Date Type Department Care Team Description 05/22/2009 Telephone [place] Pediatri cs Justina Santiago, Medication Questions [address] Jani Gipson MD (BCP) [place], [place] [address] Social History Tobacco Use Types [...] on filedocumented in this encounter Care Teams Crossword Puzzle Maker Relationship Specialty Start Date End Date Justina Santiago MD PCP - General 04/25/07 02/03/10 documented as of this encounter
--- OUTSIDE RECORDS SUMMARY | 2022-04-17 16:51 | XMS_ITS | Encounter Summary ---
:1990 Author Organization [facility] Address [address] [place] [address] Care Team Providers Name Role Phone Unassigned, Provider Primary Care Provider Unavailable Encounter Details Date Type Department Care Team Description 07/16/2006 Correspondence None Unknown, Physici an CONSENT AND RELEASE [address] [place] [address] (Wo rk) Social History Tobacco Use Types Packs/Day Years Used Date Smoking Tobacco: Never Alcohol Use Standard Drinks/Week Comments Not Asked 0 (1 standard drink = 0.6 oz pure alcoho l) Sex Assigned at Date Recorded Not on file documented as of this encounter Progress Notes Unknown, Physician - 07/16/2006 12:00 AM PERFORATOR OPERATOR documented in this encounter Plan of Treatment Not on filedocumented as of this encounter Visit Diagnoses Not on filedocumented in this encounter Care Teams Senior Statistical Programmer Relationship Specialty Start Date End Date Unassigned, Provider PCP - General 05/05/00 04/24/07 [address] [place] [address] documented as of this encounter
--- OUTSIDE RECORDS SUMMARY | 2022-04-17 16:51 | XMS_ITS | Encounter Summary ---
:1990 Author Organization [facility] Address [address] [place] [address] Care Team Providers Name Role Phone Justina Santiago MD Primary Care Provider Unavailable Reason for Referral Specialty Diagnoses / Procedures Referred By Contact Refer red To Contact Justina Santiago MD [facility] [address] [place] [address] Referral ID Status Reason Start Date Expiration [...] or Child Heal th Check (Primary Dx); [address] Jani Gipson MD Vaccin 1 Bacteria NEC; [place] [address] Need Vaccination-Viral Disea se; [phone] Back Pain Social History Tobacco Use Types [...] 05/05/2007 3:00 PM CD T Growth Chart: [facility] (Girls, 2-20 Years) documented in this encounter Patient Instructions Patient Vybubannnqsr56/04/2007 3:01 PM CDT It has been a pleasure attending to Juliette's health maintenance needs today. documented in this encounter Progress Notes Justina Santiago - 05/05/2007 3:01 PM CDT S> Juliette Gaming is a 16 yr female who presents accompanied by her mother for routine child and adolescent psychologist. PARENTAL/PATIENT CONCERNS: occasional back and shoulder pain, no known injury SCHOOL Name: [employer] Grade: 10th Success: b's SPORTS/RECREATION/ACTIVITIES Sports: hockey [...] 3:00 PM CDT >> Jessika Astudillo CMA [facility] May 05, 2007 3:[address] Santiago has given the verbal ok to give immunizations to this patient. Please see immunization documentation for additional information. Jessika Astudillo CMA >> Jessika Astudillo CMA [facility] May 05, 2007 3:01 PM Eye exam: L: 20/ 20, R: 20/ 20 Lenses: NO documented in this encounter Plan of Treatment Not on filedocumented as of this encounter Results (ABNORMAL) HEMOGRAM/PLTS (07/13/2007 7:[address] TH[address] ORDER TAKER) athologist Signature WBC 5.5 4.0 - 11.0 [facility] k/ul RBC 4.30 4.1 - 5.1 [facility] M/ul Hemoglobin 11.4 (L) 12.0 - [facility] 16.0 g/dl HCT 35.6 (L) 36.0 - [facility] 46.0 % MCV 82.7 78 - 98 fl [facility] MCH 26.5 25 - 35 pg [facility] MCHC 32.1 32 - 36 % [facility] RDW 14.3 11.5 - [facility] 14.5 % Platelets 310 150 - 450 [facility] k/ul Specimen Anatomical Collection Method Collection Time Receive d Time (Source) Location / / Volume Laterality 07/13/2007 7:42 AM 7 7:43 DRIVE THRU ORDER TAKER AM DRIVE THRU ORDER TAKER Justina Santiago MD LAB_1 Performing Organization Address City/[facility]/ZIP [facility] Phon e Number We [phone] [phone] CHOLESTEROL LIPID PANEL FAST >12HR (07/13/2007 7:[address] ORDER TAKER) athologist Signature Cholesterol 198 <200 mg/dl [facility] Triglyceride 93 <200 mg/dl [facility] HDL 55 >35 mg/dl [facility] LDL, Calc. 124 mg/dl [facility] Hours Fasting 12 hours [facility] Specimen Anatomical Collection Method Collection Time Receive d Time (Source) Location / / Volume Laterality 07/13/2007 7:42 AM 7 7:43 DRIVE THRU ORDER TAKER AM DRIVE THRU ORDER TAKER Justina Santiago MD LAB_1 Performing Organization Address [facility] Phon e Number We [phone] [facility] [address] [place] [phone] documented in this encounter Visit Diagnoses Diagnosis Routine or child health check - P rimary Need for other specified prophylactic va ccination against single bacterial disease Need for prophylactic vaccination and in oculation against other viral diseases(V04.89) Need for prophylactic vaccination and in oculation against other viral diseases Back pain Backache, unspecified documented in this encounter Care Teams Flexo Operator Relationship Specialty Start Date End Date Justina Santiago MD PCP - General 04/25/07 02/03/10 documented as of this encounter
--- OUTSIDE RECORDS SUMMARY | 2022-04-17 16:51 | XMS_ITS | Encounter Summary ---
:1990 Author [facility] Address [address] [place] [address] Care Team Providers Name Role Phone Justina Santiago MD Primary Care Provider Unavailable Encounter Details Date Type Department Care Team Description 03/07/2009 Emergency Room External to [facility], Provider ITCHING Social History Tobacco Use [...] on filedocumented in this encounter Care Teams Beer Still Runner Compounder Relationship Specialty Start Date End Date Justian Santiago MD PCP - General 04/25/07 02/03/10 documented as of this encounter
--- OUTSIDE RECORDS SUMMARY | 2022-04-17 16:51 | XMS_ITS | Encounter Summary ---
:1990 Author [facility] Address [address] [place] [address] Care Team Providers Name Role Phone Jack, Justina Kowalski MD Primary Care Provider Unavailable Reason for Visit Reason Onset Date Comments COUGH 05/19/2009 Encounter Details Date Type Department Care Team Description 05/19/2009 Telephone [facility] Unknown, Physician COUGH [address] [place], [place] [address] [place] [address] [phone] (Wo rk) Social History Tobacco Use Types [...] care system is the patient affiliated with? [facility] Situation:pt has fever ,body aches and vomited yesterday. A nurse will call you back within the next hour. If you have not heard from a nurse, please feel free to call us back at [phone] and state that you are waiting for a callback. documented in this encounter Plan of Treatment Not on filedocumented as of this encounter Visit Diagnoses Not on filedocumented in this encounter Care Teams User Interface Artist Relationship Specialty Start Date End Date Justina Santiago MD PCP - General 04/25/07 02/03/10 documented as of this encounter
--- OUTSIDE RECORDS SUMMARY | 2022-04-17 16:51 | XMS_ITS | Encounter Summary ---
:1990 Author Organization [facility] Address [address] [place] [address] Care Team Providers Name Role Phone Unassigned, [...] on filedocumented in this encounter Care Teams Lard Maker Relationship Specialty Start Date End Date Unassigned, Provider PCP - General 05/05/00 04/24/[address] [place] [address] documented as of this encounter
--- OUTSIDE RECORDS SUMMARY | 2022-04-17 16:51 | XMS_ITS | Encounter Summary ---
:[address] [facility] Address [address], [place] [address] Care Team Providers Name Role Phone Unassigned, Provider Primary Care Provider Unavailable Reason for Visit Reason Comments BACK PAIN, LOW no known injury. started chaka ting on wednesday. Encounter Details Date Type Department Care Team Description 02/25/2007 Office Visit [facility] Pediatri cs Justina Santiago, Back Pain (Primary Dx) [address] [address] [place] [place] [address] Social History Tobacco Use Types [...] 02/25/2007 2:20 PM CD T Growth Chart: [facility] (Girls, 2-20 Years) documented in this [...] unspecified documented in this encounter Care Teams Ed Physicians Relationship Specialty Start Date End Date Unassigned, Provider PCP - General 05/05/00 04/24/[address] [place] [address] documented as of this encounter
--- OUTSIDE RECORDS SUMMARY | 2022-04-17 16:51 | XMS_ITS | Encounter Summary ---
:1990 Author Organization [facility] Address [address] [place] [address] Care Team Providers Name Role Phone Unassigned, Provider Primary Care Provider Unavailable Reason for Visit Reason Onset Date Comments INJURY, NOS 07/14/2006 head Encounter Details Date Type Department Care Team Description 07/14/2006 Telephone ETC Education Family Jack, Justina Kowalski MD IN [facility], NOS (head) Practice [address] [place], [place] [address] Social History Tobacco Use Types [...] ice for short time. Patient transferred to studio receptionist to set up appt. LE APPLICATION ENGINEER Jessika Astudillo - 07/15/2006 2:31 PM CST Left message to call back. LE APPLICATION ENGINEER Jessika Astudillo - 07/14/2006 5:01 PM CST Left message to call back. LE APPLICATION ENGINEER Justina Santiago - 07/14/2006 4:54 PM CST She does not need to come in if she is free of symptoms. LE APPLICATION ENGINEER Eliza Malik - 07/14/2006 9:07 AM CST Recieved a mild concussion on Sat. In hockey. Does she need to come in. Eliza Malik LE APPLICATION ENGINEER documented in this encounter Plan of Treatment Not on filedocumented as of this encounter Visit Diagnoses Not on filedocumented in this encounter Care Teams Quality Worker Relationship Specialty Start Date End Date Unassigned, Provider PCP - General 05/05/00 04/24/[address] [place] [address] documented as of this encounter
--- OUTSIDE RECORDS SUMMARY | 2022-04-17 16:51 | XMS_ITS | Encounter Summary ---
:1990 Author Organization Counts include 234 beds at the [facility] Address [address], [place] [address] Care Team Providers Name Role Phone Unassigned, Provider Primary Care Provider Unavailable Reason for Visit Reason Comments CONSULT allergy Encounter Details Date Type Department Care Team Description 12/23/2004 Office Visit [facility] DEYANIRA Willis RHINITIS; [address] Michael Gilmore MD COUGH [place], [place] [address] Social History Tobacco Use Types [...] 12/23/2004 2:19 PM CD T Growth Chart: [facility] (Girls, 2-20 Years) documented in this encounter Progress Notes 12/23/2004 2:30 PM CDT AUTHOR: MANDO WILLIS ALLERGY EVALUATION (NEW PATIENT) SUBJECTIVE: This 14 y/o, w/f, who was born in and has lived in [place], was apparently self- referred to our allergy [...] today for Allergy Department visit. Phone #: [phone]. Spirometry/Peakflow done-NO. No current outpatient prescriptions on file. Shirley Turner LPN, 2:19 PM, 12/23/2004 documented in this encounter Plan of Treatment Not on filedocumented as of this encounter Visit Diagnoses Diagnosis Chronic rhinitis Cough documented in this encounter Care Teams Bridge Painter Helper Relationship Specialty Start Date End Date Unassigned, Provider PCP - General 05/05/00 04/24/[address] [place] [address] documented as of this encounter
--- OUTSIDE RECORDS SUMMARY | 2022-04-17 16:51 | XMS_ITS | Encounter Summary ---
:1990 Author Organization [facility] Address [address] [place] [address] Care Team Providers Name Role Phone Unassigned, [...] (Primary Dx); Practice MD ACUTE PHARYNGITIS(SORE THROAT); [address] [place] [address] [place], [place] [phone] Social History Tobacco Use Types Packs/Day Years [...] 36.1 ??C (97 ??F) 10/31/2004 1:35 PM DISTRIBUTION ASSOCIATE Respiratory Rate - - Oxygen Saturation - - Inhaled Oxygen Concentration - - Weight 40.8 kg (90 lb) 10/31/2004 1:35 PM DISTRIBUTION ASSOCIATE Height - - Body Mass Index - - documented in this encounter Progress Notes 10/31/2004 1:20 PM DISTRIBUTION ASSOCIATE SUBJECTIVE: Juliette Gaming is a 14 yr [...] PM Acute Res ults for this SCREEN DISTRIBUTION ASSOCIATE Pharyngitis(Sore procedure a re in Throat) the results section. documented in this encounter Results STREP GRP A, RAPID SCREEN (10/31/2004 1:38 PM DISTRIBUTION ASSOCIATE) [facility] Method Time Signature Patient Home None [employer] Phone # Patient Work None [facility] Phone # Grp A Rapid Negative NEG [facility] Screen Grp A Culture Negative NEG [facility] Final Specimen Anatomical Collection Method Collection Time Receive d Time (Source) Location / / Volume Laterality 10/31/2004 1:38 PM 5 1:39 DISTRIBUTION ASSOCIATE PM DISTRIBUTION ASSOCIATE Lyle Orozco MD LAB_1 Performing Organization Address City/State/ZIP Code Phon e Number [facility] [phone] [facility] [address] [phone] documented in this encounter Visit Diagnoses Diagnosis Acute upper respiratory infections of un specified site - Primary Acute pharyngitis Backache, unspecified documented in this encounter Care Teams Checking Clerk Relationship Specialty Start Date End Date Unassigned, Provider PCP - General 05/05/00 04/24/07 [address] [place] [address] documented as of this encounter
--- OUTSIDE RECORDS SUMMARY | 2022-04-17 16:51 | XMS_ITS | Encounter Summary ---
:1990 Author Organization [facility] Address [address], [place] [address] Care Team Providers Name Role Phone Unavailable Primary Care Provider Unavailable Reason for Visit Reason Comments BLEEDING, BREAKTHROUGH Encounter Details Date Type Department Care Team Description 03/06/2010 Office Visit [facility] Chaya Armando M etrorrhagia (Primary Obstetrics and MD Dx) Gynecology [address] [address] [place], [place] [address] [phone] Social History Tobacco Use Types Packs/Day Years [...] Chaya Armando - 03/06/2010 4:26 PM CDT RECEIVING DOCK CHECKER Office Note Chief Complaint: Intermenstrual bleeding on OCP's. SUBJECTIVE: 19 yr old P0 was seen by her manhole stripper in 05/2009. She was requesting contraception at [...]
--- OUTSIDE RECORDS SUMMARY | 2022-04-17 16:52 | XMS_ITS | Encounter Summary ---
:1990 Author Organization [facility] Address [address] [place] [address] Care Team Providers Name Role Phone No Ref-Primary, Physician Primary Care Provider [phone] Encounter Details Date Type Department Care Team Description 07/21/2019 Travel Social History Tobacco Use Types Packs/Day Years Used Date Never Smoker Sex Assigned at Date Recorded Not on file documented as of this encounter Plan of Treatment Not on filedocumented as of this encounter Visit Diagnoses Not on filedocumented in this encounter Care Teams Archives Technician Relationship Specialty Start Date End Date No Ref-Primary, Physician PCP - General 07/21/19 documented as of this encounter
--- OUTSIDE RECORDS SUMMARY | 2022-04-17 16:52 | XMS_ITS | Encounter Summary ---
:1991 Author Organization [facility] Address [address] [place] [address] Care Team Providers Name Role Phone Unavailable Primary Care Provider Unavailable Reason for Visit Reason Comments Dysphagia SORE THROAT,NURSE Encounter Details Date Type Department Care Team Description 06/16/1998 Telephone Careline Kristal Fuentes Dysphagia; SORE [address] L, ACCOUNTANT, NEON GLASS BENDER THROAT,NURSE [place], [place] [address] [phone] [place] [address] Social History Tobacco Use Types Packs/Day Years Used Date Smoking Tobacco: Never Assessed Sex Assigned at Date Recorded Not on file documented as of this encounter Nursing Notes 06/16/1998 11:59 PM TAXICAB COORDINATOR >> KRISTAL FUENTES 06/16/1998 10:14 am 10:14 AM okay to go to [facility] per Dr. Suarez, mom told >> CALL RECEIVED. Contact: [phone] mom mac >> KRISTAL FUENTES 06/16/1998 10:06 [...]
--- OUTSIDE RECORDS SUMMARY | 2022-04-17 16:52 | XMS_ITS | Encounter Summary ---
:1991 Author Organization [place] Address [facility] [place] [address] Care Team Providers Name Role Phone Lazarus Galeas MD Primary Care Provider + [phone] Reason for Visit Reason Comments Urgent Care Head Injury Patient reports got knocked on ice playing hockey yesterday, this am neck hurts worse than yesterday, head hurts the same. Denies loss of consciousness, denies numbne ss/tingling of extremities. Encounter Details Date Type Department Care Team Description 11/24/2009 Office Visit [facility] GeraldFox W, Head C ontusion (Primary Dx); Urgent Care Tana AKINS Neck Pain [address] [place] [address] Social History Tobacco Use Types Packs/Day [...] Cervicalgia documented in this encounter Care Teams Glue Machine Operator Relationship Specialty Start Date End Date Lazarus Galeas MD PCP - General 10/07/08 07/19/19 [address] [facility] [place] [address] documented as of this encounter
--- OUTSIDE RECORDS SUMMARY | 2022-04-17 16:52 | XMS_ITS | Encounter Summary ---
:1990 Author Organization [facility] Address [address] [place] [address] Care Team Providers Name Role Phone Unassigned, Provider Primary Care Provider Unavailable Encounter Details Date Type Department Care Team Description 03/12/2004 Correspondence None Unknown, Physici an IMMUNIZATIONS [address] [place], [place] [address] (Wo rk) Social History Tobacco Use Types Packs/Day Years Used Date Smoking Tobacco: Never Assessed Sex Assigned at Date Recorded Not on file documented as of this encounter Progress Notes Unknown, Physician - 03/12/2004 12:00 AM CDT documented in this encounter Plan of Treatment Not on filedocumented as of this encounter Visit Diagnoses Not on filedocumented in this encounter Care Teams Director Security Risk Management Relationship Specialty Start Date End Date Unassigned, Provider PCP - General 05/05/00 04/24/07 [address] [place] [address] documented as of this encounter
--- OUTSIDE RECORDS SUMMARY | 2022-04-17 16:52 | XMS_ITS | Encounter Summary ---
:1990 Author Organization [place] Address [address] [place] [address] Care Team Providers Name Role Phone Lazarus Galeas MD Primary Care Provider [phone] Encounter Details Date Type Department Care Team Description 07/19/2019 Travel Social History Tobacco Use Types Packs/Day Years Used Date Never Smoker Sex Assigned at Date Recorded Not on file documented as of this encounter Plan of Treatment Not on filedocumented as of this encounter Visit Diagnoses Not on filedocumented in this encounter Care Teams Executive Manager Relationship Specialty Start Date End Date Lazarus Galeas MD PCP - General 10/07/08 07/19/19 [address] [facility] [place] [address] documented as of this encounter
--- OUTSIDE RECORDS SUMMARY | 2022-04-17 16:52 | XMS_ITS | Clinical Summary ---
:1990 Author Organization [facility] Address [address] [place] [address] Care Team Providers Name Role Phone No Ref-Primary, Physician Primary Care Provider [phone] Allergies No known active allergies Medications [...] Comments Blood Pressure 162/92 07/19/2019 1:30 PM TOXICS PROGRAM OFFICER Pulse 97 07/19/2019 1:30 PM TOXICS PROGRAM OFFICER Temperature 36.4 ??C (97.5 ??F) 07/19/2019 8:22 AM TOXICS PROGRAM OFFICER Respiratory Rate 18 07/19/2019 12:30 PM TOXICS PROGRAM OFFICER Oxygen Saturation 99% 07/19/2019 1:30 PM TOXICS PROGRAM OFFICER Inhaled Oxygen Concentration - - Weight 87.2 kg (192 lb 3.2 oz) 07/19/2019 10:31 AM TOXICS PROGRAM OFFICER Height 158.8 cm (5' 2.5) 11/24/2009 11:04 [...] ss Type Group BCBS [place] [id number] 2018-[place]elo [phone] [address] [address] Indemnity t 0 [place] [address] Care Teams Knife Edger Relationship Specialty Start Date End Date No Ref-Primary, Physician PCP - General 07/21/19
--- OUTSIDE RECORDS SUMMARY | 2022-04-17 16:52 | XMS_ITS | Encounter Summary ---
:1991 Author Organization [facility] Address [address] [place] [address] Care Team Providers Name Role Phone Lazarus Galeas MD Primary Care Provider + [phone] Reason for Visit Reason Comments Fall Arm Injury Encounter Details Date Type Department Care Team Description 07/19/2019 [facility] Closed fracture of left elbow, initial e ncounter; [facility] Emergency Dep t EMERGENCY PHYSICIANS Closed dislocation of left e lbow, initial encounter; [address] PA Fall, initial encounter; [place], [place] [address] Rangel d displaced fracture of head of left radius, initial encounter; [id number] EPI 100 Displaced fracture of lateral condyle of left humerus, initial encounter for closed fracture [phone] [place], [place] [address] (Wo rk) Social History Tobacco Use Types Packs/Day Years Used Date Never Smoker Sex Assigned at Date Recorded Not on file documented as of this encounter Last Filed Vital Signs Vital Sign Reading Time Taken Comments Blood Pressure 162/92 07/19/2019 1:30 PM [facility] Pulse 97 07/19/2019 1:30 PM [facility] Temperature 36.4 ??C (97.5 ??F) 07/19/2019 8:22 AM [facility] Respiratory Rate 18 07/19/2019 12:30 PM [facility] Oxygen Saturation 99% 07/19/2019 1:30 PM [facility] Inhaled Oxygen Concentration - - Weight 87.2 kg (192 lb 3.2 oz) 07/19/2019 10:31 AM [facility] Height - - Body Mass Index 34.59 [...] local pharmacy or law enforcement facility. The [place] Pollution Control Agency has additional information on medication disposal: http s://www.roll hauler.[facility].fl.us/living-green/jsoykohi-cxwtcjwy-zkogqkjfkum. Many prescription pain medications contain Tylenol?? (acetaminophen), including Vicodin??, Tylenol #3??, Madison??, Lortab??, and Percocet??. You should not take [...] if there is anything that worries you. [facility] AttachmentsThe following attachments cannot be sent through Care Everywhere. Elbow Dislocation (Austrian)Elbow Fracture (Austrian)documented in this encounter Medications at Time of [...] Pt ambulated to restroom. Steady on feet. [facility] Ellen Regalado - 07/19/2019 10:50 AM CST [...] sling in triage for comfort. CMS intact. [facility] Rebel Brantley MD - 07/19/2019 8:07 AM [...] margin minimally displaced fracture, as per radiology. [facility] -Fracture Date/Time: 07/19/2019 10:14 AM Performed [...] the procedure a time out was called Alpine Protocol: the Joint Commission Alpine Protocol was followed Preparation: Patient was prepped [...] 0944: I consulted with HECTOR Bone from [facility] orthopedics, regarding the patient's history and presentation [...] as well. I discussed the case with [facility] orthopedic Jeana Emery PA-C on behalfof Dr. [...] and the provider's statements to me. 07/19/2019 [facility] EMERGENCY DEPARTMENT Rebel Brantley MD 07/19/195 [facility] documented in this encounter Plan of Treatment Not on filedocumented as of this encounter Procedures Procedure Name Priority Date/Time Associated Comments Diagnosis CT ELBOW LEFT W/O STAT 07/19/2019 1:32 PM Resu lts for this CONTRAST [facility] procedure are i n the results section. XR SURGERY JANIS STAT 07/19/2019 11:47 AM Resul ts for this FLUORO LESS THAN 5 [facility] procedure are in MIN W STILLS the results section. XR ELBOW LEFT 2 STAT 07/19/2019 9:34 AM Result s for this VIEWS [facility] procedure are i n the results section. ED ORTHOPEDIC INJURY Routine 07/19/2019 8:07 AM R esults for this TREATMENT - FRACTURE [facility] procedu re are in the results section. documented in this encounter Results CT Elbow Left w/o Contrast (07/19/2019 1:32 PM [facility]) Anatomical Region Laterality Modality Left Elbow, SUBRAD CT MSK, UMP CT MSK, RAD CT Computed Tomography Specimen (Source) Anatomical Location Collection Method / Collectio n Time Received Time / Laterality Volume Impressions 07/19/2019 2:54 PM [facility] IMPRESSION: Reduced left elbow dislocation with the following periarticular fractures: 1. Olecranon base nondisplaced fracture. 2. Coronoid process fracture. 3. Lateral epicondylar base fracture, mi nimally displaced, likely including the lateral collateral ligamen t attachment. Radiocapitellar alignment is grossly normal. 4. Radial head lateral margin minimally displaced fracture. BLAYNE SANCHEZ MD Narrative 07/19/2019 2:[address] [facility] [address] ELBOW LEFT WITHOUT CONTRAST July 19, [...] Min Fluoro w Stills (07/19/2019 11:47 AM [facility]) Anatomical Region Laterality Modality Abdomen/Pelvis Radio Fluoroscopy Specimen (Source) Anatomical Location Collection Method / Collectio n Time Received Time / Laterality Volume Impressions 07/19/2019 12:43 PM [facility] IMPRESSION: Intraoperative fluoroscopic spot image of the elbow demonstrating multiple fractures. Refer to operative report for additional details. MEGHANN OTOOLE MD Narrative 07/19/2019 12:43 PM [facility] SURGERY C-ARM FLUORO LESS THAN 5 MIN [...] XR, 2 views, left (07/19/2019 9:34 AM [facility]) Anatomical Region Laterality Modality Elbow, Left Elbow Left Computed Radiography Specimen (Source) Anatomical Location Collection Method / Collectio n Time Received Time / Laterality Volume Impressions 07/19/2019 12:04 PM [facility] IMPRESSION: There is a transverse fracture of [...] ZION JUAN MD Narrative 07/19/2019 12:04 PM [facility] LEFT ELBOW TWO VIEWS ??07/19/2019 9:34 AM [...] IMAGING ORDER [facility] -Fracture (07/19/2019 8:07 AM [facility]) Narrative Rebel Brantley MD - 07/19/2019 8:07 AM CS T Rebel Brantley MD ? 07/19/2019 ??9:36 PM [facility] -Fracture Date/Time: 07/19/2019 10:14 AM Performed [...] dure a time out was called ?? Alpine Protocol: the Joint Commission Alpine Protocol was followed ?? Preparation: Patient was [...] chloride BOLUS New Bag 07/19/2019 1:00 PM [facility] 1,000 mLs 1000 mL/hr Intravenous, 1,000 mL, ONCE, at 1,000 mL/hr, Administer over 1 Hours, On Wed07/19/19 at 1015, For 1 dose ibuprofen (ADVIL/MOTRIN) tablet 800 mg Given 07/19/2019 8:56 AM [facility] 800 mg 800 mg, Oral, ONCE, On [...] 2 MG/ML injection Given 07/19/2019 11:24 AM [facility] 4 mg Starting on Wed07/19/19 at 1119, For 1 dose, MS. NAKUL Aguilar : cabinet override Irritant. For ordered IV doses 0.1-4 mg, give IV Push undiluted over 2-5 minutes. oxyCODONE-acetaminophen (PERCOCET) 5-325 MG Given 07/02 1:40 PM [facility] 1 tablet per tablet 1 tablet 1 tablet, Oral, ONCE, On Wed07/19/19 at 1335, For 1 dose, Maximum acetaminophen dose from all sources= 75 mg/kg/day not to exceed 4 grams propofol (DIPRIVAN) 200 MG/20ML injectio n Given 07/19/2019 11:34 AM [facility] 90 mg Starting on Wed07/19/19 at 1051, For 1 dose, Yosiprabhu, MS. MOTA : cabinet override propofol (DIPRIVAN) injection 10 mg/mL v ial Given 07/19/2019 11:37 AM [facility] 30 mg 9 mg (rounded from 8.72 [...] Recently Administered Medications Times are shown in [facility]. Scheduled Medication Order 07/17/2019 07/18/2019 07/19/2019 0.9% [...] override documented in this encounter Care Teams Clearance Diver Relationship Specialty Start Date End Date Lazarus Galeas MD PCP - General 10/07/08 07/19/19 [address] [facility] [place] [address] documented as of this encounter
--- OUTSIDE RECORDS SUMMARY | 2022-04-17 16:52 | XMS_ITS | Encounter Summary ---
:1990 Author Organization Replaced by [facility] Address [address] [place] [address] Care Team Providers Name Role Phone Unassigned, Provider Primary Care Provider Unavailable Reason for Visit Reason Comments FEVER ABDOMINAL PAIN Encounter Details Date Type Department Care Team Description 09/17/2000 Telephone Careline Ayleen Barker, FEVER; ABDOMINAL PAIN [address] Leanne Pérez, RN [place], [place] [address] [address] [facility] [phone] [place] [address] Social History Tobacco Use Types Packs/Day Years Used Date Smoking Tobacco: Never Assessed Sex Assigned at Date Recorded Not on file documented as of this encounter Nursing Notes 09/17/2000 11:59 PM SALES ADMINISTRATION SPECIALIST >> LEANNE BARKER WedSep 17, 2000 5:23 PM >> COMPLETED ON WedSep 17, 2000 5:42 PM >> CALL RECEIVED. Contact: merna maya [phone] TRIAGE REFERENCE: FEVER - PEDS CNG (c) [...] frandy berrios - NO SUB DOC, as contract technical writer advised pt eval tonite, and mom wou ld like [facility] eval tonite 5:[address] berrios cb and VO = pt eval at [facility] tonite 5:41 PM cb to mom and informed of VO per dr. berrios. mom wants to bring pt to [facility]. note faxed to same. documented in this encounter Plan of Treatment Not on filedocumented as of this encounter Visit Diagnoses Not on filedocumented in this encounter Care Teams Bleach Boiler Packer Relationship Specialty Start Date End Date Unassigned, Provider PCP - General 05/05/00 04/24/[address] [place] [address] documented as of this encounter
[2022-04-20 16:37] LABS: Dating LMP CONF by US; Family Hx Neural Tube Defect No; Insulin Req Maternal Diabetes No; Maternal Age At Delivery 31.2 yr; Maternal Race Nonblack; Maternal Screen Interpretation Screen Neg; MoM for AFP 0.75; Number of Fetuses Singleton; Patient's AFP 22 ng/mL; Patient's DIA 83 pg/mL; Smoking No
== END 2022-04-17 16:45 | disposition home or self-care (01) ==
LOC: NFLDREF 16:45
PROVIDERS: PCP Physician Assistant Medical; Visit Provider Physician Assistant
DX: Z34.92 Encounter for supervision of normal pregnancy, unspecified, second trimester (principal)
CPT/HCPCS: 81511

== ENCOUNTER 2022-05-22 12:55 | Outpatient (CLI) | payer OTHER, SELFPAY ==
--- OUTSIDE RECORDS SUMMARY | 2022-05-22 12:58 | XMS_ITS | Encounter Summary ---
:1990 Author Organization [facility] Address [address] [place] [address] Care Team Providers Name Role Phone [facility], Clinician Primary Care Provider Unavailable Reason for Visit Reason Onset Date Comments Refill 08/12/2020 omeprazole (PRILOSEC ) 20 MG capsule Encounter Details Date Type Department Care Team Description 08/12/2020 Refill [facility] [address], Refill (omeprazole [facility] (PRILOSEC) [address] capsule) [place] [address] [place], [place] [id number] (Wo rk) Social History Tobacco Use Types Packs/Day Years Used Date Smoking Tobacco: Former Smokeless Tobacco: Never Alcohol Use Standard Drinks/Week Comments Yes 0.8 (1 standard drink = 0.6 oz pure alco hol) social, maybe once a month Sex Assigned at Date Recorded Not on [...] Level: 2.5 mg/dL on 05/03/2018 Powered by [employer], Reference: [id number], 08/12/2020 9:25:22 AM SHIPPING AND RECEIVING SUPERVISOR, Pool: Juan Arevalo Care Team ([id number]) PING AND RECEIVING SUPERVISOR Interface, Out [employer] Prov Query - 08/12/2020 9:25 AM CST The following lab order(s) may be associated with the Result Note below: MAGNESIUM Notes Recorded by Chrissie Acharya LPN on 05/03/2018 at 2:07 PM Results letter sent. Chrissie Acharya LPN 05/03/2018, 2:07 PM ------ Notes Recorded by Kaitlyn Muhammad APRN, SPRAY PAINTER on 05/03/2018 at 1:16 PM Juliette, Your electrolyte and magnesium levels are normal. Your vitamin D level is quite low which could be contributing to joint and muscle pain. Please take vitamin D and calcium supplements as we discussed during your visit. Please call for further questions or concerns. Kaitlyn Muhammad APRN, SPRAY PAINTER 05/03/2018, 1:16 PM PING AND RECEIVING SUPERVISOR documented in this encounter Plan of Treatment Not on filedocumented as of this encounter Visit Diagnoses Not on filedocumented in this encounter Care Teams Circuitry Negative Inspector Relationship Specialty Start Date End Date Nemesio Rush PCP - General 11/22/[address] [place] [address] documented as of this encounter
--- OUTSIDE RECORDS SUMMARY | 2022-05-22 12:58 | XMS_ITS | Encounter Summary ---
:1990 Author Organization [facility] Address [address], [place] [address] Care Team Providers Name Role Phone Unavailable Primary Care Provider Unavailable Reason for Visit Reason Comments Refill hydroxychloroquine (PLAQUENI L) 200 MG tablet [Pharmacy Med Name: HYDROXYCHLOROQUINE 200 MG TA B] Encounter Details Date Type Department Care Team Description 12/13/2017 Refill [facility] [address] (hydroxychloroquine [facility] MD Charles (PLAQUENIL) 200 MG tablet [address] [facility] [Pharmacy Med Name: [place] [address] HYDROXYCHLOROQUINE 200 MG [phone] TAB]) Social History Tobacco Use Types Packs/Day Years Used Date Smoking Tobacco: Former Smokeless Tobacco: Never Alcohol Use Standard Drinks/Week Comments Yes 0.8 (1 standard drink = 0.6 oz pure alco hol) soc Sex Assigned at Date Recorded Not on [...] two times a day. (unchanged) Powered by [employer], Reference: [id number], 12/13/2017 1:19:13 AM CDT, Pool: Arlen Perry Care Team ([id number]) documented in this encounter Plan of Treatment Not on filedocumented as of this encounter Visit Diagnoses Not on filedocumented in this encounter
--- OUTSIDE RECORDS SUMMARY | 2022-05-22 12:58 | XMS_ITS | Encounter Summary ---
:1991 Author Organization [facility] Address [address] [place] [address] Care Team Providers Name Role Phone Unavailable Primary Care Provider Unavailable Reason for Visit Reason Comments Oral Surgical Services lesion consult, incidental f inding Dental (Routine) - Closed Specialty Diagnoses / Procedures Referred By Contact Refer red To Contact Diagnoses S/P skin biopsy Madison Kirk DDS [address] [place] [address] Referral ID Status Reason Start Date Expiration Date Visits Requ ested Visits Authorized [id number] Closed 06/04/2017 09/03/2018 1 1 Encounter Details Date Type Department Care Team Description 07/29/2017 Office Visit [facility] Brent Amos, Oral Surgical Services [address] light DDS (lesion consult, [place] [address] incidental finding) [phone] [place], [place] [phone] Social History Tobacco Use Types Packs/Day Years Used Date Smoking Tobacco: Former Smokeless Tobacco: Never Alcohol Use Standard Drinks/Week Comments Yes 0.8 (1 standard drink = 0.6 oz pure alco hol) soc Sex Assigned at Date Recorded Not on file documented as of this encounter Last Filed Vital Signs Vital Sign Reading Time Taken Comments Blood Pressure 119/68 07/29/2017 3:05 PM SHEAR OPERATOR Pulse 75 07/29/2017 3:05 PM SHEAR OPERATOR Temperature - - Respiratory Rate - - Oxygen Saturation 100% 07/29/2017 3:05 PM SHEAR OPERATOR Inhaled Oxygen Concentration - - Weight - - Height - - Body Mass Index - - documented in this encounter Progress Notes Brent Amos, DDS - 07/29/2017 3:00 PM CST ORAL SURGERY [...] note was dictated with the aid of [employer] voice recognition software and may contain word substitution or spelling errors. Completed dental procedures in this visit There are no completed dental procedures in this visit. R OPERATOR documented in this encounter Plan of Treatment Not on filedocumented as of this encounter Visit Diagnoses Diagnosis Fibroma - Primary Other benign neoplasm of connective and other soft tissue of unspecified site documented in this encounter
--- OUTSIDE RECORDS SUMMARY | 2022-05-22 12:58 | XMS_ITS | Encounter Summary ---
:1990 Author Organization [facility] Address [address] [address] Care Team Providers Name Role Phone [facility], Clinician Primary Care Provider Unavailable Reason for Visit Reason Comments SKIN LESION Back changing mole Encounter Details Date Type Department Care Team Description 09/25/2021 Office Visit [facility] [address] ltiple benign melanocytic nevi of upper and lower extremities and trunk (Primary Dx); Dermatology Lentigines; [address] orrheic keratosis; [address] [address] [phone] (Wo rk) Social History Tobacco Use Types [...] Recommended skin cancer screening every 2-3 years. ER FIXER documented in this encounter Plan of Treatment Not on filedocumented as of this encounter Visit Diagnoses Diagnosis Multiple benign melanocytic nevi of uppe r and lower extremities and trunk - Primary Lentigines Other dyschromia Seborrheic keratosis Other seborrheic keratosis Guzman hemangioma Nevus, non-neoplastic documented in this encounter Care Teams Sustainability Project Manager Relationship Specialty Start Date End Date Victor Manuel, Nemesio PCP - General 11/22/[address] [place] [address] documented as of this encounter
--- OUTSIDE RECORDS SUMMARY | 2022-05-22 12:58 | XMS_ITS | Encounter Summary ---
:1990 Author Organization [facility] Address [address], [place] [address] Care Team Providers Name Role Phone Unavailable Primary Care Provider Unavailable Reason for Visit Reason Comments Refill fluticasone (FLONASE) 50 MCG /ACT nasal solution Encounter Details Date Type Department Care Team Description 09/28/2017 [place] Refill (fluticasone Practice [address] (FLONASE) 50 MCG/ACT [address] [place] [address] nasal solution ) Rogelio [place] [address] [phone] Social History Tobacco Use Types Packs/Day Years [...] remove pended medication. Thank you, Sandra Ortega WRITER Sandra Ortega - 09/29/2017 3:40 PM CST Medication Refill - Overdue Visit Called patient, was: Unable to reach patient 1st call attempted. Left message to call back. Sandra Ortega WRITER Indira Gomez RN - 09/29/2017 2:28 PM CST Further Assistance Needed on Refill from Mechanical Press Operator Patient is overdue for Office visit. A qualifying visit was not found within the last 2 years. Please call patient to schedule a Office Visit and document using .MIKAL. After attempting to schedule patient: Indira Gomez RN 09/29/2017, 2:28 PM Please route to: Clinician/Care Team Bayron WRITER Interface, Out Surescripts Prov Query - 09/28/2017 11:45 AM CST [...] into both nostrils daily. (unchanged) Powered by [employer], Reference: [id number], 09/28/2017 11:45:41 AM Bayron BRYANT: TAMEKA BATISTA RN ([id number]) WRITER documented in this encounter Plan of Treatment Not on filedocumented as of this encounter Visit Diagnoses Not on filedocumented in this encounter
--- OUTSIDE RECORDS SUMMARY | 2022-05-22 12:58 | XMS_ITS | Encounter Summary ---
:1990 Author Organization [facility] Address [address] [address] Care Team Providers Name Role Phone [facility], Clinician Primary Care Provider Unavailable Reason for Visit Reason Comments Refill Encounter Details Date Type Department Care Team Description 11/07/2019 Refill [place] [facility] Patience Quiros MD Refill [address] [facility] [address] [place] [address] [place] [address] [phone] (Wo rk) Social History Tobacco Use Types [...] medications documented in this encounter Care Teams Wood Tank Builder Relationship Specialty Start Date End Date Victor Manuel, Clinician PCP - General 11/22/[address] [place] [address] documented as of this encounter
--- OUTSIDE RECORDS SUMMARY | 2022-05-22 12:58 | XMS_ITS | Encounter Summary ---
:1990 Author Organization [facility] Address [address], [place] [address] Care Team Providers Name Role Phone Unavailable Primary Care Provider Unavailable Reason for Visit Reason Comments Revisit Encounter Details Date Type Department Care Team Description 05/03/2018 Office Visit [facility] Kaitlyn Muhammad oesophageal reflux disease, esophagitis presence not specified (Primary Dx); [address] [facility], CRACKER DOUGH MIXER, POWER BENDER OPERATOR Chronic gastritis without bleeding, unsp ecified gastritis type; Clinic [address] Current use of proton pump inhibitor [address] [place] [address] [phone] Social History Tobacco Use Types Packs/Day Years [...] concerns, please call [facility] at [phone]. documented in this encounter Progress Notes Kaitlyn [...] to prevent bone loss with group home PPI use. Today Juliette states she is [...] arthritis ??? Coronary Artery Disease Maternal Grandfather [place] in his 40s ??? Cancer, Breast Negative Family History ??? Cancer, Colon Negative Family History ??? Cancer, Ovary Negative Family History ??? Macular Degeneration Negative Family History ??? Retinal Detachment Negative Family History Social History Social History ??? Marital status: Significant Other/Partner Spouse name: N/A ??? Number of children: N/A ??? Years of education: N/A Occupational History ??? 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 Student Social History Main Topics ??? [...] magnesium, calcium, and vitamin D levels with group home PPI use. She was told to try calcium and vitamin D gummies to see if this bothered her stomach less than the traditional supplements. She was asked to follow up in 1 yearand call for further questions or concerns. Kaitlyn Muhammad APRN, POWER BENDER OPERATOR 05/03/2018, 9:14 AM documented in this encounter Nursing Notes Fara Bennett - 05/03/2018 8:00 AM CDT Sent to [facility] through new STEVE [id number] Fara Bennett - 05/03/2018 8:00 AM CDT Per call to HECTOR gabriel still in process, response expected by 10/22 Fara Bennett - 05/03/2018 8:00 AM CDT Prior Authorization for omeprazole 20 mg has been approved through [employer] insurance. Approval is granted for/until na with [...] d Time (Source) Location / / Volume [facility] 05/03/2018 8:40 AM 8 8:41 CDT AM CDT Narrative [facility] - 05/03/2018 12:42 PM CDT Performed at [facility], [address] [place] [address] ??[id number] Kaitlyn Muhammad APRN, CNP LAB_1 Performing Organization Address City/State/ZIP Code Phon e Number [facility] [phone] (ABNORMAL) Vitamin D 25-Hydroxy, Total (05/03/2018 8:40 [...] 05/03/2018 1:02 PM C DT Performed at [facility], [address] [place] [address] ??[id number] Kaitlyn R Hoisser CRACKER DOUGH MIXER, POWER BENDER OPERATOR LAB_1 Performing Organization Address [facility] Phon e Number [facility] [phone] Basic Metabolic Panel (05/03/2018 8:40 AM CDT) Analysis Performed At Path logist Time Signature Sodium 139 136 - [...] - 05/03/2018 12:42 PM CDT Performed at [facility], [address] [place] [address] ??[id number] Kaitlyn Muhammad APRN, MATILDA LAB_1 Performing Organization Address [facility] Phon e Number [facility] [phone] documented in this encounter Visit Diagnoses Diagnosis Gastroesophageal reflux disease, esophag itis presence not specified - Primary Chronic gastritis without bleeding, unsp ecified gastritis type Current use of proton pump inhibitor Gastroesophageal reflux disease, esophag itis presence not specified Chronic gastritis without bleeding, unsp ecified gastritis type documented in this encounter
--- OUTSIDE RECORDS SUMMARY | 2022-05-22 12:58 | XMS_ITS | Encounter Summary ---
:1990 Author Organization [facility] Address [address] [place] [address] Care Team Providers Name Role Phone [facility], Clinician Primary Care Provider Unavailable Reason for Visit Reason Comments SKIN LESION Left upper back mole has fal lamonte off, spot mid back possibly removed. Encounter Details Date Type Department Care Team Description 11/14/[address] [facility] [address] IN LESION (Left Dermatology MD Oma upper back mole has [address] fal lamonte off, spot [address] back possibly [place], [place] re moved. ) [phone] [phone] Social History Tobacco Use Types Packs/Day Years Used Date Smoking Tobacco: Former Smokeless Tobacco: Never Alcohol Use Standard Drinks/Week Comments Yes 0.8 (1 standard drink = 0.6 oz pure alco hol) social, maybe once a month Sex Assigned at Date Recorded Not on file documented as of this encounter Progress Notes Aan Elder MD - 11/14/2021 11:15 AM CDT [...] R esults for this SHAVING AM CDT procedure are i n the results section. SURGICAL PATHOLOGY, Routine 11/14/2021 11:11 Neoplasm of skin Results for this DERMATOLOGY AM CDT procedure are i n the [...] Component Value Ref Test Analysis Performed At [facility] gist Range Method Time Signature Case Report Surgical Pathology Report ? Case: [id number] ? 11/20/2021 [facility] 3800 Authorizing Provider: ??Ana Brush MD ? Collected: ? 11/14/2021 1111 ? 2:58 PM DERMATO LOGY Ordering Location: ? [facility] 3800 ? Received: ?11/14/2021 1348 ? CDT ? Dermatology ? Pathologist: ? Urmila Arita MD ? Specimen: ?Skin, Right U pper Back ? FINAL A. Skin, Right Upper Back, shave: 2021 [facility] 3800 Electronically DIAGNOSIS - Compound nevus, extending to the edges of the specimen. 2:58 PM DERMATOLOGY signed by CDT Urmila Arita MD on 11/20/2021 at 2:58 PM Clinical Clinical Impression: irritated nevus [facility] 3800 Information 2:58 PM DERMATOLOGY CDT Microscopic Microscopic 11/20/2021 [facility] 3800 Description examination is 2:58 PM DERMATOLOGY performed. CDT Special Stains A portion of the 11/20/2021 MAIL PROCESSING MACHINE OPERATOR 380 0 technical 2:58 PM DERMATOLOGY staining was CDT performed at [facility], [address] [place] [address]. The professional interpretation was performed at [facility]. Gross A: 11/20/2021 [facility] 3800 Description Received in formalin, labele d with the patient's name and Skin, Right Upper Back is a 8 x 5 x 2 mm shave biopsy of skin. The specimen is marked with camelia ink, bisected, and submitted entirely in one cassette. NW 2:58 PM DERMATOLOGY CDT Embedded 11/20/2021 [facility] 3800 Images 2:58 PM DERMATOLOGY CDT Specimen Anatomical Collection Method Collection Time Receive d Time (Source) Location / / Volume Laterality Skin (Skin) 11/14/2021 11:11 11/14/2021 1:48 AM CDT PM CDT Comment: Clinical Impression: irritated nevus Ana Elder MD LAB PATHOLOGY Performing Organization Address City/State/ZIP Code Phon e Number MAIL PROCESSING MACHINE OPERATOR 3800 DERMATOLOGY [address] [place], [place] [address] documented in this encounter Visit Diagnoses Diagnosis Neoplasm of skin (HRC) - Primary Neoplasm of unspecified nature of bone, soft tissue, and skin documented in this encounter Care Teams Mechanical Adjuster Relationship Specialty Start Date End Date Victor Manuel, Clinician PCP - General 11/22/18 [address] [place], [place] [address] documented as of this encounter
--- OUTSIDE RECORDS SUMMARY | 2022-05-22 12:58 | XMS_ITS | Encounter Summary ---
:1990 Author Organization [facility] Address [address] [address] Care Team Providers Name Role Phone [facility], Clinician Primary Care Provider Unavailable Reason for Visit Reason Comments Refill famotidine (PEPCID) 20 MG ta blet [Pharmacy Med Name: FAMOTIDINE 20MG TABLETS] Encounter Details Date Type Department Care Team Description 01/11/2020 Refill [facility] [address] C, Refill (famotidine [facility] VAT OVERHAULER, SERVICE OPERATIONS MANAGER (PEPCID) 20 MG tablet [address] [Pharmacy Med Name: [place] [address] [place], [place] FAMOTIDINE 20MG [phone] TABLETS]) [phone] (Wo rk) Social History Tobacco Use Types [...] Garces RN 01/11/2020, 10:52 AM Interface, Out Surescripts Prov Query - 01/11/2020 3:30 AM CDT [...] a day. (changed but equivalent) Powered by [employer], Reference: [id number], 01/11/2020 3:30:24 AM CDT, Pool: Oksana Chacko Care Team ([id number]) documented in this encounter Plan of Treatment Not on filedocumented as of this encounter Visit Diagnoses Not on filedocumented in this encounter Care Teams Sidewalk Repairer Relationship Specialty Start Date End Date Nemesio Rush PCP - General 11/22/[address] [place] [place] [address] documented as of this encounter
--- OUTSIDE RECORDS SUMMARY | 2022-05-22 12:58 | XMS_ITS | Encounter Summary ---
:1990 Author Organization [facility] Address [address] [address] Care Team Providers Name Role Phone [facility], Clinician Primary Care Provider Unavailable Reason for Visit Reason Comments Refill Encounter Details Date Type Department Care Team Description 02/10/2021 Refill [facility] Merlin Pearl MD Refill [address] [facility] [address] [place] [address] [place] [address] [phone] (Wo rk) Social History Tobacco Use Types [...] medications documented in this encounter Care Teams Induction Machine Setter Relationship Specialty Start Date End Date Nemesio Rush PCP - General 11/22/18 [address] [facility] [address] documented as of this encounter
--- OUTSIDE RECORDS SUMMARY | 2022-05-22 12:58 | XMS_ITS | Encounter Summary ---
:1990 Author [facility] Address [address] [place] [address] Care Team Providers Name Role Phone Needs Pcp, Assignment Primary Care Provider Reason for Visit Reason Comments Eye Exam Consult/Transfer Care (Routine) - Closed Specialty Diagnoses / Procedures Referred By Contact Refer red To Contact Diagnoses Undifferentiated connective tissue disease (HRC) High risk medication use Patience Jiang MD [address] [place] [address] Referral ID Status Reason Start Date Expiration Date Visits Requ ested Visits Authorized [id number] Closed 05/26/2018 08/25/2019 1 1 Encounter Details Date Type Department Care Team Description 06/15/2018 Office Visit Deep Bailey, Encounter for eye exam due to high risk medication (Primary Dx); Ophthalmology OD Long-term use of Plaquenil; [address] [address] [address]; [place] [address] [place], [place] Ptosis, congenital, bilatera l [phone] (Wo rk) Social History Tobacco Use Types [...] HVF 10-2 ?? OCT: ?? Macula Cube [id number] ?? HD 1 line 100x ?? HD 21 line ?? Spectacle prescription not necessary, not recommended, and not writtent to patient ?? Return for comprehensive eye and Hydroxychloroquine eye health assessment in 1 year or as needed GER BENEFIT documented in this encounter Plan of Treatment Not on filedocumented as of this encounter Visit Diagnoses Diagnosis Encounter for eye exam due to high risk medication - Primary Long-term use of Plaquenil Emmetropia Screening for other eye conditions Ptosis, congenital, bilateral Congenital ptosis of eyelid documented in this encounter Care Teams Pinked Edge Sewing Machine Operator Relationship Specialty Start Date End Date Needs Pcp, Assignment PCP - General 05/26/18 11/21/18 [place] [address] documented as of this encounter
--- OUTSIDE RECORDS SUMMARY | 2022-05-22 12:58 | XMS_ITS | Encounter Summary ---
:1990 Author Organization [facility] Address [address] [address] Care Team Providers Name Role Phone Unavailable Primary Care Provider Unavailable Reason for Visit Reason Comments Skin Check Encounter Details Date Type Department Care Team Description 07/09/2017 Office Visit [facility] Lexi Watkins Mult iple melanocytic nevi (Primary Dx); [address] [facility] MD Screening for malignant neoplasm of skin ; [address] [place] [address] [place], [place] [phone] Social History Tobacco Use Types Packs/Day Years [...] needed for any new or changing growths. AND MACHINE MAINTAINER documented in this encounter Progress Notes Lexi Watkins MD - 07/09/2017 12:45 PM CST Subjective: Juliette Gaimng is a 26 y.o. old female who [...] history of melanoma: No. 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 AND MACHINE MAINTAINER documented in this encounter Plan of Treatment Not on filedocumented as of this encounter Visit Diagnoses Diagnosis Multiple melanocytic nevi - Primary Screening for malignant neoplasm of skin Screening for malignant neoplasm of the skin Skin tag Unspecified hypertrophic and atrophic co ndition of skin documented in this encounter
--- OUTSIDE RECORDS SUMMARY | 2022-05-22 12:58 | XMS_ITS | Encounter Summary ---
:[address] [facility] Address [address] [place] [address] Care Team Providers Name Role Phone Victor Manuel Clinician Primary Care Provider Unavailable Encounter Details Date Type Department Care Team Description 09/28/2017 Refill Order [place] [facility] [place] Practice [address] [address] [place] [address] [place], [place] [address] [phone] Social History Tobacco Use Types Packs/Day Years [...] notified. Trenton West CMA 09/30/2017, 8:46 AM K SORTER documented in this encounter Plan of Treatment Not on filedocumented as of this encounter Visit Diagnoses Diagnosis Encounter for long-term (current) use of medications - Primary Encounter for long-term (current) use of other medications documented in this encounter Care Teams Environmental Advisor Relationship Specialty Start Date End Date Nemesio Rush PCP - General 11/22/18 [address] [place] [address] documented as of this encounter
--- OUTSIDE RECORDS SUMMARY | 2022-05-22 12:58 | XMS_ITS | Encounter Summary ---
:1990 Author Organization [facility] Address [address] [address] Care Team Providers Name Role Phone [facility], Clinician Primary Care Provider Unavailable Reason for Visit Reason Comments Refill Encounter Details Date Type Department Care Team Description 08/15/2019 Refill [facility] [place] [facility] Patience Quiros MD Refill [address] [facility] [address] [place] [address] [place] [address] [phone] (Wo rk) Social History Tobacco Use Types [...] 06-15-2018 No ophthalmoscopic evidence of ocular toxicity LY CHAIN PROJECT MANAGER Lee Ann Hodges LPN - 08/15/2019 12:16 PM CST Patient scheduled an appointment with Dr Dacosta 20-20 in . She will schedule eye exam at [facility] this week.. LY CHAIN PROJECT MANAGER Bethanie Trinh RN - 08/15/2019 11:50 AM CST LV 05-26-2018 FV None Last eye exam 06-15-2018 Last office visit - to follow up in 1 year Nurse left message for patient to return call. Patient needs a FV and an eye exam LY CHAIN PROJECT MANAGER documented in this encounter Plan of Treatment Not on filedocumented as of this encounter Visit Diagnoses Diagnosis Undifferentiated connective tissue disea se (HRC) Unspecified diffuse connective tissue di sease High risk medication use Encounter for long-term (current) use of other medications documented in this encounter Care Teams Sustainability Communicator Relationship Specialty Start Date End Date Victor Manuel Clinician PCP - General 11/22/18 [address] [place] [address] documented as of this encounter
--- OUTSIDE RECORDS SUMMARY | 2022-05-22 12:58 | XMS_ITS | Encounter Summary ---
:1990 Author Organization [facility] Address [address], [place] [address] Care Team Providers Name Role Phone [facility], Clinician Primary Care Provider Unavailable Reason for Visit Reason Comments Refill omeprazole (PRILOSEC) 20 MG capsule [Pharmacy Med Name: OMEPRAZOLE 20MG CAPSULES] Encounter Details Date Type Department Care Team Description 03/16/2020 Refill [facility] [address] Omari Muhammad , Refill (omeprazole [facility] PHARMACEUTICAL ANALYST, PRESSURIZATION MECHANIC (PRILOSEC) 20 MG capsule [address] [Pharmacy Med Name: [place] [address] [place], [place] OMEPRAZOLE 20MG [phone] CAPSULES]) [phone] (Wo rk) Social History Tobacco Use Types Packs/Day Years Used Date Smoking Tobacco: Former Smokeless Tobacco: Never Alcohol Use Standard Drinks/Week Comments Yes 0.8 (1 standard drink = 0.6 oz pure alco hol) social, maybe once a month Sex Assigned at Date Recorded Not on file documented as of this encounter Nursing Notes Rain Chacon RN - 03/21/2020 10:13 AM CDT [...] care for GERD. ?? Ginna Gandhi APRN. PRESSURIZATION MECHANIC Interface, Out Surescripts Prov Query - 03/16/2020 [...] Level: 2.5 mg/dL on 05/03/2018 Powered by [employer], Reference: [id number], 03/16/2020 3:28:36 AM CDT, Pool: Jb Sahni Care Team ([id number]) Interface, Out [email or web address] Prov Query - 03/16/2020 3:28 AM CDT The following lab order(s) may be associated with the Result Note below: MAGNESIUM Notes Recorded by Chrissie Acharya LPN on 05/03/2018 at 2:07 PM Results letter sent. Chrissie Acharya LPN 05/03/2018, 2:07 PM ------ Notes Recorded by Omari Muhammad APRN, PRESSURIZATION MECHANIC on 05/03/2018 at 1:16 PM Juliette, Your electrolyte and magnesium levels are normal. Your vitamin D level is quite low which could be contributing to joint and muscle pain. Please take vitamin D and calcium supplements as we discussed during your visit. Please call for further questions or concerns. Omari Muhammad APRN, PRESSURIZATION MECHANIC 05/03/2018, 1:16 PM documented in this encounter Plan of Treatment Not on filedocumented as of this encounter Visit Diagnoses Diagnosis Gastroesophageal reflux disease, esophag itis presence not specified documented in this encounter Care Teams Internal Review And Audit Compliance Relationship Specialty Start Date End Date Nemesio Rush PCP - General 11/22/[address] [place] [address] [place] [address] documented as of this encounter
--- OUTSIDE RECORDS SUMMARY | 2022-05-22 12:58 | XMS_ITS | Encounter Summary ---
:1990 Author Organization [facility] Address [address] [place] [address] Care Team Providers Name Role Phone Unavailable Primary Care Provider Unavailable Reason for Visit Reason Comments APPOINTMENT REQUEST Encounter Details Date Type Department Care Team Description 10/05/2017 Telephone [facility] [address] Marcia Medeiros APPOINTMENT REQUEST Rheumatology Clinic MD Letty [address] [facility]. [address] [place] [address] [place], [place] [phone] (Wo rk) Social History Tobacco Use Types Packs/Day Years Used Date Smoking Tobacco: Former Smokeless Tobacco: Never Alcohol Use Standard Drinks/Week Comments Yes 0.8 (1 standard drink = 0.6 oz pure alco hol) soc Sex Assigned at Date Recorded Not on file documented as of this encounter Nursing Notes Latoya Gamble CMA - 10/05/2017 11:43 AM CST Cancel error for TE. R INSPECTOR documented in this encounter Plan of Treatment Not on filedocumented as of this encounter Visit Diagnoses Not on filedocumented in this encounter
--- OUTSIDE RECORDS SUMMARY | 2022-05-22 12:58 | XMS_ITS | Encounter Summary ---
:1990 Author [facility] Address [address] [address] Care Team Providers Name Role Phone Needs Pcp, Assignment Primary Care Provider Reason for Referral Consult/Transfer Care (Routine) - Closed Specialty Diagnoses / Procedures Referred By Contact Refer red To Contact Diagnoses Undifferentiated connective tissue disease (HRC) High risk medication use Patience Jiang MD [address] [place] [address] Referral ID Status Reason Start Date Expiration Date Visits Requ ested Visits Authorized [id number] Closed 05/26/2018 08/25/2019 1 1 Scheduling Instructions Your provider has recommended an appoint ment with Amina [facility]. You may call [phone] to schedule your appoi ntment. If you do not schedule an appointment within the next 1 to 3 business days, we will call you. Reason for Visit Reason Comments CONSULT Encounter Details Date Type Department Care Team Description 05/26/2018 Initial Consult Patience Plummer Undiffer entiated connective tissue disease (HRC) (Primary Dx); Rheumatology MD Tanja Needs flu shot; [address] [place] [address] [facility] High [place] [address] [phone] Social History Tobacco Use Types Packs/Day Years [...] New Patient/Consult Note Referral: PATIENT SELF REFERRAL, [place] [address] Chief Complaint Patient presents with ??? CONSULT [...] for establishment of care following Dr. Winn's long term. She states that she has done well [...] health her symptoms otherwise. She lives in [place] with her boyfriend and dog. They are saving up for their own house. She is doing night school through [employer]. Her goal is to become a marriage and family counselor. 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 She enjoys walking her dog with her boyfriend and herfree time. She will consume alcohol on social occasions but otherwise does not consume alcohol. Denies any ongoing tobacco or drug use. Her brother has vitiligo and her father and paternal grandmother have osteoarthritis. Her mother lives in [place]. Her father lives locally. She has 1 [...] was given as she is available in [place] on Mondays,depending on my clinic availability. Return [...] Ordered: Consult-Adult/Peds connective tissue dise ase 05/26/2018 ([facility]) High risk medication use documented as of this encounter Visit Diagnoses Diagnosis Undifferentiated connective tissue disea se ([facility]) - Primary Unspecified diffuse connective tissue di sease Needs flu shot Need for prophylactic vaccination and in oculation against influenza High risk medication use Encounter for long-term (current) use of other medications documented in this encounter Care Teams Systems Project Manager Relationship Specialty Start Date End Date Needs Pcp, Assignment PCP - General 05/26/18 11/21/18 [place] [address] documented as of this encounter
--- OUTSIDE RECORDS SUMMARY | 2022-05-22 12:58 | XMS_ITS | Encounter Summary ---
:1990 Author Organization [facility] Address [address], [place] [address] Care Team Providers Name Role Phone [facility], Clinician Primary Care Provider Unavailable Reason for Visit Reason Comments Video Visit Follow-up Encounter Details Date Type Department Care Team Description 12/11/2019 Telemedicine Ovando Merlin Dacosta MD Undifferentiated connective tissue disea se ([facility]); Rheumatology [address] [place] [address] High risk medication use [address] [place] [address] [phone] Social History Tobacco Use Types Packs/Day Years [...] to systemic prednisone and was started on [id number] mg twice daily which later on was [...] or sooner if needed. Merlin Dacosta. Rheumatology [facility] documented in this encounter Plan of Treatment Not on filedocumented as of this encounter Visit Diagnoses Diagnosis Undifferentiated connective tissue disea se (HRC) Unspecified diffuse connective tissue di sease High risk medication use Encounter for long-term (current) use of other medications documented in this encounter Care Teams Strategic Communications Manager Relationship Specialty Start Date End Date Victor Manuel Clinician PCP - General 11/22/[address] [place] [address] documented as of this encounter
--- OUTSIDE RECORDS SUMMARY | 2022-05-22 12:58 | XMS_ITS | Encounter Summary ---
:1990 Author Organization [facility] Address [address] [place] [address] Care Team Providers Name Role Phone Unavailable Primary Care Provider Unavailable Encounter Details Date Type Department Care Team Description 05/03/2018 Lab Visit [facility] Specialty Gas troesophageal reflux disease, esophagitis presence not specified; Center [address] Labor[address] Chronic gastritis without bl eeding, unspecified gastritis type [address] [place] [address] Social History Tobacco Use Types [...] Chrissie Acharya LPN 05/03/2018, 2:07 PM Kaitlyn Muhammad APRN, RADIAL DRILL OPERATOR - 05/03/2018 1:16 PM CDT Juliette, Your electrolyte and magnesium levels are normal. Your vitamin D level is quite low which could be contributing to joint and muscle pain. Please take vitamin D and calcium supplements as we discussed during your visit. Please call for further questions or concerns. Kaitlyn Muhammad APRN, RADIAL DRILL OPERATOR 05/03/2018, 1:16 PM documented in this encounter [...] - 05/03/2018 12:42 PM CDT Performed at [address] ??[address] Kaitlyn Muhammad APRN, CNP LAB_1 Performing Organization Address City/State/ZIP Code Phon e Number [facility] [phone] (ABNORMAL) Vitamin D 25-Hydroxy, Total (05/03/2018 8:40 [...] 05/03/2018 1:02 PM C DT Performed at [address] ??[address] Kaitlyn Muhammad APRN, CNP LAB_1 Performing Organization Address [facility] Phon e Number [facility] [phone] Basic Metabolic Panel (05/03/2018 8:40 AM CDT) [...] 12:42 PM CDT Performed at [facility], [address] [place] [address] ??[id number] Kaitlyn Muhammad APRN, CNP LAB_1 Performing Organization Address City/[facility] Phon e Number [facility] [phone] documented in this encounter Visit Diagnoses Diagnosis Gastroesophageal reflux disease, esophag itis presence not specified Chronic gastritis without bleeding, unsp ecified gastritis type documented in this encounter
--- OUTSIDE RECORDS SUMMARY | 2022-05-22 12:58 | XMS_ITS | Encounter Summary ---
:1990 Author Organization [facility] Address [address] [place] [address] Care Team Providers Name Role Phone Nemesio Diehl Primary Care Provider Unavailable Reason for Visit Reason Comments Follow-up, NOS Encounter Details Date Type Department Care Team Description 12/21/2019 Telemedicine Specialty Center Ginna Gandhi, Savita roesophageal reflux [address] [facility] MATILDA PECK disease with esophagitis Clinic [address] (Primary Dx) [address] [place], [place] [address] Social History Tobacco Use Types Packs/Day [...] Juliette Gaming Date: 12/21/2019 Primary Care Provider: Nemesio Diehl CC: Follow up GERD, med refill SUBJECTIVE: [...] care for GERD. Ginna Gandhi APRN. MATILDA [facility] [phone] documented in this encounter Plan of Treatment Not on filedocumented as of this encounter Visit Diagnoses Diagnosis Gastroesophageal reflux disease with eso phagitis - Primary documented in this encounter Care Teams Sharepoint Web Developer Relationship Specialty Start Date End Date Victor Manuel Clinician PCP - General 11/22/[address] [address] documented as of this encounter
--- OUTSIDE RECORDS SUMMARY | 2022-05-22 12:58 | XMS_ITS | Clinical Summary ---
:1990 Author Organization [facility] Address [address] [place] [address] Care Team Providers Name Role Phone Victor [...] for each transition of care or referral. [facility] Allergies No known active allergies Medications Medication [...] Influenza IIV4 (Quadrivalent) 0.5mL 05/26/2018, 04/19/2017, 04/02/2015, ([id number]) 05/10/2014, 05/26/2013 Influenza Vaccine (3+years) ([facility] 04/22/2009 Clinic) Influenza, Unspecified Formulation 05/03/2011 MCV4 (Menactra) 05/05/2007 MMR 03/12/2004, 10/21/1992 OPV, Trivalent (Orimune or tOPV) 02/23/1997, 02/12/1993, 03/1992, 1991 Pfizer (Comirnaty) COVID-19, 12+ Yrs 09/10/2020, 08/20/2020 Purple Top Td 03/12/2004 Tdap 10/08/2011 Varicella 05/16/2009, 11/19/1995 Family History Medical History Relation Name Comments Anxiety Father Other Father Possible lactose intolerance Hyperlipidemia Mother Coronary Artery Disease Maternal Grandfather d [place] in his 40s Other Maternal Grandmother arthritis Alzheimer's Paternal Grandfather Asthma Paternal Grandfather Coronary Artery Disease Paternal Grandfather Glaucoma Paternal Grandmother Cancer, Breast Negative Family History Cancer, Colon Negative Family History Cancer, Ovary Negative Family History Macular Degeneration Negative Family History Retinal Detachment Negative Family History Relation Name Status Comments Father Alive Mother Alive Brother Alive Maternal Grandfather (Age 45) [place] Maternal Grandmother (Age ? age) pancre atic [...] CDT Oxygen Saturation 100% 07/29/2017 3:05 PM GENERAL COUNSELOR Inhaled Oxygen Concentration - - Weight 90.3 [...] Additional history exists COVID-19 Vaccine (3 - 11/05/2020 09/10/2020, 08/20/2020 Booster for Pfizer series) DTaP/Tdap/Td [...] Type Plan / Dates Group VICTOR MANUEL [facility] [id number] 2015-Pres C ommercial DENTAL PLAN [facility] ent DENTAL [place] [id number] 2020-Pres [address] ommercial 1 ent [address] [place] [address] Care Teams Psychological Aide Relationship Specialty Start Date End Date Victor Manuel Clinician PCP - General 11/22/[address] [place] [address] [place] [address]
--- OUTSIDE RECORDS SUMMARY | 2022-05-22 12:58 | XMS_ITS | Encounter Summary ---
:1990 Author Organization [facility] Address [address], [place] [address] Care Team Providers Name Role Phone [facility], Clinician Primary Care Provider Unavailable Reason for Visit Reason Comments Refill omeprazole (PRILOSEC) 20 MG capsule [Pharmacy Med Name: OMEPRAZOLE 20MG CAPSULES] Encounter Details Date Type Department Care Team Description 05/12/2019 [facility]ill [facility] 435 Omari Muhammad , Refill (omeprazole [facility] CISCO, SHAREMILKER (PRILOSEC) 20 MG capsule [address] [facility] [Pharmacy Med Name: [place] [address] [place], [place] OMEPRAZOLE 20MG [phone] CAPSULES]) [phone] (Wo rk) Social History Tobacco Use Types Packs/Day Years Used Date Smoking Tobacco: Former Smokeless Tobacco: Never Alcohol Use Standard Drinks/Week Comments Yes 0.8 (1 standard drink = 0.6 oz pure alco hol) soc Sex Assigned at Date Recorded Not on file documented as of this encounter Nursing Notes Gwen Bear CMA - 10/10/2019 4:13 PM CDT PA approved for omeprazole (PRILOSEC) 20 MG capsule. Pharmacy notified. Omari Muhammad APRN, SHAREMILKER - 05/12/2019 2:17 PM CDT Please call [...] Level: 2.5 mg/dL on 05/03/2018 Powered by Flayr, Reference: [id number], 05/12/2019 2:09:16 PM CDT, Pool: Jb Sahni Care Team ([id number]) RAME AND POWERPLANT TECHNICIAN Interface, Out Surescripts Prov Query - 05/12/2019 2:09 PM CDT The following lab order(s) may be associated with the Result Note below: MAGNESIUM Notes Recorded by Chrissie Acharya LPN on 05/03/2018 at 2:07 PM Results letter sent. Chrissie Acharya LPN 05/03/2018, 2:07 PM ------ Notes Recorded by Omari Muhammad APRN, SHAREMILKER on 05/03/2018 at 1:16 PM Juliette, Your electrolyte and magnesium levels are normal. Your vitamin D level is quite low which could be contributing to joint and muscle pain. Please take vitamin D and calcium supplements as we discussed during your visit. Please call for further questions or concerns. Omari Muhammad APRN, SHAREMILKER 05/03/2018, 1:16 PM RAME AND POWERPLANT TECHNICIAN documented in this encounter Plan of Treatment Not on filedocumented as of this encounter Visit Diagnoses Diagnosis Current use of proton pump inhibitor - P rimary Gastroesophageal reflux disease, esophag itis presence not specified documented in this encounter Care Teams Rn Clinical Trials Relationship Specialty Start Date End Date Victor Manuel, Clinician PCP - General 11/22/[address] [place] [address] documented as of this encounter
--- OUTSIDE RECORDS SUMMARY | 2022-05-22 12:58 | XMS_ITS | Encounter Summary ---
:1990 Author Organization [facility] Address [address], [place] [address] Care Team Providers Name Role Phone Victor Manuel, Clinician Primary Care Provider Unavailable Reason for Visit Reason Comments MONITORING HIGH-RISK MEDICATION Encounter Details Date Type Department Care Team Description 03/19/2020 Office Visit Raeksh Goldberg, Encounter for eye exam due to high risk medication (Primary Dx); Ophthalmology OD Ptosis, congenital, bilateral [address] [facility] [address] [place] [address] [address] [phone] [place] [address] (Wo rk) Social History Tobacco [...] eyelid documented in this encounter Care Teams Almond Paste Molder Relationship Specialty Start Date End Date Nemesio Rush PCP - General 11/22/[address] [place] [address] documented as of this encounter
--- OUTSIDE RECORDS SUMMARY | 2022-05-22 12:59 | XMS_ITS | Encounter Summary ---
:1990 Author Organization [facility] Address [address] [place] [address] Care Team Providers Name Role Phone Unavailable Primary Care Provider Unavailable Reason for Visit Reason Comments Refill fluticasone (FLONASE) 50 MCG /ACT nasal solution [Pharmacy Med Name: FLUTICASONE PROP 50 MCG SPRA Y] Encounter Details Date Type Department Care Team Description 03/19/2017 Refill [place] Marvin Escobar, Quiana ll (fluticasone Practice MANAGER BRAND, DNP (FLONASE) 50 MCG/ACT [address] nasal solution [place], [place] [address] [address] [place] [address] [Pharmacy Med Name: [phone] (Wo rk) FLUTICASONE PROP 50 MCG SPRAY]) [...] due to: [facility]26 Please route to: Care Team Bayron Lola Jefferson RN - 03/19/2017 10:05 AM CDT Patient is overdue for office visit. Please call and schedule patient. Lola Jefferson RN Interface, Out Sqwiggle Prov Query - 03/19/2017 9:12 AM CDT [...] into both nostrils daily. (unchanged) Powered by SocialSamba, Reference: [id number], 03/19/2017 9:12:50 AM CDT, Bayron: TAMEKA REFTEDDY RN ([id number]) documented in this encounter Plan of Treatment Not on filedocumented as of this encounter Visit Diagnoses Not on filedocumented in this encounter
--- OUTSIDE RECORDS SUMMARY | 2022-05-22 12:59 | XMS_ITS | Encounter Summary ---
:1990 Author Organization [facility] Address [address], [place] [address] Care Team Providers Name Role Phone Unavailable Primary Care Provider Unavailable Reason for Visit Reason Comments ROUTINE HEALTH MAINTENANCE Encounter Details Date Type Department Care Team Description 03/26/2017 Office Visit [facility] [place] Chaya Bautista P [facility] (Primary Dx); Obstetrics and MD Family planning, subdermal contraceptive checking/reinsertion/removal Gynecology [address] [place] [address] [phone] Social History Tobacco Use Types Packs/Day Years [...] documented in this encounter Patient Instructions Patient InstructionsRikiloveCaroline louisKELSIE - 03/26/2017 10:20 AM CDT Images from [...] can you learn more? 1. Go to JAZIO/Jingle Networks or Industry Weapon/Usentric. 2. Enter F276 in the search box. Current as of: October 15, 2016 Content Version: 11.3 ?? [phone] [employer]. Well Visit, Ages 18 to 50: Care [...] you are older than 45 and are -Nepalese or have a father or brother who got prostatecancer when he was younger than 65. When should you call for help? Watch closely for changes in your health, and be sure to contact your doctor if you have any problems or symptoms that concern you. Where can you learn more? 1. Go to JAZIO/[employer] or [employer]/Yoviarary. 2. Enter P072 in the search box. Current as of: February 18, 2016 Content Version: 11.3 ?? [phone] [employer]. After insertion of Nexplanon, you might [...] you wish. Please call your clinic at [facility] [address] [place] [address] Dept: [phone] Loc: [phone] if you notice signs of infection or [...] Component Value Ref Test Analysis Performed At [facility] Method Time Signature HPV RESULT Negative NEG [facility] Comments (NOTE) [facility] The Jennifer HPV Test is a qualitative in vitro test for the detection LABORATORIES of Human Papillomavirus in [facility] patient specimens. The t est utilizes amplification of target DNA by Polymerase Chain Snowflake ction (PCR) and nucleic acid hybridization for the detection of 14 high-risk (HR) HPV types. The assay tests for high risk type s 16, 18, 31, 33, 35, 39, 45, 51, 52, 56, 58, 59, 66 and 68. Testing performed at: This test was developed and its performance characteristics determined by [facility]. ??It has not been cleared or approved [...] PM 7 4:01 CDT PM CDT Narrative [facility] - 04/09/2017 8:20 AM C DT Performed at [facility] , [address] [place] [address] Chaya Bautista MD LAB_1 Performing Organization Address City/State/[facility] Code Phon e Number [facility] [phone] Pap Test, Routine (03/26/2017 3:58 PM CDT) Component Value Ref Test Analysis Performed At [facility] Method Time Signature Cytology, (NOTE) [facility] Pap Lime Kiln Tender Cytology Report LABORATORI ES Patient Name: JULIETTE [...] Signed Out By* ? MD Yvette Mckee CT (ASCP) ? Pap Smear History Date of Last Menstrual Period: 03/15/2017 ?? Microscopic Description Microscopic examination is performed. [facility] Department of Pathology [address] [place] [address] ??[id number] Specimen Anatomical Collection Method Collection Time Receive d Time (Source) Location / / Volume Laterality 03/26/2017 3:58 PM 7 CDT 12:00 PM CDT Chaya Bautista MD LAB_1 Performing Organization Address City/State/ZIP Code Phon e Number [facility] [phone] documented in this encounter Visit Diagnoses Diagnosis [...]
--- OUTSIDE RECORDS SUMMARY | 2022-05-22 12:59 | XMS_ITS | Encounter Summary ---
:1990 Author Organization [facility] Address [address] [place] [address] Care Team Providers Name Role Phone Unavailable Primary Care Provider Unavailable Reason for Referral Dental (Routine) - Closed Specialty Diagnoses / Procedures Referred By Contact Refer red To Contact Diagnoses S/P skin biopsy Madison Kirk DDS [address] [place] [address] Referral ID Status Reason Start Date Expiration Date Visits Requ ested Visits Authorized [id number] Closed 06/04/2017 09/03/2018 1 1 Scheduling Instructions Your provider has recommended an appoint ment with an oral surgeon within [facility]. You may c all one of the clinics below to schedule an appointment. If you prefer, a surgery scheduler will contact you within the next 3 business days to assist you in setting up this ap pointment. [place] - [phone] [facility] [phone] [place] [phone] Reason for Visit Reason Comments Dental Hygiene hot and cold sensitivity lr premolar area Encounter Details Date Type Department Care Team Description 06/04/2017 Office Visit [facility] Myranda Guido ental Hygiene (hot Dentistry I, RDH and cold sensitivity [address] [facility] lr premolar area) [place] [address] [phone] Social History Tobacco Use Types Packs/Day Years [...] encounter Patient Instructions Patient InstructionsMyranda Frankel I, [facility] - 06/04/2017 7:40 AM CDT Your [...] Daily rinsing of fluoride product purchased at [facility] pharmacy orother retail store Rinse with fluoride [...] Routine 1 Occurre nces EVALUATION starting 2019 [id number] Dental Procedures Routine 1 Oc currences starting [...] EXISTING SEALANT E1 Routine 08/23/2007 12:00 AM BEADING MACHINE OPERATOR 31 EXISTING SEALANT E1 Routine 08/23/2007 12:00 AM BEADING MACHINE OPERATOR 30 EXISTING SEALANT E1 Routine 08/23/2007 12:00 AM BEADING MACHINE OPERATOR 2 EXISTING SEALANT E1 Routine 08/23/2007 12:00 AM BEADING MACHINE OPERATOR 18 EXISTING SEALANT E1 Routine 08/23/2007 12:00 AM BEADING MACHINE OPERATOR 14 EXISTING SEALANT E1 Routine 08/23/2007 12:00 AM BEADING MACHINE OPERATOR 3 EXISTING SEALANT E1 Routine 08/23/2007 12:00 AM BEADING MACHINE OPERATOR 19 O EXISTING COMPOSITE Routine 08/23/2007 12:00 AM FILLING BEADING MACHINE OPERATOR documented in this encounter Visit Diagnoses Diagnosis [...]
--- OUTSIDE RECORDS SUMMARY | 2022-05-22 12:59 | XMS_ITS | Encounter Summary ---
:1990 Author Organization [facility] Address [address], [place] [address] Care Team Providers Name Role Phone Unavailable Primary Care Provider Unavailable Reason for Visit Reason Comments Revisit Encounter Details Date Type Department Care Team Description 04/28/2017 Office Visit [facility] Kaitlyn Muhammad oesophageal reflux disease, esophagitis presence not specified (Primary Dx); [address] [facility] R, L TACKER, TARP REPAIRER Current use of proton pump inhibitor Clinic [address] [place] [phone] Social History Tobacco Use Types Packs/Day Years [...] vitamin D to prevent bone loss with care home omeprazole use. Please follow up in 6 months and call for further questions or concerns. Your follow up appointment with Kaitlyn Mason NP is scheduled for WednesdayOctober 26 at 8:40 am. If your appointment needs to be cancel or reschedule please call [phone]. Kaitlyn Mason APRN, CNP 04/28/2017, 8:56 AM If you have any questions or concerns, please call [facility] at [phone]. documented in this encounter Progress Notes Kaitlyn [...] arthritis ??? Coronary Artery Disease Maternal Grandfather [place] in his 40s ??? Cancer, Breast Negative [...] were drawn to assess for deficiencies with records management specialist PPI use. She was asked to follow up in 6 months and to call for further questions or concerns. Kaitlyn Mason APRN, CNP 04/28/2017, 9:21 AM documented in this encounter [...] PM C DT Performed at [facility], [address] [place] [id number] Kaitlyn Muhammad APRN, CNP LAB_1 Performing Organization Address City/State/ZIP Code Phon e Number [facility] [phone] Magnesium (04/28/2017 9:13 AM CDT) athologist Signature Magnesium 2.3 1.6 - 2.6 [facility] mg/dl Specimen Anatomical Collection Method Collection Time Receive d Time (Source) Location / / Volume Laterality 04/28/2017 9:13 AM 7 9:21 CDT AM CDT Narrative [facility] - 04/28/2017 12:58 PM CDT Performed at [facility], [address] [place] [id number] Kaitlyn Muhammad APRN, MATILDA LAB_1 Performing Organization Address [facility]/ZIP Code Phon e Number [facility] [phone] documented in this encounter Visit Diagnoses Diagnosis Gastroesophageal reflux disease, esophag itis presence not specified - Primary Current use of proton pump inhibitor Gastroesophageal reflux disease, esophag itis presence not specified documented in this encounter
--- OUTSIDE RECORDS SUMMARY | 2022-05-22 12:59 | XMS_ITS | Encounter Summary ---
:1990 Author Organization [facility] Address [address] [place] [address] Care Team Providers Name Role Phone Unavailable [...] Optometry [place] Mckinley M D Aw [facility] [place] [address] [place] [address] Phone: Fax: Referral ID Status Reason Start Date Expiration Date Visits Requ ested Visits Authorized [id number] Closed 01/31/2015 05/01/2016 1 1 Encounter Details Date Type Department Care Team Description 03/29/2015 Office Visit [facility] Tony Travis, Unspec ified inflammatory polyarthropathy (Primary Dx); [address] Optometry Clinic OD Encounter for long-term (current) use of other medications [address] [place] [address] [place], [place] [phone] Social History Tobacco Use Types Packs/Day Years [...]
--- OUTSIDE RECORDS SUMMARY | 2022-05-22 12:59 | XMS_ITS | Encounter Summary ---
:1990 Author Organization [facility] Address [address], [place] [address] Care Team Providers Name Role Phone Unavailable Primary Care Provider Unavailable Reason for Visit Reason Comments Refill Encounter Details Date Type Department Care Team Description 09/03/2015 Refill [facility] 401 Juan Ramon Cole MD Refill Rheumatology Clinic [address] [place] [address] [place] [address] [phone] Social History Tobacco Use Types Packs/Day Years [...] two times a day. (unchanged) Powered by Yooneed.[email or web address], Reference: [id number], 09/03/2015 1:06:26 PM PRESIDENT SALES AND MARKETING, Pool: Kelsey Sandoval Care Team ([id number]) IDENT SALES AND MARKETING documented in this encounter Plan of Treatment Not on filedocumented as of this encounter Visit Diagnoses Not on filedocumented in this encounter
--- OUTSIDE RECORDS SUMMARY | 2022-05-22 12:59 | XMS_ITS | Encounter Summary ---
:1990 Author Organization [facility] Address [address] [address] Care Team Providers Name Role Phone Unavailable Primary Care Provider Unavailable Reason for Visit Reason Comments Refill Encounter Details Date Type Department Care Team Description 11/09/2016 Refill [facility] [address] Zoey Oma Bower, Refill [facility] SUPPLY ASSISTANT, STATE PILOT [address] [place] [address] [place] [address] [phone] (Wo rk) Social History Tobacco Use Types Packs/Day Years Used Date Smoking Tobacco: Former Smokeless Tobacco: Never Comments: only smoked occ Alcohol Use Standard Drinks/Week Comments Yes 0.8 (1 standard drink = 0.6 oz pure alco hol) soc Sex Assigned at Date Recorded Not on file documented as of this encounter Nursing Notes Junie Acuna RN - 11/09/2016 2:33 PM CDT Medication was refilled on 11/02/16. Called [facility] pharmacy,spoke to a pharmacy staff member who affirmed that it was indeed refilled on 11/02/16 and to disregard the request. Junie Acuna RN 11/09/2016, 2:33 PM documented in this encounter Plan of Treatment Not on filedocumented as of this encounter Visit Diagnoses Not on filedocumented in this encounter
--- OUTSIDE RECORDS SUMMARY | 2022-05-22 12:59 | XMS_ITS | Encounter Summary ---
:1990 Author Organization [facility] Address [address], [place] [address] Care Team Providers Name Role Phone Unavailable Primary Care Provider Unavailable Reason for Visit Reason Comments Refill raNITIdine (ZANTAC) 150 MG t ablet [Pharmacy Med Name: RANITIDINE 150 MG TABLET] Encounter Details Date Type Department Care Team Description 09/30/2016 Refill [facility] [address] Elaine Shultz MD Refill (raNITIdine [facility] [address] (ZANTAC) 150 MG tablet [address] [place] [address] [Pharmacy Med Name: [place] [address] RANITIDINE 150 MG [phone] TABLET]) Social History Tobacco Use Types Packs/Day [...] CST per standing order Edith Ivan RN ER TYPE BAR AND SEGMENT Interface, Out Surescripts Prov Query - 09/30/2016 1:40 AM CST raNITIdine [...] at bedtime if needed (unchanged) Powered by CharityStars, Reference: [id number], 09/30/2016 1:40:51 AM Bayron BRYANT: TAMEKA REFTEDDY CHIANG ([id number]) TTE documented in this encounter Plan of Treatment Not on filedocumented as of this encounter Visit Diagnoses Not on filedocumented in this encounter
--- OUTSIDE RECORDS SUMMARY | 2022-05-22 12:59 | XMS_ITS | Encounter Summary ---
:1990 Author Organization [email or web address] Address [address] [place] [address] Care Team Providers Name Role Phone Nemesio Rush Primary Care Provider Unavailable Encounter Details Date Type Department Care Team Description 07/02/2016 Refill Order Specialty Center 435 Elaine Shultz MD [facility] [address] [place] [address] [place] [address] [phone] Social History Tobacco Use Types Packs/Day Years [...] pt. [place]on West CMA 07/02/2016, 8:40 AM BAG CUTTING MACHINE OPERATOR documented in this encounter Plan of Treatment Not on filedocumented as of this encounter Visit Diagnoses Diagnosis Encounter for long-term (current) use of medications - Primary Encounter for long-term (current) use of other medications documented in this encounter Care Teams Database Administration Project Manager Relationship Specialty Start Date End Date Nemesio Rush PCP - General 11/22/18 [address] [place] [address] documented as of this encounter
--- OUTSIDE RECORDS SUMMARY | 2022-05-22 12:59 | XMS_ITS | Encounter Summary ---
:1990 Author Organization [facility] Address [address], [place] [address] Care Team Providers Name Role Phone Unavailable [...] Plaquenil [address] [place] [address] [place], [place] [phone] Social History Tobacco Use Types Packs/Day Years [...] 10 -2 and eye exam. Tony Travis, OD documented in this encounter Plan of Treatment Not on filedocumented as of this encounter Visit Diagnoses Diagnosis Inflammatory polyarthropathy (HRC) - Felicia webb Unspecified inflammatory polyarthropathy Long-term use of Plaquenil documented in this encounter
--- OUTSIDE RECORDS SUMMARY | 2022-05-22 12:59 | XMS_ITS | Encounter Summary ---
:1990 Author Organization [facility] Address [address], [place] [address] Care Team Providers Name Role Phone Unavailable Primary Care Provider Unavailable Reason for Visit Consult/Transfer Care (Routine) - Closed Specialty Diagnoses / Procedures Referred By Contact Refer red To Contact Optometry Orlando Mckinley M D Aw Optometry [place] [address] [place] [address] Phone: Fax: Referral ID Status Reason Start Date Expiration Date Visits Requ ested Visits Authorized [id number] Closed 01/31/2015 05/01/2016 1 1 Encounter Details Date Type Department Care Team Description 03/29/2015 Office Visit Specialty Center 401 Enco unter for long-term Ophthalmology Clinic (current) use of other [address] medications (Primary Dx) [place], [place] [id number] Social History Tobacco Use Types Packs/Day Years [...] Travis for DX plaquenil therapy performed by Bria Prince, COT Patient currently taking the following drops: none No need to call with results - patient seeing provider today. CHERISE Lomeli documented in this encounter Plan of Treatment Scheduled Referrals Name Type Priority Associated Diagnoses Order S donna OPTHALMOLOGY Referral Routine Ordered: 2014 documented as of this encounter Visit Diagnoses Diagnosis Encounter for long-term (current) use of other medications - Primary documented in this encounter
--- OUTSIDE RECORDS SUMMARY | 2022-05-22 12:59 | XMS_ITS | Encounter Summary ---
:1990 Author Organization [facility] Address [address] [address] Care Team Providers Name Role Phone Unavailable Primary Care Provider Unavailable Reason for Visit Reason Comments Revisit SHOT,FLU Encounter Details Date Type Department Care Team Description 04/19/2017 Office Visit Specialty Center Orlando Mckinley ferentiated connective tissue disease (HRC) (Primary Dx); 401 Rheumatology MD Charles Encounter for immunization Clinic [address] [place], [place] [id number] Social History Tobacco Use Types Packs/Day Years [...] (ABNORMAL) C-Reactive Protein (04/19/2017 8:54 AM CDT) [facility] Method Time Signature C-Reactive 1.2 (H) 0.0 - 0.7 [facility] Protein mg/dL LAB[facility]ATORIES Comment: Note: results are expressed in mg/dL. Specimen Anatomical Collection Method Collection Time Receive d Time (Source) Location / / Volume Laterality 04/19/2017 8:54 AM 7 8:57 CDT AM CDT Narrative [facility] - 04/19/2017 12:48 PM CDT Performed at [address] ??[address] Orlando Mckinley MD LAB_1 Performing Organization Address [facility] Phon e Number [facility] [phone] (ABNORMAL) ESR (04/19/2017 8:54 AM CDT) athologist Signature ESR 42 (H) 0 - 20 [facility] mm/hr Specimen Anatomical Collection Method Collection Time Receive d Time (Source) Location / / Volume Laterality 04/19/2017 8:54 AM 7 8:57 CDT AM CDT Narrative [facility] - 04/19/2017 3:14 PM C DT Performed at [address] ??[address] Orlando Mckinley MD LAB_1 Performing Organization Address City/[facility] Phon e Number [facility] [phone] (ABNORMAL) UA Micro If (04/19/2017 8:54 AM CDT) [facility] Method Time Signature Urine Color Yellow [...] Orlando Mckinley MD LAB_1 Performing Organization Address [facility]/ZIP Code Phon e Number [facility] [phone] Creatinine / GFR (04/19/2017 8:54 AM CDT) [...] 12:48 PM CDT Performed at [facility], [address] [place] [id number] Orlando Mckinley MD LAB_1 Performing Organization Address [facility] Phon e Number [facility] [phone] Complete Blood Count-No Diff (04/19/2017 8:54 AM [...] PM C DT Performed at [facility], [address] ??[address] Orlando Mckinley MD LAB_1 Performing Organization Address City/State/ZIP Code Phon e Number [facility] [phone] documented in this encounter Visit Diagnoses Diagnosis Undifferentiated connective tissue disea se (HRC) - Primary Unspecified diffuse connective tissue di sease Encounter for immunization Need for other specified prophylactic va ccination against single bacterial disease Undifferentiated connective tissue disea se (HRC) Unspecified diffuse connective tissue di sease documented in this encounter
--- OUTSIDE RECORDS SUMMARY | 2022-05-22 12:59 | XMS_ITS | Encounter Summary ---
:1990 Author Organization [facility] Address [address] [place] [address] Care Team Providers Name Role Phone Unavailable Primary Care Provider Unavailable Reason for Visit Reason Onset Date Comments Refill 01/28/2017 OMEPRAZOLE Encounter Details Date Type Department Care Team Description 01/28/2017 Refill Specialty Center 435 Dex Bhat (OMEPRAZOLE) [facility] Lorrie Soto, POWERSAW SUPERVISOR, FERMENTOLOGIST [address] [place] [address] [place] [address] [phone] (Wo rk) Social History Tobacco Use Types [...] for Omeprazole 20mg has been approved through [employer] insurance. Approval is granted for/until February 11, 2018 [...]
--- OUTSIDE RECORDS SUMMARY | 2022-05-22 12:59 | XMS_ITS | Encounter Summary ---
:1990 Author Organization [facility] Address [address] [place] [address] Care Team Providers Name Role Phone Victor [...] on filedocumented in this encounter Care Teams Glass Fitter Relationship Specialty Start Date End Date Nemesio Rush PCP - General 11/22/[address] [place] [address] documented as of this encounter
--- OUTSIDE RECORDS SUMMARY | 2022-05-22 12:59 | XMS_ITS | Encounter Summary ---
:1990 Author Organization [facility] Address [address] [address] Care Team Providers Name Role Phone Unavailable Primary Care Provider Unavailable Reason for Visit Reason Comments Refill hydroxychloroquine (AKA PLAQ UENIL) 200 MG tablet [Pharmacy Med Name: HYDROXYCHLOROQUINE 200 MG TA B] Encounter Details Date Type Department Care Team Description 02/27/2016 [facility]ill [facility] 401 Reymundo Nelson Re srinath (hydroxychloroquine Rheumatology Clinic MD Letty (AKA PLAQUENIL) [address] tablet [Pharmacy Med Name: [place] [address] [place], [place] HYDROXYCHLOROQUINE 200 MG [phone] TAB]) Social History Tobacco Use Types Packs/Day [...] a day. (changed but equivalent) Powered by [employer], Reference: [id number], 02/27/2016 1:15:49 AM CDT, Pool: Leslie Reymundovladimir Montiel ([id number]) documented in this encounter Plan of Treatment Not on filedocumented as of this encounter Visit Diagnoses Not on filedocumented in this encounter
--- OUTSIDE RECORDS SUMMARY | 2022-05-22 12:59 | XMS_ITS | Encounter Summary ---
:1990 Author Organization [facility] Address [address] [address] Care Team Providers Name Role Phone Unavailable Primary Care Provider Unavailable Reason for Visit Reason Comments Dental Conversion Legacy EDR to [place] convers ion Encounter Details Date Type Department Care Team Description 01/07/[address] [facility] Pedro Oconnor, Dentistry DDS [address] [place] [address] [place], [place] [address] Social History Tobacco Use Types [...]
--- OUTSIDE RECORDS SUMMARY | 2022-05-22 12:59 | XMS_ITS | Encounter Summary ---
:1990 Author Organization [facility] Address [address], [place] [address] Care Team Providers Name Role Phone Unavailable Primary Care Provider Unavailable Reason for Referral Procedure/Equipment (Routine) - Closed Specialty Diagnoses / Procedures Referred By Contact Refer red To Contact Diagnoses Gastroesophageal reflux disease, esophagitis presence not specified Lorrie Bhat APRN, BEAN DUMPER [address] [place] [address] Referral ID Status Reason Start Date Expiration Date Visits Requ ested Visits Authorized [id number] Closed 08/06/2016 11/05/2017 1 1 Scheduling Instructions Your provider [facility] You may call [phone] to schedule yo ur appointment. If you prefer, a saloon keeper will contact you within the next 3 in days to assist you in setting up this appointment. We suggest you call your [employer] insurance company about your coverage and benefits for this appointment. [place] OFFICE MANAGER Reason for Visit Reason Comments Revisit Encounter Details Date Type Department Care Team Description 08/06/2016 [facility] Visit [facility] Mian Bhat oesophageal reflux 435 Digestive Care Lorrie Soto APRN, diseas e, esophagitis Clinic BEAN DUMPER presence not specified [address] (Primary Dx) [place] [address] [place], [place] [phone] Social History Tobacco Use Types Packs/Day Years [...] Comments Blood Pressure 105/67 08/06/2016 8:37 AM RETAIL OFFICE MANAGER Pulse 78 08/06/2016 8:37 AM RETAIL OFFICE MANAGER Temperature 36.7 ??C (98 ??F) 08/06/2016 8:37 AM RETAIL OFFICE MANAGER Respiratory Rate - - Oxygen Saturation - - Inhaled Oxygen Concentration - - Weight 83 kg (183 lb) 08/06/2016 8:37 AM RETAIL OFFICE MANAGER Height 154.9 cm (5' 1) 08/06/2016 8:37 AM RETAIL OFFICE MANAGER Body Mass Index 34.58 08/06/2016 8:37 AM RETAIL OFFICE MANAGER documented in this encounter Patient Instructions Patient InstructionsLorrie Bhat APRN, CNP - 08/06/2016 9:03 AM RETAIL OFFICE MANAGER Stop Zantac Start Omeprazole---a prescription was sent to your pharmacy Stool test--start Omeprazole after you collect stool specimen Upper endoscopy if H pylori negative and symptoms persist Your follow up appointment with Dr. Stone Palacio is scheduled for November 06 at 11:00 am. Nothing to eat or drink after midnight. Must have a taxi cab driver to drive you home. Follow up Your follow up appointment with Lorrie Ferrari NP is scheduled for November 13 at 8:20 am. If you have any questions or concerns, please call [facility] at [phone]. Lorrie Ferrari APRN, [place]IL[place] OFFICE MANAGER documented in this encounter Progress Notes Lorrie Bhat APRN, CNP - 08/06/2016 9:06 AM CST GASTROENTEROLOGY FOLLOWUP NOTE DATE OF SERVICE: 08/06/2016 Juliette Gaming is a 26 y.o. old female who is here for a follow-up appointment. HISTORY OF PRESENTING ILLNESS: I have seen her previously in 2014 regarding abdominal pain and diarrhea. She had [...] single. 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 Pylori Antigen Feces (08/10/2016 8:26 AM RETAIL OFFICE MANAGER) Component Value Ref Test Analysis Performed At [facility] Range Method Time Signature H Pylori [facility] Result [facility]ATOR[facility] H Pylori (NOTE) [facility] Result [facility] PYLORI AG, EIA, STOOL ?? LABORATORIES ?? MICRO NUMBER: ?[id number] TEST STATUS: ? FINAL SPECIMEN SOURCE: ?? STOOL SPECIMEN QUALITY: ??ADEQUATE RESULT: ?Not Detected ?Antimicrobials, proton pump in hibitors, and ?bismuth preparations inhibit H . pylori and ?ingestion up to two week s prior to testing may ?cause false negative results. If clinically ?indicated the test shoul d be repeated on a new ?specimen obtained two weeks after discontinuing ?treatment. Test performed at [facility] [address] ??[id number] Director: MELVA SOTO MD Specimen Anatomical Collection Method Collection Time Receive d Time (Source) Location / / Volume Laterality Stool specimen 08/10/2016 8:26 AM 017 8:30 (specimen) RETAIL OFFICE MANAGER AM RETAIL OFFICE MANAGER Lorrie Bower APRN, BEAN DUMPER LAB_1 Performing Organization Address City/State/ZIP Code Phon e Number [facility] [phone] documented in this encounter Visit Diagnoses Diagnosis Gastroesophageal reflux disease, esophag itis presence not specified - Primary documented in this encounter
--- OUTSIDE RECORDS SUMMARY | 2022-05-22 12:59 | XMS_ITS | Encounter Summary ---
:1990 Author Organization [facility] Address [address], [place] [address] Care Team Providers Name Role Phone Unavailable Primary Care Provider Unavailable Reason for Visit Reason Comments Revisit Encounter Details Date Type Department Care Team Description 11/13/2016 [facility] Visit [facility] Mian Bhat oesophageal reflux 435 [facility] Care Lorrie Soto APRN, diseas e with esophagitis Clinic MATERIAL CREW SUPERVISOR (Primary Dx) [address] [place] [address] [place], [place] [phone] Social History Tobacco Use Types Packs/Day Years [...] couple weeks Call with questions or concerns [phone] option #3. Lorrie Ferrari APRN, CNP documented [...] k/ul PMN/Band 69 % Lymph 24 % [place] 6 % Eos 1 % Baso 0 % PMN Absolute 5.9 1.8 - 7.7 k/ul Lymph Absolute 2.1 1.0 - 4.8 k/ul [place] Absolute 0.5 0.1 - 0.7 k/ul Eos [...]
--- OUTSIDE RECORDS SUMMARY | 2022-05-22 12:59 | XMS_ITS | Encounter Summary ---
:1990 Author [facility] Address [address], [place] [address] Care Team Providers Name Role Phone Unavailable Primary Care Provider Unavailable Reason for Visit Reason Comments Refill Encounter Details Date Type Department Care Team Description 05/27/2015 Refill [facility] 401 Juan Ramon Cole MD Refill Rheumatology Clinic [address] [facility] [place] [address] [place] [address] [phone] Social History Tobacco Use Types Packs/Day Years [...] two times a day. (unchanged) Powered by [employer], Reference: [id number], 05/27/2015 1:08:20 AM CDT, Pool: [facility] Team ([id number]) documented in this encounter Plan of Treatment Not on filedocumented as of this encounter Visit Diagnoses Not on filedocumented in this encounter
--- OUTSIDE RECORDS SUMMARY | 2022-05-22 12:59 | XMS_ITS | Encounter Summary ---
:1990 Author Organization [facility] Address [address] [place] [address] Care Team Providers Name Role Phone Unavailable Primary Care Provider Unavailable Reason for Referral Consult/Transfer Care (Routine) - Closed Specialty Diagnoses / Procedures Referred By Contact Refer red To Contact Diagnoses Encounter for long-term ([place]) [place] [address] [address] [facility] [place] [address] Referral ID Status Reason Start Date Expiration Date Visits Requ ested Visits Authorized [id number] Closed 03/19/2017 04/19/2017 1 1 Scheduling Instructions Your provider has recommended you to fol low up with your Primary Supervisor [place]. If you are currently seeing a [facility] access hospital provider for your primary care needs, a corporate scheduler will contact you within the ms xt 3 business days to assist you in setting up this appointment. To schedule your ap pointment you may call [phone]. We suggest you call your [employer] about your coverage and benefits for this service. Encounter Details Date Type Department Care Team Description 03/19/2017 Refill Order [facility] [place] [address] [address] [place] [address] [place] [address] [phone] Social History Tobacco Use Types Packs/Day Years Used Date Smoking Tobacco: Former Smokeless Tobacco: Never Comments: only smoked occ Alcohol Use Standard Drinks/Week Comments Yes 0.8 (1 standard drink = 0.6 oz pure alco hol) soc Sex Assigned at Date Recorded Not on file documented as of this encounter Nursing Notes Interface, Out [employer] Prov Query - 03/19/2017 9:12 AM CDT [...] You can schedule your appointment online at [employer] or by calling the appointment center at the phone number listed above. Thank you for choosing [facility]. Lissy Renner RN [facility] Nurses Powered by [employer], Reference: [id number], 03/19/2017 9:12:50 AM CDT, Pool: TAMEKA BATISTA RN ([id number]) documented in this encounter Plan of Treatment [...]
--- OUTSIDE RECORDS SUMMARY | 2022-05-22 12:59 | XMS_ITS | Encounter Summary ---
:1990 Author Organization [facility] Address [address] [place] [address] Care Team Providers Name Role Phone Unavailable Primary Care Provider Unavailable Encounter Details Date Type Department Care Team Description 02/27/2016 Notes/Orders Specialty Center Elaine Shultz, En counter for 401 Rheumatology long-term (current) Clinic [address] [address] use of medications [address] (Primary Dx) [place] [address] [place], [place] [phone] [address] Social History Tobacco Use Types Packs/Day Years [...] - NEXT LAB APPOINTMENT: None Powered by [employer], Reference: [id number], 02/27/2016 1:15:49 AM CDT, Pool: Leslie Reymundo Dinesh ([id number]) GANG SAWYER documented in this encounter Plan of Treatment Not on filedocumented as of this encounter Visit Diagnoses Diagnosis Encounter for long-term (current) use of medications - Primary Encounter for long-term (current) use of other medications documented in this encounter
--- OUTSIDE RECORDS SUMMARY | 2022-05-22 12:59 | XMS_ITS | Encounter Summary ---
:1990 Author Organization [facility] Address [address] [place] [address] Care Team Providers Name Role Phone Unavailable Primary Care Provider Unavailable Encounter Details Date Type Department Care Team Description 04/19/[address] [facility] Orlando Mckinley MD [address] [place], [place] [address] Social History Tobacco Use Types Packs/Day Years [...] she verbalized understanding. Rajwinder Garcia LPN Shikha Barraza LPN - 04/20/2017 8:24 AM CDT Called and left message for client to return phone call. Awaiting return call. Shikha Son LPN Orlando Michael MD - 04/19/2017 3:37 PM CDT Blood tests normal Except inflammation tests. Still up sligthly, but better. No change in plans. TH documented in this encounter Plan of Treatment Not on filedocumented as of this encounter Visit Diagnoses Not on filedocumented in this encounter
--- OUTSIDE RECORDS SUMMARY | 2022-05-22 12:59 | XMS_ITS | Encounter Summary ---
:1990 Author Organization [facility] Address [address] [place] [address] Care Team Providers Name Role Phone Unavailable Primary Care Provider Unavailable Encounter Details Date Type Department Care Team Description 04/19/2017 Lab Visit Specialty Center Undiffer entiated connective Laboratory tissue disease (HRC) [address] [place] [address] Social History Tobacco Use Types [...] are in disease (HR) the results section. UA MICRO IF Routine 04/19/2017 8:54 Undifferentiated Results for this AM CDT connective tissue procedure are in disease (HR) the results section. C-REACTIVE PROTEIN Routine 04/19/2017 8:54 Undifferentiated Re sults for this AM CDT connective tissue procedure are in disease (HR) the results section. UA MICRO Routine 04/19/2017 [...] Orlando Mckinley MD LAB_1 Performing Organization Address [facility]/ZIP [facility] Phon e Number [facility] [phone] (ABNORMAL) C-Reactive Protein (04/19/2017 8:54 AM CDT) [facility] Method Time Signature C-Reactive 1.2 (H) 0.0 - 0.7 [facility] mg/dL [facility] Comment: Note: results are expressed in mg/dL. Specimen Anatomical Collection Method Collection Time Receive d Time (Source) Location / / Volume Laterality 04/19/2017 8:54 AM 7 8:57 CDT AM CDT Narrative [facility] - 04/19/2017 12:48 PM CDT Performed at [address] ??[address] Orlando Mckinley MD LAB_1 Performing Organization Address City/[facility] Phon e Number [facility] [phone] (ABNORMAL) ESR (04/19/2017 8:54 AM CDT) athologist Signature ESR 42 (H) 0 - 20 [facility] mm/hr Specimen Anatomical Collection Method Collection Time Receive d Time (Source) Location / / Volume Laterality 04/19/2017 8:54 AM 7 8:57 CDT AM CDT Narrative [facility] - 04/19/2017 3:14 PM C DT Performed at [address] [place], [place] ??[address] Orlando Mckinley MD LAB_1 Performing Organization Address City/[facility]/ZIP Code Phon e Number [facility] [phone] (ABNORMAL) UA Micro If (04/19/2017 8:54 AM CDT) [facility] gist Method Time Signature Urine Color [...] Orlando Mckinley MD LAB_1 Performing Organization Address City/[facility]/ZIP Code Phon e Number [facility] [phone] Creatinine / GFR (04/19/2017 8:54 AM CDT) Analysis Performed At [facility] logist Time Signature Creatinine 0.68 0.55 [...] 12:48 PM CDT Performed at [facility], [address] [place] [id number] Orlando Mckinley MD LAB_1 Performing Organization Address City/[facility]/ZIP Code Phon e Number [facility] [phone] Complete Blood Count-No Diff (04/19/2017 8:54 AM [...] PM C DT Performed at [facility], [address] [place] [address] Orlando Mckinley MD LAB_1 Performing Organization Address City/State/ZIP Code Phon e Number [facility] [phone] documented in this encounter Visit Diagnoses Diagnosis Undifferentiated connective tissue disea se (HRC) Unspecified diffuse connective tissue di sease documented in this encounter
--- OUTSIDE RECORDS SUMMARY | 2022-05-22 12:59 | XMS_ITS | Encounter Summary ---
:1990 [facility] Address [address], [place] [address] Care Team Providers Name Role Phone Unavailable Primary Care Provider Unavailable Reason for Visit Reason Comments Ear Pain one week Encounter Details Date Type Department Care Team Description 07/30/2015 Office Visit Dayanara Dixon, Derik healy suppurative otitis media of right ear without spontaneous rupture of tympanic membrane, recurrence not specified (Primary Dx); Practice BUSINESS SERVICES ANALYST, DNP Acute serous otitis media of left ear, r ecurrence not specified [address] [address] [address] [place] [address] [place] [address] (Wo rk) Social History Tobacco Use Types [...] Comments Blood Pressure 124/73 07/30/2015 8:16 AM MANAGER POST Pulse 81 07/30/2015 8:16 AM MANAGER POST Temperature 36.7 ??C (98.1 ??F) 07/30/2015 8:16 AM MANAGER POST Respiratory Rate - - Oxygen Saturation - - Inhaled Oxygen Concentration - - Weight 74.8 kg (165 lb) 07/30/2015 8:16 AM MANAGER POST Height - - Body Mass Index 30.42 05/10/2014 1:41 PM CDT documented in this encounter Patient Instructions Patient InstructionsDayanara Grubbs APRN, DNP - 07/30/2015 8:34 AM MANAGER POST - Take the antibiotic twice daily with food for 10 days - Use Flonase, 1 spray each nostril, daily - If still experiencing decreased hearing, fullness, or ear pain after completing antibiotic, returnto clinic GER POST documented in this encounter Progress Notes Dayanara [...] Dayanara Grubbs APRN, DNP, 07/30/2015, 11:20 AM GER POST documented in this encounter Plan of Treatment Not on filedocumented as of this encounter Visit Diagnoses Diagnosis Acute suppurative otitis media of right ear without spontaneous rupture of tympanic membrane, recurrence not specified - Felicia webb Acute serous otitis media of left ear, r ecurrence not specified documented in this encounter
--- OUTSIDE RECORDS SUMMARY | 2022-05-22 12:59 | XMS_ITS | Encounter Summary ---
:1990 Author Organization [facility] Address [address], [place] [address] Care Team Providers Name Role Phone Unavailable Primary Care Provider Unavailable Reason for Visit Reason Comments ROUTINE, FOLLOW-UP Encounter Details Date Type Department Care Team Description 05/25/2016 Office Visit [facility] Mckinley ferentiated 401 Rheumatology [facility] [place] ([facility]) (Primary Dx) [address] [place] [address] Social History Tobacco Use Types [...] is had arthralgias never any synovitis. Serologically [place] but had slight elevations of sedimentation rate [...] MCG/ACT nasal solution Apply or instill 1 [place] into both nostrils daily. 16 g 11 [...]
--- OUTSIDE RECORDS SUMMARY | 2022-05-22 12:59 | XMS_ITS | Encounter Summary ---
:1990 Author Organization [facility] Address [address] [address] Care Team Providers Name Role Phone Unavailable Primary Care Provider Unavailable Reason for Visit Reason Comments Refill hydroxychloroquine (PLAQUENI L) 200 MG tablet [Pharmacy Med Name: HYDROXYCHLOROQUINE 200 MG TA B] Encounter Details Date Type Department Care Team Description 03/01/2017 Refill [facility] 401 Orlando Mckinley (hydroxychloroquine Rheumatology Clinic MD Charles (PLAQUENIL) 200 MG tablet 401 [facility] [Pharmacy Med Name: [place] [address] HYDROXYCHLOROQUINE 200 MG [phone] TAB]) Social History Tobacco Use Types Packs/Day [...] tab by mouth daily. (changed) Powered by Signature, Reference: [id number], 03/01/2017 12:38:52 AM CDT, Pool: Arlen Perry Care Team ([id number]) documented in this encounter Plan of Treatment Not on filedocumented as of this encounter Visit Diagnoses Not on filedocumented in this encounter
--- OUTSIDE RECORDS SUMMARY | 2022-05-22 12:59 | XMS_ITS | Encounter Summary ---
:1990 Author [facility] Address [address] [address] Care Team Providers Name Role Phone Unavailable [...] [address] Myopia of right eye; [place] [address] [place], [place] Regular astigmatism of left eye [phone] Social History Tobacco Use Types Packs/Day Years Used Date Smoking Tobacco: Former Smokeless Tobacco: Never Alcohol Use Standard Drinks/Week Comments Yes 0.8 (1 standard drink = 0.6 oz pure alco hol) soc Sex Assigned at Date Recorded Not on file documented as of this encounter Patient Instructions Patient InstructionsTony Travis, OD - 05/04/2017 8:20 AM CDT Your eyes look healthy and stable. Use Ketotifen Fumarate drops twice daily during allergy season (Alaway and Zatidor are common brands) Return 1 year for 10-2,OCT, and eye exam documented in this encounter Progress Notes Tony Travis, OD - 05/04/2017 2:01 PM CDT HPI [...] for HVF, OCT, eye exam. Tony Travis, OD documented in this encounter Nursing Notes aFra Crowell COA - 05/04/2017 8:20 AM CDT [...]
--- OUTSIDE RECORDS SUMMARY | 2022-05-22 12:59 | XMS_ITS | Encounter Summary ---
:1990 Author Organization [facility] Address [address], [place] [address] Care Team Providers Name Role Phone Unavailable Primary Care Provider Unavailable Reason for Visit Reason Comments Refill ranitidine (ZANTAC) 150 MG t ablet [Pharmacy Med Name: RANITIDINE 150 MG TABLET] Encounter Details Date Type Department Care Team Description 04/07/2016 [facility]ill [facility] 435 Elaine Shultz MD Refill (ranitidine [facility] [address] [address] SALDANA (ZANTAC) 150 MG tablet 435 [place] [address] [Pharmacy Med Name: [place] [address] RANITIDINE 150 MG [phone] TABLET]) Social History Tobacco Use Types Packs/Day [...] standing order Zandra Bartholomew RN Interface, Out Surescripts Prov Query - 04/07/2016 1:26 PM CDT ranitidine [...] at bedtime if needed (changed) Powered by CompareMyFare, Reference: [id number], 04/07/2016 1:26:12 PM CDT, Pool: TAMEKA REFILL MARIIA ([id number]) documented in this encounter Plan of Treatment Not on filedocumented as of this encounter Visit Diagnoses Not on filedocumented in this encounter
--- OUTSIDE RECORDS SUMMARY | 2022-05-22 12:59 | XMS_ITS | Encounter Summary ---
:1990 Author Organization [facility] Address [address] [place] [address] Care Team Providers Name Role Phone Unavailable Primary Care Provider Unavailable Reason for Visit Reason Comments Refill Encounter Details Date Type Department Care Team Description 03/18/2015 [facility]ill [facility] 435 Zoey Oma Bower, Refill [facility] ALUMINUM CAN COLLECTOR, DEVELOPER PROVER MECHANICAL [address] [place] [address] [place] [address] [phone] (Wo rk) Social History Tobacco Use Types [...]
--- OUTSIDE RECORDS SUMMARY | 2022-05-22 12:59 | XMS_ITS | Encounter Summary ---
:1990 Author Organization [facility] Address [address], [place] [address] Care Team Providers Name Role Phone Unavailable Primary Care Provider Unavailable Reason for Visit Reason Comments Refill ranitidine (ZANTAC) 150 MG t ablet [Pharmacy Med Name: RANITIDINE 150 MG TABLET] Encounter Details Date Type Department Care Team Description 07/02/2016 [facility]ill [facility] 435 Elaine Shultz MD Refill (ranitidine [facility] [address] [address] SALDANA (ZANTAC) 150 MG tablet 435 [place] [address] [Pharmacy Med Name: [place] [address] RANITIDINE 150 MG [phone] TABLET]) Social History Tobacco Use Types Packs/Day [...] CST per standing order Edith Vázquez RN OLO MECHANIC Interface, Out Surescripts Prov Query - 07/02/2016 1:28 AM CST ranitidine [...] at bedtime if needed (unchanged) Powered by Digitick, Reference: [id number], 07/02/2016 1:28:57 AM ANNETTE, Pool: TAMEKA REFILL MARIIA ([id number]) OLO MECHANIC documented in this encounter Plan of Treatment Not on filedocumented as of this encounter Visit Diagnoses Not on filedocumented in this encounter
--- OUTSIDE RECORDS SUMMARY | 2022-05-22 12:59 | XMS_ITS | Encounter Summary ---
:1990 Author Organization [facility] Address [address] [place] [address] Care Team Providers Name Role Phone Unavailable Primary Care Provider Unavailable Encounter Details Date Type Department Care Team Description 04/28/2017 Lab Visit [facility] Specialty Gas troesophageal reflux Center 435 Laborator y disease, esophagitis [address] presence not specified [place], [place] [id number] Social History Tobacco Use Types Packs/Day Years [...] RN 04/28/2017, 3:42 PM Kaitlyn Mason APRN, MATILDA - 04/28/2017 1:55 PM CDT Juliette, Your vitamin D level is quite low. I recommend taking at least 800 to 1000 units of vitamin D3 per day and following up with your primary care provider in 3 months to monitor vitamin D levels. Please call for further questions or concerns. Kaitlyn Mason APRN, MATILDA 04/28/2017, 1:54 PM documented in this encounter [...] 04/28/2017 1:29 PM C DT Performed at [facility], [address] [place] [id number] Kaitlyn Muhammad APRN, MATILDA LAB_1 Performing Organization Address City/State/ZIP Code Phon e Number [facility] [phone] Magnesium (04/28/2017 9:13 AM CDT) P athologist Signature Magnesium 2.3 1.6 - 2.6 [facility] mg/dl Specimen Anatomical Collection Method Collection Time Receive d Time (Source) Location / / Volume Laterality 04/28/2017 9:13 AM 7 9:21 CDT AM CDT Narrative [facility] - 04/28/2017 12:58 PM CDT Performed at [facility], [address] [place] [address] ??[id number] Kaitlyn Muhammad APRN, RV SERVICE TECHNICIAN LAB_1 Performing Organization Address City/State/ZIP Code Phon e Number [facility] [phone] documented in this encounter Visit Diagnoses Diagnosis Gastroesophageal reflux disease, esophag itis presence not specified documented in this encounter
--- OUTSIDE RECORDS SUMMARY | 2022-05-22 12:59 | XMS_ITS | Encounter Summary ---
:1990 Author Organization [facility] Address [address] [place] [address] Care Team Providers Name Role Phone Nemesio Rush Primary Care Provider Unavailable Encounter Details Date Type Department Care Team Description 09/30/2016 Refill [facility] 435 Elaine Shultz MD [facility] [address] [address] [place] [address] [place] [address] [phone] Social History Tobacco Use Types Packs/Day Years [...] pt. [place] CMA 09/30/2016, 7:52 AM CARVER documented in this encounter Plan of Treatment Not on filedocumented as of this encounter Visit Diagnoses Diagnosis Encounter for long-term (current) use of medications - Primary Encounter for long-term (current) use of other medications documented in this encounter Care Teams Tour Counselor Relationship Specialty Start Date End Date Nemesio Rush PCP - General 11/22/[address] [address] documented as of this encounter
--- OUTSIDE RECORDS SUMMARY | 2022-05-22 12:59 | XMS_ITS | Encounter Summary ---
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 (Primary Dx) [place] [address] Social History Tobacco Use Types Packs/Day Years [...]
--- OUTSIDE RECORDS SUMMARY | 2022-05-22 12:59 | XMS_ITS | Encounter Summary ---
:1990 Author Organization [facility] Address [address] [place] [address] Care Team Providers Name Role Phone Unavailable Primary Care Provider Unavailable Encounter Details Date Type Department Care Team Description 08/10/2016 Lab Visit [facility] Gastroesophageal reflux [address] disease, [place] [address] not specified [phone] Social History Tobacco Use Types Packs/Day Years Used Date Smoking Tobacco: Former Smokeless Tobacco: Never Comments: only smoked occ Alcohol Use Standard Drinks/Week Comments Yes 0.8 (1 standard drink = 0.6 oz pure alco hol) soc Sex Assigned at Date Recorded Not on file documented as of this encounter Progress Notes Terri Knott RN - 08/11/2016 3:52 PM SUPERVISOR TUMBLERS Quick Note: Result letter mailed to patient. Terri Knott LPN 08/11/2016, 3:52 PM RVISOR TUMBLERS Lorrie Bhat APRN, CNP - 08/11/2016 2:37 PM SUPERVISOR TUMBLERS Quick Note: H pylori stool test is negative. Please continue to follow the recommendations as discussed in the clinic. Lorrie Ferrari APRN, MATILDA RVISOR TUMBLERS documented in this encounter Plan of Treatment Not on filedocumented as of this encounter Procedures Procedure Name Priority Date/Time Associated Diagnosis Comme nts H. PYLORI ANTIGEN Routine 08/10/2016 8:26 Gastroesophageal ref lux Results for this FECES AM SUPERVISOR TUMBLERS disease, esophagitis procedu re are in presence not specified the r esults section. documented in this encounter Results H. Pylori Antigen Feces (08/10/2016 8:26 AM SUPERVISOR TUMBLERS) Component Value Ref Test Analysis Performed At [facility] Range Method Time Signature H Pylori [facility] H Pylori (NOTE) [facility] HELICOBACTER PYLORI AG, EIA, STOOL ?? LABORATORIES ?? MICRO NUMBER: ?[id number] TEST STATUS: ? FINAL SPECIMEN SOURCE: ?? STOOL SPECIMEN QUALITY: ??ADEQUATE RESULT: ?Not Detected ?Antimicrobials, proton pump in hibitors, and ?bismuth preparations inhibit H . pylori and ?ingestion up to two week s prior to testing may ?cause false negative results. If clinically ?indicated the test shoul d be repeated on a new ?specimen obtained two weeks after discontinuing ?treatment. Test performed at [facility] [address] ??[phone] Director: MELVA SOTO MD Specimen Anatomical Collection Method Collection Time Receive d Time (Source) Location / / Volume Laterality Stool specimen 08/10/2016 8:26 AM 017 8:30 (specimen) SUPERVISOR TUMBLERS AM SUPERVISOR TUMBLERS Lorrie Bower CHEMISTRY ACCOUNT MANAGER, CARDIAC CATH TECHNOLOGIST LAB_1 Performing Organization Address City/State/ZIP Code Phon e Number [facility] [phone] documented in this encounter Visit Diagnoses Diagnosis Gastroesophageal reflux disease, esophag itis presence not specified documented in this encounter
--- OUTSIDE RECORDS SUMMARY | 2022-05-22 12:59 | XMS_ITS | Encounter Summary ---
:1990 [facility] Address [address], [place] [address] Care Team Providers Name Role Phone Unavailable Primary Care Provider Unavailable Reason for Visit Reason Comments Refill ranitidine Encounter Details Date Type Department Care Team Description 11/21/2016 Refill [facility] 435 Elaine Matute MD Refill (ranitidine) [facility] [address] [address] [facility] [place] [address] [place] [address] [phone] Social History Tobacco Use Types Packs/Day Years [...] at bedtime if needed (unchanged) Powered by Hastify, Reference: [id number], 11/21/2016 5:42:30 PM CDT, Pool: TAMEKA REFILL RN ([id number]) documented in this encounter Plan of Treatment Not on filedocumented as of this encounter Visit Diagnoses Not on filedocumented in this encounter
--- OUTSIDE RECORDS SUMMARY | 2022-05-22 12:59 | XMS_ITS | Encounter Summary ---
:1990 Author Organization [facility] Address [address] [address] Care Team Providers Name Role Phone Unavailable Primary Care Provider Unavailable Reason for Visit Reason Comments Refill hydroxychloroquine (PLAQUENI L) 200 MG tablet [Pharmacy Med Name: HYDROXYCHLOROQUINE 200 MG TA B] Encounter Details Date Type Department Care Team Description 06/04/2016 Refill [facility] 401 Orlando Mckinley (hydroxychloroquine Rheumatology Clinic MD Charles (PLAQUENIL) 200 MG tablet 401 [facility] [Pharmacy Med Name: [place] [address] HYDROXYCHLOROQUINE 200 MG [phone] TAB]) Social History Tobacco Use Types Packs/Day [...] tab by mouth daily. (changed) Powered by made.com, Reference: [id number], 06/04/2016 5:46:21 PM CDT, Pool: Arlen Perry Care Team ([id number]) documented in this encounter Plan of Treatment Not on filedocumented as of this encounter Visit Diagnoses Not on filedocumented in this encounter
--- OUTSIDE RECORDS SUMMARY | 2022-05-22 12:59 | XMS_ITS | Encounter Summary ---
:1990 Author Organization [facility] Address [address] [place] [address] Care Team Providers Name Role Phone Unavailable Primary Care Provider Unavailable Reason for Visit Reason Comments Refill fluticasone (FLONASE) 50 MCG /ACT nasal solution [Pharmacy Med Name: FLUTICASONE PROP 50 MCG SPRA Y] Encounter Details Date Type Department Care Team Description 08/31/2016 Refill [facility] Marvin Alvarez, Refi ll (fluticasone Practice MANAGER NICU, DNP (FLONASE) 50 MCG/ACT [address] [address] [address] nasal solution [place], [place] [address] [place] [address] [Pharmacy Med Name: [phone] (Wo rk) FLUTICASONE PROP 50 MCG SPRAY]) [...] CST per standing order Zandra Bartholomew RN ON FORMING MACHINE OPERATOR Interface, Out Surescripts Prov Query - 08/31/2016 5:53 PM CST fluticasone [...] into both nostrils daily. (unchanged) Powered by Mintigo, Reference: [id number], 08/31/2016 5:53:22 PM CARTON FORMING MACHINE OPERATOR, Pool: TAMEKA REFILL RN ([id number]) ON FORMING MACHINE OPERATOR documented in this encounter Plan of Treatment Not on filedocumented as of this encounter Visit Diagnoses Not on filedocumented in this encounter
--- OUTSIDE RECORDS SUMMARY | 2022-05-22 12:59 | XMS_ITS | Encounter Summary ---
:1990 Author [facility] Address [address] [address] Care Team Providers Name Role Phone Unavailable Primary Care Provider Unavailable Reason for Visit Reason Comments Refill Encounter Details Date Type Department Care Team Description 09/30/2015 [facility]ill [facility] 435 Lori Bedolla MD Refill [facility] [address] [place] [address] [place] [address] [phone] Social History Tobacco Use Types Packs/Day Years [...] send to her PCP. Yuliana Perez MD Noelle Felder RN - 09/30/2015 11:00 AM CST Unable [...] her with lab results. -to GI MD organizational development specialist to review and advise. Noelle Bryant RN TE SENSING SPECIALIST documented in this encounter Plan of Treatment Not on filedocumented as of this encounter Visit Diagnoses Not on filedocumented in this encounter
--- OUTSIDE RECORDS SUMMARY | 2022-05-22 12:59 | XMS_ITS | Encounter Summary ---
:1990 Author Organization [facility] Address [address] [place] [address] Care Team Providers Name Role Phone Unavailable Primary Care Provider Unavailable Reason for Visit Reason Comments Refill Encounter Details Date Type Department Care Team Description 11/01/2016 [facility]ill [facility] 435 Oma Bhat, Refill [facility] WIND TURBINE INSTALLER, AIRCRAFT AIR CONDITIONING MECHANIC [address] [place] [address] [place] [address] [phone] (Wo rk) Social History Tobacco Use Types [...] treatment and results of testing.?? Lorrie Ferrari, CISCO, AIRCRAFT AIR CONDITIONING MECHANIC?? 08/06/2016, 9:06 AM Refilled Prilosec per S.O. Protocol Nadia Gacres RN 11/02/2016, 9:46 AM documented in this encounter Plan of Treatment Not on filedocumented as of this encounter Visit Diagnoses Not on filedocumented in this encounter
--- OUTSIDE RECORDS SUMMARY | 2022-05-22 12:59 | XMS_ITS | Encounter Summary ---
:1990 Author Organization [facility] Address [address], [place] [address] Care Team Providers Name Role Phone Unavailable Primary Care Provider Unavailable Reason for Visit Procedure/Equipment (Routine) - Closed Specialty Diagnoses / Procedures Referred By Contact Refer red To Contact Diagnoses Gastroesophageal reflux disease, esophagitis presence not specified Lorrie Bhat, SCENIC DESIGNER, REFINERY OPERATOR [employer] [address] [place] [address] Referral ID Status Reason Start Date Expiration Date Visits Requ ested Visits Authorized [id number] Closed 08/06/2016 11/05/2017 1 1 Encounter Details Date Type Department Care Team Description 11/06/2016 Procedure Visit [facility] Specialty Christina Palacio, Center Gastroenterol tomer AKINS [address] [facility] [address] [place] [address] [address] [place], [place] [address] Social History Tobacco Use [...] in this encounter Results GI UPPER ENDOSCOPY [[id number]] (11/06/2016 12:05 PM CDT) Specimen (Source) Anatomical Collection Method Collection Time Re ceived Time Location / / Volume Laterality 11/06/2016 12:05 PM CDT Narrative GI ([facility]OVATION) - 11/06/2016 12:45 PM CDT Instrument Name: 352 Indications: ? Dyspepsia, Dysp hagia, Heartburn, Diarrhea, recent ? colonosco py unrevealing. Providers: ? Stone king MD, Billy Martinez RN, Wilian Delatorre. ? Dex Hernandez MD: [...] Code(s): ?? --- Professional - -- ? 67892, Es ophagogastroduodenoscopy, flexible, ? transoral ; with biopsy, single or multiple Diagnosis Code(s): ?? --- Professional - -- ? K21.0, Ga stro-esophageal reflux disease with ? esophagit is ? R10.13, E pigastric pain ? R13.10, D ysphagia, unspecified ? R12, Hear tburn ? R19.7, Di arrhea, unspecified CPT copyright 2016 [employer]. All rights reserved. The codes documented in this report are preliminary and upon sand conditioner machine review may be revised to meet current complianc e requirements. Attending Participation: Stone Palacio MD 11/06/2016 12:45:19 PM Number of Addenda: 0 Note Initiated On: 11/06/2016 12:05 PM Procedure Note Stone Palacio MD - 11/06/2016Formatt ing of this note might be different from the original. Instrument Name: 352 Indications: Dyspepsia, Dysphagia, Heart burn, Diarrhea, recent colonoscopy unrevealing. Providers: Stone Palacio MD, Billy Martinez RN, Wilian Hernandez RN Referring MD: Charles Osman [...] pathology results. Procedure Code(s): --- Professional --- 95137, Esophagogastroduodenoscopy, flex ible, transoral; with biopsy, single or multi ple Diagnosis Code(s): --- Professional --- K21.0, Gastro-esophageal reflux disease with esophagitis R10.13, Epigastric pain R13.10, Dysphagia, unspecified R12, Heartburn R19.7, Diarrhea, unspecified CPT copyright 2016 [employer]. All rights reserved. The codes documented in this report are preliminary and upon sand conditioner machine review may be revised to meet current complianc e requirements. Attending Participation: Stone Palacio MD 11/06/2016 12:45:19 PM Number of Addenda: 0 Note Initiated On: 11/06/2016 12:05 PM Stone Palacio MD DIGESTIVE CARE Performing Organization Address City/State/ZIP Code Phon e Number GI ([facility]OVATION) GI ([facility]OVATION) [place], [place] Surgical Path - Endoscopy (11/06/2016 7:00 AM CDT) [facility] gist Method Time Signature Histology (NOTE) [...] hours, and not longer than 72 hours. [facility]11/06/2016 Microscopic Description Microscopic examination performed. 11/09/2016 Brisa Crabtree MD [facility] Department of Pathology [address] [place] [address] ??[id number] Specimen Anatomical Collection Method Collection Time Receive d Time (Source) Location / / Volume Laterality ESOPHAGEAL 11/06/2016 7:00 AM 7 3:21 STRUCTURE / CDT PM CDT Unknown STOMACH STRUCTURE 11/06/2016 7:00 AM 04/01/2017 3:21 / Unknown CDT PM CDT ESOPHAGEAL 11/06/2016 7:00 AM 7 3:21 STRUCTURE / CDT PM CDT Unknown Stone Palacio MD LAB_1 Performing Organization Address City/State/ZIP Code Phon e Number [address] [place] [address] [address] documented in this encounter Visit Diagnoses Diagnosis Dysphagia, unspecified type [R13.10] - P rimary documented in this encounter Administered Medications Inactive Administered Medications - up to 3 most recent administrations Medication Order MAR Action Action Date Dose Rate Site klzdgbta-hppngdqixo-olaufrkbiz Given 11/06/2016 12:30 PM CDT 2 S prays (EXACTACAIN,CETACAINE) 2-2-14 % spray 1-2 [place] 1-2 [place], Topical, PRN WITH PROCEDURES, Pain, Starting on [...] Nausea, Starting on Wed11/06/16 at 1225, Until Wed11/07/16 at 0245, For 2 doses documented in this encounter
--- NOTE | 2022-05-22 13:00 | CRLHL7_ITS ---
For Patients: As a result of the Century Cures Act, medical imaging exams and procedure reports are released immediately into your electronic medical record. You may view this report before your referring provider. If you have questions, please contact your health care provider. INDICATION: Evaluate anatomy. COMPARISON: 02/16/2022 TECHNIQUE: Real time brewer scale imaging of the fetus was performed as well as color Doppler analysis of the umbilical vessels. FINDINGS: Sonographic imaging demonstrates a single living intrauterine gestation. Fetus demonstrates a regular cardiac rate of 131 beats per minute. Fetus has a vertex position. The placenta lies anteriorly without evidence of placenta previa. The edge of the placenta is located 3.1 cm from the internal cervical os. Amniotic fluid volume appears normal. Single deepest vertical pocket: 5.0 cm. The cervix is closed and measures 3.7 cm in length. The composite ultrasound gestational age is calculated at 20 weeks 5 days with an estimated sonographic due date of 10/04/2022. The estimated weight is 425 grams which lies at the 70th %. The following biometric measurements were obtained: Biparietal diameter: 4.7 cm/20 weeks 1 day 17% Head circumference: 18.5 cm/20 weeks 6 days 32nd% Abdominal circumference: 16.8 cm/21 weeks 5 days 68th% Femur length: 3.6 cm/21 weeks 3 days 55th% The HC/AC ratio measures: 1.10 range (1.06-1.25) On anatomic survey, there is a normal appearance of the cerebral ventricles, cavum septi pellucidi, cisterna magna and cerebellum. The nose, lips, and facial profile appear normal. The cervical, thoracic and lumbar spine are well visualized and appear normal. There is a normal four-chamber heart view and the left and right ventricular outflow tracts appear normal. The diaphragm and stomach appear normal. The kidneys and bladder also appear normal. There is a normal three-vessel cord and cord insertion site. The four extremities appear normal. IMPRESSION: Normal OB ultrasound exam with concordance of clinical and sonographic dating. No intrinsic abnormalities noted on anatomic survey. Dictated by Jose Pruitt MD @ 05/22/2022 3:23:35 PM (Electronically Signed)
--- OUTSIDE RECORDS SUMMARY | 2022-05-22 13:00 | XMS_ITS | Encounter Summary ---
:1990 [facility] Address [address] [place] [address] Care Team Providers Name Role Phone Unavailable Primary Care Provider Unavailable Reason for Visit Reason Comments Refill Encounter Details Date Type Department Care Team Description 10/06/2014 Refill [facility] [address], Refill [facility] FLOOR HAND, FINISHING POWDER PRESS OPERATOR [address] [place] [address] [place] [address] [phone] (Wo rk) Social History Tobacco Use Types [...]
--- OUTSIDE RECORDS SUMMARY | 2022-05-22 13:00 | XMS_ITS | Encounter Summary ---
:1990 Author [facility] Address [address] [place] [address] Care Team Providers Name Role Phone Unavailable Primary Care Provider Unavailable Reason for Visit Reason Comments Encounter Details Date Type Department Care Team Description 02/04/2015 Telephone Specialty Center 401 Orlando Mckinley MD Rheumatology Clinic [address] [place] [address] Social History Tobacco Use Types Packs/Day Years [...] understanding was voiced. Kathya Alba LPN Zandra Smith LPN - 02/08/2015 10:10 AM CDT Message left to call back. Zandra Gr LPN Nova Patel LPN - 02/06/2015 3:09 PM CDT Message [...]
--- OUTSIDE RECORDS SUMMARY | 2022-05-22 13:00 | XMS_ITS | Encounter Summary ---
:1990 Author Organization [facility] Address [address] [place] [address] Care Team Providers Name Role Phone Unavailable Primary Care Provider Unavailable Reason for Referral Consult/Transfer Care (Routine) - Closed Specialty Diagnoses / Procedures Referred By Contact Refer red To Contact Optometry Orlando Mckinley M D Optometry [address] [place] [address] Phone: Fax: Referral ID Status Reason Start Date Expiration Date Visits Requ ested Visits Authorized [id number] Closed 01/31/2015 05/01/2016 1 1 Scheduling Instructions Your provider has [facility]. You may call [phone] to schedule your a ppointment. If you prefer, a deep fryer assembler will contact you within the next 3 business d ays to assist you in setting up this appointment. Reason for Visit Reason Comments Revisit Encounter Details Date Type Department Care Team Description 01/31/2015 Office Visit [facility] 401 Orlando Mckinley rthralgia (Primary Rheumatology Clinic MD Charles Dx) [address] [place] [address] Social History Tobacco Use Types Packs/Day Years [...] 02/04/2015 2:05 PM C DT Performed at [facility], [address] [place] [address] ??[phone] Orlando Mckinley MD LAB_1 Performing Organization Address City/[facility]/ZIP Code Phon e Number [facility] [phone] RHEUMATOID FACTOR, QUANT (01/31/2015 8:38 AM CDT) athologist [facility] Quant. Rheum. <9 0 - 11 [facility] Factor IU/ml [facility] Specimen Anatomical Collection Method Collection Time Receive d Time (Source) Location / / Volume Laterality 01/31/2015 8:38 AM 5 8:43 CDT AM CDT Narrative [facility] - 01/31/2015 1:19 PM C DT Performed at [facility], [address] [place] [address] ??[phone] Orlando Mckinley MD LAB_1 Performing Organization Address City/State/ZIP Code Phon e Number [facility] [phone] TSH, SENSITIVE with FT4, FT3 (if needed) (01/31/2015 8:38 AM CDT) athologist Signature TSH, with 2.293 0.300 - [facility] Reflex 5.000 [facility] uIU/ml Specimen Anatomical Collection Method Collection Time Receive d Time (Source) Location / / Volume Laterality 01/31/2015 8:38 AM 5 8:43 CDT AM CDT Narrative [facility] - 01/31/2015 1:31 PM C DT Performed at [facility], [address] [place] [address] ??[phone] Orlando Mckinley MD LAB_1 Performing Organization Address City/[facility] Phon e Number [facility] [phone] C-REACTIVE PROTEIN (01/31/2015 8:38 AM CDT) athologist Signature C-Reactive 0.8 0.0 - 0.9 [facility] Protein mg/dl [facility] Comment: Note: results are expressed in mg/dL. Specimen Anatomical Collection Method Collection Time Receive d Time (Source) Location / / Volume Laterality 01/31/2015 8:38 AM 5 8:43 CDT AM CDT Narrative [facility] - 01/31/2015 1:19 PM C DT Performed at [facility], [address] [place] [address] ??[phone] Orlando Mckinley MD LAB_1 Performing Organization Address [facility] Phon e Number [facility] [phone] (ABNORMAL) ESR (01/31/2015 8:38 AM CDT) athologist [facility] ESR 33 (H) 0 - 20 [facility] mm/hr Specimen Anatomical Collection Method Collection Time Receive d Time (Source) Location / / Volume Laterality 01/31/2015 8:38 AM 5 8:43 CDT AM CDT Narrative [facility] - 01/31/2015 2:59 PM C DT Performed at [facility], [address] [place] [address] ??[phone] Orlando Mckinley MD LAB_1 Performing Organization Address City/[facility] Phon e Number [facility] [phone] documented in this encounter Visit Diagnoses Diagnosis Arthralgia - Primary Pain in joint, site unspecified Arthralgia Pain in joint, site unspecified documented in this encounter
--- OUTSIDE RECORDS SUMMARY | 2022-05-22 13:00 | XMS_ITS | Encounter Summary ---
:1990 Author Organization [facility] Address [address] [place] [address] Care Team Providers Name Role Phone Unavailable Primary Care Provider Unavailable Encounter Details Date Type Department Care Team Description 01/31/2015 Orders Only [facility] Laboratory Arthralgia [address] [place] [address] Social History Tobacco Use Types [...] 02/04/2015 2:05 PM C DT Performed at [facility], [address] [place] [address] ??[phone] Orlando Mckinley MD LAB_1 Performing Organization Address City/[facility]/ZIP Code Phon e Number [facility] [phone] RHEUMATOID FACTOR, QUANT (01/31/2015 8:38 AM CDT) athologist [facility] Quant. Rheum. <9 0 - 11 [facility] Factor IU/ml [facility] Specimen Anatomical Collection Method Collection Time Receive d Time (Source) Location / / Volume Laterality 01/31/2015 8:38 AM 5 8:43 CDT AM CDT Narrative [facility] - 01/31/2015 1:19 PM C DT Performed at [facility], [address] [place] [address] ??[phone] Orlando Mckinley MD LAB_1 Performing Organization Address City/State/ZIP Code Phon e Number [facility] [phone] TSH, SENSITIVE with FT4, FT3 (if needed) (01/31/2015 8:38 AM CDT) athologist [facility] TSH, with 2.293 0.300 - [facility] Reflex 5.000 [facility] uIU/ml Specimen Anatomical Collection Method Collection Time Receive d Time (Source) Location / / Volume Laterality 01/31/2015 8:38 AM 5 8:43 CDT AM CDT Narrative [facility] - 01/31/2015 1:31 PM C DT Performed at [facility], [address] [place] [address] ??[phone] Orlando Mckinley MD LAB_1 Performing Organization Address City/[facility]/ZIP Code Phon e Number [facility] [phone] C-REACTIVE PROTEIN (01/31/2015 8:38 AM CDT) athologist Signature C-Reactive 0.8 0.0 - 0.9 [facility] Protein mg/dl [facility] Comment: Note: results are expressed in mg/dL. Specimen Anatomical Collection Method Collection Time Receive d Time (Source) Location / / Volume Laterality 01/31/2015 8:38 AM 5 8:43 CDT AM CDT Narrative [facility] - 01/31/2015 1:19 PM C DT Performed at [facility], [address] [place] [address] ??[phone] Orlando Mckinley MD LAB_1 Performing Organization Address [facility] Phon e Number [facility] [phone] (ABNORMAL) ESR (01/31/2015 8:38 AM CDT) athologist Signature ESR 33 (H) 0 - 20 [facility] mm/hr Specimen Anatomical Collection Method Collection Time Receive d Time (Source) Location / / Volume Laterality 01/31/2015 8:38 AM 5 8:43 CDT AM CDT Narrative [facility] - 01/31/2015 2:59 PM C DT Performed at [facility], [address] [place] [address] ??[phone] Orlando Mckinley MD LAB_1 Performing Organization Address City/[facility] Code Phon e Number [facility] [phone] documented in this encounter Visit Diagnoses Diagnosis Arthralgia Pain in joint, site unspecified documented in this encounter
--- OUTSIDE RECORDS SUMMARY | 2022-05-22 13:00 | XMS_ITS | Encounter Summary ---
:1990 Author [facility] Address [address], [place] [address] Care Team Providers Name Role Phone Unavailable Primary Care Provider Unavailable Reason for Visit Reason Comments Refill Encounter Details Date Type Department Care Team Description 02/17/2015 Refill [facility] 401 Orlando Mckinley MD Refill Rheumatology Clinic [address] [place] [address] Social History Tobacco Use Types Packs/Day Years [...] two times a day. (unchanged) Powered by [employer], Reference: [id number], 02/17/2015 1:57:47 PM CDT, Pool: [facility] Team ([id number]) documented in this encounter Plan of Treatment Not on filedocumented as of this encounter Visit Diagnoses Not on filedocumented in this encounter
--- OUTSIDE RECORDS SUMMARY | 2022-05-22 13:01 | XMS_ITS | Encounter Summary ---
:1990 [facility] Address [address], [place] [address] Care Team Providers Name Role Phone Unavailable Primary Care Provider Unavailable Reason for Visit Reason Comments LAB RESULTS Discuss lab results that aliyah healy done in September. Encounter Details Date Type Department Care Team Description 12/14/2013 Office Visit Elaine López Fam ilial hyperlipidemia (Primary Dx); Practice Abnormal TSH [address] [place] [address] [place] [phone] Social History Tobacco Use Types Packs/Day Years [...] Patient Instructions Patient InstructionsElaine Shultz MD - 12/14/2013 12:21 PM CDT Images [...] Where can you learn more? Go to [employer] and enter I865 in the search box. Last Revised: October 20, 2011 ?? [phone] [employer] 05-14 Learning About High Cholesterol What is [...] Where can you learn more? Go to [employer] and enter Q621 in the search box. Last Revised: September 21, 2012 ?? [phone] [employer]. Thyroid-Stimulating Hormone (TSH) Test: About This [...] Where can you learn more? Go to [employer] and enter K551 in the search box. Last Revised: December 16, 2012 ?? [phone] [employer]. Low Cholesterol, Low Saturated Fat, Low [...] white bread, white, wheat, rye, raisin, oatmeal, Burundian, Khmer and Namibian muffin bread ?? Namibian muffins, plain dinner rolls, hard rolls, hamburger and hot dog rolls ?? Saltines, matzo, michael crackers ?? Baked products and quick breads made with egg whites, egg substitutes or allowed whole eggs, skimmilk and allowed fats ?? Egg and cheese breads. Commercially prepared sweetrolls, donuts, muffins, biscuits, pancakes and waffles ?? Variety green party crackers, such as Ritz and HiHo's [...] or sour cream ?? Polyunsaturated cream substitutes. [place] and peanut oils may be used ?? [...] Cream sauces made with allowed ingredients ?? [place] ?? Use nuts in moderation, except those [...] statin. Recommend to check liver function test bas alexander. 2. Abnormal TSH level. Recommend check T3 and T4 today. Depending on what result we get, decide about next step. The patient is asymptomatic right now, may monitor closely. She understood, agreed with plan. MD CHRISSY BoldenK:marisabel Dictated: 12/14/2013 16:25:25 Transcribed: 12/15/2013 07:01:06 Job: [id number] Doc: [id number] cc: documented in this encounter Plan of [...] 12/14/2013 5:10 PM C DT Performed at [facility], [address] [place] [address] ??[phone] Elaine Shultz MD LAB_1 Performing Organization Address [facility] Phon e Number [facility] [phone] T3, FREE, SERUM (12/14/2013 12:34 PM CDT) athologist Signature T3,Free 4.5 2.8 - 5.2 [facility] pg/ml Specimen Anatomical Collection Method Collection Time Receive d Time (Source) Location / / Volume Laterality 12/14/2013 12:34 12/14/2013 PM CDT 12:36 PM CDT Narrative [facility] - 12/14/2013 5:10 PM C DT Performed at [facility], [address] [place] [address] ??[phone] Elaine Shultz MD LAB_1 Performing Organization Address City/[facility] Phon e Number [facility] [phone] ALT (SGPT) (12/14/2013 12:34 PM CDT) athologist Signature ALT (SGPT) 31 0 - 69 U/L [facility] Specimen Anatomical Collection Method Collection Time Receive d Time (Source) Location / / Volume Laterality 12/14/2013 12:34 12/14/2013 PM CDT 12:36 PM CDT Narrative [facility] - 12/14/2013 4:52 PM C DT Performed at [facility], [address] [place] [address], [place] ??[phone] Elaine Shultz MD LAB_1 Performing Organization Address City/[facility]/ZIP Code Phon e Number [facility] [phone] AST (12/14/2013 12:34 PM CDT) P athologist Signature AST (SGOT) 44 0 - 66 U/L [facility] Specimen Anatomical Collection Method Collection Time Receive d Time (Source) Location / / Volume Laterality 12/14/2013 12:34 12/14/2013 PM CDT 12:36 PM CDT Narrative [facility] - 12/14/2013 4:52 PM C DT Performed at [facility], [address] ??[phone] Elaine Shultz MD LAB_1 Performing Organization Address City/[facility]/ZIP Code Phon e Number [facility] [phone] documented in this encounter Visit Diagnoses Diagnosis Familial hyperlipidemia - Primary Other and unspecified hyperlipidemia Abnormal TSH Other abnormal clinical finding Hypercholesterolemia Pure hypercholesterolemia Abnormal TSH Other abnormal clinical finding Screening, iron deficiency anemia Screening for iron deficiency anemia documented in this encounter
--- OUTSIDE RECORDS SUMMARY | 2022-05-22 13:01 | XMS_ITS | Encounter Summary ---
:1990 Author Organization [facility] Address [address] [place] [address] Care Team Providers Name Role Phone Unavailable Primary Care Provider Unavailable Reason for Visit Procedure/Equipment (Routine) - Closed Specialty Diagnoses / Procedures Referred By Contact Refer red To Contact Lorrie Bhat APRN, MATILDA [address] [place] [address] Referral ID Status Reason Start Date Expiration Date Visits Requ ested Visits Authorized [id number] Closed 05/01/2014 07/31/2015 1 1 Encounter Details Date Type Department Care Team Description 05/28/2014 Procedure Visit [facility] Specialty Christina Palacio, Bernardo Gastroenterol tomer AKINS [address] [facility] [address] [place] [address] [address] [place], [place] [address] Social History Tobacco Use Types Packs/Day Years Used Date Smoking Tobacco: Former Smokeless Tobacco: Never Comments: only smoked occ Alcohol Use Standard Drinks/Week Comments Yes 0.8 (1 standard drink = 0.6 oz pure alco hol) soc Sex Assigned at Date Recorded Not on file documented as of this encounter Progress Notes Evan Palacio MD - 05/29/2014 3:27 PM CDT Quick Note: Normal biopsies from terminal ileum (last portion of small bowel) and colon. No evidence for Crohn's disease, ulcerative colitis or microscopic colitis. Rec: - RTC with PMD, Lorrie Hardin NP as scheduled Evan Palacio MD 05/29/2014, 3:27 PM Evan Palacio MD - 05/28/2014 3:42 PM CDT [...] of procedure have been discussed with patient. Evan Palacio MD 05/28/2014, 3:42 PM documented in [...] . documented in this encounter Results COLONOSCOPY [[id number]] (05/28/2014 3:47 PM CDT) Specimen (Source) Anatomical Collection Method Collection Time Re ceived Time Location / / Volume Laterality 05/28/2014 3:47 PM CDT Narrative [facility] ([facility]) - 05/28/2014 4:16 PM CDT Indications: ? Chronic diarrhea Providers: ? Evan king MD, Billy Martinez RN Referring MD: [...] Code(s): ?? --- Professional - -- ? 35388, Co lonoscopy, flexible, proximal to splenic ? flexure; with biopsy, single or multiple Diagnosis Code(s): ?? --- Professional - -- ? 787.91, D iarrhea CPT copyright 2013 [employer]. All rights reserved. The codes documented in this report are preliminary and upon naval aircrewman mechanical review may be revised to meet current complianc e requirements. Attending Participation: Evan Palacio MD 05/28/2014 4:16 PM Number of Addenda: 0 Note Initiated On: 05/28/2014 3:47 PM Procedure Note Evan Palacio MD - 05/28/2014Formatt ing of this note might be different from the original. Indications: Chronic diarrhea Providers: Evan Palacio MD, Billy Martinez RN Referring MD: [...] iously scheduled. Procedure Code(s): --- Professional --- 96500, Colonoscopy, flexible, proximal to splenic flexure; with biopsy, single or multipl e Diagnosis Code(s): --- Professional --- 787.91, Diarrhea CPT copyright 2013 [employer]. All rights reserved. The codes documented in this report are preliminary and upon naval aircrewman mechanical review may be revised to meet current complianc e requirements. Attending Participation: Evan Palacio MD 05/28/2014 4:16 PM Number of Addenda: 0 Note Initiated On: 05/28/2014 3:47 PM Evan Palacio MD [facility] Performing Organization Address City/State/ZIP Code Phon e Number [facility] ([facility]) [facility] ([facility]) [place], [place] Surgical Path - Colonoscopy (05/28/2014 7:00 AM CDT) [facility] gist Method Time Signature Histology (NOTE) [facility] Final Report [facility] Patient Name: JULIETTE GAMING Taken: 05/28/2014 Received: 05/28/2014 Reported: 05/29/2014 Physician(s): EVAN PALACIO ([id number]) ? Final Pathologic Diagnosis A. Terminal ileum, biopsy -- No diagnostic abnormality B. Colon, random, biopsy -- No diagnostic abnormality Electronically Signed Out By ? Libra Oscar MD ??([id number] ) Procedures/Addenda Clinical History Diarrhea Gross Description [...] two slides. ?? ejaa/05/29/2014 Libra Oscar MD ??([id number] ) [facility] Department of Pathology [address] [place] [address] ??[id number] Specimen Anatomical Collection Method Collection Time Receive d Time (Source) Location / / Volume Laterality COLON STRUCTURE / 05/28/2014 7:00 AM 05/03 6:19 Unknown CDT PM CDT COLON STRUCTURE / 05/28/2014 7:00 AM 05/03 6:19 Unknown CDT PM CDT Evan Palacio MD LAB_1 Performing Organization Address City/State/ZIP Code Phon e Number [id number] [phone] documented in this encounter Visit Diagnoses Diagnosis Screen for colon cancer - Primary Special screening for malignant neoplasm s, colon documented in this encounter
--- OUTSIDE RECORDS SUMMARY | 2022-05-22 13:01 | XMS_ITS | Encounter Summary ---
:1990 Author Organization [facility] Address [address] [place] [address] Care Team Providers Name Role Phone Unavailable Primary Care Provider Unavailable Encounter Details Date Type Department Care Team Description 02/23/2014 Orders Only [facility] Screening for thyroid disord er (Primary Dx); [address] [facility] Pain in joint, multiple site s [place], [place] [address] Social History Tobacco Use Types [...] are in the results section. SM AND SM/SHIPYARD HELPER Routine 02/23/2014 1:40 PM Pain in joint, [...] TO LYME CONFIRMATORY CDT multiple sites proce dure are in PANEL) the results section. C-REACTIVE [...] 02/23/2014 2:00 PM C DT Performed at [facility], [address] [place] [address] ??[phone] Orlando Mckinley MD LAB_1 Performing Organization Address City/[facility]/ZIP Code Phon e Number [facility] [phone] DNA DOUBLE STRANDED ANTIBODY (02/23/2014 1:40 PM CDT) Component Value Ref Test Analysis Performed At [facility] gist Range Method Time Signature dsDNA 6 [...] PM 4 1:53 CDT PM CDT Narrative [facility] - 02/27/2014 2:39 PM C DT Performed at [facility], [address] ??[phone] Orlando Mckinley MD LAB_1 Performing Organization Address City/[facility]/ZIP Code Phon e Number [facility] [phone] RHEUMATOID FACTOR, QUANT(aka RFQ) [2725] (02/23/2014 1:40 PM CDT) athologist Signature Quant. Rheum. <9 0 - 11 [facility] Factor IU/ml LABORATORIES Specimen Anatomical Collection Method Collection Time Receive d Time (Source) Location / / Volume Laterality 02/23/2014 1:40 PM 4 1:53 CDT PM CDT Narrative [facility] - 02/23/2014 4:13 PM C DT Performed at [facility], [address] [place] [address] ??[id number] Orlando Mckinley MD LAB_1 Performing Organization Address [facility] Phon e Number [facility] [phone] LYME ANTIBODY [0537] (02/23/2014 1:40 PM CDT) athologist Signature Lyme Antibody 0.38 0 - 0.74 [facility] OD Ratio [facility]IES Comment: Negative Specimen Anatomical Collection Method Collection Time Receive d Time (Source) Location / / Volume Laterality 02/23/2014 1:40 PM 4 1:53 CDT PM CDT Narrative [facility] - 02/26/2014 12:08 PM CDT Performed at [facility], [address] [place] [address] ??[address] Orlando Mckinley MD LAB_1 Performing Organization Address [facility] Phon e Number [facility] [phone] ANTI SS-A (RO) (02/23/2014 1:40 PM CDT) [facility] gist Method Time Signature Anti-SSA (Ro) <0.3 0 - 6.9 [facility] result U/mL LABORATORIES Anti-SSA (NOTE) [facility] Interpreta. Anti-SSA (Ro) ?Interpretation LABORATORIES VALUE ?of Test Results 0-6.9 ? Negative 7.0-10.0 ?Equivocal >10.0 ? Positive Specimen Anatomical Collection Method Collection Time Receive d Time (Source) Location / / Volume Laterality 02/23/2014 1:40 PM 4 1:53 CDT PM CDT Narrative [facility] - 02/26/2014 11:03 AM CDT Performed at [facility], [address] [place] [address] ??[address] Orlando Mckinley MD LAB_1 Performing Organization Address [facility]/ZIP Code Phon e Number [facility] [phone] ANTI SS-B (LA) (02/23/2014 1:40 PM CDT) [facility] Method Time Signature Anti-SSB (La) <0.3 0 - 6.9 [facility] Result U/mL LABORATORIES Anti-SSB (NOTE) [facility] Interpreta. Anti-SSB (La) ?Interpretation LABORATORIES VALUE ?of Test Results 0-6.9 ? Negative 7.0-10.0 ?Equivocal >10.0 ? Positive Specimen Anatomical Collection Method Collection Time Receive d Time (Source) Location / / Volume Laterality 02/23/2014 1:40 PM 4 1:53 CDT PM CDT Narrative [facility] - 02/26/2014 11:03 AM CDT Performed at [facility], [address] [place] [address] ??[phone] Orlando Mckinley MD LAB_1 Performing Organization Address City/[facility]/ZIP Code Phon e Number [facility] [phone] AUTOABY TO JO1 AG (02/23/2014 1:40 PM CDT) Component Value Ref Test Analysis Performed At [facility] Range Method Time Signature DAKOTA-1 Antibody <1.0 NEG [facility] Reference range: <1.0 NEG LABO RATORIES Unit: AI DAKOTA-1 Antibody (NOTE) [facility] Test performed at [facility] [address] ??[phone] Director: MELVA SOTO MD Specimen Anatomical Collection Method Collection Time Receive d Time (Source) Location / / Volume Laterality 02/23/2014 1:40 PM 4 1:53 CDT PM CDT Orlando Mckinley MD LAB_1 Performing Organization Address City/[facility]/ZIP Code Phon e Number [facility] [phone] AUTOABY TO SCL 70 AG (02/23/2014 1:40 PM CDT) [facility] Method Time Signature SCL-70 Ab <1.0 NEG [facility] Reference range: <1.0 NEG LABO RATORIES Unit: AI SCL-70 Ab (NOTE) [facility] Test performed at [facility] [address] ??[phone] Director: MELVA SOTO MD Specimen Anatomical Collection Method Collection Time Receive d Time (Source) Location / / Volume Laterality 02/23/2014 1:40 PM 4 1:53 CDT PM CDT Orlando Mckinley MD LAB_1 Performing Organization Address [facility] Phon e Number [facility] [phone] SM AND SM/SHIPYARD HELPER ANTIBODIES (02/23/2014 1:40 PM CDT) Component Value Ref Test Analysis Performed At [facility] Method Time Signature Sm Antibody <1.0 NEG [facility] Reference range: <1.0 NEG LABO RATORIES Unit: AI Sm/SHIPYARD HELPER <1.0 NEG [facility] Antibody Reference range: <1.0 NEG LABO RATORIES Unit: AI Sm/SHIPYARD HELPER (NOTE) [facility] Antibody [facility] Test performed at [facility] [address] ??[phone] Director: MELVA SOTO MD Specimen Anatomical Collection Method Collection Time Receive d Time (Source) Location / / Volume Laterality 02/23/2014 1:40 PM 4 1:53 CDT PM CDT Orlando Mckinley MD LAB_1 Performing Organization Address City/[facility]/ZIP Code Phon e Number [facility] [phone] (ABNORMAL) C-REACTIVE PROTEIN(aka CRP) [0236] (02/23/2014 1:40 PM CDT) [facility] Method Time Signature C-Reactive 2.9 (H) 0.0 - 0.9 [facility] Protein mg/dl LABORATORIES Comment: Note: results are expressed in mg/dL. Specimen Anatomical Collection Method Collection Time Receive d Time (Source) Location / / Volume Laterality 02/23/2014 1:40 PM 4 1:53 CDT PM CDT Narrative [facility] - 02/23/2014 4:13 PM C DT Performed at [facility], [address] [place] [address] ??[phone] Orlando Mckinley MD LAB_1 Performing Organization Address [facility] Phon e Number [facility] [phone] CCP AB [4287] (02/23/2014 1:40 PM CDT) [...] - 02/26/2014 11:03 AM CDT Performed at [facility], [address] [place] [address] ??[address] Orlando Mckinley MD LAB_1 Performing Organization Address [facility] Phon e Number [facility] [phone] CREATININE / GFR [3711] (02/23/2014 1:40 PM [...] 02/23/2014 4:13 PM C DT Performed at [facility], [address] [place] [address] ??[address] Orlando Mckinley MD LAB_1 Performing Organization Address City/[facility]/ZIP Code Phon e Number [facility] [phone] CALCIUM [0109] (02/23/2014 1:40 PM CDT) P athologist Signature Calcium 10.1 8.4 - 10.2 [facility] mg/dl Specimen Anatomical Collection Method Collection Time Receive d Time (Source) Location / / Volume Laterality 02/23/2014 1:40 PM 4 1:53 CDT PM CDT Narrative [facility] - 02/23/2014 4:13 PM C DT Performed at [facility], [address] [place] [address] ??[address] Orlando Mckinley MD LAB_1 Performing Organization Address City/[facility]/ZIP Code Phon e Number [facility] [phone] ALT (SGPT) [0129] (02/23/2014 1:40 PM CDT) athologist Signature ALT (SGPT) 20 0 - 69 U/L [facility] Specimen Anatomical Collection Method Collection Time Receive d Time (Source) Location / / Volume Laterality 02/23/2014 1:40 PM 4 1:53 CDT PM CDT Narrative [facility] - 02/23/2014 4:13 PM C DT Performed at [facility], [address] [place] [address] ??[phone] Orlando Mckinley MD LAB_1 Performing Organization Address City/[facility]/ZIP Code Phon e Number [facility] [phone] AST [0128] (02/23/2014 1:40 PM CDT) P athologist Signature AST (SGOT) 27 0 - 66 U/L [facility] Specimen Anatomical Collection Method Collection Time Receive d Time (Source) Location / / Volume Laterality 02/23/2014 1:40 PM 4 1:53 CDT PM CDT Narrative [facility] - 02/23/2014 4:13 PM C DT Performed at [facility], [address] [place] [address] ??[phone] Orlando Mckinley MD LAB_1 Performing Organization Address City/State/ZIP Code Phon e Number [facility] [phone] HEPATITIS C AB(aka ANTI-HCV) [0982] (02/23/2014 1:40 PM CDT) [facility] Method Time Signature Anti-HCV Negative (Non NEGNR [facility] Reactive) LABORATORIES Comment: Does Not Rule Out Infection wit h HCV Specimen Anatomical Collection Method Collection Time Receive d Time (Source) Location / / Volume Laterality 02/23/2014 1:40 PM 4 1:53 CDT PM CDT Narrative [facility] - 02/26/2014 12:15 PM CDT Performed at [facility], [address] [place] [address] ??[phone] Orlando Mckinley MD LAB_1 Performing Organization Address City/[facility] Code Phon e Number [facility] [phone] (ABNORMAL) UA MICRO IF [3307] (02/23/2014 1:40 PM CDT) [facility] Method Time Signature Urine Color Yellow [...] 02/23/2014 1:59 PM C DT Performed at [facility], [address] [place] [address] ??[address] Orlando Mckinley MD LAB_1 Performing Organization Address City/[facility]/ZIP Code Phon e Number [facility] [phone] (ABNORMAL) HEMOGRAM/PLTS/DIFF [3656] (02/23/2014 1:40 PM CDT) [...] [facility] Lymph 24 % [facility] 6 % [facility] Eos 1 % [facility] Baso 0 % [facility] Neutrophil 5.9 1.8 - 7.7 [facility] Absolute k/ul LABORATORIES Lymph Absolute 2.1 1.0 - 4.8 [facility] k/ul LABORATORIES [facility] Absolute 0.5 0.1 - 0.7 [facility] k/ul [...] 02/23/2014 3:50 PM C DT Performed at [facility], [address] [place] [address] ??[address] Orlando Mckinley MD LAB_1 Performing Organization Address City/State/ZIP Code Phon e Number [facility] [phone] (ABNORMAL) ESR [0017] (02/23/2014 1:40 PM CDT) P athologist Signature ESR 43 (H) 0 - 20 [facility] mm/hr Specimen Anatomical Collection Method Collection Time Receive d Time (Source) Location / / Volume Laterality 02/23/2014 1:40 PM 4 1:53 CDT PM CDT Narrative [facility] - 02/23/2014 4:49 PM C DT Performed at [facility], [address] [place] [address] ??[address] Orlando Mckinley MD LAB_1 Performing Organization Address City/State/ZIP Code Phon e Number [facility] [phone] documented in this encounter Visit Diagnoses Diagnosis Screening for thyroid disorder - Primary Pain in joint, multiple sites documented in this encounter
--- OUTSIDE RECORDS SUMMARY | 2022-05-22 13:01 | XMS_ITS | Encounter Summary ---
:1990 Author Organization [facility] Address [address], [place] [address] Care Team Providers Name Role Phone Unavailable Primary Care Provider Unavailable Reason for Visit Reason Comments Consult, New Patient Dr. Winn referring Consult/Transfer Care (Routine) - Closed Specialty Diagnoses / Procedures Referred By Contact Refer red To Contact Orlando Mckinley M D [place] Referral ID Status Reason Start Date Expiration Date Visits Requ ested Visits Authorized [id number] Closed 03/05/2014 06/04/2015 1 1 Encounter Details Date Type Department Care Team Description 04/12/2014 Office Visit [facility] Zoey Bower, Abdom inal pain, generalized (Primary Dx); [address] [facility] Lorrie M, NANOTECHNOLOGY ENGINEERING TECHNOLOGIST, Acid r eflux; Clinic AIR BAG BUILDER Elevated C-reactive protein (CRP); [address] [place] [address] [place], [place] [phone] [facility] Social History Tobacco Use Types Packs/Day [...] Instructions Patient InstructionsLorrie Bhat APRN, MATILDA - 04/12/2014 1:34 PM CDT Please get your blood work done today engineering supplies sales prescription for Zantac at your pharmacy. Follow up in clinic with Lorrie Hardin NP , scheduled on WednesdayJuly 04 at 11:15am [address] We will contact you with results and recommendations If you have any questions or concerns, please call the [facility] at [phone]. documented in this encounter Progress Notes Lorrie Bhat APRN, MATILDA - 04/12/2014 1:42 PM CDT GASTROENTEROLOGY CONSULT NOTE DATE OF SERVICE: 04/12/2014 HISTORY OF PRESENTING ILLNESS: Juliette Gaming is a 23 yr old female here for a consultation at the request of Dr. Orlando Mckinley for evaluation abdominal pain. She reports that since she was a baby,she had digestive issues. Her mom took her to see a pairer inspector when she was a child. There was [...] IRON PROFILE (IRON,TIBC,%SAT.(CALC)) (04/12/2014 1:44 PM CDT) Patholo gist Method Time Signature Iron 76 37 [...] 04/12/2014 8:05 PM C DT Performed at [facility], [address] [place] [address] ??[phone] Lorrie Bower APRN, CNP LAB_1 Performing Organization Address City/State/ZIP Code Phon e Number [facility] [phone] FERRITIN (04/12/2014 1:44 PM CDT) athologist Signature Ferritin 20 10 - 120 [facility] ng/ml Specimen Anatomical Collection Method Collection Time Receive d Time (Source) Location / / Volume Laterality 04/12/2014 1:44 PM 4 1:47 CDT PM CDT Narrative [facility] - 04/12/2014 8:05 PM C DT Performed at [facility], [address] [place] [address] ??[phone] Lorrie Bower APRN, CNP LAB_1 Performing Organization Address [facility] Phon e Number [facility] [phone] CELIAC DISEASE PANEL AND IGA(IF NEEDED) (04/12/2014 1:44 PM CDT) Component Value Ref Test Analysis Performed At [facility] Range Method Time Signature TTG 1 0 - 6 [facility] Antibody, U/mL LABORATORIES IgA TTG IgA (NOTE) [facility] Interpreta. TTG IgA ? Interpretation LABORATORIES VALUE ? of Test Results 0-6 ? Negative 7-10 ?Equivocal >10 ? Positive Specimen Anatomical Collection Method Collection Time Receive d Time (Source) Location / / Volume Laterality 04/12/2014 1:44 PM 4 1:47 CDT PM CDT Narrative [facility] - 04/13/2014 12:34 PM CDT Performed at [facility], [address] [place] [address] ??[phone] Lorrie Bower APRN, CNP LAB_1 Performing Organization Address [facility] Phon e Number [facility] [phone] H. PYLORI IGG (04/12/2014 1:44 PM CDT) [facility] Method Time Signature H. pylori IgG Negative NEG [facility] Specimen Anatomical Collection Method Collection Time Receive d Time (Source) Location / / Volume Laterality 04/12/2014 1:44 PM 4 1:47 CDT PM CDT Narrative [facility] - 04/13/2014 3:02 PM C DT Performed at [facility], [address] [place] [address] ??[phone] Lorrie Bower APRN, CNP LAB_1 Performing Organization Address [facility] Phon e Number [facility] [phone] documented in this encounter Visit Diagnoses Diagnosis Abdominal pain, generalized - Primary Acid reflux Esophageal reflux Elevated C-reactive protein (CRP) Loose stools Abnormal feces documented in this encounter
--- OUTSIDE RECORDS SUMMARY | 2022-05-22 13:01 | XMS_ITS | Encounter Summary ---
:1990 [facility] Address [address] [place] [address] Care Team Providers Name Role Phone Victor [...] on filedocumented in this encounter Care Teams Group Insurance Specialist Relationship Specialty Start Date End Date Nemesio Rush PCP - General 11/22/[address] [place] [address] documented as of this encounter
--- OUTSIDE RECORDS SUMMARY | 2022-05-22 13:01 | XMS_ITS | Encounter Summary ---
:1990 Author Organization [facility] Address [address], [place] [address] Care Team Providers Name Role Phone Unavailable Primary Care Provider Unavailable Reason for Visit Reason Comments CONSULT Encounter Details Date Type Department Care Team Description 02/23/2014 Office Visit [facility] Orlando Lester Pain in joint, multiple site s (Primary Dx); [address] 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, [address] [place] [address] ??[address] Orlando Mckinley MD LAB_1 Performing Organization Address City/State/ZIP Code Phon e Number [facility] [phone] RHEUMATOID FACTOR, QUANT(aka RFQ) [[id number]] (02/23/2014 1:40 PM CDT) athologist Signature Quant. Rheum. <9 0 - 11 [facility] Factor IU/ml LAB[facility]ATORIES Specimen Anatomical Collection Method Collection Time Receive d Time (Source) Location / / Volume Laterality 02/23/2014 1:40 PM 4 1:53 CDT PM CDT Narrative [facility] - 02/23/2014 4:13 PM C DT Performed at [facility], [address] [place] [address] ??[address] Orlando Mckinley MD LAB_1 Performing Organization Address [facility] Phon e Number [facility] [phone] LYME ANTIBODY [[id number]] (02/23/2014 1:40 PM CDT) P athologist Signature Lyme Antibody 0.38 0 - 0.74 [facility] OD Ratio [facility] Comment: Negative Specimen Anatomical Collection Method Collection Time Receive d Time (Source) Location / / Volume Laterality 02/23/2014 1:40 PM 4 1:53 CDT PM CDT Narrative [facility] - 02/26/2014 12:08 PM CDT Performed at [facility], [address] [place] [address] ??[phone] Orlando Mckinley MD LAB_1 Performing Organization Address [facility] Phon e Number [facility] [phone] ANTI SS-A (RO) (02/23/2014 1:40 PM CDT) [...] PM 4 1:53 CDT PM CDT Narrative [facility] - 02/26/2014 11:03 AM CDT Performed at [facility], [address] [place] [address] ??[phone] Orlando Mckinley MD LAB_1 Performing Organization Address City/State/ZIP Code Phon e Number [facility] [phone] ANTI SS-B ([place]) (02/23/2014 1:40 PM CDT) [facility] Method Time Signature Anti-SSB ([place]) <0.3 0 - 6.9 [facility] Result U/mL LABORATORIES Anti-SSB (NOTE) [facility] Interpreta. Anti-SSB ([place]) ?Interpretation LABORATORIES VALUE ?of Test Results 0-6.9 ? Negative 7.0-10.0 ?Equivocal >10.0 ? Positive Specimen Anatomical Collection Method Collection Time Receive d Time (Source) Location / / Volume Laterality 02/23/2014 1:40 PM 4 1:53 CDT PM CDT Narrative [facility] - 02/26/2014 11:03 AM CDT Performed at [facility], [address] [place] [address] ??[address] Orlando Mckinley MD LAB_1 Performing Organization Address City/[facility]/ZIP Code Phon e Number [facility] [phone] AUTOABY TO JO1 AG (02/23/2014 1:40 PM CDT) Component Value Ref Test Analysis Performed At [facility] Range Method Time Signature DAKOTA-1 Antibody <1.0 NEG [facility] Reference range: <1.0 NEG LABO RATORIES Unit: AI DAKOTA-1 Antibody (NOTE) [facility] Test performed at [employer] [address] ??[phone] Director: MELVA SOTO MD Specimen Anatomical Collection Method Collection Time Receive d Time (Source) Location / / Volume Laterality 02/23/2014 1:40 PM 4 1:53 CDT PM CDT Orlando Mckinley MD LAB_1 Performing Organization Address City/State/ZIP Code Phon e Number [facility] [phone] AUTOABY TO SCL 70 AG (02/23/2014 1:40 PM CDT) [facility] Method Time Signature SCL-70 Ab <1.0 NEG [facility] Reference range: <1.0 NEG LABO [facility]ATORIES Unit: AI SCL-70 Ab (NOTE) [facility] Test performed at [employer] [address] ??[phone] Director: MELVA SOTO MD Specimen Anatomical Collection Method Collection Time Receive d Time (Source) Location / / Volume Laterality 02/23/2014 1:40 PM 4 1:53 CDT PM CDT Orlando Mckinley MD LAB_1 Performing Organization Address City/[facility] Phon e Number [facility] [phone] SM AND SM/DEFENCE FORCE SENIOR OFFICER ANTIBODIES (02/23/2014 1:40 PM CDT) Component Value Ref Test Analysis Performed At [facility] Method Time Signature Sm Antibody <1.0 NEG [facility] Reference range: <1.0 NEG LABO RATORIES Unit: AI Sm/DEFENCE FORCE SENIOR OFFICER <1.0 NEG [facility] Antibody Reference range: <1.0 NEG LABO RATORIES Unit: AI Sm/DEFENCE FORCE SENIOR OFFICER (NOTE) [facility] Antibody [facility] Test performed at [employer] [address] ??[phone] Director: MELVA SOTO MD Specimen Anatomical Collection Method Collection Time Receive d Time (Source) Location / / Volume Laterality 02/23/2014 1:40 PM 4 1:53 CDT PM CDT Orlando Mckinley MD LAB_1 Performing Organization Address City/State/[facility] Phon e Number [facility] [phone] (ABNORMAL) C-REACTIVE PROTEIN(aka CRP) [0236] (02/23/2014 1:40 PM CDT) [facility] Method Time Signature C-Reactive 2.9 (H) 0.0 - 0.9 [facility] Protein mg/dl LABORATORIES Comment: Note: results are expressed in mg/dL. Specimen Anatomical Collection Method Collection Time Receive d Time (Source) Location / / Volume Laterality 02/23/2014 1:40 PM 4 1:53 CDT PM CDT Narrative [facility] - 02/23/2014 4:13 PM C DT Performed at [facility], [address] [place] [address] ??[address] Orlando Mckinley MD LAB_1 Performing Organization Address City/[facility]/ZIP Code Phon e Number [facility] [phone] CCP AB [4287] (02/23/2014 1:40 PM CDT) [...] - 02/26/2014 11:03 AM CDT Performed at [facility], [address] [place] [address] ??[address] Orlando Mckinley MD LAB_1 Performing Organization Address [facility]/ZIP Code Phon e Number [facility] [phone] CREATININE / GFR [3711] (02/23/2014 1:40 PM [...] 02/23/2014 4:13 PM C DT Performed at [facility], [address] [place] [address] ??[address] Orlando Mckinley MD LAB_1 Performing Organization Address City/[facility]/ZIP Code Phon e Number [facility] [phone] CALCIUM [0109] (02/23/2014 1:40 PM CDT) athologist Signature Calcium 10.1 8.4 - 10.2 [facility] mg/dl Specimen Anatomical Collection Method Collection Time Receive d Time (Source) Location / / Volume Laterality 02/23/2014 1:40 PM 4 1:53 CDT PM CDT Narrative [facility] - 02/23/2014 4:13 PM C DT Performed at [facility], [address] [place] [address] ??[address] Orlando Mckinley MD LAB_1 Performing Organization Address City/[facility]/ZIP Code Phon e Number [facility] [phone] ALT (SGPT) [0129] (02/23/2014 1:40 PM CDT) athologist Signature ALT (SGPT) 20 0 - 69 U/L [facility] Specimen Anatomical Collection Method Collection Time Receive d Time (Source) Location / / Volume Laterality 02/23/2014 1:40 PM 4 1:53 CDT PM CDT Narrative [facility] - 02/23/2014 4:13 PM C DT Performed at [facility], [address] [place] [address] ??[address] Orlando Mckinley MD LAB_1 Performing Organization Address City/[facility]/ZIP Code Phon e Number [facility] [phone] AST [0128] (02/23/2014 1:40 PM CDT) athologist Signature AST (SGOT) 27 0 - 66 U/L [facility] Specimen Anatomical Collection Method Collection Time Receive d Time (Source) Location / / Volume Laterality 02/23/2014 1:40 PM 4 1:53 CDT PM CDT Narrative [facility] - 02/23/2014 4:13 PM C DT Performed at [facility], [address] [place] [address] ??[address] Orlando Mckinley MD LAB_1 Performing Organization Address City/[facility]/ZIP Code Phon e Number [facility] [phone] HEPATITIS C AB(aka ANTI-HCV) [0982] (02/23/2014 1:40 PM CDT) [facility] Method Time Signature Anti-HCV Negative (Non NEGNR [facility] Reactive) LABORATORIES Comment: Does Not Rule Out Infection wit h HCV Specimen Anatomical Collection Method Collection Time Receive d Time (Source) Location / / Volume Laterality 02/23/2014 1:40 PM 4 1:53 CDT PM CDT Narrative [facility] - 02/26/2014 12:15 PM CDT Performed at [facility], [address] [place] [address] ??[address] Orlando Mckinley MD LAB_1 Performing Organization Address City/[facility] Phon e Number [facility] [phone] (ABNORMAL) UA MICRO IF [3307] (02/23/2014 1:40 PM CDT) [facility] [employer] Method Time Signature Urine Color Yellow [facility] [...] 02/23/2014 1:59 PM C DT Performed at [facility], [address] [place] [address] ??[address] Orlando Mckinley MD LAB_1 Performing Organization Address City/[facility] Code Phon e Number [facility] [phone] (ABNORMAL) HEMOGRAM/PLTS/DIFF [3656] (02/23/2014 1:40 PM CDT) [facility] Method Time Signature WBC 8.6 4.0 - [...] [facility] Lymph 24 % [facility] Faulk 6 % [facility] Eos 1 % [facility] Baso 0 % [facility] Neutrophil 5.9 1.8 - 7.7 [facility] Absolute k/ul LABORATORIES Lymph Absolute 2.1 1.0 - 4.8 [facility] k/ul LAB[facility] Faulk Absolute 0.5 0.1 - 0.7 [facility] k/ul [...] 02/23/2014 3:50 PM C DT Performed at [facility], [address] [place] [address] ??[address] Orlando Mckinley MD LAB_1 Performing Organization Address City/State/ZIP Code Phon e Number [facility] [phone] (ABNORMAL) ESR [0017] (02/23/2014 1:40 PM CDT) P athologist Signature ESR 43 (H) 0 - 20 [facility] mm/hr Specimen Anatomical Collection Method Collection Time Receive d Time (Source) Location / / Volume Laterality 02/23/2014 1:40 PM 4 1:53 CDT PM CDT Narrative [facility] - 02/23/2014 4:49 PM C DT Performed at [facility], [address] [place] [address] ??[address] Orlando Mckinley MD LAB_1 Performing Organization Address City/State/ZIP Code Phon e Number [facility] [phone] documented in this encounter Visit Diagnoses Diagnosis Pain in joint, multiple sites - Primary Positive MELISSA (antinuclear antibody) Other and unspecified nonspecific immuno logical findings Screening for thyroid disorder - Primary Pain in joint, multiple sites documented in this encounter
--- OUTSIDE RECORDS SUMMARY | 2022-05-22 13:01 | XMS_ITS | Encounter Summary ---
:1990 Author Organization [facility] Address [address] [place] [address] Care Team Providers Name Role Phone Unavailable Primary Care Provider Unavailable Reason for Visit Reason Comments Refill Encounter Details Date Type Department Care Team Description 10/15/2012 Refill [facility] Marysol Vitale APRN, Refill Obstetrics and Gynec ology [facility] [address] [place], [place] [address] Social History Tobacco Use Types [...]
--- OUTSIDE RECORDS SUMMARY | 2022-05-22 13:01 | XMS_ITS | Encounter Summary ---
:1990 Author Organization [facility] Address [address] [place] [address] Care Team Providers Name Role Phone Unavailable Primary Care Provider Unavailable Encounter Details Date Type Department Care Team Description 12/16/2011 Orders Only [facility] Abnormal laboratory test; [address] [place] [address] Social History Tobacco Use Types Packs/Day [...] Elaine Shultz MD LAB_1 Performing Organization Address City/[facility] Phon e Number [facility] [employer] [phone] [address] (ABNORMAL) ESR (12/16/2011 2:57 PM CDT) athologist Signature ESR 28 (H) 0 - 20 [facility] mm/hr Specimen Anatomical Collection Method Collection Time Receive d Time (Source) Location / / Volume Laterality 12/16/2011 2:57 PM 2 2:59 CDT PM CDT Elaine Shultz MD LAB_1 Performing Organization Address [facility] Phon e Number [facility] [employer] [phone] [facility] [address] [place] [address] (ABNORMAL) C-REACTIVE PROTEIN (12/16/2011 2:57 PM CDT) [facility] Method Time Signature C-Reactive 1.5 (H) 0.0 - 0.9 [facility] Protein mg/dl Comment: Note: results are expressed in mg/dL. Specimen Anatomical Collection Method Collection Time Receive d Time (Source) Location / / Volume Laterality 12/16/2011 2:57 PM 2 2:59 CDT PM CDT Elaine Shultz MD LAB_1 Performing Organization Address [facility] Phon e Number [facility] [phone] [address] RHEUMATOID FACTOR, QUANT (12/16/2011 2:57 PM CDT) athologist Signature Quant. Rheum. <9 0 - 11 [facility] Factor IU/ml Specimen Anatomical Collection Method Collection Time Receive d Time (Source) Location / / Volume Laterality 12/16/2011 2:57 PM 2 2:59 CDT PM CDT Elaine Shultz MD LAB_1 Performing Organization Address [facility] Phon e Number [facility] [employer] [phone] [address] (ABNORMAL) MELISSA SCREEN (12/16/2011 2:57 PM CDT) [facility] Method Time Signature MELISSA Screen Positive (A) NEG [facility] Comment: This is a test that requires interpretat ion by your provider and does not necessarily indicate that you have a specific disease. Specimen Anatomical Collection Method Collection Time Receive d Time (Source) Location / / Volume Laterality 12/16/2011 2:57 PM 2 2:59 CDT PM CDT Elaine Shultz MD LAB_1 Performing Organization Address [facility] Phon e Number [facility] [employer] [phone] [address] (ABNORMAL) HEMOGRAM/PLTS (12/16/2011 2:57 PM [...] Elaine Shultz MD LAB_1 Performing Organization Address [facility] Phon e Number [facility] [phone] [address] VITAMIN D 25-HYDROXY, TOTAL (V77.99) (12/16/2011 2:57 PM CDT) athologist Signature Vitamin 31.3 30 - 80 [facility] D,25-OH, Tot ng/mL Comment: Deficiency: ??< 20 ng/mL Insufficiency: ??20-29 ng/mL Optimum Level: ??30-80 ng/mL Possible Toxicity: > 80 ng/mL Performed at [facility] Specimen Anatomical Collection Method Collection Time Receive d Time (Source) Location / / Volume Laterality 12/16/2011 2:57 PM 2 2:58 CDT PM CDT Elaine Shultz MD LAB_1 Performing Organization Address [facility] Phon e Number [facility] [phone] [address] documented in this encounter Visit Diagnoses Diagnosis Abnormal laboratory test Other abnormal clinical finding Arthralgia Pain in joint, site unspecified documented in this encounter
--- OUTSIDE RECORDS SUMMARY | 2022-05-22 13:01 | XMS_ITS | Encounter Summary ---
:1990 Author Organization [facility] Address [address] [place] [address] Care Team Providers Name Role Phone Unavailable Primary Care Provider Unavailable Reason for Visit Reason Onset Date Comments QUESTIONS, GENERAL 10/10/2013 Encounter Details Date Type Department Care Team Description 10/10/[address] [facility] [place] [place] [facility] Unknown, Ph ysician QUESTIONS, GENERAL Obstetrics and Gynec ology [address] [place], [place] [phone] (Wo rk) Social History Tobacco Use Types Packs/Day Years Used Date Smoking Tobacco: Former Smokeless Tobacco: Never Comments: only smoked occ Alcohol Use Standard Drinks/Week Comments Yes 0.8 (1 standard drink = 0.6 oz pure alco hol) soc Sex Assigned at Date Recorded Not on file documented as of this encounter Nursing Notes Marysol Vitale, ACTIVITIES COORDINATOR, FULFILLMENT SPECIALIST - 10/17/2013 9:28 AM CDT Pt was [...] asking for OCP refill, please advise. Brooke Linder RN 2:31 PM Tracy Weiss RN - 10/10/2013 2:38 PM CDT Patient is given our fax #. States she will be having blood drawn 10/12/13. Tracy Weiss RN Heather Purdy - 10/10/2013 2:23 PM CDT Patient would like to speak to his either provider or nurse Name of patient's provider: Marysol Vitale Summarize the patient's question or concern: PT WILL HAVE HER CHOLESTEROL CHECKED AT A CLINIC IN [place] AND THEN HAVE THE RESULTS SENT TO [...]
--- OUTSIDE RECORDS SUMMARY | 2022-05-22 13:01 | XMS_ITS | Encounter Summary ---
:1990 Author Organization [facility] Address [address], [place] [address] Care Team Providers Name Role Phone Unavailable Primary Care Provider Unavailable Reason for Visit Reason Comments Control Consult high cholesterol Encounter Details Date Type Department Care Team Description 12/14/2013 Office Visit [facility] Chaya Armando C ontraception (Primary Obstetrics and MD Dx) Gynecology [address] [address] [place] [address] [phone] Social History Tobacco Use Types Packs/Day Years [...] MD - 12/14/2013 1:27 PM CDT Call [phone] to schedule insertion of Nexplanon or Andreia. documented in this encounter Progress Notes Chaya Armando MD - 12/14/2013 1:12 PM CDT DEPUTY FIRE MARSHAL Office Note Chief Complaint: Needs to change [...]
--- OUTSIDE RECORDS SUMMARY | 2022-05-22 13:01 | XMS_ITS | Encounter Summary ---
:1990 Author Organization [facility] Address [address], [place] [address] Care Team Providers Name Role Phone Unavailable Primary Care Provider Unavailable Reason for Referral Consult/Transfer Care (Routine) - Closed Specialty Diagnoses / Procedures Referred By Contact Refer red To Contact Orlando Mckinley M D [place] Referral ID Status Reason Start Date Expiration Date Visits Requ ested Visits Authorized [id number] Closed 03/05/2014 06/04/2015 1 1 Scheduling Instructions Your provider has recommended an appoint ment with [facility]. You may call [phone] to schedule yo ur appointment. If you prefer, a optical effects camera operator will contact you within the next 3 in days to assist you in setting up this appointment. Reason for Visit Reason Comments ROUTINE, FOLLOW-UP Encounter Details Date Type Department Care Team Description 03/05/2014 Office Visit [facility] Orlando Mckinley ferentiated [address] Rheumatology MD [facility] [place] (Primary Dx) [address] [place], [place] [id number] Social History Tobacco Use Types Packs/Day Years [...] Name Type Priority Associated Diagnoses Order S [facility] GASTROENTEROLOGY Referral Routine Ordered: CONSULT-ADULTS documented as of this encounter Visit Diagnoses Diagnosis Undifferentiated connective tissue disea se (HRC) - Primary Unspecified diffuse connective tissue di sease documented in this encounter
--- OUTSIDE RECORDS SUMMARY | 2022-05-22 13:01 | XMS_ITS | Encounter Summary ---
:1990 Author Organization [facility] Address [address] [address] Care Team Providers Name Role Phone Unavailable Primary Care Provider Unavailable Encounter Details Date Type Department Care Team Description 02/23/2014 Notes/Orders [facility] Marysol Vitale for thyroid Obstetrics and L, BUSHLER, BARTACKER disorder Gynecology [address] [place], [place] [address] Social History Tobacco Use Types [...] 02/23/2014 4:34 PM C DT Performed at [facility], [address] ??[address] Marysol Vitale APRN, MATILDA LAB_1 Performing Organization Address City/State/ZIP Code Phon e Number [facility] [phone] documented in this encounter Visit Diagnoses Diagnosis Screening for thyroid disorder documented in this encounter
--- OUTSIDE RECORDS SUMMARY | 2022-05-22 13:01 | XMS_ITS | Encounter Summary ---
:1990 Author Organization [facility] Address [address], [place] [address] Care Team Providers Name Role Phone Unavailable Primary Care Provider Unavailable Reason for Visit Reason Comments Follow-up, NOS IMMUNIZATIONS Encounter Details Date Type Department Care Team Description 05/10/2014 Office Visit [facility] Orlando Mckinley for immunization (Primary Dx); [address] Rheumatology MD [facility] Unspecified inflammatory polyarth[facility] [address] [place] [address] Social History Tobacco Use Types [...]
--- OUTSIDE RECORDS SUMMARY | 2022-05-22 13:01 | XMS_ITS | Encounter Summary ---
:1990 Author Organization [facility] Address [address] [place] [address] Care Team Providers Name Role Phone Victor Manuel, Clinician Primary Care Provider Unavailable Encounter Details Date Type Department Care Team Description 08/26/2014 Emergency Room External to [facility], Provider EAR PAIN Social History [...] on filedocumented in this encounter Care Teams Manager [employer] Relationship Specialty Start Date End Date Nemesio Rush PCP - General 11/22/18 [address] [facility] [place] [address] documented as of this encounter
--- OUTSIDE RECORDS SUMMARY | 2022-05-22 13:01 | XMS_ITS | Encounter Summary ---
:1990 Author Organization [facility] Address [address] [place] [address] Care Team Providers Name Role Phone Victor [...] filedocumented in this encounter Care Teams Quality Systems Technician Relationship Specialty Start Date End Date Nemesio Rush PCP - General 11/22/18 [address] [facility] [place] [address] documented as of this encounter
--- OUTSIDE RECORDS SUMMARY | 2022-05-22 13:01 | XMS_ITS | Encounter Summary ---
:1990 Author Organization [facility] Address [address] [place] [address] Care Team Providers Name Role Phone Unavailable Primary Care Provider Unavailable Encounter Details Date Type Department Care Team Description 12/14/2013 Orders Only [facility] Hypercholesterolemia; [address] Abnormal TSH; Rogelio Lloyd [place] [address] 3 Screening, iron deficiency a nemia [phone] Social History Tobacco Use Types Packs/Day Years [...] 12/14/2013 3:46 PM C DT Performed at [facility], [address] [place] [address] ??[id number] Marysol Vitale APRN, REMOTE OPERATIONS PRODUCER LAB_1 Performing Organization Address City/[facility]/ZIP Code Phon e Number [facility] [phone] FREE T4 (12/14/2013 12:34 PM CDT) athologist Signature T4, Free 1.0 0.8 - 2.2 [facility] ng/dl Specimen Anatomical Collection Method Collection Time Receive d Time (Source) Location / / Volume Laterality 12/14/2013 12:34 12/14/2013 PM CDT 12:36 PM CDT Narrative [facility] - 12/14/2013 5:10 PM C DT Performed at [facility], [address] [place] [address] ??[id number] Elaine Shultz MD LAB_1 Performing Organization Address City/[facility]/ZIP Code Phon e Number [facility] [phone] T3, FREE, SERUM (12/14/2013 12:34 PM CDT) athologist Signature T3,Free 4.5 2.8 - 5.2 [facility] pg/ml Specimen Anatomical Collection Method Collection Time Receive d Time (Source) Location / / Volume Laterality 12/14/2013 12:34 12/14/2013 PM CDT 12:36 PM CDT Narrative [facility] - 12/14/2013 5:10 PM C DT Performed at [facility], [address] [place] [address] ??[id number] Elaine Shultz MD LAB_1 Performing Organization Address [facility]/ZIP Code Phon e Number [facility] [phone] ALT (SGPT) (12/14/2013 12:34 PM CDT) athologist Signature ALT (SGPT) 31 0 - 69 U/L [facility] Specimen Anatomical Collection Method Collection Time Receive d Time (Source) Location / / Volume Laterality 12/14/2013 12:34 12/14/2013 PM CDT 12:36 PM CDT Narrative [facility] - 12/14/2013 4:52 PM C DT Performed at [facility], [address] [place] [address] ??[id number] Elaine Shultz MD LAB_1 Performing Organization Address [facility] Phon e Number [facility] [phone] AST (12/14/2013 12:34 PM CDT) athologist Signature AST (SGOT) 44 0 - 66 U/L [facility] Specimen Anatomical Collection Method Collection Time Receive d Time (Source) Location / / Volume Laterality 12/14/2013 12:34 12/14/2013 PM CDT 12:36 PM CDT Narrative [facility] - 12/14/2013 4:52 PM C DT Performed at [facility], [address] [place] [address] ??[id number] Elaine Shultz MD LAB_1 Performing Organization Address City/[facility]/ZIP Code Phon e Number [facility] [phone] documented in this encounter Visit Diagnoses Diagnosis Hypercholesterolemia Pure hypercholesterolemia Abnormal TSH Other abnormal clinical finding Screening, iron deficiency anemia Screening for iron deficiency anemia documented in this encounter
--- OUTSIDE RECORDS SUMMARY | 2022-05-22 13:01 | XMS_ITS | Encounter Summary ---
:1990 [facility] Address [address] [place] [address] Care Team Providers Name Role Phone Unavailable Primary Care Provider Unavailable Encounter Details Date Type Department Care Team Description 10/31/2013 Orders Only Rogelio Lloyd Marysol Childs [facility] Practice L, SUPERVISOR SEWING ROOM, CHIEF OF SAFETY AND PROTECTION examination, [address] unspecified (Primary SLICK Leone 5543 3 Dx) [phone] Social History Tobacco Use Types Packs/Day Years [...] EXTERNAL 5.60 RESULTS MIU/ML Comment: PERFORMED AT [facility] [place], [place] Specimen (Source) Anatomical Collection Method Collection Time Re ceived Time Location / / Volume Laterality 10/13/2013 9:24 AM CDT Marysol Vitale APRN, CHIEF OF SAFETY AND PROTECTION LAB_1 Performing Organization Address City/[facility] Code Phon e Number EXTERNAL RESULTS (ABNORMAL) LIPID PANEL AND DIRECT LDL(IF NEEDED) (10/13/2013 9:24 AM CDT) athologist [facility] Cholesterol 342 (A) 0.0 - 200.0 EXTERNAL MG/DL RESULTS Comment: PERFORMED AT [facility] [place], [place] Triglyceride 193 30.0 - 200.0 MG/DL EXTERNAL RESULTS Comment: PERFORMED AT [facility] [place], [place] HDL 68 (A) 40 - 60 MG/DL EXTERNAL RESULTS Comment: PERFORMED AT [place], [place] LDL, Calc. 235 (A) 0 - 99 MG/DL EXTERNAL RESULTS Comment: PERFORMED AT [facility] [place], [place] Specimen (Source) Anatomical Collection Method Collection Time Re ceived Time Location / / Volume Laterality 10/13/2013 9:24 AM CDT Marysol Vitale APRN, CHIEF OF SAFETY AND PROTECTION LAB_1 Performing Organization Address [facility] Phon e Number EXTERNAL RESULTS (ABNORMAL) LDL CHOLESTEROL, DIRECT MEASURED (10/13/2013 9:24 AM CDT) athologist Signature LDL, Direct 263 (A) 0 - 99 EXTERNAL MG/DL RESULTS Comment: PERFORMED AT [facility] [place], [place] Specimen (Source) Anatomical Collection Method Collection Time Re ceived Time Location / / Volume Laterality 10/13/2013 9:24 AM CDT Marysol Vitale APRN, MATILDA LAB_1 Performing Organization Address [facility] Phon e Number EXTERNAL RESULTS HEMOGLOBIN, BLOOD (10/13/2013 9:24 AM CDT) athologist Signature Hemoglobin 12.6 12.0 - 16.0 EXTERNAL GM/DL RESULTS Comment: PERFORMED AT [facility] [place], [place] Specimen (Source) Anatomical Collection Method Collection Time Re ceived Time Location / / Volume Laterality 10/13/2013 9:24 AM CDT Marysol Vitale APRN, MATILDA LAB_1 Performing Organization Address [facility] Phon e Number EXTERNAL RESULTS GLUCOSE - FASTING > 8 HRS FASTING (V77.1) (10/13/2013 9:24 AM CDT) athologist Signature Glucose 90 70 - 99 EXTERNAL MG/DL RESULTS Comment: PERFORMED AT [facility] [place], [place] Specimen (Source) Anatomical Collection Method Collection Time Re ceived Time Location / / Volume Laterality 10/13/2013 9:24 AM CDT Marysol Vitale APRN, MATILDA LAB_1 Performing Organization Address [facility] Phon e Number EXTERNAL RESULTS documented in this encounter Visit Diagnoses Diagnosis Laboratory examination, unspecified - Pr imary documented in this encounter
--- OUTSIDE RECORDS SUMMARY | 2022-05-22 13:01 | XMS_ITS | Encounter Summary ---
:1990 Author Organization [facility] Address [address] [place] [address] Care Team Providers Name Role Phone Unavailable Primary Care Provider Unavailable Reason for Visit Reason Comments Encounter Details Date Type Department Care Team Description 02/27/2014 Telephone [facility] [address] Orlando Mckinley MD [facility] [address] [place] [address] Social History Tobacco Use Types Packs/Day Years [...]
--- OUTSIDE RECORDS SUMMARY | 2022-05-22 13:01 | XMS_ITS | Encounter Summary ---
:1990 Author Organization [facility] Address [address] [place] [address] Care Team Providers Name Role Phone Unavailable Primary Care Provider Unavailable Reason for Visit Reason Onset Date Comments REFERRAL REQUEST 10/13/2013 Encounter Details Date Type Department Care Team Description 10/13/2013 Telephone [facility] Marysol Vitale, REFERRAL REQUEST Obstetrics and Gynec ology CENTER RECEPTIONIST, SUPERVISOR MATRIX [address] [place], [place] [address] Social History Tobacco Use Types [...] orders for fasting lab work faxed to [phone]. Orders on chart per Evie Vitale. Faxed to number given by pt. Pt informed and given fax number to have results sent here. Brooke Linder RN 8:58 AM Javan Hightower - 10/13/2013 8:20 AM CDT What referral/order is being requested: Needing document stating needs labs done. Why is the referral/order needed: will not draw blood at [facility] unless pt has written documentation. Is it okay to leave detailed message on your voicemail? yes [Wedding Photographer/Appt Center: If this call is after 3 p.m., communicate to patient: If we are not able to get back to you by the end of the day and your symptoms worsen please contact the Careline] [Wedding Photographer: Please inform patient that a referral does [...] 02/23/2014 4:34 PM C DT Performed at [facility], [address] [place] [address] ??[phone] Marysol Vitale CENTER RECEPTIONIST, SUPERVISOR MATRIX LAB_1 Performing Organization Address City/State/ZIP Code Phon e Number [facility] [phone] HEMOGLOBIN, BLOOD (12/14/2013 12:35 PM CDT) athologist Signature Hemoglobin 12.9 12.0 - 16.0 [facility] g/dl Specimen Anatomical Collection Method Collection Time Receive d Time (Source) Location / / Volume Laterality 12/14/2013 12:35 12/14/2013 PM CDT 12:36 PM CDT Narrative [facility] - 12/14/2013 3:46 PM C DT Performed at [facility], [address] [place] [address] ??[phone] Marysol Vitale APRN, MATILDA LAB_1 Performing Organization Address City/State/ZIP Code Phon e Number [facility] [phone] documented in this encounter Visit Diagnoses Diagnosis Hypercholesterolemia - Primary Pure hypercholesterolemia Screening for thyroid disorder Screening for diabetes mellitus Screening, iron deficiency anemia Screening for iron deficiency anemia Hypercholesterolemia Pure hypercholesterolemia Abnormal TSH Other abnormal clinical finding Screening, iron deficiency anemia Screening for iron deficiency anemia Screening for thyroid disorder documented in this encounter
--- OUTSIDE RECORDS SUMMARY | 2022-05-22 13:01 | XMS_ITS | Encounter Summary ---
:1990 Author Organization [email or web address] Address [address], [place] [address] Care Team Providers Name Role Phone Unavailable Primary Care Provider Unavailable Reason for Visit Reason Onset Date Comments FYI 03/13/2014 Encounter Details Date Type Department Care Team Description 03/13/2014 Telephone Specialty Center 401 Orlando Mckinley MD [facility] Rheumatology Clinic [address] 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 Twice a day,and cut prednisone by 1/2 [...]
--- OUTSIDE RECORDS SUMMARY | 2022-05-22 13:01 | XMS_ITS | Encounter Summary ---
:1990 Author Organization [facility] Address [address] [place] [address] Care Team Providers Name Role Phone Unavailable Primary Care Provider Unavailable Reason for Referral Procedure/Equipment (Routine) - Closed Specialty Diagnoses / Procedures Referred By Contact Refer red To Contact Caio Bhat APRN, CNP [address] [place] [address] Referral ID Status Reason Start Date Expiration Date Visits Requ ested Visits Authorized [id number] Closed 05/01/2014 07/31/2015 1 1 Scheduling Instructions Your provider [facility]. You may call [phone] to schedule yo ur appointment. If you prefer, a warp picker will contact you within the next 3 busin ess days to assist you in setting up this appointment. Reason for Visit Reason Onset Date Comments RESULTS, TEST 04/26/2014 Encounter Details Date Type Department Care Team Description 04/26/2014 Telephone [facility] Oma Jaramillo RESULTS, TEST [facility] CISCO Soto CNP [facility] [address] [place] [address] [place] [address] [phone] (Wo rk) Social History Tobacco Use Types [...] caio mckeon Where was the test done: specialty center When did you have it done: 04-12-14 If a prescription is needed, would you like it filled at our [facility]??? pharmacy? no [Commutator V Ring Assembler/Appt Center: Was the pharmacy entered into the Preferred Pharmacy field? Yes] Is it okay to leave detailed message on your voicemail? [phone] [Commutator V Ring Assembler/Appt Center: If this call is after 3 p.m., communicate to patient: If we are not able to get back to you by the end of the day and your symptoms worsen please contact the Careline] [Commutator V Ring Assembler: Inform patient that if they are active with online patient services they can receive their results online (only available for 12 years and younger and 18 years and older)] documented in this encounter Plan of Treatment Scheduled Referrals Name Type Priority Associated Diagnoses Order S donna COLONOSCOPY-DIAGNOSTIC Referral Routine Order ed: 05/01/2014 documented as of this encounter Visit Diagnoses Not on filedocumented in this encounter
--- OUTSIDE RECORDS SUMMARY | 2022-05-22 13:01 | XMS_ITS | Encounter Summary ---
:1990 Author Organization [facility] Address [address] [place] [address] Care Team Providers Name Role Phone Unavailable Primary Care Provider Unavailable Reason for Referral Consult/Transfer Care - Closed Specialty Diagnoses / Procedures Referred By Contact Refer red To [place] [address] [address] Referral ID Status Reason Start Date Expiration Date Visits Requ ested Visits Authorized [id number] Closed 12/23/2011 1 1 Scheduling Instructions Your provider [facility]. You may call [phone] to schedule your a ppointment. If you prefer, a recruiting scheduler will contact you within the next 3 business d ays to assist you in setting up this appointment. Reason for Visit Reason Onset Date Comments LAB RESULTS 12/22/2011 Encounter Details Date Type Department Care Team Description 12/22/2011 Telephone Rogelio Palma P Elaine Latham MD LAB RESULTS [address]43 [address] [place] [address] [phone] (Wo rk) Social History Tobacco Use Types [...] pt. She would like a referral for Street Light Servicer Supervisor. She agrees to start Iron and recheck in 12 weeks. Dafne Thornton LPN - 12/22/2011 11:21 AM CDT Left message to return call. Dafne Thornton LPN - 12/22/2011 9:52 AM CDT Message copied by DAFNE HTORNTON on WedDecember 22, 2011 9:52 AM ------ Message from: ELAINE MATUTE Created: WedDecember 21, 2011 10:26 AM Mildly abnormal labs,recommended Rheumatology consult and supplement with IRON 1T DAILY,RECHECK at 12 week. Elaine Matute MD documented in this encounter Plan of Treatment Scheduled Referrals Name Type Priority Associated Diagnoses Order S [facility] RHEUMATOLOGY Referral Routine Ordered: 2011 CONSULT-ADULTS documented as of this encounter Visit Diagnoses Diagnosis Arthralgia - Primary Pain in joint, site unspecified documented in this encounter
--- OUTSIDE RECORDS SUMMARY | 2022-05-22 13:01 | XMS_ITS | Encounter Summary ---
:1990 Author Organization [facility] Address [address] [address] Care Team Providers Name Role Phone Unavailable Primary Care Provider Unavailable Reason for Visit Reason Comments CONSULT Nexplanon Encounter Details Date Type Department Care Team Description 04/05/2014 [facility] Chaya Armando I nsertion of Obstetrics and MD implantable subdermal Gynecology [address] contraceptive (Primary [address] [place], [place] Dx) [place] [address] [phone] Social History Tobacco Use Types Packs/Day Years [...] Armando MD - 04/05/2014 12:58 PM CDT BIOINFORMATICS ANALYST Office Note Chief Complaint: Discuss control SUBJECTIVE: [...] for a follow up visit. Lot number [id number] Chaya Armando MD documented in this encounter Plan of Treatment Not on filedocumented as of this encounter Visit Diagnoses Diagnosis Insertion of implantable subdermal contr aceptive - Primary documented in this encounter
--- OUTSIDE RECORDS SUMMARY | 2022-05-22 13:01 | XMS_ITS | Encounter Summary ---
:1990 Author [facility] Address [address], [place] [address] Care Team Providers Name Role Phone Unavailable Primary Care Provider Unavailable Reason for Visit Reason Comments ROUTINE HEALTH MAINTENANCE Encounter Details Date Type Department Care Team Description 05/26/[address] [facility] general medical examination at health care facility (Primary Dx); Obstetrics and L, CISCO, LUNCHROOM FOOD SERVICE SUPERVISOR Screening for malignant neoplasm of the cervix; Gynecology Screening examination for ve nereal disease; [address] Elevated lipids [place], [place] [address] Social History Tobacco Use Types [...] documented in this encounter Progress Notes Nile Vitale APRN, LUNCHROOM FOOD SERVICE SUPERVISOR - 05/26/2013 10:58 AM CDT SUBJECTIVE: Juliette [...] findings: external genitalia normal, Bartholin's glands, urethra, [place]'s glands negative, vaginal mucosa normal, cervix clear, normal sized uterus, adnexae negative. Rectal Exam:rectal not indicated by age criteria and lack of symptoms ASSESSMENT: Satisfactory annual cardiology specialist exam Pt had seen FP prov last yr for jt pain -+ MELISSA-was ref to rheumatology and hasn't been seen yet OCPs working well for BC-wishes to renew Elevated lipids 2011-see lab result PLAN: Pap smear Genprobe Pt will sched appt w a Manager Transit as rec by Dr Shultz-gave #s Re:elevated lipids-quite high in 2012.Needs to RTC for fasting labs:lipids,tsh,fbs and rech hgb.If lipids cont to be very elevated will need to D/C ocps or would rec she see her PMD for mgt and control-therefore rx for OCPs renewed just x 3 months for now,giving her time to get back for labs and see PMD if elevated .[She states she goes to college in [place] and is diff to sched appt -will try for Dec when on break] UTD on vaccines Flu vaccine today RTC in one year for Preventative exam and call if concerns PE: Reviewed health maintenance including diet, regular exercise and periodic exams. Nile Vitale CNP Rajwinder Anne CMA - 05/26/2013 10:48 AM CDT Pre-visit planning Does patient want a machine room engineer present during exam? No PARA 0000 Health [...] PM CDT) P athologist Signature Source Cervix [facility] Chlamydia Negative NEG [facility] Comment: Test Performed by Merchandising Team Lead Mediated Amplification GC (N. gonorrhoeae) Negative [facility]G [facility] Comment: Test Performed by Merchandising Team Lead Mediated Amplification Specimen Anatomical Collection Method Collection Time Receive d Time (Source) Location / / Volume Laterality 05/26/2013 4:30 PM 3 4:35 CDT PM CDT Narrative [facility] - 05/29/2013 2:20 PM C DT Performed at [facility], [address] [place] [address] ??[phone] Nile Vitale PAINTING TECHNICIAN, LUNCHROOM FOOD SERVICE SUPERVISOR LAB_1 Performing Organization Address City/State/ZIP Code Phon e Number [facility] [phone] PAP TEST, ROUTINE (05/26/2013 4:30 PM CDT) Component Value Ref Test Analysis Performed At [facility] Range Method Time Signature Cytology (NOTE) [facility] Community Living Instructor Cytology Report LABORATORI ES Patient Name: JULIETTE GAMING Taken: 05/26/2013 Received: 05/29/2013 Reported: 06/08/2013 Physician(s): NILE VITALE ([id number]) ?Source of Specimen Pap Test, Routine Cervical/Endocervical: ?Specimen Adequacy ?Satisfactory for evaluation. ??Endocervical component present. ? Final Cytologic Interpretation/Result NEGATIVE FOR INTRAEPITHELIAL LESION OR MALIGNANCY (NILM) ?Other Cytologic Findings Inflammation Electronically Signed Out By ELISHA Johnson (ASCP) ELISHA Johnson (ASCP) ? Pap Smear History Date of Last Menstrual Period: 05/21/2013 ?? Microscopic Description Microscopic examination is performed. [facility] Department of Pathology [address] [place] [address] ??[id number] Specimen Anatomical Collection Method Collection Time Receive d Time (Source) Location / / Volume Laterality 05/26/2013 4:30 PM 3 9:22 CDT AM CDT Nile Vitale APRN, LUNCHROOM FOOD SERVICE SUPERVISOR LAB_1 Performing Organization Address City/State/ZIP Code Phon e Number [facility] [phone] documented in this encounter Visit Diagnoses Diagnosis Routine general medical examination at [facility] facility - Primary Routine general medical examination at a [facility] facility Screening for malignant neoplasm of the cervix Screening examination for venereal disea se Elevated lipids (HRC) Other and unspecified hyperlipidemia documented in this encounter
--- OUTSIDE RECORDS SUMMARY | 2022-05-22 13:01 | XMS_ITS | Encounter Summary ---
:1990 Author [facility] Address [address] [place] [address] Care Team Providers Name Role Phone Unavailable Primary Care Provider Unavailable Reason for Visit Reason Comments Refill Encounter Details Date Type Department Care Team Description 07/28/2014 Refill [facility] [address] Oma Bower, Refill [facility] SLATE SPLITTER, MARINE ERECTOR [address] [place] [address] [place] [address] [phone] (Wo rk) Social History Tobacco Use Types [...] protocol. Chrissie Paniagua LPN 07/30/2014 8:11 AM RNMENT GUARD documented in this encounter Plan of Treatment Not on filedocumented as of this encounter Visit Diagnoses Not on filedocumented in this encounter
--- OUTSIDE RECORDS SUMMARY | 2022-05-22 13:01 | XMS_ITS | Encounter Summary ---
:1990 [facility] Address [address] [place] [address] Care Team Providers Name Role Phone Unavailable Primary Care Provider Unavailable Reason for Visit Reason Comments Refill Encounter Details Date Type Department Care Team Description 02/22/2013 Refill [facility] Samm Braden MD Refill Obstetrics and Gynec ology [address] [address] [place] [address] [place], [place] [address] [phone] Social History Tobacco Use Types Packs/Day Years [...]
--- OUTSIDE RECORDS SUMMARY | 2022-05-22 13:02 | XMS_ITS | Encounter Summary ---
:1990 Author Organization Replaced by [facility] Address [address] [place] [address] Care Team Providers Name Role Phone Unavailable Primary Care Provider Unavailable Reason for Visit Reason Comments MEDICATION CHECK follow up on Zoloft. LAB TESTS, NOS Pt due for Chlamydia MEDICATION CHECK refill pended Encounter Details Date Type Department Care Team Description 02/18/2011 Office Visit Elaine López Maj or depressive disorder, single episode, moderate (Primary Dx); Practice MD Screening for STDs (sexually transmitted diseases); [address] [address] Contraceptive surveillance; [address] Insomnia [address] [address] [phone] Social History Tobacco Use Types Packs/Day Years [...] in this encounter Patient Instructions Patient InstructionsElaine hSultz MD - 02/18/2011 1:54 PM CDT Sleeping [...] and eliminate as much light as possible. [place] the bed for sleep and sex. Don't [...] high school, the patient has been taking hpck-xpn-jtgacit melatonin, which seemed to help in the [...] aids, except may get a trial of awke-dkh-zqagsxj Tylenol PM or Aleve PM to regulate sleep cycle in the beginning. 3. Contraception. Refill of Sprintec. Recommend a Pap smear at age 22. Also will screen the patient for Chlamydia. Agreed with the plan. Elaine Shultz MD GLK:radha Dictated: 02/18/2011 14:17:05 Transcribed: 02/19/2011 09:21:10 Job: [id number] Doc: [id number] cc: Elaine Shultz MD - 02/18/2011 1:57 [...] Results CHLAMYDIA, URINE (02/18/2011 2:01 PM CDT) [facility] Method Time Signature C.trachomatis, Negative [facility] Urine Comment: Test Performed by Piano Case Maker Mediated Amplification Specimen Anatomical Collection Method Collection Time Receive d Time (Source) Location / / Volume Laterality Urine specimen 02/18/2011 2:01 PM 011 2:04 (specimen) CDT PM CDT Elaine Shultz MD LAB_1 Performing Organization Address City/State/ZIP Code Phon e Number [facility] [phone] [address] documented in this encounter Visit Diagnoses Diagnosis Major depressive disorder, single episod e, moderate ([facility]) - Primary Major depressive disorder, single episod e, moderate Screening for STDs (sexually transmitted diseases) Screening examination for venereal disea se Contraceptive surveillance Contraceptive surveillance, unspecified Insomnia Insomnia, unspecified documented in this encounter
--- OUTSIDE RECORDS SUMMARY | 2022-05-22 13:02 | XMS_ITS | Encounter Summary ---
:1990 Author Organization [facility] Address [address], [place] [address] Care Team Providers Name Role Phone Unavailable Primary Care Provider Unavailable Reason for Visit Reason Onset Date Comments Refill 05/27/2010 Encounter Details Date Type Department Care Team Description 05/27/2010 Refill [facility] Elaine Latham MD Refill [address] [facility] [address] [place], [place] [address] [place], [place] [address] (Wo rk) Social History Tobacco Use Types [...] Major depressive disorder, single episod e, moderate ([facility]) Major depressive disorder, single episod e, moderate documented in this encounter
--- OUTSIDE RECORDS SUMMARY | 2022-05-22 13:02 | XMS_ITS | Encounter Summary ---
:1990 Author Organization [facility] Address [address] [address] Care Team Providers Name Role Phone Unavailable Primary Care Provider Unavailable Reason for Visit Reason Comments BLEEDING, BREAKTHROUGH Encounter Details Date Type Department Care Team Description 03/06/2010 Office Visit [facility] Chaya Armando M etrorrhagia (Primary Obstetrics and MD Dx) Gynecology [address] [place], [place] [address] [phone] Social History Tobacco Use Types Packs/Day Years [...] Chaya Armando - 03/06/2010 4:26 PM CDT CEMENT OR CONCRETE FINISHING SUPERVISOR Office Note Chief Complaint: Intermenstrual bleeding on OCP's. SUBJECTIVE: 19 yr old P0 was seen by her web content editor in 05/2009. She was requesting contraception at [...]
--- OUTSIDE RECORDS SUMMARY | 2022-05-22 13:02 | XMS_ITS | Encounter Summary ---
:1990 Author Organization [facility] Address [address] [place] [address] Care Team Providers Name Role Phone Justina Santiago MD Primary Care Provider Unavailable Reason for Visit Reason Comments CONSULT birthcontrol consult. Encounter Details Date Type Department Care Team Description 05/16/2009 Office Visit Justina Pacheco, Contr ol (Primary Dx); Pediatrics Need for Prophylactic Vaccin ation and Inoculation Against Varicella; [address] Screening [place] [address] Social History Tobacco Use Types Packs/Day [...] 3:15 PM CDT >> Jessika Astudillo CMA [facility] May 16, 2009 3:[address] [...] Negative [facility] Comment: Test Performed by Cut To Length Operator Mediated Amplification Source Urine [facility] Specimen Anatomical Collection Method Collection Time Receive d Time (Source) Location / / Volume Laterality 05/16/2009 4:05 PM 9 4:09 CDT PM CDT Justina Santiago MD LAB_1 Performing Organization Address City/State/ZIP Code Phon e Number [facility] [phone] [phone] TEST (URINE) (05/16/2009 4:05 PM CDT) Component Value Ref Test Analysis Performed At [facility] Range Method Time Signature HCG, Urine Negative [facility] Negative = <25 mIU/ml If is suspected, suggest repeat in 48-72 hours or confirm results with a quantitative hCG test. Specimen Anatomical Collection Method Collection Time Receive d Time (Source) Location / / Volume Laterality Urine specimen 05/16/2009 4:05 PM 009 4:09 (specimen) CDT PM CDT Justina Santiago MD LAB_1 Performing Organization Address City/State/ZIP Code Phon e Number [facility] [phone] [phone] documented in this encounter Visit Diagnoses Diagnosis control - Primary Unspecified contraceptive management Need for prophylactic vaccination and in oculation against varicella Screening Screening for unspecified condition documented in this encounter Care Teams Laborer Steel Handling Relationship Specialty Start Date End Date Justina Santiago MD PCP - General 04/25/07 02/03/10 documented as of this encounter
--- OUTSIDE RECORDS SUMMARY | 2022-05-22 13:02 | XMS_ITS | Encounter Summary ---
:1990 [facility] Address [address] [place] [address] Care Team Providers Name Role Phone Justina Santiago MD Primary Care Provider Unavailable Encounter Details Date Type Department Care Team Description 03/07/2009 Emergency Room External to [facility], Provider ITCHING Social History Tobacco [...] on filedocumented in this encounter Care Teams Instructor Tap Dancing Relationship Specialty Start Date End Date Justina Santiago MD PCP - General 04/25/07 02/03/10 documented as of this encounter
--- OUTSIDE RECORDS SUMMARY | 2022-05-22 13:02 | XMS_ITS | Encounter Summary ---
:1991 Author Organization [facility] Address [address] [place] [address] Care Team Providers Name Role Phone Unavailable Primary Care Provider Unavailable Encounter Details Date Type Department Care Team Description 10/08/2011 Orders Only [facility] Dairy product intolerance; [address] Bloating; Rogelio Lloyd [place] [address] Hypercholesterolemia [phone] Social History Tobacco Use Types Packs/Day Years [...] i ntolerance Results for this PANEL,FASTING AM LICENSE CLERK Bloating procedure are in the results section. LIPID PANEL AND Routine 10/08/2011 11:07 Hypercholesterolemia Results for this DIRECT LDL(IF AM LICENSE CLERK procedure are in NEEDED) the results section. VITAMIN D Routine 10/08/2011 11:07 Bloating Results for this 25-HYDROXY, TOTAL AM LICENSE CLERK procedure are in the results section. COMPLETE BLOOD Waiting 10/08/2011 11:07 Dairy product i ntolerance Results for this COUNT-NO DIFF AM LICENSE CLERK Bloating procedure are in the results section. ALT (SGPT) Routine 10/08/2011 11:07 Bloating Results for this AM LICENSE CLERK procedure are i n the results section. AST Routine 10/08/2011 11:07 Bloating Results for this AM LICENSE CLERK procedure are i n the results section. documented in this encounter Results BASIC METABOLIC PANEL,FASTING (10/08/2011 11:07 AM LICENSE CLERK) Analysis Performed At Patho logist Time Signature [...] / Volume Laterality 10/08/2011 11:07 10/08/2011 AM LICENSE CLERK 11:08 AM LICENSE CLERK Paul Taveras MD LAB_1 Performing Organization Address [facility] Phon e Number [facility] [phone] [address] AST (10/08/2011 11:07 AM LICENSE CLERK) athologist [facility] AST (SGOT) 22 0 - 55 U/L [facility] Specimen Anatomical Collection Method Collection Time Receive d Time (Source) Location / / Volume Laterality 10/08/2011 11:07 10/08/2011 AM LICENSE CLERK 11:08 AM LICENSE CLERK Paul Taveras MD LAB_1 Performing Organization Address [facility] Phon e Number [facility] [phone] [address] ALT (SGPT) (10/08/2011 11:07 AM LICENSE CLERK) athologist Signature ALT (SGPT) 15 0 - 69 U/L [facility] Specimen Anatomical Collection Method Collection Time Receive d Time (Source) Location / / Volume Laterality 10/08/2011 11:07 10/08/2011 AM LICENSE CLERK 11:08 AM LICENSE CLERK Paul Taveras MD LAB_1 Performing Organization Address [facility] Phon e Number [facility] [phone] [facility] [address] [place] [phone] (ABNORMAL) LIPID PANEL AND DIRECT LDL(IF NEEDED) (10/08/2011 11:07 AM LICENSE CLERK) [facility] Method Time Signature Cholesterol 371 (H) 0 - 199 [facility] mg/dl Triglyceride 168 (H) 0 - 149 [facility] mg/dl HDL 68 >40 mg/dl [facility] LDL, Calc. 269 (H) 0 - 129 [facility] mg/dl Non HDL Chol, 303 mg/dl [facility] Calc Comment: Non HDLC goal is 30 mg/dl above the patient's desired LDLC goal. Hours Fasting 12 hours [facility] Specimen Anatomical Collection Method Collection Time Receive d Time (Source) Location / / Volume Laterality 10/08/2011 11:07 10/08/2011 AM LICENSE CLERK 11:08 AM LICENSE CLERK Paul Taveras MD LAB_1 Performing Organization Address [facility] Phon e Number [facility] [phone] [address] (ABNORMAL) VITAMIN D 25-HYDROXY, TOTAL (V77.99) (10/08/2011 11:07 AM LICENSE CLERK) [facility] Method [place] Signature Vitamin 21.3 (L) 30 - 80 [facility] D,25-OH, Tot ng/mL Comment: Deficiency: ??< 20 ng/mL Insufficiency: ??20-29 ng/mL Optimum Level: ??30-80 ng/mL Possible Toxicity: > 80 ng/mL Performed at [facility] Specimen Anatomical Collection Method Collection Time Receive d Time (Source) Location / / Volume Laterality 10/08/2011 11:07 10/08/2011 AM LICENSE CLERK 11:09 AM LICENSE CLERK Paul Taveras MD LAB_1 Performing Organization Address [facility] Phon e Number [facility] [phone] [address] (ABNORMAL) HEMOGRAM/PLTS (10/08/2011 11:07 AM LICENSE CLERK) athologist Signature WBC 5.7 4.0 - 11.0 [facility] k/ul RBC 4.75 4.0 - 5.2 [facility] M/ul Hemoglobin 13.1 12.0 - [facility] 16.0 g/dl HCT 40.0 36.0 - [facility] 46.0 % MCV 84.0 80 - 100 [facility] fl MCH 27.6 26 - 34 pg [facility] MCHC 32.8 32 - 36 [facility] g/dl RDW 11.2 (L) 11.5 - [facility] 14.5 % Platelets 326 150 - 450 [facility] k/ul Specimen Anatomical Collection Method Collection Time Receive d Time (Source) Location / / Volume Laterality 10/08/2011 11:07 10/08/2011 AM LICENSE CLERK 11:08 AM LICENSE CLERK Paul Taveras MD LAB_1 Performing Organization Address [facility] Phon e Number [facility] [phone] [phone] documented in this encounter Visit Diagnoses Diagnosis Dairy product intolerance Other specified intestinal malabsorption Bloating Flatulence, eructation, and gas pain Hypercholesterolemia Pure hypercholesterolemia documented in this encounter
--- OUTSIDE RECORDS SUMMARY | 2022-05-22 13:02 | XMS_ITS | Encounter Summary ---
:1991 Author Organization [facility] Address [address] [place] [address] Care Team Providers Name Role Phone Justina [...] GARTH OLIVAS PROVIDER - 07/21/2007 12:00 AM LITIGATION SUPPORT ANALYST documented in this encounter Plan of Treatment Not on filedocumented as of this encounter Visit Diagnoses Not on filedocumented in this encounter Care Teams Peer Financial Counselor Relationship Specialty Start Date End Date Justina Santiago MD PCP - General 04/25/07 02/03/10 documented as of this encounter
--- OUTSIDE RECORDS SUMMARY | 2022-05-22 13:02 | XMS_ITS | Encounter Summary ---
:1990 Author Organization [facility] Address [address] [place] [address] Care Team Providers Name Role Phone Justina Santiago MD Primary Care Provider Unavailable Encounter Details Date Type Department Care Team Description 04/22/2009 [facility] Nursing [address] [place] [address] [id number] Social History Tobacco Use Types Packs/Day Years Used Date Smoking Tobacco: Never Alcohol Use Standard Drinks/Week Comments Not Asked 0 (1 standard drink = 0.6 oz pure alcoho l) Sex Assigned at Date Recorded Not on file documented as of this encounter Plan of Treatment Not on filedocumented as of this encounter Visit Diagnoses Not on filedocumented in this encounter Care Teams Bioinformatics Associate Relationship Specialty Start Date End Date Justina Santiago MD PCP - General 04/25/07 02/03/10 documented as of this encounter
--- OUTSIDE RECORDS SUMMARY | 2022-05-22 13:02 | XMS_ITS | Encounter Summary ---
:1990 Author Organization [facility] Address [address], [place] [address] Care Team Providers Name Role Phone Unavailable Primary Care Provider Unavailable Reason for Visit Reason Comments DEPRESSION Encounter Details Date Type Department Care Team Description 02/06/2010 Office Visit Elaine López, or Depressive Practice MD Disorder, Single [address] Episode, Mod[place], [place] [address] [address] (Primary Dx) [phone] [place] [address] (Wo rk) Social History Tobacco Use Types [...] are suffering from depression, please contact the [facility] to schedule an appointment. documented [...] score today is 17. ASSESSMENT AND PLAN: Wcxftatp-cxla-ziy female with major depression, moderate. 1. Had [...] Major depressive disorder, single episod e, moderate ([facility]) - Primary Major depressive disorder, single episod e, moderate documented in this encounter
--- OUTSIDE RECORDS SUMMARY | 2022-05-22 13:02 | XMS_ITS | Encounter Summary ---
:1990 Author Organization [facility] Address [address] [address] Care Team Providers Name Role Phone Unavailable Primary Care Provider Unavailable Reason for Visit Reason Comments MEDICATION CHECK Encounter Details Date Type Department Care Team Description 03/13/2010 Office Visit Elaine López, or Depressive Practice MD Disorder, [facility] [address] Episode, Moderate [place] [address] [address] (Primary Dx) [phone] [place], [place] [address] (Wo rk) Social History Tobacco Use Types [...] that next week she is going to [place] and she will start college and she [...] score today is 7. ASSESSMENT AND PLAN: Cvrifhun-hcwn-pgg female to follow up with major depression. [...]
--- OUTSIDE RECORDS SUMMARY | 2022-05-22 13:02 | XMS_ITS | Encounter Summary ---
:1990 Author Organization [facility] Address [address], [place] [address] Care Team Providers Name Role Phone Unavailable Primary Care Provider Unavailable Reason for Visit Reason Onset Date Comments Lab Orders Needed 10/04/2011 Encounter Details Date Type Department Care Team Description 10/04/2011 Telephone [facility] Eduarda Shultz MD Lab Orders Needed [facility] [address] [address] [place] [address] [place], [place] [address] [phone] Social History Tobacco Use Types Packs/Day Years [...] seen. Transferred to schedule. Etelvina Reddy RN LING ENGINEER Brisa Hooper - 10/05/2011 2:27 PM CST Pt returned call LING ENGINEER Etelvina Reddy, RN - 10/05/2011 8:34 AM CST Why is patient requesting these labs? Any symptoms? Left message to call back. Etelvina Reddy RN LING ENGINEER Jossy Mack - 10/04/2011 4:22 PM CST [...] have for the services you are requesting. LING ENGINEER documented in this encounter Plan of Treatment Not on filedocumented as of this encounter Visit Diagnoses Not on filedocumented in this encounter
--- OUTSIDE RECORDS SUMMARY | 2022-05-22 13:02 | XMS_ITS | Encounter Summary ---
:1990 Author Organization [facility] Address [address] [address] Care Team Providers Name Role Phone Unavailable Primary Care Provider Unavailable Reason for Visit Reason Comments MEDICATION CHECK refill Encounter Details Date Type Department Care Team Description 07/29/2010 Office Visit Elaine López Maj or depressive disorder, single episode, moderate (Primary Dx); Practice MD Contraceptive surveillance [address] Rogelio Lloyd [facility] [address] [address] [place] [phone] [address] Social History Tobacco Use Types Packs/Day Years Used Date Smoking Tobacco: Never Alcohol Use Standard Drinks/Week Comments No 0 (1 standard drink = 0.6 oz pure alcoho l) Sex Assigned at Date Recorded Not on file documented as of this encounter Last Filed Vital Signs Vital Sign Reading Time Taken Comments Blood Pressure 104/54 07/29/2010 4:48 PM FULL SERVICE VENDING DRIVER Pulse 80 07/29/2010 4:48 PM FULL SERVICE VENDING DRIVER Temperature - - Respiratory Rate - - Oxygen Saturation - - Inhaled Oxygen Concentration - - Weight 58.5 kg (129 lb) 07/29/2010 4:48 PM FULL SERVICE VENDING DRIVER Height - - Body Mass Index 23.79 03/06/2010 4:05 PM CDT documented in this encounter Progress Notes Elaine Shultz MD - 07/30/2010 10:53 AM FULL SERVICE VENDING DRIVER DATE OF SERVICE: 07/29/2010 This is a [...] Dictated: 07/29/2010 17:10:41 Transcribed: 07/30/2010 08:46:13 Job: [id number] Doc: [id number] cc: SERVICE VENDING DRIVER Elaine Shultz MD - 07/29/2010 5:10 PM CST This office note has been dictated. Elaine Shultz MD SERVICE VENDING DRIVER documented in this encounter Plan of Treatment Not on filedocumented as of this encounter Visit Diagnoses Diagnosis Major depressive disorder, single episod e, moderate ([facility]) - Primary Major depressive disorder, single episod e, moderate Contraceptive surveillance Contraceptive surveillance, unspecified documented in this encounter
--- OUTSIDE RECORDS SUMMARY | 2022-05-22 13:02 | XMS_ITS | Encounter Summary ---
:[address] [facility] Address [address] [place] [address] Care Team Providers Name Role Phone Unavailable Primary Care Provider Unavailable Encounter Details Date Type Department Care Team Description 03/19/2010 Emergency Room External to [facility], DYSURIA S UPRAPUBIC Provider DISCOMFORT [...]
--- OUTSIDE RECORDS SUMMARY | 2022-05-22 13:02 | XMS_ITS | Encounter Summary ---
:1990 Author Organization [facility] Address [address] [place] [address] Care Team Providers Name Role Phone Justina [...] on filedocumented in this encounter Care Teams Insurance Auditor Relationship Specialty Start Date End Date Justina Santiago MD PCP - General 04/25/07 02/03/10 documented as of this encounter
--- OUTSIDE RECORDS SUMMARY | 2022-05-22 13:02 | XMS_ITS | Encounter Summary ---
:1990 Author Organization [facility] Address [address] [place] [address] Care Team Providers Name Role Phone JackJustina grant MD Primary Care Provider Unavailable Reason for Visit Reason Comments SHOT,FLU Encounter Details Date Type Department Care Team Description 05/23/2008 Office Visit [facility] Need for Prophylactic [address] [place] [address] Inoculation Against [phone] Influenza (Prim jean Dx) Social History Tobacco [...] Primary documented in this encounter Care Teams Customer Service Advocate Relationship Specialty Start Date End Date Justina Santiago MD PCP - General 04/25/07 02/03/10 documented as of this encounter
--- OUTSIDE RECORDS SUMMARY | 2022-05-22 13:02 | XMS_ITS | Encounter Summary ---
:1990 Author Organization [facility] Address [address], [place] [address] Care Team Providers Name Role Phone Unavailable Primary Care Provider Unavailable Reason for Visit Reason Comments Refill Encounter Details Date Type Department Care Team Description 12/09/2010 Refill [facility] Elaine Latham MD Refill [address] [facility] [address] [place], [place] [address] [place] [address] [phone] (Wo rk) Social History Tobacco Use Types Packs/Day Years Used Date Smoking Tobacco: Never Alcohol Use Standard Drinks/Week Comments No 0 (1 standard drink = 0.6 oz pure alcoho l) Sex Assigned at Date Recorded Not on file documented as of this encounter Nursing Notes Zandra Bartholomew RN - 12/09/2010 1:13 PM CDTApproved Prescriptions: Disp Refills sertraline (AKA ZOLOFT) 50 MG tablet 135 Niu5Smn: TAKE 1.5 TABLETS BY MOUTH DAILY.Authorizing Provider: ELAINE MATUTE User: ZANDRA BARTHOLOMEW Zandra Bartholomew RN - 12/09/2010 1:13 PM CDT Refilled per standing orders. Zandra Bartholomew R.N. documented in this encounter Plan of Treatment Not on filedocumented as of this encounter Visit Diagnoses Not on filedocumented in this encounter
--- OUTSIDE RECORDS SUMMARY | 2022-05-22 13:02 | XMS_ITS | Encounter Summary ---
:1990 Author Organization [facility] Address [address] [place] [address] Care Team Providers Name Role Phone Unavailable Primary Care Provider Unavailable Reason for Visit Reason Comments JOINT PAIN knees and wrists. Labs Needed follow up on Vit D. Pt is du e for follow up cholest., but she is not fasting. Encounter Details Date Type Department Care Team Description 12/16/2011 Office Visit Elaine López, Carl hralgia (Primary Dx); Practice Abnormal laboratory test [address] Rogelio [place] [address] [place] [address] (Wo rk) Social History Tobacco Use Types [...] your doctor if you can take an acms-fny-webelto medicine. ?? Use a cane, crutch, walker, [...] Where can you learn more? Go to Graph[employer]im[employer] and enter Z807 in the search box. ?? [phone] [employer], [employer]. Content Version: 9.2.550782; Last Revised: November 10, 2010 Patellofemoral Pain [...] Where can you learn more? Go to [employer]im[employer] and enter U786 in the search box. ?? [phone] [employer], [employer]. Content Version: 9.2.233348; Last Revised: May 08, 2011 documented in [...] Dictated: 12/16/2011 15:07:10 Transcribed: 12/17/2011 09:43:25 Job: [id number] Doc: [id number] cc: documented in this encounter Plan of Treatment Not on filedocumented as of this encounter Results (ABNORMAL) ESR (12/16/2011 2:57 PM CDT) P athologist Signature ESR 28 (H) 0 - 20 [facility] mm/hr Specimen Anatomical Collection Method Collection Time Receive d Time (Source) Location / / Volume Laterality 12/16/2011 2:57 PM 2 2:59 CDT PM CDT Elaine Shultz MD LAB_1 Performing Organization Address [facility] Phon e Number [facility] [place] [phone] [address] (ABNORMAL) C-REACTIVE PROTEIN (12/16/2011 2:57 PM CDT) [facility] gist Method Time Signature C-Reactive 1.5 (H) 0.0 - 0.9 [facility] Protein mg/dl Comment: Note: results are expressed in mg/dL. Specimen Anatomical Collection Method Collection Time Receive d Time (Source) Location / / Volume Laterality 12/16/2011 2:57 PM 2 2:59 CDT PM CDT Elaine Shultz MD LAB_1 Performing Organization Address [facility] Phon e Number [facility] [place] [phone] [phone] RHEUMATOID FACTOR, QUANT (12/16/2011 2:57 PM CDT) P athologist Signature Quant. Rheum. <9 0 - 11 [facility] Factor IU/ml Specimen Anatomical Collection Method Collection Time Receive d Time (Source) Location / / Volume Laterality 12/16/2011 2:57 PM 2 2:59 CDT PM CDT Elaine Shultz MD LAB_1 Performing Organization Address [facility] Phon e Number [facility] [phone] [phone] (ABNORMAL) MELISSA SCREEN (12/16/2011 2:57 PM CDT) [facility] gist Method Time Signature MELISSA Screen Positive (A) NEG [facility] Comment: This is a test that requires interpretat ion by your provider and does not necessarily indicate that you have a specific disease. Specimen Anatomical Collection Method Collection Time Receive d Time (Source) Location / / Volume Laterality 12/16/2011 2:57 PM 2 2:59 CDT PM CDT Elaine Shultz MD LAB_1 Performing Organization Address [facility] Phon e Number [facility] [phone] [address] (ABNORMAL) HEMOGRAM/PLTS (12/16/2011 2:57 PM CDT) athologist Signature WBC 5.0 4.0 - 11.0 [facility] k/ul RBC 4.20 4.0 - 5.2 [facility] M/ul Hemoglobin 11.7 (L) 12.0 - [facility] 16.0 g/dl HCT 35.7 (L) 36.0 - [facility] 46.0 % MCV 85.0 80 - 100 [facility] fl MCH 27.9 26 - 34 pg [facility] MCHC 32.8 32 - 36 [facility] g/dl RDW 12.7 11.5 - [facility] 14.5 % Platelets 285 150 - 450 [facility] k/ul Specimen Anatomical Collection Method Collection Time Receive d Time (Source) Location / / Volume Laterality 12/16/2011 2:57 PM 2 2:59 CDT PM CDT Elaine Shultz MD LAB_1 Performing Organization Address [facility] Phon e Number [facility] [phone] [address] VITAMIN D 25-HYDROXY, TOTAL (V77.99) (12/16/2011 2:57 PM CDT) athologist Signature Vitamin 31.3 30 - 80 [facility] D,25-OH, Tot ng/mL Comment: Deficiency: ??< 20 ng/mL Insufficiency: ??20-29 ng/mL Optimum Level: ??30-80 ng/mL Possible Toxicity: > 80 ng/mL Performed at [facility] Specimen Anatomical Collection Method Collection Time Receive d Time (Source) Location / / Volume Laterality 12/16/2011 2:57 PM 2 2:58 CDT PM CDT Elaine Shultz MD LAB_1 Performing Organization Address [facility] Phon e Number [facility] [place] [phone] [address] documented in this encounter Visit Diagnoses Diagnosis Arthralgia - Primary Pain in joint, site unspecified Abnormal laboratory test Other abnormal clinical finding documented in this encounter
--- OUTSIDE RECORDS SUMMARY | 2022-05-22 13:02 | XMS_ITS | Encounter Summary ---
:1990 Author Organization [facility] Address [address], [place] [address] Care Team Providers Name Role Phone Unavailable Primary Care Provider Unavailable Reason for Visit Reason Comments DEPRESSION follow up Encounter Details Date Type Department Care Team Description 02/25/2010 Office Visit Elaine López Maj or Depressive Practice MD Disorder, Single [address] Episode, Moderate [place], [place] [address] (Primary Dx) [phone] [address] (Wo rk) Social History Tobacco Use Types [...] score today is 8. ASSESSMENT AND PLAN: Hyyztwwq-aqpe-gak female to follow up with major depression, [...]
--- OUTSIDE RECORDS SUMMARY | 2022-05-22 13:02 | XMS_ITS | Encounter Summary ---
:1990 Author Organization [facility] Address [address] [place] [address] Care Team Providers Name Role Phone Jack, Justina Kowalski MD Primary Care Provider Unavailable Reason for Visit Reason Onset Date Comments COUGH 05/19/2009 Encounter Details Date Type Department Care Team Description 05/19/2009 Telephone Careline Unknown, Physician COUGH [address] [place], [place] [address] [place] [address] [phone] (Wo rk) Social History Tobacco Use Types [...] care system is the patient affiliated with? [facility] Situation:pt has fever ,body aches and vomited yesterday. A nurse will call you back within the next hour. If you have not heard from a nurse, please feel free to call us back at [phone] and state that you are waiting for a callback. documented in this encounter Plan of Treatment Not on filedocumented as of this encounter Visit Diagnoses Not on filedocumented in this encounter Care Teams Aeronautical Engineering Officer Relationship Specialty Start Date End Date Justina Santiago MD PCP - General 04/25/07 02/03/10 documented as of this encounter
--- OUTSIDE RECORDS SUMMARY | 2022-05-22 13:02 | XMS_ITS | Encounter Summary ---
:1990 Author Organization [facility] Address [address] [place] [address] Care Team Providers Name Role Phone Justina Santiago MD Primary Care Provider Unavailable Reason for Visit Reason Onset Date Comments Medication Questions 05/22/2009 [facility] Encounter Details Date Type Department Care Team Description 05/22/2009 Telephone [facility] Justina Santiago, Medication Questions [address] Jani Gipson MD (BCP) [place], [place] [address] Social History Tobacco Use Types [...] on filedocumented in this encounter Care Teams Automatic Spinning Lathe Setter Relationship Specialty Start Date End Date Justina Santiago MD PCP - General 04/25/07 02/03/10 documented as of this encounter
--- OUTSIDE RECORDS SUMMARY | 2022-05-22 13:02 | XMS_ITS | Encounter Summary ---
:1990 Author Organization [facility] Address [address] [place] [address] Care Team Providers Name Role Phone Unavailable Primary Care Provider Unavailable Reason for Visit Reason Comments STOMACH PROBLEM noticed she get sick, bloate d after eating large amt of dairy Encounter Details Date Type Department Care Team Description 10/08/2011 Office Visit Paul Lopez MD Dairy product intolerance (Primary Dx); Practice [address] Bloating; [address] [facility] [address] Hypercholesterolemia; SLICK Franc[place] [address] [place] Vaccin for DTP [phone] (Wo rk) Social History Tobacco Use Types Packs/Day Years Used Date Smoking Tobacco: Never Smokeless Tobacco: Never Alcohol Use Standard Drinks/Week Comments No 0 (1 standard drink = 0.6 oz pure alcoho l) Sex Assigned at Date Recorded Not on file documented as of this encounter Last Filed Vital Signs Vital Sign Reading Time Taken Comments Blood Pressure 118/70 10/08/2011 10:08 AM KITCHEN BATH DESIGNER Pulse 80 10/08/2011 10:08 AM KITCHEN BATH DESIGNER Temperature - - Respiratory Rate - - Oxygen Saturation - - Inhaled Oxygen Concentration - - Weight 60.8 kg (134 lb) 10/08/2011 10:08 AM KITCHEN BATH DESIGNER Height - - Body Mass Index 24.71 03/06/2010 4:05 PM CDT documented in this encounter Patient Instructions Patient Paul Solomon MD - 10/10/2011 3:54 PM CST Should you have any questions or concerns, please call my office at [phone], or have a follow-up visit to discuss further. Thank you for letting me serve you. Thank you for visiting [facility]. To contact the clinic directly, please call [phone]. To schedule the appointment(s), please call [phone] or online at [email or web address]. If you need urgent medical help after clinic hours or on weekends, please call: CareLine [phone], or call 911 if any life threatening condition. Paul Taveras MD HEN BATH DESIGNER documented in this encounter Progress Notes Paul [...] intolerance mainly based on the clinical presentation. [facility] has eliminated lab test for this intolerance concern. [facility], he confirmed that our [...] REST PLEASE SEE DICTATED NOTE FOR DETAIL) HEN BATH DESIGNER documented in this encounter Plan of Treatment Not on filedocumented as of this encounter Results BASIC METABOLIC PANEL,FASTING (10/08/2011 11:07 AM KITCHEN BATH DESIGNER) Analysis Performed At Patho logist Time Signature [...] / Volume Laterality 10/08/2011 11:07 10/08/2011 AM KITCHEN BATH DESIGNER 11:08 AM KITCHEN BATH DESIGNER Paul Taveras MD LAB_1 Performing Organization Address City/State/ZIP Code Phon e Number [facility] [phone] [facility] [address] [address] AST (10/08/2011 11:07 AM KITCHEN BATH DESIGNER) athologist Signature AST (SGOT) 22 0 - 55 U/L [facility] Specimen Anatomical Collection Method Collection Time Receive d Time (Source) Location / / Volume Laterality 10/08/2011 11:07 10/08/2011 AM KITCHEN BATH DESIGNER 11:08 AM KITCHEN BATH DESIGNER Paul Taveras MD LAB_1 Performing Organization Address [facility] Phon e Number [facility] [phone] [phone] ALT (SGPT) (10/08/2011 11:07 AM KITCHEN BATH DESIGNER) athologist Signature ALT (SGPT) 15 0 - 69 U/L [facility] Specimen Anatomical Collection Method Collection Time Receive d Time (Source) Location / / Volume Laterality 10/08/2011 11:07 10/08/2011 AM KITCHEN BATH DESIGNER 11:08 AM KITCHEN BATH DESIGNER Paul Taveras MD LAB_1 Performing Organization Address [facility] Phon e Number [facility] [phone] [phone] (ABNORMAL) LIPID PANEL AND DIRECT LDL(IF NEEDED) (10/08/2011 11:07 AM KITCHEN BATH DESIGNER) [facility] Method Time Signature Cholesterol 371 (H) 0 - 199 [facility] mg/dl Triglyceride 168 (H) 0 - 149 [facility] mg/dl HDL 68 >40 mg/dl [facility] LDL, Calc. 269 (H) 0 - 129 [facility] mg/dl Non HDL Chol, 303 mg/dl [facility] Calc Comment: Non HDLC goal is 30 mg/dl above the patient's desired LDLC goal. Hours Fasting 12 hours [facility] Specimen Anatomical Collection Method Collection Time Receive d Time (Source) Location / / Volume Laterality 10/08/2011 11:07 10/08/2011 AM KITCHEN BATH DESIGNER 11:08 AM KITCHEN BATH DESIGNER Paul Taveras MD LAB_1 Performing Organization Address [facility] Phon e Number [facility] [phone] [phone] (ABNORMAL) VITAMIN D 25-HYDROXY, TOTAL (V77.99) (10/08/2011 11:07 AM KITCHEN BATH DESIGNER) [facility] gist Method Time Signature Vitamin 21.3 (L) 30 - 80 [facility] D,25-OH, Tot ng/mL Comment: Deficiency: ??< 20 ng/mL Insufficiency: ??20-29 ng/mL Optimum Level: ??30-80 ng/mL Possible Toxicity: > 80 ng/mL Performed at [facility] Specimen Anatomical Collection Method Collection Time Receive d Time (Source) Location / / Volume Laterality 10/08/2011 11:07 10/08/2011 AM KITCHEN BATH DESIGNER 11:09 AM KITCHEN BATH DESIGNER Paul Taveras MD LAB_1 Performing Organization Address [facility] Phon e Number Particle Code [phone] [phone] (ABNORMAL) HEMOGRAM/PLTS (10/08/2011 11:07 AM KITCHEN BATH DESIGNER) athologist Signature WBC 5.7 4.0 - 11.0 [facility] k/ul RBC 4.75 4.0 - 5.2 [facility] M/ul Hemoglobin 13.1 12.0 - [facility] 16.0 g/dl HCT 40.0 36.0 - [facility] 46.0 % MCV 84.0 80 - 100 [facility] fl MCH 27.6 26 - 34 pg [facility] MCHC 32.8 32 - 36 [facility] g/dl RDW 11.2 (L) 11.5 - [facility] 14.5 % Platelets 326 150 - 450 [facility] k/ul Specimen Anatomical Collection Method Collection Time Receive d Time (Source) Location / / Volume Laterality 10/08/2011 11:07 10/08/2011 AM KITCHEN BATH DESIGNER 11:08 AM KITCHEN BATH DESIGNER Paul Taveras MD LAB_1 Performing Organization Address [facility] Phon e Number Particle Code [phone] [address] documented in this encounter Visit Diagnoses Diagnosis Dairy product intolerance - Primary Other specified intestinal malabsorption Bloating Flatulence, eructation, and gas pain Hypercholesterolemia Pure hypercholesterolemia Need for prophylactic vaccination with c ombined peryjqwybn-qlkqmgi-gagmynaxj (DTP) vaccine documented in this encounter
--- OUTSIDE RECORDS SUMMARY | 2022-05-22 13:02 | XMS_ITS | Encounter Summary ---
:[address] [facility] Address [address], [place] [address] Care Team Providers Name Role Phone Unavailable Primary Care Provider Unavailable Reason for Visit Reason Comments ROUTINE HEALTH MAINTENANCE Encounter Details Date Type Department Care Team Description 12/16/2011 Office Visit [facility] Marysol Vitale general medical examination at a health care facility (Primary Dx); Obstetrics and L, CISCO, MATILDA Screening exa mination for venereal disease; Gynecology Contraceptive surveillance [address] [place], [place] [address] Social History Tobacco Use Types Packs/Day Years [...] findings: external genitalia normal, Bartholin's glands, urethra, Forney's glands negative, vaginal mucosa normal, cervix clear, normal sized uterus, adnexae negative. Rectal Exam:rectal not indicated by age criteria and lack of symptoms ASSESSMENT: Satisfactory annual clinical care manager exam Elevated lipids 2011-has appt for mgt [...] Negative NEG [facility] Comment: Test Performed by Copy Room Technician Mediated Amplification GC (N. gonorrhoeae) Negative [facility] Comment: Test Performed by Copy Room Technician Mediated Amplification Source Cervix [facility] Specimen Anatomical Collection Method Collection Time Receive d Time (Source) Location / / Volume Laterality 12/16/2011 3:33 PM 2 3:34 CDT PM CDT Marysol Vitale APRN, CNP LAB_1 Performing Organization Address City/State/ZIP Code Phon e Number [facility] [phone] [address] documented in this encounter Visit Diagnoses Diagnosis Routine general medical examination at [facility] facility - Primary Routine general medical examination at a [facility] care facility Screening examination for venereal disea se Contraceptive surveillance Contraceptive surveillance, unspecified documented in this encounter
--- OUTSIDE RECORDS SUMMARY | 2022-05-22 13:03 | XMS_ITS | Encounter Summary ---
:1990 Author Organization [facility] Address [address], [place] [address] Care Team Providers Name Role Phone Jack, Justina Kowalski MD Primary Care Provider Unavailable Reason for Visit Reason Comments IMMUNIZATIONS HPV #2 Encounter Details Date Type Department Care Team Description 07/13/2007 Office Visit [facility] Need Vac cination-Viral Department Disease (Primary Dx) [address] [place], [place] [address] Social History Tobacco Use Types [...] documentation. Zo Swan LPN 07/13/2007 8:50 AM DISTRIBUTION CLERK documented in this encounter Plan of Treatment Not on filedocumented as of this encounter Visit Diagnoses Diagnosis Need for prophylactic vaccination and in oculation against other viral diseases(V04.89) - Primary Need for prophylactic vaccination and in oculation against other viral diseases documented in this encounter Care Teams Rn Anesthesiology Relationship Specialty Start Date End Date Justina Santiago MD PCP - General 04/25/07 02/03/10 documented as of this encounter
--- OUTSIDE RECORDS SUMMARY | 2022-05-22 13:03 | XMS_ITS | Encounter Summary ---
:1990 Author Organization [facility] Address [address] [place] [address] Care Team Providers Name Role Phone Justina Santiago MD Primary Care Provider Unavailable Reason for Referral Specialty Diagnoses / Procedures Referred By Contact Refer red To Contact Justina Santiago MD [facility] [address] [place] [address] Referral ID Status Reason Start Date Expiration Date Visits Requ ested Visits Authorized Reason for Visit Reason Comments WELL CHILD EXAM seen a while ago for back an d shoulder pain and it still bugs her from time to time. Encounter Details Date Type Department Care Team Description 05/05/2007 Office Visit [facility] Justina Satniago, Routine Infant or Child Heal th Check (Primary Dx); [address] Jani Gipson MD Vaccin 1 Bacteria NEC; SLICK [place] [address] Need Vaccination-Viral Disea se; [phone] Back Pain Social History Tobacco Use Types [...] 05/05/2007 3:00 PM CD T Growth Chart: [facility] (Girls, 2-20 Years) documented in this encounter Patient Instructions Patient Vnidmaeznwlu35/04/2007 3:01 PM CDT It has been a pleasure attending to Juliette's health maintenance needs today. documented in this encounter Progress Notes Justina Santiago - 05/05/2007 3:01 PM CDT S> Juliette Gaming is a 16 yr female who presents accompanied by her mother for routine manager progressive care. PARENTAL/PATIENT CONCERNS: occasional back and shoulder pain, no known injury SCHOOL Name: [employer] Grade: 10th Success: b's SPORTS/RECREATION/ACTIVITIES Sports: hockey [...] 3:00 PM CDT >> Jessika Astudillo CMA [facility] May 05, 2007 3:[address] Santiago has given the verbal ok to give immunizations to this patient. Please see immunization documentation for additional information. Jessika Astudillo CMA >> Jessika Astudillo CMA [facility] May 05, 2007 3:01 PM Eye exam: L: 20/ 20, R: 20/ 20 Lenses: NO documented in this encounter Plan of Treatment Not on filedocumented as of this encounter Results (ABNORMAL) HEMOGRAM/PLTS (07/13/2007 7:42 AM RAILROAD CAR REPAIRMAN) athologist Signature WBC 5.5 4.0 - 11.0 [facility] k/ul RBC 4.30 4.1 - 5.1 [facility] M/ul Hemoglobin 11.4 (L) 12.0 - [facility] 16.0 g/dl HCT 35.6 (L) 36.0 - [facility] 46.0 % MCV 82.7 78 - 98 fl [facility] MCH 26.5 25 - 35 pg [facility] MCHC 32.1 32 - 36 % [facility] RDW 14.3 11.5 - [facility] 14.5 % Platelets 310 150 - 450 [facility] k/ul Specimen Anatomical Collection Method Collection Time Receive d Time (Source) Location / / Volume Laterality 07/13/2007 7:42 AM 7 7:43 RAILROAD CAR REPAIRMAN AM RAILROAD CAR REPAIRMAN Jutsina Santiago MD LAB_1 Performing Organization Address City/[facility]/ZIP [facility] Phon e Number [facility] [phone] [address] CHOLESTEROL LIPID PANEL FAST >12HR (07/13/2007 7:42 AM RAILROAD CAR REPAIRMAN) athologist Signature Cholesterol 198 <200 mg/dl [facility] Triglyceride 93 <200 mg/dl [facility] HDL 55 >35 mg/dl [facility] LDL, Calc. 124 mg/dl [facility] Hours Fasting 12 hours [facility] Specimen Anatomical Collection Method Collection Time Receive d Time (Source) Location / / Volume Laterality 07/13/2007 7:42 AM 7 7:43 RAILROAD CAR REPAIRMAN AM RAILROAD CAR REPAIRMAN Justina Santiago MD LAB_1 Performing Organization Address [facility] Phon e Number [facility] [phone] [facility] [address] [place] [address] documented in this encounter Visit Diagnoses Diagnosis Routine or child health check - P rimary Need for other specified prophylactic va ccination against single bacterial disease Need for prophylactic vaccination and in oculation against other viral diseases(V04.89) Need for prophylactic vaccination and in oculation against other viral diseases Back pain Backache, unspecified documented in this encounter Care Teams Oven Tender Bagels Relationship Specialty Start Date End Date Justina Santiago MD PCP - General 04/25/07 02/03/10 documented as of this encounter
--- OUTSIDE RECORDS SUMMARY | 2022-05-22 13:03 | XMS_ITS | Encounter Summary ---
:1990 Author Organization [facility] Address [address] [place] [address] Care Team Providers Name Role Phone Unassigned, Provider Primary Care Provider Unavailable Encounter Details Date Type Department Care Team Description 05/10/2006 Correspondence [place] Justina Sanitago, PHYSICAL EXAM/ [facility] [address] [place], [place] [address] Social History Tobacco Use Types [...] on filedocumented in this encounter Care Teams Foster Winder Relationship Specialty Start Date End Date Unassigned, Provider PCP - General 05/05/00 04/24/07 [address] [place] [address] documented as of this encounter
--- OUTSIDE RECORDS SUMMARY | 2022-05-22 13:03 | XMS_ITS | Encounter Summary ---
:1990 Author Organization [facility] Address [address] [place] [address] Care Team Providers Name Role Phone Jack, Justina Kowalski MD Primary Care Provider Unavailable Encounter Details Date Type Department Care Team Description 07/13/2007 Orders Only [employer] Laborato ry Routine or Child [address] [facility] [place] [address] Social History Tobacco Use Types [...] or Re sults for this COUNT-NO DIFF RADIOLOGICAL DEFENSE OFFICER Child Health Check procedur e are in the results section. LIPID PANEL, FAST > Routine 07/13/2007 7:42 AM Routine or Results for this 12 HOUR RADIOLOGICAL DEFENSE OFFICER Child Health Check procedure are in the results section. documented in this encounter Results (ABNORMAL) HEMOGRAM/PLTS (07/13/2007 7:42 AM RADIOLOGICAL DEFENSE OFFICER) P athologist Signature WBC 5.5 4.0 - 11.0 [facility] k/ul RBC 4.30 4.1 - 5.1 [facility] M/ul Hemoglobin 11.4 (L) 12.0 - [facility] 16.0 g/dl HCT 35.6 (L) 36.0 - [facility] 46.0 % MCV 82.7 78 - 98 fl [facility] MCH 26.5 25 - 35 pg [facility] MCHC 32.1 32 - 36 % [facility] RDW 14.3 11.5 - [facility] 14.5 % Platelets 310 150 - 450 [facility] k/ul Specimen Anatomical Collection Method Collection Time Receive d Time (Source) Location / / Volume Laterality 07/13/2007 7:42 AM 7 7:43 RADIOLOGICAL DEFENSE OFFICER AM RADIOLOGICAL DEFENSE OFFICER Justina Santiago MD LAB_1 Performing Organization Address City/[facility] Phon e Number [facility] [phone] [facility] [address] [address] CHOLESTEROL LIPID PANEL FAST >12HR (07/13/2007 7:42 AM RADIOLOGICAL DEFENSE OFFICER) P athologist Signature Cholesterol 198 <200 mg/dl [facility] Triglyceride 93 <200 mg/dl [facility] HDL 55 >35 mg/dl [facility] LDL, Calc. 124 mg/dl [facility] Hours Fasting 12 hours [facility] Specimen Anatomical Collection Method Collection Time Receive d Time (Source) Location / / Volume Laterality 07/13/2007 7:42 AM 7 7:43 RADIOLOGICAL DEFENSE OFFICER AM RADIOLOGICAL DEFENSE OFFICER Justina Santiago MD LAB_1 Performing Organization Address City/[facility] Phon e Number [facility] [phone] [facility] [address] [address] documented in this encounter Visit Diagnoses Diagnosis Routine infant or child health check documented in this encounter Care Teams Family Day Care Provider Relationship Specialty Start Date End Date Justina Santiago MD PCP - General 04/25/07 02/03/10 documented as of this encounter
--- OUTSIDE RECORDS SUMMARY | 2022-05-22 13:03 | XMS_ITS | Clinical Summary ---
:1990 Author Organization [facility] Address [address] [place] [address] Care Team Providers Name Role Phone No Ref-Primary, Physician Primary Care Provider [phone] Allergies No known active allergies Medications [...] Packs/Day Years Used Date Smoking Tobacco: Never Sex Assigned at Date Recorded Not on file Last Filed Vital Signs Vital Sign Reading Time Taken Comments Blood Pressure 162/92 07/19/2019 1:30 PM EQUIPMENT PROCESSOR Pulse 97 07/19/2019 1:30 PM EQUIPMENT PROCESSOR Temperature 36.4 ??C (97.5 ??F) 07/19/2019 8:22 AM EQUIPMENT PROCESSOR Respiratory Rate 18 07/19/2019 12:30 PM EQUIPMENT PROCESSOR Oxygen Saturation 99% 07/19/2019 1:30 PM EQUIPMENT PROCESSOR Inhaled Oxygen Concentration - - Weight 87.2 kg (192 lb 3.2 oz) 07/19/2019 10:31 AM EQUIPMENT PROCESSOR Height 158.8 cm (5' 2.5) 11/24/2009 11:04 AM CDT Body Mass Index 34.59 11/24/2009 11:04 AM CDT Plan of Treatment Health Maintenance Due Date Last Done Comments ADVANCE CARE PLANNING 1990 ANNUAL REVIEW OF HM ORDERS 1991 COVID-19 Vaccine (#1) 01/10/1992 DTAP/TDAP/TD IMMUNIZATION 2002 02/23/1997, 02/12/1993 , (6 - Tdap) 01/10/1992, Additional history exists HIV SCREENING 2006 YEARLY PREVENTIVE VISIT 05/05/2008 05/05/2007, 03/12/2004 HEPATITIS C SCREENING 2009 PAP 2012 PHQ-2 (once per calendar 08/02/2021 year) INFLUENZA VACCINE (#1) 2022 05/26/2018, 04/19/2017, 03/31/2016, Additional history exists HEPATITIS B IMMUNIZATION Completed 11/19/1995, 02/12/1993, 07/02/1992 MENINGITIS IMMUNIZATION Aged Out 05/05/2007 No longe r eligible based on patient 's age to complete this topic IPV IMMUNIZATION Aged Out No longer eligi ble based on patient 's age to complete this topic Pneumococcal Vaccine: Aged Out No longer eligible Pediatrics (0 to 5 Years) based on patient's age and At-Risk Patients (6 to to co mplete this topic 64 Years) Insurance Payer Benefit Plan / Subscriber ID Effective Dates Phone Addre ss Type Group [place] [id number] 2018-[place]elo [phone] [address] [address] Indemnity t 0 [place] [address] Care Teams Graduate Assistant Athletic Trainer Relationship Specialty Start Date End Date No Ref-Primary, Physician PCP - General 07/21/19
--- OUTSIDE RECORDS SUMMARY | 2022-05-22 13:03 | XMS_ITS | Encounter Summary ---
:1990 Author Organization [place] Address [address] [place] [address] Care Team Providers Name Role Phone Lazarus Galeas MD Primary Care Provider + [phone] Reason for Visit Reason Comments Fall Arm Injury Encounter Details Date Type Department Care Team Description 07/19/2019 Emergency [facility] Rebel Brantley MD Closed fracture of left elbow, initial e ncounter; [facility] Emergency Dep t EMERGENCY PHYSICIANS Closed dislocation of left e lbow, initial encounter; [address] [place], initial encounter; [place], [place] [address] [facility] [address] Rangel d displaced fracture of head of left radius, initial encounter; [id number] [facility] 100 Displaced fracture of lateral condyle of left humerus, initial encounter for closed fracture [phone] [place], [place] [phone] (Wo rk) Social History Tobacco Use Types Packs/Day Years Used Date Smoking Tobacco: Never Sex Assigned at Date Recorded Not on file documented as of this encounter Last Filed Vital Signs Vital Sign Reading Time Taken Comments Blood Pressure 162/92 07/19/2019 1:30 PM ASSEMBLER RUBBER FOOTWEAR Pulse 97 07/19/2019 1:30 PM ASSEMBLER RUBBER FOOTWEAR Temperature 36.4 ??C (97.5 ??F) 07/19/2019 8:22 AM ASSEMBLER RUBBER FOOTWEAR Respiratory Rate 18 07/19/2019 12:30 PM ASSEMBLER RUBBER FOOTWEAR Oxygen Saturation 99% 07/19/2019 1:30 PM ASSEMBLER RUBBER FOOTWEAR Inhaled Oxygen Concentration - - Weight 87.2 kg (192 lb 3.2 oz) 07/19/2019 10:31 AM ASSEMBLER RUBBER FOOTWEAR Height - - Body Mass Index 34.59 [...] local pharmacy or law enforcement facility. The [place] Pollution Control Agency has additional information on medication disposal: http s://www.educational diagnostician.formerly [facility].nd.us/living-green/nxsyyfge-xppdhvyr-pjfolmseiyp. Many prescription pain medications contain Tylenol?? (acetaminophen), including Vicodin??, Tylenol #3??, Loretto??, Lortab??, and Percocet??. You should not take [...] if there is anything that worries you. MBLER RUBBER FOOTWEAR AttachmentsThe following attachments cannot be sent through Care Everywhere. Elbow Dislocation (Scottish)Elbow Fracture (Scottish)documented in this encounter Medications at Time of [...] Pt ambulated to restroom. Steady on feet. Ellen Amado - 07/19/2019 10:50 AM CST Bed: ED32 Expected date: 07/19/19 Expected time: Means of arrival: Comments: RM19 MBLER RUBBER FOOTWEAR Trell Lowe RN - 07/19/2019 8:21 AM CST Pt arrives with L arm pain after fall this morning. Pt slipped on ice, fell forward down 3 steps andlanded on L arm. Pain in forearm and elbow, no obvious deformity. Pt placed in sling in triage for comfort. CMS intact. MBLER RUBBER FOOTWEAR Rebel Brantley MD - 07/19/2019 8:07 AM [...] margin minimally displaced fracture, as per radiology. [facility] -Fracture Date/Time: 07/19/2019 10:14 AM Performed [...] the procedure a time out was called [place] Protocol: the Joint Commission [place] Protocol was followed Preparation: Patient was prepped [...] 0944: I consulted with HECTOR Bone from [facility] orthopedics, regarding the patient's history and presentation [...] as well. I discussed the case with [facility] orthopedic Jeana Emery PA-C on behalfof [...] and the provider's statements to me. 07/19/2019 [facility] Rebel Brantley MD 07/19/195 MBLER RUBBER FOOTWEAR documented in this encounter Plan of Treatment Not on filedocumented as of this encounter Procedures Procedure Name Priority Date/Time Associated Comments Diagnosis CT ELBOW LEFT W/O STAT 07/19/2019 1:32 PM Resu lts for this CONTRAST ASSEMBLER RUBBER FOOTWEAR procedure are i n the results section. XR SURGERY JANIS STAT 07/19/2019 11:47 AM Resul ts for this FLUORO LESS THAN 5 ASSEMBLER RUBBER FOOTWEAR procedure are in MIN W STILLS the results section. XR ELBOW LEFT 2 STAT 07/19/2019 9:34 AM Result s for this VIEWS ASSEMBLER RUBBER FOOTWEAR procedure are i n the results section. ED ORTHOPEDIC INJURY Routine 07/19/2019 8:07 AM R esults for this TREATMENT - FRACTURE ASSEMBLER RUBBER FOOTWEAR procedu re are in the results section. documented in this encounter Results CT Elbow Left w/o Contrast (07/19/2019 1:32 PM ASSEMBLER RUBBER FOOTWEAR) Anatomical Region Laterality Modality Left Elbow, SUBRAD CT MSK, UMP CT MSK, RAD CT Computed Tomography Specimen (Source) Anatomical Location Collection Method / Collectio n Time Received Time / Laterality Volume Impressions 07/19/2019 2:54 PM ASSEMBLER RUBBER FOOTWEAR IMPRESSION: Reduced left elbow dislocation with the following periarticular fractures: 1. Olecranon base nondisplaced fracture. 2. Coronoid process fracture. 3. Lateral epicondylar base fracture, mi nimally displaced, likely including the lateral collateral ligamen t attachment. Radiocapitellar alignment is grossly normal. 4. Radial head lateral margin minimally displaced fracture. BLAYNE SANCHEZ MD Narrative 07/19/2019 2:[address] RUBBER FOOTWEAR [address] ELBOW LEFT WITHOUT CONTRAST July 19, [...] Min Fluoro w Stills (07/19/2019 11:47 AM ASSEMBLER RUBBER FOOTWEAR) Anatomical Region Laterality Modality Abdomen/Pelvis Radio Fluoroscopy Specimen (Source) Anatomical Location Collection Method / Collectio n Time Received Time / Laterality Volume Impressions 07/19/2019 12:43 PM ASSEMBLER RUBBER FOOTWEAR IMPRESSION: Intraoperative fluoroscopic spot image of the elbow demonstrating multiple fractures. Refer to operative report for additional details. MEGHANN OTOOLE MD Narrative 07/19/2019 12:43 PM ASSEMBLER RUBBER FOOTWEAR SURGERY C-ARM FLUORO LESS THAN 5 MIN [...] XR, 2 views, left (07/19/2019 9:34 AM ASSEMBLER RUBBER FOOTWEAR) Anatomical Region Laterality Modality Elbow, Left Elbow Left Computed Radiography Specimen (Source) Anatomical Location Collection Method / Collectio n Time Received Time / Laterality Volume Impressions 07/19/2019 12:04 PM ASSEMBLER RUBBER FOOTWEAR IMPRESSION: There is a transverse fracture of [...] effusion. No other abnormali ty is noted. IZON JUAN MD Narrative 07/19/2019 12:04 PM ASSEMBLER RUBBER FOOTWEAR LEFT ELBOW TWO VIEWS ??07/19/2019 9:34 AM [...] IMAGING ORDER [facility] -Fracture (07/19/2019 8:07 AM ASSEMBLER RUBBER FOOTWEAR) Narrative Rebel Brantley MD - 07/19/2019 8:07 AM CS T Rebel Brantley MD ? 07/19/2019 ??9:36 PM [facility] -Fracture Date/Time: 07/19/2019 10:14 AM Performed [...] dure a time out was called ?? [place] Protocol: the Joint Commission [place] Protocol was followed ?? Preparation: Patient was [...] chloride BOLUS New Bag 07/19/2019 1:00 PM ASSEMBLER RUBBER FOOTWEAR 1,000 mLs 1000 mL/hr Intravenous, 1,000 mL, ONCE, at 1,000 mL/hr, Administer over 1 Hours, On Wed07/19/19 at 1015, For 1 dose ibuprofen (ADVIL/MOTRIN) tablet 800 mg Given 07/19/2019 8:56 AM ASSEMBLER RUBBER FOOTWEAR 800 mg 800 mg, Oral, ONCE, On [...] 2 MG/ML injection Given 07/19/2019 11:24 AM ASSEMBLER RUBBER FOOTWEAR 4 mg Starting on Wed07/19/19 at 1119, For 1 dose, MS. NAKUL Aguilar : cabinet override Irritant. For ordered IV doses 0.1-4 mg, give IV Push undiluted over 2-5 minutes. oxyCODONE-acetaminophen (PERCOCET) 5-325 MG Given 07/02 1:40 PM ASSEMBLER RUBBER FOOTWEAR 1 tablet per tablet 1 tablet 1 tablet, Oral, ONCE, On Wed07/19/19 at 1335, For 1 dose, Maximum acetaminophen dose from all sources= 75 mg/kg/day not to exceed 4 grams propofol (DIPRIVAN) 200 MG/20ML injectio n Given 07/19/2019 11:34 AM ASSEMBLER RUBBER FOOTWEAR 90 mg Starting on Wed07/19/19 at 1051, For 1 dose, Kroc, MS. MOTA : cabinet override propofol (DIPRIVAN) injection 10 mg/mL v ial Given 07/19/2019 11:37 AM ASSEMBLER RUBBER FOOTWEAR 30 mg 9 mg (rounded from 8.72 [...] Recently Administered Medications Times are shown in ASSEMBLER RUBBER FOOTWEAR. Scheduled Medication Order 07/17/2019 07/18/2019 07/19/2019 0.9% sodium chloride BOLUS (COMPLETED) 1300 (New Bag - Provider: Joselin Love RN)1340 (Stopped - Provider: Joselin Love, MARIIA) Intravenous, 1,000 mL, ONCE, at 1,000 mL [...] (COMPLETED) 1124 (Given - Provider: Lucie Crystal, RN) Starting Wed07/19/19 at 1119, For 1 dos e, MS. NAKUL Aguilar : cabinet override Irritant. For ordered IV doses 0.1-4 mg, give IV Push undiluted over 2-5 minutes. propofol (DIPRIVAN) 200 MG/20ML injection (COMPLETED) 1134 (Given - Provider: Lucie Crystal RN) Starting Wed07/19/19 at 1051, For 1 dose, MS. NAKUL Aguilar : cabin et override documented in this encounter Care Teams Medical Accounting Clerk Relationship Specialty Start Date End Date Lazarus Galeas MD PCP - General 10/07/08 07/19/19 [address] [facility] [place] [address] documented as of this encounter
--- OUTSIDE RECORDS SUMMARY | 2022-05-22 13:03 | XMS_ITS | Encounter Summary ---
:1990 [facility] Address [address] [place] [address] Care Team Providers Name Role Phone Justina Santiago MD Primary Care Provider Unavailable Reason for Visit Reason Onset Date Comments LAB TESTS, NOS 07/08/2007 Encounter Details Date Type Department Care Team Description 07/08/2007 Telephone [facility] Justina Santiago MD [place] [address] [employer] [place], [place] [address] Social History Tobacco Use Types [...] this Telephone Encounter to the following pool:cn. SUGAR HANDLER documented in this encounter Plan of Treatment Not on filedocumented as of this encounter Visit Diagnoses Not on filedocumented in this encounter Care Teams Transplant Case Manager Relationship Specialty Start Date End Date Justina Santiago MD PCP - General 04/25/07 02/03/10 documented as of this encounter
--- OUTSIDE RECORDS SUMMARY | 2022-05-22 13:03 | XMS_ITS | Encounter Summary ---
:1990 Author Organization [facility] Address [address] [place] [address] Care Team Providers Name Role Phone Unassigned, Provider Primary Care Provider Unavailable Reason for Visit Reason Comments WELL CHILD EXAM Encounter Details Date Type Department Care Team Description 03/12/2004 Office Visit [facility] Pediatri Justina Rodriguez, ROUTINE CHILD HEALTH EXAM (P rimary Dx); [address] Jani Gipson MD VACCINE [id number] ; [place]io [place] [address] VACCINE FOR TETANUS + DIPHTH ERIA [phone] Social History Tobacco Use Types Packs/Day Years [...] 03/12/2004 9:24 AM CD T Growth Chart: [facility] (Girls, 2-20 Years) documented in this encounter Patient Instructions Patient Yuufftsppyct31/11/2004 9:00 AM CDT It has been a pleasure attending to your child's health maintenance needs today. 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 [...] Left 20/20-1 HEARING:Subective assessment. No problems found Rick Breast Stage 3: breast mound enlarged; increased palpable glandular tissue A> Healthy Adolescent family history of high cholesterol and early ND P> Per orders. will check cholesterol and [...] Justina Santiago MD LAB_1 Performing Organization Address City/[facility]/ZIP [facility] Phon e Number [facility] [phone] [facility] [address] [place] [address] (ABNORMAL) CHOLESTEROL, TOTAL AND HDL (03/12/2004 10:10 AM CDT) athologist Signature Cholesterol 222 (H) <200 mg/dl [facility] HDL 51 >35 mg/dl [facility] Specimen Anatomical Collection Method Collection Time Receive d Time (Source) Location / / Volume Laterality 03/12/2004 10:10 03/12/2004 AM CDT 10:11 AM CDT Justina Santiago MD LAB_1 Performing Organization Address [facility] Phon e Number [facility] [phone] [address] documented in this encounter Visit Diagnoses Diagnosis Routine or child health check - P rimary Need for prophylactic vaccination with m gotzxc-fnbqa-ykyweua (MMR) vaccine Need for Td vaccine Need for prophylactic vaccination with t etanus-diphtheria (Td) documented in this encounter Care Teams Color Print Inspector Relationship Specialty Start Date End Date Unassigned, Provider PCP - General 05/05/00 04/24/[address] [place] [address] documented as of this encounter
--- OUTSIDE RECORDS SUMMARY | 2022-05-22 13:03 | XMS_ITS | Encounter Summary ---
:1990 Author Organization [facility] Address [address] [place] [address] Care Team Providers Name Role Phone Unassigned, Provider Primary Care Provider Unavailable Reason for Visit Reason Onset Date Comments QUESTIONS, GENERAL 07/12/2006 Encounter Details Date Type Department Care Team Description 07/12/2006 Telephone Rogelio Lloyd Family Unknown, Phys ician QUESTIONS, software programmer [address] [address] [employer] [facility] [place] [address] [phone] (Wo rk) Social History Tobacco Use Types [...] Sat.07/10/06. Not seen by anyone except by marine animal trainer of hockey team. No loss of [...] if new symptoms develop. Chrissie Perez RN TOR CUSTODIAN Pebbles Ashton - 07/12/2006 3:50 PM CST Daughter was injured in a hockey game,Sat 07-10-06; she had grade 1 concussion. Has questions ?? TOR CUSTODIAN documented in this encounter Plan of Treatment Not on filedocumented as of this encounter Visit Diagnoses Not on filedocumented in this encounter Care Teams Security Operations Analyst Relationship Specialty Start Date End Date Unassigned, Provider PCP - General 05/05/00 04/24/[address] [place] [address] documented as of this encounter
--- OUTSIDE RECORDS SUMMARY | 2022-05-22 13:03 | XMS_ITS | Encounter Summary ---
:1990 Author Organization [facility] Address [address] [facility] [place] [address] Care Team Providers Name Role Phone Unassigned, Provider Primary Care Provider Unavailable Reason for Visit Reason Comments Follow-up, NOS Concussion on 07/10/06 at [employer] game, still BENDER, sensitive to sound and light Encounter Details Date Type Department Care Team Description 07/16/2006 Office Visit Rogelio Lloyd Family Alex Carrillo, Head Injury (Primary Practice MD Dx) [address] [place], [place] [address] [place], [place] [phone] [address] Social History Tobacco Use Types Packs/Day Years Used Date Smoking Tobacco: Never Alcohol Use Standard Drinks/Week Comments Not Asked 0 (1 standard drink = 0.6 oz pure alcoho l) Sex Assigned at Date Recorded Not on file documented as of this encounter Last Filed Vital Signs Vital Sign Reading Time Taken Comments Blood Pressure 96/60 07/16/2006 9:20 AM LINE RIDER Pulse - - Temperature - - Respiratory Rate - - Oxygen Saturation - - Inhaled Oxygen Concentration - - Weight 46.3 kg (102 lb) 07/16/2006 9:20 AM LINE RIDER Height - - Body Mass Index - [...] 400 mg po QID. Alex Carrillo MD RIDER documented in this encounter Plan of Treatment Not on filedocumented as of this encounter Visit Diagnoses Diagnosis Head injury - Primary Head injury, unspecified documented in this encounter Care Teams Wellness Assistant Relationship Specialty Start Date End Date Unassigned, Provider PCP - General 05/05/00 04/24/[address] [place] [address] documented as of this encounter
--- OUTSIDE RECORDS SUMMARY | 2022-05-22 13:03 | XMS_ITS | Encounter Summary ---
:1990 Author Organization [facility] Address [address], [place] [address] Care Team Providers Name Role Phone Unassigned, Provider Primary Care Provider Unavailable Reason for Visit Reason Comments CONSULT allergy Encounter Details Date Type Department Care Team Description 12/23/2004 Office Visit [facility] DEYANIRA Willis RHINITIS; [address] Michael Gilmore MD COUGH [place], [place] [address] Social History Tobacco Use Types [...] 12/23/2004 2:19 PM CD T Growth Chart: [facility] (Girls, 2-20 Years) documented in this encounter Progress Notes 12/23/2004 2:30 PM CDT AUTHOR: MANDO WILLIS ALLERGY EVALUATION (NEW PATIENT) SUBJECTIVE: This 14 y/o, w/f, who was born in and has lived in [place], was apparently self- referred to our allergy [...] today for Allergy Department visit. Phone #: [phone]. Spirometry/Peakflow done-NO. No current outpatient prescriptions on file. Shirley uTrner LPN, 2:19 PM, 12/23/2004 documented in this encounter Plan of Treatment Not on filedocumented as of this encounter Visit Diagnoses Diagnosis Chronic rhinitis Cough documented in this encounter Care Teams Car Wiper Relationship Specialty Start Date End Date Unassigned, Provider PCP - General 05/05/00 04/24/[address] [place] [address] documented as of this encounter
--- OUTSIDE RECORDS SUMMARY | 2022-05-22 13:03 | XMS_ITS | Encounter Summary ---
:1990 Author Organization [facility] Address [address] [place] [address] Care Team Providers Name Role Phone Unassigned, [...] on filedocumented in this encounter Care Teams Forepart Rounder Relationship Specialty Start Date End Date Unassigned, Provider PCP - General 05/05/00 04/24/[address] [place] [address] documented as of this encounter
--- OUTSIDE RECORDS SUMMARY | 2022-05-22 13:03 | XMS_ITS | Encounter Summary ---
:1990 Author Organization [facility] Address [address] [place] [address] Care Team Providers Name Role Phone Lazarus Galeas MD Primary Care Provider Encounter Details Date Type Department Care Team Description 07/19/2019 Travel Social History Tobacco Use Types Packs/Day Years Used Date Smoking Tobacco: Never Sex Assigned at Date Recorded Not on file documented as of this encounter Plan of Treatment Not on filedocumented as of this encounter Visit Diagnoses Not on filedocumented in this encounter Care Teams Division Manager Relationship Specialty Start Date End Date Lazarus Galeas MD PCP - General 10/07/08 07/19/[address] [facility] [address] documented as of this encounter
--- OUTSIDE RECORDS SUMMARY | 2022-05-22 13:03 | XMS_ITS | Encounter Summary ---
:1991 Author Organization [facility] Address [address] [place] [address] Care Team Providers Name Role Phone Lazarus Galeas MD Primary Care Provider + [phone] Reason for Visit Reason Comments Urgent Care Head Injury Patient reports got knocked on ice playing hockey yesterday, this am neck hurts worse than yesterday, head hurts the same. Denies loss of consciousness, denies numbne ss/tingling of extremities. Encounter Details Date Type Department Care Team Description 11/24/2009 Office Visit [facility] GeraldFox, Head C ontusion (Primary Dx); Urgent Care Tana AKINS Neck Pain [address] [place] [address] Social History Tobacco Use Types Packs/Day [...] Cervicalgia documented in this encounter Care Teams Analytical Lead Relationship Specialty Start Date End Date Lazarus Galeas MD PCP - General 10/07/08 07/19/19 [address] [facility] [place] [address] documented as of this encounter
--- OUTSIDE RECORDS SUMMARY | 2022-05-22 13:03 | XMS_ITS | Encounter Summary ---
:1991 Author Organization [facility] Address [address] [place] [address] Care Team Providers Name Role Phone Unassigned, [...] (Primary Dx); Practice MD ACUTE PHARYNGITIS(SORE THROAT); [address] [place] [address] [place], [place] [phone] [address] Social History Tobacco Use Types Packs/Day Years [...] 36.1 ??C (97 ??F) 10/31/2004 1:35 PM INCOME TAX CONSULTANT Respiratory Rate - - Oxygen Saturation - - Inhaled Oxygen Concentration - - Weight 40.8 kg (90 lb) 10/31/2004 1:35 PM INCOME TAX CONSULTANT Height - - Body Mass Index - - documented in this encounter Progress Notes 10/31/2004 1:20 PM INCOME TAX CONSULTANT SUBJECTIVE: Juliette Gaming is a 14 yr [...] PM Acute Res ults for this SCREEN INCOME TAX CONSULTANT Pharyngitis(Sore procedure a re in Throat) the results section. documented in this encounter Results STREP GRP A, RAPID SCREEN (10/31/2004 1:38 PM INCOME TAX CONSULTANT) [facility] Method Time Signature Patient Home None [facility] Phone # Patient Work None [facility] # Grp A Rapid Negative NEG [facility] Screen Grp A Culture Negative NEG [facility] Final Specimen Anatomical Collection Method Collection Time Receive d Time (Source) Location / / Volume Laterality 10/31/2004 1:38 PM 5 1:39 INCOME TAX CONSULTANT PM INCOME TAX CONSULTANT Lyle Orozco MD LAB_1 Performing Organization Address City/State/ZIP Code Phon e Number [facility] [phone] [facility] [address] [phone] documented in this encounter Visit Diagnoses Diagnosis Acute upper respiratory infections of un specified site - Primary Acute pharyngitis Backache, unspecified documented in this encounter Care Teams Department Supervisor Relationship Specialty Start Date End Date Unassigned, Provider PCP - General 05/05/00 04/24/07 [address] [place] [address] documented as of this encounter
--- OUTSIDE RECORDS SUMMARY | 2022-05-22 13:03 | XMS_ITS | Encounter Summary ---
:1990 [facility] Address [address] [address] Care Team Providers Name Role Phone Unassigned, Provider Primary Care Provider Unavailable Reason for Visit Reason Comments BACK PAIN, LOW no known injury. started chaka ting on wednesday. Encounter Details Date Type Department Care Team Description 02/25/2007 Office Visit [facility] Pediatri cs Justina Santiago, Back Pain (Primary Dx) [address] [place] [address] Social History Tobacco Use Types [...] 02/25/2007 2:20 PM CD T Growth Chart: [facility] (Girls, 2-20 Years) documented in [...] unspecified documented in this encounter Care Teams Service Girl Relationship Specialty Start Date End Date Unassigned, Provider PCP - General 05/05/00 04/24/[address] [place] [address] documented as of this encounter
--- OUTSIDE RECORDS SUMMARY | 2022-05-22 13:03 | XMS_ITS | Encounter Summary ---
:1990 Author Organization [facility] Address [address] [place] [address] Care Team Providers Name Role Phone Unassigned, Provider Primary Care Provider Unavailable Encounter Details Date Type Department Care Team Description 03/12/2004 Correspondence None Unknown, Physici an IMMUNIZATIONS [address] [place], [place] [address] (Wo rk) Social History Tobacco Use Types Packs/Day Years Used Date Smoking Tobacco: Never Assessed Sex Assigned at Date Recorded Not on file documented as of this encounter Progress Notes Unknown, Physician - 03/12/2004 12:00 AM CDT documented in this encounter Plan of Treatment Not on filedocumented as of this encounter Visit Diagnoses Not on filedocumented in this encounter Care Teams Needle Punch Machine Operator Relationship Specialty Start Date End Date Unassigned, Provider PCP - General 05/05/00 04/24/07 [address] [place] [address] documented as of this encounter
--- OUTSIDE RECORDS SUMMARY | 2022-05-22 13:03 | XMS_ITS | Encounter Summary ---
:1990 Author Organization [facility] Address [address] [place] [address] Care Team Providers Name Role Phone Unassigned, Provider Primary Care Provider Unavailable Reason for Visit Reason Comments FEVER ABDOMINAL PAIN Encounter Details Date Type Department Care Team Description 09/17/2000 Telephone Careline Ayleen Barker, FEVER; ABDOMINAL PAIN [address] Leanne Pérez, RN [place], [place] [address] [address] [facility] [phone] [place] [address] Social History Tobacco Use Types Packs/Day Years Used Date Smoking Tobacco: Never Assessed Sex Assigned at Date Recorded Not on file documented as of this encounter Nursing Notes 09/17/2000 11:59 PM METAL PLATER >> LEANNE BARKER WedSep 17, 2000 5:23 PM >> COMPLETED ON WedSep 17, 2000 5:42 PM >> CALL RECEIVED. Contact: merna maya [phone] TRIAGE REFERENCE: FEVER - PEDS CNG (c) [...] frandy berrios - NO SUB DOC, as physician underwriter advised pt eval tonite, and mom wou ld like [facility] eval tonite 5:[address] berrios cb and VO = pt eval at [facility] tonite 5:41 PM cb to mom and informed of VO per dr. berrios. mom wants to bring pt to [facility]. note faxed to same. documented in this encounter Plan of Treatment Not on filedocumented as of this encounter Visit Diagnoses Not on filedocumented in this encounter Care Teams Entertainment Production Professional Relationship Specialty Start Date End Date Unassigned, Provider PCP - General 05/05/00 04/24/[address] [place] [address] documented as of this encounter
--- OUTSIDE RECORDS SUMMARY | 2022-05-22 13:03 | XMS_ITS | Encounter Summary ---
:1991 Author Organization [facility] Address [address] [place] [address] Care Team Providers Name Role Phone Unassigned, Provider Primary Care Provider Unavailable Reason for Visit Reason Onset Date Comments INJURY, NOS 07/14/2006 head Encounter Details Date Type Department Care Team Description 07/14/2006 Telephone [facility] Jack, Justina Kowalski MD IN [facility], NOS (head) Practice [address] [place], [place] [address] Social History Tobacco Use Types [...] ice for short time. Patient transferred to temporary receptionist to set up appt. GATION SUPERVISOR Jessika Astudillo - 07/15/2006 2:31 PM CST Left message to call back. GATION SUPERVISOR Jessika Astudillo - 07/14/2006 5:01 PM CST Left message to call back. GATION SUPERVISOR Justina Santiago - 07/14/2006 4:54 PM CST She does not need to come in if she is free of symptoms. GATION SUPERVISOR Eliza Malik - 07/14/2006 9:07 AM CST Recieved a mild concussion on Sat. In hockey. Does she need to come in. Eliza Malik GATION SUPERVISOR documented in this encounter Plan of Treatment Not on filedocumented as of this encounter Visit Diagnoses Not on filedocumented in this encounter Care Teams Repairer Screen Crusher Relationship Specialty Start Date End Date Unassigned, Provider PCP - General 05/05/00 04/24/[address] [place] [address] documented as of this encounter
--- OUTSIDE RECORDS SUMMARY | 2022-05-22 13:03 | XMS_ITS | Encounter Summary ---
:1990 Author Organization [facility] Address [address] [place] [address] Care Team Providers Name Role Phone Unavailable Primary Care Provider Unavailable Reason for Visit Reason Comments Dysphagia SORE THROAT,NURSE Encounter Details Date Type Department Care Team Description 06/16/1998 Telephone Careline Kristal Fuentes Dysphagia; SORE [address], INSPECTOR BULLET SLUGS, JUDICIAL ASSISTANT THROAT,NURSE [place], [place] [address] [phone] [place] [address] Social History Tobacco Use Types Packs/Day Years Used Date Smoking Tobacco: Never Assessed Sex Assigned at Date Recorded Not on file documented as of this encounter Nursing Notes 06/16/1998 11:59 PM SKEIN INSPECTOR >> KRISTAL FUENTES 06/16/1998 10:14 am 10:14 AM okay to go to [facility] per Dr. Suarez, mom told >> CALL RECEIVED. Contact: [phone] mom mac >> KRISTAL FUENTES 06/16/1998 10:06 [...]
--- OUTSIDE RECORDS SUMMARY | 2022-05-22 13:03 | XMS_ITS | Encounter Summary ---
:1990 Author Organization [facility] Address [address] [place] [address] Care Team Providers Name Role Phone No Ref-Primary, Physician Primary Care Provider [phone] Reason for Referral Diagnostic Imaging CT Scan (Routine) - Closed Specialty Diagnoses / Procedures Referred By Contact Refer red To Contact Radiology. Diagnoses Fracture of left olecranon process Sandy Vanegas MD Ct Scan Procedures CT Elbow Left w/o Contrast [facility] [address] [facility] [address] [place] [phone] Fax: Referral ID Status Reason Start Date Expiration Date Visits Requ ested Visits Authorized [id number] Closed 07/20/2019 07/19/2020 1 1 RIBUTOR ADVERTISING MATERIAL Reason for Visit Diagnostic Imaging CT Scan (Routine) - Closed Specialty Diagnoses / Procedures Referred By Contact Refer red To Contact Radiology. Diagnoses Fracture of left olecranon process Sandy Vanegas MD Ct Scan Procedures CT Elbow Left w/o Contrast [facility] [address] [facility] [address] [place] [phone] Fax: Referral ID Status Reason Start Date Expiration Date Visits Requ ested Visits Authorized [id number] Closed 07/20/2019 07/19/2020 1 1 Encounter Details Date Type Department Care Team Description 07/21/2019 Hospital Encounter [facility] Sandy Vanegas of left [facility] MD Lilia olecranon process [address] [place], [place] [facility] [address] [phone] [facility] [address] [place] [address] Social History Tobacco Use Types Packs/Day Years [...] Fracture of left Results for this CONTRAST DISTRIBUTOR ADVERTISING MATERIAL olecranon process procedure are in the results section. documented in this encounter Results CT Elbow Left w/o Contrast (07/21/2019 8:12 AM DISTRIBUTOR ADVERTISING MATERIAL) Anatomical Region Laterality Modality Left Elbow, SUBRAD CT MSK, UMP CT MSK, RAD CT Computed Tomography Specimen (Source) Anatomical Location Collection Method / Collectio n Time Received Time / Laterality Volume Impressions 07/21/2019 12:01 PM DISTRIBUTOR ADVERTISING MATERIAL IMPRESSION: Redemonstrated are the transverse fracture at the base of the olecranon process which shows no sig nificant displacement, oblique fracture lateral epicondyle, mildly disp laced coronoid fracture, minimally displaced fracture lateral mar gin radial head. No significant change. 3-D reconstructions are provided. ALEXANDRU OATES MD Narrative 07/21/2019 12:[address] ELBOW LEFT WITHOUT CONTRAST 07/21/2019 8:12 [...] ulna documented in this encounter Care Teams Unloading Checker Relationship Specialty Start Date End Date No Ref-Primary, Physician PCP - General 07/21/19 documented as of this encounter
--- OUTSIDE RECORDS SUMMARY | 2022-05-22 13:03 | XMS_ITS | Encounter Summary ---
:1990 Author Organization [facility] Address [address] [place] [address] Care Team Providers Name Role Phone Unassigned, Provider Primary Care Provider Unavailable Encounter Details Date Type Department Care Team Description 07/16/2006 Correspondence None Unknown, Physici an CONSENT AND RELEASE [address] [place] [address] (Wo rk) Social History Tobacco Use Types Packs/Day Years Used Date Smoking Tobacco: Never Alcohol Use Standard Drinks/Week Comments Not Asked 0 (1 standard drink = 0.6 oz pure alcoho l) Sex Assigned at Date Recorded Not on file documented as of this encounter Progress Notes Unknown, Physician - 07/16/2006 12:00 AM SECURITY SALES MANAGER documented in this encounter Plan of Treatment Not on filedocumented as of this encounter Visit Diagnoses Not on filedocumented in this encounter Care Teams Informatica Relationship Specialty Start Date End Date Unassigned, Provider PCP - General 05/05/00 04/24/07 [address] [place] [address] documented as of this encounter
--- OUTSIDE RECORDS SUMMARY | 2022-05-22 13:03 | XMS_ITS | Encounter Summary ---
:1991 Author Organization [facility] Address [address] [place] [address] Care Team Providers Name Role Phone No Ref-Primary, Physician Primary Care Provider [phone] Encounter Details Date Type Department Care Team Description 07/21/2019 Travel Social History Tobacco Use Types Packs/Day Years Used Date Smoking Tobacco: Never Sex Assigned at Date Recorded Not on file documented as of this encounter Plan of Treatment Not on filedocumented as of this encounter Visit Diagnoses Not on filedocumented in this encounter Care Teams Supervising Appraiser Relationship Specialty Start Date End Date No Ref-Primary, Physician PCP - General 07/21/19 documented as of this encounter
== END 2022-05-22 12:56 | disposition home or self-care (01) ==
LOC: US 12:56
PROVIDERS: PCP Physician Assistant Medical; Visit Provider Physician Assistant
DX: Z34.92 Encounter for supervision of normal pregnancy, unspecified, second trimester (principal); Z3A.21 21 weeks gestation of pregnancy
CPT/HCPCS: 76805

== ENCOUNTER 2022-07-10 14:58 | Outpatient (CLI) | payer OTHER, SELFPAY ==
--- OUTSIDE RECORDS SUMMARY | 2022-07-10 15:04 | XMS_ITS | Encounter Summary ---
:1990 Author Organization [facility] Address [address] [place] [address] Care Team Providers Name Role Phone Unavailable Primary Care Provider Unavailable Reason for Referral Dental (Routine) - Closed Specialty Diagnoses / Procedures Referred By Contact Refer red To Contact Diagnoses S/P skin biopsy Madison Kirk DDS [address] [place] [address] Referral ID Status Reason Start Date Expiration Date Visits Requ ested Visits Authorized [id number] Closed 06/04/2017 09/03/2018 1 1 Scheduling Instructions Your provider has recommended an appoint ment with an oral surgeon within [facility]. You may c all one of the clinics below to schedule an appointment. If you prefer, a travel registered nurse pacu will contact you within the next 3 business days to assist you in setting up this ap pointment. [place] - [phone] [facility] [phone] [place] [phone] Reason for Visit Reason Comments Dental Hygiene hot and cold sensitivity lr premolar area Encounter Details Date Type Department Care Team Description 06/04/2017 Office Visit [facility] Myranda Frankel ental Hygiene (hot Dentistry I, RDH and cold sensitivity [address] [facility] [address] lr premolar area) [place] [address] [phone] Social History Tobacco Use Types Packs/Day Years [...] encounter Patient Instructions Patient InstructionsMyranda Frankel I, [facility] - 06/04/2017 7:40 AM CDT [...] Daily rinsing of fluoride product purchased at [facility] pharmacy [facility]rother retail store Rinse with fluoride [...] documented in this encounter Plan of Treatment Upcoming Encounters Date Type Specialty Care Team Description 08/10/2022 Appointment Gastroenterology Ashly Fortune, BUTTON CUTTING MACHINE OPERATOR, DECATOR OPERATOR [address] [facility] [address] [place] [address] (Wo rk) Scheduled Orders Name Type Priority Associated Order Schedule Diagnoses PROPHYLAXIS-ADULT Dental Procedures Routine 1 Occ urrences RECALL starting 2019 TOPICAL FLUORIDE Dental Procedures Routine 1 Occu rrences VARNISH starting 2019 PERIODIC ORAL Dental Procedures Routine 1 Occurre nces EVALUATION starting 2019 [id number] Dental Procedures Routine 1 Oc currences starting [...] EXISTING SEALANT E1 Routine 08/23/2007 12:00 AM TECHNICAL BUYER 31 EXISTING SEALANT E1 Routine 08/23/2007 12:00 AM TECHNICAL BUYER 30 EXISTING SEALANT E1 Routine 08/23/2007 12:00 AM TECHNICAL BUYER 2 EXISTING SEALANT E1 Routine 08/23/2007 12:00 AM TECHNICAL BUYER 18 EXISTING SEALANT E1 Routine 08/23/2007 12:00 AM TECHNICAL BUYER 14 EXISTING SEALANT E1 Routine 08/23/2007 12:00 AM TECHNICAL BUYER 3 EXISTING SEALANT E1 Routine 08/23/2007 12:00 AM TECHNICAL BUYER 19 O EXISTING COMPOSITE Routine 08/23/2007 12:00 AM FILLING TECHNICAL BUYER documented in this encounter Visit Diagnoses Diagnosis [...]
--- OUTSIDE RECORDS SUMMARY | 2022-07-10 15:04 | XMS_ITS | Encounter Summary ---
:1990 Author Organization [facility] Address [address] [place] [address] Care Team Providers Name Role Phone Unavailable Primary Care Provider Unavailable Encounter Details Date Type Department Care Team Description 05/04/2017 Office Visit [facility] 401 Undi fferentiated connective Ophthalmology Clinic tissue disease (HRC) [address] (Primary Dx) [place], [place] [id number] Social History Tobacco Use Types Packs/Day Years [...] Team Description 08/10/2022 Appointment Gastroenterology Ashly Fortune, PUBLIC SAFETY POLICE, VULCANIZER [address] [place] [address] (Wo rk) documented as of this encounter Visit Diagnoses Diagnosis Undifferentiated connective tissue disea se (HRC) - Primary Unspecified diffuse connective tissue di sease documented in this encounter
--- OUTSIDE RECORDS SUMMARY | 2022-07-10 15:04 | XMS_ITS | Encounter Summary ---
:1990 Author Organization [email or web address] Address [address] [place] [address] Care Team Providers Name Role Phone [facility], Clinician Primary Care Provider Unavailable Reason for Visit Reason Comments Refill Encounter Details Date Type Department Care Team Description 02/10/2021 Refill Paicines Rheumat Merlin Pearl MD Refill [address] [facility] with [facility] [address] [place] [address] [place], [place] [address] (Wo rk) Social History Tobacco Use Types [...] Team Description 08/10/2022 Appointment Gastroenterology Ashly Fortune, CARE SERVICES MANAGER, LETTER STAMPING MACHINE OPERATOR [address] [place], [place] [phone] (Wo rk) documented as of this encounter Visit Diagnoses Diagnosis Undifferentiated connective tissue disea se (HRC) Unspecified diffuse connective tissue di sease High risk medication use Encounter for long-term (current) use of other medications documented in this encounter Care Teams Rotary Engraver Relationship Specialty Start Date End Date Victor Manuel Clinician PCP - General 11/22/18 06/21/22 [address] [facility] [place] [address] documented as of this encounter
--- OUTSIDE RECORDS SUMMARY | 2022-07-10 15:04 | XMS_ITS | Encounter Summary ---
:1990 Author Organization [facility] Address [address] [place] [address] Care Team Providers Name Role Phone Unavailable Primary Care Provider Unavailable Reason for Visit Reason Comments Revisit Encounter Details Date Type Department Care Team Description 05/03/2018 Office Visit [facility] Kaitlyn Muhammad oesophageal reflux disease, esophagitis presence not specified (Primary Dx); [address] [facility], PROPERTY MANAGEMENT BOOKKEEPER, DISTRIBUTOR SALES MANAGER Chronic gastritis without bleeding, unsp ecified gastritis type; Clinic [address] Current use of proton pump inhibitor [address] [place] [address] [phone] Social History Tobacco Use Types Packs/Day Years [...] concerns, please call [facility] at [phone]. documented in this encounter Progress Notes Kaitlyn [...] vitamin D to prevent bone loss with computer terminal operator PPI use. Today Juliette states she is [...] arthritis ??? Coronary Artery Disease Maternal Grandfather [place] in his 40s ??? Cancer, Breast Negative Family History ??? Cancer, Colon Negative Family History ??? Cancer, Ovary Negative Family History ??? Macular Degeneration Negative Family History ??? Retinal Detachment Negative Family History Social History Social History ??? Marital status: Significant Other/Partner Spouse name: N/A ??? Number of children: N/A ??? Years of education: N/A Occupational History ??? 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 Student Social History Main Topics ??? [...] magnesium, calcium, and vitamin D levels with computer terminal operator PPI use. She was told to try calcium and vitamin D gummies to see if this bothered her stomach less than the traditional supplements. She was asked to follow up in 1 yearand call for further questions or concerns. Kaitlyn Muhammad APRN, DISTRIBUTOR SALES MANAGER 05/03/2018, 9:14 AM documented in this encounter Nursing Notes Fara Bennett - 05/03/2018 8:00 AM CDT Sent to through new STEVE [id number] Fara Bennett - 05/03/2018 8:00 AM CDT Per call to HECTOR gabriel still in process, response expected by 05/23 Fara Bennett - 05/03/2018 8:00 AM CDT Prior Authorization for omeprazole 20 mg has been approved through [employer] insurance. Approval is granted for/until na with approval number na. Faxed the approval to the pharmacy with a note to call the patient when the medication is ready. documented in this encounter Plan of Treatment Upcoming Encounters Date Type Specialty Care Team Description 08/10/2022 Appointment Gastroenterology Ashly Fortune, CISCO, MATILDA [address] [facility] [address] [place] [address] (Wo rk) documented as of this encounter Results Magnesium (05/03/2018 8:40 AM CDT) athologist Signature Magnesium 2.5 1.6 - 2.6 [facility] mg/dl Specimen Anatomical Collection Method Collection Time Receive d Time (Source) Location / / Volume Laterality 05/03/2018 8:40 AM 8 8:41 CDT AM CDT Narrative [facility] - 05/03/2018 12:42 PM CDT Performed at [facility], [address] [place] [id number] Kaitlyn Muhammad APRN, MATILDA LAB_1 Performing Organization Address City/State/ZIP Code Phon e Number [facility] [phone] (ABNORMAL) Vitamin D 25-Hydroxy, Total (05/03/2018 8:40 AM CDT) Analysis Performed At [facility] logist Time Signature Vitamin 16 (L) 30 [...] PM C DT Performed at [facility], [address] [place] [address] ??[id number] Kaitlyn Muhammad APRN, CNP LAB_1 Performing Organization Address [facility] Phon e Number [facility] [phone] Basic Metabolic Panel (05/03/2018 8:40 AM CDT) Analysis Performed At [facility] logist Time Signature Sodium 139 136 - [...] 12:42 PM CDT Performed at [facility], [address] [place] [address] ??[id number] Kaitlyn Muhammad APRN, CNP LAB_1 Performing Organization Address [facility] Phon e Number [facility] [phone] documented in this encounter Visit Diagnoses Diagnosis Gastroesophageal reflux disease, esophag itis presence not specified - Primary Chronic gastritis without bleeding, unsp ecified gastritis type Current use of proton pump inhibitor Gastroesophageal reflux disease, esophag itis presence not specified Chronic gastritis without bleeding, unsp ecified gastritis type documented in this encounter
--- OUTSIDE RECORDS SUMMARY | 2022-07-10 15:04 | XMS_ITS | Encounter Summary ---
:1990 Author Organization [facility] [employer] Address [address] [place] [address] Care Team Providers Name Role Phone [facility], Clinician Primary Care Provider Unavailable Reason for Visit Reason Onset Date Comments Refill 08/12/2020 omeprazole (PRILOSEC ) 20 MG capsule Encounter Details Date Type Department Care Team Description 08/12/2020 Refill [facility] [address], Refill (omeprazole [facility]-Elisa (PRILOSEC) [address] capsule) [place] [address] [place] [address] [phone] (Wo rk) Social History Tobacco Use Types [...] Level: 2.5 mg/dL on 05/03/2018 Powered by [employer], Reference: [id number], 08/12/2020 9:25:22 AM KNAPSACK SPRAYER, Pool: Juan Arevalo Care Team ([id number]) SACK SPRAYER Interface, Out Surescripts Prov Query - 08/12/2020 9:25 AM CST The following lab order(s) may be associated with the Result Note below: MAGNESIUM Notes Recorded by Chrissie Acharya LPN on 05/03/2018 at 2:07 PM Results letter sent. Chrissie Acharya LPN 05/03/2018, 2:07 PM ------ Notes Recorded by Kaitlyn Muhammad APRN, [employer]ARM [employer]Y [employer] GARDEN WORKERS on 05/03/2018 at 1:16 PM Juliette, Your electrolyte and magnesium levels are normal. Your vitamin D level is quite low which could be contributing to joint and muscle pain. Please take vitamin D and calcium supplements as we discussed during your visit. Please call for further questions or concerns. Kaitlyn Muhammad APRN, [employer] GARD[employer] WORK[employer] 05/03/2018, 1:16 PM SACK SPRAYER documented in this encounter Plan of Treatment Upcoming Encounters Date Type Specialty Care Team Description 08/10/2022 Appointment Gastroenterology Ashly Fortune, FOIL WRAPPER, [employer]ARD[employer] [address] [place], [place] [address] (Wo rk) documented as of this encounter Visit Diagnoses Not on filedocumented in this encounter Care Teams Children'S Librarian Relationship Specialty Start Date End Date Nemesio Rush PCP - General 11/22/18 06/21/[address] [place] [id number] documented as of this encounter
--- OUTSIDE RECORDS SUMMARY | 2022-07-10 15:04 | XMS_ITS | Clinical Summary ---
:1990 Author Organization [facility] Address [address] [place] [address] Care Team Providers Name Role Phone Needs Pcp, Assignment Primary Care Provider Source Comments You are receiving this document [...] for each transition of care or referral. Interviewstreet Allergies No known active allergies Medications Medication Sig Dispensed Refills Start Date End Date Status fexofenadine (PATRICIA) Take 180 mg by 0 Active 180 MG tablet mouth daily as needed for Other. fluticasone (FLONASE) APPLY OR INSTILL 1 48 g 1 7 Active 50 MCG/ACT nasal SPRAY INTO BOTH solution NOSTRILS DAILY. Additional Information Patient not taking. Reported on 06/22/2022 hydroxychloroquine (PLAQUENIL) Take 1 Tablet by mouth 90 Tablet 3 12/11/2019 Active 200 MG tabletIndications: daily. MUST HAVE Undifferentiated connective PLAQUENIL EYE EXAM FOR tissue disease (HRC), High risk FURTHER REFILLS medication use Additional Information Patient not taking. Reported on 06/22/2022 famotidine (PEPCID) 20 MG TAKE 1 TABLET BY MOUTH 180 Tablet 3 01/11/2020 Active tablet TWICE DAILY Additional Information Patient not taking. Reported on 06/22/2022 omeprazole (PRILOSEC) 20 MG Take 1 Capsule by 90 Capsule 0 Active capsuleIndications: mouth daily before Gastroesophageal reflux breakfast. disease, esophagitis presence not specified Vit-Fe Fumarate-FA 0 Active ( OR) Ca Cit Malate-Cholecalciferol 0 Active (CALCIUM CITRATE MALATE-VIT D OR) Active Problems Problem Noted Date High risk medication use 05/26/2018 Cervical cancer screening 04/07/2017 Overview: 2013 NILM 2017 ASCUS, HPV negative 26 y.o. Plan: annual Pap d/t Plaquenil rx Undifferentiated connective tissue disease 05/25/2016 Abnormal TSH 12/14/2013 Familial hyperlipidemia 12/14/2013 Insomnia 02/18/2011 Contraceptive surveillance 07/29/2010 Chronic rhinitis 12/23/2004 Cough 12/23/2004 Comments Yes Resolved Problems Problem Noted Date Resolved Date Major depressive disorder, single episode, moderate 02/08/20 10 10/08/2011 Hypercholesterolemia 12/14/2013 Encounters Date Type Specialty Care Team Description 06/29/2022 Office Visit Ophthalmology Rakesh Purdy, Long-term use of Plaquenil (Primary Dx); OD Myopia, right 06/22/2022 Office Visit Rheumatology Merlin Dacosta MD Undifferenti ated connective tissue disease (HRC) (Primary Dx); High risk medic ation use; , unsp ecified gestational age from Last 3 Months Immunizations Name Administration Dates Next Due 4vHPV (Gardasil) 11/18/2007, 07/13/2007, 05/05/2007 DTaP 02/23/1997, 02/12/1993, 01/10/1992, 1991, 1991 Flu Vac (3+ yrs) 05/23/2008 HepA Adult (19+ yrs) 12/14/2013 HepB, Unspecified Formulation 11/19/1995, 02/12/1993, 1991 Influenza IIV4 (Quadrivalent) 0.5mL 05/26/2018, 04/19/2017, 04/02/2015, (08203) 05/10/2014, 05/26/2013 Influenza Vaccine (3+years) ([facility] 04/22/2009 Clinic) Influenza, Unspecified Formulation 05/03/2011 MCV4 [...] Date Smoking Tobacco: Former Smokeless Tobacco: Never Tobacco Cessation: Counseling Given: Not Answered Alcohol Use Standard Drinks/Week Comments Not Currently 0.8 (1 standard drink = 0.6 oz pure alco hol) social, maybe once a month Comments Yes Sex Assigned at Date Recorded Not on file Last Filed Vital Signs Vital Sign Reading Time Taken Comments Blood Pressure 122/47 05/26/2018 8:32 AM CDT Pulse 90 05/26/2018 8:32 AM CDT Temperature 36.9 ??C (98.5 ??F) 05/03/2018 8:12 AM CDT Respiratory Rate 16 04/28/2017 8:46 AM CDT Oxygen Saturation 100% 07/29/2017 3:05 PM WATER GAS OPERATOR Inhaled Oxygen Concentration - - Weight 90.3 kg (199 lb) 05/26/2018 8:32 AM CDT Height 160 cm (5' 3) 05/26/2018 8:32 AM CDT Body Mass Index 35.25 05/26/2018 8:32 AM CDT Plan of Treatment Upcoming Encounters Date Type Specialty Care Team Description 08/10/2022 Appointment Gastroenterology Ashly Fortune, CONSUMER INSIGHTS SPECIALIST, VIRTUAL RECRUITER [address] [place], [place] [phone] (Wo rk) Health Maintenance Due Date Last Done Comments HIV Screening (Preventive 2007 Services) Pap 03/26/2018 03/26/2017, 05/26/2013 Adult Preventive Visit 03/26/2019 03/26/2017, 05/26/2013, 12/16/2011, Additional history exists COVID-19 Vaccine (3 - 11/05/2020 09/10/2020, 08/20/2020 Booster for Pfizer series) DTaP/Tdap/Td (7 - Tdap) 10/07/2021 10/08/2011, 03/12/2004, 03/12/2004, Additional history exists Zoster/Shingles (1 of 2) 2041 HepB Completed 11/19/1995, 02/12/1993, 07/02/1992 IPV (Polio) Completed 02/23/1997, 02/12/1993, 1991, Additional history exists MCV4 Aged Out 05/05/2007 No longer eligib le based on patient 's age to complete this topic HepA Completed 12/14/2013, 11/21/2012 Hep C Screening (Preventive Completed 02/23/2014 Services) HPV Vaccine Completed 10/20/2021, 11/18/2007, 07/13/2007, Additional history exists Influenza Completed 05/22/2022, 06/30/2021, 05/26/2018, Additional history exists Hib Aged Out No longer eligib le based on patient 's age to complete this topic Pneumococcal Aged Out No longer eligib le based on patient 's age to complete this topic Insurance Payer Benefit Plan Subscriber ID Effective Phone Address Typ e / Group Dates [facility] COMM [id number] 2015-Prese Commercial DENTAL PLAN [facility] nt DENTAL MEDICA MEDICA ELECT [id number] 2022-Pres Co mmercial ent Care Teams Housekeeping Director Relationship Specialty Start Date End Date Needs Pcp, Assignment PCP - General 06/22/22 [place] [address]
--- OUTSIDE RECORDS SUMMARY | 2022-07-10 15:04 | XMS_ITS | Encounter Summary ---
:1990 Author Organization [facility] [employer] Address [address] [place] [address] Care Team Providers Name Role Phone Unavailable Primary Care Provider Unavailable Encounter Details Date Type Department Care Team Description 04/19/2017 Telephone [facility] Orlando Mckinley MD [address] [place], [place] [address] Social History Tobacco Use Types Packs/Day Years [...] and she verbalized understanding. Rajwinder Garcia LPN TTET Shikha Son LPN - 04/20/2017 8:24 AM [...] Team Description 08/10/2022 Appointment Gastroenterology Ashly Fortune, VP PROJECT, VASCULAR SURGERY PHYSICIAN [address] [place] [address] (Wo rk) documented as of this encounter Visit Diagnoses Not on filedocumented in this encounter
--- OUTSIDE RECORDS SUMMARY | 2022-07-10 15:04 | XMS_ITS | Encounter Summary ---
:1990 Author Organization [facility] Address [address] [place] [address] Care Team Providers Name Role Phone Unavailable Primary Care Provider Unavailable Encounter Details Date Type Department Care Team Description 05/03/2018 Lab Visit [facility] Specialty Gas troesophageal reflux disease, esophagitis presence not specified; Center [address] Chronic gastritis without bl eeding, unspecified gastritis type [address] [place] [address] Social History Tobacco Use Types [...] LPN 05/03/2018, 2:07 PM Kaitlyn Muhammad APRN, PHLEBOTOMY DIRECTOR - 05/03/2018 1:16 PM CDT Juliette, Your electrolyte and magnesium levels are normal. Your vitamin D level is quite low which could be contributing to joint and muscle pain. Please take vitamin D and calcium supplements as we discussed during your visit. Please call for further questions or concerns. Kaitlyn Muhammad APRN, CNP 05/03/2018, 1:16 PM documented in this encounter Plan of Treatment Upcoming Encounters Date Type Specialty Care Team Description 08/10/2022 Appointment Gastroenterology Ashly Fortune APRN, CNP [address] [facility] [address] [place] [address] (Wo rk) documented as of this encounter Procedures Procedure [...] - 05/03/2018 12:42 PM CDT Performed at [facility], [address] [place] [phone] Kaitlyn Muhammad APRN, CNP LAB_1 Performing Organization Address City/State/ZIP Code Phon e Number [facility] [phone] (ABNORMAL) Vitamin D 25-Hydroxy, Total (05/03/2018 8:40 AM CDT) Analysis Performed At [facility] Time Signature Vitamin 16 (L) 30 - [...] 05/03/2018 1:02 PM C DT Performed at [facility], [address] [place] [address] ??[phone] Kaitlyn Muhammad APRN, CNP LAB_1 Performing Organization Address [facility] Phon e Number [facility] [phone] Basic Metabolic Panel (05/03/2018 8:40 AM CDT) Analysis Performed At [facility] Time Signature Sodium 139 136 - 145 [...] - 05/03/2018 12:42 PM CDT Performed at [facility], [address] [place] [address] ??[phone] Kaitlyn R Hoisser BIOMED TECH, PHLEBOTOMY DIRECTOR LAB_1 Performing Organization Address City/State/ZIP Code Phon e Number [facility] [phone] documented in this encounter Visit Diagnoses Diagnosis Gastroesophageal reflux disease, esophag itis presence not specified Chronic gastritis without bleeding, unsp ecified gastritis type documented in this encounter
--- OUTSIDE RECORDS SUMMARY | 2022-07-10 15:04 | XMS_ITS | Encounter Summary ---
:1990 Author Organization [employer] Address [address] [place] [address] Care Team Providers Name Role Phone Needs Pcp, Assignment Primary Care Provider Reason for Visit Reason Comments Follow-up Encounter Details Date Type Department Care Team Description 06/22/2022 Office Visit Merlin Washington MD Undifferentiated connective tissue disea se (HRC) (Primary Dx); Rheumatology [address] High risk medication use; [address] [facility] , [place] [address] [phone] Social History Tobacco Use Types Packs/Day Years Used Date Smoking Tobacco: Former Smokeless Tobacco: Never Tobacco Cessation: Counseling Given: Not Answered Alcohol Use Standard Drinks/Week Comments Not Currently 0.8 (1 standard drink = 0.6 oz pure alco hol) social, maybe once a month Sex Assigned at Date Recorded Not on file documented as of this encounter Patient Instructions Patient InstructionsMerlin Dacosta MD - 06/22/2022 9:00 AM CST Longstanding history of undifferentiated connective tissue disease. Patient was on Plaquenil for almost 8 years with good outcome. Recently patient decided to stop Plaquenil after becoming . Patient is at 6 months. At this time there is a low suspicion for an active inflammatory arthritis or connective tissue disease. Previous rheumatologic workup showed negative Sjogren antibodies SSA/SSB. It is okay to hold the Plaquenil at this time and continue observation. Return to clinic as needed, if new symptoms develop. ACE PACKER documented in this encounter Progress Notes Merlin Dacosta MD - 06/22/2022 9:00 AM CST Rheumatology Follow up Note Chief Complaint Patient presents with Follow-up HPI: Juliette Gaming is a 31 y.o. female with medical history as stated below including history of undifferentiated connective tissue disease diagnosed many years ago has failed to follow-up in the last 2 years. Previously patient was seen by Dr. Winn in 2013 with a clinical presentation of generalized arthralgia, positive MELISSA and elevated inflammatory markers. She responded well to systemic prednisone and was started on Plaquenil 200 mg twice daily which later on was lowered to 200 mg daily. Was seen by Dr. Jiang and later was seen by me in December of 2019 and at that time it was felt that her disease was under control and stable. The decision was made to continue the Plaquenil 200 mg daily as a maintenancetherapy. Patient is coming today for follow-up. She is and 6 months' gestation. Patient decided to stop Plaquenil on her own once she found out that she was . Denies any significant change in her joint symptoms. Sometimes complains of mild joint pain during the cold weather. Denies any red hotswollen joints. Denies any skin rash. Denies any oral ulcers. Denies any chest pain or shortness of breath. Patient Active Problem List Diagnosis Chronic rhinitis Cough Contraceptive surveillance Insomnia Abnormal TSH Familial hyperlipidemia Undifferentiated connective tissue disease (HRC) Cervical cancer screening High risk medication use Past Medical History: Diagnosis Date Depression Dry mouth Gastric reflux Hypercholesterolemia Joint disorder Joint pain saw rheum, on plaquenil Major depressive disorder, single episode, moderate (HRC) 02/07/2010 situational Past Surgical History: Procedure Laterality Date COLONOSCOPY 2016 EXTRACT, WISDOM/SINGLE TOOTH UPPER GI ENDOSCOPY 2017 gastritis Outpatient Encounter Medications as of 06/22/2022 Medication Sig Dispense Refill Ca Cit Malate-Cholecalciferol (CALCIUM CITRATE MALATE-VIT D OR) famotidine (PEPCID) 20 MG tablet TAKE 1 TABLET BY MOUTH TWICE DAILY (Patient not taking: Reported on 06/22/2022) 180 Tablet 3 fexofenadine (PATRICIA) 180 MG tablet Take 180 mg by mouth daily as needed for Other. (Patient not taking: Reported on 06/22/2022) fluticasone (FLONASE) 50 MCG/ACT nasal solution APPLY OR INSTILL 1 SPRAY INTO BOTH NOSTRILS DAILY. (Patient not taking: Reported on 06/22/2022) 48 g 1 hydroxychloroquine (PLAQUENIL) 200 MG tablet Take 1 Tablet by mouth daily. MUST HAVE PLAQUENIL EYE EXAM FOR FURTHER REFILLS (Patient not taking: Reported on 06/22/2022) 90 Tablet 3 omeprazole (PRILOSEC) 20 MG capsule Take 1 Capsule by mouth daily before breakfast. 90 Capsule 0 Vit-Fe Fumarate-FA ( OR) No facility-administered encounter medications on file as of 06/22/2022. No Known Allergies Social History Substance and Sexual Activity Alcohol Use Not Currently Alcohol/week: 0.8 standard drinks Types: 1 Standard drinks or equivalent per week Comment: social, maybe once a month Social History Tobacco Use Smoking Status Former Smokeless Tobacco Never EXAM General Appearance: Pleasant, alert, appropriate appearance for age. No acute distress HEENT Exam: Normocephalic, atraumatic, clear sclera. Neck Exam: Supple, no masses or nodes. Chest/Respiratory Exam: Normal chest wall and respirations. Clear to auscultation. Cardiovascular Exam: Regular rate and rhythm, no murmur. Musculoskeletal Exam: Normal muscle bulk. No signs of active synovitis. No joint effusion. Full range of motion in all 4 extremities. Normal muscle strength in all 4 extremities. Skin: no rash Neurologic Exam: Nonfocal, normal gross motor movement, tone, and coordination. No tremor. Lab: Lab Results Component Value Date WBC 6.9 04/19/2017 RBC 4.63 04/19/2017 Hemoglobin 12.1 04/19/2017 HCT 37.5 04/19/2017 MCV 81.0 04/19/2017 RDW 13.3 04/19/2017 Platelets 311 04/19/2017 Lab Results Component Value Date AST (SGOT) 27 02/23/2014 Lab Results Component Value Date Creatinine 0.69 05/03/2018 Assessment and Plan: Longstanding history of undifferentiated connective tissue disease. Patient was on Plaquenil for almost 8 years with good outcome. Recently patient decided to stop Plaquenil after becoming . Patient is at 6 months gestation. Discussed with the patient the risks and benefits of resuming Plaquenil. At this time there is a low suspicion for any active inflammatory arthritis or connective tissue disease. Previous rheumatologic workup showed negative Sjogren antibodies SSA/SSB. The decision was made to hold the Plaquenil at this time and continue observation. Return to clinic as needed, if new symptoms develop. Total of 30 minutes was spent reviewing previous medical records, consulting patient and charting. Merlin Dacosta. Rheumatology [facility] 06/22/2022 This note consists of symbols derived from keyboarding, and voice recognition software. As a result,wrong word or '[id number]' substitutions may have occurred due to the inherent limitations of voice recognition software. There may be errors in the script that have gone undetected. Please consider this when interpreting information found in this chart. ACE PACKER documented in this encounter Plan of Treatment Upcoming Encounters Date Type Specialty Care Team Description 08/10/2022 Appointment Gastroenterology Ashly Fortune, AUTOMATIC SILK SCREEN PRINTER, MANAGER SOUND [address] [place], [place] [phone] (Wo rk) documented as of this encounter Visit Diagnoses Diagnosis Undifferentiated connective tissue disea se (HRC) - Primary Unspecified diffuse connective tissue di sease High risk medication use Encounter for long-term (current) use of other medications , unspecified gestational age documented in this encounter Care Teams Digital Marketing Intern Relationship Specialty Start Date End Date Needs Pcp, Assignment PCP - General 06/22/22 [place], [place] [phone] documented as of this encounter
--- OUTSIDE RECORDS SUMMARY | 2022-07-10 15:04 | XMS_ITS | Encounter Summary ---
:1990 Author Organization [employer] Address [address] [place] [address] Care Team Providers Name Role Phone Unavailable Primary Care Provider Unavailable Reason for Visit Reason Comments Revisit Encounter Details Date Type Department Care Team Description 04/28/2017 Office Visit Specialty Center Kaitlyn Muhammad oesophageal reflux disease, esophagitis presence not specified (Primary Dx); [address] [facility], PRIMARY GRADE TEACHER, STEEL RULE DIE MAKER APPRENTICE Current use of proton pump inhibitor Clinic [address] [place], [place] [id number] Social History Tobacco Use Types Packs/Day [...] vitamin D to prevent bone loss with shelter omeprazole use. Please follow up in 6 months and call for further questions or concerns. Your follow up appointment with Kaitlyn Mason NP is scheduled for WednesdayOctober 26 at 8:40 am. If your appointment needs to be cancel or reschedule please call [phone]. Kaitlyn Mason APRN, CNP 04/28/2017, 8:56 AM If you have any questions or concerns, please call [facility] at [phone]. documented in this encounter Progress Notes Kaitlyn [...] arthritis ??? Coronary Artery Disease Maternal Grandfather [place] in his 40s ??? Cancer, Breast Negative [...] were drawn to assess for deficiencies with shelter PPI use. She was asked to follow up in 6 months and to call for further questions or concerns. Kaitlyn Mason APRN, CNP 04/28/2017, 9:21 AM documented in this encounter Plan of Treatment Upcoming Encounters Date Type Specialty Care Team Description 08/10/2022 Appointment Gastroenterology Ashly Fortune APRN, MATILDA [address] [facility] [address] [place], [place] [phone] (Wo rk) documented as of this encounter Results (ABNORMAL) Vitamin [...] 04/28/2017 1:29 PM C DT Performed at [facility], [address] [place] [address] ??[phone] Kaitlyn Muhammad APRN, STEEL RULE DIE MAKER APPRENTICE LAB_1 Performing Organization Address [facility] Phon e Number [facility] [phone] Magnesium (04/28/2017 9:13 AM CDT) athologist Signature Magnesium 2.3 1.6 - 2.6 [facility] mg/dl Specimen Anatomical Collection Method Collection Time Receive d Time (Source) Location / / Volume Laterality 04/28/2017 9:13 AM 7 9:21 CDT AM CDT Narrative [facility] - 04/28/2017 12:58 PM CDT Performed at [facility], [address] [place] [address] ??[phone] Kaitlyn Muhammad APRN, STEEL RULE DIE MAKER APPRENTICE LAB_1 Performing Organization Address [facility]/ZIP Code Phon e Number [facility] [phone] documented in this encounter Visit Diagnoses Diagnosis Gastroesophageal reflux disease, esophag itis presence not specified - Primary Current use of proton pump inhibitor Gastroesophageal reflux disease, esophag itis presence not specified documented in this encounter
--- OUTSIDE RECORDS SUMMARY | 2022-07-10 15:04 | XMS_ITS | Encounter Summary ---
:1990 Author Organization [facility] Address [address] [place] [address] Care Team Providers Name Role Phone Unavailable Primary Care Provider Unavailable Encounter Details Date Type Department Care Team Description 04/28/2017 Lab Visit [facility] Specialty Gas troesophageal reflux Center [address] disease, esophagitis [address] [place] [address] Social History Tobacco Use Types [...] Please call for further questions or concerns. Kailtyn Mason APRN, CNP 04/28/2017, 1:54 PM documented in this encounter Plan of Treatment Upcoming Encounters Date Type Specialty Care Team Description 08/10/2022 Appointment Gastroenterology Ashly Fortune APRN, CNP [address] [facility] [address] [place], [place] [phone] (Wo rk) documented as of this encounter [...] 04/28/2017 1:29 PM C DT Performed at [facility], [address] [place] [phone] Kaitlyn Muhammad APRN, CNP LAB_1 Performing Organization Address City/State/ZIP Code Phon e Number [facility] [phone] Magnesium (04/28/2017 9:13 AM CDT) P athologist Signature Magnesium 2.3 1.6 - 2.6 [facility] mg/dl Specimen Anatomical Collection Method Collection Time Receive d Time (Source) Location / / Volume Laterality 04/28/2017 9:13 AM 7 9:21 CDT AM CDT Narrative [facility] - 04/28/2017 12:58 PM CDT Performed at [facility], [address] [place] [phone] Kaitlyn Muhammad APRN, ASSISTANT ACCOUNTING MANAGER LAB_1 Performing Organization Address City/State/ZIP Code Phon e Number [facility] [phone] documented in this encounter Visit Diagnoses Diagnosis Gastroesophageal reflux disease, esophag itis presence not specified documented in this encounter
--- OUTSIDE RECORDS SUMMARY | 2022-07-10 15:04 | XMS_ITS | Encounter Summary ---
:1990 Author Organization [facility] Address [address] [place] [address] Care Team Providers Name Role Phone [facility], Clinician Primary Care Provider Unavailable Reason for Visit Reason Comments Refill omeprazole (PRILOSEC) 20 MG capsule [Pharmacy Med Name: OMEPRAZOLE 20MG CAPSULES] Encounter Details Date Type Department Care Team Description 03/16/2020 Refill [facility] [address] Omari Muhammad , Refill (omeprazole [facility] CUSTOMER BUSINESS MANAGERMATILDA (PRILOSEC) 20 MG capsule [address] [Pharmacy Med Name: [place] [address] [place], [place] OMEPRAZOLE 20MG [phone] [id number] CAPSULES]) [phone] (Wo rk) Social History Tobacco Use Types [...] Omeprazole once daily and Pepcid at bedtime. Pipo Gandhi APRN, CNP is out of office [...] if this works for her reflux per Pipo Gandhi APRN, CNP telemedicine note from 12/21/2019 [...] and coordination of care for GERD. ?? Pipo Gandhi APRN. PERSONAL LINES APPRAISER Interface, Out Surescripts Prov Query - 03/16/2020 3:28 AM CDT omeprazole (PRILOSEC) 20 MG capsule [Pharmacy Med Name: OMEPRAZOLE 20MG CAPSULES] GERD / PUD - PPI's -> The requested sig has changed from the last order. -> Mg Level is overdue (performed 23 months ago, required every 12 months) Last qualifying visit: 12/21/2019 (in [facility] with PIPO GANDHI) Next scheduled visit: None Last ordered by OMARI MUHAMMAD R: 05/12/2019 (309 days ago) QTY: 180, Refills: 1, Sig: take 1 capsule by mouth twice daily before meals. take 30 to 60 minutes before breakfast and evening meal. (changed) Mg Level: 2.5 mg/dL on 05/03/2018 Powered by [employer], Reference: [id number], 03/16/2020 3:28:36 AM CDT, Pool: Jb Sahni Care Team ([id number]) Interface, Out ZeroMail Prov Query - 03/16/2020 3:28 AM CDT The following lab order(s) may be associated with the Result Note below: MAGNESIUM Notes Recorded by Chrissie Acharya LPN on 05/03/2018 at 2:07 PM Results letter sent. Chrissie Acharya LPN 05/03/2018, 2:07 PM ------ Notes Recorded by Omari Muhammad APRN, PERSONAL LINES APPRAISER on 05/03/2018 at 1:16 PM Juliette, Your [...] Description 08/10/2022 Appointment Gastroenterology Ashly Fortune APRN, PERSONAL LINES APPRAISER [address] [facility] [address] [place], [place] [phone] (Wo rk) documented as of this encounter Visit Diagnoses Diagnosis Gastroesophageal reflux disease, esophag itis presence not specified documented in this encounter Care Teams Wind Project Manager Relationship Specialty Start Date End Date Nemesio Rush PCP - General 11/22/18 06/21/22 [address] [facility] [place] [address] documented as of this encounter
--- OUTSIDE RECORDS SUMMARY | 2022-07-10 15:04 | XMS_ITS | Encounter Summary ---
:1990 Author Organization [employer] Address [address] [place] [address] Care Team Providers Name Role Phone Needs Pcp, Assignment Primary Care Provider Reason for Visit Reason Comments Eye Exam Consult/Transfer Care (Routine) - Closed Specialty Diagnoses / Procedures Referred By Contact Refer red To Contact Diagnoses Undifferentiated connective tissue disease (HRC) High risk medication use Patience Jiang MD [address] [place] [address] Referral ID Status Reason Start Date Expiration Date Visits Requ ested Visits Authorized [id number] Closed 05/26/2018 08/25/2019 1 1 Encounter Details Date Type Department Care Team Description 06/15/2018 Office Visit Deep Bailey, Encounter for eye exam due to high risk medication (Primary Dx); Ophthalmology OD Long-term use of Plaquenil; [address] [address] [place]; [place] [address] [place], [place] Ptosis, congenital, bilatera l [phone] (Wo rk) Social History Tobacco Use Types [...] HVF 10-2 ?? OCT: ?? Macula Cube [id number] ?? HD 1 line 100x ?? HD 21 line ?? Spectacle prescription not necessary, not recommended, and not writtent to patient ?? Return for comprehensive eye and Hydroxychloroquine eye health assessment in 1 year or as needed K MECHANIC documented in this encounter Plan of Treatment Upcoming Encounters Date Type Specialty Care Team Description 08/10/2022 Appointment Gastroenterology Ashly Fortune, EPIC ANESTHESIA ANALYST, REGIONAL RECRUITER [address] [place] [address] [place] [address] (Wo rk) documented as of this encounter Visit Diagnoses Diagnosis Encounter for eye exam due to high risk medication - Primary Long-term use of Plaquenil Emmetropia Screening for other eye conditions Ptosis, congenital, bilateral Congenital ptosis of eyelid documented in this encounter Care Teams Self Defense Instructor Relationship Specialty Start Date End Date Needs Pcp, Assignment PCP - General 05/26/18 11/21/18 [place] [address] documented as of this encounter
--- OUTSIDE RECORDS SUMMARY | 2022-07-10 15:04 | XMS_ITS | Encounter Summary ---
:1990 Author Organization [facility] Address [address] [place] [address] Care Team Providers Name Role Phone Unavailable Primary Care Provider Unavailable Reason for Visit Reason Comments APPOINTMENT REQUEST Encounter Details Date Type Department Care Team Description 10/05/2017 Telephone [facility] 401 Marcia Medeiros APPOINTMENT REQUEST Rheumatology Clinic MD Letty 401 [facility]. [address] [place] [address] [place], [place] [phone] (Wo rk) Social History Tobacco Use Types Packs/Day Years Used Date Smoking Tobacco: Former Smokeless Tobacco: Never Alcohol Use Standard Drinks/Week Comments Yes 0.8 (1 standard drink = 0.6 oz pure alco hol) soc Sex Assigned at Date Recorded Not on file documented as of this encounter Nursing Notes Latoya Gamble CMA - 10/05/2017 11:43 AM CST Cancel error for TE. L ATTORNEY documented in this encounter Plan of Treatment Upcoming Encounters Date Type Specialty Care Team Description 08/10/2022 Appointment Gastroenterology Ashly Fortune, [facility], MARKET SALES MANAGER [address] [place] [address] [place], [place] [address] (Wo rk) documented as of this encounter Visit Diagnoses Not on filedocumented in this encounter
--- OUTSIDE RECORDS SUMMARY | 2022-07-10 15:04 | XMS_ITS | Encounter Summary ---
:1990 Author Organization [facility] Address [address] [place] [address] Care Team Providers Name Role Phone Needs Pcp, Assignment Primary Care Provider Reason for Visit Reason Comments Eye Exam Encounter Details Date Type Department Care Team Description 06/29/2022 Office Visit Rakesh Goldberg, Long-term use of Plaquenil (Primary Dx); Ophthalmology OD Myopia, right [address] [facility] [address] [place] [address] [address] [phone] [place] [address] (Wo rk) Social History Tobacco Use Types Packs/Day Years Used Date Smoking Tobacco: Former Smokeless Tobacco: Never Alcohol Use Standard Drinks/Week Comments Not Currently 0.8 (1 standard drink = 0.6 oz pure alco hol) social, maybe once a month Sex Assigned at Date Recorded Not on file documented as of this encounter Progress Notes Rakesh Purdy, OD - 06/29/2022 8:15 AM CST General medical assessment: Patient is alert. Basically healthy. Assessment: ICD-10-CM 1. Long-term use of Plaquenil Z79.899 2. 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 Discussed findings with patient. 2. No Rx needed. 3. Return to clinic in 1 year(s) or as needed. HVF 10-2 and OCT tests next year. 1) Plaquenil use: No evidence of toxicity. 200 mg/day Started Started March 2015, 400 mg/day for 3 years then 200 mg/day through March 2022 when stoppeddue to . Cumulative Dose: ~875 No kidney disease. No liver disease HVF - last 05/2017 sd-OCT - 05/2017 Fundus Autofluorescence - none She understands the low risk of retinal toxicity and the importance of continued monitoring ASSISTANT documented in this encounter Plan of Treatment Upcoming Encounters Date Type Specialty Care Team Description 08/10/2022 Appointment Gastroenterology Ashly Fortune, FACILITIES MANAGEMENT EXECUTIVE, SHRIMP TRAWLER CAPTAIN [address] [place] [address] [place], [place] [address] (Wo rk) documented as of this encounter Visit Diagnoses Diagnosis Long-term use of Plaquenil - Primary Myopia, right documented in this encounter Care Teams Medical Billing Coordinator Relationship Specialty Start Date End Date Needs Pcp, Assignment PCP - General 06/22/22 [place], [place] [phone] documented as of this encounter
--- OUTSIDE RECORDS SUMMARY | 2022-07-10 15:04 | XMS_ITS | Encounter Summary ---
:1990 Author Organization [facility] Address [address] [place] [address] Care Team Providers Name Role Phone [facility], Clinician Primary Care Provider Unavailable Reason for Visit Reason Comments Refill Encounter Details Date Type Department Care Team Description 08/15/2019 Refill [place] [facility] Patience Quiros MD Refill [email or web address] [place] [address] [place] [address] [phone] (Wo rk) Social History Tobacco Use Types [...] 06-15-2018 No ophthalmoscopic evidence of ocular toxicity SAWYER Lee Ann Hodges LPN - 08/15/2019 12:16 PM CST Patient scheduled an appointment with Dr Dacosta 09-21-19 in 1V. She will schedule eye exam at [place] [facility] this week.. SAWYER Bethanie Trinh, RN - 08/15/2019 11:50 AM CST LV 05-26-2018 FV None Last eye exam 06-15-2018 Last office visit - to follow up in 1 year Nurse left message for patient to return call. Patient needs a FV and an eye exam SAWYER documented in this encounter Plan of Treatment Upcoming Encounters Date Type Specialty Care Team Description 08/10/2022 Appointment Gastroenterology Ashly Fortune, BAKERY TECHNICIAN, WET SANDER [address] [place] [address] [place] [address] (Wo rk) documented as of this encounter Visit Diagnoses Diagnosis Undifferentiated connective tissue disea se (HRC) Unspecified diffuse connective tissue di sease High risk medication use Encounter for long-term (current) use of other medications documented in this encounter Care Teams Water Fitness Instructor Relationship Specialty Start Date End Date Victor Manuel, Clinician PCP - General 11/22/18 06/21/22 [address] [facility] [address] documented as of this encounter
--- OUTSIDE RECORDS SUMMARY | 2022-07-10 15:04 | XMS_ITS | Encounter Summary ---
:1990 Author Organization [facility] Address [address] [place] [address] Care Team Providers Name Role Phone Unavailable Primary Care Provider Unavailable Reason for Visit Reason Comments Refill hydroxychloroquine (PLAQUENI L) 200 MG tablet [Pharmacy Med Name: HYDROXYCHLOROQUINE 200 MG TA B] Encounter Details Date Type Department Care Team Description 12/13/2017 Refill [facility] [address] (hydroxychloroquine Rheumatology Clinic MD Charles (PLAQUENIL) 200 MG tablet 401 [facility] [Pharmacy Med Name: [place] [address] HYDROXYCHLOROQUINE 200 MG [phone] TAB]) Social History Tobacco Use Types Packs/Day [...] two times a day. (unchanged) Powered by [employer], Reference: [id number], 12/13/2017 1:19:13 AM CDT, Pool: Arlen Perry Care Team ([id number]) documented in this encounter Plan of Treatment Upcoming Encounters Date Type Specialty Care Team Description 08/10/2022 Appointment Gastroenterology Ashly Fortune, PUBLIC EMPLOYMENT MEDIATOR, PURCHASING INTERNSHIP [address] [facility] [address] [place], [place] [address] (Wo rk) documented as of this encounter Visit Diagnoses Not on filedocumented in this encounter
--- OUTSIDE RECORDS SUMMARY | 2022-07-10 15:04 | XMS_ITS | Encounter Summary ---
:1990 Author Organization [facility] Address [address] [place] [address] Care Team Providers Name Role Phone [facility], Clinician Primary Care Provider Unavailable Reason for Visit Reason Comments SKIN LESION Back changing mole Encounter Details Date Type Department Care Team Description 09/25/2021 Office Visit [facility] [address] ltiplniraj benign melanocytic nevi of upper and lower extremities and trunk (Primary Dx); Dermatology MD Barrett; [address] orrheic keratosis; [address] [place] [address] [phone] (Wo rk) Social History Tobacco Use Types [...] Recommended skin cancer screening every 2-3 years. SPECIALIST documented in this encounter Plan of Treatment Upcoming Encounters Date Type Specialty Care Team Description 08/10/2022 Appointment Gastroenterology Ashly Fortune, PLACING JUDGE, SLIME PLANT OPERATOR HELPER [address] [place] [address] [place] [address] (Wo rk) documented as of this encounter Visit Diagnoses Diagnosis Multiple benign melanocytic nevi of uppe r and lower extremities and trunk - Primary Lentigines Other dyschromia Seborrheic keratosis Other seborrheic keratosis Guzman hemangioma Nevus, non-neoplastic documented in this encounter Care Teams Seal Skinner Relationship Specialty Start Date End Date Victor Manuel Clinician PCP - General 11/22/18 06/21/22 [address] [place] [address] documented as of this encounter
--- OUTSIDE RECORDS SUMMARY | 2022-07-10 15:04 | XMS_ITS | Encounter Summary ---
:1990 Author Organization [facility] Address [address] [place] [address] Care Team Providers Name Role Phone [facility], Clinician Primary Care Provider Unavailable Reason for Visit Reason Comments MONITORING HIGH-RISK MEDICATION Encounter Details Date Type Department Care Team Description 03/19/2020 Office Visit Rakesh Goldberg, Encounter for eye exam due to high risk medication (Primary Dx); Ophthalmology OD Ptosis, congenital, bilateral [address] [facility] [address] [place] [address] [facility] [phone] [place] [phone] (Wo rk) Social History Tobacco Use Types [...] Team Description 08/10/2022 Appointment Gastroenterology Ashly Fortune, MARKETING PLANNER, GEOLOGY FACULTY MEMBER [address] [place] [address] [place] [address] (Wo rk) documented as of this encounter Visit Diagnoses Diagnosis Encounter for eye exam due to high risk medication - Primary Ptosis, congenital, bilateral Congenital ptosis of eyelid documented in this encounter Care Teams Bisque Grader Relationship Specialty Start Date End Date Victor Manuel Clinician PCP - General 11/22/18 06/21/22 [address] [facility] [address] documented as of this encounter
--- OUTSIDE RECORDS SUMMARY | 2022-07-10 15:04 | XMS_ITS | Encounter Summary ---
:1990 Author Organization [employer] Address [address] [place] [address] Care Team Providers Name Role Phone Unavailable [...] [address] Myopia of right eye; [place] [address] [place], [place] Regular astigmatism of left eye [phone] Social History Tobacco Use Types Packs/Day Years [...] OD documented in this encounter Nursing Notes Fara Crowell COA - 05/04/2017 8:20 AM CDT Visual Field: Interpretation: 10-2 Performed by HERBERT Quiroga for dx undifferenticated connective tissue diease with high risk medication use documented in this encounter Plan of Treatment Upcoming Encounters Date Type Specialty Care Team Description 08/10/2022 Appointment Gastroenterology Ashly Fortune, HUMAN RESOURCES FILE CLERK, LINEN ATTENDANT [address] [place] [address] [place], [place] [address] (Wo rk) documented as of this encounter Visit Diagnoses Diagnosis Undifferentiated connective tissue disea se (HRC) - Primary Unspecified diffuse connective tissue di sease Long-term use of Plaquenil Myopia of right eye Myopia Regular astigmatism of left eye Regular astigmatism documented in this encounter
--- OUTSIDE RECORDS SUMMARY | 2022-07-10 15:04 | XMS_ITS | Encounter Summary ---
:1990 Author Organization [facility] Address [address] [place] [address] Care Team Providers Name Role Phone Nemesio Diehl Primary Care Provider Unavailable Reason for Visit Reason Comments Follow-up, NOS Encounter Details Date Type Department Care Team Description 12/21/2019 Telemedicine Specialty Center Ginna Gandhi, Savita roesophageal reflux [address] [facility] MATILDA PECK disease with esophagitis Clinic [address] (Primary Dx) [address] [place] [address] Social History Tobacco Use Types Packs/Day [...] care for GERD. Ginna Gandhi APRN. MATILDA [facility] [phone] documented in this encounter Plan of Treatment Upcoming Encounters Date Type Specialty Care Team Description 08/10/2022 Appointment Gastroenterology Ashly Fortune APRN, CNP [address] [place] [address] [place] [address] (Wo rk) documented as of this encounter Visit Diagnoses Diagnosis Gastroesophageal reflux disease with eso phagitis - Primary documented in this encounter Care Teams Control Manager Relationship Specialty Start Date End Date Victor Manuel Clinician PCP - General 11/22/18 06/21/22 [address] [facility] [facility] [place] [address] documented as of this encounter
--- OUTSIDE RECORDS SUMMARY | 2022-07-10 15:04 | XMS_ITS | Encounter Summary ---
:1990 Author Organization [facility] Address [address] [place] [address] Care Team Providers Name Role Phone Unavailable Primary Care Provider Unavailable Reason for Visit Reason Comments Refill fluticasone (FLONASE) 50 MCG /ACT nasal solution Encounter Details Date Type Department Care Team Description 09/28/2017 Refill [facility] Eduarda Matute MD Refill (fluticasone Practice [address] (FLONASE) 50 MCG/ACT [address] [place] [address] nasal solution ) [place], [place] [address] [phone] Social History Tobacco Use Types Packs/Day Years [...] remove pended medication. Thank you, Sandra Ortega T PILE DRIVER OPERATOR Sandra Ortega - 09/29/2017 3:40 PM CST Medication Refill - Overdue Visit Called patient, was: Unable to reach patient 1st call attempted. Left message to call back. Sandra Ortega T PILE DRIVER OPERATOR Indira Gomez RN - 09/29/2017 2:28 PM CST Further Assistance Needed on Refill from Design And Sales Consultant Patient is overdue for Office visit. A qualifying visit was not found within the last 2 years. Please call patient to schedule a Office Visit and document using .MIKAL. After attempting to schedule patient: Indira Gomez RN 09/29/2017, 2:28 PM Please route to: Clinician/Care Team Pool T PILE DRIVER OPERATOR Interface, Out [employer] Prov Query - 09/28/2017 11:45 AM CST [...] into both nostrils daily. (unchanged) Powered by [employer], Reference: [id number], 09/28/2017 11:45:41 AM Bayron BRYANT: TAMEKA BATISTA RN ([id number]) T PILE DRIVER OPERATOR documented in this encounter Plan of Treatment Upcoming Encounters Date Type Specialty Care Team Description 08/10/2022 Appointment Gastroenterology Ashly Fortune, CISCO, DIETARY CLERK [address] [facility] [address] [place], [place] [address] (Wo rk) documented as of this encounter Visit Diagnoses Not on filedocumented in this encounter
--- OUTSIDE RECORDS SUMMARY | 2022-07-10 15:04 | XMS_ITS | Encounter Summary ---
:1990 Author Organization [facility] Address [address] [place] [address] Care Team Providers Name Role Phone [facility], Clinician Primary Care Provider Unavailable Reason for Visit Reason Comments Video Visit Follow-up Encounter Details Date Type Department Care Team Description 12/11/2019 Telemedicine [place] MD Undifferentiated connective tissue disea se ([facility]); Rheumatology [address] High risk medication use [address] [place] [id number] Social History Tobacco Use Types Packs/Day Years [...] to systemic prednisone and was started on [id number] mg twice daily which later on was [...] or sooner if needed. Merlin Dacosta. Rheumatology [facility] documented in this encounter Plan of Treatment Upcoming Encounters Date Type Specialty Care Team Description 08/10/2022 Appointment Gastroenterology Ashly Fortune, ADOBE FLEX DEVELOPER, FREE LANCE MODEL [address] [facility] [address] [place], [place] [address] (Wo rk) documented as of this encounter Visit Diagnoses Diagnosis Undifferentiated connective tissue disea se (HRC) Unspecified diffuse connective tissue di sease High risk medication use Encounter for long-term (current) use of other medications documented in this encounter Care Teams Calender Roll Press Operator Relationship Specialty Start Date End Date Nemesio Rush PCP - General 11/22/18 06/21/22 [address] [place] [address] documented as of this encounter
--- OUTSIDE RECORDS SUMMARY | 2022-07-10 15:04 | XMS_ITS | Encounter Summary ---
:1990 Author Organization [employer] Address [address] [place] [address] Care Team Providers Name Role Phone Needs Pcp, Assignment Primary Care Provider Reason for Referral Consult/Transfer Care (Routine) - Closed Specialty Diagnoses / Procedures Referred By Contact Refer red To Contact Diagnoses Undifferentiated connective tissue disease (HRC) High risk medication use Patience Jiang MD [address] [place] [address] Referral ID Status Reason Start Date Expiration Date Visits Requ ested Visits Authorized [id number] Closed 05/26/2018 08/25/2019 1 1 Scheduling Instructions Your provider has [facility] [place]. You may call [phone] to schedule your appoi ntment. If you do not schedule an appointment within the next 1 to 3 business days, we will call you. Reason for Visit Reason Comments CONSULT Encounter Details Date Type Department Care Team Description 05/26/2018 Initial Consult Patience Plummer Undiffer entiated connective tissue disease (HRC) (Primary Dx); Rheumatology MD Tanja Needs flu shot; [address] [address] [facility] High [place] [address] [phone] Social History Tobacco Use Types Packs/Day Years [...] New Patient/Consult Note Referral: PATIENT SELF REFERRAL, [place] [phone] Chief Complaint Patient presents with ??? CONSULT [...] for establishment of care following Dr. Winn's fci. She states that she has done well [...] health her symptoms otherwise. She lives in [place] with her boyfriend and dog. They are saving up for their own house. She is doing night school through [employer]. Her goal is to become a marriage and family counselor. 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 She enjoys walking her dog with her boyfriend and herfree time. She will consume alcohol on social occasions but otherwise does not consume alcohol. Denies any ongoing tobacco or drug use. Her brother has vitiligo and her father and paternal grandmother have osteoarthritis. Her mother lives in [place]. Her father lives locally. She has 1 [...] was given as she is available in [place] on Mondays,depending on my clinic availability. Return [...] Team Description 08/10/2022 Appointment Gastroenterology Ashly Fortune, CHEMIST PHYSICAL, END PACKER [address] [place] [address] [place] [address] (Wo rk) Scheduled Referrals Name Type Priority Associated Diagnoses Order S chedule Ophthalmology Referral Routine Undifferentiated Ordered: Consult-Adult/Peds connective tissue dise ase 05/26/2018 ([facility]) High risk medication use documented as of this encounter Visit Diagnoses Diagnosis Undifferentiated connective tissue disea se ([facility]) - Primary Unspecified diffuse connective tissue di sease Needs flu shot Need for prophylactic vaccination and in oculation against influenza High risk medication use Encounter for long-term (current) use of other medications documented in this encounter Care Teams Interim Controller Relationship Specialty Start Date End Date Needs Pcp, Assignment PCP - General 05/26/18 11/21/18 [place] [address] documented as of this encounter
--- OUTSIDE RECORDS SUMMARY | 2022-07-10 15:04 | XMS_ITS | Encounter Summary ---
:1990 Author Organization [facility] Address [address] [place] [address] Care Team Providers Name Role Phone [facility], Clinician Primary Care Provider Unavailable Reason for Visit Reason Comments Refill famotidine (PEPCID) 20 MG ta blet [Pharmacy Med Name: FAMOTIDINE 20MG TABLETS] Encounter Details Date Type Department Care Team Description 01/11/2020 Refill [facility] [address] Gin[address] Gandhi, Refill (famotidine [facility] MATILDA PECK (PEPCID) 20 MG tablet [address] [Pharmacy Med Name: [place] [address] [place], [place] FAMOTIDINE 20MG [phone] [id number] TABLETS]) [phone] (Wo rk) Social History Tobacco Use Types [...] Garces RN 01/11/2020, 10:52 AM Interface, Out ProBinder Prov Query - 01/11/2020 3:30 AM CDT [...] a day. (changed but equivalent) Powered by [employer] Reference: [id number], 01/11/2020 3:30:24 AM CDT, Pool: Oksana Chacko Care Team ([id number]) documented in this encounter Plan of Treatment Upcoming Encounters Date Type Specialty Care Team Description 08/10/2022 Appointment Gastroenterology Ashly Fortune, CARBON PAPER COATING SUPERVISOR, CHIEF CREATIVE OFFICER [address] [place], [place] [address] (Wo rk) documented as of this encounter Visit Diagnoses Not on filedocumented in this encounter Care Teams Distribution Systems Superintendent Relationship Specialty Start Date End Date Victor Manuel, Clinician PCP - General 11/22/18 06/21/[address] [place] [address] documented as of this encounter
--- OUTSIDE RECORDS SUMMARY | 2022-07-10 15:04 | XMS_ITS | Encounter Summary ---
:1990 Author Organization [employer] Address [address] [place] [address] Care Team Providers Name Role Phone Unavailable Primary Care Provider Unavailable Reason for Visit Reason Comments Skin Check Encounter Details Date Type Department Care Team Description 07/09/2017 Office Visit [facility] Lexi Watkins Mult iple melanocytic nevi (Primary Dx); [address] [facility] MD Screening for malignant neoplasm of skin ; [address] [place] [address] [place], [place] [phone] [address] Social History Tobacco Use Types Packs/Day Years [...] needed for any new or changing growths. FINDER TWISTING DEPARTMENT documented in this encounter Progress Notes Lexi [...] history of melanoma: No. 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 FINDER TWISTING DEPARTMENT documented in this encounter Plan of Treatment Upcoming Encounters Date Type Specialty Care Team Description 08/10/2022 Appointment Gastroenterology Ashly Fortune, MONOTYPE OPERATOR, ADDRESS CHANGE CLERK [address] [place], [place] [address] (Wo rk) documented as of this encounter Visit Diagnoses Diagnosis Multiple melanocytic nevi - Primary Screening for malignant neoplasm of skin Screening for malignant neoplasm of the skin Skin tag Unspecified hypertrophic and atrophic co ndition of skin documented in this encounter
--- OUTSIDE RECORDS SUMMARY | 2022-07-10 15:04 | XMS_ITS | Encounter Summary ---
:1990 Author Organization [facility] Address [address] [place] [address] Care Team Providers Name Role Phone [facility], Clinician Primary Care Provider Unavailable Reason for Visit Reason Comments SKIN LESION Left upper back mole has fal lamonte off, spot mid back possibly removed. Encounter Details Date Type Department Care Team Description 11/14/[address] [facility] [address] IN LESION (Left Dermatology MD Oma upper back mole has [address] fal lamonte off, spot mid [address] back possibly [place], [place] re moved. ) [address] [phone] Social History Tobacco Use Types Packs/Day Years [...] Team Description 08/10/2022 Appointment Gastroenterology Ashly Fortune, PANEL MACHINE SETTER, CLOTH PAINTER [address] [place] [address] (Wo rk) documented as of this encounter [...] Test Analysis Performed At [facility] gist Range Method Time Signature Case Report Surgical Pathology Report ? Case: [id number] ? 11/20/2021 JOB LITHOGRAPHER 3800 Authorizing Provider: ??Ana Brush MD ? Collected: ? 11/14/2021 1111 ? 2:58 PM DERMATO LOGY Ordering Location: ? [facility] 3800 ? Received: ?11/14/2021 1348 ? CDT ? Dermatology ? Pathologist: ? Urmila Arita MD ? Specimen: ?Skin, Right U pper Back ? FINAL A. Skin, Right Upper Back, shave: 2021 JOB LITHOGRAPHER 3800 Electronically DIAGNOSIS - Compound nevus, extending to the edges of the specimen. 2:58 PM DERMATOLOGY signed by CDT Urmila Arita MD on 11/20/2021 at 2:58 PM Clinical Clinical Impression: irritated nevus JOB LITHOGRAPHER 3800 Information 2:58 PM DERMATOLOGY CDT Microscopic Microscopic 11/20/2021 JOB LITHOGRAPHER 3800 Description examination is 2:58 PM DERMATOLOGY performed. CDT Special Stains A portion of the 11/20/2021 JOB LITHOGRAPHER 380 0 technical 2:58 PM DERMATOLOGY staining was CDT performed at [facility], [address] [place] [address]. The professional interpretation was performed at [facility]. Gross A: 11/20/2021 JOB LITHOGRAPHER 3800 Description Received in formalin, labele d with the patient's name and Skin, Right Upper Back is a 8 x 5 x 2 mm shave biopsy of skin. The specimen is marked with camelia ink, bisected, and submitted entirely in one cassette. NW 2:58 PM DERMATOLOGY CDT Embedded 11/20/2021 JOB LITHOGRAPHER 3800 Images 2:58 PM DERMATOLOGY CDT Specimen Anatomical Collection Method Collection Time Receive d Time (Source) Location / / Volume Laterality Skin (Skin) 11/14/2021 11:11 11/14/2021 1:48 AM CDT PM CDT Comment: Clinical Impression: irritated nevus Ana Elder MD LAB PATHOLOGY Performing Organization Address City/State/ZIP Code Phon e Number [facility] 38[address] DERMATOLOGY [address] [place], [place] [address] documented in this encounter Visit Diagnoses Diagnosis Neoplasm of skin ([facility]) - Primary Neoplasm of unspecified nature of bone, soft tissue, and skin documented in this encounter Care Teams Dimension Warehouse Supervisor Relationship Specialty Start Date End Date Victor Manuel, Clinician PCP - General 11/22/18 06/21/22 [address] [place] [address] documented as of this encounter
--- OUTSIDE RECORDS SUMMARY | 2022-07-10 15:04 | XMS_ITS | Encounter Summary ---
:1990 Author Organization [facility] Address [address] [place] [address] Care Team Providers Name Role Phone [facility], Clinician Primary Care Provider Unavailable Reason for Visit Reason Comments Refill omeprazole (PRILOSEC) 20 MG capsule [Pharmacy Med Name: OMEPRAZOLE 20MG CAPSULES] Encounter Details Date Type Department Care Team Description 05/12/2019 Refill [facility] [address] Omari Muhammad , Refill (omeprazole [facility] PROTEOMICS SCIENTISTMATILDA (PRILOSEC) 20 MG capsule [address] [facility] [Pharmacy Med Name: [place] [address] [place], [place] OMEPRAZOLE 20MG [phone] CAPSULES]) [phone] (Wo rk) Social History Tobacco Use Types [...] MG capsule. Pharmacy notified. Omari Muhammad APRN, LARD RENDERER - 05/12/2019 2:17 PM CDT Please call [...] Level: 2.5 mg/dL on 05/03/2018 Powered by [employer], Reference: [id number], 05/12/2019 2:09:16 PM CDT, Pool: Jb Sahni Care Team ([id number]) ERCIAL JOURNEYMAN ELECTRICIAN Interface, Out Couchsurfing Prov Query - 05/12/2019 2:09 PM CDT The following lab order(s) may be associated with the Result Note below: MAGNESIUM Notes Recorded by Chrissie Acharya LPN on 05/03/2018 at 2:07 PM Results letter sent. Chrissie Acharya LPN 05/03/2018, 2:07 PM ------ Notes Recorded by Omari Muhammad APRN, LARD RENDERER on 05/03/2018 at 1:16 PM Juliette, Your electrolyte and magnesium levels are normal. Your vitamin D level is quite low which could be contributing to joint and muscle pain. Please take vitamin D and calcium supplements as we discussed during your visit. Please call for further questions or concerns. Omari Muhammad APRN, LARD RENDERER 05/03/2018, 1:16 PM ERCIAL JOURNEYMAN ELECTRICIAN documented in this encounter Plan of Treatment Upcoming Encounters Date Type Specialty Care Team Description 08/10/2022 Appointment Gastroenterology Ashly Fortune APRN, LARD RENDERER [address] [facility] [address] [place] [address] (Wo rk) documented as of this encounter Visit Diagnoses Diagnosis Current use of proton pump inhibitor - P rimary Gastroesophageal reflux disease, esophag itis presence not specified documented in this encounter Care Teams Blown Film Extrusion Operator Relationship Specialty Start Date End Date Nemesio Rush PCP - General 11/22/18 06/21/22 [address] [facility] [place] [address] documented as of this encounter
--- OUTSIDE RECORDS SUMMARY | 2022-07-10 15:04 | XMS_ITS | Encounter Summary ---
:1990 Author Organization [facility] Address [address] [place] [address] Care Team Providers Name Role Phone Unavailable Primary Care Provider Unavailable Reason for Visit Reason Comments Oral Surgical Services lesion consult, incidental f inding Dental (Routine) - Closed Specialty Diagnoses / Procedures Referred By Contact Refer red To Contact Diagnoses S/P skin biopsy Madison Kirk, DDS [address] [place] [address] Referral ID Status Reason Start Date Expiration Date Visits Requ ested Visits Authorized [id number] Closed 06/04/2017 09/03/2018 1 1 Encounter Details Date Type Department Care Team Description 07/29/2017 Office Visit [facility] Brent Amos, Oral Surgical Services [address] light DDS (lesion consult, [place] [address] incidental finding) [phone] [place], [place] [id number] Social History Tobacco Use Types Packs/Day Years Used Date Smoking Tobacco: Former Smokeless Tobacco: Never Alcohol Use Standard Drinks/Week Comments Yes 0.8 (1 standard drink = 0.6 oz pure alco hol) soc Sex Assigned at Date Recorded Not on file documented as of this encounter Last Filed Vital Signs Vital Sign Reading Time Taken Comments Blood Pressure 119/68 07/29/2017 3:05 PM NEWS AGENT Pulse 75 07/29/2017 3:05 PM NEWS AGENT Temperature - - Respiratory Rate - - Oxygen Saturation 100% 07/29/2017 3:05 PM NEWS AGENT Inhaled Oxygen Concentration - - Weight - - Height - - Body Mass Index - - documented in this encounter Progress Notes Brent Amos DDS - 07/29/2017 3:00 PM CST ORAL [...] note was dictated with the aid of Leadwerks voice recognition software and may contain word substitution or spelling errors. Completed dental procedures in this visit There are no completed dental procedures in this visit. AGENT documented in this encounter Plan of Treatment Upcoming Encounters Date Type Specialty Care Team Description 08/10/2022 Appointment Gastroenterology Ashly Fortune, DIRECTOR OF CONSTRUCTION, FLATWORK ASSEMBLER [address] [place] [address] (Wo rk) documented as of this encounter Visit Diagnoses Diagnosis Fibroma - Primary Other benign neoplasm of connective and other soft tissue of unspecified site documented in this encounter
--- OUTSIDE RECORDS SUMMARY | 2022-07-10 15:05 | XMS_ITS | Encounter Summary ---
:1990 Author Organization [employer] Address [address] [place] [address] Care Team Providers Name Role Phone Unavailable Primary Care Provider Unavailable Reason for Visit Reason Comments Refill Encounter Details Date Type Department Care Team Description 11/09/2016 Refill [facility] 435 [facility] Oma Bower, Refill [facility] PARTS PROCESSOR, MARINE PROPULSION TECHNICIAN [address] [place] [address] [place] [address] [phone] (Wo rk) Social History Tobacco Use Types [...] CDT Medication was refilled on 11/02/16. Called [facility] pharmacy,spoke to a pharmacy staff member who affirmed that it was indeed refilled on 11/02/16 and to disregard the request. Junei Acuna RN 11/09/2016, 2:33 PM documented in this encounter Plan of Treatment Upcoming Encounters Date Type Specialty Care Team Description 08/10/2022 Appointment Gastroenterology Ashly Fortune, PARTS PROCESSOR, MARINE PROPULSION TECHNICIAN [address] [facility] [address] [place], [place] [id number] (Wo rk) documented as of this encounter Visit Diagnoses Not on filedocumented in this encounter
--- OUTSIDE RECORDS SUMMARY | 2022-07-10 15:05 | XMS_ITS | Encounter Summary ---
:1990 Author Organization [employer] Address [address] [place] [address] Care Team Providers Name Role Phone Unavailable Primary Care Provider Unavailable Encounter Details Date Type Department Care Team Description 08/10/2016 Lab Visit [facility] Gastroesophageal reflux [address] disease, [place] [address] not specified [phone] Social History Tobacco Use Types Packs/Day Years Used Date Smoking Tobacco: Former Smokeless Tobacco: Never Comments: only smoked occ Alcohol Use Standard Drinks/Week Comments Yes 0.8 (1 standard drink = 0.6 oz pure alco hol) soc Sex Assigned at Date Recorded Not on file documented as of this encounter Progress Notes Terri Knott RN - 08/11/2016 3:52 PM RETAIL ROUTE SUPERVISOR Quick Note: Result letter mailed to patient. Terri Knott LPN 08/11/2016, 3:52 PM IL ROUTE SUPERVISOR Lorrie Bhat APRN, MATILDA - 08/11/2016 2:37 PM RETAIL ROUTE SUPERVISOR Quick Note: H pylori stool test is negative. Please continue to follow the recommendations as discussed in the clinic. Lorrie Ferrari APRN, MATILDA IL ROUTE SUPERVISOR documented in this encounter Plan of Treatment Upcoming Encounters Date Type Specialty Care Team Description 08/10/2022 Appointment Gastroenterology Ashly Fortune, EARLY CHILDHOOD, OTTER TRAWLER [place] [address] [facility] [address] [place] [address] (Wo rk) documented as of this encounter Procedures Procedure Name Priority Date/Time Associated Diagnosis Comme nts H. PYLORI ANTIGEN Routine 08/10/2016 8:26 Gastroesophageal ref lux Results for this FECES AM RETAIL ROUTE SUPERVISOR disease, esophagitis procedu re are in presence not specified the r esults section. documented in this encounter Results H. Pylori Antigen Feces (08/10/2016 8:26 AM RETAIL ROUTE SUPERVISOR) Component Value Ref Test Analysis Performed At [facility] Range Method Time Signature H Pylori [facility] Result LABORATORIES H Pylori (NOTE) [facility] Result [facility] PYLORI AG, EIA, STOOL ?? LABORATORIES ?? MICRO NUMBER: ?[id number] TEST STATUS: ? FINAL SPECIMEN SOURCE: ?? STOOL SPECIMEN QUALITY: ??ADEQUATE RESULT: ?Not Detected ?Antimicrobials, proton pump in hibitors, and ?bismuth preparations inhibit H . pylori and ?ingestion up to two week s prior to testing may ?cause false negative results. If clinically ?indicated the test shoul d be repeated on a new ?specimen obtained two weeks after discontinuing ?treatment. Test performed at [facility] [address] ??[id number] Director: MELVA SOTO MD Specimen Anatomical Collection Method Collection Time Receive d Time (Source) Location / / Volume Laterality Stool specimen 08/10/2016 8:26 AM 017 8:30 (specimen) RETAIL ROUTE SUPERVISOR AM RETAIL ROUTE SUPERVISOR Lorrie Bower APRN, MATILDA LAB_1 Performing Organization Address City/State/ZIP Code Phon e Number [facility] [phone] documented in this encounter Visit Diagnoses Diagnosis Gastroesophageal reflux disease, esophag itis presence not specified documented in this encounter
--- OUTSIDE RECORDS SUMMARY | 2022-07-10 15:05 | XMS_ITS | Encounter Summary ---
:1990 Author Organization [facility] Address [address] [place] [address] Care Team Providers Name Role Phone Unavailable Primary Care Provider Unavailable Reason for Referral Procedure/Equipment (Routine) - Closed Specialty Diagnoses / Procedures Referred By Contact Refer red To Contact Diagnoses Gastroesophageal reflux disease, esophagitis presence not specified Lorrie Bhat APRN, IRON ERECTOR [address] [place] [address] Referral ID Status Reason Start Date Expiration Date Visits Requ ested Visits Authorized [id number] Closed 08/06/2016 11/05/2017 1 1 Scheduling Instructions Your provider has recommended an appoint ment with [facility]. You may call [phone] to schedule yo ur appointment. If you prefer, a lisw will contact you within the next 3 in days to assist you in setting up this appointment. We suggest you call your [employer] insurance company about your coverage and benefits for this appointment. ENT CARE TECHNICIAN INSTRUCTOR Reason for Visit Reason Comments Revisit Encounter Details Date Type Department Care Team Description 08/06/2016 Office Visit [facility] Mian Bhat oesophageal reflux [address] [facility] Lorrie Soto APRN, diseas e, esophagitis Clinic IRON ERECTOR presence not specified [address] (Primary Dx) [place] [address] [place], [place] [phone] [address] Social History Tobacco Use Types Packs/Day Years [...] Blood Pressure 105/67 08/06/2016 8:37 AM PATIENT CARE TECHNICIAN INSTRUCTOR Pulse 78 08/06/2016 8:37 AM PATIENT CARE TECHNICIAN INSTRUCTOR Temperature 36.7 ??C (98 ??F) 08/06/2016 8:37 AM PATIENT CARE TECHNICIAN INSTRUCTOR Respiratory Rate - - Oxygen Saturation - - Inhaled Oxygen Concentration - - Weight 83 kg (183 lb) 08/06/2016 8:37 AM PATIENT CARE TECHNICIAN INSTRUCTOR Height 154.9 cm (5' 1) 08/06/2016 8:37 AM PATIENT CARE TECHNICIAN INSTRUCTOR Body Mass Index 34.58 08/06/2016 8:37 AM PATIENT CARE TECHNICIAN INSTRUCTOR documented in this encounter Patient Instructions Patient InstructionsLorrie Bhat APRN, CNP - 08/06/2016 9:03 AM PATIENT CARE TECHNICIAN INSTRUCTOR Stop Zantac Start Omeprazole---a prescription was sent to your pharmacy Stool test--start Omeprazole after you collect stool specimen Upper endoscopy if H pylori negative and symptoms persist Your follow up appointment with Dr. Stone Palacio is scheduled for November 06 at 11:00 am. Nothing to eat or drink after midnight. Must have a sprinkler truck driver to drive you home. Follow up Your follow up appointment with Lorrie Ferrari NP is scheduled for November 13 at 8:20 am. If you have any questions or concerns, please call [facility] at [phone]. 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 Lorrie Ferrari APRN, CNP 08/06/2016, 9:06 AM ENT CARE TECHNICIAN INSTRUCTOR documented in this encounter Plan of Treatment Upcoming Encounters Date Type Specialty Care Team Description 08/10/2022 Appointment Gastroenterology Ashly Fortune APRN, CNP [address] [facility] [address] [place] [address] (Wo rk) Scheduled Referrals Name Type Priority Associated Diagnoses Order S chedule EGD (Endoscopy) Referral Routine Gastroesophageal reflux O rdered: 08/06/2016 disease, esophagitis presenc e not specified documented as of this encounter Results H. Pylori Antigen Feces (08/10/2016 8:26 AM PATIENT CARE TECHNICIAN INSTRUCTOR) Component Value Ref Test Analysis Performed At [facility] Range Method Time Signature H Pylori [facility] Result LABORATORIES H Pylori (NOTE) [facility] Result [facility] PYLORI AG, EIA, STOOL ?? LABORATORIES ?? MICRO NUMBER: ?[id number] TEST STATUS: ? FINAL SPECIMEN SOURCE: ?? STOOL SPECIMEN QUALITY: ??ADEQUATE RESULT: ?Not Detected ?Antimicrobials, proton pump in hibitors, and ?bismuth preparations inhibit H . pylori and ?ingestion up to two week s prior to testing may ?cause false negative results. If clinically ?indicated the test shoul d be repeated on a new ?specimen obtained two weeks after discontinuing ?treatment. Test performed at [facility] [address] ??[phone] Director: MELVA SOTO MD Specimen Anatomical Collection Method Collection Time Receive d Time (Source) Location / / Volume Laterality Stool specimen 08/10/2016 8:26 AM 017 8:30 (specimen) PATIENT CARE TECHNICIAN INSTRUCTOR AM PATIENT CARE TECHNICIAN INSTRUCTOR Lorrie Bower APRN, IRON ERECTOR LAB_1 Performing Organization Address City/State/ZIP Code Phon e Number [facility] [phone] documented in this encounter Visit Diagnoses Diagnosis Gastroesophageal reflux disease, esophag itis presence not specified - Primary documented in this encounter
--- OUTSIDE RECORDS SUMMARY | 2022-07-10 15:05 | XMS_ITS | Encounter Summary ---
:1990 Author Organization [facility] Address [address] [place] [address] Care Team Providers Name Role Phone Unavailable Primary Care Provider Unavailable Reason for Visit Reason Comments Refill ranitidine Encounter Details Date Type Department Care Team Description 11/21/2016 Refill [facility] [address] Elaine Matute MD Refill (ranitidine) [facility] [address] [address] [place] [address] [place] [address] [phone] Social History Tobacco Use Types Packs/Day Years [...] at bedtime if needed (unchanged) Powered by [employer], Reference: [id number], 11/21/2016 5:42:30 PM CDT, Pool: TAMEKA REFILL RN ([id number]) documented in this encounter Plan of Treatment Upcoming Encounters Date Type Specialty Care Team Description 08/10/2022 Appointment Gastroenterology Ashly Fortune, CLEANING MANAGER, SUBSTATION DESIGNER [address] [place], [place] [address] (Wo rk) documented as of this encounter Visit Diagnoses Not on filedocumented in this encounter
--- OUTSIDE RECORDS SUMMARY | 2022-07-10 15:05 | XMS_ITS | Encounter Summary ---
:1990 Author Organization [employer] Address [address] [place] [address] Care Team Providers Name Role Phone Unavailable Primary Care Provider Unavailable Reason for Visit Reason Comments Refill raNITIdine (ZANTAC) 150 MG t ablet [Pharmacy Med Name: RANITIDINE 150 MG TABLET] Encounter Details Date Type Department Care Team Description 09/30/2016 [facility] 435 Elaine Shultz MD Refill (raNITIdine [facility] [address] JC SALDANA (ZANTAC) 150 MG tablet 435 [place] [address] [Pharmacy Med Name: [place] [address] RANITIDINE 150 MG [phone] TABLET]) Social History Tobacco Use Types Packs/Day [...] CST per standing order Edith Ivan RN FACTURING CLERK Interface, Out Surescripts Prov Query - 09/30/2016 [...] at bedtime if needed (unchanged) Powered by [employer], Reference: [id number], 09/30/2016 1:40:51 AM MANUFACTURING CLERK, Pool: CN REFILL RN ([id number]) FACTURING CLERK documented in this encounter Plan of Treatment Upcoming Encounters Date Type Specialty Care Team Description 08/10/2022 Appointment Gastroenterology Ashly Fortune, METAL FILER, NEONATAL ICU COORDINATOR [address] [facility] [address] [place], [place] [address] (Wo rk) documented as of this encounter Visit Diagnoses Not on filedocumented in this encounter
--- OUTSIDE RECORDS SUMMARY | 2022-07-10 15:05 | XMS_ITS | Encounter Summary ---
:1990 Author Organization [email or web address] Address [address] [place] [address] Care Team Providers Name Role Phone Unavailable Primary Care Provider Unavailable Reason for Visit Reason Onset Date Comments Refill 01/28/2017 OMEPRAZOLE Encounter Details Date Type Department Care Team Description 01/28/2017 [facility]ill [facility] [address] (OMEPRAZOLE) [facility] Lorrie Soto, NURSES' ASSOCIATION EXECUTIVE DIRECTOR, FREEZING ROOM WORKER [address] [place] [address] [place], [place] [phone] (Wo rk) Social History Tobacco Use Types [...] for Omeprazole 20mg has been approved through [employer] insurance. Approval is granted for/until February 11, 2018 with approval number n/a. Patient has been contacted to inform them of PA approval and to determine their choice for receiving the prescription. Left voicemail message with patient to inform them of PA approval on 02/16/17. Kiley Ash, RN - 01/28/2017 3:17 PM CDT Refilled [...] Team Description 08/10/2022 Appointment Gastroenterology Ashly Fortune, NURSES' ASSOCIATION EXECUTIVE DIRECTOR, FREEZING ROOM WORKER [address] [facility] [address] [place] [address] (Wo rk) documented as of this encounter Visit Diagnoses Not on filedocumented in this encounter
--- OUTSIDE RECORDS SUMMARY | 2022-07-10 15:05 | XMS_ITS | Encounter Summary ---
:1990 Author Organization [employer] Address [address] [place] [address] Care Team Providers Name Role Phone Unavailable Primary Care Provider Unavailable Reason for Visit Reason Comments ROUTINE HEALTH MAINTENANCE Encounter Details Date Type Department Care Team Description 03/26/2017 Office Visit [facility] Chaya Bautista P [facility] (Primary Dx); Obstetrics and MD Family planning, subdermal contraceptive checking/reinsertion/removal Gynecology [address] [place] [address] Social History Tobacco Use Types Packs/Day Years [...] can you learn more? 1. Go to [employer] or [employer]OurHistree. 2. Enter F276 in the search box. Current as of: October 15, 2016 Content Version: 11.3 ?? [id number] [employer]. Well Visit, Ages 18 to 50: [...] older than 45 and are -Citizen Of [place] or have a father or brother who got prostatecancer when he was younger than 65. When should you call for help? Watch closely for changes in your health, and be sure to contact your doctor if you have any problems or symptoms that concern you. Where can you learn more? 1. Go to [employer] or [employer]VoloMetrixrary. 2. Enter P072 in the search box. Current as of: February 18, 2016 Content Version: 11.3 ?? [phone] [employer]. After insertion of Nexplanon, you might [...] you wish. Please call your clinic at [facility] Obstetrics And Gynecology [address] [place] [address] Dept: [phone] Loc: [phone] if you notice signs of infection or [...] Team Description 08/10/2022 Appointment Gastroenterology Ashly Fortune, BODY CARE MANAGER, BELTING CUTTER [address] [place] [address] (Wo rk) documented as of this encounter [...] Component Value Ref Test Analysis Performed At [employer] Method Time Signature HPV RESULT Negative NEG [facility] Comments (NOTE) [facility] The Jennifer HPV Test is a qualitative in vitro test for the detection LABORATORIES of Human Papillomavirus in [facility] patient specimens. The t est utilizes amplification of target DNA by Polymerase Chain Golf ction (PCR) and nucleic acid hybridization for the detection of 14 high-risk (HR) HPV types. The assay tests for high risk type s 16, 18, 31, 33, 35, 39, 45, 51, 52, 56, 58, 59, 66 and 68. Testing performed at: This test was developed and its performance characteristics determined by [facility]. ??It has not been cleared or [...] PM 7 4:01 CDT PM CDT Narrative [facility] - 04/09/2017 8:20 AM C DT Performed at [facility] , [address] [place] [address] Chaya Bautista MD LAB_1 Performing Organization Address City/State/ZIP Code Phon e Number [facility] [phone] Pap Test, Routine (03/26/2017 3:58 PM CDT) Component Value Ref Test Analysis [facility]formed [facility] Method Time Signature Cytology, (NOTE) [facility] Pap Upper Cutter Out Cytology Report LABORATORI ES Patient Name: JULIETTE [...] ?? Microscopic Description Microscopic examination is performed. [facility] Department of Pathology [address] [place] [address] Specimen Anatomical Collection Method Collection Time Receive d Time (Source) Location / / Volume Laterality 03/26/2017 3:58 PM 7 CDT 12:00 PM CDT Chaya Bautista MD LAB_1 Performing Organization Address City/State/ZIP Code Phon e Number [facility] [phone] documented in this encounter Visit Diagnoses Diagnosis [...]
--- OUTSIDE RECORDS SUMMARY | 2022-07-10 15:05 | XMS_ITS | Encounter Summary ---
:1990 Author Organization [employer] Address [address] [place] [address] Care Team Providers Name Role Phone Needs Pcp, Assignment Primary Care Provider Encounter Details Date Type [...] as of this encounter Plan of Treatment Upcoming Encounters Date Type Specialty Care Team Description 08/10/2022 Appointment Gastroenterology Ashly Fortune, TRADEMARK AFFIXER, RECRUITER MANAGER [address] [place], [place] [phone] (Wo rk) documented as of this encounter Visit Diagnoses Not on filedocumented in this encounter Care Teams Monkey Trainer Relationship Specialty Start Date End Date Needs Pcp, Assignment PCP - General 06/22/22 [place], [place] [phone] documented as of this encounter
--- OUTSIDE RECORDS SUMMARY | 2022-07-10 15:05 | XMS_ITS | Encounter Summary ---
:1990 Author Organization [employer] Address [address] [place] [address] Care Team Providers Name Role Phone Unavailable Primary Care Provider Unavailable Encounter Details Date Type Department Care Team Description 04/19/2017 Lab Visit [facility] Undiffer entiated connective Laboratory tissue disease (HRC) [address] [place], [place] [phone] Social History Tobacco Use Types Packs/Day Years [...] Team Description 08/10/2022 Appointment Gastroenterology Ashly Fortune, SECTION CUTTER, STAINED GLASS GLAZIER [address] [facility] [address] [place], [place] [phone] (Wo rk) documented as of this encounter Procedures Procedure Name Priority Date/Time Associated Diagnosis Comme nts CREATININE / GFR Routine 04/19/2017 8:54 Undifferentiated Resu lts for this AM CDT connective tissue procedure are in disease (HRC) the results section. COMPLETE BLOOD Routine 04/19/2017 [...] City/State/ZIP Code Phon e Number [facility] [phone] (ABNORMAL) C-Reactive Protein (04/19/2017 8:54 AM CDT) Patholo gist Method Time Signature C-Reactive 1.2 (H) 0.0 - 0.7 [facility] mg/dL [facility]ATORIES Comment: Note: results are expressed in mg/dL. Specimen Anatomical Collection Method Collection Time Receive d Time (Source) Location / / Volume Laterality 04/19/2017 8:54 AM 7 8:57 CDT AM CDT Narrative [facility] - 04/19/2017 12:48 PM CDT Performed at [facility], [address] [place] [address] ??[address] Orlando Mckinley MD LAB_1 Performing Organization Address City/[facility]/ZIP Code Phon e Number [facility] [phone] (ABNORMAL) ESR (04/19/2017 8:54 AM CDT) P athologist Signature ESR 42 (H) 0 - 20 [facility] mm/hr Specimen Anatomical Collection Method Collection Time Receive d Time (Source) Location / / Volume Laterality 04/19/2017 8:54 AM 7 8:57 CDT AM CDT Narrative [facility] - 04/19/2017 3:14 PM C DT Performed at [facility], [address] [place] [address] ??[address] Orlando Mckinley MD LAB_1 Performing Organization Address City/[facility]/ZIP Code Phon e Number [facility] [phone] (ABNORMAL) UA Micro If (04/19/2017 8:54 AM CDT) Patholo gist Method Time Signature Urine Color Yellow [...] Orlando Mckinley MD LAB_1 Performing Organization Address City/[facility]/ZIP Code Phon e Number [facility] [phone] Creatinine / GFR (04/19/2017 8:54 AM CDT) [...] - 04/19/2017 12:48 PM CDT Performed at [facility], [address] [place] [address] ??[address] Orlando Mckinley MD LAB_1 Performing Organization Address City/[facility]/ZIP Code Phon e Number [facility] [phone] Complete Blood Count-No Diff (04/19/2017 8:54 AM CDT) athologist Signature WBC 6.9 4.0 - 11.0 [...] 04/19/2017 1:12 PM C DT Performed at [facility], [address] [place] [address] ??[address] Orlando Mckinley MD LAB_1 Performing Organization Address City/[facility]/ZIP Code Phon e Number [facility] [phone] documented in this encounter Visit Diagnoses Diagnosis Undifferentiated connective tissue disea se (HRC) Unspecified diffuse connective tissue di sease documented in this encounter
--- OUTSIDE RECORDS SUMMARY | 2022-07-10 15:05 | XMS_ITS | Encounter Summary ---
:1990 Author Organization [facility] Address [address] [place] [address] Care Team Providers Name Role Phone Unavailable Primary Care Provider Unavailable Reason for Visit Procedure/Equipment (Routine) - Closed Specialty Diagnoses / Procedures Referred By Contact Refer red To Contact Diagnoses Gastroesophageal reflux disease, esophagitis presence not specified Lorrie Bhat, PRIVATE TUTORS AND TEACHERS, VISUAL AND STOCK ASSOCIATE [address] [place] [address] Referral ID Status Reason Start Date Expiration Date Visits Requ ested Visits Authorized [id number] Closed 08/06/2016 11/05/2017 1 1 Encounter Details Date Type Department Care Team Description 11/06/2016 Procedure Visit [facility] Specialty Christina Palacio, Center Gastroenterol tomer AKINS 435 [facility] [address] [place] [address] [address] [place], [place] [address] Social History Tobacco Use Types Packs/Day [...] - documented in this encounter Progress Notes Evan Palacio MD - 11/10/2016 8:46 AM CDT Quick Note: Mild gastritis (inflammation of the stomach). No evidence for H.pylori infection. Normal esophageal and duodenal biopsies, no evidence for eosinophilic esophagitis or celiac disease Rec: - Continue present meds - follow other instructions given at time of endoscopy - RTC with PMD as scheduled Evan Palacio MD 11/10/2016, 8:45 AM Evan Palacio MD - 11/06/2016 12:25 PM CDT [...] Plan: EGD under moderate sedation Supervising provider: Evan Palacio MD Potential risks and complications of procedure have been discussed with patient. Evan Palacio MD 11/06/2016, 12:25 PM documented in this encounter Plan of Treatment Upcoming Encounters Date Type Specialty Care Team Description 08/10/2022 Appointment Gastroenterology Ashly Fortune, PRIVATE TUTORS AND TEACHERS, VISUAL AND STOCK ASSOCIATE [address] [place] [address] (Wo rk) documented as of this encounter [...] in this encounter Results GI UPPER ENDOSCOPY [[id number]] (11/06/2016 12:05 PM CDT) Specimen (Source) Anatomical Collection Method Collection Time Re ceived Time Location / / Volume Laterality 11/06/2016 12:05 PM CDT Narrative [facility] ([facility]) - 11/06/2016 12:45 PM CDT Instrument Name: 352 Indications: ? Dyspepsia, Dysp hagia, Heartburn, Diarrhea, recent ? colonosco py unrevealing. Providers: ? Evan king MD, Billy Martinez RN, Wilian Delatorre. [...] Code(s): ?? --- Professional - -- ? 20883, Es ophagogastroduodenoscopy, flexible, ? transoral ; with biopsy, single or multiple Diagnosis Code(s): ?? --- Professional - -- ? K21.0, Ga stro-esophageal reflux disease with ? esophagit is ? R10.13, E pigastric pain ? R13.10, D ysphagia, unspecified ? R12, Hear tburn ? R19.7, Di arrhea, unspecified CPT copyright 2016 [employer]. All rights reserved. The codes documented in this report are preliminary and upon color laboratory technician review may be revised to meet current complianc e requirements. Attending Participation: Evan Palacio MD 11/06/2016 12:45:19 PM Number of Addenda: 0 Note Initiated On: 11/06/2016 12:05 PM Procedure Note Evan Palacio MD - 11/06/2016Formatt ing of this note might be different from the original. Instrument Name: 352 Indications: Dyspepsia, Dysphagia, Heart burn, Diarrhea, recent colonoscopy unrevealing. Providers: Evan Palacio MD, Billy Martinez RN, Wilian Hernandez [...] pathology results. Procedure Code(s): --- Professional --- 47334, Esophagogastroduodenoscopy, flex ible, transoral; with biopsy, single or multi ple Diagnosis Code(s): --- Professional --- K21.0, Gastro-esophageal reflux disease with esophagitis R10.13, Epigastric pain R13.10, Dysphagia, unspecified R12, Heartburn R19.7, Diarrhea, unspecified CPT copyright 2016 [employer]. All rights reserved. The codes documented in this report are preliminary and upon color laboratory technician review may be revised to meet current complianc e requirements. Attending Participation: Evan Palacio MD 11/06/2016 12:45:19 PM Number of Addenda: 0 Note Initiated On: 11/06/2016 12:05 PM Evan Palacio MD D[facility]ESTIVE CARE Performing Organization Address City/State/ZIP Code Phon e Number [facility] ([facility]) [facility] ([facility]) [place], [place] Surgical Path - Endoscopy (11/06/2016 7:00 AM CDT) [facility] gist Method Time Signature Histology (NOTE) [facility] Surgical Final Report HOSPITAL Patient Name: JULIETTE GAMING Taken: 11/06/2016 Received: 11/06/2016 Reported: 11/09/2016 Physician(s): EVAN PALAICO ? Final Pathologic Diagnosis A. ??Duodenum, third [...] hours, and not longer than 72 hours. mdc2/11/06/2016 Microscopic Description Microscopic examination performed. mrs/11/09/[address] [facility] Department of Pathology [address] [place], [place] ??[address] Specimen Anatomical Collection Method Collection Time Receive d Time (Source) Location / / Volume Laterality ESOPHAGEAL 11/06/2016 7:00 AM 7 3:21 STRUCTURE / CDT PM CDT Unknown STOMACH STRUCTURE 11/06/2016 7:00 AM 04/0 01/2017 3:21 / Unknown CDT PM CDT ESOPHAGEAL 11/06/2016 7:00 AM 7 3:21 STRUCTURE / CDT PM CDT Unknown Evan Palacio MD LAB_1 Performing Organization Address City/State/ZIP Code Phon e Number [phone] [phone] documented in this encounter Visit Diagnoses Diagnosis Dysphagia, unspecified type [R13.10] - P rimary documented in this encounter Administered Medications Inactive Administered Medications - up to 3 most recent administrations Medication Order MAR Action Action Date Dose Rate Site otckqtkm-agnqotrbge-czprzocigr Given 11/06/2016 12:30 PM CDT 2 S prays (EXACTACAIN,CETACAINE) 2-2-14 % spray 1-2 Franklin 1-2 Franklin, Topical, PRN WITH PROCEDURES, Pain, Starting on [...]
--- OUTSIDE RECORDS SUMMARY | 2022-07-10 15:05 | XMS_ITS | Encounter Summary ---
:1990 Author Organization [facility] Address [address] [place] [address] Care Team Providers Name Role Phone Unavailable Primary Care Provider Unavailable Reason for Referral Consult/Transfer Care (Routine) - Closed Specialty Diagnoses / Procedures Referred By Contact Refer red To Contact Diagnoses Encounter for long-term (current) [place] [address] [place] [address] Referral ID Status Reason Start Date Expiration Date Visits Requ ested Visits Authorized [id number] Closed 03/19/2017 04/19/2017 1 1 Scheduling Instructions Your provider has recommended you to fol low up with your Primary Flat Grinder Operator. If you are currently seeing a [facility] provider for your primary care needs, a construction scheduler will contact you within the az xt 3 business days to assist you in setting up this appointment. To schedule your ap pointment you may call [phone]. We suggest you call your [employer]Noise company about your coverage and benefits for this service. Encounter Details Date Type Department Care Team Description 03/19/2017 Refill Order [facility] Eduarda Shultz MD [facility] [address] [address] [address] [facility] [address] [place] [address] [address] [address] [phone] Social History Tobacco Use Types Packs/Day Years Used Date Smoking Tobacco: Former Smokeless Tobacco: Never Comments: only smoked occ Alcohol Use Standard Drinks/Week Comments Yes 0.8 (1 standard drink = 0.6 oz pure alco hol) soc Sex Assigned at Date Recorded Not on file documented as of this encounter Nursing Notes Interface, Out [employer]Stream Query - 03/19/2017 9:12 AM CDT SCHEDULE [...] You can schedule your appointment online at [employer] or by calling the appointment center at the phone number listed above. Thank you for choosing [facility]. Lissy Renner RN [facility] Refill [facility] Nurses Powered by [address], Reference: [id number], 03/19/2017 9:12:50 AM CDT, Pool: TAMEKA BATISTA RN ([id number]) documented in this encounter Plan of Treatment Upcoming Encounters Date Type Specialty Care Team Description 08/10/2022 Appointment Gastroenterology Ashly Fortune, FINISHER MAP AND CHART, COMPRESSED YEAST SUPERVISOR [address] [place] [address] (Wo rk) Scheduled Referrals Name Type Priority Associated Diagnoses Order S [facility] Primary Care Follow-Up Referral Routine Encounter for long -term Ordered: 03/19/2017 (current) use of medications documented as of this encounter Visit Diagnoses Diagnosis Encounter for long-term (current) use of medications - Primary Encounter for long-term (current) use of other medications documented in this encounter
--- OUTSIDE RECORDS SUMMARY | 2022-07-10 15:05 | XMS_ITS | Encounter Summary ---
:1990 Author Organization [employer] Address [address] [place] [address] Care Team Providers Name Role Phone Unavailable Primary Care Provider Unavailable Reason for Visit Reason Comments Refill fluticasone (FLONASE) 50 MCG /ACT nasal solution [Pharmacy Med Name: FLUTICASONE PROP 50 MCG SPRA Y] Encounter Details Date Type Department Care Team Description 08/31/2016 Refill [place] Marvin Escobar, Ryliei ll (fluticasone Practice PATIENT CENTERED CARE SPECIALIST, DNP (FLONASE) 50 MCG/ACT [address] nasal solution [place], [place] [address] [place] [address] [Pharmacy Med Name: [phone] (Wo rk) FLUTICASONE PROP 50 MCG SPRAY]) [...] CST per standing order Zandra Bartholomew RN LING MACHINE OPERATOR Interface, Out SuperGen Prov Query - 08/31/2016 5:53 PM CST [...] into both nostrils daily. (unchanged) Powered by [employer], Reference: [id number], 08/31/2016 5:53:22 PM LEVELING MACHINE OPERATOR, Pool: TAMEKA BATISTA RN ([id number]) LING MACHINE OPERATOR documented in this encounter Plan of Treatment Upcoming Encounters Date Type Specialty Care Team Description 08/10/2022 Appointment Gastroenterology Ashly Fortune, PATIENT CENTERED CARE SPECIALIST, LIABILITY CLAIMS MANAGER [address] [place], [place] [address] (Wo rk) documented as of this encounter Visit Diagnoses Not on filedocumented in this encounter
--- OUTSIDE RECORDS SUMMARY | 2022-07-10 15:05 | XMS_ITS | Encounter Summary ---
:1990 Author Organization [employer] Address [address] [place] [address] Care Team Providers Name Role Phone Needs Pcp, Assignment Primary Care Provider Encounter Details Date Type Department Care Team Description 09/30/2016 Refill Order [facility] [address] Elaine Shultz MD [facility] [address] [facility] [place] [place] [address] [place] [address] [phone] Social History Tobacco Use Types Packs/Day Years [...] pt. [place] CMA 09/30/2016, 7:52 AM E CHANGER documented in this encounter Plan of Treatment Upcoming Encounters Date Type Specialty Care Team Description 08/10/2022 Appointment Gastroenterology Ashly Fortune, TYPEWRITER TESTER, PET SUPPLIES SALESPERSON [address] [place] [address] (Wo rk) documented as of this encounter Visit Diagnoses Diagnosis Encounter for long-term (current) use of medications - Primary Encounter for long-term (current) use of other medications documented in this encounter Care Teams Subsea Engineer Relationship Specialty Start Date End Date Needs Pcp, Assignment PCP - General 06/22/22 NATALIE OCHOA [place], [place] [address] documented as of this encounter
--- OUTSIDE RECORDS SUMMARY | 2022-07-10 15:05 | XMS_ITS | Encounter Summary ---
:1990 Author Organization [employer] Address [address] [place] [address] Care Team Providers Name Role Phone Unavailable Primary Care Provider Unavailable Reason for Visit Reason Comments Refill hydroxychloroquine (PLAQUENI L) 200 MG tablet [Pharmacy Med Name: HYDROXYCHLOROQUINE 200 MG TA B] Encounter Details Date Type Department Care Team Description 03/01/2017 Refill [facility] 401 Orlando Mckinley (hydroxychloroquine [facility] MD Charles (PLAQUENIL) 200 MG tablet 401 [facility] [Pharmacy Med Name: [place] [address] HYDROXYCHLOROQUINE 200 MG [phone] TAB]) Social History Tobacco Use Types Packs/Day [...] tab by mouth daily. (changed) Powered by [employer], Reference: [id number], 03/01/2017 12:38:52 AM CDT, Pool: Arlen Perry Care Team ([id number]) documented in this encounter Plan of Treatment Upcoming Encounters Date Type Specialty Care Team Description 08/10/2022 Appointment Gastroenterology Ashly Fortune, BRAND LEAD, SALVATIONIST [address] [place], [place] [address] (Wo rk) documented as of this encounter Visit Diagnoses Not on filedocumented in this encounter
--- OUTSIDE RECORDS SUMMARY | 2022-07-10 15:05 | XMS_ITS | Encounter Summary ---
:1990 Author Organization [employer] Address [address] [place] [address] Care Team Providers Name Role Phone Unavailable Primary Care Provider Unavailable Reason for Visit Reason Comments Revisit Encounter Details Date Type Department Care Team Description 11/13/2016 [facility] Visit [facility] Mian Bhat oesophageal reflux [address] [facility] Lorrie Soto APRN, diseas e with esophagitis Clinic EXTRACT MIXER (Primary Dx) [address] [place] [address] [place], [place] [phone] [address] Social History Tobacco Use Types Packs/Day Years [...] couple weeks Call with questions or concerns [phone] option #3. Lorrie Ferrari APRN, CNP documented [...] k/ul PMN/Band 69 % Lymph 24 % [place] 6 % Eos 1 % Baso 0 % PMN Absolute 5.9 1.8 - 7.7 k/ul Lymph Absolute 2.1 1.0 - 4.8 k/ul [place] Absolute 0.5 0.1 - 0.7 k/ul Eos [...] Description 08/10/2022 Appointment Gastroenterology Ashly Fortune APRN, EXTRACT MIXER [address] [facility] [address] [place] [address] (Wo rk) documented as of this encounter Visit Diagnoses Diagnosis Gastroesophageal reflux disease with eso phagitis - Primary documented in this encounter
--- OUTSIDE RECORDS SUMMARY | 2022-07-10 15:06 | XMS_ITS | Encounter Summary ---
:1990 Author Organization [facility] Address [address] [place] [address] Care Team Providers Name Role Phone Unavailable Primary Care Provider Unavailable Reason for Visit Reason Comments Refill hydroxychloroquine (AKA PLAQ UENIL) 200 MG tablet [Pharmacy Med Name: HYDROXYCHLOROQUINE 200 MG TA B] Encounter Details Date Type Department Care Team Description 02/27/2016 Refill [facility] 401 Reym[address] Nelson (hydroxychloroquine Rheumatology [facility] MD Letty (AKA PLAQUENIL) [address] tablet [[place]: [place] [address] [place] HYDROXYCHLOROQUINE 200 MG [phone] TAB]) Social History Tobacco Use Types Packs/Day [...] a day. (changed but equivalent) Powered by [employer], Reference: [id number], 02/27/2016 1:15:49 AM CDT, Pool: Leslie MariscalKim ([id number]) documented in this encounter Plan of Treatment Upcoming Encounters Date Type Specialty Care Team Description 08/10/2022 Appointment Gastroenterology Ashly Fortune, TELEPHONE INTERVIEWER, E COMMERCE MARKETING MANAGER [address] [facility] [address] [place], [place] [address] (Wo rk) documented as of this encounter Visit Diagnoses Not on filedocumented in this encounter
--- OUTSIDE RECORDS SUMMARY | 2022-07-10 15:06 | XMS_ITS | Encounter Summary ---
:1990 Author Organization [facility] Address [address] [place] [address] Care Team Providers Name Role Phone Unavailable Primary Care Provider Unavailable Reason for Referral Procedure/Equipment (Routine) - Closed Specialty Diagnoses / Procedures Referred By Contact Refer red To Contact Caio Bhat APRN, MATILDA [address] [place] [address] Referral ID Status Reason Start Date Expiration Date Visits Requ ested Visits Authorized [id number] Closed 05/01/2014 07/31/2015 1 1 Scheduling Instructions Your provider has recommended an appoint ment with [facility]. You may call [phone] to schedule yo ur appointment. If you prefer, a museum service scheduler will contact you within the next 3 in days to assist you in setting up this appointment. Reason for Visit Reason Onset Date Comments RESULTS, TEST 04/26/2014 Encounter Details Date Type Department Care Team Description 04/26/2014 Telephone [facility] Oma Jaramillo RESULTS, TEST [facility] CISCO Soto, CHEMICAL PROCESS EQUIPMENT OPERATOR [address] [place] [address] [place] [address] [phone] (Wo rk) Social History Tobacco Use Types [...] like it filled at our [facility]??? pharmacy? no [Intel Recruiter/Appt Center: Was the pharmacy entered into the Preferred Pharmacy field? Yes] Is it okay to leave detailed message on your voicemail? [phone] [Intel Recruiter/Appt Center: If this call is after 3 p.m., communicate to patient: If we are not able to get back to you by the end of the day and your symptoms worsen please contact the Careline] [Intel Recruiter: Inform patient that if they are active with online patient services they can receive their results online (only available for 12 years and younger and 18 years and older)] documented in this encounter Plan of Treatment Upcoming Encounters Date Type Specialty Care Team Description 08/10/2022 Appointment Gastroenterology Ashly Fortune, DIESEL ENGINE PIPE FITTER, CHEMICAL PROCESS EQUIPMENT OPERATOR [address] [facility] [address] [place] [address] (Wo rk) Scheduled Referrals Name Type Priority Associated Diagnoses Order S chedule COLONOSCOPY-DIAGNOSTIC Referral Routine Order ed: 05/01/2014 documented as of this encounter Visit Diagnoses Not on filedocumented in this encounter
--- OUTSIDE RECORDS SUMMARY | 2022-07-10 15:06 | XMS_ITS | Encounter Summary ---
:1990 Author Organization [facility] Address [address] [place] [address] Care Team Providers Name Role Phone Unavailable Primary Care Provider Unavailable Reason for Referral Consult/Transfer Care (Routine) - Closed Specialty Diagnoses / Procedures Referred By Contact Refer red To Contact Optometry Orlando Mckinley M D Aw Optometry [place] [address] [place] [address] Phone: Fax: Referral ID Status Reason Start Date Expiration Date Visits Requ ested Visits Authorized [id number] Closed 01/31/2015 05/01/2016 1 1 Scheduling Instructions Your provider has recommended an appoint ment with [facility]. You may call [phone] to schedule your a ppointment. If you prefer, a museum service scheduler will contact you within the next 3 business d ays to assist you in setting up this appointment. Reason for Visit Reason Comments Revisit Encounter Details Date Type Department Care Team Description 01/31/2015 Office Visit [facility] 401 Orlando Mckinley rthralgia (Primary Rheumatology Clinic MD Charles Dx) [address] [place] [address] Social History Tobacco Use Types Packs/Day Years [...] Team Description 08/10/2022 Appointment Gastroenterology Ashly Fortune, CAN INTAKE WORKER, STUDY SPECIALIST [address] [place] [address] (Wo rk) Scheduled Referrals Name Type Priority [...] 02/04/2015 2:05 PM C DT Performed at [facility], [address] [place] [address] ??[id number] Orlando Mckinley MD LAB_1 Performing Organization Address [facility] Phon e Number [facility] [phone] RHEUMATOID FACTOR, QUANT (01/31/2015 8:38 AM CDT) athologist Signature Quant. Rheum. <9 0 - 11 [facility] Factor IU/ml [facility] Specimen Anatomical Collection Method Collection Time Receive d Time (Source) Location / / Volume Laterality 01/31/2015 8:38 AM 5 8:43 CDT AM CDT Narrative [facility] - 01/31/2015 1:19 PM C DT Performed at [facility], [address] [place] [address] ??[address] Orlando Mckinley MD LAB_1 Performing Organization Address City/[facility] Phon e Number [facility] [phone] TSH, SENSITIVE with FT4, FT3 (if needed) (01/31/2015 8:38 AM CDT) athologist [facility] TSH, with 2.293 0.300 - [facility] Reflex 5.000 LAB[facility]ATORIES uIU/ml Specimen Anatomical Collection Method Collection Time Receive d Time (Source) Location / / Volume Laterality 01/31/2015 8:38 AM 5 8:43 CDT AM CDT Narrative [facility] - 01/31/2015 1:31 PM C DT Performed at [facility], [address] [place] [address] ??[address] Orlando Mckinley MD LAB_1 Performing Organization Address City/[facility] Phon e Number [facility] [phone] C-REACTIVE PROTEIN (01/31/2015 8:38 AM CDT) athologist [facility] C-Reactive 0.8 0.0 - 0.9 [facility] Protein mg/dl [facility]IES Comment: Note: results are expressed in mg/dL. Specimen Anatomical Collection Method Collection Time Receive d Time (Source) Location / / Volume Laterality 01/31/2015 8:38 AM 5 8:43 CDT AM CDT Narrative [facility] - 01/31/2015 1:19 PM C DT Performed at [facility], [address] [place] [address] ??[address] Orlando Mckinley MD LAB_1 Performing Organization Address City/[facility] Phon e Number [facility] [phone] (ABNORMAL) ESR (01/31/2015 8:38 AM CDT) athologist [facility] ESR 33 (H) 0 - 20 [facility] mm/hr Specimen Anatomical Collection Method Collection Time Receive d Time (Source) Location / / Volume Laterality 01/31/2015 8:38 AM 5 8:43 CDT AM CDT Narrative [facility] - 01/31/2015 2:59 PM C DT Performed at [facility], [address] [place] [address] ??[address] Orlando Mckinley MD LAB_1 Performing Organization Address City/State/ZIP Code Phon e Number [facility] [phone] documented in this encounter Visit Diagnoses Diagnosis Arthralgia - Primary Pain in joint, site unspecified Arthralgia Pain in joint, site unspecified documented in this encounter
--- OUTSIDE RECORDS SUMMARY | 2022-07-10 15:06 | XMS_ITS | Encounter Summary ---
:1990 Author Organization [facility] Address [address] [place] [address] Care Team Providers Name Role Phone Unavailable Primary Care Provider Unavailable Reason for Visit Procedure/Equipment (Routine) - Closed Specialty Diagnoses / Procedures Referred By Contact Refer red To Contact Lorrie Bhat, BUILDING ANALYST/SUPERVISOR, MACHINE OPERATOR PACKAGING [address] [place] [address] Referral ID Status Reason Start Date Expiration Date Visits Requ ested Visits Authorized [id number] Closed 05/01/2014 07/31/2015 1 1 Encounter Details Date Type Department Care Team Description 05/28/2014 Procedure Visit [facility] Specialty Christina Palacio, [place] Gastroenterol tomer AKINS 435 [facility] [address] [place] [address] [address] [place], [place] [address] Social History Tobacco Use [...] Team Description 08/10/2022 Appointment Gastroenterology Ashly Fortune, BUILDING ANALYST/SUPERVISOR, MACHINE OPERATOR PACKAGING [address] [facility] [address] [place], [place] [address] (Wo rk) documented as of this encounter [...] . documented in this encounter Results COLONOSCOPY [[id number]] (05/28/2014 3:47 PM CDT) Specimen (Source) Anatomical [...] Code(s): ?? --- Professional - -- ? 23135, Co lonoscopy, flexible, proximal to splenic ? flexure; with biopsy, single or multiple Diagnosis Code(s): ?? --- Professional - -- ? 787.91, D iarrhea CPT copyright 2013 [employer]. All rights reserved. The codes documented in this report are preliminary and upon paper supervisor review may be revised to meet current [...] iously scheduled. Procedure Code(s): --- Professional --- 91033, Colonoscopy, flexible, proximal to splenic flexure; with biopsy, single or multipl e Diagnosis Code(s): --- Professional --- 787.91, Diarrhea CPT copyright 2013 [employer]. All rights reserved. The codes documented in this report are preliminary and upon paper supervisor review may be revised to meet current complianc e requirements. Attending Participation: Evan Palacio MD 05/28/2014 4:16 PM Number of Addenda: 0 Note Initiated On: 05/28/2014 3:47 PM Evan Palacio MD D[facility]ARE Performing Organization Address City/State/ZIP Code Phon e Number GI (PROVATION) GI (PROVATION) [place], [place] Surgical Path - Colonoscopy (05/28/2014 7:00 AM CDT) [facility] Method Time Signature Histology (NOTE) [facility] Surgical Final Report [facility]OSP[facility] Patient Name: JULIETTE GAMING Taken: 05/28/2014 Received: 05/28/2014 Reported: 05/29/2014 Physician(s): EVAN PALACIO ([id number]) ? Final Pathologic Diagnosis A. Terminal ileum, biopsy -- No diagnostic abnormality B. Colon, random, biopsy -- No diagnostic abnormality Electronically Signed Out By ? Libra Oscar MD ??([id number] ) Procedures/Addenda Clinical History Diarrhea Gross Description [...] two slides. ?? ejaa/05/29/2014 Libra Oscar MD ??([id number] ) [facility] Department of Pathology [address] [place] [address] ??[address] Specimen Anatomical Collection Method Collection Time Receive d Time (Source) Location / / Volume Laterality COLON STRUCTURE / 05/28/2014 7:00 AM 05/03 6:19 Unknown CDT PM CDT COLON STRUCTURE / 05/28/2014 7:00 AM 05/03 6:19 Unknown CDT PM CDT Evan Palacio MD LAB_1 Performing Organization Address City/State/ZIP Code Phon e Number [address] [address] documented in this encounter Visit Diagnoses Diagnosis Screen for colon cancer - Primary Special screening for malignant neoplasm s, colon documented in this encounter
--- OUTSIDE RECORDS SUMMARY | 2022-07-10 15:06 | XMS_ITS | Encounter Summary ---
:1990 Author Organization [facility] Address [address] [place] [address] Care Team Providers Name Role Phone Unavailable Primary Care Provider Unavailable Reason for Visit Reason Comments Refill Encounter Details Date Type Department Care Team Description 10/06/2014 Refill [facility] 435 [facility] Oma Bower, Refill [facility] BUGGY OPERATOR, DISCHARGE DOOR OPERATOR [address] [place] [address] [place] [address] [phone] (Wo rk) Social History Tobacco Use Types [...] Team Description 08/10/2022 Appointment Gastroenterology Ashly Fortune, BUGGY OPERATOR, DISCHARGE DOOR OPERATOR [address] [place] [address] (Wo rk) documented as of this encounter Visit Diagnoses Not on filedocumented in this encounter
--- OUTSIDE RECORDS SUMMARY | 2022-07-10 15:06 | XMS_ITS | Encounter Summary ---
:1990 Author Organization [facility] Address [address] [place] [address] Care Team Providers Name Role Phone Unavailable Primary Care Provider Unavailable Reason for Visit Reason Comments CONSULT Nexplanon Encounter Details Date Type Department Care Team Description 04/05/2014 [facility] [place] I nsertion of Obstetrics and MD implantable subdermal Gynecology [address] [facility] contraceptive (Primary [address] [place], [place] Dx) [place] [phone] Social History Tobacco Use Types Packs/Day Years [...] Armando MD - 04/05/2014 12:58 PM CDT ASSOCIATE PROFESSOR OF GEOLOGY Office Note Chief Complaint: Discuss control SUBJECTIVE: [...] for a follow up visit. Lot number [id number] Chaya Armando MD documented in this encounter Plan of Treatment Upcoming Encounters Date Type Specialty Care Team Description 08/10/2022 Appointment Gastroenterology Ashly Fortune, PUSH BENCH OPERATOR HELPER, DYNAMOMETER TESTER ENGINE [address] [facility] [address] [place], [place] [address] (Wo rk) documented as of this encounter Visit Diagnoses Diagnosis Insertion of implantable subdermal contr aceptive - Primary documented in this encounter
--- OUTSIDE RECORDS SUMMARY | 2022-07-10 15:06 | XMS_ITS | Encounter Summary ---
:1990 Author Organization [facility] Address [address] [place] [address] Care Team Providers Name Role Phone Unavailable Primary Care Provider Unavailable Reason for Visit Reason Comments Consult, New Patient Dr. Winn referring Consult/Transfer Care (Routine) - Closed Specialty Diagnoses / Procedures Referred By Contact Refer red To Contact Orlando Mckinley M D [place] Referral ID Status Reason Start Date Expiration Date Visits Requ ested Visits Authorized [id number] Closed 03/05/2014 06/04/2015 1 1 Encounter Details Date Type Department Care Team Description 04/12/2014 Office Visit [facility] Zoey Bower, Abdom inal pain, generalized (Primary Dx); [address] [facility] Lorrie M, ORTHOPEDIC TECH, Acid r eflux; Clinic [place] Elevated C-reactive protein (CRP); [address] [place] [address] [place], [place] [phone] [address] Social History Tobacco Use Types Packs/Day Years [...] Please get your blood work done today maintenance and custodian supervisor prescription for Zantac at your pharmacy. Follow up in clinic with Lorrie Hardin NP , scheduled on WednesdayJuly 04 at 11:15am [address] We will contact you with results and recommendations If you have any questions or concerns, please call the [facility] at [phone]. documented in this encounter Progress Notes Lorrie [...] Her mom took her to see a account services associate when she was a child. There was [...] 08/10/2022 Appointment Gastroenterology Ashly Fortune APRN, CNP [address] [facility] [address] [place], [place] [address] (Wo rk) documented as of this encounter Results (ABNORMAL) IRON PROFILE (IRON,TIBC,%SAT.(CALC)) (04/12/2014 1:44 PM CDT) [facility] gist Method Time Signature Iron 76 [...] 04/12/2014 8:05 PM C DT Performed at [facility], [address] [place] [address] ??[id number] Lorrie Bower APRN, CNP LAB_1 Performing Organization Address City/State/ZIP Code Phon e Number [facility] [phone] FERRITIN (04/12/2014 1:44 PM CDT) P athologist Signature Ferritin 20 10 - 120 [facility] ng/ml Specimen Anatomical Collection Method Collection Time Receive d Time (Source) Location / / Volume Laterality 04/12/2014 1:44 PM 4 1:47 CDT PM CDT Narrative [facility] - 04/12/2014 8:05 PM C DT Performed at [facility], [address] [place] [address] ??[address] Lorrie Bower APRN, CNP LAB_1 Performing Organization Address [facility] Phon e Number [facility] [phone] CELIAC DISEASE PANEL AND IGA(IF NEEDED) (04/12/2014 1:44 PM CDT) Component Value Ref Test Analysis Performed At [facility] Nykaa Range Method Time Signature TTG 1 0 [...] - 04/13/2014 12:34 PM CDT Performed at [facility] Melon #usemelon [facility], [address] [place] [address] ??[id number] Lorrie Bower APRN, MATILDA LAB_1 Performing Organization Address [facility] Phon e Number [facility] [phone] H. PYLORI IGG (04/12/2014 1:44 PM CDT) [facility] Ny[place]a Method Time Signature H. pylori IgG Negative NEG [facility] Specimen Anatomical Collection Method Collection Time Receive d Time (Source) Location / / Volume Laterality 04/12/2014 1:44 PM 4 1:47 CDT PM CDT Narrative [facility] - 04/13/2014 3:02 PM C DT Performed at [facility] Melon [employer] [facility], [address] [place] [address] ??[address] Lorrie Bower APRN, MATILDA LAB_1 Performing Organization Address City/State/ZIP Code [facility] e Number [facility] [phone] documented in this encounter Visit Diagnoses Diagnosis Abdominal pain, generalized - Primary Acid reflux Esophageal reflux Elevated C-reactive protein (CRP) Loose stools Abnormal feces documented in this encounter
--- OUTSIDE RECORDS SUMMARY | 2022-07-10 15:06 | XMS_ITS | Encounter Summary ---
:1990 Author Organization [facility] Address [address] [place] [address] Care Team Providers Name Role Phone Unavailable Primary Care Provider Unavailable Reason for Visit Reason Comments Refill ranitidine (ZANTAC) 150 MG t ablet [Pharmacy Med Name: RANITIDINE 150 MG TABLET] Encounter Details Date Type Department Care Team Description 04/07/2016 Refill [facility] 435 Elaine Shultz MD Refill (ranitidine [facility] [address] [address] SALDANA (ZANTAC) 150 MG tablet [address] [place] [address] [Pharmacy Med Name: [place] [address] RANITIDINE 150 MG [phone] TABLET]) Social History Tobacco Use Types Packs/Day [...] at bedtime if needed (changed) Powered by [employer], Reference: [id number], 04/07/2016 1:26:12 PM CDT, Pool: TAMEKA REFILL MARIIA ([id number]) documented in this encounter Plan of Treatment Upcoming Encounters Date Type Specialty Care Team Description 08/10/2022 Appointment Gastroenterology Ashly Fortune, LAB SUPPORT SERVICE TECH, AIRCRAFT STRUCTURAL REPAIR MECHANIC [address] [place], [place] [address] (Wo rk) documented as of this encounter Visit Diagnoses Not on filedocumented in this encounter
--- OUTSIDE RECORDS SUMMARY | 2022-07-10 15:06 | XMS_ITS | Encounter Summary ---
:1990 Author Organization [facility] Address [address] [place] [address] Care Team Providers Name Role Phone Unavailable Primary Care Provider Unavailable Reason for Visit Reason Comments Refill ranitidine (ZANTAC) 150 MG t ablet [Pharmacy Med Name: RANITIDINE 150 MG TABLET] Encounter Details Date Type Department Care Team Description 07/02/2016 Refill [facility] 435 Elaine Shultz MD Refill (ranitidine [facility] [address] JC SALDANA (ZANTAC) 150 MG tablet 435 [place] [address] [Pharmacy Med Name: [place] [address] RANITIDINE 150 MG [phone] TABLET]) Social History Tobacco Use Types Packs/Day [...] CST per standing order Edith Vázquez RN R CALIBRATOR Interface, Out Surescripts Prov Query - 07/02/2016 [...] at bedtime if needed (unchanged) Powered by [employer], Reference: [id number], 07/02/2016 1:28:57 AM METER CALIBRATOR, Pool: TAMEKA REFILL RN ([id number]) R CALIBRATOR documented in this encounter Plan of Treatment Upcoming Encounters Date Type Specialty Care Team Description 08/10/2022 Appointment Gastroenterology Ashly Fortune, AUTOMOTIVE TIRE WORKER, USED CAR SALESPERSON [address] [place], [place] [address] (Wo rk) documented as of this encounter Visit Diagnoses Not on filedocumented in this encounter
--- OUTSIDE RECORDS SUMMARY | 2022-07-10 15:06 | XMS_ITS | Encounter Summary ---
:1990 Author Organization [facility] Address [address] [place] [address] Care Team Providers Name Role Phone Needs Pcp, Assignment Primary Care Provider Encounter Details Date Type Department Care Team Description 08/26/2014 Emergency Room External to [facility], Provider EAR PAIN Social History Tobacco [...] Team Description 08/10/2022 Appointment Gastroenterology Ashly Fortune, TRANSFUSION NURSE, HEALTH SERVICES COORDINATOR [address] [place], [place] [address] (Wo rk) documented as of this encounter Visit Diagnoses Not on filedocumented in this encounter Care Teams Manufacturing Intern Relationship Specialty Start Date End Date Needs Pcp, Assignment PCP - General 06/22/22 [place], [place] [id number] documented as of this encounter
--- OUTSIDE RECORDS SUMMARY | 2022-07-10 15:06 | XMS_ITS | Encounter Summary ---
:1990 Author Organization [employer] Address [address] [place] [address] Care Team Providers Name Role Phone Unavailable Primary Care Provider Unavailable Encounter Details Date Type Department Care Team Description 01/31/2015 Orders Only Specialty Center Laboratory Arthralgia [address] [place], [place] [phone] Social History Tobacco Use Types Packs/Day Years [...] Team Description 08/10/2022 Appointment Gastroenterology Ashly Fortune, SHEET LAYER, EMT [address] [facility] [address] [place], [place] [address] (Wo rk) documented as of this encounter [...] Results CCP-AB (01/31/2015 8:38 AM CDT) athologist [facility] Anti-CCP <1 0 - 6 U/ml [facility] Antibody [facility] Comment: INTERPRETATION OF RESULTS NEGATIVE ? <7 EQUIVOCAL ?7-10 POSITIVE ? >10 Specimen Anatomical Collection Method Collection Time Receive d Time (Source) Location / / Volume Laterality 01/31/2015 8:38 AM 5 8:43 CDT AM CDT Narrative [facility] - 02/04/2015 2:05 PM C DT Performed at [facility], [address] [place] [address] ??[id number] Orlando Mckinley MD LAB_1 Performing Organization Address City/[facility] Phon e Number [facility] [phone] RHEUMATOID FACTOR, QUANT (01/31/2015 8:38 AM CDT) athologist [facility] Quant. Rheum. <9 0 - 11 [facility] Factor IU/ml [facility] Specimen Anatomical Collection Method Collection Time Receive d Time (Source) Location / / Volume Laterality 01/31/2015 8:38 AM 5 8:43 CDT AM CDT Narrative [facility] - 01/31/2015 1:19 PM C DT Performed at [facility], [address] [place] [address] ??[id number] Orlando Mckinley MD LAB_1 Performing Organization Address City/[facility] Phon e Number [facility] [phone] TSH, SENSITIVE with FT4, FT3 (if needed) (01/31/2015 8:38 AM CDT) athologist [facility] TSH, with 2.293 0.300 - [facility] Reflex 5.000 LAB[facility]ATORIES uIU/ml Specimen Anatomical Collection Method Collection Time Receive d Time (Source) Location / / Volume Laterality 01/31/2015 8:38 AM 5 8:43 CDT AM CDT Narrative [facility] - 01/31/2015 1:31 PM C DT Performed at [facility], [address] [place] [address] ??[id number] Orlando Mckinley MD LAB_1 Performing Organization Address City/[facility] Code Phon e Number [facility] [phone] C-REACTIVE PROTEIN (01/31/2015 8:38 AM CDT) P athologist Signature C-Reactive 0.8 0.0 - 0.9 [facility] Protein mg/dl [facility] Comment: Note: results are expressed in mg/dL. Specimen Anatomical Collection Method Collection Time Receive d Time (Source) Location / / Volume Laterality 01/31/2015 8:38 AM 5 8:43 CDT AM CDT Narrative [facility] - 01/31/2015 1:19 PM C DT Performed at [facility], [address] [place] [address] ??[phone] Orlando Mckinley MD LAB_1 Performing Organization Address City/[facility] Phon e Number [facility] [phone] (ABNORMAL) ESR (01/31/2015 8:38 AM CDT) athologist Signature ESR 33 (H) 0 - 20 [facility] mm/hr Specimen Anatomical Collection Method Collection Time Receive d Time (Source) Location / / Volume Laterality 01/31/2015 8:38 AM 5 8:43 CDT AM CDT Narrative [facility] - 01/31/2015 2:59 PM C DT Performed at [facility], [address] [place] [address] ??[id number] Orlando Mckinley MD LAB_1 Performing Organization Address City/[facility] Phon e Number [facility] [phone] documented in this encounter Visit Diagnoses Diagnosis Arthralgia Pain in joint, site unspecified documented in this encounter
--- OUTSIDE RECORDS SUMMARY | 2022-07-10 15:06 | XMS_ITS | Encounter Summary ---
:1990 Author Organization [employer] Address [address] [place] [address] Care Team Providers Name Role Phone Unavailable Primary Care Provider Unavailable Reason for Visit Reason Comments ROUTINE, FOLLOW-UP Encounter Details Date Type Department Care Team Description 05/25/2016 Office Visit Specialty Center Orlando Mckinley ferentiated 401 Rheumatology MD [facility] [place] (HR) (Primary Dx) [address] [place] [address] Social History Tobacco Use Types [...] is had arthralgias never any synovitis. Serologically [place] but had slight elevations of sedimentation rate [...] MCG/ACT nasal solution Apply or instill 1 [place] into both nostrils daily. 16 g 11 [...] Team Description 08/10/2022 Appointment Gastroenterology Ashly Fortune, POCKET CUTTER, ORNAMENT STAPLER [address] [place] [address] (Wo rk) documented as of this encounter Visit Diagnoses Diagnosis Undifferentiated connective tissue disea se (HRC) - Primary Unspecified diffuse connective tissue di sease documented in this encounter
--- OUTSIDE RECORDS SUMMARY | 2022-07-10 15:06 | XMS_ITS | Encounter Summary ---
:1990 Author Organization [employer] Address [address] [place] [address] Care Team Providers Name Role Phone Unavailable Primary Care Provider Unavailable Encounter Details Date Type Department Care Team Description 02/27/2016 Notes/Orders Specialty Center Elaine Shultz, En counter for 401 Rheumatology long-term (current) Clinic [address] [address] use of medications [address] (Primary Dx) [place] [address] [place], [place] [phone] Social History Tobacco Use Types Packs/Day Years [...] - NEXT LAB APPOINTMENT: None Powered by [employer], Reference: [id number], 02/27/2016 1:15:49 AM CDT, Pool: Leslie MariscalKim ([id number]) F COMBAT INFORMATION CENTER OFFICER documented in this encounter Plan of Treatment Upcoming Encounters Date Type Specialty Care Team Description 08/10/2022 Appointment Gastroenterology Ashly Fortune, DULITE MACHINE BLUER, WELDING INSPECTOR [address] [place], [place] [address] (Wo rk) documented as of this encounter Visit Diagnoses Diagnosis Encounter for long-term (current) use of medications - Primary Encounter for long-term (current) use of other medications documented in this encounter
--- OUTSIDE RECORDS SUMMARY | 2022-07-10 15:06 | XMS_ITS | Encounter Summary ---
:1990 Author Organization [employer] Address [address] [place] [address] Care Team Providers Name Role Phone Unavailable Primary Care Provider Unavailable Reason for Visit Reason Comments Refill Encounter Details Date Type Department Care Team Description 05/27/2015 Refill [facility] 401 Juan Ramon Cole MD Refill Rheumatology Clinic [address] [place] [address] [place], [place] [address] [phone] Social History Tobacco Use Types Packs/Day Years [...] two times a day. (unchanged) Powered by [employer], Reference: [id number], 05/27/2015 1:08:20 AM CDT, Pool: Kelsey Sandoval Care Team ([id number]) documented in this encounter Plan of Treatment Upcoming Encounters Date Type Specialty Care Team Description 08/10/2022 Appointment Gastroenterology Ashly Fortune, TIRE DEBEADER, APPLICATIONS ARCHITECT [address] [facility] [address] [place], [place] [address] (Wo rk) documented as of this encounter Visit Diagnoses Not on filedocumented in this encounter
--- OUTSIDE RECORDS SUMMARY | 2022-07-10 15:06 | XMS_ITS | Encounter Summary ---
:1990 Author Organization [employer] Address [address] [place] [address] Care Team Providers Name Role Phone Unavailable Primary Care Provider Unavailable Reason for Visit Reason Comments Ear Pain one week Encounter Details Date Type Department Care Team Description 07/30/2015 Office Visit Dayanara Dixon, Derik e suppurative otitis media of right ear without spontaneous rupture of tympanic membrane, recurrence not specified (Primary Dx); Practice BRAND REPRESENTATIVE, DNP Acute serous otitis media of left ear, r ecurrence not specified [address] [address] [place] [address] [place] [address] (Wo rk) Social History Tobacco Use Types [...] Comments Blood Pressure 124/73 07/30/2015 8:16 AM FOOD CRITIC Pulse 81 07/30/2015 8:16 AM FOOD CRITIC Temperature 36.7 ??C (98.1 ??F) 07/30/2015 8:16 AM FOOD CRITIC Respiratory Rate - - Oxygen Saturation - - Inhaled Oxygen Concentration - - Weight 74.8 kg (165 lb) 07/30/2015 8:16 AM FOOD CRITIC Height - - Body Mass Index 30.42 05/10/2014 1:41 PM CDT documented in this encounter Patient Instructions Patient InstructionsDayanara Grubbs APRN, DNP - 07/30/2015 8:34 AM FOOD CRITIC - Take the antibiotic twice daily with food for 10 days - Use Flonase, 1 spray each nostril, daily - If still experiencing decreased hearing, fullness, or ear pain after completing antibiotic, returnto clinic CRITIC documented in this encounter Progress Notes Dayanara [...] Dayanara Grubbs APRN, DNP, 07/30/2015, 11:20 AM CRITIC documented in this encounter Plan of Treatment Upcoming Encounters Date Type Specialty Care Team Description 08/10/2022 Appointment Gastroenterology Ashly Fortune APRN, FURNACE TENDER [address] [facility] [address] [place] [address] (Wo rk) documented as of this encounter Visit Diagnoses Diagnosis Acute suppurative otitis media of right ear without spontaneous rupture of tympanic membrane, recurrence not specified - Felicia webb Acute serous otitis media of left ear, r ecurrence not specified documented in this encounter
--- OUTSIDE RECORDS SUMMARY | 2022-07-10 15:06 | XMS_ITS | Encounter Summary ---
:1990 Author Organization [facility] Address [address] [place] [address] Care Team Providers Name Role Phone Unavailable Primary Care Provider Unavailable Reason for Visit Reason Comments Refill Encounter Details Date Type Department Care Team Description 03/18/2015 Refill [facility] 435 [facility] Oma Bower, Refill Digestive Care Clini c SOIL CONSERVATIONIST, ICT BUSINESS ANALYST [address] [place] [address] [place] [address] [phone] (Wo rk) Social History Tobacco Use Types [...] Description 08/10/2022 Appointment Gastroenterology Ashly Fortune APRN, ICT BUSINESS ANALYST [address] [place] [address] (Wo rk) documented as of this encounter Visit Diagnoses Not on filedocumented in this encounter
--- OUTSIDE RECORDS SUMMARY | 2022-07-10 15:06 | XMS_ITS | Encounter Summary ---
:1990 Author Organization [employer] Address [address] [place] [address] Care Team Providers Name Role Phone Unavailable Primary Care Provider Unavailable Reason for Visit Reason Comments Refill Encounter Details Date Type Department Care Team Description 09/30/2015 Refill [facility] 435 Lori Bedolla MD Refill [facility] [address] [place] [address] [place] [address] [phone] Social History Tobacco Use Types Packs/Day Years [...] send to her PCP. Yuliana Perez MD [facility] Noelle Bryant RN - 09/30/2015 11:00 AM CST Unable to fill per standing orders, pt has not been seen at GI clinic since 2014 by Lorrie Ferrari NP Last visit ASSESSMENT [...] her with lab results. -to GI MD actionscript developer to review and advise. Noelle Bryant RN [facility] documented in this encounter Plan of Treatment Upcoming Encounters Date Type Specialty Care Team Description 08/10/2022 Appointment Gastroenterology Ashly Fortune, BAND TEACHER, PER DIEM NURSE [address] [place], [place] [address] (Wo rk) documented as of this encounter Visit Diagnoses Not on filedocumented in this encounter
--- OUTSIDE RECORDS SUMMARY | 2022-07-10 15:06 | XMS_ITS | Encounter Summary ---
:1990 Author Organization [facility] Address [address] [place] [address] Care Team Providers Name Role Phone Unavailable Primary Care Provider Unavailable Reason for Referral Consult/Transfer Care (Routine) - Closed Specialty Diagnoses / Procedures Referred By Contact Refer red To Contact Orlando Mckinley M D [place] Referral ID Status Reason Start Date Expiration Date Visits Requ ested Visits Authorized [id number] Closed 03/05/2014 06/04/2015 1 1 Scheduling Instructions Your provider has recommended an appoint ment with [facility]. You may call [phone] to schedule yo ur appointment. If you prefer, a rehabilitation aide/scheduler will contact you within the next 3 busin ess days to assist you in setting up this appointment. Reason for Visit Reason Comments ROUTINE, FOLLOW-UP Encounter Details Date Type Department Care Team Description 03/05/2014 Office Visit Specialty Center Orlando Mckinley ferentiated 401 Rheumatology MD [facility] [place] (Primary Dx) [address] [place] [address] Social History Tobacco Use Types [...] Team Description 08/10/2022 Appointment Gastroenterology Ashly Fortune, COOPER HELPER, WATER SOFTENER INSTALLER [address] [place] [address] (Wo rk) Scheduled Referrals Name Type Priority Associated Diagnoses Order [facility] GASTROENTEROLOGY Referral Routine Ordered: CONSULT-ADULTS documented as of this encounter Visit Diagnoses Diagnosis Undifferentiated connective tissue disea se (HRC) - Primary Unspecified diffuse connective tissue di sease documented in this encounter
--- OUTSIDE RECORDS SUMMARY | 2022-07-10 15:06 | XMS_ITS | Encounter Summary ---
:1990 Author Organization [employer] Address [address] [place] [address] Care Team Providers Name Role Phone Unavailable Primary Care Provider Unavailable Reason for Visit Reason Comments Follow-up, NOS IMMUNIZATIONS Encounter Details Date Type Department Care Team Description 05/10/2014 Office Visit Specialty Center Orlando Mckinley for immunization (Primary Dx); 401 Rheumatology MD Charles Unspecified inflammatory polyarthropathy Clinic [address] [address] Social History Tobacco Use Types Packs/Day [...] Team Description 08/10/2022 Appointment Gastroenterology Ashly Fortune, TRANSPORTATION SALES CONSULTANT, MOTOR MAN [address] [facility] [address] [place] [address] (Wo rk) documented as of this encounter Visit Diagnoses Diagnosis Encounter for immunization - Primary Need for other specified prophylactic va ccination against single bacterial disease 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
--- OUTSIDE RECORDS SUMMARY | 2022-07-10 15:06 | XMS_ITS | Encounter Summary ---
:1990 Author Organization [employer] Address [address] [place] [address] Care Team Providers Name Role Phone Unavailable Primary Care Provider Unavailable Encounter Details Date Type Department Care Team Description 02/23/2014 Notes/Orders [facility] Marysol Vitale for thyroid Obstetrics and L, CHRONOMETER TESTER, SAILOR disorder Gynecology [address] [place], [place] [address] Social History Tobacco Use Types [...] Team Description 08/10/2022 Appointment Gastroenterology Ashly Fortune, CHRONOMETER TESTER, SAILOR [address] [place], [place] [address] (Wo rk) documented as of this encounter Procedures Procedure Name Priority Date/Time Associated Diagnosis Comme nts TSH, SENSITIVE Routine 02/23/2014 1:40 PM Screening for Result s for this (WITH REFLEX) CDT thyroid disorder procedure are in the results section. documented in this encounter Results TSH, SENSITIVE (WITH REFLEX)[[id number]] - Clinics ONLY (02/23/2014 1:40 PM CDT) P athologist Signature TSH, with 2.366 0.300 - [facility] 5.000 LAB[facility]ATORIES uIU/ml Specimen Anatomical Collection Method Collection Time Receive d Time (Source) Location / / Volume Laterality 02/23/2014 1:40 PM 4 1:59 CDT PM CDT Narrative [facility] - 02/23/2014 4:34 PM C DT Performed at [facility], [address] [place] [address] ??[phone] Marysol Vitale APRN, MATILDA LAB_1 Performing Organization Address City/State/ZIP Code Phon e Number [facility] [phone] documented in this encounter Visit Diagnoses Diagnosis Screening for thyroid disorder documented in this encounter
--- OUTSIDE RECORDS SUMMARY | 2022-07-10 15:06 | XMS_ITS | Encounter Summary ---
:1990 Author Organization [facility] Address [address] [place] [address] Care Team Providers Name Role Phone Unavailable Primary Care Provider Unavailable Reason for Visit Reason Comments Encounter Details Date Type Department Care Team Description 02/04/2015 Telephone Specialty Center 401 Orlando Mckinley MD Rheumatology Clinic [place] 401 [facility]. [place], [place] [phone] Social History Tobacco Use Types Packs/Day Years [...] patient understanding was voiced. Kathya Alba LPN TTET Zandra Gr LPN - 02/08/2015 10:10 AM [...] Team Description 08/10/2022 Appointment Gastroenterology Ashly Fortune, HOP TRAINER, A/C TECH [address] [place], [place] [address] (Wo rk) documented as of this encounter Visit Diagnoses Not on filedocumented in this encounter
--- OUTSIDE RECORDS SUMMARY | 2022-07-10 15:06 | XMS_ITS | Encounter Summary ---
:1990 Author Organization [employer] Address [address] [place] [address] Care Team Providers Name Role Phone Unavailable Primary Care Provider Unavailable Reason for Visit Reason Comments Refill Encounter Details Date Type Department Care Team Description 09/03/2015 Refill [facility] 401 Juan Ramon Cole MD Refill Rheumatology Clinic [address] [place] [address] [place], [place] [id number] [phone] Social History Tobacco Use Types Packs/Day Years [...] two times a day. (unchanged) Powered by [employer], Reference: [id number], 09/03/2015 1:06:26 PM SALES FORCE ADMINISTRATOR, Pool: Kelsey Jaime Care Team ([id number]) S FORCE ADMINISTRATOR documented in this encounter Plan of Treatment Upcoming Encounters Date Type Specialty Care Team Description 08/10/2022 Appointment Gastroenterology Ashly Fortune, BILLING SPEC, BRINE TANK OPERATOR [address] [facility] [address] [place] [address] (Wo rk) documented as of this encounter Visit Diagnoses Not on filedocumented in this encounter
--- OUTSIDE RECORDS SUMMARY | 2022-07-10 15:06 | XMS_ITS | Encounter Summary ---
:1990 Author Organization [employer] [facility] Address [address] [place] [address] Care Team Providers Name Role Phone Needs [...] Team Description 08/10/2022 Appointment Gastroenterology Ashly Fortune, DELIVERY MERCHANDISER, ADOBE CQ DEVELOPER [address] [place], [place] [address] (Wo rk) documented as of this encounter Visit Diagnoses Not on filedocumented in this encounter Care Teams Risk Control Officer Relationship Specialty Start Date End Date Needs Pcp, Assignment PCP - General 06/22/22 [place], [place] [phone] documented as of this encounter
--- OUTSIDE RECORDS SUMMARY | 2022-07-10 15:06 | XMS_ITS | Encounter Summary ---
:1990 Author Organization [employer] Address [address] [place] [address] Care Team Providers Name Role Phone Unavailable Primary Care Provider Unavailable Reason for Visit Reason Onset Date Comments FYI 03/13/2014 Encounter Details Date Type Department Care Team Description 03/13/2014 Telephone Specialty Center 401 Orlando Mckinley MD [facility] Rheumatology Clinic [place] 401 [facility] [place] [address] Social History Tobacco Use Types [...] try the plaquenil, as discussed, safer for exterminator termite. Twice a day,and cut prednisone by 1/2 [...] Team Description 08/10/2022 Appointment Gastroenterology Ashly Fortune, HOSPITALITY COORDINATOR, CREDIT COUNSELOR [address] [place], [place] [address] (Wo rk) documented as of this encounter Visit Diagnoses Not on filedocumented in this encounter
--- OUTSIDE RECORDS SUMMARY | 2022-07-10 15:06 | XMS_ITS | Encounter Summary ---
:1990 Author Organization [facility] Address [address] [place] [address] Care Team Providers Name Role Phone Unavailable [...] Optometry Orlando Mckinley M D [facility] [place] [address] [place] [address] Phone: Fax: Referral ID Status Reason Start Date Expiration Date Visits Requ ested Visits Authorized [id number] Closed 01/31/2015 05/01/2016 1 1 Encounter Details Date Type Department Care Team Description 03/29/2015 Office Visit [facility] Tony Travis, Unspec ified inflammatory polyarthropathy (Primary Dx); 401 Optometry Clinic OD Encounter for long-term (current) use of other medications [address] [place] [address] [place], [place] [phone] Social History Tobacco Use Types Packs/Day Years Used Date Smoking Tobacco: Former Smokeless Tobacco: Never Comments: only smoked occ Alcohol Use Standard Drinks/Week Comments Yes 0.8 (1 standard drink = 0.6 oz pure alco hol) soc Sex Assigned at Date Recorded Not on file documented as of this encounter Progress Notes Tony Travis OD - 03/29/2015 8:54 AM CDT HPI [...] RTC sooner with any vision change Tony Travis OD documented in this encounter Plan of Treatment Upcoming Encounters Date Type Specialty Care Team Description 08/10/2022 Appointment Gastroenterology Ashly Fortune, KOSHER INSPECTOR, CHAIN MAKER HAND [address] [place] [address] (Wo rk) documented as of this encounter Visit Diagnoses Diagnosis Unspecified inflammatory polyarthropathy (HRC) - Primary Unspecified inflammatory polyarthropathy Encounter for long-term (current) use of other medications documented in this encounter
--- OUTSIDE RECORDS SUMMARY | 2022-07-10 15:06 | XMS_ITS | Encounter Summary ---
:1990 Author Organization [employer] Address [address] [place] [address] Care Team Providers Name Role Phone Unavailable [...] 04/14/2016 Office Visit [facility] Tony rTavis Inflam matory polyarthropathy (HRC) (Primary Dx); 401 Optometry Clinic OD Long-term use of Plaquenil [address] [place] [address] [place], [place] [phone] Social History Tobacco Use Types Packs/Day Years [...] Team Description 08/10/2022 Appointment Gastroenterology Ashly Fortune, SPECIAL EDUCATION SCIENCE TEACHER, LAST REPAIRER HELPER [address] [place] [address] (Wo rk) documented as of this encounter Visit Diagnoses Diagnosis Inflammatory polyarthropathy (HRC) - Felicia webb Unspecified inflammatory polyarthropathy Long-term use of Plaquenil documented in this encounter
--- OUTSIDE RECORDS SUMMARY | 2022-07-10 15:06 | XMS_ITS | Encounter Summary ---
:1990 Author Organization [employer] Address [address] [place] [address] Care Team Providers Name Role Phone Unavailable Primary Care Provider Unavailable Reason for Visit Reason Comments Encounter Details Date Type Department Care Team Description 02/27/2014 Telephone Specialty Center 401 Orlando Mckinley MD Rheumatology Clinic [address] [place], [place] [phone] Social History Tobacco Use Types Packs/Day Years [...] Team Description 08/10/2022 Appointment Gastroenterology Ashly Fortune, COPY ROOM TECHNICIAN, DENTAL MOLD MAKER [address] [place] [address] (Wo rk) documented as of this encounter Visit Diagnoses Not on filedocumented in this encounter
--- OUTSIDE RECORDS SUMMARY | 2022-07-10 15:06 | XMS_ITS | Encounter Summary ---
:1990 Author Organization [employer] Address [address] [place] [address] Care Team Providers Name Role Phone Unavailable Primary Care Provider Unavailable Reason for Visit Reason Comments Refill hydroxychloroquine (PLAQUENI L) 200 MG tablet [Pharmacy Med Name: HYDROXYCHLOROQUINE 200 MG TA B] Encounter Details Date Type Department Care Team Description 06/04/2016 Refill [facility] [address]inley (hydroxychloroquine [facility] MD Charles (PLAQUENIL) 200 MG tablet 401 [facility] [Pharmacy Med Name: [place] [address] HYDROXYCHLOROQUINE 200 MG [phone] TAB]) Social History Tobacco Use Types Packs/Day [...] tab by mouth daily. (changed) Powered by [employer], Reference: [id number], 06/04/2016 5:46:21 PM CDT, Pool: Arlen Perry Care Team ([id number]) documented in this encounter Plan of Treatment Upcoming Encounters Date Type Specialty Care Team Description 08/10/2022 Appointment Gastroenterology Ashly Fortune, MANUFACTURE SPECIALIST, OVEN PRESS TENDER [address] [place] [address] (Wo rk) documented as of this encounter Visit Diagnoses Not on filedocumented in this encounter
--- OUTSIDE RECORDS SUMMARY | 2022-07-10 15:07 | XMS_ITS | Encounter Summary ---
:1990 Author Organization [employer] Address [address] [place] [address] Care Team Providers Name Role Phone Unavailable Primary Care Provider Unavailable Reason for Visit Reason Onset Date Comments Lab Orders Needed 10/04/2011 Encounter Details Date Type Department Care Team Description 10/04/2011 Telephone [employer] [facility] Eduarda Shultz MD Lab Orders Needed [facility] [address] [address] [facility] [address] [place] [address] [place], [place] [address] [phone] Social History Tobacco Use Types Packs/Day Years [...] seen. Transferred to schedule. Etelvina Reddy RN DEVELOPER WITH SECURITY CLEARANCE Brisa Hooper - 10/05/2011 2:27 PM CST Pt returned call DEVELOPER WITH SECURITY CLEARANCE Etelvina Reddy RN - 10/05/2011 8:34 AM CST Why is patient requesting these labs? Any symptoms? Left message to call back. Etelvina Reddy RN DEVELOPER WITH SECURITY CLEARANCE Jossy Mack - 10/04/2011 4:22 PM CST [...] have for the services you are requesting. DEVELOPER WITH SECURITY CLEARANCE documented in this encounter Plan of Treatment Upcoming Encounters Date Type Specialty Care Team Description 08/10/2022 Appointment Gastroenterology Ashly Fortune, CISCO, IGNITER ASSEMBLER [address] [place], [place] [address] (Wo rk) documented as of this encounter Visit Diagnoses Not on filedocumented in this encounter
--- OUTSIDE RECORDS SUMMARY | 2022-07-10 15:07 | XMS_ITS | Encounter Summary ---
:1990 Author Organization [employer] Address [address] [place] [address] Care Team Providers Name Role Phone Unavailable Primary Care Provider Unavailable Reason for Visit Reason Comments Control Consult high cholesterol Encounter Details Date Type Department Care Team Description 12/14/2013 [facility] on[facility]ption (Primary Obstetrics and MD Dx) Gynecology [address] [address] [place] [address] [phone] Social History Tobacco Use Types Packs/Day Years [...] MD - 12/14/2013 1:27 PM CDT Call [phone] to schedule insertion of Nexplanon or Andreia. documented in this encounter Progress Notes Chaya Armando MD - 12/14/2013 1:12 PM CDT CUSTOMER SERVICE OFFICER Office Note Chief Complaint: Needs to change [...] Team Description 08/10/2022 Appointment Gastroenterology Ashly Fortune, CONSTRUCTION EQUIPMENT OPERATOR, FORGING DIE FINISHER [address] [place], [place] [address] (Wo rk) documented as of this encounter Visit Diagnoses Diagnosis Contraception - Primary Unspecified contraceptive management documented in this encounter
--- OUTSIDE RECORDS SUMMARY | 2022-07-10 15:07 | XMS_ITS | Encounter Summary ---
:1990 Author Organization [employer] Address [address] [place] [address] Care Team Providers Name Role Phone Unavailable Primary Care Provider Unavailable Encounter Details Date Type Department Care Team Description 12/16/2011 Orders Only [facility] Abnormal laboratory test; [address] [place], [place] [address] Social History Tobacco Use Types [...] Team Description 08/10/2022 Appointment Gastroenterology Ashly Fortune, NURSING PROGRAM DIRECTOR, PUMP HOUSE ENGINEER [address] [place], [place] [address] (Wo rk) documented as of this encounter [...] [facility] [phone] [facility] [address] [address] (ABNORMAL) ESR (12/16/2011 2:57 PM CDT) athologist Signature ESR 28 (H) 0 - 20 [facility] mm/hr Specimen Anatomical Collection Method Collection Time Receive d Time (Source) Location / / Volume Laterality 12/16/2011 2:57 PM 2 2:59 CDT PM CDT Elaine Shultz MD LAB_1 Performing Organization Address [facility] Phon e Number [facility] [phone] [address] (ABNORMAL) C-REACTIVE PROTEIN (12/16/2011 2:57 PM CDT) [facility] Method Time Signature C-Reactive 1.5 (H) 0.0 - 0.9 [facility] Protein mg/dl Comment: Note: results are expressed in mg/dL. Specimen Anatomical Collection Method Collection Time Receive d Time (Source) Location / / Volume Laterality 12/16/2011 2:57 PM 2 2:59 CDT PM CDT Elaine Shultz MD LAB_1 Performing Organization Address [facility] Phon e Number [facility] [phone] [address] RHEUMATOID FACTOR, QUANT (12/16/2011 2:57 PM CDT) athologist Signature Quant. Rheum. <9 0 - 11 [facility] Factor IU/ml Specimen Anatomical Collection Method Collection Time Receive d Time (Source) Location / / Volume Laterality 12/16/2011 2:57 PM 2 2:59 CDT PM CDT Elaine Shultz MD LAB_1 Performing Organization Address [facility] Phon e Number [facility] [phone] [phone] (ABNORMAL) MELISSA SCREEN (12/16/2011 2:57 PM CDT) [facility] Method Time Signature MELISSA Screen Positive (A) NEG [facility] Comment: This is a test that requires interpretat ion by your provider and does not necessarily indicate that you have a specific disease. Specimen Anatomical Collection Method Collection Time Receive d Time (Source) Location / / Volume Laterality 12/16/2011 2:57 PM 2 2:59 CDT PM CDT Elaine Shultz MD LAB_1 Performing Organization Address [facility] Phon e Number [facility] [employer] [phone] [address] (ABNORMAL) HEMOGRAM/PLTS (12/16/2011 2:57 PM CDT) athologist Signature WBC 5.0 4.0 - 11.0 [facility] k/ul RBC 4.20 4.0 - 5.2 [facility] M/ul Hemoglobin 11.7 (L) 12.0 - [facility] 16.0 g/dl HCT 35.7 (L) 36.0 - [facility] 46.0 % MCV 85.0 80 - 100 [facility] fl MCH 27.9 26 - 34 pg [facility] MCHC 32.8 32 - 36 [facility] g/dl RDW 12.7 11.5 - [facility] 14.5 % Platelets 285 150 - 450 [facility] k/ul Specimen Anatomical Collection Method Collection Time Receive d Time (Source) Location / / Volume Laterality 12/16/2011 2:57 PM 2 2:59 CDT PM CDT Elaine Shultz MD LAB_1 Performing Organization Address City/[facility] Phon e Number [facility] [employer] [facility] [phone] [address] VITAMIN D 25-HYDROXY, TOTAL (V77.99) (12/16/2011 2:57 PM CDT) athologist Signature Vitamin 31.3 30 - 80 [facility] D,25-OH, Tot ng/mL Comment: Deficiency: ??< 20 ng/mL Insufficiency: ??20-29 ng/mL Optimum Level: ??30-80 ng/mL Possible Toxicity: > 80 ng/mL Performed at [facility] Specimen Anatomical Collection Method Collection Time Receive d Time (Source) Location / / Volume Laterality 12/16/2011 2:57 PM 2 2:58 CDT PM CDT Elaine Shultz MD LAB_1 Performing Organization Address City/State/ZIP Code Phon e Number [facility] [phone] [address] documented in this encounter Visit Diagnoses Diagnosis Abnormal laboratory test Other abnormal clinical finding Arthralgia Pain in joint, site unspecified documented in this encounter
--- OUTSIDE RECORDS SUMMARY | 2022-07-10 15:07 | XMS_ITS | Encounter Summary ---
:1990 Author Organization [employer] Address [address] [place] [address] Care Team Providers Name Role Phone Needs [...] Team Description 08/10/2022 Appointment Gastroenterology Ashly Fortune, RESTAURANT MANAGER, STUMP SHOOTER [address] [place] [address] (Wo rk) documented as of this encounter Visit Diagnoses Not on filedocumented in this encounter Care Teams Machine Loader Relationship Specialty Start Date End Date Needs Pcp, Assignment PCP - General 06/22/22 [place] [address] documented as of this encounter
--- OUTSIDE RECORDS SUMMARY | 2022-07-10 15:07 | XMS_ITS | Encounter Summary ---
:1990 Author Organization [facility] Address [address] [place] [address] Care Team Providers Name Role Phone Unavailable Primary Care Provider Unavailable Encounter Details Date Type Department Care Team Description 02/23/2014 Orders Only [facility] Screening for thyroid disord er (Primary Dx); [address] Pain in joint, multiple site s [place], [place] [address] Social History Tobacco Use Types [...] Team Description 08/10/2022 Appointment Gastroenterology Ashly Fortune, AIRSET CASTER, CHEF DE PARTIE [address] [facility] [[email or web address] [address] [place], [place] [id number] (Wo rk) documented as of this encounter [...] are in the results section. SM AND SM/VICE PRESIDENT OF MARKETING Routine 02/23/2014 1:40 PM Pain in joint, [...] 02/23/2014 2:00 PM C DT Performed at [facility], [address] [place] [address] Orlando Mckinley MD LAB_1 Performing Organization Address City/State/ZIP Code Phon e Number [facility] [phone] DNA DOUBLE STRANDED ANTIBODY (02/23/2014 1:40 PM [...] CDT PM CDT Narrative [facility] - 02/27/2014 2:39 PM C DT Performed at [facility], [address] [place] [address] ??[address] Orlando Mckinley MD LAB_1 Performing Organization Address [facility] Phon e Number [facility] [phone] RHEUMATOID FACTOR, QUANT(aka RFQ) [3025] (02/23/2014 1:40 PM CDT) P athologist Signature Quant. Rheum. <9 0 - 11 [facility] Factor IU/ml LABORATORIES Specimen Anatomical Collection Method Collection Time Receive d Time (Source) Location / / Volume Laterality 02/23/2014 1:40 PM 4 1:53 CDT PM CDT Narrative [facility] - 02/23/2014 4:13 PM C DT Performed at [facility], [address] [place] [address] ??[address] Orlando Mckinley MD LAB_1 Performing Organization Address [facility] Phon e Number [facility] [phone] LYME ANTIBODY [0537] (02/23/2014 1:40 PM CDT) P athologist Signature Lyme Antibody 0.38 0 - 0.74 [facility] OD Ratio [facility] Comment: Negative Specimen Anatomical Collection Method Collection Time Receive d Time (Source) Location / / Volume Laterality 02/23/2014 1:40 PM 4 1:53 CDT PM CDT Narrative [facility] - 02/26/2014 12:08 PM CDT Performed at [facility], [address] [place] [address] ??[address] Orlando Mckinley MD LAB_1 Performing Organization Address [facility] Phon e Number [facility] [phone] ANTI SS-A (RO) (02/23/2014 1:40 PM CDT) [facility] gist Method Time Signature Anti-SSA (Ro) <0.3 0 - 6.9 [facility] result U/mL LABORATORIES Anti-SSA (NOTE) [facility] Interpreta. Anti-SSA (Ro) ?Interpretation LABORATORIES VALUE ?of Test Results 0-6.9 ? Negative 7.0-10.0 ?Equivocal >10.0 ? Positive Specimen Anatomical Collection Method Collection Time Receive d Time (Source) Location / / Volume Laterality 02/23/2014 1:40 PM 4 1:53 CDT PM CDT Narrative [facility] - 02/26/2014 11:03 AM CDT Performed at [facility], [address] [place] [address] ??[address] Orlando Mckinley MD LAB_1 Performing Organization Address [facility] Phon e Number [facility] [phone] ANTI SS-B (LA) (02/23/2014 1:40 PM CDT) [facility] Method Time Signature Anti-SSB (La) <0.3 0 - 6.9 [facility] Result U/mL LABORATORIES Anti-SSB (NOTE) [facility] Interpreta. Anti-SSB (La) ?Interpretation LABORATORIES VALUE ?of Test Results 0-6.9 ? Negative 7.0-10.0 ?Equivocal >10.0 ? Positive Specimen Anatomical Collection Method Collection Time Receive d Time (Source) Location / / Volume Laterality 02/23/2014 1:40 PM 4 1:53 CDT PM CDT Narrative [facility] - 02/26/2014 11:03 AM CDT Performed at [facility], [address] [place] [address] Orlando Mckinley MD LAB_1 Performing Organization Address [facility] Phon e Number [facility] [phone] AUTOABY TO JO1 AG (02/23/2014 1:40 PM CDT) Component Value Ref Test Analysis Performed At [facility] Range Method Time Signature DAKOTA-1 Antibody <1.0 NEG [facility] Reference range: <1.0 NEG LABO RATORIES Unit: AI DAKOTA-1 Antibody (NOTE) [facility] Test performed at [facility] [address] ??[address] Director: MELVA SOTO MD Specimen Anatomical Collection Method Collection Time Receive d Time (Source) Location / / Volume Laterality 02/23/2014 1:40 PM 4 1:53 CDT PM CDT Orlando Mckinley MD LAB_1 Performing Organization Address City/[facility] Code Phon e Number [facility] [phone] AUTOABY TO SCL 70 AG (02/23/2014 1:40 PM CDT) Patholo gist Method Time Signature SCL-70 Ab <1.0 NEG [facility] Reference range: <1.0 NEG LAB[facility]ATORIES Unit: AI SCL-70 Ab (NOTE) [facility] Test performed at [facility] [address] ??[address] Director: MELVA SOTO MD Specimen Anatomical Collection Method Collection Time Receive d Time (Source) Location / / Volume Laterality 02/23/2014 1:40 PM 4 1:53 CDT PM CDT Orlando Mckinley MD LAB_1 Performing Organization Address City/[facility] Code Phon e Number [facility] [phone] SM AND SM/VICE PRESIDENT OF MARKETING ANTIBODIES (02/23/2014 1:40 PM CDT) Component Value Ref Test Analysis Performed At [facility] gist Range Method Time Signature Sm Antibody <1.0 NEG [facility] Reference range: <1.0 NEG LAB[facility]ATORIES Unit: AI Sm/VICE PRESIDENT OF MARKETING <1.0 NEG [facility] Antibody Reference range: <1.0 NEG LAB[facility]ATORIES Unit: AI Sm/VICE PRESIDENT OF MARKETING (NOTE) [facility] Antibody [facility] Test performed at [facility] [address] ??[phone] Director: MELVA SOTO MD Specimen Anatomical Collection Method Collection Time Receive d Time (Source) Location / / Volume Laterality 02/23/2014 1:40 PM 4 1:53 CDT PM CDT Orlando Mckinley MD LAB_1 Performing Organization Address City/[facility]/ZIP Code Phon e Number [facility] [phone] (ABNORMAL) C-REACTIVE PROTEIN(aka CRP) [0236] (02/23/2014 1:40 [...] 02/23/2014 4:13 PM C DT Performed at [facility], [address] [place] [address] ??[address] Orlando Mckinley MD LAB_1 Performing Organization Address [facility] Phon e Number [facility] [phone] CCP AB [4287] (02/23/2014 1:40 PM CDT) [...] - 02/26/2014 11:03 AM CDT Performed at [facility], [address] [place] [address] ??[address] Orlando Mckinley MD LAB_1 Performing Organization Address City/[facility] Phon e Number [facility] [phone] CREATININE / GFR [3711] (02/23/2014 1:40 PM [...] 02/23/2014 4:13 PM C DT Performed at [facility], [address] [place] [address] ??[address] Orlando Mckinley MD LAB_1 Performing Organization Address City/[facility]/ZIP Code Phon e Number [facility] [phone] CALCIUM [0109] (02/23/2014 1:40 PM CDT) P athologist Signature Calcium 10.1 8.4 - 10.2 [facility] mg/dl Specimen Anatomical Collection Method Collection Time Receive d Time (Source) Location / / Volume Laterality 02/23/2014 1:40 PM 4 1:53 CDT PM CDT Narrative [facility] - 02/23/2014 4:13 PM C DT Performed at [facility], [address] [place] [address] ??[address] Orlando Mckinley MD LAB_1 Performing Organization Address City/[facility] Phon e Number [facility] [phone] ALT (SGPT) [0129] (02/23/2014 1:40 PM CDT) athologist Signature ALT (SGPT) 20 0 - 69 U/L [facility] Specimen Anatomical Collection Method Collection Time Receive d Time (Source) Location / / Volume Laterality 02/23/2014 1:40 PM 4 1:53 CDT PM CDT Narrative [facility] - 02/23/2014 4:13 PM C DT Performed at [facility], [address] [place] [address] ??[address] Orlando Mckinley MD LAB_1 Performing Organization Address City/[facility]/ZIP Code Phon e Number [facility] [phone] AST [0128] (02/23/2014 1:40 PM CDT) P athologist Signature AST (SGOT) 27 0 - 66 U/L [facility] Specimen Anatomical Collection Method Collection Time Receive d Time (Source) Location / / Volume Laterality 02/23/2014 1:40 PM 4 1:53 CDT PM CDT Narrative [facility] - 02/23/2014 4:13 PM C DT Performed at [facility], [address] [place] [address] ??[address] Orlando Mckinley MD LAB_1 Performing Organization Address City/[facility] Phon e Number [facility] [phone] HEPATITIS C AB(aka ANTI-HCV) [0982] (02/23/2014 1:40 PM CDT) [facility] Method Time Signature Anti-HCV Negative (Non NEGNR [facility] Reactive) LABORATORIES Comment: Does Not Rule Out Infection wit h HCV Specimen Anatomical Collection Method Collection Time Receive d Time (Source) Location / / Volume Laterality 02/23/2014 1:40 PM 4 1:53 CDT PM CDT Narrative [facility] - 02/26/2014 12:15 PM CDT Performed at [facility], [address] [place] [address] ??[address] Orlando Mckinley MD LAB_1 Performing Organization Address City/[facility] Phon e Number [facility] [phone] (ABNORMAL) UA MICRO IF [3307] (02/23/2014 1:40 PM CDT) [facility] Method Time Signature Urine Color Yellow [facility] [...] 02/23/2014 1:59 PM C DT Performed at [facility], [facility] [place], [place] ??[address] Orlando Mckinley MD LAB_1 Performing Organization Address City/State/ZIP Code Phon e Number [facility] [phone] (ABNORMAL) HEMOGRAM/PLTS/DIFF [3656] (02/23/2014 1:40 PM CDT) [facility] gist Method Time Signature WBC 8.6 4.0 [...] [facility] Lymph 24 % [facility] [place] 6 % [facility] Eos 1 % [facility] Baso 0 % [facility] Neutrophil 5.9 1.8 - 7.7 [facility] Absolute k/ul LABORATORIES Lymph Absolute 2.1 1.0 - 4.8 [facility] k/ul LAB[facility] [place] Absolute 0.5 0.1 - 0.7 [facility] k/ul [...] 02/23/2014 3:50 PM C DT Performed at [facility], [address] ??[address] Orlando Mckinley MD LAB_1 Performing Organization Address City/State/ZIP Code Phon e Number [facility] [phone] (ABNORMAL) ESR [0017] (02/23/2014 1:40 PM CDT) P athologist Signature ESR 43 (H) 0 - 20 [facility] mm/hr Specimen Anatomical Collection Method Collection Time Receive d Time (Source) Location / / Volume Laterality 02/23/2014 1:40 PM 4 1:53 CDT PM CDT Narrative [facility] - 02/23/2014 4:49 PM C DT Performed at [facility], [address] [place] [address] ??[address] Orlando Mckinley MD LAB_1 Performing Organization Address City/State/ZIP Code Phon e Number [facility] [phone] documented in this encounter Visit Diagnoses Diagnosis Screening for thyroid disorder - Primary Pain in joint, multiple sites documented in this encounter
--- OUTSIDE RECORDS SUMMARY | 2022-07-10 15:07 | XMS_ITS | Encounter Summary ---
:1990 Author Organization [facility] Address [address] [place] [address] Care Team Providers Name Role Phone Unavailable Primary Care Provider Unavailable Reason for Visit Reason Onset Date Comments QUESTIONS, GENERAL 10/10/2013 Encounter Details Date Type Department Care Team Description 10/10/2013 Telephone [facility] Mail'Inside Unknown, Ph ysician QUESTIONS, GENERAL Obstetrics and Gynec ology [address] [address] [place], [place] [phone] (Wo rk) Social History Tobacco Use Types Packs/Day Years Used Date Smoking Tobacco: Former Smokeless Tobacco: Never Comments: only smoked occ Alcohol Use Standard Drinks/Week Comments Yes 0.8 (1 standard drink = 0.6 oz pure alco hol) soc Sex Assigned at Date Recorded Not on file documented as of this encounter Nursing Notes Marysol Vitale, CISCO, TELESALES SUPERVISOR - 10/17/2013 9:28 AM CDT Pt was called back-she needs to make appt w FP provider for abnl TSH[hypothyroid range] and elevatedlipids.Explained she needs to get her lipids managed to be able to continue OCPs-gave 3 mo for now to hold her and give enough time for appts.She will contact me after she has been to FP provider..Marysoladri Vitale NP 10/17/2013, 9:30 AM Brooke Linder [...] HER CHOLESTEROL CHECKED AT A CLINIC IN [place] AND THEN HAVE THE RESULTS SENT TO [facility] SO SHE CAN GET HER BC REFILLED Is it okay to leave detailed message on your voicemail? YES If after 3pm, can this wait until tomorrow? YES Heather Purdy documented in this encounter Plan of Treatment Upcoming Encounters Date Type Specialty Care Team Description 08/10/2022 Appointment Gastroenterology Ashly Fortune, CISCO, TELESALES SUPERVISOR [address] [facility] [address] [place] [address] (Wo rk) documented as of this encounter Visit Diagnoses Not on filedocumented in this encounter
--- OUTSIDE RECORDS SUMMARY | 2022-07-10 15:07 | XMS_ITS | Encounter Summary ---
:1990 Author Organization [employer] Address [address] [place] [address] Care Team Providers Name Role Phone Unavailable Primary Care Provider Unavailable Reason for Visit Reason Comments Refill Encounter Details Date Type Department Care Team Description 12/09/2010 Refill [facility] Elaine Latham MD Refill [address] [address] [address] [place], [place] [address] [place], [place] [address] (Wo rk) Social History Tobacco Use Types Packs/Day Years Used Date Smoking Tobacco: Never Alcohol Use Standard Drinks/Week Comments No 0 (1 standard drink = 0.6 oz pure alcoho l) Sex Assigned at Date Recorded Not on file documented as of this encounter Nursing Notes Zandra Bartholomew RN - 12/09/2010 1:13 PM CDTApproved Prescriptions: Disp Refills sertraline (AKA ZOLOFT) 50 MG tablet 135 Onk2Csw: TAKE 1.5 TABLETS BY MOUTH DAILY.Authorizing Provider: ELAINE MATUTE User: ZANDRA BARTHOLOMEW Zandra Bartholomew RN - 12/09/2010 1:13 PM CDT Refilled per standing orders. Zandra Bartholomew R.N. documented in this encounter Plan of Treatment Upcoming Encounters Date Type Specialty Care Team Description 08/10/2022 Appointment Gastroenterology Ashly Fortune, MUSIC EXECUTIVE, FACTORY MACHINE COMPUTER OPERATOR [address] [place], [place] [address] (Wo rk) documented as of this encounter Visit Diagnoses Not on filedocumented in this encounter
--- OUTSIDE RECORDS SUMMARY | 2022-07-10 15:07 | XMS_ITS | Encounter Summary ---
:1990 Author Organization [employer] Address [address] [place] [address] Care Team Providers Name Role Phone Unavailable Primary Care Provider Unavailable Encounter Details Date Type Department Care Team Description 12/14/2013 Orders Only [facility] Hypercholesterolemia; [address] Abnormal TSH; [place], [place] [address] Screening, iron deficiency a nemia [phone] Social History Tobacco Use Types Packs/Day Years Used Date Smoking Tobacco: Former Smokeless Tobacco: Never Comments: only smoked occ Alcohol Use Standard Drinks/Week Comments Yes 0.8 (1 standard drink = 0.6 oz pure alco hol) soc Sex Assigned at Date Recorded Not on file documented as of this encounter Progress Notes Elaine hSultz MD - 12/15/2013 8:11 AM CDT Quick Note: Normal lab,recheck TSH AT 3 MONTH. ELAINE SHULTZ MD documented in this encounter Plan of Treatment Upcoming Encounters Date Type Specialty Care Team Description 08/10/2022 Appointment Gastroenterology Ashly Fortune, PAINTER STRUCTURAL STEEL, CARD FILER [address] [place], [place] [address] (Wo rk) documented as of this encounter [...] 12/14/2013 PM CDT 12:36 PM CDT Narrative [facility] - 12/14/2013 3:46 PM C DT Performed at [facility], [address] [place] [address] ??[id number] Marysol Vitale APRN, MATILDA LAB_[address] [facility]/ZIP Code Phon e Number [facility] [phone] FREE T4 (12/14/2013 12:34 PM CDT) athologist Signature T4, Free 1.0 0.8 - 2.2 [facility] ng/dl Specimen Anatomical Collection Method Collection Time Receive d Time (Source) Location / / Volume Laterality 12/14/2013 12:34 12/14/2013 PM CDT 12:36 PM CDT Narrative [facility] - 12/14/2013 5:10 PM C DT Performed at [facility], [address] [place] [address] ??[phone] Elaine Shultz MD LAB_1 Performing Organization Address City/[facility]/ZIP Code Phon e Number [facility] [phone] T3, FREE, SERUM (12/14/2013 12:34 PM CDT) athologist Signature T3,Free 4.5 2.8 - 5.2 [facility] pg/ml Specimen Anatomical Collection Method Collection Time Receive d Time (Source) Location / / Volume Laterality 12/14/2013 12:34 12/14/2013 PM CDT 12:36 PM CDT Narrative [facility] - 12/14/2013 5:10 PM C DT Performed at [facility], [address] [place] [address] ??[id number] Elaine Shultz MD LAB_1 Performing Organization Address City/[facility]/ZIP Code Phon e Number [facility] [phone] ALT (SGPT) (12/14/2013 12:34 PM CDT) athologist Signature ALT (SGPT) 31 0 - 69 U/L [facility] Specimen Anatomical Collection Method Collection Time Receive d Time (Source) Location / / Volume Laterality 12/14/2013 12:34 12/14/2013 PM CDT 12:36 PM CDT Narrative [facility] - 12/14/2013 4:52 PM C DT Performed at [facility], [address] [place] [address] ??[id number] Elaine Shultz MD LAB_1 Performing Organization Address City/[facility]/ZIP Code Phon e Number [facility] [phone] AST (12/14/2013 12:34 PM CDT) athologist Signature AST (SGOT) 44 0 - 66 U/L [facility] Specimen Anatomical Collection Method Collection Time Receive d Time (Source) Location / / Volume Laterality 12/14/2013 12:34 12/14/2013 PM CDT 12:36 PM CDT Narrative [facility] - 12/14/2013 4:52 PM C DT Performed at [facility], [address] [place] [address] ??[phone] Elaine Shultz MD LAB_1 Performing Organization Address City/[facility]/ZIP Code Phon e Number [facility] [phone] documented in this encounter Visit Diagnoses Diagnosis Hypercholesterolemia Pure hypercholesterolemia Abnormal TSH Other abnormal clinical finding Screening, iron deficiency anemia Screening for iron deficiency anemia documented in this encounter
--- OUTSIDE RECORDS SUMMARY | 2022-07-10 15:07 | XMS_ITS | Encounter Summary ---
:1990 Author Organization [employer] Address [address] [place] [address] Care Team Providers Name Role Phone Unavailable Primary Care Provider Unavailable Reason for Visit Reason Comments JOINT PAIN knees and wrists. Labs Needed follow up on Vit D. Pt is raine e for follow up cholest., but she is not fasting. Encounter Details Date Type Department Care Team Description 12/16/2011 Office Visit Elaine López, Carl hralgia (Primary Dx); Practice Abnormal laboratory test [address] [place] [address] [place] [address] (Wo rk) Social History Tobacco Use Types [...] Patient Instructions Patient InstructionsElaine Shultz MD - 12/16/2011 2:44 PM CDT Images [...] your doctor if you can take an akiy-dqb-sallkoi medicine. ?? Use a cane, crutch, walker, [...] Where can you learn more? Go to [employer] and enter Z807 in the search box. ?? [phone] [employer]. Content Version: 9.2.900595; Last Revised: November 10, 2010 Patellofemoral Pain [...] Where can you learn more? Go to [employer] and enter U786 in the search box. ?? [phone] [employer]. Content Version: 9.2.623192; Last Revised: May 08, 2011 documented in [...] Dictated: 12/16/2011 15:07:10 Transcribed: 12/17/2011 09:43:25 Job: [id number] Doc: [id number] cc: documented in this encounter Plan of Treatment Upcoming Encounters Date Type Specialty Care Team Description 08/10/2022 Appointment Gastroenterology Ashly Fortune, SPECIALIST ICU, SQUAD SERGEANT [address] [place] [address] (Wo rk) documented as of this encounter Results (ABNORMAL) ESR (12/16/2011 2:57 PM CDT) P athologist Signature ESR 28 (H) 0 - 20 [facility] mm/hr Specimen Anatomical Collection Method Collection Time Receive d Time (Source) Location / / Volume Laterality 12/16/2011 2:57 PM 2 2:59 CDT PM CDT Elaine Shultz MD LAB_1 Performing Organization Address City/[facility] Phon e Number [employer] [phone] [address] (ABNORMAL) C-REACTIVE PROTEIN (12/16/2011 2:57 PM CDT) [facility] gist Method Time Signature C-Reactive 1.5 (H) 0.0 - 0.9 [facility] Protein mg/dl Comment: Note: results are expressed in mg/dL. Specimen Anatomical Collection Method Collection Time Receive d Time (Source) Location / / Volume Laterality 12/16/2011 2:57 PM 2 2:59 CDT PM CDT Elaine Shultz MD LAB_1 Performing Organization Address City/[facility] Phon e Number [facility] [phone] [facility] [address] [phone] RHEUMATOID FACTOR, QUANT (12/16/2011 2:57 PM CDT) athologist Signature Quant. Rheum. <9 0 - 11 [facility] Factor IU/ml Specimen Anatomical Collection Method Collection Time Receive d Time (Source) Location / / Volume Laterality 12/16/2011 2:57 PM 2 2:59 CDT PM CDT Elaine Shultz MD LAB_1 Performing Organization Address [facility] Phon e Number [facility] [phone] [phone] (ABNORMAL) MELISSA SCREEN (12/16/2011 2:57 PM CDT) [facility] Method Time Signature MELISSA Screen Positive (A) NEG [facility] Comment: This is a test that requires interpretat ion by your provider and does not necessarily indicate that you have a specific disease. Specimen Anatomical Collection Method Collection Time Receive d Time (Source) Location / / Volume Laterality 12/16/2011 2:57 PM 2 2:59 CDT PM CDT Elaine Shultz MD LAB_1 Performing Organization Address [facility] Phon e Number [facility] [phone] [phone] (ABNORMAL) HEMOGRAM/PLTS (12/16/2011 2:57 PM CDT) athologist Signature WBC 5.0 4.0 - 11.0 [facility] k/ul RBC 4.20 4.0 - 5.2 [facility] M/ul Hemoglobin 11.7 (L) 12.0 - [facility] 16.0 g/dl HCT 35.7 (L) 36.0 - [facility] 46.0 % MCV 85.0 80 - 100 [facility] fl MCH 27.9 26 - 34 pg [facility] MCHC 32.8 32 - 36 [facility] g/dl RDW 12.7 11.5 - [facility] 14.5 % Platelets 285 150 - 450 [facility] k/ul Specimen Anatomical Collection Method Collection Time Receive d Time (Source) Location / / Volume Laterality 12/16/2011 2:57 PM 2 2:59 CDT PM CDT Elaine Shultz MD LAB_1 Performing Organization Address [facility] Phon e Number [facility] M.dot [phone] [address] VITAMIN D 25-HYDROXY, TOTAL (V77.99) (12/16/2011 2:57 PM CDT) athologist Signature Vitamin 31.3 30 - 80 [facility] D,25-OH, Tot ng/mL Comment: Deficiency: ??< 20 ng/mL Insufficiency: ??20-29 ng/mL Optimum Level: ??30-80 ng/mL Possible Toxicity: > 80 ng/mL Performed at [facility] Specimen Anatomical Collection Method Collection Time Receive d Time (Source) Location / / Volume Laterality 12/16/2011 2:57 PM 2 2:58 CDT PM CDT Elaine Shultz MD LAB_1 Performing Organization Address [facility] Phon e Number [facility] M.dot [phone] [address] documented in this encounter Visit Diagnoses Diagnosis Arthralgia - Primary Pain in joint, site unspecified Abnormal laboratory test Other abnormal clinical finding documented in this encounter
--- OUTSIDE RECORDS SUMMARY | 2022-07-10 15:07 | XMS_ITS | Encounter Summary ---
:1990 Author Organization [employer] Address [address] [place] [address] Care Team Providers Name Role Phone Unavailable Primary Care Provider Unavailable Reason for Visit Reason Onset Date Comments Refill 05/27/2010 Encounter Details Date Type Department Care Team Description 05/27/2010 Refill [facility] maddy Elaine Shultz MD Refill [address] [address] [address] [place], [place] [address] [place], [place] [address] (Wo rk) Social History Tobacco Use Types [...] Team Description 08/10/2022 Appointment Gastroenterology Ashly Fortune, INFORMATION SYSTEMS OPERATOR, LASTING FLOORWORKER [address] [facility] [address] [place] [address] (Wo rk) documented as of this encounter Visit Diagnoses Diagnosis Major depressive disorder, single episod e, moderate (HRC) Major depressive disorder, single episod e, moderate documented in this encounter
--- OUTSIDE RECORDS SUMMARY | 2022-07-10 15:07 | XMS_ITS | Encounter Summary ---
:1990 Author Organization [employer] Address [address] [place] [address] Care Team Providers Name Role Phone Unavailable Primary Care Provider Unavailable Reason for Visit Reason Comments ROUTINE HEALTH MAINTENANCE Encounter Details Date Type Department Care Team Description 05/26/2013 [facility] Vasques general medical examination at health care facility (Primary Dx); Obstetrics and Angelo, CISCO, MATRIX SUPERVISOR Screening for malignant neoplasm of the cervix; Gynecology Screening examination for ve nereal disease; [address] Elevated lipids [place], [place] [address] Social History Tobacco Use Types [...] documented in this encounter Progress Notes Nile Jerry APRN, MATRIX SUPERVISOR - 05/26/2013 10:58 AM CDT SUBJECTIVE: [...] findings: external genitalia normal, Bartholin's glands, urethra, [place]'s glands negative, vaginal mucosa normal, cervix clear, normal sized uterus, adnexae negative. 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 Nile Jerry CNP Rajwinder Anne CMA - 05/26/2013 10:48 AM CDT Pre-visit planning Does patient want a mushroom packer present during exam? No PARA 0000 Health Maintenance history: PAP SMEAR NEVER Health Maintenance history: GC CHLAMYDIA AGE 26 AND UNDER 12/2011 neg Health Maintenance history: LIPID SCREENING 10/2011 371/68 Trig 168 ldl 269 History of Abnormal Pap? No Immunizations up to date? Yes Tdap 10/08/11 Signature for PVP DAFNE MERINO [] Today's visit: Chief Complaint Patient presents with ??? ROUTINE HEALTH MAINTENANCE Do you need any refills? Yes: ocp's PARA: Patient's last menstrual period was 05/21/2013. BP Readings from Last 1 Encounters: 12/16/11 127/73 Rajwinder Anne CMA documented in this encounter Plan of Treatment Upcoming Encounters Date Type Specialty Care Team Description 08/10/2022 Appointment Gastroenterology Ashly Fortune APRN, MATILDA [address] [facility] [address] [place], [place] [phone] (Wo rk) documented as of this encounter [...] PM CDT) P athologist Signature Source Cervix [facility] Chlamydia Negative NEG [facility] Comment: Test Performed by Director Occupational Mediated Amplification GC (N. gonorrhoeae) Negative NEG [facility] Comment: Test Performed by Director Occupational Mediated Amplification Specimen Anatomical Collection Method Collection Time Receive d Time (Source) Location / / Volume Laterality 05/26/2013 4:30 PM 3 4:35 CDT PM CDT Narrative [facility] - 05/29/2013 2:20 PM C DT Performed at [facility], [address] [place] [address] ??[id number] Nile Jerry SPRUE KNOCKER, MATRIX SUPERVISOR LAB_1 Performing Organization Address City/State/ZIP Code Phon e Number [facility] [phone] PAP TEST, ROUTINE (05/26/2013 4:30 PM CDT) Component Value Ref Test Analysis Performed At Patholo gist Range Method Time Signature Cytology (NOTE) [facility] Flame Cutter Cytology Report LABORATORI ES Patient Name: JULIETTE GAMING Taken: 05/26/2013 Received: 05/29/2013 Reported: 06/08/2013 Physician(s): NILE JERRY ([id number]) ?Source of Specimen Pap Test, Routine Cervical/Endocervical: [...] [facility] Department of Pathology [address] [place] [address] ??[id number] Specimen Anatomical Collection Method Collection Time Receive d Time (Source) Location / / Volume Laterality 05/26/2013 4:30 PM 3 9:22 CDT AM CDT Nile Jerry SPRUE KNOCKER, MATRIX SUPERVISOR LAB_1 Performing Organization Address City/State/ZIP Code Phon e Number [facility] [phone] documented in this encounter Visit Diagnoses Diagnosis Routine general medical examination at [facility] facility - Primary Routine general medical examination at [facility] Screening for malignant neoplasm of the cervix Screening examination for venereal disea se Elevated lipids (HRC) Other and unspecified hyperlipidemia documented in this encounter
--- OUTSIDE RECORDS SUMMARY | 2022-07-10 15:07 | XMS_ITS | Encounter Summary ---
:1990 Author Organization [employer] Address [address] [place] [address] Care Team Providers Name Role Phone Unavailable Primary Care Provider Unavailable Reason for Visit Reason Comments Refill Encounter Details Date Type Department Care Team Description 02/22/2013 Refill [facility] Samm Dodd MD Refill Obstetrics and Gynec ology [address] [address] [place] [address] [place], [place] [address] [phone] Social History Tobacco Use Types Packs/Day Years [...] Care Team Description 08/10/2022 Appointment Gastroenterology Ashly Fortuen, CISCO, ATTENUATOR [address] [place], [place] [address] (Wo rk) documented as of this encounter Visit Diagnoses Not on filedocumented in this encounter
--- OUTSIDE RECORDS SUMMARY | 2022-07-10 15:07 | XMS_ITS | Encounter Summary ---
:1990 Author Organization [employer] Address [address] [place] [address] Care Team Providers Name Role Phone Unavailable Primary Care Provider Unavailable Reason for Visit Reason Comments LAB RESULTS Discuss lab results that aliyah healy done in September. Encounter Details Date Type Department Care Team Description 12/14/2013 Office Visit Elaine López Fam ilial hyperlipidemia (Primary Dx); Practice Abnormal TSH [address] Rogelio Lloyd [facility] [address] [place] [place] [phone] [address] Social History Tobacco Use Types Packs/Day Years [...] Where can you learn more? Go to [employer]/Dopplr and enter I865 in the search box. Last Revised: October 20, 2011 ?? [phone] [email or web address]. - Learning About High Cholesterol What is high [...] Where can you learn more? Go to [employer] and enter Q621 in the search box. Last Revised: September 21, 2012 ?? [phone] [email or web address]. Thyroid-Stimulating Hormone (TSH) Test: About This Test [...] Where can you learn more? Go to [employer] and enter K551 in the search box. Last Revised: December 16, 2012 ?? [phone] [employer]. Low Cholesterol, Low Saturated Fat, Low [...] white bread, white, wheat, rye, raisin, oatmeal, Luxembourgish, Somali and Azerbaijani muffin bread ?? Azerbaijani muffins, plain dinner rolls, hard rolls, hamburger and hot dog rolls ?? Saltines, matzo, michael crackers ?? Baked products and quick breads made with egg whites, egg substitutes or allowed whole eggs, skimmilk and allowed fats ?? Egg and cheese breads. Commercially prepared sweetrolls, donuts, muffins, biscuits, pancakes and waffles ?? Variety democrat crackers, such as Ritz and HiHo's Cereals [...] or sour cream ?? Polyunsaturated cream substitutes. [place] and peanut oils may be used ?? [...] Cream sauces made with allowed ingredients ?? Salol ?? Use nuts in moderation, except those [...] Dictated: 12/14/2013 16:25:25 Transcribed: 12/15/2013 07:01:06 Job: [id number] Doc: [id number] cc: documented in this encounter Plan of Treatment Upcoming Encounters Date Type Specialty Care Team Description 08/10/2022 Appointment Gastroenterology Ashly Fortune, WELDER TACK, CHIEF HYDROELECTRIC STATION OPERATOR [address] [place] [address] (Wo rk) documented as of this encounter Results FREE T4 (12/14/2013 12:34 PM CDT) athologist Signature T4, Free 1.0 0.8 - 2.2 [facility] ng/dl Specimen Anatomical Collection Method Collection Time Receive d Time (Source) Location / / Volume Laterality 12/14/2013 12:34 12/14/2013 PM CDT 12:36 PM CDT Narrative [facility] - 12/14/2013 5:10 PM C DT Performed at [facility], [address] [place] [address] ??[id number] Elaine Shultz MD LAB_1 Performing Organization Address City/[facility] Phon e Number [facility] [phone] T3, FREE, SERUM (12/14/2013 12:34 PM CDT) athologist Signature T3,Free 4.5 2.8 - 5.2 [facility] pg/ml Specimen Anatomical Collection Method Collection Time Receive d Time (Source) Location / / Volume Laterality 12/14/2013 12:34 12/14/2013 PM CDT 12:36 PM CDT Narrative [facility] - 12/14/2013 5:10 PM C DT Performed at [facility], [address] [place] [address] ??[id number] Elaine Shultz MD LAB_1 Performing Organization Address City/[facility] Phon e Number [facility] [phone] ALT (SGPT) (12/14/2013 12:34 PM CDT) athologist Signature ALT (SGPT) 31 0 - 69 U/L [facility] Specimen Anatomical Collection Method Collection Time Receive d Time (Source) Location / / Volume Laterality 12/14/2013 12:34 12/14/2013 PM CDT 12:36 PM CDT Narrative [facility] - 12/14/2013 4:52 PM C DT Performed at [facility], [address] [place] [address] ??[phone] Elaine Shultz MD LAB_1 Performing Organization Address City/[facility]/ZIP Code Phon e Number [facility] [phone] AST (12/14/2013 12:34 PM CDT) athologist Signature AST (SGOT) 44 0 - 66 U/L [facility] Specimen Anatomical Collection Method Collection Time Receive d Time (Source) Location / / Volume Laterality 12/14/2013 12:34 12/14/2013 PM CDT 12:36 PM CDT Narrative [facility] - 12/14/2013 4:52 PM C DT Performed at [facility], [address] [place] [address] ??[id number] Elaine Shultz MD LAB_1 Performing Organization Address City/State/ZIP Code Phon e Number [facility] [phone] documented in this encounter Visit Diagnoses Diagnosis Familial hyperlipidemia - Primary Other and unspecified hyperlipidemia Abnormal TSH Other abnormal clinical finding Hypercholesterolemia Pure hypercholesterolemia Abnormal TSH Other abnormal clinical finding Screening, iron deficiency anemia Screening for iron deficiency anemia documented in this encounter
--- OUTSIDE RECORDS SUMMARY | 2022-07-10 15:07 | XMS_ITS | Encounter Summary ---
:1990 Author Organization [employer] Address [address] [place] [address] Care Team Providers Name Role Phone Unavailable Primary Care Provider Unavailable Encounter Details Date Type Department Care Team Description 10/31/2013 Orders Only Rogelio Lloyd Marysol Childs [facility] Practice L, COILED TUBING SUPERVISOR, AIRCRAFT STRESS ANALYST examination, [address] unspecified (Primary Rogelio Lloyd, [place] [address] Dx) [phone] Social History Tobacco Use Types Packs/Day Years [...] Team Description 08/10/2022 Appointment Gastroenterology Ashly Fortune, COILED TUBING SUPERVISOR, AIRCRAFT STRESS ANALYST [address] [place], [place] [address] (Wo rk) documented as of this encounter [...] EXTERNAL 5.60 RESULTS MIU/ML Comment: PERFORMED AT [facility] [place], [place] Specimen (Source) Anatomical Collection Method Collection Time Re ceived Time Location / / Volume Laterality 10/13/2013 9:24 AM CDT Marysol Vitale APRN, CNP LAB_1 Performing Organization Address [facility] Phon e Number EXTERNAL RESULTS (ABNORMAL) LIPID PANEL AND DIRECT LDL(IF NEEDED) (10/13/2013 9:24 AM CDT) athologist Signature Cholesterol 342 (A) 0.0 - 200.0 EXTERNAL MG/DL RESULTS Comment: PERFORMED AT [facility] [place], [place] Triglyceride 193 30.0 - 200.0 MG/DL EXTERNAL RESULTS Comment: PERFORMED AT [facility] [place], [place] HDL 68 (A) 40 - 60 MG/DL EXTERNAL RESULTS Comment: PERFORMED AT [facility] [place], [place] LDL, Calc. 235 (A) 0 - 99 MG/DL EXTERNAL RESULTS Comment: PERFORMED AT [place], [place] Specimen (Source) Anatomical Collection Method Collection Time Re ceived Time Location / / Volume Laterality 10/13/2013 9:24 AM CDT Marysol Vitale APRN, MATILDA LAB_1 Performing Organization Address [facility] Phon e Number EXTERNAL RESULTS (ABNORMAL) LDL CHOLESTEROL, DIRECT MEASURED (10/13/2013 9:24 AM CDT) athologist Signature LDL, Direct 263 (A) 0 - 99 EXTERNAL MG/DL RESULTS Comment: PERFORMED AT [facility] [place], [place] Specimen (Source) Anatomical Collection Method Collection Time Re ceived Time Location / / Volume Laterality 10/13/2013 9:24 AM CDT Marysol Vitale APRN, CNP LAB_1 Performing Organization Address [facility] Phon e Number EXTERNAL RESULTS HEMOGLOBIN, BLOOD (10/13/2013 9:24 AM CDT) athologist Signature Hemoglobin 12.6 12.0 - 16.0 EXTERNAL GM/DL RESULTS Comment: PERFORMED AT [facility] [place], [place] Specimen (Source) Anatomical Collection Method Collection Time Re ceived Time Location / / Volume Laterality 10/13/2013 9:24 AM CDT Marysol Vitale APRN, CNP LAB_1 Performing Organization Address [facility] Phon e Number EXTERNAL RESULTS GLUCOSE - FASTING > 8 HRS FASTING (V77.1) (10/13/2013 9:24 AM CDT) athologist [facility] Glucose 90 70 - 99 EXTERNAL MG/DL RESULTS Comment: PERFORMED AT [facility] [place], [place] Specimen (Source) Anatomical Collection Method Collection Time Re ceived Time Location / / Volume Laterality 10/13/2013 9:24 AM CDT Marysol Vitale APRN, MATILDA LAB_1 Performing Organization Address [facility] Phon e Number EXTERNAL RESULTS documented in this encounter Visit Diagnoses Diagnosis Laboratory examination, unspecified - Pr imary documented in this encounter
--- OUTSIDE RECORDS SUMMARY | 2022-07-10 15:07 | XMS_ITS | Encounter Summary ---
:1990 Author Organization [employer] Address [address] [place] [address] Care Team Providers Name Role Phone Unavailable Primary Care Provider Unavailable Reason for Visit Reason Comments MEDICATION CHECK refill Encounter Details Date Type Department Care Team Description 07/29/2010 Office Visit Elaine López Maj or depressive disorder, single episode, moderate (Primary Dx); Practice MD Contraceptive surveillance [address] [place] [address] [place] [phone] Social History Tobacco Use Types Packs/Day Years Used Date Smoking Tobacco: Never Alcohol Use Standard Drinks/Week Comments No 0 (1 standard drink = 0.6 oz pure alcoho l) Sex Assigned at Date Recorded Not on file documented as of this encounter Last Filed Vital Signs Vital Sign Reading Time Taken Comments Blood Pressure 104/54 07/29/2010 4:48 PM TOOL TECHNICIAN Pulse 80 07/29/2010 4:48 PM TOOL TECHNICIAN Temperature - - Respiratory Rate - - Oxygen Saturation - - Inhaled Oxygen Concentration - - Weight 58.5 kg (129 lb) 07/29/2010 4:48 PM TOOL TECHNICIAN Height - - Body Mass Index 23.79 03/06/2010 4:05 PM CDT documented in this encounter Progress Notes Elaine Shultz MD - 07/30/2010 10:53 AM TOOL TECHNICIAN DATE OF SERVICE: 07/29/2010 This is a [...] Dictated: 07/29/2010 17:10:41 Transcribed: 07/30/2010 08:46:13 Job: [id number] Doc: [id number] cc: TECHNICIAN Elaine Shultz MD - 07/29/2010 5:10 PM CST This office note has been dictated. Elaine Shultz MD TECHNICIAN documented in this encounter Plan of Treatment Upcoming Encounters Date Type Specialty Care Team Description 08/10/2022 Appointment Gastroenterology Ashly Fortune, PLUGGER MAN, SUPERVISOR FABRICATION DEPARTMENT [address] [place] [address] (Wo rk) documented as of this encounter Visit Diagnoses Diagnosis Major depressive disorder, single episod e, moderate ([facility]) - Primary Major depressive disorder, single episod e, moderate Contraceptive surveillance Contraceptive surveillance, unspecified documented in this encounter
--- OUTSIDE RECORDS SUMMARY | 2022-07-10 15:07 | XMS_ITS | Encounter Summary ---
:1990 Author Organization [facility] Address [address] [place] [address] Care Team Providers Name Role Phone Unavailable Primary Care Provider Unavailable Encounter Details Date Type Department Care Team Description 10/08/2011 Orders Only [facility] Dairy product intolerance; [address] Bloating; [place], [place] [address] Hypercholesterolemia [phone] Social History Tobacco Use Types Packs/Day Years Used Date Smoking Tobacco: Never Smokeless Tobacco: Never Alcohol Use Standard Drinks/Week Comments No 0 (1 standard drink = 0.6 oz pure alcoho l) Sex Assigned at Date Recorded Not on file documented as of this encounter Plan of Treatment Upcoming Encounters Date Type Specialty Care Team Description 08/10/2022 Appointment Gastroenterology Ashly Fortune, DUPLICATING MACHINE SERVICER, GROOVER AND STRIPER OPERATOR [address] [facility] [address] [place], [place] [address] (Wo rk) documented as of this encounter Procedures Procedure Name Priority Date/Time Associated Diagnosis Comme nts BASIC METABOLIC Routine 10/08/2011 11:07 Dairy product i ntolerance Results for this PANEL,FASTING AM DIRECTOR [facility] Bloating procedure are in the results section. LIPID PANEL AND Routine 10/08/2011 11:07 Hypercholesterolemia Results for this DIRECT LDL(IF AM DIRECTOR CON[facility] AFFAIRS procedure are in NEEDED) the results section. VITAMIN D Routine 10/08/2011 11:07 Bloating Results for this 25-HYDROXY, TOTAL AM [facility] procedure are in the results section. COMPLETE BLOOD Waiting 10/08/2011 11:07 Dairy product i ntolerance Results for this COUNT-NO DIFF AM DIRECTOR [facility]AIRS Bloating procedure are in the results section. ALT (SGPT) Routine 10/08/2011 11:07 Bloating Results for this AM DIRECTOR [facility] AFFAIRS procedure are i n the results section. AST Routine 10/08/2011 11:07 Bloating Results for this AM DIRECTOR CON[facility] AFFAIRS procedure are i n the results section. documented in this encounter Results BASIC METABOLIC PANEL,FASTING (10/08/2011 11:07 AM DIRECTOR CON[facility] AFFAIRS) Analysis Performed At Patho logist Time Signature [...] / Volume Laterality 10/08/2011 11:07 10/08/2011 AM DIRECTOR CON[facility] AFFAIRS 11:08 AM DIRECTOR CON[facility] AFFAIRS Paul Taveras MD LAB_1 Performing Organization Address City/State/ZIP Code Phon e Number [facility] [phone] [facility] [address] [address] AST (10/08/2011 11:07 AM DIRECTOR CONSUMER AFFAIRS) P athologist Signature AST (SGOT) 22 0 - 55 U/L [facility] Specimen Anatomical Collection Method Collection Time Receive d Time (Source) Location / / Volume Laterality 10/08/2011 11:07 10/08/2011 AM DIRECTOR CONSUM[facility] AFFAIRS 11:08 AM DIRECTOR CON[facility] AFFAIRS Paul Taveras MD LAB_1 Performing Organization Address [facility]/[place] [facility] [place] Number [facility] [phone] [facility] [address] [place] [phone] ALT (SGPT) (10/08/2011 11:07 AM DIRECTOR CONSUMER AFFAIRS) athologist Signature ALT (SGPT) 15 0 - 69 U/L [facility] Specimen Anatomical Collection Method Collection Time Receive d Time (Source) Location / / Volume Laterality 10/08/2011 11:07 10/08/2011 AM DIRECTOR CONSUMER AFFAIRS 11:08 AM DIRECTOR CON[facility] AFFAIRS Paul Taveras MD LAB_1 Performing Organization Address [facility] Phon e Number [facility] [phone] [phone] (ABNORMAL) LIPID PANEL AND DIRECT LDL(IF NEEDED) (10/08/2011 11:07 AM DIRECTOR CON[facility]ER AFFAIRS) [facility] Method Time Signature Cholesterol 371 (H) 0 - 199 [facility] mg/dl Triglyceride 168 (H) 0 - 149 [facility] mg/dl HDL 68 >40 mg/dl [facility] LDL, Calc. 269 (H) 0 - 129 [facility] mg/dl Non HDL Chol, 303 mg/dl [facility] Calc Comment: Non HDLC goal is 30 mg/dl above the patient's desired LDLC goal. Hours Fasting 12 hours [facility] Specimen Anatomical Collection Method Collection Time Receive d Time (Source) Location / / Volume Laterality 10/08/2011 11:07 10/08/2011 AM DIRECTOR CON[facility] AFFAIRS 11:08 AM DIRECTOR CON[facility]ER AFFAIRS Paul Taveras MD LAB_1 Performing Organization Address [facility] Phon e Number [facility] [phone] [phone] (ABNORMAL) VITAMIN D 25-HYDROXY, TOTAL (V77.99) (10/08/2011 11:07 AM DIRECTOR CONSUMER AFFAIRS) [facility] Method Time Signature Vitamin 21.3 (L) 30 - 80 [facility] D,25-OH, Tot ng/mL Comment: Deficiency: ??< 20 ng/mL Insufficiency: ??20-29 ng/mL Optimum Level: ??30-80 ng/mL Possible Toxicity: > 80 ng/mL Performed at [facility] Specimen Anatomical Collection Method Collection Time Receive d Time (Source) Location / / Volume Laterality 10/08/2011 11:07 10/08/2011 AM DIRECTOR CONSUMER AFFAIRS 11:09 AM DIRECTOR CON[facility] AFFAIRS Paul Taveras MD LAB_1 Performing Organization Address [facility] Phon e Number [employer] [phone] [address] (ABNORMAL) HEMOGRAM/PLTS (10/08/2011 11:07 AM DIRECTOR CONSUM[facility] AFFAIRS) athologist Signature WBC 5.7 4.0 - 11.0 [facility] k/ul RBC 4.75 4.0 - 5.2 [facility] M/ul Hemoglobin 13.1 12.0 - [facility] 16.0 g/dl HCT 40.0 36.0 - [facility] 46.0 % MCV 84.0 80 - 100 [facility] fl MCH 27.6 26 - 34 pg [facility] MCHC 32.8 32 - 36 [facility] g/dl RDW 11.2 (L) 11.5 - [facility] 14.5 % Platelets 326 150 - 450 [facility] k/ul Specimen Anatomical Collection Method Collection Time Receive d Time (Source) Location / / Volume Laterality 10/08/2011 11:07 10/08/2011 AM DIRECTOR CONSUMER AFFAIRS 11:08 AM DIRECTOR CON[facility] AFFAIRS Paul Taveras MD LAB_1 Performing Organization Address City/[facility] Phon e Number [employer] [phone] [address] documented in this encounter Visit Diagnoses Diagnosis Dairy product intolerance Other specified intestinal malabsorption Bloating Flatulence, eructation, and gas pain Hypercholesterolemia Pure hypercholesterolemia documented in this encounter
--- OUTSIDE RECORDS SUMMARY | 2022-07-10 15:07 | XMS_ITS | Encounter Summary ---
:1990 Author Organization [employer] Address [address] [place] [address] Care Team Providers Name Role Phone Unavailable Primary Care Provider Unavailable Reason for Visit Reason Comments CONSULT Encounter Details Date Type Department Care Team Description 02/23/2014 Office Visit [facility] Orlando Lester Pain in joint, multiple site s (Primary Dx); [address] 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 hasmoved back home and [...] Team Description 08/10/2022 Appointment Gastroenterology Ashly Fortune, FIELD UNDERWRITER, FOREIGN LANGUAGES DEPARTMENT CHAIR [address] [facility] [address] [place] [address] (Wo rk) documented as of this encounter Results DNA DOUBLE STRANDED ANTIBODY (02/23/2014 1:40 PM CDT) Component Value Ref Test Analysis Performed At [facility] Range Method Time Signature dsDNA 6 [...] 02/27/2014 2:39 PM C DT Performed at [facility], [address] [place] [address] ??[phone] Orlando Mckinley MD LAB_1 Performing Organization Address City/State/ZIP Code Phon e Number [facility] [phone] RHEUMATOID FACTOR, QUANT(aka RFQ) [3025] (02/23/2014 1:40 PM CDT) athologist Signature Quant. Rheum. <9 0 - 11 [facility] Factor IU/ml LAB[facility]ATORIES Specimen Anatomical Collection Method Collection Time Receive d Time (Source) Location / / Volume Laterality 02/23/2014 1:40 PM 4 1:53 CDT PM CDT Narrative [facility] - 02/23/2014 4:13 PM C DT Performed at [facility], [address] [place] [address] ??[phone] Oralndo Mckinley MD LAB_1 Performing Organization Address [facility] Phon e Number [facility] [phone] LYME ANTIBODY [0537] (02/23/2014 1:40 PM CDT) athologist Signature Lyme Antibody 0.38 0 - 0.74 [facility] OD Ratio LAB[facility] Comment: Negative Specimen Anatomical Collection Method Collection Time Receive d Time (Source) Location / / Volume Laterality 02/23/2014 1:40 PM 4 1:53 CDT PM CDT Narrative [facility] - 02/26/2014 12:08 PM CDT Performed at [facility], [address] [place] [address] ??[phone] Orlando Mckinley MD LAB_1 Performing Organization Address [facility] Phon e Number [facility] [phone] ANTI SS-A (RO) (02/23/2014 1:40 PM CDT) [employer] gist Method Time Signature Anti-SSA (Ro) <0.3 0 - 6.9 [facility] result U/mL LABORATORIES Anti-SSA (NOTE) [facility] Interpreta. Anti-SSA (Ro) ?Interpretation LABORATORIES VALUE ?of Test Results 0-6.9 ? Negative 7.0-10.0 ?Equivocal >10.0 ? Positive Specimen Anatomical Collection Method Collection Time Receive d Time (Source) Location / / Volume Laterality 02/23/2014 1:40 PM 4 1:53 CDT PM CDT Narrative [facility] - 02/26/2014 11:03 AM CDT Performed at [facility], [address] [place] [address] ??[phone] Orlando Mckinley MD LAB_1 Performing Organization Address [facility] Phon e Number [facility] [phone] ANTI SS-B (LA) (02/23/2014 1:40 PM CDT) [facility] Method Time Signature Anti-SSB (La) <0.3 0 - 6.9 [facility] Result U/mL LAB[facility]ATORIES Anti-SSB (NOTE) [facility] Interpreta. Anti-SSB (La) ?Interpretation LABORATORIES VALUE ?of Test Results 0-6.9 ? Negative 7.0-10.0 ?Equivocal >10.0 ? Positive Specimen Anatomical Collection Method Collection Time Receive d Time (Source) Location / / Volume Laterality 02/23/2014 1:40 PM 4 1:53 CDT PM CDT Narrative [facility] - 02/26/2014 11:03 AM CDT Performed at [facility], [address] [place] [address] ??[phone] Orlando Mckinley MD LAB_1 Performing Organization Address City/[facility]/ZIP Code Phon e Number [facility] [phone] AUTOABY TO JO1 AG (02/23/2014 1:40 PM CDT) Component Value Ref Test Analysis Performed At [facility] Range Method Time Signature DAKOTA-1 Antibody <1.0 NEG [facility] Reference range: <1.0 NEG LABO RATORIES Unit: AI DAKOTA-1 Antibody (NOTE) [facility] Test performed at [facility] [address] ??[phone] Director: MELVA SOTO MD Specimen Anatomical Collection Method Collection Time Receive d Time (Source) Location / / Volume Laterality 02/23/2014 1:40 PM 4 1:53 CDT PM CDT Orlando Mckinley MD LAB_1 Performing Organization Address [facility] Phon e Number [facility] [phone] AUTOABY TO SCL 70 AG (02/23/2014 1:40 PM CDT) [employer] [place] Method Time Signature SCL-70 Ab <1.0 NEG [facility] Reference range: <1.0 NEG LAB[facility]ATORIES Unit: AI SCL-70 Ab (NOTE) [facility] Test performed at [facility] [address] ??[phone] Director: MELVA SOTO MD Specimen Anatomical Collection Method Collection Time Receive d Time (Source) Location / / Volume Laterality 02/23/2014 1:40 PM 4 1:53 CDT PM CDT Orlando Mckinley MD LAB_1 Performing Organization Address [facility] Phon e Number [facility] [phone] SM AND SM/ROLL FORMING MACHINE OPERATOR ANTIBODIES (02/23/2014 1:40 PM CDT) Component Value Ref Test Analysis Performed At [employer] orderbolt Method Time Signature Sm Antibody <1.0 NEG [facility] Reference range: <1.0 NEG [facility]IES Unit: AI Sm/ROLL FORMING MACHINE OPERATOR <1.0 NEG [facility] Antibody Reference range: <1.0 NEG LABO [facility]ATORIES Unit: AI Sm/ROLL FORMING MACHINE OPERATOR (NOTE) [facility] Antibody [facility] Test performed at [facility] [address] ??[phone] Director: MELVA SOTO MD Specimen Anatomical Collection Method Collection Time Receive d Time (Source) Location / / Volume Laterality 02/23/2014 1:40 PM 4 1:53 CDT PM CDT Orlando Mckinley MD LAB_1 Performing Organization Address [facility] Phon e Number [facility] [phone] (ABNORMAL) C-REACTIVE PROTEIN(aka CRP) [0236] (02/23/2014 1:40 [...] 02/23/2014 4:13 PM C DT Performed at [facility], [address] [place] [address] ??[phone] Orlando Mckinley MD LAB_1 Performing Organization Address [facility] Phon e Number [facility] [phone] CCP AB [4287] (02/23/2014 1:40 PM CDT) [...] - 02/26/2014 11:03 AM CDT Performed at [facility], [address] [place] [address] ??[phone] Orlando Mckinley MD LAB_1 Performing Organization Address [facility] Phon e Number [facility] [phone] CREATININE / GFR [3711] (02/23/2014 1:40 PM [...] 02/23/2014 4:13 PM C DT Performed at [facility], [address] [place] [address] ??[phone] Orlando Mckinley MD LAB_1 Performing Organization Address [facility]/ZIP Code Phon e Number [facility] [phone] CALCIUM [0109] (02/23/2014 1:40 PM CDT) athologist Signature Calcium 10.1 8.4 - 10.2 [facility] mg/dl Specimen Anatomical Collection Method Collection Time Receive d Time (Source) Location / / Volume Laterality 02/23/2014 1:40 PM 4 1:53 CDT PM CDT Narrative [facility] - 02/23/2014 4:13 PM C DT Performed at [facility], [address] [place] [address] ??[phone] Orlando Mckinley MD LAB_1 Performing Organization Address [facility]/ZIP [facility] Phon e Number [facility] [phone] ALT (SGPT) [0129] (02/23/2014 1:40 PM CDT) athologist Signature ALT (SGPT) 20 0 - 69 U/L [facility] Specimen Anatomical Collection Method Collection Time Receive d Time (Source) Location / / Volume Laterality 02/23/2014 1:40 PM 4 1:53 CDT PM CDT Narrative [facility] - 02/23/2014 4:13 PM C DT Performed at [facility], [address] [place] [address] ??[phone] Orlando Mckinley MD LAB_1 Performing Organization Address City/[facility]/ZIP Code Phon e Number [facility] [phone] AST [0128] (02/23/2014 1:40 PM CDT) P athologist Signature AST (SGOT) 27 0 - 66 U/L [facility] Specimen Anatomical Collection Method Collection Time Receive d Time (Source) Location / / Volume Laterality 02/23/2014 1:40 PM 4 1:53 CDT PM CDT Narrative [facility] - 02/23/2014 4:13 PM C DT Performed at [facility], [address] [place] [address] ??[phone] Orlando Mckinley MD LAB_1 Performing Organization Address City/[facility] Code Phon e Number [facility] [phone] HEPATITIS C AB(aka ANTI-HCV) [0982] (02/23/2014 1:40 PM CDT) [employer] [place] Method Time Signature Anti-HCV Negative (Non NEGNR [facility] Reactive) LABORATORIES Comment: Does Not Rule Out Infection wit h HCV Specimen Anatomical Collection Method Collection Time Receive d Time (Source) Location / / Volume Laterality 02/23/2014 1:40 PM 4 1:53 CDT PM CDT Narrative [facility] - 02/26/2014 12:15 PM CDT Performed at [facility], [address] [place] [address] ??[phone] Orlando Mckinley MD LAB_1 Performing Organization Address [facility] Code Phon e Number [facility] [phone] (ABNORMAL) UA MICRO IF [3307] (02/23/2014 1:40 PM CDT) [employer] [place] Method Time Signature Urine Color Yellow [facility] [...] 02/23/2014 1:59 PM C DT Performed at [facility], [address] [place] [address] ??[phone] Orlando Mckinley MD LAB_1 Performing Organization Address City/State/ZIP Code Phon e Number [facility] [phone] (ABNORMAL) HEMOGRAM/PLTS/DIFF [3656] (02/23/2014 1:40 PM CDT) [facility] Method Time Signature WBC 8.6 4.0 [...] [facility] Lymph 24 % [facility] [place] 6 % [facility] Eos 1 % [facility] Baso 0 % [facility] Neutrophil 5.9 1.8 - 7.7 [facility] Absolute k/ul LABORATORIES Lymph Absolute 2.1 1.0 - 4.8 [facility] k/ul LAB[facility] [place] Absolute 0.5 0.1 - 0.7 [facility] k/ul [...] 02/23/2014 3:50 PM C DT Performed at [facility], [address] [place] [address] ??[phone] Orlando Mckinley MD LAB_1 Performing Organization Address City/State/ZIP Code Phon e Number [facility] [phone] (ABNORMAL) ESR [0017] (02/23/2014 1:40 PM CDT) athologist Signature ESR 43 (H) 0 - 20 [facility] mm/hr Specimen Anatomical Collection Method Collection Time Receive d Time (Source) Location / / Volume Laterality 02/23/2014 1:40 PM 4 1:53 CDT PM CDT Narrative [facility] - 02/23/2014 4:49 PM C DT Performed at [facility], [address] [place] [address] ??[phone] Orlando Mckinley MD LAB_1 Performing Organization Address City/State/ZIP Code Phon e Number [facility] [phone] documented in this encounter Visit Diagnoses Diagnosis Pain in joint, multiple sites - Primary Positive MELISSA (antinuclear antibody) Other and unspecified nonspecific immuno logical findings Screening for thyroid disorder - Primary Pain in joint, multiple sites documented in this encounter
--- OUTSIDE RECORDS SUMMARY | 2022-07-10 15:07 | XMS_ITS | Encounter Summary ---
:1990 Author Organization [employer] Address [address] [place] [address] Care Team Providers Name Role Phone Unavailable Primary Care Provider Unavailable Reason for Visit Reason Comments ROUTINE HEALTH MAINTENANCE Encounter Details Date Type Department Care Team Description 12/16/2011 Office Visit [facility] Marysol Vitale general medical examination at a health care facility (Primary Dx); Obstetrics and L, CISCO, FOOD PROCESSING CHEMIST Screening exa mination for venereal disease; Gynecology Contraceptive surveillance [address] [place], [place] [address] Social History Tobacco Use Types Packs/Day Years [...] this encounter Progress Notes Marysol Vitale APRN, FOOD PROCESSING CHEMIST - 12/16/2011 1:52 PM CDT SUBJECTIVE: Juliette [...] findings: external genitalia normal, Bartholin's glands, urethra, Benedict's glands negative, vaginal mucosa normal, cervix clear, normal sized uterus, adnexae negative. Rectal Exam:rectal not indicated by age criteria and lack of symptoms ASSESSMENT: Satisfactory annual stone banker exam Elevated lipids 2011-has appt for mgt [...] 08/10/2022 Appointment Gastroenterology Ashly Fortune APRN, CNP [address] [place] [address] (Wo rk) documented as of [...] Negative [facility] Comment: Test Performed by Bulk Clerk Mediated Amplification GC (N. gonorrhoeae) Negative [facility] Comment: Test Performed by Bulk Clerk Mediated Amplification Source C[facility] Specimen Anatomical Collection Method Collection Time Receive d Time (Source) Location / / Volume Laterality 12/16/2011 3:33 PM 2 3:34 CDT PM CDT Marysol Vitale APRN, CNP LAB_1 Performing Organization Address City/State/ZIP Code Phon e Number [facility] [phone] [facility] [address] [place] [phone] documented in this encounter Visit Diagnoses Diagnosis Routine general medical examination at [facility] care facility - Primary Routine general medical examination at a health care facility Screening examination for venereal disea se Contraceptive surveillance Contraceptive surveillance, unspecified documented in this encounter
--- OUTSIDE RECORDS SUMMARY | 2022-07-10 15:07 | XMS_ITS | Encounter Summary ---
:1990 Author Organization [facility] Address [address] [place] [address] Care Team Providers Name Role Phone Unavailable Primary Care Provider Unavailable Reason for Referral Consult/Transfer Care - Closed Specialty Diagnoses / Procedures Referred By Contact Refer red To Contact Elaine [place] [address] [place], [place] [address] Referral ID Status Reason Start Date Expiration Date Visits Requ ested Visits Authorized [id number] Closed 12/23/2011 1 1 Scheduling Instructions Your provider has recommended an appoint ment with [facility]. You may call [phone] to schedule your a ppointment. If you prefer, a receptionist scheduler will contact you within the next 3 business d ays to assist you in setting up this appointment. Reason for Visit Reason Onset Date Comments LAB RESULTS 12/22/2011 Encounter Details Date Type Department Care Team Description 12/22/2011 Telephone [facility] Elaine Latham MD LAB RESULTS [address] [address] [place] [address] [place] [address] [phone] (Wo rk) Social History Tobacco Use Types [...] pt. She would like a referral for Automobile Inspector. She agrees to start Iron and recheck [...] Team Description 08/10/2022 Appointment Gastroenterology Ashly Fortune, WEATHERIZATION SPECIALIST, LOKIE ENGINEER [address] [place] [address] (Wo rk) Scheduled Referrals Name Type Priority Associated Diagnoses Order S chedule RHEUMATOLOGY Referral Routine Ordered: 2011 CONSULT-ADULTS documented as of this encounter Visit Diagnoses Diagnosis Arthralgia - Primary Pain in joint, site unspecified documented in this encounter
--- OUTSIDE RECORDS SUMMARY | 2022-07-10 15:07 | XMS_ITS | Encounter Summary ---
:1990 Author Organization [employer] Address [address] [place] [address] Care Team Providers Name Role Phone Unavailable Primary Care Provider Unavailable Encounter Details Date Type Department Care Team Description 03/19/2010 Emergency Room External to [facility], DYSURIA S UPRAPUBIC Provider DISCOMFORT Social [...] Team Description 08/10/2022 Appointment Gastroenterology Ashly Fortune, ACCOUNTS PAYABLE SPECIALIST, OPTICAL GOODS DRILL OPERATOR [address] [place], [place] [phone] (Wo rk) documented as of this encounter Visit Diagnoses Not on filedocumented in this encounter
--- OUTSIDE RECORDS SUMMARY | 2022-07-10 15:07 | XMS_ITS | Encounter Summary ---
:1990 Author Organization [employer] Address [address] [place] [address] Care Team Providers Name Role Phone Unavailable Primary Care Provider Unavailable Reason for Visit Reason Comments STOMACH PROBLEM noticed she get sick, bloate d after eating large amt of dairy Encounter Details Date Type Department Care Team Description 10/08/2011 Office Visit Paul Lopez MD Dairy product intolerance (Primary Dx); Practice [address] [address] Bloating; [address] [address] [facility] [address] Hypercholesterolemia; SLICK Francois 5543 3 SLICK FRANCOIS Vaccin for DTP [phone] (Wo rk) Social History Tobacco Use Types Packs/Day Years Used Date Smoking Tobacco: Never Smokeless Tobacco: Never Alcohol Use Standard Drinks/Week Comments No 0 (1 standard drink = 0.6 oz pure alcoho l) Sex Assigned at Date Recorded Not on file documented as of this encounter Last Filed Vital Signs Vital Sign Reading Time Taken Comments Blood Pressure 118/70 10/08/2011 10:08 AM ELECTRICAL ENGINEER MEP Pulse 80 10/08/2011 10:08 AM ELECTRICAL ENGINEER MEP Temperature - - Respiratory Rate - - Oxygen Saturation - - Inhaled Oxygen Concentration - - Weight 60.8 kg (134 lb) 10/08/2011 10:08 AM ELECTRICAL ENGINEER MEP Height - - Body Mass Index 24.71 03/06/2010 4:05 PM CDT documented in this encounter Patient Instructions Patient InstructionsPaul Taveras MD - 10/10/2011 3:54 PM CST Should you have any questions or concerns, please call my office at [phone], or have a follow-up visit to discuss further. Thank you for letting me serve you. Thank you for visiting [facility]. To contact the clinic directly, please call [phone]. To schedule the appointment(s), please call [phone] or online at [email or web address]. If you need urgent medical help after clinic hours or on weekends, please call: CareLine [phone], or call 911 if any life threatening condition. Paul Taveras MD TRICAL ENGINEER MEP documented in this encounter Progress Notes Paul [...] intolerance mainly based on the clinical presentation. [facility] test for this intolerance concern. I [facility] called [facility] labdirector Dr. Carrillo, he confirmed that our [...] REST PLEASE SEE DICTATED NOTE FOR DETAIL) TRICAL ENGINEER MEP documented in this encounter Plan of Treatment Upcoming Encounters Date Type Specialty Care Team Description 08/10/2022 Appointment Gastroenterology Ashly Fortune, OFFICE MANAGER RECEPTIONIST, STEEL TIER [address] [place], [place] [address] (Wo rk) documented as of this encounter Results BASIC METABOLIC PANEL,FASTING (10/08/2011 11:07 AM ELECTRICAL ENGINEER MEP) [facility] Signature BUN 16 7 - 20 [...] / Volume Laterality 10/08/2011 11:07 10/08/2011 AM ELECTRICAL ENGINEER MEP 11:08 AM ELECTRICAL ENGINEER MEP Paul Taveras MD LAB_1 Performing Organization Address [facility] Phon e Number [facility] [phone] [facility] [address] [place] [phone] AST (10/08/2011 11:07 AM ELECTRICAL ENGINEER MEP) athologist Signature AST (SGOT) 22 0 - 55 U/L [facility] Specimen Anatomical Collection Method Collection Time Receive d Time (Source) Location / / Volume Laterality 10/08/2011 11:07 10/08/2011 AM ELECTRICAL ENGINEER MEP 11:08 AM ELECTRICAL ENGINEER MEP Paul Taveras MD LAB_1 Performing Organization Address [facility]/ZIP [facility] Phon e Number [facility] [phone] [address] ALT (SGPT) (10/08/2011 11:07 AM ELECTRICAL ENGINEER MEP) athologist Signature ALT (SGPT) 15 0 - 69 U/L [facility] Specimen Anatomical Collection Method Collection Time Receive d Time (Source) Location / / Volume Laterality 10/08/2011 11:07 10/08/2011 AM ELECTRICAL ENGINEER MEP 11:08 AM ELECTRICAL ENGINEER MEP Paul Taveras MD LAB_1 Performing Organization Address [facility] Phon e Number [facility] [phone] [address] (ABNORMAL) LIPID PANEL AND DIRECT LDL(IF NEEDED) (10/08/2011 11:07 AM ELECTRICAL ENGINEER MEP) [facility] Method Time Signature Cholesterol 371 (H) 0 - 199 [facility] mg/dl Triglyceride 168 (H) 0 - 149 [facility] mg/dl HDL 68 >40 mg/dl [facility] LDL, Calc. 269 (H) 0 - 129 [facility] mg/dl Non HDL Chol, 303 mg/dl [facility] Calc Comment: Non HDLC goal is 30 mg/dl above the patient's desired LDLC goal. Hours Fasting 12 hours [facility] Specimen Anatomical Collection Method Collection Time Receive d Time (Source) Location / / Volume Laterality 10/08/2011 11:07 10/08/2011 AM ELECTRICAL ENGINEER MEP 11:08 AM ELECTRICAL ENGINEER MEP Paul Taveras MD LAB_1 Performing Organization Address [facility] Phon e Number [facility] [address] [place] [phone] (ABNORMAL) VITAMIN D 25-HYDROXY, TOTAL (V77.99) (10/08/2011 11:07 AM ELECTRICAL ENGINEER MEP) [facility] Method Time Signature Vitamin 21.3 (L) 30 - 80 [facility] D,25-OH, Tot ng/mL Comment: Deficiency: ??< 20 ng/mL Insufficiency: ??20-29 ng/mL Optimum Level: ??30-80 ng/mL Possible Toxicity: > 80 ng/mL Performed at [facility] Specimen Anatomical Collection Method Collection Time Receive d Time (Source) Location / / Volume Laterality 10/08/2011 11:07 10/08/2011 AM ELECTRICAL ENGINEER MEP 11:09 AM ELECTRICAL ENGINEER MEP Paul Taveras MD LAB_1 Performing Organization Address [facility] Phon e Number [facility] [address] (ABNORMAL) HEMOGRAM/PLTS (10/08/2011 11:07 AM ELECTRICAL ENGINEER MEP) athologist Signature WBC 5.7 4.0 - 11.0 [facility] k/ul RBC 4.75 4.0 - 5.2 [facility] M/ul Hemoglobin 13.1 12.0 - [facility] 16.0 g/dl HCT 40.0 36.0 - [facility] 46.0 % MCV 84.0 80 - 100 [facility] fl MCH 27.6 26 - 34 pg [facility] MCHC 32.8 32 - 36 [facility] g/dl RDW 11.2 (L) 11.5 - [facility] 14.5 % Platelets 326 150 - 450 [facility] k/ul Specimen Anatomical Collection Method Collection Time Receive d Time (Source) Location / / Volume Laterality 10/08/2011 11:07 10/08/2011 AM ELECTRICAL ENGINEER MEP 11:08 AM ELECTRICAL ENGINEER MEP Paul Taveras MD LAB_1 Performing Organization Address City/State/ZIP Code Phon e Number [facility] [phone] [address] documented in this encounter Visit Diagnoses Diagnosis Dairy product intolerance - Primary Other specified intestinal malabsorption Bloating Flatulence, eructation, and gas pain Hypercholesterolemia Pure hypercholesterolemia Need for prophylactic vaccination with c ombined mfvfnrevbq-cpiamrg-lhjdneqmt (DTP) vaccine documented in this encounter
--- OUTSIDE RECORDS SUMMARY | 2022-07-10 15:08 | XMS_ITS | Encounter Summary ---
:1990 Author Organization [employer] Address [address] [place] [address] Care Team Providers Name Role Phone Justina Santiago MD Primary Care Provider Unavailable Encounter Details Date Type Department Care Team Description 04/22/2009 Immunization [facility] Nursing [address] [place] [address] Social History Tobacco Use Types Packs/Day Years Used Date Smoking Tobacco: Never Alcohol Use Standard Drinks/Week Comments Not Asked 0 (1 standard drink = 0.6 oz pure alcoho l) Sex Assigned at Date Recorded Not on file documented as of this encounter Plan of Treatment Upcoming Encounters Date Type Specialty Care Team Description 08/10/2022 Appointment Gastroenterology Ashly Fortune, FUR TAILOR, BUNDLE PACKER [address] [facility] [address] [place], [place] [address] (Wo rk) documented as of this encounter Visit Diagnoses Not on filedocumented in this encounter Care Teams Roller Mechanic Relationship Specialty Start Date End Date Justina Santiago MD PCP - General 04/25/07 02/03/10 documented as of this encounter
--- OUTSIDE RECORDS SUMMARY | 2022-07-10 15:08 | XMS_ITS | Encounter Summary ---
:1990 Author Organization [place] Address [address] [place] [address] Care Team Providers Name Role Phone No Ref-Primary, Physician Primary Care Provider [phone] Reason for Referral Diagnostic Imaging CT Scan (Routine) - Closed Specialty Diagnoses / Procedures Referred By Contact Refer red To Contact Radiology. Diagnoses Fracture of left olecranon process Sandy Vanegas MD Ct Scan Procedures CT Elbow Left w/o Contrast [facility] [address] [facility] [address] [place] [phone] Fax: Referral ID Status Reason Start Date Expiration Date Visits Requ ested Visits Authorized [id number] Closed 07/20/2019 07/19/2020 1 1 TROMECHANICAL TECHNOLOGIST Reason for Visit Diagnostic Imaging CT Scan (Routine) - Closed Specialty Diagnoses / Procedures Referred By Contact Refer red To Contact Radiology. Diagnoses Fracture of left olecranon process Sandy Vanegas MD Ct Scan Procedures CT Elbow Left w/o Contrast [facility] [address] [facility] [address] [place] [phone] Fax: Referral ID Status Reason Start Date Expiration Date Visits Requ ested Visits Authorized [id number] Closed 07/20/2019 07/19/2020 1 1 Encounter Details Date Type Department Care Team Description 07/21/2019 Hospital Encounter [facility] Sandy Vanegas of left [facility] MD Lilia olecranon process [address] [place], [place] ORTH[facility] [address] [phone] [facility] [address] [place] [address] Social History Tobacco Use Types Packs/Day Years [...] Fracture of left Results for this CONTRAST ELECTROMECHANICAL TECHNOLOGIST olecranon process procedure are in the results section. documented in this encounter Results CT Elbow Left w/o Contrast (07/21/2019 8:12 AM ELECTROMECHANICAL TECHNOLOGIST) Anatomical Region Laterality Modality Left Elbow, SUBRAD CT MSK, UMP CT MSK, RAD CT Computed Tomography Specimen (Source) Anatomical Location Collection Method / Collectio n Time Received Time / Laterality Volume Impressions 07/21/2019 12:01 PM ELECTROMECHANICAL TECHNOLOGIST IMPRESSION: Redemonstrated are the transverse fracture at the base of the olecranon process which shows no sig nificant displacement, oblique fracture lateral epicondyle, mildly disp laced coronoid fracture, minimally displaced fracture lateral mar gin radial head. No significant change. 3-D reconstructions are provided. ALEXANDRU OATES MD Narrative 07/21/2019 12:[address] ELBOW LEFT WITHOUT CONTRAST 07/21/2019 8:12 [...] ulna documented in this encounter Care Teams Industrial/Organizational Psychologist Relationship Specialty Start Date End Date No Ref-Primary, Physician PCP - General 07/21/19 documented as of this encounter
--- OUTSIDE RECORDS SUMMARY | 2022-07-10 15:08 | XMS_ITS | Encounter Summary ---
:1990 Author Organization [employer] Address [address] [place] [address] Care Team Providers Name Role Phone Unassigned, [...] Team Description 08/10/2022 Appointment Gastroenterology Ashly Fortune, CULTURAL CENTRE MANAGER, TAX PROCESSOR [address] [facility] [address] [place] [address] (Wo rk) documented as of this encounter Visit Diagnoses Not on filedocumented in this encounter Care Teams Bounty Hunter Relationship Specialty Start Date End Date Unassigned, Provider PCP - General 05/05/00 04/24/07 [address] [place] [address] documented as of this encounter
--- OUTSIDE RECORDS SUMMARY | 2022-07-10 15:08 | XMS_ITS | Encounter Summary ---
:1990 Author Organization [employer] Address [address] [place] [address] Care Team Providers Name Role Phone Jack, Justina Kowalski MD Primary Care Provider Unavailable Encounter Details Date Type Department Care Team Description 07/13/2007 Orders Only [place] Labor[facility] ry Routine or Child [address] [facility] [place], [place] [address] Social History Tobacco Use Types Packs/Day Years Used Date Smoking Tobacco: Never Alcohol Use Standard Drinks/Week Comments Not Asked 0 (1 standard drink = 0.6 oz pure alcoho l) Sex Assigned at Date Recorded Not on file documented as of this encounter Plan of Treatment Upcoming Encounters Date Type Specialty Care Team Description 08/10/2022 Appointment Gastroenterology Ashly Fortune, COMMERCIAL LOAN COLLECTION OFFICER, OPERATING ROOM NURSE [address] [facility] [address] [place], [place] [address] (Wo rk) documented as of this encounter Procedures Procedure Name Priority Date/Time Associated Diagnosis Comme nts COMPLETE BLOOD Routine 07/13/2007 7:42 AM Routine or Re sults for this COUNT-NO DIFF MOLDER Child Health Check procedur e are in the results section. LIPID PANEL, FAST > Routine 07/13/2007 7:42 AM Routine or Results for this 12 HOUR MOLDER Child Health Check procedure are in the results section. documented in this encounter Results (ABNORMAL) HEMOGRAM/PLTS (07/13/2007 7:42 AM MOLDER) athologist Signature WBC 5.5 4.0 - 11.0 [facility] k/ul RBC 4.30 4.1 - 5.1 [facility] M/ul Hemoglobin 11.4 (L) 12.0 - [facility] 16.0 g/dl HCT 35.6 (L) 36.0 - [facility] 46.0 % MCV 82.7 78 - 98 fl [facility] MCH 26.5 25 - 35 pg [facility] MCHC 32.1 32 - 36 % [facility] RDW 14.3 11.5 - [facility] 14.5 % Platelets 310 150 - 450 [facility] k/ul Specimen Anatomical Collection Method Collection Time Receive d Time (Source) Location / / Volume Laterality 07/13/2007 7:42 AM 7 7:43 MOLDER AM MOLDER Justina Santiago MD LAB_1 Performing Organization Address [facility] Phon e Number [facility] [phone] [address] CHOLESTEROL LIPID PANEL FAST >12HR (07/13/2007 7:42 AM MOLDER) athologist Signature Cholesterol 198 <200 mg/dl [facility] Triglyceride 93 <200 mg/dl [facility] HDL 55 >35 mg/dl [facility] LDL, Calc. 124 mg/dl [facility] Hours Fasting 12 hours [facility] Specimen Anatomical Collection Method Collection Time Receive d Time (Source) Location / / Volume Laterality 07/13/2007 7:42 AM 7 7:43 MOLDER AM MOLDER Justina Santiago MD LAB_1 Performing Organization Address [facility] Phon e Number [facility] [phone] [address] documented in this encounter Visit Diagnoses Diagnosis Routine or child health check documented in this encounter Care Teams Police Captain Relationship Specialty Start Date End Date Justina Santiago MD PCP - General 04/25/07 02/03/10 documented as of this encounter
--- OUTSIDE RECORDS SUMMARY | 2022-07-10 15:08 | XMS_ITS | Encounter Summary ---
:1990 Author Organization [place] Address [address] [place] [address] Care Team Providers Name Role Phone No Ref-Primary, Physician Primary Care Provider [phone] Encounter Details Date Type Department Care Team Description 07/21/2019 Travel Social History Tobacco Use Types Packs/Day Years Used Date Smoking Tobacco: Never Sex Assigned at Date Recorded Not on file documented as of this encounter Plan of Treatment Not on filedocumented as of this encounter Visit Diagnoses Not on filedocumented in this encounter Care Teams Pediatric Allergist Relationship Specialty Start Date End Date No Ref-Primary, Physician PCP - General 07/21/19 documented as of this encounter
--- OUTSIDE RECORDS SUMMARY | 2022-07-10 15:08 | XMS_ITS | Encounter Summary ---
:1990 Author Organization [facility] Address [address] [place] [address] Care Team Providers Name Role Phone Jack, Justina Kowalski MD Primary Care Provider Unavailable Reason for Visit Reason Onset Date Comments COUGH 05/19/2009 Encounter Details Date Type Department Care Team Description 05/19/2009 Telephone Careline Unknown, Physician COUGH [address] [place], [place] [address] [place], [place] [address] (Wo rk) Social History Tobacco Use Types [...] care system is the patient affiliated with? [facility] Clinics Situation:pt has fever ,body aches and vomited yesterday. A nurse will call you back within the next hour. If you have not heard from a nurse, please feel free to call us back at [phone] and state that you are waiting for a callback. documented in this encounter Plan of Treatment Upcoming Encounters Date Type Specialty Care Team Description 08/10/2022 Appointment Gastroenterology Ashly Fortune, LABOR TRAINING MANAGER, REFRACTORY TECHNICIAN [address] [place] [address] (Wo rk) documented as of this encounter Visit Diagnoses Not on filedocumented in this encounter Care Teams Bone Char Operator Relationship Specialty Start Date End Date Justina Santiago MD PCP - General 04/25/07 02/03/10 documented as of this encounter
--- OUTSIDE RECORDS SUMMARY | 2022-07-10 15:08 | XMS_ITS | Encounter Summary ---
:1990 Author Organization [employer] Address [address] [place] [address] Care Team Providers Name Role Phone Unassigned, Provider Primary Care Provider Unavailable Reason for Visit Reason Onset Date Comments INJURY, NOS 07/14/2006 head Encounter Details Date Type Department Care Team Description 07/14/2006 Telephone [facility] Jack, Justina Kowalski MD IN [facility], NOS (head) Practice [address] [place], [place] [address] Social History Tobacco Use Types Packs/Day Years [...] ice for short time. Patient transferred to medical receptionist assistant to set up appt. LLED NURSE Jessika Astudillo - 07/15/2006 2:31 PM CST Left message to call back. LLED NURSE Jessika Astudillo - 07/14/2006 5:01 PM CST Left message to call back. LLED NURSE Justina Santiago - 07/14/2006 4:54 PM CST She does not need to come in if she is free of symptoms. LLED NURSE Eliza Malik - 07/14/2006 9:07 AM CST Recieved a mild concussion on Sat. In hockey. Does she need to come in. Eliza Malik LLED NURSE documented in this encounter Plan of Treatment Upcoming Encounters Date Type Specialty Care Team Description 08/10/2022 Appointment Gastroenterology Ashly Fortune, SHIFT LEADER, COMPOSITION SIDING WORKER [address] [facility] [address] [place] [address] (Wo rk) documented as of this encounter Visit Diagnoses Not on filedocumented in this encounter Care Teams Dishwasher Preparer Relationship Specialty Start Date End Date Unassigned, Provider PCP - General 05/05/00 04/24/[address] [place] [address] documented as of this encounter
--- OUTSIDE RECORDS SUMMARY | 2022-07-10 15:08 | XMS_ITS | Encounter Summary ---
:1990 Author Organization [employer] Address [address] [place] [address] Care Team Providers Name Role Phone Justina [...] GARTH OLIVAS PROVIDER - 07/21/2007 12:00 AM FOOD SAFETY TECHNICIAN documented in this encounter Plan of Treatment Upcoming Encounters Date Type Specialty Care Team Description 08/10/2022 Appointment Gastroenterology Ashly Fortune, COURT OF APPEALS JUDGE, PLASTIC TOP ASSEMBLER [address] [facility] [address] [place], [place] [address] (Wo rk) documented as of this encounter Visit Diagnoses Not on filedocumented in this encounter Care Teams Ap Operator Relationship Specialty Start Date End Date Justina Santiago MD PCP - General 04/25/07 02/03/10 documented as of this encounter
--- OUTSIDE RECORDS SUMMARY | 2022-07-10 15:08 | XMS_ITS | Encounter Summary ---
:1990 Author Organization [employer] Address [address] [place] [address] Care Team Providers Name Role Phone Unassigned, Provider Primary Care Provider Unavailable Encounter Details Date Type Department Care Team Description 05/10/2006 Correspondence BearJustina Sams, PHYSICAL EXAM/ [facility] [address] [place], [place] [address] Social History Tobacco Use Types [...] Team Description 08/10/2022 Appointment Gastroenterology Ashly Fortune, CHAINSTITCH PANTS OUTSEAMER, DIVISION ORDER TECHNICIAN [address] [facility] [address] [place] [address] (Wo rk) documented as of this encounter Visit Diagnoses Not on filedocumented in this encounter Care Teams Aircraft Dispatcher Relationship Specialty Start Date End Date Unassigned, Provider PCP - General 05/05/00 04/24/[address] [place] [address] documented as of this encounter
--- OUTSIDE RECORDS SUMMARY | 2022-07-10 15:08 | XMS_ITS | Encounter Summary ---
:1990 Author Organization [employer] Address [address] [place] [address] Care Team Providers Name Role Phone Unassigned, Provider Primary Care Provider Unavailable Reason for Visit Reason Comments WELL CHILD EXAM Encounter Details Date Type Department Care Team Description 03/12/2004 Office Visit Rogelio Lloyd Pediatri cs Justina Santiago, ROUTINE CHILD HEALTH EXAM (P rimary Dx); [address] Jani Gipson MD VACCINE [id number] ; Rogelio Lloyd [place] [address] VACCINE FOR TETANUS + DIPHTH ERIA [phone] Social History Tobacco Use Types Packs/Day Years [...] 03/12/2004 9:24 AM CD T Growth Chart: CDC (Girls, 2-20 Years) documented in this encounter Patient Instructions Patient Ewyxqyitdtfs55/11/2004 9:00 AM CDT It has been a [...] high cholesterol: mother's family, mother's father of NE age 42 Exercise: adequate} Recreation/Hobbies/TV: does not [...] Sleep: 8-9 hours of sleep/night School: Name: [employer]: 7 Success: honor roll Plans: cost manager REVIEW OF SYSTEMS: HEENT: Head: System reviewed. [...] family history of high cholesterol and early NE P> Per orders. will check cholesterol and [...] Team Description 08/10/2022 Appointment Gastroenterology Ashly Fortune, ACTUARIAL ASSISTANT, RETAIL BANKING MANAGER [address] [place], [place] [address] (Wo rk) documented as of this encounter [...] Organization Address City/State/ZIP Code Phon e Number [facility] [phone] [facility] [address] [address] (ABNORMAL) CHOLESTEROL, TOTAL AND HDL (03/12/2004 10:10 AM CDT) athologist Signature Cholesterol 222 (H) <200 mg/dl [facility] HDL 51 >35 mg/dl [facility] Specimen Anatomical Collection Method Collection Time Receive d Time (Source) Location / / Volume Laterality 03/12/2004 10:10 03/12/2004 AM CDT 10:11 AM CDT Justina Santiago MD LAB_1 Performing Organization Address [facility] Phon e Number [facility] [phone] [facility] [address] [address] documented in this encounter Visit Diagnoses Diagnosis Routine or child health check - P rimary Need for prophylactic vaccination with m spwjky-pxfps-evwysje (MMR) vaccine Need for Td vaccine Need for prophylactic vaccination with t etanus-diphtheria (Td) documented in this encounter Care Teams Vending Machine Attendant Relationship Specialty Start Date End Date Unassigned, Provider PCP - General 05/05/00 04/24/[address] [place] [address] documented as of this encounter
--- OUTSIDE RECORDS SUMMARY | 2022-07-10 15:08 | XMS_ITS | Encounter Summary ---
:1990 Author Organization [employer] Address [address] [place] [address] Care Team Providers Name Role Phone Unavailable Primary Care Provider Unavailable Reason for Visit Reason Comments Dysphagia SORE THROAT,NURSE Encounter Details Date Type Department Care Team Description 06/16/1998 Telephone Careline Kristal Saab Dysphagia; SORE 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 Suarez, mom told >> CALL RECEIVED. Contact: [phone] mom mac >> KRISTAL SAAB 06/16/1998 10:06 am STAT SX: no breathing [...] Team Description 08/10/2022 Appointment Gastroenterology Ashly Fortune, REMOTE SENSING SCIENTIST, ROOFER APPRENTICE [address] [facility] [[email or web address]] [address] [place], [place] [address] (Wo rk) documented as of this encounter Visit Diagnoses Not on filedocumented in this encounter
--- OUTSIDE RECORDS SUMMARY | 2022-07-10 15:08 | XMS_ITS | Encounter Summary ---
:1991 Author Organization [employer] Address [address] [place] [address] Care Team Providers Name Role Phone Lazarus Galeas MD Primary Care Provider + [phone] Reason for Visit Reason Comments Fall Arm Injury Encounter Details Date Type Department Care Team Description 07/19/2019 Emergency [facility] Rebel Brantley MD Closed fracture of left elbow, initial e ncounter; [facility] Emergency Dep t EMERGENCY PHYSICIANS Closed dislocation of left e lbow, initial encounter; [address] [place] Fall, initial encounter; [place], [place] [address] [facility] [address] Rangel d displaced fracture of head of left radius, initial encounter; [phone] [facility] 100 Displaced fracture of lateral condyle of left humerus, initial encounter for closed fracture [phone] [place], [place] [address] (Wo rk) Social History Tobacco Use Types Packs/Day Years Used Date Smoking Tobacco: Never Sex Assigned at Date Recorded Not on file documented as of this encounter Last Filed Vital Signs Vital Sign Reading Time Taken Comments Blood Pressure 162/92 07/19/2019 1:30 PM TANKROOM WORKER Pulse 97 07/19/2019 1:30 PM TANKROOM WORKER Temperature 36.4 ??C (97.5 ??F) 07/19/2019 8:22 AM TANKROOM WORKER Respiratory Rate 18 07/19/2019 12:30 PM TANKROOM WORKER Oxygen Saturation 99% 07/19/2019 1:30 PM TANKROOM WORKER Inhaled Oxygen Concentration - - Weight 87.2 kg (192 lb 3.2 oz) 07/19/2019 10:31 AM TANKROOM WORKER Height - - Body Mass Index 34.59 [...] local pharmacy or law enforcement facility. The [place] Pollution Control Agency has additional information on medication disposal: http s://www.structural steel trades worker.[facility].nv.us/living-green/zzvesack-jykhgaax-qtcpjnmozmb. Many prescription pain medications contain Tylenol?? (acetaminophen), including Vicodin??, Tylenol #3??, [place]??, Lortab??, and Percocet??. You should not take [...] if there is anything that worries you. ROOM WORKER AttachmentsThe following attachments cannot be sent through Care Everywhere. Elbow Dislocation ([place])Elbow Fracture ([place])documented in this encounter Medications at Time of [...] Expected time: Means of arrival: Comments: RM19 ROOM WORKER Trell Lowe RN - 07/19/2019 8:21 AM CST Pt arrives with L arm pain after fall this morning. Pt slipped on ice, fell forward down 3 steps andlanded on L arm. Pain in forearm and elbow, no obvious deformity. Pt placed in sling in triage for comfort. CMS intact. ROOM WORKER Rebel Brantley MD - 07/19/2019 8:07 AM [...] margin minimally displaced fracture, as per radiology. [facility] -Fracture Date/Time: 07/19/2019 10:14 AM Performed [...] the procedure a time out was called [place] Protocol: the Joint Commission [place] Protocol was followed Preparation: Patient was prepped [...] 0944: I consulted with HECTOR Bone from [facility] orthopedics, regarding the patient's history and [...] as well. I discussed the case with [facility] orthopedic Jeana Emery PA-C on behalfof Dr. [...] and the provider's statements to me. 07/19/2019 [facility] EMERGENCY DEPARTMENT Rebel Brantley MD 07/19/197 ROOM WORKER documented in this encounter Plan of Treatment Not on filedocumented as of this encounter Procedures Procedure Name Priority Date/Time Associated Comments Diagnosis CT ELBOW LEFT W/O STAT 07/19/2019 1:32 PM Resu lts for this CONTRAST TANKROOM WORKER procedure are i n the results section. XR SURGERY JANIS STAT 07/19/2019 11:47 AM Resul ts for this FLUORO LESS THAN 5 TANKROOM WORKER procedure are in MIN W STILLS the results section. XR ELBOW LEFT 2 STAT 07/19/2019 9:34 AM Result s for this VIEWS TANKROOM WORKER procedure are i n the results section. ED ORTHOPEDIC INJURY Routine 07/19/2019 8:07 AM R esults for this TREATMENT - FRACTURE TANKROOM WORKER procedu re are in the results section. documented in this encounter Results CT Elbow Left w/o Contrast (07/19/2019 1:32 PM TANKROOM WORKER) Anatomical Region Laterality Modality Left Elbow, SUBRAD CT MSK, UMP CT MSK, RAD CT Computed Tomography Specimen (Source) Anatomical Location Collection Method / Collectio n Time Received Time / Laterality Volume Impressions 07/19/2019 2:54 PM TANKROOM WORKER IMPRESSION: Reduced left elbow dislocation with the following periarticular fractures: 1. Olecranon base nondisplaced fracture. 2. Coronoid process fracture. 3. Lateral epicondylar base fracture, mi nimally displaced, likely including the lateral collateral ligamen t attachment. Radiocapitellar alignment is grossly normal. 4. Radial head lateral margin minimally displaced fracture. BLAYNE SANCHEZ MD Narrative 07/19/2019 2:[address] ELBOW LEFT WITHOUT CONTRAST July 19, [...] Min Fluoro w Stills (07/19/2019 11:47 AM TANKROOM WORKER) Anatomical Region Laterality Modality Abdomen/Pelvis Radio Fluoroscopy Specimen (Source) Anatomical Location Collection Method / Collectio n Time Received Time / Laterality Volume Impressions 07/19/2019 12:43 PM TANKROOM WORKER IMPRESSION: Intraoperative fluoroscopic spot image of the elbow demonstrating multiple fractures. Refer to operative report for additional details. MEGHANN OTOOLE MD Narrative 07/19/2019 12:43 PM TANKROOM WORKER SURGERY C-ARM FLUORO LESS THAN 5 MIN [...] XR, 2 views, left (07/19/2019 9:34 AM TANKROOM WORKER) Anatomical Region Laterality Modality Elbow, Left Elbow Left Computed Radiography Specimen (Source) Anatomical Location Collection Method / Collectio n Time Received Time / Laterality Volume Impressions 07/19/2019 12:04 PM TANKROOM WORKER IMPRESSION: There is a transverse fracture of [...] ZION JUAN MD Narrative 07/19/2019 12:04 PM TANKROOM WORKER LEFT ELBOW TWO VIEWS ??07/19/2019 9:34 AM [...] IMAGING ORDER HOLLY -Fracture (07/19/2019 8:07 AM TANKROOM WORKER) Narrative Rebel Brantley MD - 07/19/2019 8:07 AM CS T Rebel Brantley MD ? 07/19/2019 ??9:36 PM [facility] -Fracture Date/Time: 07/19/2019 10:14 AM Performed [...] dure a time out was called ?? [place] Protocol: the Joint Commission [place] Protocol was followed ?? Preparation: Patient was [...] chloride BOLUS New Bag 07/19/2019 1:00 PM TANKROOM WORKER 1,000 mLs 1000 mL/hr Intravenous, 1,000 mL, ONCE, at 1,000 mL/hr, Administer over 1 Hours, On Wed07/19/19 at 1015, For 1 dose ibuprofen (ADVIL/MOTRIN) tablet 800 mg Given 07/19/2019 8:56 AM TANKROOM WORKER 800 mg 800 mg, Oral, ONCE, On [...] 2 MG/ML injection Given 07/19/2019 11:24 AM TANKROOM WORKER 4 mg Starting on Wed07/19/19 at 1119, For 1 dose, MS. NAKUL Aguilar : cabinet override Irritant. For ordered IV doses 0.1-4 mg, give IV Push undiluted over 2-5 minutes. oxyCODONE-acetaminophen (PERCOCET) 5-325 MG Given 07/02 1:40 PM TANKROOM WORKER 1 tablet per tablet 1 tablet 1 tablet, Oral, ONCE, On Wed07/19/19 at 1335, For 1 dose, Maximum acetaminophen dose from all sources= 75 mg/kg/day not to exceed 4 grams propofol (DIPRIVAN) 200 MG/20ML injectio n Given 07/19/2019 11:34 AM TANKROOM WORKER 90 mg Starting on Wed07/19/19 at 1051, For 1 dose, Kroc, MS. MOTA : cabinet override propofol (DIPRIVAN) injection 10 mg/mL v ial Given 07/19/2019 11:37 AM TANKROOM WORKER 30 mg 9 mg (rounded from 8.72 [...] Recently Administered Medications Times are shown in TANKROOM WORKER. Scheduled Medication Order 07/17/2019 07/18/2019 07/19/2019 0.9% [...] override documented in this encounter Care Teams Dairy Worker Relationship Specialty Start Date End Date Lazarus Galeas MD PCP - General 10/07/08 07/19/19 [address] [facility] [place] [address] documented as of this encounter
--- OUTSIDE RECORDS SUMMARY | 2022-07-10 15:08 | XMS_ITS | Encounter Summary ---
:1990 Author Organization [place] Address [address] [place] [address] Care Team Providers Name Role Phone Lazarus [...] filedocumented in this encounter Care Teams Manager Meat Relationship Specialty Start Date End Date Lazarus Galeas MD PCP - General 10/07/08 07/19/19 [facility] [address] documented as of this encounter
--- OUTSIDE RECORDS SUMMARY | 2022-07-10 15:08 | XMS_ITS | Encounter Summary ---
:1990 Author Organization [employer] Address [address] [place] [address] Care Team Providers Name Role Phone Unassigned, [...] (Primary Dx); Practice MD ACUTE PHARYNGITIS(SORE THROAT); [address] [place] [address] [place], [place] [phone] [id number] Social History Tobacco Use Types Packs/Day Years [...] 36.1 ??C (97 ??F) 10/31/2004 1:35 PM MUSEUM REGISTRAR Respiratory Rate - - Oxygen Saturation - - Inhaled Oxygen Concentration - - Weight 40.8 kg (90 lb) 10/31/2004 1:35 PM MUSEUM REGISTRAR Height - - Body Mass Index - - documented in this encounter Progress Notes 10/31/2004 1:20 PM MUSEUM REGISTRAR SUBJECTIVE: Juliette Gaming is a 14 yr [...] Team Description 08/10/2022 Appointment Gastroenterology Ashly Fortune, BICYCLE SUBASSEMBLER, PIN ATTACHER [address] [place], [place] [address] (Wo rk) documented as of this encounter Procedures Procedure Name Priority Date/Time Associated Diagnosis Comme nts STREP GRP A, RAPID Waiting 10/31/2004 1:38 PM Acute Res ults for this SCREEN MUSEUM REGISTRAR Pharyngitis(Sore procedure a re in Throat) the results section. documented in this encounter Results STREP GRP A, RAPID SCREEN (10/31/2004 1:38 PM MUSEUM REGISTRAR) [facility] Method Time Signature Patient Home None [facility] Phone # Patient Work None [employer] Phone # Grp A Rapid Negative NEG [facility] Screen Grp A Culture Negative [facility] Final Specimen Anatomical Collection Method Collection Time Receive d Time (Source) Location / / Volume Laterality 10/31/2004 1:38 PM 5 1:39 MUSEUM REGISTRAR PM MUSEUM REGISTRAR Lyle Orozco MD LAB_1 Performing Organization Address City/State/ZIP Code Phon e Number [facility] [phone] [facility] [address] [address] documented in this encounter Visit Diagnoses Diagnosis Acute upper respiratory infections of un specified site - Primary Acute pharyngitis Backache, unspecified documented in this encounter Care Teams Ecmo Specialist Relationship Specialty Start Date End Date Unassigned, Provider PCP - General 05/05/00 04/24/[address] [place] [address] documented as of this encounter
--- OUTSIDE RECORDS SUMMARY | 2022-07-10 15:08 | XMS_ITS | Encounter Summary ---
:1991 Author Organization [facility] Address [address] [place] [address] Care Team Providers Name Role Phone Unassigned, Provider Primary Care Provider Unavailable Reason for Visit Reason Onset Date Comments QUESTIONS, GENERAL 07/12/2006 Encounter Details Date Type Department Care Team Description 07/12/2006 Telephone [employer] Family Unknown, Phys ician QUESTIONS, grocery cashier [address] [address] [place], [place] [phone] (Wo rk) Social History Tobacco Use Types [...] Sat.07/10/06. Not seen by anyone except by monkey trainer of hockey team. No loss of [...] if new symptoms develop. Chrissie Perez RN K PULLER Pebbles [place] - 07/12/2006 3:50 PM CST Daughter was injured in a hockey game,Sat 07-10-06; she had grade 1 concussion. Has questions ?? K PULLER documented in this encounter Plan of Treatment Upcoming Encounters Date Type Specialty Care Team Description 08/10/2022 Appointment Gastroenterology Ashly Fortune, [employer], OIL FIELD RIG BUILDER [address] [facility] [address] [place], [place] [address] (Wo rk) documented as of this encounter Visit Diagnoses Not on filedocumented in this encounter Care Teams Wire Loop Machine Operator Relationship Specialty Start Date End Date Unassigned, Provider PCP - General 05/05/00 04/24/[address] [place] [address] documented as of this encounter
--- OUTSIDE RECORDS SUMMARY | 2022-07-10 15:08 | XMS_ITS | Encounter Summary ---
:1990 Author Organization [employer] Address [address] [place] [address] Care Team Providers Name Role Phone Justina Santiago MD Primary Care Provider Unavailable Reason for Visit Reason Onset Date Comments Medication Questions 05/22/2009 [facility] Encounter Details Date Type Department Care Team Description 05/22/2009 Telephone [place] [facility] Justina Santiago, Medication Questions [phone] Jani Gipson MD (BCP) [place], [place] [address] Social History Tobacco Use Types [...] Team Description 08/10/2022 Appointment Gastroenterology Ashly Fortune, MOTION DESIGNER, DESIGN CELL ENGINEER [address] [place] [address] (Wo rk) documented as of this encounter Visit Diagnoses Not on filedocumented in this encounter Care Teams Lining Finisher Relationship Specialty Start Date End Date Justina Santiago MD PCP - General 04/25/07 02/03/10 documented as of this encounter
--- OUTSIDE RECORDS SUMMARY | 2022-07-10 15:08 | XMS_ITS | Encounter Summary ---
:1991 Author Organization [facility] Address [address] [place] [address] Care Team Providers Name Role Phone Unassigned, Provider Primary Care Provider Unavailable Reason for Visit Reason Comments CONSULT allergy Encounter Details Date Type Department Care Team Description 12/23/2004 Office Visit [facility], CHRONIC RHINITIS; [address] Michael Gilmore MD COUGH [place], [place] [address] Social History Tobacco Use [...] 12/23/2004 2:19 PM CD T Growth Chart: CDC (Girls, 2-20 Years) documented in this encounter Progress Notes 12/23/2004 2:30 PM CDT AUTHOR: MANDO WILLIS ALLERGY EVALUATION (NEW PATIENT) SUBJECTIVE: This 14 y/o, w/f, who was born in and has lived in [place], was apparently self- referred to our allergy [...] >> SHIRLEY TURNER 12/23/2004 2:20 pm Juliette Pompapaolo is here today for Allergy Department visit. Phone #: [phone]. Spirometry/Peakflow done-NO. No current outpatient prescriptions on file. Shilrey Turner LPN, 2:19 PM, 12/23/2004 documented in this encounter Plan of Treatment Upcoming Encounters Date Type Specialty Care Team Description 08/10/2022 Appointment Gastroenterology Ashly Frotune, FAST FOOD COOK, BOOM MAN [address] [facility] [address] [place] [address] (Wo rk) documented as of this encounter Visit Diagnoses Diagnosis Chronic rhinitis Cough documented in this encounter Care Teams Sleeping Bag Filler Relationship Specialty Start Date End Date Unassigned, Provider PCP - General 05/05/00 04/24/07 [address] [place] [address] documented as of this encounter
--- OUTSIDE RECORDS SUMMARY | 2022-07-10 15:08 | XMS_ITS | Encounter Summary ---
:1991 Author Organization [employer] Address [address] [place] [address] Care Team Providers Name Role Phone Unavailable Primary Care Provider Unavailable Reason for Visit Reason Comments BLEEDING, BREAKTHROUGH Encounter Details Date Type Department Care Team Description 03/06/2010 Office Visit [facility] Chaya Armando M etrorrhagia (Primary Obstetrics and MD Dx) Gynecology [address] [address] [place], [place] [phone] Social History Tobacco Use Types Packs/Day Years [...] Chaya Armando - 03/06/2010 4:26 PM CDT RESIDENTIAL COUNSELOR Office Note Chief Complaint: Intermenstrual bleeding on OCP's. SUBJECTIVE: 19 yr old P0 was seen by her remote advisor in 05/2009. She was requesting contraception at [...] Team Description 08/10/2022 Appointment Gastroenterology Ashly Fortune, FULL STACK NET DEVELOPER, IGNITER ASSEMBLER [address] [place] [address] (Wo rk) documented as of this encounter Visit Diagnoses Diagnosis Metrorrhagia - Primary documented in this encounter
--- OUTSIDE RECORDS SUMMARY | 2022-07-10 15:08 | XMS_ITS | Encounter Summary ---
:1991 Author Organization [facility] [employer] Address [address] [place] [address] Care Team Providers Name Role Phone Unassigned, Provider Primary Care Provider Unavailable Encounter Details Date Type Department Care Team Description 07/16/2006 Correspondence None Unknown, Physici an CONSENT AND RELEASE [address] [place], [place] [address] (Wo rk) Social History Tobacco Use Types Packs/Day Years Used Date Smoking Tobacco: Never Alcohol Use Standard Drinks/Week Comments Not Asked 0 (1 standard drink = 0.6 oz pure alcoho l) Sex Assigned at Date Recorded Not on file documented as of this encounter Progress Notes Unknown, Physician - 07/16/2006 12:00 AM HARM REDUCTION WORKER documented in this encounter Plan of Treatment Upcoming Encounters Date Type Specialty Care Team Description 08/10/2022 Appointment Gastroenterology Ashly Fortune, OCCUPATIONAL THERAPIST HOME BASED, PLANT HEALTH CARE TECHNICIAN [address] [place], [place] [address] (Wo rk) documented as of this encounter Visit Diagnoses Not on filedocumented in this encounter Care Teams Method Consultant Relationship Specialty Start Date End Date Unassigned, Provider PCP - General 05/05/00 04/24/07 [address] [place] [address] documented as of this encounter
--- OUTSIDE RECORDS SUMMARY | 2022-07-10 15:08 | XMS_ITS | Encounter Summary ---
:1991 Author Organization [employer] Address [address] [place] [address] Care Team Providers Name Role Phone Unavailable Primary Care Provider Unavailable Reason for Visit Reason Comments DEPRESSION follow up Encounter Details Date Type Department Care Team Description 02/25/2010 Office Visit Elaine López, or Depressive Practice MD Disorder, Single [address] Episode, [place], [place] [address] [address] (Primary Dx) [phone] [place] [address] (Wo rk) Social History Tobacco Use Types [...] score today is 8. ASSESSMENT AND PLAN: [id number]-[id number] female to follow up with major depression, [...] Team Description 08/10/2022 Appointment Gastroenterology Ashly Fortune, CMV DRIVER, STERILE PROCESSING TECH [address] [place] [address] (Wo rk) documented as of this encounter Visit Diagnoses Diagnosis Major depressive disorder, single episod e, moderate ([facility]) - Primary Major depressive disorder, single episod e, moderate documented in this encounter
--- OUTSIDE RECORDS SUMMARY | 2022-07-10 15:08 | XMS_ITS | Encounter Summary ---
:1991 Author Organization [facility] Address [address] [place] [address] Care Team Providers Name Role Phone Unassigned, Provider Primary Care Provider Unavailable Encounter Details Date Type Department Care Team Description 03/12/2004 Correspondence None Unknown, Physici an IMMUNIZATIONS [address] [place] [address] (Wo rk) Social History Tobacco Use Types Packs/Day Years Used Date Smoking Tobacco: Never Assessed Sex Assigned at Date Recorded Not on file documented as of this encounter Progress Notes Unknown, Physician - 03/12/2004 12:00 AM CDT documented in this encounter Plan of Treatment Upcoming Encounters Date Type Specialty Care Team Description 08/10/2022 Appointment Gastroenterology Ashly Fortune, DEAF/HARD OF HEARING SPECIALIST, AIRPORT DRIVER [address] [facility] [address] [place], [place] [address] (Wo rk) documented as of this encounter Visit Diagnoses Not on filedocumented in this encounter Care Teams Pan Washer Hand Relationship Specialty Start Date End Date Unassigned, Provider PCP - General 05/05/00 04/24/07 [address] [place] [address] documented as of this encounter
--- OUTSIDE RECORDS SUMMARY | 2022-07-10 15:08 | XMS_ITS | Encounter Summary ---
:1990 Author Organization [employer] Address [address] [place] [address] Care Team Providers Name Role Phone Jack, Justina Kowalski MD Primary Care Provider Unavailable Reason for Visit Reason Comments SHOT,FLU Encounter Details Date Type Department Care Team Description 05/23/2008 Office Visit [facility] Need for Prophylactic [address] [place] [address] Inoculation Against [phone] Influenza (Prim jean Dx) Social History Tobacco [...] Team Description 08/10/2022 Appointment Gastroenterology Ashly Fortune, LOG WASHER, LEGAL MANAGER [address] [place] [address] (Wo rk) documented as of this encounter Visit Diagnoses Diagnosis Need for prophylactic vaccination and in oculation against influenza - Primary documented in this encounter Care Teams Project Structural Engineer Relationship Specialty Start Date End Date Justina Santiago MD PCP - General 04/25/07 02/03/10 documented as of this encounter
--- OUTSIDE RECORDS SUMMARY | 2022-07-10 15:08 | XMS_ITS | Encounter Summary ---
:1991 Author Organization [employer] Address [address] [place] [address] Care Team Providers Name Role Phone Justina [...] Team Description 08/10/2022 Appointment Gastroenterology Ashly Fortune, FINGERPRINTER, QUOTATION CHECKER [address] [place], [place] [address] (Wo rk) documented as of this encounter Visit Diagnoses Not on filedocumented in this encounter Care Teams Facility Manager Relationship Specialty Start Date End Date Justina Santiago MD PCP - General 04/25/07 02/03/10 documented as of this encounter
--- OUTSIDE RECORDS SUMMARY | 2022-07-10 15:08 | XMS_ITS | Encounter Summary ---
:1990 Author Organization [facility] Address [address] [place] [address] Care Team Providers Name Role Phone Jack, Justina Kowalski MD Primary Care Provider Unavailable Reason for Visit Reason Comments IMMUNIZATIONS HPV #2 Encounter Details Date Type Department Care Team Description 07/13/2007 Office Visit [facility] Need Vac cination-Viral Department Disease (Primary Dx) [address] [place], [place] [address] Social History Tobacco Use Types Packs/Day Years Used Date Smoking Tobacco: Never Alcohol Use Standard Drinks/Week Comments Not Asked 0 (1 standard drink = 0.6 oz pure alcoho l) Sex Assigned at Date Recorded Not on file documented as of this encounter Progress Notes Zo Swan - 07/13/2007 8:50 AM CST Juliette Gaming here for injection(s). ordered per [facility] SO. See orders. Contraindications and side effects discussed with mother and patient mother and patient verbalized understanding of risks, possible side effects, and benefits of the injection and gave permission to administer the stated immunization(s). No precautions or contraindications noted. Tolerated injection well. See immunization/injection report for administration documentation. Zo Swan LPN 07/13/2007 8:50 AM SUBSTATION OPERATOR documented in this encounter Plan of Treatment Upcoming Encounters Date Type Specialty Care Team Description 08/10/2022 Appointment Gastroenterology Ashly Fortune, SLITTER SCORER CUT OFF OPERATOR, CREDIT CORRESPONDENCE CLERK [address] [place] [address] (Wo rk) documented as of this encounter Visit Diagnoses Diagnosis Need for prophylactic vaccination and in oculation against other viral diseases(V04.89) - Primary Need for prophylactic vaccination and in oculation against other viral diseases documented in this encounter Care Teams Skid Adzer Relationship Specialty Start Date End Date Justina Santiago MD PCP - General 04/25/07 02/03/10 documented as of this encounter
--- OUTSIDE RECORDS SUMMARY | 2022-07-10 15:08 | XMS_ITS | Encounter Summary ---
:1990 Author Organization [facility] Address [address] [place] [address] Care Team Providers Name Role Phone Unassigned, Provider Primary Care Provider Unavailable Reason for Visit Reason Comments FEVER ABDOMINAL PAIN Encounter Details Date Type Department Care Team Description 09/17/2000 Telephone [facility]line Ayleen Barker, FEVER; ABDOMINAL PAIN [address] Leanne Pérez RN [place], [place] [address] [address] [facility] [phone] [place] [address] Social History Tobacco Use Types Packs/Day Years Used Date Smoking Tobacco: Never Assessed Sex Assigned at Date Recorded Not on file documented as of this encounter Nursing Notes 09/17/2000 11:59 PM SPLASH LINE OPERATOR >> LEANNE BARKER WedSep 17, 2000 5:23 PM >> COMPLETED ON WedSep 17, 2000 5:42 PM >> CALL RECEIVED. Contact: merna maya [phone] TRIAGE REFERENCE: FEVER - PEDS CNG (c) [...] frandy berrios - NO SUB DOC, as law writer advised pt eval tonite, and mom wou ld like [facility] eval tonite 5:[address] berrios cb and VO = pt eval at [facility] tonite 5:41 PM cb to mom and informed of VO per dr. berrios. mom wants to bring pt to [facility]. note faxed to same. documented in this encounter Plan of Treatment Upcoming Encounters Date Type Specialty Care Team Description 08/10/2022 Appointment Gastroenterology Ashly Fortune, SAUSAGE WRAPPER, PROPULSION MOTOR AND GENERATOR REPAIRER [address] [place], [place] [phone] (Wo rk) documented as of this encounter Visit Diagnoses Not on filedocumented in this encounter Care Teams Chain Saw Mechanic Relationship Specialty Start Date End Date Unassigned, Provider PCP - General 05/05/00 04/24/[address] [place] [address] documented as of this encounter
--- OUTSIDE RECORDS SUMMARY | 2022-07-10 15:08 | XMS_ITS | Encounter Summary ---
:1990 Author Organization [facility] Address [address] [place] [address] Care Team Providers Name Role Phone Justina Santiago MD Primary Care Provider Unavailable Reason for Visit Reason Onset Date Comments LAB TESTS, NOS 07/08/2007 Encounter Details Date Type Department Care Team Description 07/08/2007 Telephone [facility] JackJustina grant MD LAB TESTS, N[place] [address] [place], [place] [address] Social History Tobacco Use Types [...] this Telephone Encounter to the following pool:cn. AL WINDING MACHINE HELPER documented in this encounter Plan of Treatment Upcoming Encounters Date Type Specialty Care Team Description 08/10/2022 Appointment Gastroenterology Ashly Fortune, MANAGER OF FINANCIAL REPORTING, CASH MANAGEMENT ASSOCIATE [address] [place], [place] [phone] (Wo rk) documented as of this encounter Visit Diagnoses Not on filedocumented in this encounter Care Teams [place] Maori Relationship Specialty Start Date End Date Justina Santiago MD PCP - General 04/25/07 02/03/10 documented as of this encounter
--- OUTSIDE RECORDS SUMMARY | 2022-07-10 15:08 | XMS_ITS | Encounter Summary ---
:1990 Author Organization [facility] Address [address] [place] [address] Care Team Providers Name Role Phone Justina Santiago MD Primary Care Provider Unavailable Reason for Referral Specialty Diagnoses / Procedures Referred By Contact Refer red To Contact Justina Santiago MD [facility] [address] [place] [address] Referral ID Status Reason Start Date Expiration [...] or Child Heal th Check (Primary Dx); [address] Jani Gipson MD Vaccin 1 Bacteria NEC; [place] 5543 3 Need Vaccination-Viral Disea se; [phone] Back Pain Social History Tobacco Use Types [...] 3:00 PM CD T Growth Chart: [facility] (Girls, 2-20 Years) documented in this encounter Patient Instructions Patient Yoybjpnkbaie42/04/2007 3:01 PM CDT It has been a pleasure attending to Juliette's health maintenance needs today. documented in this encounter Progress Notes Justina Santiago - 05/05/2007 3:01 PM CDT S> Juliette Gaming is a 16 yr female who presents accompanied by her mother for routine child guidance counselor. PARENTAL/PATIENT CONCERNS: occasional back and shoulder pain, no known injury SCHOOL Name: [employer] Grade: 10th Success: b's SPORTS/RECREATION/ACTIVITIES Sports: hockey [...] 3:00 PM CDT >> Jessika Astudillo CMA [facility] May 05, 2007 3:[address] Santiago has given the verbal ok to give immunizations to this patient. Please see immunization documentation for additional information. Jessika Astudillo CMA >> Jessika Astudillo CMA [facility] May 05, 2007 3:01 PM Eye exam: L: 20/ 20, R: 20/ 20 Lenses: NO documented in this encounter Plan of Treatment Upcoming Encounters Date Type Specialty Care Team Description 08/10/2022 Appointment Gastroenterology Ashly Fortune, GRANITE BLOCK PAVER, COMMUNITY CENTER COORDINATOR [address] [place] [address] (Wo rk) documented as of this encounter Results (ABNORMAL) HEMOGRAM/PLTS (07/13/2007 7:42 AM MAIL HANDLER) athologist Signature WBC 5.5 4.0 - 11.0 [facility] k/ul RBC 4.30 4.1 - 5.1 [facility] M/ul Hemoglobin 11.4 (L) 12.0 - [facility] 16.0 g/dl HCT 35.6 (L) 36.0 - [facility] 46.0 % MCV 82.7 78 - 98 fl [facility] MCH 26.5 25 - 35 pg [facility] MCHC 32.1 32 - 36 % [facility] RDW 14.3 11.5 - [facility] 14.5 % Platelets 310 150 - 450 [facility] k/ul Specimen Anatomical Collection Method Collection Time Receive d Time (Source) Location / / Volume Laterality 07/13/2007 7:42 AM 7 7:43 MAIL HANDLER AM MAIL HANDLER Justina Santiago MD LAB_1 Performing Organization Address City/State/ZIP Code Phon e Number [facility] [phone] PENDING SALE TO [facility] [address] [place] [phone] CHOLESTEROL LIPID PANEL FAST >12HR (07/13/2007 7:42 AM MAIL HANDLER) athologist Signature Cholesterol 198 <200 mg/dl [facility] Triglyceride 93 <200 mg/dl [facility] HDL 55 >35 mg/dl [facility] LDL, Calc. 124 mg/dl [facility] Hours Fasting 12 hours [facility] Specimen Anatomical Collection Method Collection Time Receive d Time (Source) Location / / Volume Laterality 07/13/2007 7:42 AM 7 7:43 MAIL HANDLER AM MAIL HANDLER Justina Santiago MD LAB_1 Performing Organization Address City/State/ZIP Code Phon e Number [facility] [phone] [facility] [address] [place] [phone] documented in this encounter Visit Diagnoses Diagnosis Routine infant or child health check - P rimary Need for other specified prophylactic va ccination against single bacterial disease Need for prophylactic vaccination and in oculation against other viral diseases(V04.89) Need for prophylactic vaccination and in oculation against other viral diseases Back pain Backache, unspecified documented in this encounter Care Teams Chemical Mixer Relationship Specialty Start Date End Date Justina Santiago MD PCP - General 04/25/07 02/03/10 documented as of this encounter
--- OUTSIDE RECORDS SUMMARY | 2022-07-10 15:08 | XMS_ITS | Encounter Summary ---
:1990 Author Organization [facility] Address [address] [place] [address] Care Team Providers Name Role Phone Unavailable Primary Care Provider Unavailable Reason for Visit Reason Comments MEDICATION CHECK Encounter Details Date Type Department Care Team Description 03/13/2010 Office Visit Elaine López, or Depressive Practice MD Disorder, Single [address] Episode, Moderate [place], [place] [address] [address] (Primary Dx) [phone] [place] [address] (Wo rk) Social History Tobacco Use Types [...] 03/13/2010 4:10 PM CD T Growth Chart: [facility] (Girls, 2-20 Years) documented in this [...] that next week she is going to [place] and she will start college and she [...] score today is 7. ASSESSMENT AND PLAN: Ppuukdgf-anym-wfx female to follow up with major depression. [...] Team Description 08/10/2022 Appointment Gastroenterology Ashly Fortune, ENGINEERING MODEL MAKER, CAUSTIC ROOM OPERATOR [address] [facility] [address] [place], [place] [address] (Wo rk) documented as of this encounter Visit Diagnoses Diagnosis Major depressive disorder, single episod e, moderate ([facility]) - Primary Major depressive disorder, single episod e, moderate documented in this encounter
--- OUTSIDE RECORDS SUMMARY | 2022-07-10 15:09 | XMS_ITS | Encounter Summary ---
:1990 Author Organization [facility] Address [address] [place] [address] Care Team Providers Name Role Phone Lazarus Galeas MD Primary Care Provider + [phone] Reason for Visit Reason Comments Urgent Care Head Injury Patient reports got knocked on ice playing hockey yesterday, this am neck hurts worse than yesterday, head hurts the same. Denies loss of consciousness, denies numbne ss/tingling of extremities. Encounter Details Date Type Department Care Team Description 11/24/2009 Office Visit [facility] Fox Duarte MD Head Contusion (Primary Dx); [facility]gent [facility] [place] NO INFO Neck Pain [address] [place], [place] 06/12/2022 [phone] Social History Tobacco Use Types Packs/Day Years [...] 11/24/2009 11:04 AM C DT Growth Chart: [facility] (Girls, 2-20 Years) documented in this [...] Cervicalgia documented in this encounter Care Teams Import/Export Specialist Relationship Specialty Start Date End Date Lazarus Galeas MD PCP - General 10/07/08 07/19/19 [address] [facility] [place] [address] documented as of this encounter
[2022-07-13 07:53] LABS: Rapid Plasma Reagin (RPR) Non Reactive (Non Reactive)
== END 2022-07-10 14:59 | disposition home or self-care (01) ==
PROVIDERS: PCP Physician Assistant Medical; Visit Provider Obstetrics & Gynecology
DX: Z34.93 Encounter for supervision of normal pregnancy, unspecified, third trimester (principal); Z3A.28 28 weeks gestation of pregnancy
CPT/HCPCS: 86592

== ENCOUNTER 2022-07-29 13:09 | Outpatient (CLI) | payer OTHER, SELFPAY ==
[2022-07-29 08:25] LABS: Glucose Fasting Check 87 mg/dl (60-115)
[2022-07-29 12:54] LABS: Glucose 1 Hour Gest 196 mg/dl (70-180)
[2022-07-29 12:54] LABS: Glucose GTT-Gestational 3 Hr 141 mg/dl (70-140)
== END 2022-07-29 13:10 | disposition home or self-care (01) ==
PROVIDERS: PCP Physician Assistant Medical; Visit Provider Obstetrics & Gynecology
DX: Z34.90 Encounter for supervision of normal pregnancy, unspecified, unspecified trimester (principal)
CPT/HCPCS: 82951; 82952

== ENCOUNTER 2022-08-07 13:51 | Outpatient (CLI) | payer OTHER, SELFPAY ==
--- NOTE | 2022-08-07 14:00 | CRLHL7_ITS ---
For Patients: As a result of the Century Cures Act, medical imaging exams and procedure reports are released immediately into your electronic medical record. You may view this report before your referring provider. If you have questions, please contact your health care provider. INDICATION: , COVID TECHNIQUE: Ultrasound OB pelvis transabdominal. Real-time brewer-scale imaging of the fetus was performed with color Doppler and spectral Doppler analysis of the umbilical artery without stress testing. COMPARISON: Obstetric ultrasound 05/22/2022 FINDINGS: Clinical Age: 32 weeks 0 days (LETHA 10/02/2022) Sonographic imaging demonstrates a single living intrauterine gestation. Fetus demonstrates a regular cardiac rate of 116 beats per minute. Fetus has a cephalic orientation. The placenta lies anterior. Umbilical artery SD ratio has a wide range from 2.7-5.7 on three separate measurements. Biometric measurements: Biparietal diameter: 7.3 centimeters corresponding to 29 weeks 1 day Head circumference: 27.5 centimeters corresponding to 30 weeks 0 days Abdominal circumference: 26.5 centimeters corresponding to 30 weeks 5 days Femur length: 5.9 centimeters corresponding to 30 weeks 4 days Estimated weight: 1576 grams, 6th percentile. Amniotic fluid single deepest vertical pocket: 4.4 cm. breathing movements, motion, and tone were all observed. IMPRESSION: 1. Single live intrauterine gestation with a clinical age of 32 weeks 0 days in vertex position. 2. Estimated weight of 1576 grams which is at the 6th percentile. Weight percentile as markedly reduced compared to the prior exam at which point with the 70th percentile. Findings are suggestive of intrauterine growth restriction. 3. Elevated umbilical artery SD ratio up to 5.7. 4. Normal biophysical profile score of 8 out of 8. Normal amniotic fluid. Results given to Dr. Leger and Dr. Bird by the licensed mortgage loan officer at 1500 on 08/07/2022 Dictated by Mino Ye MD @ 08/07/2022 4:23:54 PM (Electronically Signed)
[2022-08-07 15:12] VITALS: PULSE 91; O2SAT 97
[2022-08-07 15:13] VITALS: TEMP 36.9
[2022-08-07 15:17] VITALS: PULSE 100; O2SAT 96
[2022-08-07 15:22] VITALS: PULSE 94; O2SAT 97
[2022-08-07 15:24] VITALS: BP 108/66; PULSE 90
--- NOTE | 2022-08-07 17:54 | PC.OBNST ---
NST Note NST Note Start: 08/07/22 17:49 Freq: Status: Active Protocol: Document 08/07/22 17:50 YARSANI (Rec: 08/07/22 17:53 YARSANI [id number]) NST Note 2 Para (# of births) 0 EDC 10/02/22 Gestational Age In Weeks & Days 32 Weeks & 0 Days High Risk Factors Diabetes - Gestational Diet Controlled Patient Presented with Complaint(s) of Other Other Complaints provider requesting NST for new DX of IUGR and lower FHR baseline Reactive Yes Appropriate for Gestational Age Yes MARIIA Quinones Date 08/07/22 Reactive Yes Appropriate for Gestational Age Yes MARIIA Chopra Date 08/07/22 OB NST charge Yes Complete NST Note via Write Note Yes The provider's electronic signature indicates the NST is reactive/appropriate for gestational age. *Note to provider: If an addendum is required, open the patient's chart and click on the note under the Nurse/Allied Health tab.
== END 2022-08-07 16:00 | disposition home or self-care (01) ==
LOC: US 13:52 → OB 15:04
PROVIDERS: PCP Physician Assistant Medical; Visit Provider Obstetrics & Gynecology
DX: O98.513 Other viral diseases complicating pregnancy, third trimester (principal); U07.1 COVID-19; Z3A.32 32 weeks gestation of pregnancy
CPT/HCPCS: 59025; 76816; 76819; 76820; 99213

== ENCOUNTER 2022-08-12 10:14 | Outpatient (CLI) | payer OTHER, SELFPAY ==
[2022-08-12] VITALS (33 sets, daily range): PULSE 79–119; O2SAT 90–100
[2022-08-12] MEDS: BETAMETHASONE SOD PHOS/ACETATE 6 MG/ML ML 12 MG IM (10:56)
[2022-08-12] MEDS: LACTATED RINGERS 1000 ML 1,000 ML IV (10:57)
--- NOTE | 2022-08-12 14:07 | PC.OBNST ---
NST Note NST Note Start: 08/12/22 10:18 Freq: ONCE Status: Active Protocol: Document 08/12/22 14:04 [facility] (Rec: 08/12/22 14:06 [facility] [id number]) NST Note 2 Para (# of births) 0 EDC 10/02/22 Gestational Age In Weeks & Days 32 Weeks & 5 Days High Risk Factors Diabetes - Gestational Diet Controlled Patient Presented with Complaint(s) of Other Other Complaints Pt sent from the clinic for an NST following low FHR in the clinic. Reactive Yes Appropriate for Gestational Age Yes RN Jenaro Bueno RN Date 08/12/22 Reactive Yes Appropriate for Gestational Age Yes RN Rosmery Patel RN Date 08/12/22 OB NST charge Yes Complete NST Note via Write Note Yes The provider's electronic signature indicates the NST is reactive/appropriate for gestational age. *Note to provider: If an addendum is required, open the patient's chart and click on the note under the Nurse/Allied Health tab.
== END 2022-08-12 13:25 | disposition home or self-care (01) ==
LOC: OB OUT 10:15 → OB 10:15
PROVIDERS: PCP Physician Assistant Medical; Visit Provider Obstetrics & Gynecology
DX: O36.5930 Maternal care for other known or suspected poor fetal growth, third trimester, not applicable or unspecified (principal); O24.419 Gestational diabetes mellitus in pregnancy, unspecified control; Z3A.32 32 weeks gestation of pregnancy
CPT/HCPCS: 59025; 76819; 76820; 99213; J0702; J7120

== ENCOUNTER 2022-08-18 11:59 | Outpatient (CLI) | payer OTHER, SELFPAY ==
--- NOTE | 2022-08-18 12:00 | CRLHL7_ITS ---
For Patients: As a result of the Cures Act, medical imaging exams and procedure reports are released immediately into your electronic medical record. You may view this report before your referring provider. If you have questions, please contact your health care provider. Indication: Nonreactive nonstress test. IUGR. Elevated systolic to diastolic ratios on prior examinations Technique: Sonography of the gravid uterus was performed. A limited study was performed restricted to only that which is discussed below. Comparison: August 12, 2022 Findings: The cervix was not visualized. position is vertex. There is oligohydramnios. The single deepest pocket is 1.8 centimeters and the total LOTTIE is 4.5 centimeters. The biophysical profile score is 6 out of 8. The 0 score was for the amniotic fluid volumes as there is no single deepest pocket greater than 2 centimeters. The placenta is anterior. heart rate is 116 beats per minute. The umbilical artery systolic to diastolic ratio is 3.9. At this point gestation, less than 4 is considered normal. Impression: 1. Single live intrauterine gestation that is vertex. heart rate is 116 beats per minute 2. Low fluid volumes. The single deepest pocket is 1.8 centimeters and the total LOTTIE is 4.5 centimeters. 3. The systolic to diastolic ratio is 3.9 which is considered high normal 4. The biophysical profile score is 6/8. The 0 score was for low fluid volumes. Dictated by Royal Franks MD @ 08/18/2022 1:47:49 PM (Electronically Signed)
== END 2022-08-18 12:00 | disposition home or self-care (01) ==
PROVIDERS: PCP Physician Assistant Medical; Visit Provider Obstetrics & Gynecology
DX: O36.5990 Maternal care for other known or suspected poor fetal growth, unspecified trimester, not applicable or unspecified (principal)
CPT/HCPCS: 76819; 76820

== ENCOUNTER 2022-08-21 07:21 | Outpatient (CLI) | payer OTHER, SELFPAY ==
--- NOTE | 2022-08-21 07:15 | CRLHL7_ITS ---
For Patients: As a result of the Century Cures Act, medical imaging exams and procedure reports are released immediately into your electronic medical record. You may view this report before your referring provider. If you have questions, please contact your health care provider. INDICATION: IUGR COMPARISON: 08/18/2022 TECHNIQUE: Real time brewer scale imaging of the fetus was performed as well as color Doppler and spectral Doppler analysis of the umbilical artery. Without non-stress testing. FINDINGS: Sonographic imaging demonstrates a single living intrauterine gestation. Fetus demonstrates a regular cardiac rate of 114 beats per minute. Fetus has a vertex orientation with spine to the maternal left. The umbilical artery demonstrates slightly decreased diastolic blood flow. The S/D ratio is slightly elevated measuring approximately 4. The amniotic fluid volume appears lower limits of normal and there is a single deepest pocket measurement of 4.0 cm. LOTTIE 7.7 cm. The fetus was active and demonstrated normal breathing movements. There was normal flexion and extension of the trunk and extremities. IMPRESSION: Normal biophysical profile score of 8 out of 8. Amniotic fluid volume is lower limits of normal with LOTTIE 7.7 cm. Mildly elevated end-diastolic umbilical artery flow suggesting some degree of placental insufficiency. Dictated by Jose Pruitt MD @ 08/21/2022 9:31:07 AM (Electronically Signed)
== END 2022-08-21 07:22 | disposition home or self-care (01) ==
LOC: US 07:21
PROVIDERS: PCP Physician Assistant Medical; Visit Provider Obstetrics & Gynecology
DX: O36.5990 Maternal care for other known or suspected poor fetal growth, unspecified trimester, not applicable or unspecified (principal); O43.199 Other malformation of placenta, unspecified trimester
CPT/HCPCS: 76819; 76820

== ENCOUNTER 2022-08-28 08:18 | Outpatient (CLI) | payer OTHER, SELFPAY ==
--- NOTE | 2022-08-28 08:15 | CRLHL7_ITS ---
For Patients: As a result of the Cures Act, medical imaging exams and procedure reports are released immediately into your electronic medical record. You may view this report before your referring provider. If you have questions, please contact your health care provider. INDICATION: IUGR. COMPARISON: OB ultrasound 08/21/2022. TECHNIQUE: Real time brewer scale imaging of the fetus was performed without non-stress testing. Color Doppler and spectral Doppler analysis of the umbilical artery was performed. FINDINGS: Sonographic imaging demonstrates a single living intrauterine gestation. The fetus demonstrates a regular cardiac rate of 123 beats per minute. The fetus has a cephalic orientation. The placenta lies anteriorly. Multiple umbilical artery measurements were obtained with S/D ratios ranging from 3.1-7.0 and average of 4.8. On prior exam, the highest S/D ratio measured 5.0 with an average of 3.1. Intermittent absent end-diastolic flow is noted. Single deepest pocket measures 3.0 cm (2/2). The fetus demonstrated normal breathing movements (2/2). Gross body movements were not witnessed (0/2). tone was not witnessed (0/2). IMPRESSION: 1. Abnormal biophysical profile score 4 out of 8. Gross body movements and tone were not witnessed. 2. Abnormally elevated umbilical artery S/D ratios with intermittent absent end-diastolic flow. Ratios are increased compared to prior exam. Dictated by Bethanie Hernandez MD @ 08/28/2022 11:44:12 AM (Electronically Signed)
== END 2022-08-28 08:19 | disposition home or self-care (01) ==
LOC: US 08:19
PROVIDERS: PCP Physician Assistant Medical; Visit Provider Obstetrics & Gynecology
DX: O36.5990 Maternal care for other known or suspected poor fetal growth, unspecified trimester, not applicable or unspecified (principal); Z3A.32 32 weeks gestation of pregnancy
CPT/HCPCS: 76816; 76819; 76820; C9290; J3490

== ENCOUNTER 2022-08-28 10:28 | Inpatient (IN) | payer OTHER, SELFPAY ==
[2022-08-28] VITALS (69 sets, daily range): BP systolic 94–122; BP diastolic 44–75; PULSE 52–94; RESP 16–18; TEMP 36–37.1; O2SAT 91–99; BMI 38.0
[2022-08-28] MEDS: LACTATED RINGERS 1000 ML 1,000 ML 1200 ML IV (10:47)
--- NOTE | 2022-08-28 10:48 | P.OBHP_ITS ---
OB - H&P: HPI History of Present Illness Chief complaint: Maternity : 2 Para: 0 Narrative: Juliette Gaming is a 32 year old female at 35w0d being managed for know growth restriction. She was diagnosed with FGR at 32 weeks with EFW 6% and elevated dopplers.? Referred to [facility] 08/07/22 for assessment and had subsequently received the rest of her surveillance here. Today, her BPP was 4/8 with a non reactive NST making her total score 4/10. Additionally, fetus EFW is <3rd percentile ruling in for severe FGR. She also has intermittent absent end diastolic flow. Currently NST with baseline of 110s, moderate variabilit, no accel and no decel. All of these findings were discussed extensively with patient and her family. Given all these factors we will move toward urgent delivery. OR and pediatric team notified. S/p BMZ benefit. Pt endorses decreased movement. Denies contraction, LOF, vaginal bleeding or abnormal vaginal discharge. Patient denies fever, chills, chest pain, SOB, n/v, headache, vision changes, RUQ pain, or dizziness. Other obstetrical review: 1. Unspecified connective tissue disorder Self discontinued hydroxychloroquine in August of 2021. Rheumatology consult pending for week of 06/22/22:? Rheumatology recommended continuing to hold hydroxychloroquine.? Notes scanned in chart 2. Depression and anxiety, doing well without medication 3. Gastroesophageal reflux, omeprazole 20 mg 4. Obesity, BMI 39.1 Hemoglobin A1c:? 5.3% Recommend 81 mg of aspirin (nulliparous/BMI) 5. Varicella non-immune Vaccinate PP 6. Covid positive 06/06/22- out of quarantine 06/15/22 * US for EFW at 30-32 weeks. 7.? GDM.? Referral to Nutrition placed 08/07/2022. - Well controlled with diet 8. Hemoglobin 10.4 at 28 weeks.? Intolerant of iron tablets.? Using liquid iron.? Increased the that may be bowel movements ago Flu shot: COVID:? 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 Nonsmoker. Smoking Status: Never smoker Little interest or pleasure in doing things: several days Feeling down, depressed, or hopeless: several days Meds Home Medications and Allergies Home Medications Medication Instructions Recorded Confirmed Type calcium citrate 200 mg 2 tab PO DAILY 02/16/22 08/25/22 History calcium-vitamin D3 6.25 mcg (250 unit) tablet omeprazole 20 mg capsule,delayed mg PO DAILY 02/16/22 08/25/22 History release prenat.vits,macrina,vgg-ybbi-ohuhu 1 tab PO QDAY 02/16/22 08/25/22 History aspirin 81 mg tablet,delayed 81 mg PO QDAY 05/22/22 08/25/22 History release docusate sodium 100 mg capsule 100 mg PO QDAY PRN 08/21/22 08/25/22 History (Colace) ferrous sulfate 220 mg (44 mg 220 mg PO .every other day 08/21/22 08/25/22 History iron)/5 mL oral elixir Allergies Allergy/AdvReac Type Severity Reaction Status Date / Time No Known Allergies Allergy Unverified 08/28/22 08:26 OB - H&P: Exam Physical Exam: Narrative: Physical exam: General: No acute distress Psych: Alert and oriented x3, full affect HEENT: Normocephalic, atraumatic Heart: Regular rate and rhythm, no murmur rub or gallop Lungs: Clear to auscultation bilaterally Abdomen: Gravid, soft, no tenderness, rebound, or guarding Skin: No lesions or rashes Lower extremities: No edema or erythema Pelvic exam: Deferred to OR Assessment and Plan Assessment and plan (1) IUGR (intrauterine growth restriction) affecting care of mother: Status: Acute (2) Gestational diabetes: Status: Acute (3) : Status: Acute (4) Gastroesophageal reflux disease: Status: Acute (5) Mixed connective tissue disease: Status: Acute (6) History of depression: Status: Acute Plan CS Consent The patient was consented for section and blood. She understands that the three main categories of risk include bleeding, infection, and damage to surrounding structures. Regarding infection, she understands that we will be delivering appropriate antibiotics, however that the risk of infection following section still is approximately 5%. She understands that though the risk is very low that there is always a risk of damage to the bladder, uterus, ovaries, fallopian tubes, bowels, ureters, or even the fetus. She understands that most injuries can be addressed at the time of surgery, however, such an injury may require additional surgeries to fix. Lastly, she understands that a section carries a risk of bleeding, and that while this bleeding can be addressed with multiple medical and surgical modalities, that there is the possibility of needing a blood transfusion. She reports she would accept a blood transfusion understanding the risks of a 1/200,000 risk of Hepatitis and 1/2,000,000 risk of HIV as well as the risk of having an allergic reaction to the blood products. She further understands that this reaction is typically mild, however can be severe including respiratory distress and necessitating ICU-level care. Lastly, she understands that a section does increase risks for future pregnancies and deliveries including, but not limited to, the risk of uterine rupture or placenta accreta. We also discussed that baby has a higher risk of needing transfer to high level of care depending on status after delivery. All questions were answered to patient's satisfaction. Will move towards urgent delivery.
[2022-08-28 10:55] LABS: Hemoglobin* 10.4 gm/dL (12.0-16.0)
[2022-08-28 11:20] LABS: SARS PCR* Negative SARS-CoV-2 (Negative)
--- NOTE | 2022-08-28 12:09 | W.PM.NB ---
Nerve Block Nerve Block Time Seen by Provider: 12:00 Type of block requested by surgeon for post-operative analgesia: TAP Side: bilateral Time out performed: Yes Verification of patient name: Yes Verification of date of : Yes Site marking: site marked Name of person performing procedure: Josh Petra Continuous monitoring Was continuous monitoring of O2 sat, B/P, vehicle monitor technician, recorded every 15 minutes?: Yes Procedure Checklist: sterile prep, needles and gloves Ultrasound guided. Images saved: Yes Medications given in 5ml increments after negative aspiration: Marcaine %: 0.25 mL: 30 and Exparel mL: 10 Block Charges Block Charge (with Pro Fee): TAP Bilateral Use of Ultrasound Machine for Block: Yes- US Guidance/pain block
--- NOTE | 2022-08-28 12:09 | W.ANESCHARGE ---
Anesthesia Charges Start Date/Time Anesthesia Start Date: 08/28/22 Anesthesia Start Time: 11:00 Stop Date/Time Anesthesia Stop Date: 08/28/22 Anesthesia Stop Time: 12:03 Summary Emergency: Yes
--- NOTE | 2022-08-28 12:11 | P.OBPRC_ITS ---
Procedure Pre-op/Post-op diagnoses: Pre-Op/Post-Op Diagnoses Operation Date: 08/28/22 11:00 <No data on this case meets the specified criteria> Procedure Done: Global Procedure Details: Procedures Operation Date: 08/28/22 11:00 Actual Procedure Side Surgeon p Section Suha Shaw MD Correctional Case Manager: Una Anthony Disposition: floor Anesthesia type: Spinal Complications: None Narrative: DELIVERY BY SECTION Date of Service: 08/28/2022 at 1119 Summary: Admitted for severe growth restriction with intermittent absent end-diastolic flow with BPP of 4/10, Primary Lower uterine transverse section, Pfannenstiel, Closed with sutures, QBL 253 cc, No complications, Findings: Normal uterus, bilateral ovaries and tubes 8/8, weight pending. Primary Indication: sFGR with intermittent AEDF BPP 4/10 Procedures: Primary Lower uterine transverse section Specimens Removed: Placenta Surgeon: Suha Shaw MD Report: Prophylactic antibiotic, 2 g of Ancef was given before patient was taken to OR. After arrival to the operating room patient was placed in the supine position with left lateral tilt after administration of spinal anesthesia. Laparotomy A pfannenstiel incision was made through the anterior abdominal wall with #10 scalpel approximately 2 cm above the pubic symphysis. The incision was extended sharply with the #10 scalpel through the subcutaneous tissue to the level of fascia. The fascia was entered sharply with a #10 scalpel (Pfannenstiel) in the midline and extended in semi-elliptical fashion bluntly with digits. The fascia was further from rectus muscle bluntly with digits using the misgav- ladach technique. The rectus muscles were in the midline bluntly with digits. The peritoneum was then entered bluntly. The peritoneal incision was then extended superiorly and inferiorly under direct visualization with care being taken to avoid bladder and bowel. No adhesions were noted. The peritoneal incision was enlarged bluntly by lateral traction from the surgeon's and airline pilot/first officer's hand. Vladimir retractor was inserted into the abdomen. Delivery A bladder flap was not developed as bladder was low. A low transverse hysterotomy was made then with #10 scalpel and extended laterally and cephalad with fingers in a low transverse fashion with Manu Lopez technique with care being taken to avoid injury to the fetus. The amniotic cavity (membrane) was then entered with spontaneous rupture of membrane, and the amniotic fluid was noted to be clear, placenta was anterior, so surgeon's hand worked around the placenta to grasp head. Fetus was delivered in cephalic presentation with flexion of head and abdominal pressure. With delivery of the baby, no extension was noted. Placenta was delivered spontaneously with steady traction on cord and manual separation of placenta from uterine wall. Closure Uterine cavity was cleaned after placental delivery with lap sponge x 2. The hysterotomy was closed in one layer with stitches using 0 vicryl with continuous locking stitches. Hemostasis was achieved as needed with electrocautery. The ovaries/tubes/urine surface were evaluated. They were found to be normal. Fascia was closed with running stitches using 0 vicryl. Hemostasis was checked for and found to be adequate. The subcutaneous layer was closed with running Vicryl sutures. The skin was closed with monocryl subcuticular sutures . The incision was cleaned and covered with a compression bandage and the procedure considered terminate at this time. Pediatric team was in the OR during the delivery of the baby. Intraoperative Complications: None QBL: 253 cc Uterotonics: 30u of pitocin Disposition: The patient tolerated the procedure well. She was recovered in Obstetric PACU for close monitoring in stable condition, with a contracted uterus and normal transvaginal bleeding. Baby was given to care of pediatric team. The placenta was sent to pathology due to growth restriction.
[2022-08-28] MEDS: PHENYLEPHRINE 100 MCG/ML SYRINGE IVP (12:41)
[2022-08-28] MEDS: PROMETHAZINE 25 MG/ML INJ 12.5 MG IVP (13:12)
[2022-08-28] MEDS: LACTATED RINGERS 1000 ML 1,000 ML 100 ML IV (13:24)
[2022-08-28 13:46] LABS: Amphetamine Screen Urine Negative (Negative); Barbiturate Screen Urine Negative (Negative); Benzodiazepines Screen Urine Negative (Negative); Cannabinoid Screen Urine Negative (Negative); Cocaine Screen Urine Negative (Negative); Methadone Screen Urine Negative (Negative); Methamphetamines Screen Urine Negative (Negative); Opiate Screen Urine Negative (Negative); Oxycodone Screen Urine Negative (Negative); Phencyclidine Screen Urine Negative (Negative); Tricyclic Antidepressant Urine Negative (Negative)
[2022-08-28] MEDS: KETOROLAC 30 MG/ML inj IVP (17:49)
[2022-08-28] MEDS: diphenhydrAMINE 50 MG/ML inj 12.5 MG IVP (20:05)
[2022-08-28] MEDS: ACETAMINOPHEN 500 MG TABLET 1000 MG PO (22:17)
[2022-08-29] VITALS (13 sets, daily range): BP systolic 96–114; BP diastolic 62–81; PULSE 68–82; RESP 16–18; TEMP 36.5–36.9; O2SAT 96–98
[2022-08-29] MEDS: KETOROLAC 30 MG/ML inj IVP ×3 (00:09→11:53)
[2022-08-29] MEDS: SODIUM CHLORIDE 0.9 % (FLUSH) 10 ML SYRINGE IVF ×3 (00:10→11:53)
[2022-08-29] MEDS: ACETAMINOPHEN 500 MG TABLET 1000 MG PO ×4 (03:59→22:25)
[2022-08-29 07:36] LABS: Hemoglobin* 8.1 gm/dL (12.0-16.0)
[2022-08-29] MEDS: DOCUSATE SODIUM 100 MG CAPSULE PO (10:07)
[2022-08-29] MEDS: SIMETHICONE 80 MG TAB.CHEW PO (11:58)
--- NOTE | 2022-08-29 12:02 | PM.OBPNCS1 ---
OB - PN: A/P Assessment and Plan (1) Gestational diabetes: Problem details: Diet controlled. Status: Acute Assessment and Plan: Repeat 2 hour GTT at 6 weeks (2) History of prior with IUGR : Problem details: Status post at 35 weeks, 0 days gestation in the setting of IUGR. doing well on CPAP, transferred for respiratory distress. Status: Acute (3) Anemia complicating puerperium: Problem details: Hemoglobin 8.1 today Status: Acute Assessment and Plan: Increased ferrous sulfate twice daily. (4) S/P section: Status: Acute Assessment and Plan: Appropriate postoperative course. Routine postoperative care. Anticipate discharge tomorrow morning. Plan day: 1 OB - PN: Subj Subjective Date Seen: 08/29/22 Interval history: Juliette is a 32 yo G1 now P 0-1-0-1 woman s/p primary delivery for non-reasurring status in the setting of IUGR at 35 0/7 weeks' gestation on 08/29/22. OB Problem List: 1. Unspecified connective tissue disorder Self discontinued hydroxychloroquine in August of 2021. Rheumatology consult pending for week of 06/22/22:? Rheumatology recommended continuing to hold hydroxychloroquine.? Notes scanned in chart 2. Depression and anxiety, doing well without medication 3. Gastroesophageal reflux, omeprazole 20 mg 4. Obesity, BMI 39.1 Hemoglobin A1c:? 5.3% Recommend 81 mg of aspirin (nulliparous/BMI) 5. Varicella non-immune Vaccinate PP 6. Covid positive 06/06/22- out of quarantine 06/15/22 US for EFW at 30-32 weeks.7.? GDM.? Referral to Nutrition placed 08/07/2022. - Well controlled with diet 7. GDM. Referral to Nutrition placed 08/07/2022. 8. EFW 6% at 32 weeks (08/07/2022). Elevated SD ratio at 5.7. SDP normal at 4.4 cm. BPP 05/11. Referred to [facility] 08/07/22. 08/13/2022: Confirmed IUGR, EFW 5%, AC 6%, MVP 2.7 cm, normal umbilical SD ratio, baseline FHR 110 MFM recommended weekly BPP w/ doppler studies [facility] in 3 weeks to repeat a growth and BPP there. Delivery: if EFW remains 3-10% and no other concerns 38w0d - 39w0d. if EFW is < 3%: then deliver at 37w0d or later at the time of diagnosis If SD ratio is elevated deliver at 37w0d or later (at time of diagnosis) IF absent end diastolic flow then [id number] 9. Hemoglobin 10.4 at 28 weeks.? Intolerant of iron tablets.? Using liquid iron.? Flu shot: COVID:? Vaccinated and boosted Narrative: Juliette is managing soreness ok. She has not walked the halls yet, but plans to do so this afternoon. Her son was transferred to [place] yesterday, and is currently doing well with CPAP. She would like to be discharged early tomorrow so that she can go and visit him. She is pumping and getting a little bit out. She would like to since of that along to him today. She has been able to urinate without difficulty after discontinuation of catheter. She does report bleeding every time she stands up. She is tolerating regular diet, but has not passed flatus yet. OB - PN: Obj Exam Physical Exam: Vital signs: Temp Pulse Resp BP Pulse Ox O2 Del Method 98.5 F 77 18 96/62 98 08/29/22 10:05 08/29/22 10:05 08/29/22 10:05 08/29/22 10:05 08/29/22 10:05 08/29/22 10:05 Narrative: General: Pleasant, no acute distress Heart: Regular rate and rhythm, no murmur or gallop Lungs: Clear to auscultation bilaterally Abdomen: Soft, nontender, fundus well below umbilicus, normoactive bowel sounds Incision: Clean, dry, and intact Lower extremities: No edema or erythema Urinary Catheter Management: 2-way Urethral: Cath placed during this visit: no Reason for continuing: surgical procedure OB - PN: Obj Data Labs Labs: Laboratory Results - last 24 hr 08/28/22 08/29/22 12:57 07:17 Hgb 8.1 L Urine Opiates Screen Negative Ur Oxycodone Screen Negative Urine Methadone Screen Negative Ur Propoxyphene Screen Negative Ur Barbiturates Screen Negative U Tricyclic Antidepress Negative Ur Phencyclidine Scrn Negative Ur Amphetamines Screen Negative U Methamphetamines Scrn Negative U Benzodiazepines Scrn Negative Urine Cocaine Screen Negative U Marijuana (THC) Screen Negative
[2022-08-29] MEDS: FERROUS SULFATE 325 MG TABLET PO (17:59)
[2022-08-29] MEDS: IBUPROFEN 600 MG TABLET PO (20:04)
[2022-08-29] MEDS: hydrOXYzine pamoate 25 MG CAPSULE 100 MG PO (22:41)
[2022-08-30] MEDS: IBUPROFEN 600 MG TABLET PO ×2 (02:47→09:19)
[2022-08-30 02:52] VITALS: BP 110/76; PULSE 83; RESP 16; TEMP 36.9; O2SAT 97
[2022-08-30] MEDS: ACETAMINOPHEN 500 MG TABLET 1000 MG PO (04:48)
--- NOTE | 2022-08-30 07:44 | P.DS_ITS ---
DS: Providers Provider Date Seen: 08/30/22 Date of admission: 08/28/22 10:28 Primary care physician: Pratik Rios PA-C Admitting Clinician: Suha Shaw MD Consults: 08/28/22 12:53 Consult to Training Technician [CONS] Routine Comment: Reason for Consult:: Substance Abuse Screening Attending Physician on discharge: Ilene Leger MD Date of Discharge: 08/30/22 DS: Diagnosis Discharge Diagnosis (1) S/P section: Status: Acute Problem details: Status post at 35 weeks, 0 days gestation on 08/28/2022 in the setting of IUGR and nonreassuring testing (2) Anemia complicating puerperium: Status: Acute Problem details: Hemoglobin 8.1 on postoperative day 1 (3) History of prior with IUGR : Status: Acute Problem details: Status post at 35 weeks, 0 days gestation in the setting of IUGR. Infant doing well on CPAP, transferred for respiratory distress. (4) Gestational diabetes: Status: Acute Problem details: Diet controlled. 2 hour oral glucose tolerance test at 6 weeks . Exam Narrative: Exam Narrative: General: Pleasant, no acute distress Heart: Regular rate and rhythm, no murmur or gallop Lungs: Clear to auscultation bilaterally Abdomen: Soft, nontender, fundus well below umbilicus, normoactive bowel sounds Incision: Clean, dry, and intact Lower extremities: No edema or erythema Const: Vital Signs, click to edit/add: Vital Signs - 24 hr 08/29/22 10:05 08/29/22 17:00 08/29/22 20:07 Temperature 98.5 F 98.5 F 97.7 F Pulse Rate [Pulse Oximeter] 77 82 79 Respiratory Rate 18 16 16 Blood Pressure [Le ft Arm] 96/62 107/74 114/81 Pulse Oximetry 98 98 98 Oxygen Delivery Me thod Room Air Room Air Room Air 08/30/22 02:52 Temperature 98.4 F Pulse Rate [Pulse Oximeter] 83 Respiratory Rate 16 Blood Pressure [Le ft Arm] 110/76 Pulse Oximetry 97 Oxygen Delivery Me thod Room Air DS: Data Data Completed and Pending Labs on day of discharge: Labs from last 24 hours 08/29/22 07:17 Hgb 8.1 L OB - DS: Summary Hospital Course Hospital Course: Juliette is a 32 yo G1 now P 0-1-0-1 woman s/p primary delivery for non- reasurring status in the setting of IUGR at 35 0/7 weeks' gestation on 08/29/22.? OB Problem List: 1. Unspecified connective tissue disorder Self discontinued hydroxychloroquine in August of 2021. Rheumatology consult pending for week of 06/22/22:? Rheumatology recommended continuing to hold hydroxychloroquine.? Notes scanned in chart 2. Depression and anxiety, doing well without medication 3. Gastroesophageal reflux, omeprazole 20 mg 4. Obesity, BMI 39.1 Hemoglobin A1c:? 5.3% Recommend 81 mg of aspirin (nulliparous/BMI) 5. Varicella non-immune Vaccinate PP 6. Covid positive 06/06/22- out of quarantine 06/15/22 * for EFW at 30-32 weeks.7.? GDM.? Referral to Nutrition placed 08/07/2022.- Well controlled with diet 7.? GDM.? Referral to Nutrition placed 08/07/2022. 8. EFW 6% at 32 weeks (08/07/2022).? Elevated SD ratio at 5.7.? SDP normal at 4.4 cm. ? BPP 05/11.? Referred to [facility] 08/07/22.? * 08/13/2022: Confirmed IUGR, EFW 5%, AC 6%, MVP 2.7 cm, normal umbilical SD ra felicia, baseline FHR 110 * [facility] recommended weekly BPP w/ doppler studies * Returm to [facility] in 3 weeks to repeat a growth and BPP there. * Delivery: if EFW remains 3-10% and no other concerns 38w0d - 39w0d. if EFW is < 3%: then deliver at 37w0d or later at the time of diagnosis If SD ratio is elevated deliver at 37w0d or later (at time of diagnosis) IF absent end diastolic flow then [id number] 9. Hemoglobin 10.4 at 28 weeks.? Intolerant of iron tablets.? Using liquid iron.? Juliette had an uncomplicated course.?Her son was transferred to [place] on the day of , and she desired discharge early on postoperative day 2 to go visit him.? She is pumping and getting a little bit out.? She does report bleeding every time she stands up.? She is tolerating regular diet, and is passing flatus, but has not had bowel movement yet. Her hemoglobin was 8.1 on postoperative day 1, and she was continued on iron supplementation. She plans to take liquid iron at home. Peripartum Data Procedures: Procedures Operation Date: 08/28/22 11:00 Actual Procedure Side Surgeon p Section Suha Sailaja Shaw MD Infant Gender: Male Time Spent with Patient Time attestation: Total time spent providing and/or coordinating discharge services: Discharge Plan Discharge Disposition: Home, Self-Care Date of Admission: 08/28/22 10:28 Attending Provider on Discharge: Ilene Leger Primary Care Provider: Pratik Rios Condition: Improved Anticipated Discharge Date/Time: 08/30/22 08:05 Discharge Medications: New oxycodone 5 mg Tablet 5 - 10 mg PO Q4H PRN (Reason: Pain) Qty: 20 0RF acetaminophen 500 mg Tablet 1,000 mg PO Q6H PRN (Reason: pain/fever) Qty: 0 0RF ibuprofen 600 mg Tablet 600 mg PO Q6H PRN (Reason: Pain) Qty: 0 0RF Lanolin (HPA) 100 % Cream 1 applic topical Q1H PRNQty: 0 0RF polyethylene glycol 3350 [Miralax] 17 gram Powder In Packet 17 g PO DAILY PRNQty: 0 0RF Continued docusate sodium [Colace] 100 mg capsule 100 mg PO QDAY PRN ferrous sulfate 220 mg (44 mg iron)/5 mL elixir 220 mg PO .every other day calcium citrate-vitamin D3 200 mg-6.25 mcg (250 unit) tablet 2 tab PO DAILY omeprazole 20 mg capsule,delayed release(DR/EC) 20 mg PO DAILY prenat.vits,macrina,eka-wyxo-lpovt Tablet 1 tab PO QDAY Discontinued aspirin 81 mg tablet,delayed release (DR/EC) 81 mg PO QDAY No Action (DME) Test Strips Misc See Rx Instructions .MEDSUPPLY Qty: 100 3RF Rx Instructions: Test blood sugar 4 times daily. (DME) Blood Glucose Meter Misc See Rx Instructions .MEDSUPPLY Qty: 1 0RF Rx Instructions: one meter (DME) lancets Misc See Rx Instructions .MEDSUPPLY Qty: 100 3RF Rx Instructions: Test blood sugar 4 times daily. Discharge Orders: Discharge Order (Routine); Ordered 08/30/22 Ordered By: Ilene Leger Patient Education: OB /Breast Feeding Activity Detail: No lifting greater than 20 lb for 6 weeks. Nothing per vagina for 6 weeks. No driving while taking narcotic pain medicines. Do not submerge incision under water for 3 weeks. Discharge Diet: Regular Follow Up Appointments: Pratik Rios PA-C [Primary Care Provider] - Ilene Leger MD [Staff Physician] - Forms: MyHealth Info Instructions Discharge Comments: Follow-up 2 and 6 weeks .
[2022-08-30 08:20] VITALS: BP 118/72; PULSE 88; RESP 16; TEMP 36.9; O2SAT 98
[2022-08-30] MEDS: FERROUS SULFATE 325 MG TABLET PO (08:25)
[2022-08-30] MEDS: DOCUSATE SODIUM 100 MG CAPSULE PO (08:26)
[2022-08-30] MEDS: OMEPRAZOLE 20 MG CAPSULE DR PO (09:19)
[2022-08-30] MEDS: polyethylene glycoL 3350 17 GM PACK PO (09:19)
== END 2022-08-30 11:25 | disposition home or self-care (01) | DRG 787 ==
PROVIDERS: Admitting Provider Obstetrics & Gynecology; PCP Physician Assistant Medical; Visit Provider Obstetrics & Gynecology
PROC: 10D00Z1 Extraction of Products of Conception, Low, Open Approach (ICD-10-PCS; CPT 59514; principal; 2022-08-28 10:45)
DX: O36.5930 Maternal care for other known or suspected poor fetal growth, third trimester, not applicable or unspecified (principal); M35.1 Other overlap syndromes; O24.420 Gestational diabetes mellitus in childbirth, diet controlled; K21.9 Gastro-esophageal reflux disease without esophagitis; O99.344 Other mental disorders complicating childbirth; F32.A Depression, unspecified; F41.9 Anxiety disorder, unspecified; O99.02 Anemia complicating childbirth; D64.9 Anemia, unspecified; Z37.0 Single live birth; Z3A.35 35 weeks gestation of pregnancy
CPT/HCPCS: 01961; 36415; 64488; 76942; 80306; 85018; 86850; 86900; 86901; 87635; 88307; 99140; A9270; J1100; J1200; J1885; J2274; J2370; J2405; J2550; J7120

== ENCOUNTER 2023-11-09 14:43 | Outpatient (CLI) | payer OTHER, SELFPAY ==
--- OUTSIDE RECORDS SUMMARY | 2023-11-09 14:45 | XMS_ITS | Encounter Summary ---
Author Name Unknown Organization [facility] Address [address] [place] [address] Care Team Providers Care Final Armature Tester Name Role Phone Needs Pcp, Assignment Primary Care Provider Encounter Details Date Type Department Care Team (Late Contact Info) Description 09/28/2017 Refill Order [facility] [address] [place], [place] [id number] [place] [address] [place], [place] [id number] Social History Tobacco Use Types Packs/Day Years Used Date Smoking Tobacco: Former Smokeless Tobacco: Never Alcohol Use Standard Drinks/Week Comments Yes 0.8 (1 standard drink = 0.6 oz p ure alcohol) soc Sex and Gender Information Value Date Recorded Sex Assigned at Not on file Gender Identity Not on file Sexual Orientation Not on file documented as of this encounter Nursing Notes * Trenton West CMA - 09/30/2017 8:46 AM CST Reviewed and pt notified. Trenton West CMA 09/30/2017, 8:46 AM AIN CANNERY TENDER documented in this encounter Plan of Treatment Upcoming Encounters Date Type Department Care Team (Late Contact Info) Description 11/24/2023 1:30 PM CDT Appointment [facility] [address] [facility] [address] [place] [address] 11/24/2023 2:30 PM CDT Office Visit [facility] [address] [facility] [address] [place] [address] Jose Luis Grullon MD [address] [facility] [address] [place] [address] documented as of this encounter Visit Diagnoses Diagnosis Encounter for long-term (current) use of medications- Primary Encounter for long-term (current) use of other medications documented in this encounter Care Teams Final Armature Tester Relationship Specialty Start Date End [place] [address] PCP - General 06/22/22 documented as of this encounter
--- OUTSIDE RECORDS SUMMARY | 2023-11-09 14:45 | XMS_ITS | Encounter Summary ---
Author Name Unknown Organization [facility] Address [address] [place] [address] Care Team Providers Care Auto Service Station Attendant Name Role Phone Needs Pcp, Assignment Primary Care Provider [phone] Reason for Referral * Consult/Transfer Care (Routine) - New Request Specialty Diagnoses / Procedures Referred By Dee Dee wayne Referred To Contact Diagnoses Undifferentiated connective tissue disease (HRC) Post-COVID chronic dyspnea Merlin Dacosta MD [address] [place] [address] Referral ID Status Reason Start Date Expiration Date V isits Requested Visits Authorized [id number] New Request 09/06/2023 12/05/2024 1 1 Scheduling Instructions Your clinician has recommended an appointment for with [facility]. You can quickly make your appointment online at [email or web address]. You can also call [phone] for help scheduling your appointment. We suggest you call your health insurance company about your coverage and benefits for this appointment. Question Answer Appointment Urgency? Non-Urgent OR ADMINISTRATIVE SUPPORT Reason for Visit * Reason Comments Follow-up Encounter Details Date Type Department Care Team (Latest Contact Info) Description 09/06/2023 9:00 AM SENIOR ADMINISTRATIVE SUPPORT Office Visit [facility] [address] [place] [address] Merlin Dacosta MD [facility] [place], [place] [phone] Undifferentiated connective tissue disease (HRC) (Primary Dx); Post-COVID chronic dyspnea; Vitamin D deficiency (HRC) Social History Tobacco Use Types Packs/Day Years Used Date Smoking Tobacco: Former Smokeless Tobacco: Never Alcohol Use Standard Drinks/Week Comments Not Currently 0 (1 standard drink = 0.6 oz pur e alcohol) social, maybe once a month Comments Yes Sex and Gender Information Value Date Recorded Sex Assigned at Not on file Gender Identity Not on file Sexual Orientation Not on file documented as of this encounter Patient Instructions * Patient Instructions* Merlin Dacosta MD - 09/06/2023 9:00 AM SENIOR ADMINISTRATIVE SUPPORT Longstanding history of undifferentiated connective tissue disease. Previously patient was treated with Plaquenil. Has been off Plaquenil for the last 2 years. No significant signs of active synovitis on physical exam. Lately has been dealing with mild shortness of breath after having COVID-19 more than a year ago. Recommend doing blood work today monitor disease activity. Clinically there is a low suspicion for active systemic inflammatory arthritis or connective tissuedisease. Based on the test results will decide if further rheumatologic workup as needed. Recommend evaluation by pulmonology and pulmonary function test. Return to clinic as needed. OR ADMINISTRATIVE SUPPORT documented in this encounter Progress Notes * Merlin Dacosta MD - 09/06/2023 9:00 AM CST Rheumatology Follow up Note Chief Complaint Patient presents with Follow-up HPI: Juliette Gaming is a 33 y.o. female with medical history as stated below including history of undifferentiated connective tissue disease diagnosed many years ago is coming today for follow-up. Patient has failed to follow-up in the last year. Previously patient was seen by Dr. Winn in 2013 with a clinical presentation of generalized arthralgia, positive MELISSA and elevated inflammatory markers. She responded well to systemic prednisone andwas started on Plaquenil 200 mg twice daily which later on was lowered to 200 mg daily. Was seen byDr. Jiang and later was seen by me in December of 2019 and at that time it was felt that her disease was under control and stable. The decision was made to continue the Plaquenil 200 mg daily as a maintenance therapy. In 2021 patient was and decided to stop the Plaquenil on her home. She has a complicated and had to have early at 35 weeks secondary to decreased growth and placental problems. Baby is doing well, currently a year old. Has had some growth feedingproblems. Sometimes complains of mild joint pain. Denies any red hot swollen joints. Denies any skin rash. Nosun sensitivity. Mild dry mouth on and off. Denies any oral ulcers. Patient had COVID-19 last year. Since then she has been having mild shortness of breath and wheezing. Patient Active Problem List Diagnosis Chronic rhinitis [...] 2017 gastritis Outpatient Encounter Medications as of 09/06/2023 Medication Sig Dispense Refill Ca Cit Malate-Cholecalciferol (CALCIUM CITRATE MALATE-VIT D OR) fexofenadine (PATRICIA) 180 MG tablet Take 1 Tablet (180 mg) by mouth daily as needed for Other. fluticasone (FLONASE) 50 MCG/ACT nasal solution APPLY OR INSTILL 1 SPRAY INTO BOTH NOSTRILS DAILY. 48 g 1 omeprazole (PRILOSEC) 20 MG capsule Take 1 Capsule (20 mg) by mouth two times a day. 180 Capsule 3 Vit-Fe Fumarate-FA ( OR) [DISCONTINUED] Aspirin 81 MG CAPS Take 1 Tablet by mouth daily. [DISCONTINUED] hydroxychloroquine (PLAQUENIL) 200 MG tablet Take 1 Tablet by mouth daily. MUST HAVEPLAQUENIL EYE EXAM FOR FURTHER REFILLS (Patient not taking: Reported on 06/22/2022) 90 Tablet 3 No facility-administered encounter medications on file as of 09/06/2023. No Known Allergies Social History Substance and Sexual Activity Alcohol Use Not Currently Alcohol/week: 0.0 - 1.0 standard drinks of alcohol Comment: social, maybe once a month Social History Tobacco Use Smoking Status Former Smokeless Tobacco Never EXAM General Appearance: Pleasant, alert, appropriate appearance for age. No acute distress HEENT Exam: Normocephalic, atraumatic, clear sclera. Neck Exam: Supple, no masses or nodes. Chest/Respiratory Exam: Normal chest wall and respirations. Inspiratory rhonchi. Cardiovascular Exam: Regular rate and rhythm, no [...] Longstanding history of undifferentiated connective tissue disease. Previously patient was treated with Plaquenil. Has been off Plaquenil for the last 2 years. No significant signs of active synovitis on physical exam. Lately has been dealing with mild shortness of breath after having COVID-19 more than a year ago. Clinically there is a low suspicion for any active systemic inflammatory arthritis or connective tissue disease. Recommend doing blood work today to monitor disease activity. Based on the test results will decide if further rheumatologic workup as needed. History of vitamin-D deficiency. Will check vitamin-D level. Will correct if needed. Recommend evaluation by pulmonology and pulmonary function test. Return to clinic as needed. Merlin Dacosta. Rheumatology [facility] 09/06/2023 This note consists of symbols derived from keyboarding, and voice recognition software. As a result, wrong word or '[id number]' substitutions may have occurred due to the inherent limitations of voice recognition software. There may be errors in the script that have gone undetected. Please consider this when interpreting information found in this chart. OR ADMINISTRATIVE SUPPORT documented in this encounter Plan of Treatment Upcoming Encounters Date Type Department Care Team (Late st Contact Info) Description 11/24/2023 1:30 PM CDT Appointment [facility] Pul[facility] Lab [address] [facility] [place] [address] 11/24/2023 2:30 PM CDT Office Visit [facility] Pulmonary Medicine [address] [place], [place] [address] Jose Luis Grullon MD [address] [facility] [address] [place], [place] [address] Scheduled Referrals Name Type Priority Associated Diagnoses Orde r Schedule Lung Health/Pulmonary Consult-Adult Referral Routine Undifferentiated connective tissue disease (HRC) Post-COVID chronic dyspnea Ordered: 09/06/2023 documented as of this encounter Results * (ABNORMAL) Vitamin D 25-Hydroxy, Total (09/06/2023 9:40 AM SENIOR ADMINISTRATIVE SUPPORT) Vitamin D, 25-OH, Total 21(L) 30 - 80 ng/mL 09/06/2023 3:40 PM SENIOR ADMINISTRATIVE SUPPORT [facility] Blood Venipuncture / Unknown 09/06/2023 9:40 AM SENIOR ADMINISTRATIVE SUPPORT 09/06/2023 9:40 AM SENIOR ADMINISTRATIVE SUPPORT Narrative [facility] - 09/06/2023 3:40 PM SENIOR ADMINISTRATIVE SUPPORT Expected values Deficiency: <20 ng/mL Insufficiency: 20-29 ng/mL Optimum: 30-80 ng/mL Possible toxicity: >80 ng/mL Merlin Dacosta MD LAB_1 [facility] [address] [place], [place] [address] [place] * MELISSA with Reflex to MELISSA Profile 2 (09/06/2023 9:40 AM SENIOR ADMINISTRATIVE SUPPORT) MELISSA Interpretation Negative Negative 2023 10:55 AM SENIOR ADMINISTRATIVE SUPPORT [facility] Blood Venipuncture / Unknown 09/06/2023 9:40 AM SENIOR ADMINISTRATIVE SUPPORT 09/06/2023 9:40 AM SENIOR ADMINISTRATIVE SUPPORT Merlin Dacosta MD LAB_1 [facility] [address] [place], [place] [id number] [place] [address] * (ABNORMAL) ESR (09/06/2023 9:40 AM SENIOR ADMINISTRATIVE SUPPORT) Sedimentation Rate 36(H) 0 - 20 mm/hr 09/06/2023 10:22 AM [facility] Blood Venipuncture / Unknown 09/06/2023 9:40 AM SENIOR ADMINISTRATIVE SUPPORT 09/06/2023 9:40 AM SENIOR ADMINISTRATIVE SUPPORT Merlin Dacosta MD LAB_1 Performing Organization Address [facility] de Phone Number [facility] [address] [place] [address] * (ABNORMAL) C-Reactive Protein (09/06/2023 9:40 AM SENIOR ADMINISTRATIVE SUPPORT) C-Reactive Protein 1.1(H) 0.0 - 0.5 mg/dL 09/06/2023 11:10 AM [facility] Blood Venipuncture / Unknown 09/06/2023 9:40 AM SENIOR ADMINISTRATIVE SUPPORT 09/06/2023 9:40 AM SENIOR ADMINISTRATIVE SUPPORT Merlin Dacosta MD LAB_1 Performing Organization Address [facility] de Phone Number [facility] [address] [place] [address], [place] * (ABNORMAL) CBC -No Diff (09/06/2023 9:40 AM SENIOR ADMINISTRATIVE SUPPORT) WBC 6.3 3.5 - 10.5 x10(9)/L 09/06/2023 9:44 AM [facility] RBC 4.71 3.90 - 5.03 x10(12)/L 09/06/2023 9:44 AM [facility] Hemoglobin 11.6(L) 12.0 - 15.5 g/dL 09/06/2023 9:44 AM [facility] HCT 37.0 34.9 - 44.5 % 09/06/2023 9:44 AM [facility] MCV 78.6(L) 80.0 - 100.0 fL 09/06/2023 9:44 AM [facility] MCH 24.6(L) 27.6 - 33.3 pg 09/06/2023 9:44 AM [facility] MCHC 31.4(L) 31.5 - 35.2 g/dL 09/06/2023 9:44 AM [facility] RDW 13.6 11.9 - 15.5 % 09/06/2023 9:44 AM [facility] Platelets 291 150 - 450 x10(9)/L 09/06/2023 9:44 AM [facility] Automated NRBC 0 <=0 /100 WBC 09/06/2023 9:44 AM [facility] Blood Venipuncture / Unknown 09/06/2023 9:40 AM SENIOR ADMINISTRATIVE SUPPORT 09/06/2023 9:40 AM [facility] Merlin Dacosta MD LAB[facility]1 [facility] [address] [place] [address] * (ABNORMAL) Comprehensive Metabolic Panel (09/06/2023 9:40 AM [facility]) Sodium 136 136 - 145 mmol/L 09/06/2023 11:10 AM [facility] Potassium 4.0 3.5 - 5.1 mmol/L 09/06/2023 11:10 AM [facility] Chloride 104 98 - 109 mmol/L 09/06/2023 11:10 AM [facility] CO2 24 20 - 29 mmol/L 09/06/2023 11:10 AM [facility] Anion Gap 8 7 - 16 mmol/L 09/06/2023 11:10 AM [facility] Calcium 10.1 8.4 - 10.4 mg/dL 09/06/2023 11:10 AM [facility] BUN 11 7 - 26 mg/dL 09/06/2023 11:10 AM [facility] Creatinine 0.58 0.55 - 1.02 mg/dL 09/06/2023 11:10 AM [facility] Alkaline Phosphatase 105 40 - 150 U/L 09/06/2023 11:10 AM [facility] AST (SGOT) 15 10 - 40 U/L 09/06/2023 11:10 AM [facility] ALT (SGPT) 17 <=55 U/L 09/06/2023 11:10 AM [facility] Bilirubin, Total 0.2 0.2 - 1.2 mg/dL 09/06/2023 11:10 AM [facility] Protein, Total 8.3 6.4 - 8.3 g/dL 09/06/2023 11:10 AM [facility] Albumin 4.0 3.5 - 5.0 g/dL 09/06/2023 11:10 AM [facility] Glucose 108(H) 70 - 100 mg/dL 09/06/2023 11:10 AM [facility] Comment:The given reference range is for the fasting state. Non-fasting reference range for glucose is 70 - 180 mg/dL. GFR, Estimated >60 >60 mL/min/1.7 3m2 09/06/2023 11:10 AM [facility] Hours Fasting 0.0 8 - 12 Hours 09/06/2023 11:10 AM [facility] Comment:Patient has indicate d a non-fasting status. Blood Venipuncture / Unknown 09/06/2023 9:40 AM SENIOR ADMINISTRATIVE SUPPORT 09/06/2023 9:40 AM [facility] Merlin Dacosta MD [facility]1 [facility] [address] [place] [address] documented in this encounter Visit Diagnoses Diagnosis Undifferentiated connective tissue disease (HRC)- Primary Unspecified diffuse connective tissue disease Post-COVID chronic dyspnea Vitamin D deficiency (HRC) Unspecified vitamin D deficiency documented in this encounter Care Teams Auto Service Station Attendant Relationship Specialty Start Date End Date Needs P[place], [place] [address] PCP - General 06/22/22 documented as of this encounter
--- OUTSIDE RECORDS SUMMARY | 2023-11-09 14:45 | XMS_ITS | Encounter Summary ---
Author Name Unknown Organization [facility] Address [address] [place] [address] Care Team Providers Care Magazine Filler Name Role Phone Needs Pcp, Assignment Primary Care Provider [phone] Reason for Referral * Procedure/Equipment (Routine) - Incomplete Specialty Diagnoses / Procedures Referred By Dee Dee wayne Referred To Contact Diagnoses Post-COVID chronic dyspnea Procedures XR Chest 2 Views Jose Luis Grullon MD [address] [facility] [address] [place] [address] Referral ID Status Reason Start Date Expiration Date V isits Requested Visits Authorized [id number] Incomplete 11/08/2023 02/06/2025 1 1 IT REPORTER Reason for Visit * Reason Comments ORDERS Encounter Details Date Type Department Care Team (Late st Contact Info) Description 09/15/2023 Telephone [facility]ty [facility] 3931 Pulmonary Medicine [address] [place], [place] [phone] Nurse, Pulmonary An ORDERS Social History Tobacco Use Types Packs/Day Years [...] as of this encounter Nursing Notes * Rambo Mahan RN - 09/15/2023 2:15 PM CST CXR orders placed per protocol IT REPORTER * Valerie Kong - 09/15/2023 1:55 PM CST Patient is scheduled for a pulmonary consult with Mitchel regardingUndifferentiated connective tissue disease (HRC) Post-COVID chronic dyspnea PFT pt will have CXR done prior to appt. and 11/24/23 will need chest xray prior. Please place the order. IT REPORTER documented in this encounter Plan of Treatment Upcoming Encounters Date Type Department Care Team (Late st Contact Info) Description 11/24/2023 1:30 PM CDT Appointment [facility] [address] Pul[address] [place] [phone] 11/24/2023 2:30 PM CDT Office Visit [facility] [address] [place] [phone] [place] [address] [place] [address] [address] [place] [address] Scheduled Orders Name Type Priority Associated Diagnoses Orde r Schedule XR Chest 2 Views Imaging New Routine Post-COVID chronic dyspnea Expected: 11/08/2023 (Approximate), Expires: 11/07/2024 documented as of this encounter Visit Diagnoses Diagnosis Post-COVID chronic dyspnea- Primary documented in this encounter Care Teams Magazine Filler Relationship Specialty Start Date End Date Needs Pcp, [place] [address] PCP - General 06/22/22 documented as of this encounter
--- OUTSIDE RECORDS SUMMARY | 2023-11-09 14:45 | XMS_ITS | Encounter Summary ---
Author Name Unknown Organization [facility] Address [address] [place] [address] Care Team Providers Care Building Construction Professor Name Role Phone Needs Pcp, Assignment Primary Care Provider Encounter Details Date Type Department Care Team (Latest Contact Info) Description 09/06/2023 9:35 AM HUMIDIFIER OPERATOR Lab Visit [facility] [address] [place], [place] [phone] Undifferentiated connective tissue disease (HRC) Social History Tobacco Use Types Packs/Day [...] Appointment [facility] 39[address] Pulmonary Lab [address] [place] [address] 11/24/2023 2:30 PM CDT Office Visit [facility] 39[address] Pulmonary Medicine [address] [place] [address] [place] [address] [place] [address] [address] [place] [address] documented as of this encounter Procedures Procedure Name Priority Date/Time Associated Diagnosis Comments MELISSA WITH REFLEX TO MELISSA PROFILE 2 Routine 09/06/2023 9:40 AM HUMIDIFIER OPERATOR Undifferentiated connective tissue disease (HRC) VITAMIN D 25-HYDROXY, TOTAL Routine 09/06/2023 9:40 AM HUMIDIFIER OPERATOR Undifferentiated connective tissue disease (HRC) COMPREHENSIVE METABOLIC PANEL Routine 09/06/2023 9:40 AM HUMIDIFIER OPERATOR Undifferentiated connective tissue disease (HRC) COMPLETE BLOOD COUNT-NO DIFF Routine 09/06/2023 9:40 AM HUMIDIFIER OPERATOR Undifferentiated connective tissue disease (HRC) C-REACTIVE PROTEIN Routine 09/06/2023 9: 40 AM HUMIDIFIER OPERATOR Undifferentiated connective tissue disease (HRC) SEDIMENTATION RATE (ESR) Routine 09/06/2023 9:40 AM HUMIDIFIER OPERATOR Undifferentiated connective tissue disease (HRC) documented in this encounter Results * (ABNORMAL) Vitamin D 25-Hydroxy, Total (09/06/2023 9:40 AM HUMIDIFIER OPERATOR) Vitamin D, 25-OH, Total 21(L) 30 - 80 ng/mL 09/06/2023 3:40 PM HUMIDIFIER OPERATOR [facility] Blood Venipuncture / Unknown 09/06/2023 9:40 AM HUMIDIFIER OPERATOR 09/06/2023 9:40 AM HUMIDIFIER OPERATOR Narrative [facility] - 09/06/2023 3:40 PM HUMIDIFIER OPERATOR Expected values Deficiency: <20 ng/mL Insufficiency: 20-29 ng/mL Optimum: 30-80 ng/mL Possible toxicity: >80 ng/mL Merlin Dacosta MD LAB_1 [facility] [address] [place] [address], [facility] * MELISSA with Reflex to MELISSA Profile 2 (09/06/2023 9:40 AM HUMIDIFIER OPERATOR) MELISSA Interpretation Negative Negative 2023 10:55 AM HUMIDIFIER OPERATOR [facility] Blood Venipuncture / Unknown 09/06/2023 9:40 AM HUMIDIFIER OPERATOR 09/06/2023 9:40 AM HUMIDIFIER OPERATOR Merlin Dacosta MD LAB_1 Performing Organization Address City/[facility]/ZIP Co de Phone Number [facility] [address] * (ABNORMAL) ESR (09/06/2023 9:40 AM HUMIDIFIER OPERATOR) Pathologist [facility] Sedimentation Rate 36(H) 0 - 20 mm/hr 09/06/2023 10:22 AM [facility] Blood Venipuncture / Unknown 09/06/2023 9:40 AM HUMIDIFIER OPERATOR 09/06/2023 9:40 AM HUMIDIFIER OPERATOR Merlin Dacosta MD LAB_1 Performing Organization Address [facility] Phone Number [facility] [address] * (ABNORMAL) C-Reactive Protein (09/06/2023 9:40 AM HUMIDIFIER OPERATOR) Pathologist [facility] C-Reactive Protein 1.1(H) 0.0 - 0.5 mg/dL 09/06/2023 11:10 AM [facility] Blood Venipuncture / Unknown 09/06/2023 9:40 AM HUMIDIFIER OPERATOR 09/06/2023 9:40 AM HUMIDIFIER OPERATOR Merlin Dacosta MD LAB_1 Performing Organization Address [facility] Co de Phone Number [facility] [address] * (ABNORMAL) CBC -No Diff (09/06/2023 9:40 AM HUMIDIFIER OPERATOR) Pathologist [facility] WBC 6.3 3.5 - 10.5 x10(9)/L 09/06/2023 9:44 AM [facility] RBC 4.71 3.90 - 5.03 x10(12)/L 09/06/2023 9:44 AM [facility] Hemoglobin 11.6(L) 12.0 - 15.5 g/dL 09/06/2023 9:44 AM [facility] HCT 37.0 34.9 - 44.5 % 09/06/2023 9:44 AM [facility] MCV 78.6(L) 80.0 - 100.0 fL 09/06/2023 9:44 AM [facility] MCH 24.6(L) 27.6 - 33.3 pg 09/06/2023 9:44 AM [facility] MCHC 31.4(L) 31.5 - 35.2 g/dL 09/06/2023 9:44 AM [facility] RDW 13.6 11.9 - 15.5 % 09/06/2023 9:44 AM [facility] Platelets 291 150 - 450 x10(9)/L 09/06/2023 9:44 AM [facility] Automated NRBC 0 <=0 /100 WBC 09/06/2023 9:44 AM [facility] Blood Venipuncture / Unknown 09/06/2023 9:40 AM HUMIDIFIER OPERATOR 09/06/2023 9:40 AM [facility] Merlin Dacosta MD LAB_1 [facility] [address] [place] [address], [facility] * (ABNORMAL) Comprehensive Metabolic Panel (09/06/2023 9:40 AM [facility]) Sodium 136 136 - 145 mmol/L 09/06/2023 11:10 AM [facility] Potassium 4.0 3.5 - 5.1 mmol/L 09/06/2023 11:10 AM [facility] Chloride 104 98 - 109 mmol/L 09/06/2023 11:10 AM [facility] CO2 24 20 - 29 mmol/L 09/06/2023 11:10 AM [facility] Anion Gap 8 7 - 16 mmol/L 09/06/2023 11:10 AM [facility] Calcium 10.1 8.4 - 10.4 mg/dL 09/06/2023 11:10 AM [facility] BUN 11 7 - 26 mg/dL 09/06/2023 11:10 AM [facility] Creatinine 0.58 0.55 - 1.02 mg/dL 09/06/2023 11:10 AM [facility] Alkaline Phosphatase 105 40 - 150 U/L 09/06/2023 11:10 AM [facility] AST (SGOT) 15 10 - 40 U/L 09/06/2023 11:10 AM [facility] ALT (SGPT) 17 <=55 U/L 09/06/2023 11:10 AM [facility] Bilirubin, Total 0.2 0.2 - 1.2 mg/dL 09/06/2023 11:10 AM [facility] Protein, Total 8.3 6.4 - 8.3 g/dL 09/06/2023 11:10 AM [facility] Albumin 4.0 3.5 - 5.0 g/dL 09/06/2023 11:10 AM [facility] Glucose 108(H) 70 - 100 mg/dL 09/06/2023 11:10 AM [facility] Comment:The given reference range is for the fasting state. Non-fasting reference range for glucose is 70 - 180 mg/dL. GFR, Estimated >60 >60 mL/min/1.7 3m2 09/06/2023 11:10 AM [facility] Hours Fasting 0.0 8 - 12 Hours 09/06/2023 11:10 AM [facility] Comment:Patient has indicate d a non-fasting status. Blood Venipuncture / Unknown 09/06/2023 9:40 AM HUMIDIFIER OPERATOR 09/06/2023 9:40 AM [facility] Merlin Dacosta MD LAB_1 [facility] [address] [place] [address] documented in this encounter Visit Diagnoses Diagnosis Undifferentiated connective tissue disease (HRC) Unspecified diffuse connective tissue disease documented in this encounter Care Teams Building Construction Professor Relationship Specialty Start Date End Date Needs Pcp, [place] [address] PCP - General 06/22/22 documented as of this encounter
--- OUTSIDE RECORDS SUMMARY | 2023-11-09 14:45 | XMS_ITS | Clinical Summary ---
Author Name Unknown Organization [facility] Address [address] [place] [address] Care Team Providers Care Space Control Agent Name Role Phone Needs Pcp, Assignment Primary Care Provider [phone] Source Comments You are receiving this document as you are listed as the primary care provider,follow-up provider, or the patient has been referred to you for consultation.This is in compliance with the Medicare and[facility] EHR Incentive Program,which states Providers who transition their patient to another setting of careor provider of care or refers their patient to another provider of care shouldprovide summary care record for each transition of care or referral. [facility] Allergies No known active allergies Medications Medication Sig Dispensed Refills Start Date End Date Status fexofenadine (PATRICIA) 180 MG tablet Take 1 Tablet (180 mg) by mouth daily as needed for Other. Active fluticasone (FLONASE) 50 MCG/ACT nasal solution APPLY OR INSTILL 1 SPRAY INTO BOTH NOSTRILS DAILY. 48 g 1 03/22/2017 Active Vit-Fe Fumarate-FA ( OR) Active Ca Cit Malate-Cholecalcife rol (CALCIUM CITRATE MALATE-VIT D OR) Active omeprazole (PRILOSEC) 20 MG capsule Take 1 Capsule (20 mg) by mouth two times a day. 180 Capsule 3 08/10/2022 Active Active Problems Problem Noted Date Diagnosed Date High risk medication use 05/26/2018 Cervical cancer screening 04/07/2017 Overview: 2013 NILM 2017 ASCUS, HPV negative 26 y.o. Plan: annual Pap d/t Plaquenil rx Undifferentiated connective tissue disease 05/25 Abnormal TSH 12/14/2013 Familial hyperlipidemia 12/14/2013 Insomnia 02/18/2011 Contraceptive surveillance 07/29/2010 Chronic rhinitis 12/23/2004 Cough 12/23/2004 Comments Yes Resolved Problems Problem Noted Date Diagnosed Date Resolved Date Major depressive disorder, s kelly episode, moderate 02/07/2010 10/08/2011 Hypercholesterolemia 014 Encounters Date Type Department Care Team Description 09/15/2023 Telephone Specialty Center 3931 Pulmonary Medicine [address] [place] [address] Nurse, Pulmonary An ORDERS 09/06/2023 9:35 AM WASTEWATER ENGINEER Lab Visit [facility] [address] [place], [place] [address] Undifferentiated connective tissue disease (HRC) 09/06/2023 9:00 AM WASTEWATER ENGINEER Office Visit [facility] [address] [place], [place] [id number] Merlin Dacosta MD Undifferentiated connective tissue disease (HRC) (Primary Dx); Post-COVID chronic dyspnea; Vitamin D deficiency (HRC) from Last 3 Months Immunizations Name Administration Dates Next Due 4vHPV (Gardasil) 11/18/2007,07/13/2007, 7 DTaP 02/23/1997, 3,01/10/1992,1991,1991 Flu Vac (3+ yrs) 05/23/2008 HepA Adult (19+ yrs) 12/14/2013 HepB, Unspecified Formulation 11/19/1995, 993,07/02/1992 Influenza IIV4 (Quadrivalent ) 0.5mL (12801) 05/26/2018,04/19/2017,04/02/2015,2013,05/26/2013 Influenza Vaccine (3+years) ([facility]) 04/22/2009 Influenza, Unspecified Formulation 05/03/2011 MCV4 (Menactra) 05/05/2007 MMR 03/12/2004,10/21/1992 OPV, Trivalent (Orimune or tOPV) 997,02/12/1993,1991,1991 Pfizer Monovalent 12+ Purple Top 09/10/2020,08/02 Td 03/12/2004 Tdap 10/08/2011 Varicella 05/16/2009,11/19/1995 Family History Medical History Relation Name Comments Anxiety Father Other Father Possible lactos e intolerance Hyperlipidemia Mother Coronary Artery Disease Maternal Grandfather NM in his 40s Other Maternal Grandmother arthrit is Alzheimer's Paternal Grandfather Asthma Paternal Grandfather Coronary Artery Disease Paternal Grandfather Glaucoma Paternal Grandmother Cancer, Breast Negative Family History Cancer, Colon Negative Family History Cancer, Ovary Negative Family History Macular Degeneration Negative Family History Retinal Detachment Negative Family History Relation Name Status Comments Father Alive Mother Alive Brother Alive Maternal Grandfather (Age 45) NM Maternal Grandmother (Age ? age) pancreatic ca Paternal Grandfather Alive Paternal Grandmother Alive Social History Tobacco Use Types Packs/Day Years Used Date Smoking Tobacco: Former Smokeless Tobacco: Never Tobacco Cessation:Counseling Given: Not Answered Alcohol Use Standard Drinks/Week Comments Not Currently 0 (1 standard drink = 0.6 oz pur e alcohol) social, maybe once a month Comments Yes Sex and Gender Information Value Date Recorded Sex Assigned at Not on file Gender Identity Not on file Sexual Orientation Not on file Last Filed Vital Signs Vital Sign Reading Time Taken Comments Blood Pressure 122/47 05/26/2018 8:32 AM CDT Pulse 90 05/26/2018 8:32 AM CDT Temperature 36.9 ??C (98.5 ??F) 05/03/2018 8:12 AM CD T Respiratory Rate 16 04/28/2017 8:46 AM CDT Oxygen Saturation 100% 07/29/2017 3:05 PM WASTEWATER ENGINEER Inhaled Oxygen Concentration - - Weight 90.5 kg (199 lb 9.6 oz) 08/10/2022 8:36 A M WASTEWATER ENGINEER Height 154.9 cm (5' 1) 08/10/2022 8:36 AM WASTEWATER ENGINEER Body Mass Index 37.71 08/10/2022 8:36 AM WASTEWATER ENGINEER Plan of Treatment Upcoming Encounters Date Type Department Care Team (Late st Contact Info) Description 11/24/2023 1:30 PM CDT Appointment Specialty Center 3931 Pulmonary Lab [address] [place] [address] 11/24/2023 2:30 PM CDT Office Visit Specialty Center 3931 Pulmonary Medicine [address] [place] [address] Jose Luis Grullon MD [address] [facility] [address] [place] [address] Health Maintenance Due Date Last Done Comments HIV Screening (Preventive Services) 2007 Cervical Cancer Screening 03/26/2018 03/26/2017, Adult Preventive Visit 03/26/2019 7, 05/26/2013, 12/16/2011, Additional history exists COVID-19 Vaccine ( season) 2023 06/30/2021, 09/10/2020, 08/20/2020 DTaP/Tdap/Td (8 - Tdap) 07/23/2032 07/23/20 22, 10/08/2011, 03/12/2004, Additional history exists Zoster/Shingles (1 of 2) 2041 HepB Completed 11/19/1995, 01/30, 07/02/1992 IPV (Polio) Completed 02/23/1997, 01/30, 1991, Additional history exists MCV4 Aged Out 05/05/2007 No longer eligi ble based on patient's age to complete this topic HepA Completed 12/14/2013, 11/21/2012 Hep C Screening (Preventive Services) Completed 02/23/2014 HPV Vaccine Completed 10/20/2021, 10/31, 07/13/2007, Additional history exists Influenza Completed 05/28/2023, 05/03, 06/30/2021, Additional history exists Hib Aged Out No longer eligi ble based on patient's age to complete this topic Pneumococcal Aged Out No longer eligi ble based on patient's age to complete this topic Procedures Procedure Name Priority Date/Time Associated Diagnosis Comments VITAMIN D 25-HYDROXY, TOTAL Routine 09/06/2023 9:40 AM WASTEWATER ENGINEER Undifferentiated connective tissue disease (HRC) MELISSA WITH REFLEX TO MELISSA PROFILE 2 Routine 09/06/2023 9:40 AM WASTEWATER ENGINEER Undifferentiated connective tissue disease (HRC) SEDIMENTATION RATE (ESR) Routine 09/06/2023 9:40 AM WASTEWATER ENGINEER Undifferentiated connective tissue disease (HRC) C-REACTIVE PROTEIN Routine 09/06/2023 9: 40 AM WASTEWATER ENGINEER Undifferentiated connective tissue disease (HRC) COMPLETE BLOOD COUNT-NO DIFF Routine 09/06/2023 9:40 AM WASTEWATER ENGINEER Undifferentiated connective tissue disease (HRC) COMPREHENSIVE METABOLIC PANEL Routine 09/06/2023 9:40 AM WASTEWATER ENGINEER Undifferentiated connective tissue disease (HRC) PAP TEST, ROUTINE Routine 03/26/2017 3:5 8 PM CDT Preventative health care HEPATITIS C ANTIBODY, WITH REFLEX Routine 02/23/2014 1:40 PM CDT Pain in joint, multiple sites from Last 3 Months or Most Recently Relevant to Health Maintenance Results * MELISSA with Reflex to MELISSA Profile 2 (09/06/2023 9:40 AM WASTEWATER ENGINEER) MELISSA Interpretation Negative Negative 2023 10:55 AM WASTEWATER ENGINEER [facility] Blood Venipuncture / Unknown 09/06/2023 9:40 AM WASTEWATER ENGINEER 09/06/2023 9:40 AM WASTEWATER ENGINEER Merlin Dacosta MD LAB_1 [facility] [address] [place], [place] [address] * (ABNORMAL) Vitamin D 25-Hydroxy, Total (09/06/2023 9:40 AM WASTEWATER ENGINEER) Vitamin D, 25-OH, Total 21(L) 30 - 80 ng/mL 09/06/2023 3:40 PM WASTEWATER ENGINEER [facility] Blood Venipuncture / Unknown 09/06/2023 9:40 AM WASTEWATER ENGINEER 09/06/2023 9:40 AM [facility] Narrative [facility] - 09/06/2023 3:40 PM [facility] Expected values Deficiency: <20 ng/mL Insufficiency: 20-29 ng/mL Optimum: 30-80 ng/mL Possible toxicity: >80 ng/mL Merlin Dacosta MD LAB_1 [facility] [address] * (ABNORMAL) Comprehensive Metabolic Panel (09/06/2023 9:40 AM [facility]) Sodium 136 136 - 145 mmol/L 09/06/2023 11:10 AM [facility] Potassium 4.0 3.5 - 5.1 mmol/L 09/06/2023 11:10 AM [facility] Chloride 104 98 - 109 mmol/L 09/06/2023 11:10 AM [facility] CO2 24 20 - 29 mmol/L 09/06/2023 11:10 AM [facility] Anion Gap 8 7 - 16 mmol/L 09/06/2023 11:10 AM [facility] Calcium 10.1 8.4 - 10.4 mg/dL 09/06/2023 11:10 AM [facility] BUN 11 7 - 26 mg/dL 09/06/2023 11:10 AM [facility] Creatinine 0.58 0.55 - 1.02 mg/dL 09/06/2023 11:10 AM [facility] Alkaline Phosphatase 105 40 - 150 U/L 09/06/2023 11:10 AM [facility] AST (SGOT) 15 10 - 40 U/L 09/06/2023 11:10 AM [facility] ALT (SGPT) 17 <=55 U/L 09/06/2023 11:10 AM [facility] Bilirubin, Total 0.2 0.2 - 1.2 mg/dL 09/06/2023 11:10 AM [facility] Protein, Total 8.3 6.4 - 8.3 g/dL 09/06/2023 11:10 AM [facility] Albumin 4.0 3.5 - 5.0 g/dL 09/06/2023 11:10 AM [facility] Glucose 108(H) 70 - 100 mg/dL 09/06/2023 11:10 AM [facility] Comment:The given reference range is for the fasting state. Non-fasting reference range for glucose is 70 - 180 mg/dL. GFR, Estimated >60 >60 mL/min/1.7 3m2 09/06/2023 11:10 AM [facility] Hours Fasting 0.0 8 - 12 Hours 09/06/2023 11:10 AM [facility] Comment:Patient has indicate d a non-fasting status. Blood Venipuncture / Unknown 09/06/2023 9:40 AM WASTEWATER ENGINEER 09/06/2023 9:40 AM [facility] Merlin Dacosta MD LAB_1 Performing Organization Address City/State/[facility] Co de Phone Number [facility] [address] [place] [address] * (ABNORMAL) CBC -No Diff (09/06/2023 9:40 AM [facility]) WBC 6.3 3.5 - 10.5 x10(9)/L 09/06/2023 9:44 AM [facility] RBC 4.71 3.90 - 5.03 x10(12)/L 09/06/2023 9:44 AM [facility] Hemoglobin 11.6(L) 12.0 - 15.5 g/dL 09/06/2023 9:44 AM [facility] HCT 37.0 34.9 - 44.5 % 09/06/2023 9:44 AM [facility] MCV 78.6(L) 80.0 - 100.0 fL 09/06/2023 9:44 AM [facility] MCH 24.6(L) 27.6 - 33.3 pg 09/06/2023 9:44 AM [facility] MCHC 31.4(L) 31.5 - 35.2 g/dL 09/06/2023 9:44 AM [facility] RDW 13.6 11.9 - 15.5 % 09/06/2023 9:44 AM [facility] Platelets 291 150 - 450 x10(9)/L 09/06/2023 9:44 AM [facility] Automated NRBC 0 <=0 /100 WBC 09/06/2023 9:44 AM [facility] Blood Venipuncture / Unknown 09/06/2023 9:40 AM WASTEWATER ENGINEER 09/06/2023 9:40 AM WASTEWATER ENGINEER Merlin Dacosta MD LAB_1 Performing Organization Address [facility] Co de Phone Number [facility] [id number] [place] [address] * (ABNORMAL) C-Reactive Protein (09/06/2023 9:40 AM WASTEWATER ENGINEER) C-Reactive Protein 1.1(H) 0.0 - 0.5 mg/dL 09/06/2023 11:10 AM [facility] Blood Venipuncture / Unknown 09/06/2023 9:40 AM WASTEWATER ENGINEER 09/06/2023 9:40 AM WASTEWATER ENGINEER Merlin Dacosta MD LAB_1 Performing Organization Address [facility] Phone Number [address] * (ABNORMAL) ESR (09/06/2023 9:40 AM WASTEWATER ENGINEER) Sedimentation Rate 36(H) 0 - 20 mm/hr 09/06/2023 10:22 AM [facility] Blood Venipuncture / Unknown 09/06/2023 9:40 AM WASTEWATER ENGINEER 09/06/2023 9:40 AM WASTEWATER ENGINEER Merlin Daocsta MD LAB_1 Performing Organization Address [facility] de Phone Number [address] * Pap Test, Routine (03/26/2017 3:58 PM CDT) Cytology, Pap (NOTE) [facility] Cytology Report Patient Name: JULIETTE GAMING Taken: 03/26/2017 Received: 03/29/2017 Reported: 04/07/2017 Physician(s): CHAYA BAUTISTA ?Source of Specimen Pap Test, Routine Cervical/Endocer vical: ?Specimen Adequacy ?Satisfactory for evaluation. ??Endocervical component present. ? Final Cytologic Interpretation/R esult EPITHELIAL CELL ABNORMALITIES Atypical squamous cells, undetermined significance (ASC-US). Human Papilloma Virus Ancillary Testing Specimen sent for HPV testing as requested by provider; separate report to follow *Electronically Signed Out By* ? MD Yvette Mckee (ASCP) ? Pap Smear History Date of Last Menstrual Period: 03/15/2017 ?? Microscopic Description Microscopic examination is performed. [facility] Department of Pathology [address] [place] [address] ??[id number] [facility] [employer] 03/26/2017 3:58 PM CDT 03/29/2017 12:00 PM CDT Chaya Bautista MD LAB_1 Performing Organization Address [facility] Co de Phone Number [facility] [employer] [phone] * HEPATITIS C AB(aka ANTI-HCV) [0982] (02/23/2014 1:40 PM CDT) Anti-HCV Negative (Non Reactive) [facility] Comment:Does Not Rule Out In fection with HCV 02/23/2014 1:40 PM CDT 02/23/2014 1:53 PM CDT Narrative [facility] - 02/26/2014 12:15 PM CDT Performed at [facility], [address] [place] [address] ??[id number] Orlando Mckinley MD LAB_1 Performing Organization Address [facility] Co de Phone Number [facility] [employer] [phone] from Last 3 Months or Most Recently Relevant to Health Maintenance Care Teams Space Control Agent Relationship Specialty Start Date End Date Needs Pcp, [place]den [place], [place] [address] PCP - General 06/22/22
--- OUTSIDE RECORDS SUMMARY | 2023-11-09 14:46 | XMS_ITS | Encounter Summary ---
Author Name Unknown Organization [facility] Address [address] [place] [address] Care Team Providers Care Pmo Lead Name Role Phone Needs Pcp, Assignment Primary Care Provider [phone] Encounter Details Date Type Department Care Team (Late st Contact Info) Description 11/06/2016 Consent for Procedure/Treatme nt [facility] INFORMED CONSENT RECORD Social History Tobacco Use Types Packs/Day Years Used Date Smoking Tobacco: Former Smokeless Tobacco: Never Comments:only smoked occ Alcohol Use Standard Drinks/Week Comments [...] Appointment Specialty Center 3931 Pulmonary Lab [address] [place] [address] 11/24/2023 2:30 PM CDT Office Visit Specialty Center 3931 Pulmonary Medicine [address] [place] [address] Jose Luis Grullon MD [address] [facility] [address] [place] [address] documented as of this encounter Visit Diagnoses Not on filedocumented in this encounter Care Teams Pmo Lead Relationship Specialty Start Date End Date Needs Pcp, [place] [address] PCP - General 06/22/22 documented as of this encounter
--- OUTSIDE RECORDS SUMMARY | 2023-11-09 14:46 | XMS_ITS | Encounter Summary ---
Author Name Unknown Organization [facility] Address [address] [place] [address] Care Team Providers Care Sand Blaster Name Role Phone Needs Pcp, Assignment Primary Care Provider Encounter Details Date Type Department Care Team (Late st Contact Info) Description 07/02/2016 Refill Order Specialty Center [address] [facility] [address] [facility] [place] [address] [place] [address] [place], [place] [address] Social History Tobacco Use Types Packs/Day Years [...] Nursing Notes * Trenton West CMA - 07/02/2016 8:40 AM CST Letter sent to pt. Trenton West CMA 07/02/2016, 8:40 AM PUNCH OPERATOR documented in this encounter Plan of Treatment Upcoming Encounters Date Type Department Care Team (Late st Contact Info) Description 11/24/2023 1:30 PM CDT Appointment Specialty Center 3931 Pulmonary Lab [address] [facility] [place] [address] 11/24/2023 2:30 PM CDT Office Visit Specialty Center 3931 Pulmonary Medicine [address] [place] [address] Jose Luis Grullon MD [address] [facility] [address] [place] [address] documented as of this encounter Visit Diagnoses Diagnosis Encounter for long-term (current) use of medications- Primary Encounter for long-term (current) use of other medications documented in this encounter Care Teams Sand Blaster Relationship Specialty Start Date End [place] [address] PCP - General 06/22/22 documented as of this encounter
--- OUTSIDE RECORDS SUMMARY | 2023-11-09 14:46 | XMS_ITS | Clinical Summary ---
Author Name Unknown Organization [facility] Address [address] [place] [address] Care Team Providers Care Research Technician Name Role Phone [facility], [facility] Primary Care Provider Allergies No known active allergies Medications Medication Sig Dispensed Refills Start Date End Date Status NEW MED control pill, doesn't know name 0 Active OMEPRAZOLE PO Take 20 mg by mouth 2 times daily 0 Active aspirin 81 MG EC tablet Take 81 mg by mouth daily 0 Active Vit-Fe Fumarate-FA ( MULTIVITAMIN W/IRON) 27-0.8 MG tablet Take 1 tablet by mouth daily 0 Active calcium citrate (CITRACAL) 950 (200 Ca) MG tablet Take 1 tablet by mouth 2 times daily 0 Active ferrous sulfate (FEROSUL) 325 (65 Fe) MG tablet Take 325 mg by mouth every other day 0 Active docusate sodium (COLACE) 100 MG capsule Take 100 mg by mouth daily 0 Active Social History Tobacco Use Types Packs/Day Years Used Date Smoking Tobacco: Never Smokeless Tobacco: Never Tobacco Cessation:Counseling Given: Not Answered Alcohol Use Standard Drinks/Week Comments Not Currently 0 (1 standard drink = 0.6 oz pur e alcohol) Adolescent Education Answer Date Record ed Getting School Help Needed Not on file 05/01 Sex and Gender Information Value Date Recorded Sex Assigned at Not on file Gender Identity Not on file Sexual Orientation Not on file Last Filed Vital Signs Vital Sign Reading Time Taken Comments Blood Pressure 115/66 08/19/2022 9:51 AM MIX HOUSE OPERATOR Pulse 104 08/18/2022 3:20 PM MIX HOUSE OPERATOR Temperature 36.9 ??C (98.4 ??F) 08/19/2022 9:51 AM CS T Respiratory Rate 18 08/19/2022 9:51 AM MIX HOUSE OPERATOR Oxygen Saturation 98% 08/19/2022 9:51 AM MIX HOUSE OPERATOR Inhaled Oxygen Concentration - - Weight 87.2 kg (192 lb 3.2 oz) 07/19/2019 10:31 AM MIX HOUSE OPERATOR Height 158.8 cm (5' 2.5) 11/24/2009 11:04 AM CD T Body Mass Index 34.59 11/24/2009 11:04 AM CDT Plan of Treatment Health Maintenance Due Date Last Done Comments ADVANCE CARE PLANNING 1991 ANNUAL REVIEW OF HM ORDERS 1991 HIV SCREENING 2006 YEARLY PREVENTIVE VISIT 05/05/2008 05/05/2007, 03/12 HEPATITIS C SCREENING 2009 PAP 2012 COVID-19 Vaccine ( season) 2023 06/30/2021, 09/10/2020, 08/20/2020 INFLUENZA VACCINE (#1) 2023 , 06/30/2021, 05/26/2018, Additional history exists PHQ-2 (once per calendar year) 2023 DTAP/TDAP/TD IMMUNIZATION (8 - Td or Tdap) 07/23/2032 07/23/2022, 10/08/2011, 03/12/2004, Additional history exists HEPATITIS B IMMUNIZATION Completed 996, 02/12/1993, 07/02/1992 IPV IMMUNIZATION Completed 02/23/1997, , 1991, Additional history exists MENINGITIS IMMUNIZATION Aged Out 05/05/2007 No l onger eligible based on patient's age to complete this topic HPV IMMUNIZATION Completed 10/20/2021, , 11/18/2007, Additional history exists Pneumococcal Vaccine: Pediatrics (0 to 5 Years) and At-Risk Patients (6 to 64 Years) Aged Out No longer eligible based on patient's age to complete this topic RSV MONOCLONAL ANTIBODY Aged Out No l onger eligible based on patient's age to complete this topic Advance Directives For more information, please contact: [phone] Latest Code Status on File Code Status Date Activated Date Inactivated Comments Full Code 08/19/2022 10:53 AM 08/19/2022 2:57 PM All basic and advanced life-sustaining interventions are performed as appropriate Question Answer Comments Code status determined by: Unable to discuss and no AD/POLST on file; continue PREVIOUSLY ORDERED code status Care Teams Research Technician Relationship Specialty Start Date End Date Clinic, [facility] [address] [place] [address] PCP - General 08/12/22
--- OUTSIDE RECORDS SUMMARY | 2023-11-09 14:46 | XMS_ITS | Encounter Summary ---
Author Name Unknown Organization [facility] Address [address] [place] [address] Care Team Providers Care Scheduling Clerk Name Role Phone Needs Pcp, Assignment Primary Care Provider [phone] Encounter Details Date Type Department Care Team (Late st Contact Info) Description 09/30/2016 Refill Order Specialty Center [address] [facility] [address] [facility] [place] [address] [place] [address] [address] [place], [place] [address] Social History Tobacco Use Types Packs/Day Years [...] Nursing Notes * Trenton West CMA - 09/30/2016 7:52 AM CST Letter sent to pt. Trenton West CMA 09/30/2016, 7:52 AM PULATOR OPERATOR documented in this encounter Plan of Treatment Upcoming Encounters Date Type Department Care Team (Late st Contact Info) Description 11/24/2023 1:30 PM CDT Appointment Specialty Center 3931 Pulmonary Lab [address] [facility] [place] [address] 11/24/2023 2:30 PM CDT Office Visit Specialty Center 3931 Pulmonary Medicine [address] [place] [address] Jose Luis Grullon MD [address] [facility] [address] [place] [address] documented as of this encounter Visit Diagnoses Diagnosis Encounter for long-term (current) use of medications- Primary Encounter for long-term (current) use of other medications documented in this encounter Care Teams Scheduling Clerk Relationship Specialty Start Date [place] [address] PCP - General 06/22/22 documented as of this encounter
--- OUTSIDE RECORDS SUMMARY | 2023-11-09 14:46 | XMS_ITS | Encounter Summary ---
Author Name Unknown Organization [facility] Address [address] [place] [address] Care Team Providers Care Clinic Md Associate Name Role Phone Needs Pcp, Assignment Primary Care Provider [phone] Encounter Details Date Type Department Care Team (Late st Contact Info) Description 08/26/2014 [facility] Appointment [facility] 3931 Pulmonary Lab [address] [place], [place] [address] 11/24/2023 2:30 PM CDT Office Visit Specialty Center 3931 Pulmonary Medicine [address] [place] [address] Jose Luis Grullon MD [address] [facility] [address] [place] [address] documented as of this encounter Visit Diagnoses Not on filedocumented in this encounter Care Teams Clinic Md Associate Relationship Specialty Start Date End Date Needs Pcp, [place] [address] PCP - General 06/22/22 documented as of this encounter
--- OUTSIDE RECORDS SUMMARY | 2023-11-09 14:46 | XMS_ITS | Referral Summary ---
Author Name Unknown Organization [facility] Address [address] [place] [address] Care Team Providers Care Credit Union Manager Name Role Phone Clinic, Belinda Cruz Primary [...] Comments Blood Pressure 115/66 08/19/2022 9:51 AM CHURCH BUSINESS ADMINISTRATOR Pulse 104 08/18/2022 3:20 PM CHURCH BUSINESS ADMINISTRATOR Temperature 36.9 ??C (98.4 ??F) 08/19/2022 9:51 AM CS T Respiratory Rate 18 08/19/2022 9:51 AM CHURCH BUSINESS ADMINISTRATOR Oxygen Saturation 98% 08/19/2022 9:51 AM CHURCH BUSINESS ADMINISTRATOR Inhaled Oxygen Concentration - - Weight 87.2 kg (192 lb 3.2 oz) 07/19/2019 10:31 AM CHURCH BUSINESS ADMINISTRATOR Height 158.8 cm (5' 2.5) 11/24/2009 11:04 AM CD T Body Mass Index 34.59 11/24/2009 11:04 AM CDT Plan of Treatment Not on file Advance Directives For more information, please contact: [phone] Latest Code Status on File Code Status Date Activated Date Inactivated Comments Full Code 08/19/2022 10:53 AM 08/19/2022 2:57 PM All basic and advanced life-sustaining interventions are performed as appropriate Question Answer Comments Code status determined by: Unable to discuss and no AD/POLST on file; continue PREVIOUSLY ORDERED code status Care Teams Credit Union Manager Relationship Specialty Start Date End Date [facility], Belinda [place] [address] [place] [address] PCP - General 08/12/22
--- OUTSIDE RECORDS SUMMARY | 2023-11-09 14:46 | XMS_ITS | Encounter Summary ---
Author Name Unknown Organization [facility] Address [address] [place] [address] Care Team Providers Care Duralumin Mechanic Name Role Phone Needs Pcp, Assignment Primary Care Provider Encounter Details Date Type Department Care Team (Late st Contact Info) Description 12/16/2011 Correspondence None Inactive, Provider MED EQUIPMENT PROOF OF DELIVERY Social History Tobacco Use Types Packs/Day Years Used Date Smoking Tobacco: Never Smokeless Tobacco: Never Alcohol Use Standard Drinks/Week Comments No 0 (1 standard drink = 0.6 oz pur e alcohol) Sex and Gender Information Value Date Recorded Sex Assigned at Not on file Gender Identity Not on file Sexual Orientation Not on file documented as of this encounter Progress Notes * Inactive, Provider - 12/16/2011 12:00 AM CDT documented in this encounter Plan of Treatment Upcoming Encounters Date Type Department Care Team (Late Contact Info) Description 11/24/2023 1:30 PM CDT Appointment [facility] [address] [place] [address] 11/24/2023 2:30 PM CDT Office Visit [facility] [address] [place] [address] Jose Luis Grullon MD [address] [place] [address] documented as of this encounter Visit Diagnoses Not on filedocumented in this encounter Care Teams Duralumin Mechanic Relationship Specialty Start Date End Date Needs Pcp, [place] [address] PCP - General 06/22/22 documented as of this encounter
--- OUTSIDE RECORDS SUMMARY | 2023-11-09 14:46 | XMS_ITS | Encounter Summary ---
Author Name Unknown Organization [facility] Address [address] [place] [address] Care Team Providers Care Pipeline Construction Inspector Name Role Phone Needs Pcp, Assignment Primary Care Provider [phone] Encounter Details Date Type Department Care Team (Late st Contact Info) Description 05/28/2014 Consent for Procedure/Treatme nt [facility] Department RH [...] Appointment [facility] [facility] [address] [place] [address] 11/24/2023 2:30 PM CDT Office Visit [facility]ty [facility] Pul[facility] Medicine [address] [place] [address] Jose Luis Grullon MD [address] [facility] [address] [place] [address] documented as of this encounter Visit Diagnoses Not on filedocumented in this encounter Care Teams Pipeline Construction Inspector Relationship Specialty Start Date End Date Needs Pcp, [place] [address] PCP - General 06/22/22 documented as of this encounter
--- NOTE | 2023-11-09 15:00 | US_ITS ---
Patient: AURORA FLORIAN Facility:?[facility] RIS Patient ID:?[id number] Site Patient ID:?[id number]. Site :?1991 Study:?US-OB Pelvis OB TV / TWINS-11/09/2023 3:42:50 PM Ordering Physician:HINA MAY Final Report: INDICATION: First trimester scan, establish dates. COMPARISON: None. TECHNIQUE: Real-time brewer-scale imaging of the pelvis was performed. FINDINGS: Sonographic imaging demonstrates a twin dichorionic/diamniotic living intrauterine gestation. Twin A: The embryo demonstrates a regular cardiac rate measuring 178 beats per minute. The embryo`s crown-rump length measurement of 1.8 cm corresponds to a gestational age of 8 weeks 2 days with a sonographic due date of 06/18/2024. There is a normal-appearing yolk sac. There are no gross abnormalities noted within the embryo at this early state of development. The gestational sac has a normal appearance. There is no evidence of a perigestational hemorrhage. The amount of fluid within the sac appears appropriate for gestational age. Twin B: The embryo demonstrates a regular cardiac rate measuring 173 beats per minute. The embryo`s crown-rump length measurement of 2.0 cm corresponds to a gestational age of 8 weeks 4 days with a sonographic due date of 06/16/2024. There is a normal-appearing yolk sac. There are no gross abnormalities noted within the embryo at this early state of development. The gestational sac has a normal appearance. There is no evidence of a perigestational hemorrhage. The amount of fluid within the sac appears appropriate for gestational age. The cervix is closed. The myometrium appears normal. The ovaries are of normal size. There are no suspicious fluid collections noted in the cul-de-sac. IMPRESSION: Twin A: Gestational age calculated at 8 weeks 2 days with a sonographic due date of 06/18/2024. Twin B: Gestational age calculated at 8 weeks 4 days with a sonographic due date of 06/16/2024. Dictated by Jose Pruitt MD @ 11/11/2023 6:20:28 AM Signed by:?Jose Pruitt MD @11/11/2023 6:20:28 AM (Electronic Signature)
== END 2023-11-09 14:44 | disposition home or self-care (01) ==
LOC: US 14:43
PROVIDERS: PCP Physician Assistant Medical; Visit Provider Physician Assistant
DX: Z34.91 Encounter for supervision of normal pregnancy, unspecified, first trimester (principal); O30.041 Twin pregnancy, dichorionic/diamniotic, first trimester; Z3A.08 8 weeks gestation of pregnancy
CPT/HCPCS: 76817; 86703; 86706; 86803; 86850; 86900; 86901; 87086; 87340; 87491; 87591

== ENCOUNTER 2023-11-09 17:18 | Outpatient (CLI) | payer OTHER, SELFPAY ==
--- OUTSIDE RECORDS SUMMARY | 2023-11-09 17:20 | XMS_ITS | Encounter Summary ---
Author Name Unknown Organization [facility] Address [address] [place] [address] Care Team Providers Care Comic Writer Name Role Phone Needs Pcp, Assignment Primary Care Provider [phone] Reason for Referral * Procedure/Equipment (Routine) - Incomplete Specialty Diagnoses / Procedures Referred By Dee Dee wayne Referred To Contact Diagnoses Post-COVID chronic dyspnea Procedures XR Chest 2 Views Jose Luis Grullon MD [address] [facility] [address] [place] [address] Referral ID Status Reason Start Date Expiration Date V isits Requested Visits Authorized [id number] Incomplete 11/08/2023 02/06/2025 1 1 GER RENTAL Reason for Visit * Reason Comments ORDERS Encounter Details Date Type Department Care Team (Late st Contact Info) Description 09/15/2023 Telephone Specialty Center [facility] Pulmonary Medicine [address] [place], [place] [phone] Nurse, Pulmonary An ORDERS Social History Tobacco [...] PM CST CXR orders placed per protocol GER RENTAL * Valerie Kong - 09/15/2023 1:55 PM CST Patient is scheduled for a pulmonary consult with Mitchel regardingUndifferentiated connective tissue disease (HRC) Post-COVID chronic dyspnea PFT pt will have CXR done prior to appt. and 11/24/23 will need chest xray prior. Please place the order. GER RENTAL documented in this encounter Plan of Treatment Upcoming Encounters Date Type Department Care Team (Late st Contact Info) Description 11/24/2023 1:30 PM CDT Appointment [facility] [address] [place] [address] 11/24/2023 2:30 PM CDT Office Visit Specialty [facility] [address] Pul[facility] [address] [place] [phone] [place] [address] [place] [address] [address] [place] [address] Scheduled Orders Name Type Priority Associated Diagnoses Orde r Schedule XR Chest 2 Views Imaging New Routine Post-COVID chronic dyspnea Expected: 11/08/2023 (Approximate), Expires: 11/07/2024 documented as of this encounter Visit Diagnoses Diagnosis Post-COVID chronic dyspnea- Primary documented in this encounter Care Teams Comic Writer Relationship Specialty Start Date End Date Needs Pcp, [place] [address] PCP - General 06/22/22 documented as of this encounter
--- OUTSIDE RECORDS SUMMARY | 2023-11-09 17:20 | XMS_ITS | Encounter Summary ---
Author Name Unknown Organization [facility] Address [address] [place] [address] Care Team Providers Care Paper Control Clerk Name Role Phone Needs Pcp, Assignment Primary Care Provider Encounter Details Date Type Department Care Team (Late Contact Info) Description 09/28/2017 Refill Order [facility] [address] [place], [place] [phone] [place] [address] [address] [place], [place] [phone] Social History Tobacco Use Types Packs/Day Years [...] notified. Trenton West CMA 09/30/2017, 8:46 AM O PNEUMATIC TESTER documented in this encounter Plan of Treatment Upcoming Encounters Date Type Department Care Team (Late Contact Info) Description 11/24/2023 1:30 PM CDT Appointment [facility] Pulmonary Lab [address] [place] [address] 11/24/2023 2:30 PM CDT Office Visit Specialty Center [facility] Pulmonary Medicine [address] [place] [address] Jose Luis Grullon MD [address] [facility] [address] [place] [address] documented as of this encounter Visit Diagnoses Diagnosis Encounter for long-term (current) use of medications- Primary Encounter for long-term (current) use of other medications documented in this encounter Care Teams Paper Control Clerk Relationship Specialty Start Date [place] [address] PCP - General 06/22/22 documented as of this encounter
--- OUTSIDE RECORDS SUMMARY | 2023-11-09 17:20 | XMS_ITS | Encounter Summary ---
Author Name Unknown Organization [facility] Address [address] [place] [address] Care Team Providers Care Anesthesiology Physician Assistant Name Role Phone Needs Pcp, Assignment Primary Care Provider [phone] Encounter Details Date Type Department Care Team [...] Appointment [facility]ty [facility] [address] Pul[facility] Lab [address] [place] [address] 11/24/2023 2:30 PM CDT Office Visit Specialty Center [facility] Pulmonary Medicine [address] [place] [address] Jose Luis Grullon MD [address] [facility] [address] [place] [address] documented as of this encounter Visit Diagnoses Not on filedocumented in this encounter Care Teams Anesthesiology Physician Assistant Relationship Specialty Start Date End Date Needs Pcp, [place] [address] PCP - General 06/22/22 documented as of this encounter
--- OUTSIDE RECORDS SUMMARY | 2023-11-09 17:20 | XMS_ITS | Encounter Summary ---
Author Name Unknown Organization [facility] Address [address] [place] [address] Care Team Providers Care Supervisor [employer] Name Role Phone Needs Pcp, Assignment Primary Care Provider Encounter Details Date Type Department Care Team (Latest Contact Info) Description 09/06/2023 9:35 AM TEXTILE SLITTING MACHINE OPERATOR Lab Visit [facility] [address] [place], [place] [phone] Undifferentiated connective tissue disease (HRC) Social History [...] Appointment [facility]ty [facility] [address] Pul[facility] Lab [address] [place] [address] 11/24/2023 2:30 PM CDT Office Visit Specialty Center [facility] Pulmonary Medicine [address] [place] [address] [place] [address] [place] [address] [address] [place] [address] documented as of this encounter Procedures Procedure Name Priority Date/Time Associated Diagnosis Comments MELISSA WITH REFLEX TO MELISSA PROFILE 2 Routine 09/06/2023 9:40 AM TEXTILE SLITTING MACHINE OPERATOR Undifferentiated connective tissue disease (HRC) VITAMIN D 25-HYDROXY, TOTAL Routine 09/06/2023 9:40 AM TEXTILE SLITTING MACHINE OPERATOR Undifferentiated connective tissue disease (HRC) COMPREHENSIVE METABOLIC PANEL Routine 09/06/2023 9:40 AM TEXTILE SLITTING MACHINE OPERATOR Undifferentiated connective tissue disease (HRC) COMPLETE BLOOD COUNT-NO DIFF Routine 09/06/2023 9:40 AM TEXTILE SLITTING MACHINE OPERATOR Undifferentiated connective tissue disease (HRC) C-REACTIVE PROTEIN Routine 09/06/2023 9: 40 AM TEXTILE SLITTING MACHINE OPERATOR Undifferentiated connective tissue disease (HRC) SEDIMENTATION RATE (ESR) Routine 09/06/2023 9:40 AM TEXTILE SLITTING MACHINE OPERATOR Undifferentiated connective tissue disease (HRC) documented in this encounter Results * (ABNORMAL) Vitamin D 25-Hydroxy, Total (09/06/2023 9:40 AM TEXTILE SLITTING MACHINE OPERATOR) Vitamin D, 25-OH, Total 21(L) 30 - 80 ng/mL 09/06/2023 3:40 PM TEXTILE SLITTING MACHINE OPERATOR [facility] Blood Venipuncture / Unknown 09/06/2023 9:40 AM TEXTILE SLITTING MACHINE OPERATOR 09/06/2023 9:40 AM TEXTILE SLITTING MACHINE OPERATOR Narrative [facility] - 09/06/2023 3:40 PM TEXTILE SLITTING MACHINE OPERATOR Expected values Deficiency: <20 ng/mL Insufficiency: 20-29 ng/mL Optimum: 30-80 ng/mL Possible toxicity: >80 ng/mL Merlin Dacosta MD LAB_1 [facility] [address] [place] [address], [facility] * MELISSA with Reflex to MELISSA Profile 2 (09/06/2023 9:40 AM TEXTILE SLITTING MACHINE OPERATOR) MELISSA Interpretation Negative Negative 2023 10:55 AM TEXTILE SLITTING MACHINE OPERATOR [facility] Blood Venipuncture / Unknown 09/06/2023 9:40 AM TEXTILE SLITTING MACHINE OPERATOR 09/06/2023 9:40 AM TEXTILE SLITTING MACHINE OPERATOR Merlin Dacosta MD LAB_1 Performing Organization Address City/[facility]/ZIP Co de Phone Number [facility] [address] * (ABNORMAL) ESR (09/06/2023 9:40 AM TEXTILE SLITTING MACHINE OPERATOR) Pathologist [facility] Sedimentation Rate 36(H) 0 - 20 mm/hr 09/06/2023 10:22 AM [facility] Blood Venipuncture / Unknown 09/06/2023 9:40 AM TEXTILE SLITTING MACHINE OPERATOR 09/06/2023 9:40 AM TEXTILE SLITTING MACHINE OPERATOR Merlin Dacosta MD LAB_1 Performing Organization Address [facility] Phone Number [facility] [address] * (ABNORMAL) C-Reactive Protein (09/06/2023 9:40 AM TEXTILE SLITTING MACHINE OPERATOR) Pathologist [facility] C-Reactive Protein 1.1(H) 0.0 - 0.5 mg/dL 09/06/2023 11:10 AM [facility] Blood Venipuncture / Unknown 09/06/2023 9:40 AM TEXTILE SLITTING MACHINE OPERATOR 09/06/2023 9:40 AM TEXTILE SLITTING MACHINE OPERATOR Merlin Dacosta MD LAB_1 Performing Organization Address [facility] Co de Phone Number [facility] [address] * (ABNORMAL) CBC -No Diff (09/06/2023 9:40 AM TEXTILE SLITTING MACHINE OPERATOR) Pathologist [facility] WBC 6.3 3.5 - 10.5 x10(9)/L 09/06/2023 9:44 AM [facility] RBC 4.71 3.90 - 5.03 x10(12)/L 09/06/2023 9:44 AM [facility] Hemoglobin 11.6(L) 12.0 - 15.5 g/dL 09/06/2023 9:44 AM [facility] HCT 37.0 34.9 - 44.5 % 09/06/2023 9:44 AM [facility] MCV 78.6(L) 80.0 - 100.0 fL 09/06/2023 9:44 AM [facility] MCH 24.6(L) 27.6 - 33.3 pg 09/06/2023 9:44 AM [facility] MCHC 31.4(L) 31.5 - 35.2 g/dL 09/06/2023 9:44 AM [facility] RDW 13.6 11.9 - 15.5 % 09/06/2023 9:44 AM [facility] Platelets 291 150 - 450 x10(9)/L 09/06/2023 9:44 AM [facility] Automated NRBC 0 <=0 /100 WBC 09/06/2023 9:44 AM [facility] Blood Venipuncture / Unknown 09/06/2023 9:40 AM TEXTILE SLITTING MACHINE OPERATOR 09/06/2023 9:40 AM [facility] Merlin Dacosta MD LAB_1 [facility] [address] [place] [address], [facility] * (ABNORMAL) Comprehensive Metabolic Panel (09/06/2023 9:40 AM [facility]) Sodium 136 136 - 145 mmol/L 09/06/2023 11:10 AM [facility] Potassium 4.0 3.5 - 5.1 mmol/L 09/06/2023 11:10 AM [facility] Chloride 104 98 - 109 mmol/L 09/06/2023 11:10 AM [facility] CO2 24 20 - 29 mmol/L 09/06/2023 11:10 AM [facility] Anion Gap 8 7 - 16 mmol/L 09/06/2023 11:10 AM [facility] Calcium 10.1 8.4 - 10.4 mg/dL 09/06/2023 11:10 AM [facility] BUN 11 7 - 26 mg/dL 09/06/2023 11:10 AM [facility] Creatinine 0.58 0.55 - 1.02 mg/dL 09/06/2023 11:10 AM [facility] Alkaline Phosphatase 105 40 - 150 U/L 09/06/2023 11:10 AM [facility] AST (SGOT) 15 10 - 40 U/L 09/06/2023 11:10 AM [facility] ALT (SGPT) 17 <=55 U/L 09/06/2023 11:10 AM [facility] Bilirubin, Total 0.2 0.2 - 1.2 mg/dL 09/06/2023 11:10 AM [facility] Protein, Total 8.3 6.4 - 8.3 g/dL 09/06/2023 11:10 AM [facility] Albumin 4.0 3.5 - 5.0 g/dL 09/06/2023 11:10 AM [facility] Glucose 108(H) 70 - 100 mg/dL 09/06/2023 11:10 AM [facility] Comment:The given reference range is for the fasting state. Non-fasting reference range for glucose is 70 - 180 mg/dL. GFR, Estimated >60 >60 mL/min/1.7 3m2 09/06/2023 11:10 AM [facility] Hours Fasting 0.0 8 - 12 Hours 09/06/2023 11:10 AM [facility] Comment:Patient has indicate d a non-fasting status. Blood Venipuncture / Unknown 09/06/2023 9:40 AM TEXTILE SLITTING MACHINE OPERATOR 09/06/2023 9:40 AM [facility] Merlin Dacosta MD LAB_1 [facility] [address] [place] [address] documented in this encounter Visit Diagnoses Diagnosis Undifferentiated connective tissue disease (HRC) Unspecified diffuse connective tissue disease documented in this encounter Care Teams Supervisor [employer] Relationship Specialty Start Date End Date Needs Pcp, [place] [address] PCP - General 06/22/22 documented as of this encounter
--- OUTSIDE RECORDS SUMMARY | 2023-11-09 17:20 | XMS_ITS | Encounter Summary ---
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 You can quickly make your appointment online at [employer]schedule. You can also call [phone] for help scheduling your appointment. We suggest you call your health insurance company about your coverage and benefits for this appointment. Question Answer Appointment Urgency? Non-Urgent MAKING MACHINE TENDER Reason for Visit * Reason Comments Follow-up Encounter Details Date Type Department Care Team (Latest Contact Info) Description 09/06/2023 9:00 AM MAT MAKING MACHINE TENDER Office Visit [facility] [address] [place] [address] Merlin Dacosta MD [facility] [place], [place] [id number] Undifferentiated connective tissue disease (HRC) (Primary Dx); [...] Merlin Dacosta MD - 09/06/2023 9:00 AM MAT MAKING MACHINE TENDER Longstanding history of undifferentiated connective tissue disease. [...] function test. Return to clinic as needed. MAKING MACHINE TENDER documented in this encounter Progress Notes * [...] software. As a result, wrong word or '[id number]-g-[id number]' substitutions may have occurred due to the inherent limitations of voice recognition software. There may be errors in the script that have gone undetected. Please consider this when interpreting information found in this chart. MAKING MACHINE TENDER documented in this encounter Plan of Treatment Upcoming Encounters Date Type Department Care Team (Late st Contact Info) Description 11/24/2023 1:30 PM CDT Appointment [facility] [address] [facility] 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 Ordered: 09/06/2023 documented as of this encounter Results * (ABNORMAL) Vitamin D 25-Hydroxy, Total (09/06/2023 9:40 AM MAT MAKING MACHINE TENDER) Vitamin D, 25-OH, Total 21(L) 30 - 80 ng/mL 09/06/2023 3:40 PM MAT MAKING MACHINE TENDER [facility] Blood Venipuncture / Unknown 09/06/2023 9:40 AM MAT MAKING MACHINE TENDER 09/06/2023 9:40 AM MAT MAKING MACHINE TENDER Narrative [facility] - 09/06/2023 3:40 PM MAT MAKING MACHINE TENDER Expected values Deficiency: <20 ng/mL Insufficiency: 20-29 ng/mL Optimum: 30-80 ng/mL Possible toxicity: >80 ng/mL Merlin Dacosta MD LAB_1 [facility] [address] [place], [place] [address] * MELISSA with Reflex to MELISSA Profile 2 (09/06/2023 9:40 AM MAT MAKING MACHINE TENDER) MELISSA Interpretation Negative Negative 2023 10:55 AM MAT MAKING MACHINE TENDER [facility] Blood Venipuncture / Unknown 09/06/2023 9:40 AM MAT MAKING MACHINE TENDER 09/06/2023 9:40 AM MAT MAKING MACHINE TENDER Merlin Dacosta MD LAB_1 [facility] [address] [place], [place] [address] [place] [address] * (ABNORMAL) ESR (09/06/2023 9:40 AM MAT MAKING MACHINE TENDER) Sedimentation Rate 36(H) 0 - 20 mm/hr 09/06/2023 10:22 AM [facility] Blood Venipuncture / Unknown 09/06/2023 9:40 AM MAT MAKING MACHINE TENDER 09/06/2023 9:40 AM MAT MAKING MACHINE TENDER Merlin Dacosta MD LAB_1 Performing Organization Address [facility] de Phone Number [facility] [address] [place] [address] * (ABNORMAL) C-Reactive Protein (09/06/2023 9:40 AM MAT MAKING MACHINE TENDER) C-Reactive Protein 1.1(H) 0.0 - 0.5 mg/dL 09/06/2023 11:10 AM [facility] Blood Venipuncture / Unknown 09/06/2023 9:40 AM MAT MAKING MACHINE TENDER 09/06/2023 9:40 AM MAT MAKING MACHINE TENDER Merlin Dacosta MD LAB_1 Performing Organization Address [facility] de Phone Number [facility] [address] [place] [address], [place] * (ABNORMAL) CBC -No Diff (09/06/2023 9:40 AM MAT MAKING MACHINE TENDER) WBC 6.3 3.5 - 10.5 x10(9)/L 09/06/2023 9:44 AM [facility] RBC 4.71 3.90 - 5.03 x10(12)/L 09/06/2023 9:44 AM [facility] Hemoglobin 11.6(L) 12.0 - 15.5 g/dL 09/06/2023 9:44 AM [facility] HCT 37.0 34.9 - 44.5 % 09/06/2023 9:44 AM [facility] MCV 78.6(L) 80.0 - 100.0 fL 09/06/2023 9:44 AM [facility] MCH 24.6(L) 27.6 - 33.3 pg 09/06/2023 9:44 AM [facility] MCHC 31.4(L) 31.5 - 35.2 g/dL 09/06/2023 9:44 AM [facility] RDW 13.6 11.9 - 15.5 % 09/06/2023 9:44 AM [facility] Platelets 291 150 - 450 x10(9)/L 09/06/2023 9:44 AM [facility] Automated NRBC 0 <=0 /100 WBC 09/06/2023 9:44 AM [facility] Blood Venipuncture / Unknown 09/06/2023 9:40 AM MAT MAKING MACHINE TENDER 09/06/2023 9:40 AM [facility] Merlin Dacosta MD LAB_1 [facility] [address] [place] [address] * (ABNORMAL) Comprehensive Metabolic Panel (09/06/2023 9:40 AM [facility]) Sodium 136 136 - 145 mmol/L 09/06/2023 11:10 AM [facility] Potassium 4.0 3.5 - 5.1 mmol/L 09/06/2023 11:10 AM [facility] Chloride 104 98 - 109 mmol/L 09/06/2023 11:10 AM [facility] CO2 24 20 - 29 mmol/L 09/06/2023 11:10 AM [facility] Anion Gap 8 7 - 16 mmol/L 09/06/2023 11:10 AM [facility] Calcium 10.1 8.4 - 10.4 mg/dL 09/06/2023 11:10 AM [facility] BUN 11 7 - 26 mg/dL 09/06/2023 11:10 AM [facility] Creatinine 0.58 0.55 - 1.02 mg/dL 09/06/2023 11:10 AM [facility] Alkaline Phosphatase 105 40 - 150 U/L 09/06/2023 11:10 AM [facility] AST (SGOT) 15 10 - 40 U/L 09/06/2023 11:10 AM [facility] ALT (SGPT) 17 <=55 U/L 09/06/2023 11:10 AM [facility] Bilirubin, Total 0.2 0.2 - 1.2 mg/dL 09/06/2023 11:10 AM [facility] Protein, Total 8.3 6.4 - 8.3 g/dL 09/06/2023 11:10 AM [facility] Albumin 4.0 3.5 - 5.0 g/dL 09/06/2023 11:10 AM [facility] Glucose 108(H) 70 - 100 mg/dL 09/06/2023 11:10 AM [facility] Comment:The given reference range is for the fasting state. Non-fasting reference range for glucose is 70 - 180 mg/dL. GFR, Estimated >60 >60 mL/min/1.7 3m2 09/06/2023 11:10 AM [facility] Hours Fasting 0.0 8 - 12 Hours 09/06/2023 11:10 AM [facility] Comment:Patient has indicate d a non-fasting status. 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
--- OUTSIDE RECORDS SUMMARY | 2023-11-09 17:20 | XMS_ITS | Clinical Summary ---
Author Name Unknown Organization [facility] Address [address] [place] [address] Care Team Providers Care Poultry Boner Name Role Phone Needs Pcp, Assignment Primary Care Provider [phone] Source Comments You are receiving this document as you are listed as the primary care provider,follow-up provider, or the patient has been referred to you for consultation.This is in compliance with the Medicare and[facility] EHR Incentive Program,which states Providers who transition their patient to another setting of careor provider of care or refers their patient to another provider of care shouldprovide summary care record for each transition of care or referral. [facility] Allergies No known active allergies [...] Telephone Specialty Center 3931 Pulmonary Medicine [address] [place] [address] Nurse, Pulmonary An ORDERS 09/06/2023 9:35 AM OCCUPATIONAL THERAPY ASSIST Lab Visit [facility] [address] [place], [place] [address] Undifferentiated connective tissue disease (HRC) 09/06/2023 9:00 AM OCCUPATIONAL THERAPY ASSIST Office Visit [facility] [address] [place], [place] [phone] Merlin Dacosta MD Undifferentiated connective tissue disease (HRC) (Primary Dx); Post-COVID chronic dyspnea; Vitamin D deficiency (HRC) from Last 3 Months Immunizations Name Administration Dates Next Due 4vHPV (Gardasil) 11/18/2007,07/13/2007, 7 DTaP 02/23/1997, 3,01/10/1992,1991,1991 Flu Vac (3+ yrs) 05/23/2008 HepA Adult (19+ yrs) 12/14/2013 HepB, Unspecified Formulation 11/19/1995, 993,07/02/1992 Influenza IIV4 (Quadrivalent ) 0.5mL (93024) 05/26/2018,04/19/2017,04/02/2015,2013,05/26/2013 Influenza Vaccine (3+years) ([facility]) 04/22/2009 Influenza, Unspecified Formulation 05/03/2011 MCV4 (Menactra) 05/05/2007 MMR 03/12/2004,10/21/1992 OPV, Trivalent (Orimune or tOPV) 997,02/12/1993,1991,1991 Pfizer Monovalent 12+ Purple Top 09/10/2020,08/02 Td 03/12/2004 Tdap 10/08/2011 Varicella 05/16/2009,11/19/1995 Family History Medical History Relation Name Comments Anxiety Father Other Father Possible lactos e intolerance Hyperlipidemia Mother Coronary Artery Disease Maternal Grandfather CT in his 40s Other Maternal Grandmother arthrit is Alzheimer's Paternal Grandfather Asthma Paternal Grandfather Coronary Artery Disease Paternal Grandfather Glaucoma Paternal Grandmother Cancer, Breast Negative Family History Cancer, Colon Negative Family History Cancer, Ovary Negative Family History Macular Degeneration Negative Family History Retinal Detachment Negative Family History Relation Name Status Comments Father Alive Mother Alive Brother Alive Maternal Grandfather (Age 45) CT Maternal Grandmother (Age ? age) pancreatic ca [...] CDT Oxygen Saturation 100% 07/29/2017 3:05 PM OCCUPATIONAL THERAPY ASSIST Inhaled Oxygen Concentration - - Weight 90.5 kg (199 lb 9.6 oz) 08/10/2022 8:36 A M OCCUPATIONAL THERAPY ASSIST Height 154.9 cm (5' 1) 08/10/2022 8:36 AM OCCUPATIONAL THERAPY ASSIST Body Mass Index 37.71 08/10/2022 8:36 AM OCCUPATIONAL THERAPY ASSIST Plan of Treatment Upcoming Encounters Date Type Department Care Team (Late st Contact Info) Description 11/24/2023 1:30 PM CDT Appointment Specialty Center 3931 Pulmonary Lab [address] [place] [address] 11/24/2023 2:30 PM CDT Office Visit Specialty Center 3931 Pulmonary Medicine [address] [place] [address] Jose Luis Grullon MD [address] [facility] [address] [place] [address] Health Maintenance Due Date Last Done Comments [...] D 25-HYDROXY, TOTAL Routine 09/06/2023 9:40 AM OCCUPATIONAL THERAPY ASSIST Undifferentiated connective tissue disease (HRC) MELISSA WITH REFLEX TO MELISSA PROFILE 2 Routine 09/06/2023 9:40 AM OCCUPATIONAL THERAPY ASSIST Undifferentiated connective tissue disease (HRC) SEDIMENTATION RATE (ESR) Routine 09/06/2023 9:40 AM OCCUPATIONAL THERAPY ASSIST Undifferentiated connective tissue disease (HRC) C-REACTIVE PROTEIN Routine 09/06/2023 9: 40 AM OCCUPATIONAL THERAPY ASSIST Undifferentiated connective tissue disease (HRC) COMPLETE BLOOD COUNT-NO DIFF Routine 09/06/2023 9:40 AM OCCUPATIONAL THERAPY ASSIST Undifferentiated connective tissue disease (HRC) COMPREHENSIVE METABOLIC PANEL Routine 09/06/2023 9:40 AM OCCUPATIONAL THERAPY ASSIST Undifferentiated connective tissue disease (HRC) PAP TEST, ROUTINE Routine 03/26/2017 3:5 8 PM CDT Preventative health care HEPATITIS C ANTIBODY, WITH REFLEX Routine 02/23/2014 1:40 PM CDT Pain in joint, multiple sites from Last 3 Months or Most Recently Relevant to Health Maintenance Results * MELISSA with Reflex to MELISSA Profile 2 (09/06/2023 9:40 AM OCCUPATIONAL THERAPY ASSIST) MELISSA Interpretation Negative Negative 2023 10:55 AM OCCUPATIONAL THERAPY ASSIST [facility] Blood Venipuncture / Unknown 09/06/2023 9:40 AM OCCUPATIONAL THERAPY ASSIST 09/06/2023 9:40 AM OCCUPATIONAL THERAPY ASSIST Merlin Dacosta MD LAB_1 [facility] [address] [place], [place] [address] * (ABNORMAL) Vitamin D 25-Hydroxy, Total (09/06/2023 9:40 AM OCCUPATIONAL THERAPY ASSIST) Vitamin D, 25-OH, Total 21(L) 30 - 80 ng/mL 09/06/2023 3:40 PM OCCUPATIONAL THERAPY ASSIST [facility] Blood Venipuncture / Unknown 09/06/2023 9:40 AM OCCUPATIONAL THERAPY ASSIST 09/06/2023 9:40 AM [facility] Narrative [facility] - 09/06/2023 3:40 PM [facility] Expected values Deficiency: <20 ng/mL Insufficiency: 20-29 ng/mL Optimum: 30-80 ng/mL Possible toxicity: >80 ng/mL Merlin Dacosta MD LAB_1 [facility] [address] * (ABNORMAL) Comprehensive Metabolic Panel (09/06/2023 9:40 AM [facility]) Sodium 136 136 - 145 mmol/L 09/06/2023 11:[address] [facility] Potassium 4.0 3.5 - 5.1 mmol/L 09/06/2023 11:[address] [facility] Chloride 104 98 - 109 mmol/L 09/06/2023 11:[address] [facility] CO2 24 20 - 29 mmol/L 09/06/2023 11:[address] [facility] Anion Gap 8 7 - 16 mmol/L 09/06/2023 11:[address] [facility] Calcium 10.1 8.4 - 10.4 mg/dL 09/06/2023 11:[address] [facility] BUN 11 7 - 26 mg/dL 09/06/2023 11:[address] [facility] Creatinine 0.58 0.55 - 1.02 mg/dL 09/06/2023 11:[address] [facility] Alkaline Phosphatase 105 40 - 150 U/L 09/06/2023 11:[address] [facility] AST (SGOT) 15 10 - 40 U/L 09/06/2023 11:[address] [facility] ALT (SGPT) 17 <=55 U/L 09/06/2023 11:[address] [facility] Bilirubin, Total 0.2 0.2 - 1.2 mg/dL 09/06/2023 11:[address] [facility] Protein, Total 8.3 6.4 - 8.3 g/dL 09/06/2023 11:[address] [facility] Albumin 4.0 3.5 - 5.0 g/dL 09/06/2023 11:[address] [facility] Glucose 108(H) 70 - 100 mg/dL 09/06/2023 11:[address] [facility] Comment:The given reference range is for the fasting state. Non-fasting reference range for glucose is 70 - 180 mg/dL. GFR, Estimated >60 >60 mL/min/1.7 3m2 09/06/2023 11:[address] [facility] Hours Fasting 0.0 8 - 12 Hours 09/06/2023 11:[address] [facility] Comment:Patient has indicate d a non-fasting status. Blood Venipuncture / Unknown 09/06/2023 9:40 AM OCCUPATIONAL THERAPY ASSIST 09/06/2023 9:40 AM [facility] Merlin Dacosta MD LAB_1 Performing Organization Address City/State/[facility] Co de Phone Number [facility] [address] [place] [address] * (ABNORMAL) CBC -No Diff (09/06/2023 9:40 AM [facility]) WBC 6.3 3.5 - 10.5 x10(9)/L 09/06/2023 9:[address] [facility] RBC 4.71 3.90 - 5.03 x10(12)/L 09/06/2023 9:[address] [facility] Hemoglobin 11.6(L) 12.0 - 15.5 g/dL 09/06/2023 9:[address] [facility] HCT 37.0 34.9 - 44.5 % 09/06/2023 9:[address] [facility] MCV 78.6(L) 80.0 - 100.0 fL 09/06/2023 9:[address] [facility] MCH 24.6(L) 27.6 - 33.3 pg 09/06/2023 9:[address] [facility] MCHC 31.4(L) 31.5 - 35.2 g/dL 09/06/2023 9:[address] [facility] RDW 13.6 11.9 - 15.5 % 09/06/2023 9:[address] [facility] Platelets 291 150 - 450 x10(9)/L 09/06/2023 9:[address] [facility] Automated NRBC 0 <=0 /100 WBC 09/06/2023 9:[address] [facility] Blood Venipuncture / Unknown 09/06/2023 9:40 AM OCCUPATIONAL THERAPY ASSIST 09/06/2023 9:40 AM OCCUPATIONAL THERAPY ASSIST Merlin Dacosta MD LAB_1 Performing Organization Address [facility] Co de Phone Number [facility] [id number] [place] [address] * (ABNORMAL) C-Reactive Protein (09/06/2023 9:40 AM OCCUPATIONAL THERAPY ASSIST) C-Reactive Protein 1.1(H) 0.0 - 0.5 mg/dL 09/06/2023 11:[address] [facility] Blood Venipuncture / Unknown 09/06/2023 9:40 AM OCCUPATIONAL THERAPY ASSIST 09/06/2023 9:40 AM OCCUPATIONAL THERAPY ASSIST Merlin Dacosta MD LAB_1 Performing Organization Address [facility] Phone Number [address] * (ABNORMAL) ESR (09/06/2023 9:40 AM OCCUPATIONAL THERAPY ASSIST) Sedimentation Rate 36(H) 0 - 20 mm/hr 09/06/2023 10:[address] [facility] Blood Venipuncture / Unknown 09/06/2023 9:40 AM OCCUPATIONAL THERAPY ASSIST 09/06/2023 9:40 AM OCCUPATIONAL THERAPY ASSIST Merlin Dacosta MD LAB_1 Performing Organization Address [facility] de Phone Number [address] * Pap Test, Routine (03/26/2017 3:58 PM CDT) Cytology, Pap (NOTE) Senior Project Manager Engineering Cytology Report Patient Name: JULIETTE GAMING Taken: [...] ?? Microscopic Description Microscopic examination is performed. [facility] Department of Pathology [address] [place] [address] ??[id number] [facility] [employer] 03/26/2017 3:58 PM CDT 03/29/2017 12:00 PM CDT Chaya Bautista MD LAB_1 Performing Organization Address [facility] Co de Phone Number [facility] [employer] [phone] * HEPATITIS C AB(aka ANTI-HCV) [[id number]] (02/23/2014 1:40 PM CDT) Anti-HCV Negative (Non Reactive) [facility] Comment:Does Not Rule Out In fection with HCV 02/23/2014 1:40 PM CDT 02/23/2014 1:53 PM CDT Narrative [facility] - 02/26/2014 12:15 PM CDT Performed at [facility], [address] [place] [address] ??[id number] Orlando Mckinley MD LAB_1 Performing Organization Address [facility] Co de Phone Number [facility] [employer] [phone] from Last 3 Months or Most Recently Relevant to Health Maintenance Care Teams Poultry Boner Relationship Specialty Start Date End Date Needs Pcp, Jayden [place], [place] [address] PCP - General 06/22/22
--- OUTSIDE RECORDS SUMMARY | 2023-11-09 17:21 | XMS_ITS | Clinical Summary ---
Author Name Unknown Organization [facility] Address [address] [place] [address] Care Team Providers Care Metal Engraver Name Role Phone Clinic, [facility] Primary [...] Comments Blood Pressure 115/66 08/19/2022 9:51 AM STEAM FRAME OPERATOR Pulse 104 08/18/2022 3:20 PM STEAM FRAME OPERATOR Temperature 36.9 ??C (98.4 ??F) 08/19/2022 9:51 AM CS T Respiratory Rate 18 08/19/2022 9:51 AM STEAM FRAME OPERATOR Oxygen Saturation 98% 08/19/2022 9:51 AM STEAM FRAME OPERATOR Inhaled Oxygen Concentration - - Weight 87.2 kg (192 lb 3.2 oz) 07/19/2019 10:31 AM STEAM FRAME OPERATOR Height 158.8 cm (5' 2.5) 11/24/2009 [...] Advance Directives For more information, please contact: [phone] Latest Code Status on File Code Status Date Activated Date Inactivated Comments Full Code 08/19/2022 10:53 AM 08/19/2022 2:57 PM All basic and advanced life-sustaining interventions are performed as appropriate Question Answer Comments Code status determined by: Unable to discuss and no AD/POLST on file; continue PREVIOUSLY ORDERED code status Care Teams Metal Engraver Relationship Specialty Start Date End Date Clinic, [facility] [address] [place] [address] PCP - General 08/12/22
--- OUTSIDE RECORDS SUMMARY | 2023-11-09 17:21 | XMS_ITS | Encounter Summary ---
Author Name Unknown Organization [facility] Address [address] [place] [address] Care Team Providers Care Director Of Undergraduate Admissions Name Role Phone Needs Pcp, Assignment Primary Care Provider [phone] Encounter Details Date Type Department Care Team (Late st Contact Info) Description 08/26/2014 Emergency Room External to [facility], Provider EAR PAIN Social History [...] Appointment Specialty Center 3931 Pulmonary Lab [address] [place], [place] [address] 11/24/2023 2:30 PM CDT Office Visit Specialty Center 3931 Pulmonary Medicine [address] [place] [address] Jose Luis Grullon MD [address] [facility] [address] [place] [address] documented as of this encounter Visit Diagnoses Not on filedocumented in this encounter Care Teams Director Of Undergraduate Admissions Relationship Specialty Start Date End Date Needs Pcp, [place] [address] PCP - General 06/22/22 documented as of this encounter
--- OUTSIDE RECORDS SUMMARY | 2023-11-09 17:21 | XMS_ITS | Referral Summary ---
Author Name Unknown Organization [facility] Address [address] [place] [address] Care Team Providers Care Cooker Helper Name Role Phone Clinic, [facility] Primary [...] Comments Blood Pressure 115/66 08/19/2022 9:51 AM QUILTER FIXER Pulse 104 08/18/2022 3:20 PM QUILTER FIXER Temperature 36.9 ??C (98.4 ??F) 08/19/2022 9:51 AM CS T Respiratory Rate 18 08/19/2022 9:51 AM QUILTER FIXER Oxygen Saturation 98% 08/19/2022 9:51 AM QUILTER FIXER Inhaled Oxygen Concentration - - Weight 87.2 kg (192 lb 3.2 oz) 07/19/2019 10:31 AM QUILTER FIXER Height 158.8 cm (5' 2.5) 11/24/2009 11:04 AM CD T Body Mass Index 34.59 11/24/2009 11:04 AM CDT Plan of Treatment Not on file Advance Directives For more information, please contact: [phone] Latest Code Status on File Code Status Date Activated Date Inactivated Comments Full Code 08/19/2022 10:53 AM 08/19/2022 2:57 PM All basic and advanced life-sustaining interventions are performed as appropriate Question Answer Comments Code status determined by: Unable to discuss and no AD/POLST on file; continue PREVIOUSLY ORDERED code status Care Teams Cooker Helper Relationship Specialty Start Date End Date [facility], [facility] [address] [place] [address] PCP - General 08/12/22
--- OUTSIDE RECORDS SUMMARY | 2023-11-09 17:21 | XMS_ITS | Encounter Summary ---
Author Name Unknown Organization [facility] Address [address] [place] [address] Care Team Providers Care Chart Snatcher Name Role Phone Needs Pcp, Assignment Primary [...] Appointment Specialty [facility] [address] [place] [address] 11/24/2023 2:30 PM CDT Office Visit Specialty Center [facility] Pul[facility] Medicine [address] [place] [address] Jose Luis Grullon MD [address] [place] [address] documented as of this encounter Visit Diagnoses Not on filedocumented in this encounter Care Teams Chart Snatcher Relationship Specialty Start Date End Date Needs Pcp, [place] [address] PCP - General 06/22/22 documented as of this encounter
--- OUTSIDE RECORDS SUMMARY | 2023-11-09 17:21 | XMS_ITS | Encounter Summary ---
Author Name Unknown Organization [facility] Address [address] [place] [address] Care Team Providers Care Director Of Brand Marketing Name Role Phone Needs Pcp, Assignment Primary Care Provider [phone] Encounter Details Date Type Department Care Team [...] Appointment [facility]ty [facility] [facility] [address] [place] [address] 11/24/2023 2:30 PM CDT Office Visit Specialty Center 39[address] Pulmonary Medicine [address] [place] [address] Jose Luis Grullon MD [address] [facility] [address] [place] [address] documented as of this encounter Visit Diagnoses Not on filedocumented in this encounter Care Teams Director Of Brand Marketing Relationship Specialty Start Date End Date Needs Pcp, [place] [address] PCP - General 06/22/22 documented as of this encounter
--- OUTSIDE RECORDS SUMMARY | 2023-11-09 17:21 | XMS_ITS | Encounter Summary ---
Author Name Unknown Organization [facility] Address [address] [place] [address] Care Team Providers Care Terminal Make Up Operator Name Role Phone Needs Pcp, Assignment Primary Care Provider Encounter Details Date Type Department Care Team (Late st Contact Info) Description 07/02/2016 Refill Order Specialty Center [facility] [address] [place] [address] [place] [address] [place], [place] [address] Social History Tobacco Use Types Packs/Day Years [...] pt. Trenton West CMA 07/02/2016, 8:40 AM TICAL NURSING FACULTY documented in this encounter Plan of Treatment Upcoming Encounters Date Type Department Care Team (Late st Contact Info) Description 11/24/2023 1:30 PM CDT Appointment Specialty Center 39[address] Pulmonary Lab [address] [facility] [address] 11/24/2023 2:30 PM CDT Office Visit Specialty Center 3931 Pulmonary Medicine [address] [place] [address] Jose Luis Grullon MD [address] [facility] [address] [place] [address] documented as of this encounter Visit Diagnoses Diagnosis Encounter for long-term (current) use of medications- Primary Encounter for long-term (current) use of other medications documented in this encounter Care Teams Terminal Make Up Operator Relationship Specialty Start Date [place] [address] PCP - General 06/22/22 documented as of this encounter
--- OUTSIDE RECORDS SUMMARY | 2023-11-09 17:21 | XMS_ITS | Encounter Summary ---
Author Name Unknown Organization [facility] Address [address] [place] [address] Care Team Providers Care Corporate Giving Manager Name Role Phone Needs Pcp, Assignment Primary Care Provider [phone] Encounter Details Date Type Department Care Team (Late st Contact Info) Description 09/30/2016 Refill Order Specialty Center [facility] [address] [facility] [place] [address] [place] [address] [place], [place] [address] Social History Tobacco Use Types Packs/Day Years [...] as of this encounter Nursing Notes * rTenton West CMA - 09/30/2016 7:52 AM CST Letter sent to pt. Trenton West CMA 09/30/2016, 7:52 AM RONICS TECHNICIAN documented in this encounter Plan of Treatment Upcoming Encounters Date Type Department Care Team (Late st Contact Info) Description 11/24/2023 1:30 PM CDT Appointment Specialty Center 39[address] Pulmonary Lab [address] [facility] [place] [address] 11/24/2023 2:30 PM CDT Office Visit Specialty Center 3931 Pulmonary Medicine 39[address] [place] [address] Jose Luis Grullon MD [address] [facility] [address] [place] [address] documented as of this encounter Visit Diagnoses Diagnosis Encounter for long-term (current) use of medications- Primary Encounter for long-term (current) use of other medications documented in this encounter Care Teams Corporate Giving Manager Relationship Specialty Start Date [place] [address] PCP - General 06/22/22 documented as of this encounter
[2023-11-09 21:49] LABS: Chlamydia DNA Amplified* NOT DETECTED (No Detected); GC DNA Amplified* NOT DETECTED (No Detected)
== END 2023-11-09 17:19 | disposition home or self-care (01) ==
LOC: NFLDREF 17:18
PROVIDERS: PCP Physician Assistant Medical; Visit Provider Physician Assistant
DX: Z34.81 Encounter for supervision of other normal pregnancy, first trimester (principal)
CPT/HCPCS: 86592; 86703; 86704; 86706; 86762; 86787; 86803; 86850; 86900; 86901; 87086; 87340; 87491; 87591

== ENCOUNTER 2025-02-10 20:30 | Emergency (ER) | payer OTHER, SELFPAY ==
--- OUTSIDE RECORDS SUMMARY | 2025-01-25 14:00 | XMS_ITS | Encounter Summary ---
Author Organization [facility] Address [address] [place] [address] Care Team Providers Care Electrodynamicist Name Role Phone Amna Urbina PA-C Primary Care Provider + Reason for Visit * Reason Comments PAIN, SINUS Encounter Details Date Type Department Care Team (Late st Contact Info) Description 01/25/2025 2:00 PM CDT Office Visit [place] [facility] [facility] [address] [place] [phone] [place] [address] [place], [place] [phone] Sinus congestion; Seasonal allergies Social History Tobacco Use Types Packs/Day Years Used Date Smoking Tobacco: Former Smokeless Tobacco: Never Alcohol Use Standard Drinks/Week Comments Not Currently 0 (1 standard drink = 0.6 oz pur e alcohol) social, maybe once a month Depression Answer Date Recor ded Last EPDS Total Score 12 09/05/2024 Last EPDS Self Harm Result Not on file 09/05 Comments No Sex and Gender Information Value Date Recorded Sex Assigned at Not on file Legal Sex Female 3:23 AM CDT Gender Identity Not on file Sexual Orientation Not on file Occupation Industry Job Start Date Job End Date 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 Not on file Not on file Not on file Student Not on file Not on file Not on file documented as of this encounter Last Filed Vital Signs Vital Sign Reading Time Taken Comments Blood Pressure 134/87 01/25/2025 1:10 PM CDT Pulse 84 01/25/2025 1:10 PM CDT Temperature 36.7 C (98 F) 01/25/2025 1:10 PM CDT Respiratory Rate 16 01/25/2025 1:10 PM CDT Oxygen Saturation 98% 01/25/2025 1:10 PM CDT Inhaled Oxygen Concentration - - Weight - - Height - - Body Mass Index - - documented in this encounter Progress Notes * Roland Abrams MD - 01/25/2025 2:00 PM CDT Juliette Gaming is a 34 y.o.female presents to the Urgent Care for PAIN, SINUS What cold symptoms are you experiencing?Nose/Sinus/Ear Do you have a runny nose? YES Are you sneezing? No Are you experiencing any nasal congestion? YES Are you experiencing any headaches?YES Do you have any facial or dental pain? YES Do you have any ear pain? No Do you have any eye itching or irritation? No Have you had a history of sinus infections? YES How long have you had these symptoms? 2 day(s) Have you had a fever? No Are there any treatments you have tried? YES What products have you tried? Tyelnol sinus Did the treatment help your symptoms? Has not changed Patient requests an excuse letter for work/school: No Past Medical History: Diagnosis Date Depression Dry mouth Gastric reflux Hypercholesterolemia Joint disorder Joint pain saw rheum, on plaquenil Major depressive disorder, single episode, moderate (HRC) 02/07/2010 situational Subject 32 years old female she is coming today to clinic she complained about sinus pressure drainage occasional she will see some blood tinted her nose drainage come doze started a proximally 2-3 days ago with no fever, she has no history of smoking, she has history of allergy she started to take her Zyrtec daily since October, inhaler use, she did see ENT doctor in the past mom she deny any possibility because she did had tubal ligation any other daily medication use reviewed with the patient as above Objective BP 134/87 (BP Location: Right Arm, BP Cuff Size: Regular - Long) Pulse 84 Temp 36.7 ??C (98 ??F) (Oral) Resp 16 SpO2 98% Vital signs stable alert oriented she does not seems to be distress Both ear clear Nose mucosa inflamed nasal turbinates bulging clear discharge no purulent or discharge any abnormalsmell Oral cavity pharynx uvula appear normal with clear postnasal drip Sinuses are not tender Neck no enlarged lymph Lungs no wheezing no crackles no rhonchi Cardiac S1-S2 regular Abdomen , extremity, skin she deny any problem Allergies With sinus pressure duration of 2-3 days, no sign and symptom of acute bacterial sinusitis present at this time Plan We discussed about prednisone side effect risk benefit discussed that will help for allergy continue with allergy medication continue nasal clear with such as nasal irrigation, if worse any additional symptom not improve 10 days or get worse or develops fever come back otherwise supportive care as above and follow- up primary doctor 10-14 days if as needed sooner or come back anytime she agree documented in this encounter Nursing Notes * Wilian Gotti - 01/25/2025 2:00 PM CDT Juliette Gaming is a 34 y.o.female presents to the Urgent Care for PAIN, SINUS What cold symptoms are you experiencing?Nose/Sinus/Ear Do you have a runny nose? YES Are you sneezing? No Are you experiencing any nasal congestion? YES Are you experiencing any headaches?YES Do you have any facial or dental pain? YES Do you have any ear pain? No Do you have any eye itching or irritation? No Have you had a history of sinus infections? YES How long have you had these symptoms? 2 day(s) Have you had a fever? No Are there any treatments you have tried? YES What products have you tried? Tyelnol sinus Did the treatment help your symptoms? Has not changed Patient requests an excuse letter for work/school: No documented in this encounter Plan of Treatment Not on file documented as of this encounter Visit Diagnoses Diagnosis Sinus congestion Other diseases of nasal cavity and sinuses Seasonal allergies Allergic rhinitis, cause unspecified documented in this encounter Care Teams Electrodynamicist Relationship Specialty Start Date End Date Amna Urbina PA-C [address] [place] [address] PCP - General Physician Student Services Director 12/14/24 documented as of this encounter
--- OUTSIDE RECORDS SUMMARY | 2025-02-10 20:32 | XMS_ITS | Encounter Summary ---
Author Organization [place] Address [facility] [place] [address] Care Team Providers Care First Coat Sander Name Role Phone Clinic, [facility] Primary Care Provider Charmaine Fox MD Unavailable [phone] Unavailable Unavailab Eliza Horner MD Unavailable [phone] Nargis Morris APRN CN Unavailable Libra Arevalo MD Unavailable [phone] Encounter Details Date Type Department Care Team (Late st Contact Info) Description 03/17/2024 [facility] Medical Advice [facility] [place] [address] [address] [place], [place] [address] Patricia Joseph, MARIIA Social History Tobacco Use Types Packs/Day Years Used Date Smoking Tobacco: Never Smokeless Tobacco: Never Alcohol Use Standard Drinks/Week Comments Not Currently 0 (1 standard drink = 0.6 oz pur e alcohol) PHQ-2 Answer Date Recorded PHQ-2 Score 0 03/08/2024 Adolescent Education Answer Date Record ed Getting School Help Needed Not on file 05/01 Comments Yes Sex and Gender Information Value Date Recorded Sex Assigned at Not on file Legal Sex Female 4:56 AM OPTICAL INSTRUMENT INSPECTOR Gender Identity Not on file Sexual Orientation Not on file documented as of this encounter Plan of Treatment Not on file documented as of this encounter Visit Diagnoses Not on filedocumented in this encounter Additional Health Concerns Assessment Noted Time PHQ-9 Depression Total Score: 3 02/25/20 24 9:11 AM CDT documented as of this encounter Care Teams First Coat Sander Relationship Specialty Start Date End Date [facility], [facility] [address] [facility] [place] [address] PCP - General 08/12/22 Charmaine Fox MD [address] [place], [place] [address] Assigned OBGYN Provider 02/22/2405/[address] [place] [address] Supervisor Leaf Spring Repair Dietitian 03/13/24 Eliza Davis MD [address] [facility] [address] [place], [place] [id number] Assigned Surgical Provider 04/24/24 Nargis Morris APRN CNM [address] [place] [address] Assigned OBGYN Provider 05/24/24 Libra Arevalo MD [address] [place] [address] Assigned Pediatric Specialist Provider 05/24/24 documented as of this encounter
--- OUTSIDE RECORDS SUMMARY | 2025-02-10 20:32 | XMS_ITS | Encounter Summary ---
Author Organization [place] Address [facility] [place] [address] Care Team Providers Care Mail Truck Driver Name Role Phone Clinic, [facility] [place] Primary Care Provider Libra Christine RD Unavailable Unavailab Eliza Horner MD Unavailable [phone] Nargis Morris APRN CN Unavailable Libra Arevalo MD Unavailable [phone] Encounter Details Date Type Department Care Team (Late st Contact Info) Description 06/08/2024 [facility] Medical Advice [facility] [place] [address] [place], [place] [address] Patricia Joseph, MARIIA Social History Tobacco Use Types Packs/Day Years Used Date Smoking Tobacco: Never Smokeless Tobacco: Never Alcohol Use Standard Drinks/Week Comments Not Currently 0 (1 standard drink = 0.6 oz pur e alcohol) PHQ-2 Answer Date Recorded PHQ-2 Score 0 05/02/2024 [place] Depression Scale Answer Date Recorded [place] Depression Scale Total 8 06/07/2024 The thought of harming myself has occurred to me . Never 06/07/2024 Adolescent Education Answer Date Record ed Getting School Help Needed Not on file 05/01 Food Insecurity Answer Date Recorded Within the past 12 months, d id you worry that your food would run out before you got money to buy more? No 05/26/2024 Within the past 12 months, d id the food you bought just not last and you didn t have money to get more? No 05/26/2024 Housing Stability Answer Date Recorded Do you have housing? (All swartz is defined as stable permanent housing and does not include staying outside in a car, in a tent, in an abandoned building, in an overnight retirement, or couch-surfing.) No 05/26/2024 Are you worried about losing your housing? No 05/26/2024 Financial Resource Strain Answer Date R ecorded Within the past 12 months, h ave you or your family members you live with been unable to get utilities (heat, electricity) when it was really needed? No 05/26/2024 Transportation Needs Answer Date Record ed Within the past 12 months, h as lack of transportation kept you from medical appointments, getting your medicines, non-medical meetings or appointments, work, or from getting things that you need? No 05/26/2024 Interpersonal Safety Answer Date Record ed Do you feel physically and e motionally safe where you currently live? Yes 05/26/2024 Within the past 12 months, h ave you been hit, slapped, kicked or otherwise physically hurt by someone? No 05/26/2024 Within the past 12 months, h ave you been humiliated or emotionally abused in other ways by your partner or ex-partner? No 05/26/2024 Comments No Sex and Gender Information Value Date Recorded Sex Assigned at Not on file Legal Sex Female 4:56 AM GIS ENGINEER Gender Identity Not on file Sexual Orientation Not on file documented as of this encounter Plan of Treatment Not on file documented as of this encounter Visit Diagnoses Not on filedocumented in this encounter Additional Health Concerns Assessment Noted Time PHQ-9 Depression Total Score: 3 05/02/20 24 9:08 AM CDT documented as of this encounter Care Teams Mail Truck Driver Relationship Specialty Start Date End Date Clinic, [facility] [place] [address] [place] [address] PCP - General 08/12/[address] [place] [address] Patrol Community Service Officer Dietitian 03/13/24 Eliza Davis MD [address] [facility] [address] [place], [place] [address] Assigned Surgical Provider 04/24/24 Nargis Morris APRN CNM [address] [place] [address] Assigned OBGYN Provider 05/24/24 Libra Arevalo MD [address] [place] [address] Assigned Pediatric Specialist Provider 05/24/24 documented as of this encounter
--- OUTSIDE RECORDS SUMMARY | 2025-02-10 20:32 | XMS_ITS | Clinical Summary ---
Author Organization [facility] Address [address] [place] [address] Care Team Providers Care Digital Marketer Name Role Phone Amna Urbina PA-C Primary Care Provider + Source Comments You are receiving this document as you are listed as the primary care provider,follow-up provider, or the patient has been referred to you for consultation.This is in compliance with the Medicare andMedicaid EHR Incentive Program,which states Providers who transition their patient to another setting of careor provider of care or refers their patient to another provider of care shouldprovide summary care record for each transition of care or referral. [facility] Allergies No known active allergies Medications * This document contains information received from the source organization and may not represent a complete record from that organization. fexofenadine (PATRICIA) 180 MG tablet Take 1 Tablet (180 mg) by mouth daily as needed for Other. Active fluticasone (FLONASE) 50 MCG/ACT nasal solution APPLY OR INSTILL 1 SPRAY INTO BOTH NOSTRILS DAILY. 48 g 1 7 Active Vit-Fe Fumarate-FA ( OR) Active Ca Cit Malate-Cholecal ciferol (CALCIUM CITRATE MALATE-VIT D OR) Active omeprazole (PRILOSEC) 20 MG capsule Take 1 Capsule (20 mg) by mouth two times a day. 180 Capsule 3 3 Active Calcium Carbonate-Vitam in D (OYSTER SHELL-VITAMIN D) 500-5 MG-MCG TABS Take by mouth. Active cetirizine (ZYRTEC) 10 MG tablet Take 1 Tablet (10 mg) by mouth. Active FLUoxetine (PROZAC) 20 MG capsule Take 1 Capsule (20 mg) by mouth every morning. Active Magnesium Oxide -Mg Supplement 400 MG CAPS Take 1 Capsule (400 mg) by mouth. Active NIFEdipine CC (ADALATCC) 30 MG 24 hour release tablet Take 1 Tablet (30 mg) by mouth daily. 4 Active oxyCODONE-aceta minophen (PERCOCET) 5-325 MG tabletIndicatio ns:Pain Take 1 Tablet by mouth every 6 hours as needed for Pain (severe pain). Indications: Pain 5 Tablet 12/14/2024 9:28 AM CDT 5 Active ondansetron (ZOFRAN) 4 MG tablet Take 1 Tablet (4 mg) by mouth every 8 hours as needed for Nausea. 9 Tablet 12/14/2024 9:28 AM CDT 5 Active beclomethasone (QVAR REDIHALER) 40 MCG/ACT HFA inhaler Inhale 1 Puff (40 mcg) by mouth two times a day. Rinse mouth/gargle after use. 10.6 g 11 12/14/2024 9:28 AM CDT 5 12/15/19 26 Active predniSONE (DELTASONE) 20 MG tabletIndicatio ns:Sinus congestion 2 pills first day then 1 pill q am 7 Tablet 5 Active mometasone furoate (ASMANEX) 220 MCG/ACT inhaler Inhale 2 Puffs daily. 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 Plan: annual Pap d/t Plaquenil rx Undifferentiated connective tissue disease 05/25 Abnormal TSH 12/14/2013 Familial hyperlipidemia 12/14/2013 Insomnia 02/18/2011 Contraceptive surveillance 07/29/2010 Chronic rhinitis 12/23/2004 Cough 12/23/2004 Resolved Problems Problem Noted Date Diagnosed Date Resolved Date Major depressive disorder, s kelly episode, moderate 02/07/2010 10/08/2011 Hypercholesterolemia 014 Encounters Date Type Department Care Team Description 01/25/2025 2:00 PM CDT Office Visit [facility] [address] [place] [address] Roland Abrams MD Sinus congestion; Seasonal allergies 12/22/2024 9:40 AM CDT [facility] Visit [facility] [address] [place] [address] Jaxson Dalton MD Subglottic stenosis (Primary Dx) 12/14/2024 7:32 AM CDT Anesthesia Event Operating Room [address] [place] [address] Lauri Gutierrez MD Berryman, Michael D, MD 12/14/2024 7:15 AM CDT - 12/14/2024 8:20 AM CDT Surgery [facility] Operating Room [address] [place] [address] Jaxson Dalton MD MICRO DIRECT LARYNGOSCOPY with tracheal dilation, application of mitomycin. 12/14/2024 5:42 AM CDT - 12/14/2024 10:13 AM CDT Hospital Encounter Operating Room [address] [place] [address] Jaxson Dalton MD Pain (Primary Dx) Discharge Disposition: Home 12/14/2024 Orders Only HIM DEPARTMENT Provider, MD Caden from Last 3 Months Immunizations Immunization Administration Dates Next Due 4vHPV (Gardasil) 11/18/2007,07/13/2007, 7 DTaP 02/23/1997, 3,01/10/1992,1991,1991 Flu Vac (3+ yrs) 05/23/2008 HepA Adult (19+ yrs) 12/14/2013 HepB, Unspecified Formulation 11/19/1995, 993,07/02/1992 Influenza IIV4 (Quadrivalent ) 0.5mL ([id number]) 05/26/2018,04/19/2017,04/02/2015,2013,05/26/2013 Influenza Vaccine (3+years) ([facility]) 04/22/2009 Influenza, Unspecified Formulation 05/03/2011 MCV4 (Menactra) 05/05/2007 MMR 03/12/2004,10/21/1992 OPV, Trivalent (Orimune or tOPV) 997,02/12/1993,1991,1991 Pfizer Monovalent 12+ Purple Top 09/10/2020,08/02 Td 03/12/2004 Tdap 10/08/2011 Varicella 05/16/2009,11/19/1995 Family History Medical History Relation Name Comments Anxiety Father Other Father Possible lactos e intolerance Hyperlipidemia Mother Coronary Artery Disease Maternal Grandfather [place] in his 40s Other Maternal Grandmother arthrit is Alzheimer's Paternal Grandfather Asthma Paternal Grandfather Coronary Artery Disease Paternal Grandfather Glaucoma Paternal Grandmother Cancer, Breast Negative Family History Cancer, Colon Negative Family History Cancer, Ovary Negative Family History Macular Degeneration Negative Family History Retinal Detachment Negative Family History Relation Name Status Comments Father Alive Mother Alive Brother Alive Maternal Grandfather (Age 45) [place] Maternal Grandmother (Age ? age) pancreatic ca [...] file Not on file Not on file Last Filed Vital Signs Vital Sign Reading Time Taken Comments Blood Pressure 134/87 01/25/2025 1:10 PM CDT Pulse 84 01/25/2025 1:10 PM CDT Temperature 36.7 C (98 F) 01/25/2025 1:10 PM CDT Respiratory Rate 16 01/25/2025 1:10 PM CDT Oxygen Saturation 98% 01/25/2025 1:10 PM CDT Inhaled Oxygen Concentration - - Weight 84.4 kg (186 lb) 12/14/2024 6:04 AM CDT Height 154.9 cm (5' 1) 12/14/2024 6:04 AM CDT Body Mass Index 35.14 12/14/2024 6:04 AM CDT Plan of Treatment Health Maintenance Due Date Last Done Comments HIV Screening (Preventive Services) 2007 Cervical Cancer Screening 03/26/2018 03/26/2017, Adult Preventive Visit 03/26/2019 7, 05/26/2013, 12/16/2011, Additional history exists COVID-19 Vaccine ( season) 2024 06/30/2021, 09/10/2020, 08/20/2020 Influenza Vaccine (#1) 2025 , 05/28/2023, 05/22/2022, Additional history exists DTaP/Tdap/Td Vaccine (9 - Tdap) 03/29/2034 03/29/2024, 07/23/2022, 10/08/2011, Additional history exists Zoster/Shingles Vaccine (1 of 2) 2041 HepB Vaccine Completed 11/19/1995, 01/30, 07/02/1992 IPV (Polio) Vaccine Completed 02/23/1997, 02/12/1993, 1991, Additional history exists MCV4 Vaccine Aged Out 05/05/2007 No longer eligi ble based on patient's age to complete this topic HepA Vaccine Completed 12/14/2013, 11/21/2012 Hep C Screening (Preventive Services) Completed 02/23/2014 HPV Vaccine Completed 10/20/2021, 10/31, 07/13/2007, Additional history exists Hib Vaccine Aged Out No longer eligi ble based on patient's age to complete this topic Meningococcal B Vaccine Aged Out No l onger eligible based on patient's age to complete this topic Pneumococcal Vaccine Aged Out No long er eligible based on patient's age to complete this topic Procedures Procedure Name Priority Date/Time Associated Diagnosis Comments DIRECT LARYNGOSCOPY WITH BALOON DILATATION Same Day Surgery 12/14/2024 7:22 AM CDT Subglottic stenosis POCT URINE Routine 12/14/2024 6:15 AM CDT EKG 12/14/2024 PAP TEST, ROUTINE Routine 03/26/2017 3:5 8 PM CDT Preventative health care HEPATITIS C ANTIBODY, WITH REFLEX (ANTI-HCV) Routine 02/23/2014 1:40 PM CDT Pain in joint, multiple sites from Last 3 Months or Most Recently Relevant to Health Maintenance Results * POCT urine (12/14/2024 6:15 AM CDT) Urine Test - POC Negative Negative POCT Control Line Present, Clear Background - Internal control Yes POCT Cartridge Lot # [id number] POCT Urine 12/14/2024 6:15 AM CDT us Lauri Gutierrez MD ET POINT OF CARE TEST EN TER/EDIT ORDERABLES Final Result POCT * EKG (12/14/2024) us Interface Provider MD MELGAR Final Resu lt * Pap Test, Routine (03/26/2017 3:58 PM CDT) Cytology, Pap (NOTE) [employer]ox Machine Assembler Cytology Report Patient Name: JULIETTE GAMING Taken: 03/26/2017 Received: 03/29/2017 Reported: 04/07/2017 Physician(s): CHAYA BAUTISTA Source of Specimen Pap Test, Routine Cervical/Endocer vical: Specimen Adequacy Satisfactory for evaluation. Endocervical component present. Final Cytologic Interpretation/R esult EPITHELIAL CELL ABNORMALITIES Atypical squamous cells, undetermined significance (ASC-US). Human Papilloma Virus Ancillary Testing Specimen sent for HPV testing as requested by provider; separate report to follow *Electronically Signed Out By* MD Yvette Mckee (ASCP) Pap Smear History Date of Last Menstrual Period: 03/15/2017 Microscopic Description Microscopic examination is performed. [facility] Department of Pathology [address] [place] [id number] [facility] 03/26/2017 3:5 8 PM CDT 03/29/2017 12:00 PM CDT us Chaya Bautista MD LAB_1 Final Result Performing Organization Address City/[facility] Co de Phone Number [facility] [phone] * HEPATITIS C AB(aka ANTI-HCV) [0982] (02/23/2014 1:40 PM CDT) Anti-HCV Negative (Non Reactive) NEGNR [facility] Comment:Does Not Rule Out In fection with HCV 02/23/2014 1:40 PM CDT 02/23/2014 1:53 PM CDT Narrative [facility] - 02/26/2014 12:15 PM CDT Performed at [facility], [address] [address] us Orlando Mckinley MD LAB_1 Final Result Performing Organization Address City/[facility] Co de Phone Number [facility] [phone] from Last 3 Months or Most Recently Relevant to Health Maintenance Insurance MEDICA CHOICE MEDICA CHOICE [facility] Care Teams Digital Marketer Relationship Specialty Start Date End Date Amna Urbina PA-C [address] [place] [address] PCP - General Physician Tinsmith Apprentice 12/14/24
--- OUTSIDE RECORDS SUMMARY | 2025-02-10 20:32 | XMS_ITS | Encounter Summary ---
Author Organization [facility] Address [address] [place] [address] Care Team Providers Care Frameman Name Role Phone Amna Urbina PA-C Primary Care Provider + Encounter Details Date Type Department Care Team (Late st Contact Info) Description 08/26/2014 Emergency Room External to [facility], Provider EAR PAIN Social History Tobacco Use Types Packs/Day Years Used Date Smoking Tobacco: Former Smokeless Tobacco: Never Comments:only smoked occ Alcohol Use Standard Drinks/Week Comments Yes 0.8 (1 standard drink = 0.6 oz p ure alcohol) soc Comments No Sex and Gender Information Value [...] on filedocumented in this encounter Care Teams Frameman Relationship Specialty Start Date End Date Amna Urbina PA-C [address] [place] [address] PCP - General Physician Senior Information Security Consultant 12/14/24 documented as of this encounter
--- OUTSIDE RECORDS SUMMARY | 2025-02-10 20:32 | XMS_ITS | Encounter Summary ---
Author Organization [facility] Address [facility] [place] [address] Care Team Providers Care Stave Saw Operator Name Role Phone [facility], [facility] [place] Primary Care Provider Libra Christine RD Unavailable Unavailab Eliza Horner MD Unavailable [phone] Nargis Morris APRN CN Unavailable Libra Arevalo MD Unavailable [phone] Encounter Details Date Type Department Care Team (Late st Contact Info) Description 06/30/2024 [facility] [place] [address] [place], [place] [address] Patricia Joseph, MARIIA Social History Tobacco Use Types Packs/Day Years Used Date Smoking Tobacco: Never Smokeless Tobacco: Never Alcohol Use Standard Drinks/Week Comments Not Currently 0 (1 standard drink = 0.6 oz pur e alcohol) PHQ-2 Answer Date Recorded PHQ-2 Score 0 05/02/2024 [place] Depression Scale Answer Date Recorded [place] Depression Scale Total 8 06/07/2024 The thought [...] in an abandoned building, in an overnight nursing home, or couch-surfing.) No 05/26/2024 Are you worried [...] on file 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 Gender Identity Not on file Sexual Orientation Not on file documented as of this encounter Plan of Treatment Not on file documented as of this encounter Visit Diagnoses Not on filedocumented in this encounter Additional Health Concerns Assessment Noted Time PHQ-9 Depression Total Score: 3 05/02/20 24 9:08 AM CDT documented as of this encounter Care Teams Stave Saw Operator Relationship Specialty Start Date End Date [facility], [facility] [place] [address] [place] [address] PCP - General 08/12/[address] [place] [address] Cyber Security Engineer Dietitian 03/13/24 Eliza Davis MD [address] [facility] [address] [place], [place] [id number] Assigned Surgical Provider 04/24/24 Nargis Morris APRN CNM [address] [place] [address] Assigned OBGYN Provider 05/24/24 Libra Arevalo MD [address] [place] [address] Assigned Pediatric Specialist Provider 05/24/24 documented as of this encounter
--- OUTSIDE RECORDS SUMMARY | 2025-02-10 20:32 | XMS_ITS | Clinical Summary ---
Author Organization [facility] [facility] Address [address] [place] [address] Care Team Providers Care Quarry Supervisor Name Role Phone Amna Urbina Primary Care Provider Allergies No known active allergies Medications calcium citrate (CITRACAL) 200 mg (950 mg) tablet Take 1 Tablet by mouth once daily in the morning. Active cetirizine (ZYRTEC) 10 mg tablet Take 10 mg by mouth. Active omeprazole (PRILOSEC) 20 mg Delayed-Release capsule Take 20 mg by mouth. 08/10/2022 Active magnesium oxide 400 mg magnesium capsule Take 1 Tablet by mouth once daily in the morning. Active fluticasone (50 mcg per actuation) nasal solution (FLONASE) Inhale 1 [place] into affected nostril(s). Active famotidine (PEPCID) 10 mg tablet Take 10 mg by mouth. Active FLUoxetine (PROZAC) 20 mg capsuleIndicati ons:CATHRYN (generalized anxiety disorder),MDD (major depressive disorder), single episode, mild,Post depression Take 1 Capsule (20 mg) by mouth once daily in the morning. 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 Plan: annual Pap d/t Plaquenil rx Undifferentiated connective tissue disease 05/25 Familial hyperlipidemia 12/14/2013 Abnormal TSH 12/14/2013 Insomnia 02/18/2011 Chronic rhinitis 12/23/2004 Resolved Problems Problem Noted Date Diagnosed Date Resolved Date Gestational hypertension 05/29/202411/2024 Anemia during in third trimester 04/11/2024 12/04/2024 High risk medication use 05/26/201811/2024 Encounters Date Type Department Care Team Description 12/08/2024 3:15 PM CDT Orders Only [facility] [address] [place] [address] Lab, [facility] 12/08/2024 Travel 12/04/2024 9:00 AM CDT Office Visit [facility] [address] [place] [address] Alek Cordova MD Preoperative Exam (DOS 12/14/24) 12/04/2024 Travel 12/02/2024 Travel from Last 3 Months Immunizations Immunization Administration Dates Next Due COVID-19 vaccine (Hangtime NTech 30mcg/0.3mL) SAM GUZMAN 09/10/2020,08/20/2020 DTaP 02/23/1997, 3,01/10/1992,11/07,1991 HPV 9 (Gardasil 9) 10/20/2021,11/18/2007 Hepatitis A (Adult) 12/14/2013,11/21/2012 Hepatitis B, Unspecified 11/19/1995,02/12/1993,1 1991 Human Papilloma Virus Vaccine 11/18/2007, 007,05/05/2007 INFLUENZA, IIV3 PF (AGE >= 6 MO) 05/02/2024,03/04 Influenza Virus, Unspecified 05/02/2024, 05/28/2023,05/22/2022,06/30,05/26/2018,04/19/2017,03/31/2016 ,04/02/2015,05/10/2014,05/26/2013,09/2010,05/03/2011,04/22/2009, 8 Influenza, IIV3 (Age >=3 years) 04/22/2009,05/23 Influenza, IIV4 05/28/2023, 2,06/30/2021,05/26,04/19/2017,04/02/2015,05/10/2014 Influenza, IIV4 (=>6mos) MDV 05/26/2013 MMR 03/12/2004,10/21/1992 Meningococcal Vaccine (Menactra) 05/05/2007 Oral Polio Vaccine 02/23/1997, 3,1991,09/15 RSV, Bivalent Vaccine Recons tituted (Abrysvo 120MCG/0.5mL) 05/02/2024 Td (Age >=7 Years) 03/12/2004 Td, Preservative Free (age >= 7 Years) 4 Tdap 10/08/2011 Tdap, Unspecified 03/29/2024,07/23/2022 Varicella Vaccine 10/12/2022,05/16/2009,11/18/18 96 Family History Medical History Relation Name Comments Vitiligo Brother Alcoholism Father Anxiety disorder Father Depression Father Heart murmur Father Hyperlipidemia Father Hypertension Father Heart attack Maternal Grandfather passed from [place] Cancer-pancreatic Maternal Grandmother Hyperlipidemia Mother Dementia Paternal Grandfather Heart attack Paternal Grandfather multipl e Arthritis Paternal Grandmother Dementia Paternal Grandmother Cancer-breast No Family History Cancer-colon No Family History Diabetes No Family History Relation Name Status Comments Brother Alive Father Alive Maternal Grandfather Maternal Grandmother Mother Alive Paternal Grandfather Paternal Grandmother Alive Social History Tobacco Use Types Packs/Day Years Used Date Smoking Tobacco: Never Passive Smoke Exposure: Never Smokeless Tobacco: Never Tobacco Cessation:Counseling Given: Not Answered Alcohol Use Standard Drinks/Week Comments Not Currently 0 (1 standard drink = 0.6 oz pur e alcohol) PHQ-2 Answer Date Recorded PHQ-2 TOTAL SCORE 2 08/25/2024 [place] Depression Scale Answer Date Recorded [place] Depression Scale Total 14 06/23/2024 The thought of harming myself has occurred to me . Never 06/23/2024 Social Connections Answer Date Recorded Do you often feel lonely or isolated from those around you? 0 08/25/2024 Financial Resource Strain Answer Date R ecorded Difficulty of Paying Living Expenses 3 08/25/2024 Difficulty of Paying Living Expenses Not on file 08/25/2024 Food Insecurity Answer Date Recorded Do you worry your food will run out before you are able to buy more? 1 08/25/2024 Transportation Needs Answer Date Record ed Does lack of transportation keep you from medica l appointments? 1 08/25/2024 Does lack of transportation keep you from work, meetings or getting things that you need? 1 08/25/2024 Housing Stability Answer Date Recorded What is your housing situation today? 1 08/25/2024 Utilities Answer Date Recorded Do you have trouble paying f or utilities (for example, heat, electricity, water, phone)? 1 08/25/2024 Comments No Sex and Gender Information Value Date Recorded Sex Assigned at Not on file Legal Sex Female 5:47 PM CDT Gender Identity Not on file Sexual Orientation Not on file Obstetrics History Para Term AB IAB SAB Ectopic Multiple Livin g Live Births 3 2 1 1 1 1 3 3 Date Outcome GA Total Labor Labor/2nd/3rd Weight Sex Type Anes PTL Macrina A1 A5 Name Clin AB 2022 35w 0d 2.04 kg (4 lb 8 oz) M CS-LT ranv Spinal N Livin g Dr. Shaw Complications:Gestational di abetes mellitus (GDM) () Delivery Location:[facility] Comments:circu 2023 Term 37w 1d 0h 04m 0h 04m 2.05 kg (4 lb 8.3 oz) F CS-LT ranv Spinal N Livin g 8 9 Female -A Juliette correia MD Delivery Location:[facility]) 2023 Term 37w 1d 0h 03m 0h 03m 2.45 kg (5 lb 6.4 oz) M CS-LT ranv Spinal N Livin g 8 9 Male-B Juliette correia MD Delivery Location:[facility] ([facility]) Last Filed Vital Signs Vital Sign Reading Time Taken Comments Blood Pressure 120/66 12/04/2024 9:08 AM CDT Pulse 74 12/04/2024 9:08 AM CDT Temperature 36.4 C (97.6 F) 12/04/2024 9:08 AM CDT Respiratory Rate 16 06/23/2024 10:05 AM INSPECTING AND TESTING LEAD HAND Oxygen Saturation 97% 12/04/2024 9:08 AM CDT Inhaled Oxygen Concentration - - Weight 84.6 kg (186 lb 8 oz) 12/04/2024 9:08 AM CDT Height 156.8 cm (5' 1.75) 12/04/2024 9:08 AM CD T Body Mass Index 34.39 12/04/2024 9:08 AM CDT Plan of Treatment Health Maintenance Due Date Last Done Comments HIV for age 15-65 2006 Hepatitis C screening for age 18-79 2009 COVID-19 vaccine series () 04/02/2024 06/30/2021, 09/10/2020, 08/20/2020 Influenza Vaccine (#1) 2025 4, 05/02/2024, 05/28/2023, Additional history exists Depression screening for age 12+ 08/25/2025 08/25/2024, 07/17/2024, 06/23/2024 BMI (ht and wt on same day) for age 18+ 12/04/2025 12/04/2024, 06/23/2024 Pap test for age 21-65 08/13/2026 4, 08/13/2023, 02/10/2021 Tetanus booster 03/29/2034 03/29/2024, 07/03, 10/08/2011, Additional history exists Hepatitis B series for 19+ Completed 11/18, 02/12/1993, 07/02/1992 Pneumococcal series for age 6-49 Aged Out No longer eligible based on patient's age to complete this topic Procedures Procedure Name Priority Date/Time Associated Diagnosis Comments TSH WITH REFLEX Routine 12/08/2024 3:03 PM CDT Abnormal TSH CBC W PLT NO DIFF Routine 12/08/2024 3:0 3 PM CDT anemia (HC) HEMOGLOBIN A1C Routine 12/08/2024 3:03 PM CDT Screening for diabetes mellitus HPV HIGH RISK Routine 08/13/2023 12:00 PM INSPECTING AND TESTING LEAD HAND from Last 3 Months or Most Recently Relevant to Health Maintenance Results * HEMOGLOBIN A1C (12/08/2024 3:03 PM CDT) HEMOGLOBIN A1C 5.2 <5.7 % [facility] Comment: For the purpose of screening for the presence of diabetes: <5.7% Consistent with the absence of diabetes 5.7-6.4% Consistent with increased risk for diabetes (prediabetes) > or =6.5% Consistent with diabetes This assay result is consistent with a decreased risk of diabetes. Currently, no consensus exists regarding use of hemoglobin A1c for diagnosis of diabetes in children. According to [place] Diabetes Association (ADA) guidelines, hemoglobin A1c <7.0% represents optimal control in non- diabetic patients. Different metrics may apply to specific patient populations. Standards of Medical Care in Diabetes(ADA). Blood BLOOD SPECIMEN / Unknown 12/08/2024 3:03 PM CDT 12/08/2024 3:03 PM CDT Alek Cordova MD CHEMISTRY Final Result [facility] [address] [place] [address], [facility] [address] [place] [address] * TSH WITH REFLEX (12/08/2024 3:03 PM CDT) TSH W/REFLEX TO FT4 2.29 mIU/L [facility] Comment: Reference Range > or = 20 Years 0.40-4.50 Ranges First trimester 0.26-2.66 Second trimester 0.55-2.73 Third trimester 0.43-2.91 Blood BLOOD SPECIMEN / Unknown 12/08/2024 3:03 PM CDT 12/08/2024 3:03 PM CDT Alek Cordova MD CHEMISTRY Final Result [facility] [address] [place] [address], [facility] [address] [place] [address] * (ABNORMAL) CBC W PLT NO DIFF (12/08/2024 3:03 PM CDT) Pathologist [facility] WHITE BLOOD CELL COUNT 7.7 3.8 - 10.8 Thousand/u L [facility] RED BLOOD CELL COUNT 4.59 3.80 - 5.10 Million/uL [facility] HEMOGLOBIN 12.7 11.7 - 15.5 g/dL [facility] HEMATOCRIT 40.1 35.0 - 45.0 % [facility] MCV 87.4 80.0 - 100.0 fL [facility] MCH 27.7 27.0 - 33.0 pg [facility] MCHC 31.7(L) 32.0 - 36.0 g/dL [facility] Comment: For adults, a slight decrease in the calculated MCHC value (in the range of 30 to 32 g/dL) is most likely not clinically significant; however, it should be interpreted with caution in correlation with other red cell parameters and the patient's clinical condition. RDW 12.3 11.0 - 15.0 % [facility] PLATELET COUNT 380 140 - 400 Thousand/u L [facility] MPV 9.7 7.5 - 12.5 fL [facility] Blood BLOOD SPECIMEN / Unknown 12/08/2024 3:03 PM CDT 12/08/2024 3:03 PM CDT Alek Cordova MD HEMATOLOGY Final Result Performing Organization Address [facility]/ZIP Co de Phone Number [facility] [address] [place] [address], [facility] [address] [place] [address] * HPV HIGH RISK (08/13/2023 12:00 PM INSPECTING AND TESTING LEAD HAND) TYPE 16 Negative Negative 08/18/2023 11:15 AM INSPECTING AND TESTING LEAD HAND [facility] TYPE 18 Negative Negative 08/18/2023 11:15 AM INSPECTING AND TESTING LEAD HAND [facility] OTHER HIGH RISK TYPES Negative Negative 08/18/2023 11:15 AM INSPECTING AND TESTING LEAD HAND [facility] Other (Cervical) 08/13/2023 12:00 PM INSPECTING AND TESTING LEAD HAND 08/16/2023 10:40 AM INSPECTING AND TESTING LEAD HAND Narrative [facility] - 08/18/2023 11:15 AM INSPECTING AND TESTING LEAD HAND HPV types 16, 18, 31, 33, 35, 39, 45, 51, 52, 56, 58, 59, 66 and 68 DNA were undetectable or below the pre-set threshold. Methodology: Monty Jennifer 4800 HPV Test October Steffanie AJ MICROBIOLOGY Final Resu lt Performing Organization Address City/[facility]/ZIP Co de Phone Number [facility] [address] [place] [address], [place] from Last 3 Months or Most Recently Relevant to Health Maintenance Insurance [employer] CHOICE Care Teams Quarry Supervisor Relationship Specialty [place] [address] [address]aj [place], [place] [phone] PCP - General Physician Bindery Library Technical Assistant 06/23/24
--- OUTSIDE RECORDS SUMMARY | 2025-02-10 20:32 | XMS_ITS | Encounter Summary ---
Author Organization [place] Address Formerly [facility], [facility] [place] [address] Care Team Providers Care Botany Technician Name Role Phone Clinic, Belinda Winston Primary Care Provider Libra Christine RD Unavailable Unavailab Eliza Horner MD Unavailable [phone] Nargis Morris APRN CN Unavailable Libra Arevalo MD Unavailable [phone] Encounter Details Date Type Department Care Team (Late st Contact Info) Description 06/22/2024 [facility] Medical Advice [facility] [place] [address] [place], [place] [address] Mary Griggs, RN Social History Tobacco Use Types Packs/Day Years Used Date Smoking Tobacco: Never Smokeless Tobacco: Never Alcohol Use Standard Drinks/Week Comments Not Currently 0 (1 standard drink = 0.6 oz pur e alcohol) PHQ-2 Answer Date Recorded PHQ-2 Score 0 05/02/2024 [place] Depression Scale Answer Date Recorded [place] Depression Scale Total 8 06/07/2024 The [...] in an abandoned building, in an overnight snf, or couch-surfing.) No 05/26/2024 Are you worried [...] on file 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 Gender Identity Not on file Sexual Orientation Not on file documented as of this encounter Plan of Treatment Not on file documented as of this encounter Visit Diagnoses Not on filedocumented in this encounter Additional Health Concerns Assessment Noted Time PHQ-9 Depression Total Score: 3 05/02/20 24 9:08 AM CDT documented as of this encounter Care Teams Botany Technician Relationship Specialty Start Date End Date Clinic, Belinda [place] [address] [place] [address] PCP - General 08/12/[address] [facility] [place] [address] Smog Technician Dietitian 03/13/24 Eliza Davis MD [address] [facility] [address] [facility] [address] [place], [place] [address] Assigned Surgical Provider 04/24/24 Nargis Morris APRN CNM [address] [place] [address] Assigned OBGYN Provider 05/24/24 Libra Arevalo MD [address] [place] [address] Assigned Pediatric Specialist Provider 05/24/24 documented as of this encounter
--- OUTSIDE RECORDS SUMMARY | 2025-02-10 20:32 | XMS_ITS | Encounter Summary ---
Author Organization [facility] Address [address] [place] [address] Care Team Providers Care Wood Engraver Name Role Phone Amna Urbina PA-C Primary Care Provider + Encounter Details Date Type Department Care Team (Late st Contact Info) Description 09/28/2017 Refill Order [facility] [address] [place], [place] [address] [place] [address] [place], [place] [address] Social History Tobacco Use Types Packs/Day Years [...] notified. [place] CMA 09/30/2017, 8:46 AM ETIC FIELD CUSTODIAN documented in this encounter Plan of Treatment Not on file documented as of this encounter Visit Diagnoses Diagnosis Encounter for long-term (current) use of medications- Primary Encounter for long-term (current) use of other medications documented in this encounter Care Teams Wood Engraver Relationship Specialty Start Date End Date Amna Urbina PAIvanC [address] [place] [address] PCP - General Physician Pbx Supervisor 12/14/24 documented as of this encounter
--- OUTSIDE RECORDS SUMMARY | 2025-02-10 20:32 | XMS_ITS | Encounter Summary ---
Author Organization [employer] Address [address] [place] [address] Care Team Providers Care Rn Infusion Name Role Phone Amna Urbina PA-C Primary Care Provider + Encounter Details Date Type Department Care Team (Late st Contact Info) Description 05/28/2014 Consent for Procedure/Treatme nt [facility] Department INFORMED CONSENT RECORD Social History Tobacco Use [...] on filedocumented in this encounter Care Teams Rn Infusion Relationship Specialty Start Date End Date Amna Urbina PA-C [address] [place], [place] [phone] PCP - General Physician Computer Graphic Artist 12/14/24 documented as of this encounter
--- OUTSIDE RECORDS SUMMARY | 2025-02-10 20:32 | XMS_ITS | Encounter Summary ---
Author Organization [place] Address [facility] [place] [address] Care Team Providers Care Synthetic Gem Press Operator Name Role Phone Clinic, Belinda Lowell Primary Care Provider Libra Christine RD Unavailable Unavailab Eliza Horner MD Unavailable [phone] Nargis Morris APRN CN Unavailable Libra Arevalo MD Unavailable [phone] Encounter Details Date Type Department Care Team (Late st Contact Info) Description 06/27/2024 [facility] Medical Advice [facility] [place] [address] [place], [place] [phone] Joceline Xie, RN Social History Tobacco Use Types Packs/Day Years Used Date Smoking Tobacco: Never Smokeless Tobacco: Never Alcohol Use Standard Drinks/Week Comments Not Currently 0 (1 standard drink = 0.6 oz pur e alcohol) PHQ-2 Answer Date Recorded PHQ-2 Score 0 05/02/2024 [place] Depression Scale Answer Date Recorded [place] Depression Scale Total 8 06/07/2024 The thought [...] in an abandoned building, in an overnight assisted, or couch-surfing.) No 05/26/2024 Are you worried [...] on file 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 Gender Identity Not on file Sexual Orientation Not on file documented as of this encounter Plan of Treatment Not on file documented as of this encounter Visit Diagnoses Not on filedocumented in this encounter Additional Health Concerns Assessment Noted Time PHQ-9 Depression Total Score: 3 05/02/20 24 9:08 AM CDT documented as of this encounter Care Teams Synthetic Gem Press Operator Relationship Specialty Start Date End Date Clinic, Belinda Cruz [address] [place] [address] PCP - General 08/12/[address] [place] [address] Director Of Loss Prevention Dietitian 03/13/24 Eliza Davis MD [address] [facility] [address] [facility] [address] [place], [place] [address] Assigned Surgical Provider 04/24/24 Nargis Morris APRN CNM [address] [place] [address] Assigned OBGYN Provider 05/24/24 Libra Arevalo MD [address] [place] [address] Assigned Pediatric Specialist Provider 05/24/24 documented as of this encounter
--- OUTSIDE RECORDS SUMMARY | 2025-02-10 20:32 | XMS_ITS | Encounter Summary ---
Author Organization [place] Address Formerly [facility], [facility] [place] [address] Care Team Providers Care Eye Physician Name Role Phone Clinic, Bel[facility] [place] Primary Care Provider Libra Christine RD Unavailable Unavailab Eliza Horner MD Unavailable [phone] Nargis Morris APRN CN Unavailable Libra Arevalo MD Unavailable [phone] Encounter Details Date Type Department Care Team (Late st Contact Info) Description 07/05/2024 [facility] Medical Advice [facility] [place] [address] [place], [place] [address] Patricia Joseph, MARIIA Social History Tobacco Use Types Packs/Day Years Used Date Smoking Tobacco: Never Smokeless Tobacco: Never Alcohol Use Standard Drinks/Week Comments Not Currently 0 (1 standard drink = 0.6 oz pur e alcohol) PHQ-2 Answer Date Recorded PHQ-2 Score 0 05/02/2024 [place] Depression Scale Answer Date Recorded [place] Depression Scale Total 8 06/07/2024 The thought [...] in an abandoned building, in an overnight half-way, or couch-surfing.) No 05/26/2024 Are you worried [...] on file 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 Gender Identity Not on file Sexual Orientation Not on file documented as of this encounter Plan of Treatment Not on file documented as of this encounter Visit Diagnoses Not on filedocumented in this encounter Additional Health Concerns Assessment Noted Time PHQ-9 Depression Total Score: 3 05/02/20 24 9:08 AM CDT documented as of this encounter Care Teams Eye Physician Relationship Specialty Start Date End Date Clinic, Belinda Cruz [address] [place] [address] PCP - General 08/12/[address] [place] [address] Moulder Operator Dietitian 03/13/24 Eliza Davis MD [address] [facility] [address] [place], [place] [address] Assigned Surgical Provider 04/24/24 Nargis Morris APRN CNM [address] [place] [address] Assigned OBGYN Provider 05/24/24 Libra Arevalo MD [address] [place] [address] Assigned Pediatric Specialist Provider 05/24/24 documented as of this encounter
--- OUTSIDE RECORDS SUMMARY | 2025-02-10 20:32 | XMS_ITS | Encounter Summary ---
Author Organization [employer] Address [address] [place] [address] Care Team Providers Care Pharmacy Teacher Name Role Phone Amna Urbina PA-C Primary Care Provider + Encounter Details Date Type Department Care Team (Late st Contact Info) Description 12/16/2011 Correspondence None Inactive, Provider MED EQUIPMENT PROOF OF DELIVERY Social History Tobacco Use Types Packs/Day Years Used Date Smoking Tobacco: Never Smokeless Tobacco: Never Alcohol Use Standard Drinks/Week Comments No 0 (1 standard drink = 0.6 oz pur e alcohol) Comments No Sex and Gender Information Value [...] on filedocumented in this encounter Care Teams Pharmacy Teacher Relationship Specialty Start Date End Date Amna Urbina PA-C [address] [place] [address] PCP - General Physician Cutting And Splicing Supervisor 12/14/24 documented as of this encounter
--- OUTSIDE RECORDS SUMMARY | 2025-02-10 20:32 | XMS_ITS | Clinical Summary ---
Author Organization [facility] Address [address] [place] [address] Care Team Providers Care Digital Photo Printer Name Role Phone [facility] Primary Care Provider Libra Christine RD Unavailable Unavailab Eliza Horner MD Unavailable [phone] Nargis Morris APRN [facility] Unavailable Libra Arevalo MD Unavailable [phone] Allergies No known active allergies Medications OMEPRAZOLE PO Take 20 mg by mouth 2 times daily Active Vit-Fe Fumarate-FA ( MULTIVITAMIN W/IRON) 27-0.8 MG tablet Take 1 tablet by mouth every morning Active calcium citrate (CITRACAL) 950 (200 Ca) MG tablet Take 1 tablet by mouth every morning Active fluticasone (FLONASE) 50 MCG/ACT nasal spray Molina 1 spray into both nostrils every morning Active cetirizine (ZYRTEC) 10 MG tablet Take 10 mg by mouth every morning Active magnesium oxide 400 MG CAPS Take 1 tablet by mouth every morning Active famotidine (PEPCID) 10 MG tablet Take 10 mg by mouth 2 times daily. Active loratadine (CLARITIN) 10 MG tablet Take 10 mg by mouth daily. Active acetaminophen (TYLENOL) 325 MG tabletIndications :S/P section Take 2 tablets (650 mg) by mouth every 6 hours as needed for mild pain. Start after Delivery. 100 tablet Active ibuprofen (ADVIL/MOTRIN) 600 MG tabletIndications :S/P section Take 1 tablet (600 mg) by mouth every 6 hours as needed for moderate pain. Start after delivery 60 tablet Active labetalol (NORMODYNE) 100 MG tabletIndications :Routine follow-up,Preecla mpsia in period Take 1 tablet (100 mg) by mouth 2 times daily. 60 tablet 1 Active FLUoxetine (PROZAC) 10 MG capsule Take 10 mg by mouth daily. 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 05/25 Familial hyperlipidemia 12/14/2013 Immunizations Immunization Administration Dates Next Due COVID-19 MONOVALENT 12+ (Pfizer) 09/10/2020,08/02 DTAP (<7y) 02/23/1997, 3,01/10/1992,11/07,1991 HPV Quadrivalent 07/13/2007,05/05/2007 HPV9 (Gardasil) 10/20/2021,11/18/2007 HepB, Unspecified 11/19/1995,02/12/1993,07/02/19 92 Hepatitis A (VAQTA)(ADULT 19+) 12/14/2013,2012 Influenza (IIV3) PF 04/22/2009,05/23/2008 Influenza Vaccine >6 months,quad, PF ,05/22/2022,06/30/2021,05/26,04/19/2017,04/02/2015,05/10/2014 ,05/03/2011 Influenza Vaccine, 6+MO IM (QUADRIVALENT W/PRESERVATIVES) 05/26/2013 Influenza, Split Virus, Triv alent, Pf (Fluzone\Fluarix) 05/02/2024,03/31/2016 MMR (MMRII) 03/12/2004,10/21/1992 Meningococcal ACWY (Menactra ) 05/05/2007 OPV, trivalent, live 02/23/1997,02/12/19 93,1991,09/15 RSV (Abrysvo) 05/02/2024 TDAP (Adacel,Boostrix) 03/29/2024,07/23/2022,03/2012 Td (Adult), Adsorbed 03/12/2004 Varicella (Varivax) 10/12/2022,05/16/2009,1995 Family History Medical History Relation Comments Anesthesia Reaction No family hx of Deep Vein Thrombosis (DVT) No family hx of Social History Tobacco Use Types Packs/Day Years Used Date Smoking Tobacco: Never Smokeless Tobacco: Never Tobacco Cessation:Counseling Given: Not Answered Alcohol Use Standard Drinks/Week Comments Not Currently 0 (1 standard drink = 0.6 oz pur e alcohol) PHQ-2 Answer Date Recorded PHQ-2 Score 0 05/02/2024 [place] Depression Scale Answer Date Recorded [place] Depression Scale Total 13 07/12/2024 The thought of harming myself has occurred to me . Never 07/12/2024 Adolescent Education Answer Date Record ed Getting [...] Answer Date Recorded Do you have housing? (Housin g is defined as stable permanent housing and does not include staying outside in a car, in a tent, in an abandoned building, in an overnight [place] [facility] [place], or couch-surfing.) No 05/26/2024 Are you worried [...] e motionally safe where you currently live? No 07/12/2024 Within the past 12 months, h ave you been hit, slapped, kicked or otherwise physically hurt by someone? No 07/12/2024 Within the past 12 months, h ave you been humiliated or emotionally abused in other ways by your partner or ex-partner? No 07/12/2024 Comments No Sex and Gender Information Value Date Recorded Sex Assigned at Not on file Legal Sex Female 4:56 AM SEE SUPERVISOR Gender Identity Not on file Sexual Orientation Not on file Last Filed Vital Signs Vital Sign Reading Time Taken Comments Blood Pressure 116/76 07/12/2024 11:25 AM SEE SUPERVISOR Pulse 66 07/12/2024 11:25 AM SEE SUPERVISOR Temperature 37.2 C (98.9 F) 05/29/2024 11:05 AM CDT Respiratory Rate 20 07/12/2024 11:2 5 AM SEE SUPERVISOR Oxygen Saturation 100% 07/12/2024 11: 25 AM SEE SUPERVISOR Inhaled Oxygen Concentration - - Weight 91.5 kg (201 lb 12.8 oz) 024 12:35 PM CDT Height 154.9 cm (5' 1) 05/26/2024 10:5 2 AM CDT Body Mass Index 38.13 05/26/2024 10:52 AM CDT Plan of Treatment Health Maintenance Due Date Last Done Comments ADVANCE CARE PLANNING 1991 ANNUAL REVIEW OF HM ORDERS 1991 ASTHMA ACTION PLAN 1991 ASTHMA CONTROL TEST 1991 LIPID 1991 PNEUMOCOCCAL VACCINE: PEDIATRICS (0 to 5 YEARS) AND AT-RISK PATIENTS (6 to 49 YEARS) (1 of 2 - PCV) 2010 COVID-19 VACCINE ( - season) 2024 06/30/2021, 09/10/2020, 08/20/2020 PHQ-2 (once per calendar year) 2024 05/02/2024, 05/02/2024, 04/11/2024, Additional history exists YEARLY PREVENTIVE VISIT 08/13/2024 08/13/19 24, 05/05/2007, 03/12/2004 INFLUENZA VACCINE (#1) 2025 , 05/28/2023, 05/22/2022, Additional history exists PAP 08/13/2028 08/13/2023, 08/02, 08/13/2023, Additional history exists DTAP/TDAP/TD VACCINE (9 - Td or Tdap) 03/29/2034 03/29/2024, 07/23/2022, 10/08/2011, Additional history exists ZOSTER VACCINE (1 of 2) 2041 HEPATITIS B VACCINE Completed 11/19/1995, 02/12/1993, 07/02/1992 MENINGITIS VACCINE Aged Out 05/05/2007 No longer eligible based on patient's age to complete this topic HPV VACCINE Completed 10/20/2021, 10/31, 07/13/2007, Additional history exists HEPATITIS C SCREENING Completed 11/09/2023, 014 HIV SCREENING Completed 11/09/2023 RSV VACCINE Discontinued 05/02/2024 Insurance MEDICA CHOICE MEDICA CHOICE Advance Directives For more information, please contact: [phone] * Full Code (Latest Code Status on File) Date Activated Date Inactivated Comments 05/26/2024 4:31 PM 05/29/2024 2:41 PM All basic and advanced life-sustaining interventions are performed as appropriate Question Answer Comments Code status determined by: Discussion with patie nt/ legal decision maker * Full Code Date Activated Date Inactivated Comments 08/19/2022 10:53 AM 08/19/2022 2:57 PM All basic a nd advanced life-sustaining interventions are performed as appropriate Question Answer Comments Code status determined by: Unable to dis cuss and no AD/POLST on file; continue PREVIOUSLY ORDERED code status Care Teams Digital Photo Printer Relationship Specialty Start Date End Date [facility], [facility] [address] [place] [address] PCP - General 08/12/[address] [place] [address] Commercial Subcontractor Dietitian 03/13/24 Eliza Davis MD [address] [facility] [address] [place] [address] Assigned Surgical Provider 04/24/24 Nargis Morris APRN CNM [address] [place], [place] [address] Assigned OBGYN Provider 05/24/24 Libra Arevalo MD [address] [place], [place] [address] Assigned Pediatric Specialist Provider 05/24/24
--- OUTSIDE RECORDS SUMMARY | 2025-02-10 20:33 | XMS_ITS | Encounter Summary ---
Author Organization [facility] Address [address] [place] [address] Care Team Providers Care Semiautomatic Taper Operator Name Role Phone Amna Urbina PA-C Primary Care Provider + Encounter Details Date Type Department Care Team (Late st Contact Info) Description 07/02/2016 Refill Order [facility] Care at [address] [address] [place] [address] [place], [place] [address] Social History Tobacco Use Types Packs/Day Years [...] pt. 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
--- OUTSIDE RECORDS SUMMARY | 2025-02-10 20:33 | XMS_ITS | Encounter Summary ---
Author Organization [facility] Address [address] [place] [address]. [place] [address] Care Team Providers Care Vocational Rehabilitation Technician Name Role Phone [facility] Primary Care Provider Charmaine Fox MD Unavailable [phone] Unavailable Unavailab Eliza Horner MD Unavailable [phone] Nargis Morris APRN CN Unavailable Libra Arevalo MD Unavailable [phone] Encounter Details Date Type Department Care Team (Late st Contact Info) Description 04/26/2024 MyC Medical Advice [facility] [address] [place] [address] Sonal Belcher, MARIIA Social History Tobacco Use Types Packs/Day Years Used Date Smoking Tobacco: Never Smokeless Tobacco: Never Alcohol Use Standard Drinks/Week Comments Not Currently 0 (1 standard drink = 0.6 oz pur e alcohol) PHQ-2 Answer Date Recorded PHQ-2 Score 1 04/11/2024 Adolescent Education Answer Date Record ed Getting School Help Needed Not on file 05/01 Comments Yes Sex and Gender Information Value Date Recorded Sex Assigned at Not on file Legal Sex Female 4:56 AM CHILD ABUSE WORKER Gender Identity Not on file Sexual Orientation Not on file documented as of this encounter Plan of Treatment Not on file documented as of this encounter Visit Diagnoses Not on filedocumented in this encounter Additional Health Concerns Assessment Noted Time PHQ-9 Depression Total Score: 3 04/11/20 24 9:23 AM CDT documented as of this encounter Care Teams Vocational Rehabilitation Technician Relationship Specialty Start Date End Date Clinic, [facility] [address] [place] [address] PCP - General 08/12/22 Charmaine Fox MD [address] [facility] [address] [place], [place] [address] Assigned OBGYN Provider 02/22/2405/[address] [place] [address] Core Driller Helper Dietitian 03/13/24 Eliza Davis MD [address] [facility] [address] [place], [place] [address] Assigned Surgical Provider 04/24/24 Nargis Morris APRN CNM [address] [facility] [address] [place] [address] Assigned OBGYN Provider 05/24/24 Libra Arevalo MD [address] [place] [address] [place], [place] [id number] Assigned Pediatric Specialist Provider 05/24/24 documented as of this encounter
--- OUTSIDE RECORDS SUMMARY | 2025-02-10 20:33 | XMS_ITS | Encounter Summary ---
Author Organization [facility] Address [address] [place] [address] Care Team Providers Care Mixing Supervisor Name Role Phone Amna Urbina PA-C Primary Care Provider + Encounter Details Date Type Department Care Team (Late st Contact Info) Description 09/30/2016 Refill Order Digestive Care at [address] [address] [place] [address] [address] [place], [place] [address] Social History Tobacco Use Types Packs/Day Years [...] pt. [place] CMA 09/30/2016, 7:52 AM TERIA MANAGER documented in this encounter Plan of Treatment Not on file documented as of this encounter Visit Diagnoses Diagnosis Encounter for long-term (current) use of medications- Primary Encounter for long-term (current) use of other medications documented in this encounter Care Teams Mixing Supervisor Relationship Specialty Start Date End Date Amna Urbina PA-C [address] [place] [address] PCP - General Physician Supervisor Diagnostic 12/14/24 documented as of this encounter
--- OUTSIDE RECORDS SUMMARY | 2025-02-10 20:33 | XMS_ITS | Encounter Summary ---
Author Organization [facility] Address [facility] [place] [address] Care Team Providers Care Indian Nanny Name Role Phone Clinic, [facility] Primary Care Provider Charmaine Fox MD Unavailable [phone] Unavailable Unavailab Eliza Horner MD Unavailable [phone] Nargis Morris APRN CN Unavailable Libra Arevalo MD Unavailable [phone] Encounter Details Date Type Department Care Team (Late st Contact Info) Description 04/24/2024 [facility] [place] [address] [place], [place] [address] [place], [place] [id number] [facility] Social History Tobacco Use Types Packs/Day Years [...] on file Legal Sex Female 4:56 AM 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 BIOCHEMIST Gender Identity Not on file Sexual Orientation Not on file documented as of this encounter Plan of Treatment Not on file documented as of this encounter Visit Diagnoses Not on filedocumented in this encounter Additional Health Concerns Assessment Noted Time PHQ-9 Depression Total Score: 3 04/11/20 24 9:23 AM CDT documented as of this encounter Care Teams Indian Nanny Relationship Specialty Start Date End Date [facility] [address] [facility] [place] [address] PCP - General 08/12/22 Charmaine Fox MD [address] [place], [place] [address] Assigned OBGYN Provider 02/22/2405/[address] [place] [address] Computer Engineering Professor Dietitian 03/13/24 Eliza Davis MD [address] [facility] [address] [place], [place] [id number] Assigned Surgical Provider 04/24/24 Nargis Morris APRN CNM [address] [facility] [address] [place] [address] Assigned OBGYN Provider 05/24/24 Libra Arevalo MD [address] [place] [address] Assigned Pediatric Specialist Provider 05/24/24 documented as of this encounter
--- OUTSIDE RECORDS SUMMARY | 2025-02-10 20:33 | XMS_ITS | Encounter Summary ---
Author Organization [employer] Address [address] [place] [address] Care Team Providers Care Classified Advertising Clerk Name Role Phone Amna Urbina PA-C Primary Care Provider + Encounter Details Date Type Department Care Team (Late st Contact Info) Description 11/06/2016 Consent for Procedure/Treatme nt [facility] Department INFORMED CONSENT RECORD Social History Tobacco [...] on filedocumented in this encounter Care Teams Classified Advertising Clerk Relationship Specialty Start Date End Date Amna Urbina PA-C [address] [place], [place] [phone] PCP - General Physician Technical Account Representative 12/14/24 documented as of this encounter
[2025-02-10 20:38] VITALS: BP 125/83; PULSE 85; RESP 18; TEMP 36.8; O2SAT 99; BMI 34.0
--- NOTE | 2025-02-10 21:01 | ED.UPPEXIN ---
HPI - Extremity Injury (Upper) General Time Seen by Provider: 21:03 Date Seen: 02/10/25 Chief Complaint: Extremity Pain/Injury, Upper Stated Complaint: Left Wrist Injury Time Seen by Provider: 02/10/25 21:01 Source: patient Mode of arrival: ambulatory History of Present Illness HPI narrative: Juliette is a 34-year-old female presents emergency department for evaluation of left wrist pain. Patient is right handed female, states that around 8:00 p.m. she slipped on some toys and fell. Patient states she landed on her outstretched left arm. Patient complains of left wrist pain. Patient has tried icing her wrist, no medications prior to arrival. Patient denies any injuries. Patient denies any weakness, tingling, numbness, no other complaints. Patient has a 2-year-old and 9-month-old twins at home. Related Data Home Medications ?Medication ?Instructions ?Recorded ?Confirmed calcium 200 mg (as 2 tab PO DAILY 02/16/22 02/10/25 citrate)-vitamin D3 6.25 mcg (250 unit) tablet omeprazole 20 mg capsule,delayed 20 mg PO DAILY 02/16/22 02/10/25 release prenat.vits,macrina,[id number] 1 tab PO QDAY 02/16/22 02/10/25 fluoxetine 20 mg capsule 20 mg PO QAM 02/10/25 02/10/25 Previous Rx's ?Medication ?Instructions ?Recorded albuterol sulfate 90 mcg/actuation 2 puff inhalation Q6H PRN 11/09/23 aerosol inhaler shortness of breath or wheezing #6.7 grams Test Strips #100 ea 02/02/24 lancets #100 ea 02/02/24 Allergies Allergy/AdvReac Type Severity Reaction Status Date / Time No Known Allergies Allergy Verified 02/10/25 20:40 Review of Systems Narrative: Past medical history, past surgical history, medications, allergies, family history, and social history were reviewed with the patient. No additional pertinent items. A medically appropriate review of systems was performed with pertinent positives and negatives noted in HPI, all other systems negative. [facility] Medical History History of prior with IUGR ?Z87.59 - Personal history of other complications of , childbirth and the puerperium (ICD-10) Gestational diabetes ?O24.419 - Gestational diabetes mellitus in , unspecified control (ICD-10) Spontaneous ?O03.9 - Complete or unspecified spontaneous without complication (ICD-10) Mixed connective tissue disease ?M35.1 - Other overlap syndromes (ICD-10) Missed ?O02.1 - Missed (ICD-10) History of depression ?Z86.59 - Personal history of other mental and behavioral disorders (ICD-10) Gastroesophageal reflux disease ?K21.9 - Gastro-esophageal reflux disease without esophagitis (ICD-10) Hx of one miscarriage ?Z87.59 - Personal history of other complications of , childbirth and the puerperium (ICD-10) Surgical History S/P section ?Z98.891 - History of uterine scar from previous surgery (ICD-10) [place] teeth extracted ?K08.409 - Partial loss of teeth, unspecified cause, unspecified class (ICD-10) History of elbow surgery ?Z98.890 - Other specified postprocedural states (ICD-10) Family History Maternal Grandfather Heart disease Maternal Grandmother Pancreatic disease Mother High cholesterol Father Alcohol dependence Social History (Updated 11/10/23 @ 10:36 by Corina Valiente PA-C) Narrative: . Mental health caretaker. Nonsmoker. Catholic/cultural needs: No. Chemical or radiation exposure: No. Pre- tobacco use: No. Pre- alcohol use: No. Current tobacco use: No. Current alcohol use: No. Recreational drug use: No. Dietary restrictions: No. Blood transfusion acceptable in an emergency: Yes. PSYCHOSOCIAL HISTORY: History of depression or currently depressed: yes, history. Current or past physical, emotional, or sexual mistreatment: no. Problems that will make it hard to make it to appointments: no. What is your current living situation?: I presently have a place to live Problems where you live: no known problems In the past 12 months, utilities in danger of being shut off: no In past 12 months, lack of transportation kept you from medical appts, meetings, work, or getting things needed for daily living: no In the past 12 mos, have been you worried that your food would run out before you had money to buy more?: never true In the past 12 mos, the food you bought just didn't last and you didn't have money to buy more?: never true Smoking Status: Never smoker Second hand tobacco smoke exposure: No How often do you have a drink containing alcohol: never AUDIT-C Alcohol total score: 0 Non-prescribed substance use: denies use How often does anyone, including family, friends and others, physically hurt you: never How often does anyone, including family, friends and others, insult or talk down to you: never How often does anyone, including family, friends and others, threaten you with harm: never How often does anyone, including family, friends and others, scream or curse at you: never Exam Narrative: Exam Narrative: General: Afebrile, no acute distress HEENT: Normocephalic, atraumatic, conjunctiva normal. MMM Neck: non-tender, supple Cardio: regular rate. regular rhythm Resp: Normal work of breathing, no respiratory distress, lungs clear bilaterally, no wheezing, rhonchi, rales Chest/Back: no visual signs of trauma, no midline tenderness, no CVA tenderness Abdomen: soft, non distension, no tenderness, no peritoneal signs Neuro: alert and fully oriented. CN II-XII grossly intact. Grossly normal strength and sensation in all extremities. MSK: Left wrist with diffuse tenderness to palpation, no obvious deformities, ecchymosis, significant swelling. Decreased range of motion of left wrist secondary to pain, distally neurovascular intact with radial pulse present bilaterally, cap refill less than 3 seconds Integumentary/Skin: no rash visualized, normal color Psych: normal affect, normal behavior Const: Vital Signs, click to edit/add: Vital Signs - 24 hr 02/10/25 20:38 02/10/25 21:15 02/10/25 22:37 Temperature 98.2 F 98.2 F 98.2 F Pulse Rate [Right Pulse Oximeter] 85 82 Respiratory Rate 18 18 Blood Pressure [Ri ght Upper Arm] 125/83 121/74 Pulse Oximetry 99 99 Oxygen Delivery Me thod Room Air Room Air 02/10/25 22:39 Temperature 98.2 F Pulse Rate [Right Pulse Oximeter] 82 Respiratory Rate 18 Blood Pressure [Ri ght Upper Arm] 121/74 Pulse Oximetry Oxygen Delivery Me thod Course Course ED Course: Juliette is a 34-year-old female presents emergency department for evaluation of left wrist pain. Upon arrival patient is nontoxic appearing, afebrile, in distress secondary to pain. Patient was treated with ibuprofen upon arrival. I personally viewed and interpreted x-rays of the left wrist which demonstrate nondisplaced fracture of the distal radial metaphysis. I discussed patient management with Orthopedics who recommends dorsal volar splint, close outpatient follow-up in orthopedic clinic. Patient was placed in splint, sling, tolerated procedure well. Plan for discharge with continued supportive care, rest, elevation, Tylenol, ibuprofen, nonweightbearing, close outpatient follow-up with orthopedics. Return precautions discussed. Patient understands agrees to the plan. Vital Signs Vital signs: Initial Vital Signs Temperature 98.2 F 02/10/25 20:38 Temperature Source Temporal Artery Scan 02/10/25 20:38 Pulse Rate 85 02/10/25 20:38 Respiratory Rate 18 02/10/25 20:38 Blood Pressure 125/83 02/10/25 20:38 Blood Pressure Mean 97 02/10/25 20:38 Blood Pressure Position Sitting 02/10/25 20:38 Pulse Oximetry 99 02/10/25 20:38 Oxygen Delivery Method Room Air 02/10/25 20:38 Vital Signs Temperature 98.2 F 02/10/25 20:38 Pulse Rate 85 02/10/25 20:38 Respiratory Rate 18 02/10/25 20:38 Blood Pressure 125/83 02/10/25 20:38 Pulse Oximetry 99 02/10/25 20:38 Oxygen Delivery Method Room Air 02/10/25 20:38 Temperature 98.2 F 02/10/25 22:39 Pulse Rate 82 02/10/25 22:39 Respiratory Rate 18 02/10/25 22:39 Blood Pressure 121/74 02/10/25 22:39 Pulse Oximetry 99 02/10/25 22:37 Oxygen Delivery Method Room Air 02/10/25 22:37 Medications Administered Medications: Discontinued Medications Generic Name Dose Route Start Last Admin Trade Name Freq PRN Reason Stop Dose Admin Ibuprofen 600 mg 02/10/25 21:11 02/10/25 21:15 Ibuprofen 200 Mg Tablet PO 07/12/25 21:12 600 mg ONCE ONE Administration Discharge Plan Discharge Clinical Impression: Distal radius fracture, left Patient Disposition: Home, Self-Care Condition: Stable Instructions: Wrist Fracture in Adults (ED) Additional Instructions: Please follow-up in orthopedic clinic this week. Someone may call you Wednesday morning to schedule an appointment, if you do not hear from them please call [phone] to schedule an appointment. Please do not bear weight with her left upper extremity to follow-up in clinic. Please elevate while at rest. Please take ibuprofen 600 mg and Tylenol 1000 mg every 6 hours as needed for pain. Return to the emergency department if any worsening symptoms. It was a pleasure taking care today. Prescriptions: No Action albuterol sulfate 90 mcg/actuation HFA aerosol inhaler 2 puff inhalation Q6H PRN (Reason: shortness of breath or wheezing) Qty: 6.7 1RF calcium citrate-vitamin D3 200 mg-6.25 mcg (250 unit) tablet 2 tab PO DAILY omeprazole 20 mg capsule,delayed release(DR/EC) 20 mg PO DAILY prenat.vits,macrina,[id number] Tablet 1 tab PO QDAY (DME) Test Strips Misc See Rx Instructions .MEDSUPPLY Qty: 100 3RF Rx Instructions: Test blood sugar 4 times daily. (DME) lancets Misc See Rx Instructions .MEDSUPPLY Qty: 100 3RF Rx Instructions: Test blood sugar 4 times daily. fluoxetine 20 mg capsule 20 mg PO QAM Follow Up/Referrals: Provider,Not a Local [Primary Care Provider, Family Practice] Stand Alone Forms: [facility] Info Instructions Procedures Orthopedic Splinting/Casting Injury #1: Side: left Upper Extremity Injury Location: wrist Upper extremity immobilizer: volar splint (Dorsal volar) Applied by clinician: MD/DO Other Orthopedic Equipment: other (Sling) Conclusion: patient tolerated procedure
--- NOTE | 2025-02-10 21:11 | CRLHL7_ITS ---
For Patients: As a result of the Century Cures Act, medical imaging exams and procedure reports are released immediately into your electronic medical record. You may view this report before your referring provider. If you have questions, please contact your health care provider. INDICATION: Fall and pain. TECHNIQUE: Left wrist 3 views. COMPARISON: None. FINDINGS: Nondisplaced fracture of the distal radial metaphysis. Joint alignment and spaces are maintained. Mild soft tissue swelling. IMPRESSION: Nondisplaced distal radial fracture. Dictated by Sterling Lacy MD @ 02/10/2025 9:31:50 PM (Electronically Signed)
[2025-02-10 21:15] VITALS: TEMP 36.8
[2025-02-10] MEDS: IBUPROFEN 200 MG TABLET 600 MG PO (21:15)
[2025-02-10 22:37] VITALS: BP 121/74; PULSE 82; RESP 18; TEMP 36.8; O2SAT 99
[2025-02-10 22:39] VITALS: BP 121/74; PULSE 82; RESP 18; TEMP 36.8
== END 2025-02-10 22:39 | disposition home or self-care (01) ==
PROVIDERS: Emergency Provider Emergency Medicine
DX: S52.502A Unspecified fracture of the lower end of left radius, initial encounter for closed fracture (principal); W01.0XXA Fall on same level from slipping, tripping and stumbling without subsequent striking against object, initial encounter
CPT/HCPCS: 73110; 99283; 99285; A9270